=== PATIENT | male | born 1965 | race Caucasian/White ===

== ENCOUNTER 2022-08-29 00:25 | Inpatient (IN) ==
[2022-08-29 02:20] LABS: Hematocrit (blood only) 19.4 % (40.1-51.0); Hemoglobin 5.9 g/dl (14.0-18.0); Mean Corpuscular Hemoglobin 30.4 pg (25.0-34.0); Mean Corpuscular Hgb Conc 30.4 g/dL (32.0-36.0); Mean Platelet Volume 10.7 fL (9.4-12.4); Nucleated RBC # (auto) 0.19 K/uL (0-0); Nucleated RBC % (auto) 1.2 %; Platelet Count 334 K/uL (130-400); RDW Coefficient of Variation 15.5 % (11.5-14.5); RDW Standard Deviation 55.3 fL (36.4-46.3); Red Blood Count 1.94 M/uL (4.63-6.08); White Blood Count 15.91 K/ul (4.8-10.8)
[2022-08-29 02:21] LABS: Albumin Globulin Ratio 1.2 (0.9-2); Albumin Level 3.2 gm/dl (3.4-5.0); BUN Creatinine Ratio 23.3 (10-20); Bilirubin,Total 0.6 mg/dl (0.2-1.0); Calcium 9.1 mg/dl (8.5-10.1); Creatinine Clr Calc Pharmacy 74.9 ml/min; Est GFR (African American) 40.5 ml/min; Globulin 2.7 gm/dl (2.5-4.0); Potassium 4.7 mmol/L (3.5-5.1); Total Protein 5.9 gm/dl (6.0-8.3)
[2022-08-29 02:43] LABS: Basophils # (auto) 0.04 K/uL (0-0.2); Basophils % (auto) 0.3 %; Eosinophils # (auto) 0.33 K/uL (0-0.50); Eosinophils % (auto) 2.1 %; Hypochromasia Present; Immature Granulocytes % (auto) 0.6 %; Lymphocytes % (auto) 8.8 %; Monocytes % (auto) 8.8 %; Neutrophils # (auto) 12.64 K/uL (1.4-6.5); Neutrophils % (auto) 79.4 %; Stomatocytes 2+
[2022-08-29 02:54] LABS: Troponin I High Sensitivity 342.7 pg/ml (0-20)
[2022-08-29] MEDS ORDERED: CEFEPIME 2,000 MG/20 ML VIAL IV STA (03:09)
[2022-08-29] MEDS ORDERED: SODIUM CHLORIDE 0.9% 250 ML IV PRN (03:09)
[2022-08-29] MEDS ORDERED: SODIUM CHLORIDE 0.9% 1000ML 1,000 ML IV SCH (03:15)
--- NOTE | 2022-08-29 03:23 | Emergency Department Note ---
History of Present Illness General Chief complaint: Weakness Time Seen by Provider: 08/29/22 02:30 Source: patient and family Limitations: no limitations History of Present Illness Provider complaint: Weakness This is a 56-year-old male presents to the emergency department with family at bedside due to concern for increased weakness. at bedside states patient had 2 days of bloody stools last week. He had bright red blood and passage of clots. She denies any preceding melena. No prior history of GI bleed. She states he does not use any blood thinners. Patient denies any abdominal pain. She states he has had increased fatigue over the last several days and today seemed much weaker compared to normal. No recent fevers, chills, cough or cold symptoms. Patient has never had a colonoscopy. Home Medications Medication Instructions Recorded Confirmed Type carvedilol 6.25 mg tablet 12.5 mg PO AMHS 08/29/22 08/29/22 History verapamil 240 mg 24 hr 240 mg PO QAM 08/29/22 08/29/22 History capsule,extended release Allergies Allergy/AdvReac Type Severity Reaction Status Date / Time Iodinated Contrast Media Allergy Hives Verified 08/29/22 01:44 iodine Allergy Hives Verified 08/29/22 01:44 Past Med/Surg History Medical History (Updated 08/30/22 @ 05:05 by Nina Corona DO) Obesity hypoventilation syndrome Social History Smoking Status: Never smoker Hx Alcohol Use: No Hx Substance Use: No Preferred Language: Syriac Communication Ability: Effective 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 Beliefs That Will Affect Care: None Current Living Situation: Spouse Feels Safe at Home: Yes Review of Systems A total of 10 systems reviewed and were otherwise negative All systems reviewed & are unremarkable except as noted in HPI & below Physical Exam Vital Signs Vital Signs - 24 hr 08/29/22 05:52 08/29/22 05:40 08/29/22 05:50 Temperature 37.4 C Temperature Source Axillary Pulse Rate 79 75 87 Pulse Rate from SpO2 Sensor 87 86 Respiratory Rate 26 H 26 H 23 Blood Pressure 132/79 Blood Pressure Mean 96 Pulse Oximetry 93 80 L 91 Oxygen Flow Rate 3 08/29/22 05:53 08/29/22 05:53 08/29/22 06:00 Temperature Temperature Source Pulse Rate 92 H Pulse Rate from SpO2 Sensor 93 H Respiratory Rate 21 Blood Pressure 132/79 134/76 Blood Pressure Mean 96 95 Pulse Oximetry 96 Oxygen Flow Rate 08/29/22 06:00 08/29/22 06:10 Temperature Temperature Source Pulse Rate 78 96 H Pulse Rate from SpO2 Sensor 86 82 Respiratory Rate 21 18 Blood Pressure Blood Pressure Mean Pulse Oximetry 76 L 90 Oxygen Flow Rate GENERAL: alert, unwell appearing, well nourished, no distress, non-toxic, BMI>56 EYE EXAM: normal conjunctiva, PERRL and EOM's grossly intact OROPHARYNX: no exudate, no erythema, lips, buccal mucosa, and tongue normal and mucous membranes are dry NECK: supple, no nuchal rigidity, no adenopathy, non-tender LUNGS: Clear to auscultation. Normal chest wall mechanics, no w/r/r HEART: no murmurs, S1 normal and S2 normal ABDOMEN: abdomen soft, non-tender, normo-active bowel sounds, no masses, no rebound or guarding. BACK: Back is symmetrical on inspection and there is no deformity, no midline tenderness, no CVA tenderness. SKIN: no rashes and no bruising UPPER EXTREMITIES: upper extremities are grossly normal. FROM, nml pulses b/l. LOWER EXTREMITIES: No pitting edema. FROM, nml pulses b/l. NEURO EXAM: Somnolent but arousable, is oriented when awake, cranial nerves II- XII grossly intact, normal speech, no gross weakness of arms, no gross weakness of legs. Gross sensation intact. Course Administered Medications Acetaminophen (Acetaminophen 325 Mg Tab) 650 mg PO Q4H PRN PRN Reason: Pain or Fever Stop: 09/28/22 07:58 Last Admin: 08/30/22 04:27 Dose: 650 mg Documented By: FLORENTINO Sodium Chloride (Nss 1000ml) 1,000 mls @ 100 mls/hr IV .Q10H STACY Stop: 09/28/22 22:29 Last Infusion: 08/30/22 05:05 Dose: 0 mls/hr Documented By: Admin: 08/29/22 23:44 Dose: 100 mls/hr Documented By: GOLDIE Pantoprazole Sodium 40 mg/ (Syringe) 10 mls @ 5 mls/min IV BID STACY Stop: 09/28/22 22:29 Last Admin: 08/29/22 23:37 Dose: 5 mls/min Documented By: GOLDIE Sodium Chloride (Nss) 250 mls @ 15 mls/hr IV .[id number] PRN PRN Reason: For Transfusion Duration Stop: 08/30/22 13:10 Last Admin: 08/30/22 04:05 Dose: 15 mls/hr Documented By: FLORENTNIO Metoprolol Tartrate (Metoprolol Tartrate 1 Mg/Ml Vial) 2.5 mg IV Q6H STACY Stop: 09/28/22 11:59 Last Admin: 08/30/22 00:28 Dose: 2.5 mg Documented By: Admin: 08/29/22 18:54 Dose: Not Given Documented By: Admin: 08/29/22 12:44 Dose: 2.5 mg Documented By: PETER Verapamil HCl (Verapamil Hcl 240 Mg Tabcr) 240 mg PO QAM [facility] Stop: 09/28/22 08:59 Last Admin: 08/29/22 12:34 Dose: Not Given Documented By: PETER Discontinued Medications Albuterol (Albut/Ipratrop 3mg/0.5mg Neb 3 Ml Vial) 3 ml NEB NOW STA; Protocol Stop: 08/29/22 06:08 Last Admin: 08/29/22 06:37 Dose: 3 ml Documented By: SANTIAGO Cefepime HCl (Maxipime) 2,000 mg in 20 mls @ 5 mls/min IV NOW STA; Protocol Stop: 08/29/22 03:12 Last Admin: 08/29/22 03:53 Dose: 5 mls/min Documented By: SANTIAGO Sodium Chloride (Nss 1000ml) 1,000 mls @ 125 mls/hr IV .Q8H STACY Stop: 09/28/22 03:14 Last Infusion: 08/29/22 06:38 Dose: 0 mls/hr Documented By: Admin: 08/29/22 03:53 Dose: 125 mls/hr Documented By: SANTIAGO Sodium Chloride (Nss 1000ml) 1,000 mls @ 75 mls/hr IV .[id number] ONE Stop: 08/29/22 19:40 Last Infusion: 08/29/22 21:45 Dose: 0 mls/hr Documented By: Admin: 08/29/22 06:39 Dose: 75 mls/hr Documented By: APTRICK Metoprolol Tartrate (Metoprolol Tartrate 1 Mg/Ml Vial) 2.5 mg IV NOW STA Stop: 08/29/22 07:25 Last Admin: 08/29/22 08:10 Dose: 2.5 mg Documented By: ALEK Critical Care Time Critical Care Time: Yes Total Critical Care Time: 41 Critical care of 41 min performed to assess and manage high likelihood of life- threatening severe anemia and GI bleed, involving labs and imaging performed with assessment to evaluate anemia and GI bleed diagnosis with frequent reassessment. This time includes bedside time, treatment discussions with patient/family/consultants, documentation time and excludes procedure time. Medical Decision Making Differential Diagnosis Differential diagnosis includes etiologies such as diverticulosis, AVM, coagulopathy, colitis, inflammatory bowel disease, malignancy, Saba-Anguiano tear, esophagitis, peptic ulcer disease, variceal bleed, gastritis, epistaxis, fissure, hemorrhoids, as well as others were entertained. Medical Records Attestation: I reviewed the patient's medical records. Home Medications Current Medication List: was personally reviewed by me Laboratory Data Attestation: I reviewed the patient's lab results. Result diagrams: 08/30/22 01:38 08/29/22 15:50 Lab Results 08/29/22 08/29/22 08/29/22 Range/Units 01:14 01:14 01:14 WBC 15.91 H (4.8-10.8) K/ul RBC 1.94 L (4.63-6.08) M/uL Hgb 5.9 L* (14.0-18.0) g/dl Hct 19.4 L* (40.1-51.0) % MCV 100.0 (80.0-100.0) fL MCH 30.4 (25.0-34.0) pg MCHC 30.4 L (32.0-36.0) g/dL RDW Std Deviation 55.3 H (36.4-46.3) fL RDW Coeff of Cheryl 15.5 H (11.5-14.5) % Plt Count 334 (130-400) K/uL MPV 10.7 (9.4-12.4) fL Immature Gran % (Auto) 0.6 % Neut % (Auto) 79.4 % Lymph % (Auto) 8.8 % [place] % (Auto) 8.8 % Eos % (Auto) 2.1 % Baso % (Auto) 0.3 % Neut # (Auto) 12.64 H (1.4-6.5) K/uL Lymph # (Auto) 1.40 (1.2-3.4) K/uL [place] # (Auto) 1.40 H (0.24-0.82) K/uL Eos # (Auto) 0.33 (0-0.50) K/uL Baso # (Auto) 0.04 (0-0.2) K/uL Immature Gran # (Auto) 0.10 H (0.00-0.02) K/uL Absolute Nucleated RBC 0.19 H (0-0) K/uL Nucleated RBC % (auto) 1.2 % Hypochromasia Present Stomatocytes 2+ PT 11.0 (9.0-12.0) Seconds INR 1.0 (0.9-1.1) Sodium 139 (136-145) mmol/L Potassium 4.7 (3.5-5.1) mmol/L Chloride 103 (98-107) mmol/L Carbon Dioxide 29 (21-32) mmol/L Anion Gap 7 (3-11) BUN 48 H (6-23) mg/dl Creatinine 2.06 H (0.6-1.4) mg/dl Est Cr Clr Drug Dosing 74.9 ml/min Est GFR ( Amer) 40.5 ml/min Est GFR (Non-Af Amer) 35.0 ml/min BUN/Creatinine Ratio 23.3 H (10-20) Glucose 151 H (70-99(Fasting)) mg/dl Calcium 9.1 (8.5-10.1) mg/dl Total Bilirubin 0.6 (0.2-1.0) mg/dl AST 12 L (13-39) U/L ALT 10 (7-52) U/L Alkaline Phosphatase 55 (34-104) U/L Troponin I High Sens 342.7 H* (0-20) pg/ml Total Protein 5.9 L (6.0-8.3) gm/dl Albumin 3.2 L (3.4-5.0) gm/dl Globulin 2.7 (2.5-4.0) gm/dl Albumin/Globulin Ratio 1.2 (0.9-2) TSH (0.300-4.500) uIu/ml Blood Type Blood Type Recheck Antibody Screen Crossmatch 08/29/22 08/29/22 08/29/22 Range/Units 01:14 03:02 04:58 WBC (4.8-10.8) K/ul RBC (4.63-6.08) M/uL Hgb (14.0-18.0) g/dl Hct (40.1-51.0) % MCV (80.0-100.0) fL MCH (25.0-34.0) pg MCHC (32.0-36.0) g/dL RDW Std Deviation (36.4-46.3) fL RDW Coeff of Cheryl (11.5-14.5) % Plt Count (130-400) K/uL MPV (9.4-12.4) fL Immature Gran % (Auto) % Neut % (Auto) % Lymph % (Auto) % [place] % (Auto) % Eos % (Auto) % Baso % (Auto) % Neut # (Auto) (1.4-6.5) K/uL Lymph # (Auto) (1.2-3.4) K/uL [place] # (Auto) (0.24-0.82) K/uL Eos # (Auto) (0-0.50) K/uL Baso # (Auto) (0-0.2) K/uL Immature Gran # (Auto) (0.00-0.02) K/uL Absolute Nucleated RBC (0-0) K/uL Nucleated RBC % (auto) % Hypochromasia Stomatocytes PT (9.0-12.0) Seconds INR (0.9-1.1) Sodium (136-145) mmol/L Potassium (3.5-5.1) mmol/L Chloride (98-107) mmol/L Carbon Dioxide (21-32) mmol/L Anion Gap (3-11) BUN (6-23) mg/dl Creatinine (0.6-1.4) mg/dl Est Cr Clr Drug Dosing ml/min Est GFR ( Amer) ml/min Est GFR (Non-Af Amer) ml/min BUN/Creatinine Ratio (10-20) Glucose (70-99(Fasting)) mg/dl Calcium (8.5-10.1) mg/dl Total Bilirubin (0.2-1.0) mg/dl AST (13-39) U/L ALT (7-52) U/L Alkaline Phosphatase (34-104) U/L Troponin I High Sens (0-20) pg/ml Total Protein (6.0-8.3) gm/dl Albumin (3.4-5.0) gm/dl Globulin (2.5-4.0) gm/dl Albumin/Globulin Ratio (0.9-2) TSH 1.398 (0.300-4.500) uIu/ml Blood Type O Negative Blood Type Recheck O Negative Antibody Screen NEGATIVE Crossmatch See Detail Imaging Data My Impression: X-ray: I interpreted the following studies. Chest: A single view study of the chest was reviewed and was negative for cardiomegaly, focal infiltrate, effusion, pulmonary edema. Appearance of wide mediastinum. Radiologist's Impression: CT abdomen and pelvis without contrast: No bowel obstruction. Evaluation of the ascending colon is limited by partial exclusion and artifact. No free intraperitoneal fluid or pneumoperitoneum. Liver, gallbladder, pancreas, spleen and adrenal glands are unremarkable. The kidneys are somewhat atrophic in appearance with probable cortical cyst. No hydronephrosis or obstructing nephrolithiasis. The retroperitoneal vascular structures are unremarkable. No retroperitoneal hematoma. The bladder is unremarkable. No acute osseous or obvious significant overlying soft tissue abnormality, accounting for limitations with partial exclusion and artifact, to explain the patient's reported anemia. Radiologist: Rony Cevallos MD CT chest without contrast: Slightly restrictive appearance of the lungs, presumably from prominent overlying soft tissues, with subsegmental atelectatic changes. No pleural effusion or pneumothorax. The thoracic aorta and cardiac chambers are unremarkable. No pericardial effusion. No mediastinal traumatic injury or adenopathy. No acute osseous or significant overlying acute soft tissue abnormality to explain the patient's reported anemia. Radiologist: Rony Cevallos, ECG Data Attestation: I personally reviewed and interpreted this ECG as follows: Indication: + weakness Rate (beats per minute): 80 Rhythm: + normal sinus ECG Intervals/blocks: + Normal QRS and + Normal QT ECG [place]: + Normal ECG ST segments: + Nonspecific ST abnormalities MDM Narrative An order was placed for continuous cardiac monitoring. The monitor shows a rate of _92_ with _normal sinus_ rhythm. This is a 56-year-old male presents emergency department due to family's concern for weakness and recent GI bleed. Patient hemodynamically stable with borderline tachycardia initially. Patient normotensive and afebrile. Labs drawn and sent and patient noted to be severely anemic. No prior GI history, no prior screening colonoscopy. Patient's somnolent initially and provided most of initial history, however patient could be aroused and answer questions of orientation appropriately however deferred to his to answer additional questioning. Blood consent obtained from at bedside with patient's verbal consent. Patient does not use any antiplatelet or anticoagulation therapy. 2 units of packed red cells were ordered. Patient also found to have acute kidney injury of unclear etiology. Patient was noted to have symptoms of RUTH at bedside while somnolent. CT imaging reassuring. Patient and updated on all results and the need for transfusion as well as additional inpatient evaluation and management. They verbalized understanding and were in agreement with the plan. Impression & Plan Weakness, Severe anemia, Acute GI bleeding, Elevated troponin, CHERYL (acute kidney injury) Discharge Plan Visit Data Chief Complaint: Weakness ED Provider: Nina Corona Discharge Problem: Weakness, Severe anemia, Acute GI bleeding, Elevated troponin, CHERYL (acute kidney injury) Patient Disposition: Admitted As Inpatient Discharge Instructions Interventions: ED Discharge Assessment Last Done: 08/29/22 16:48
--- NOTE | 2022-08-29 05:18 | History & Physical Report ---
Date of Service August 29, 2022 Assessment & Plan (1) Encephalopathy: Plan: Multifactorial : Respiratory failure, possible OHS, untreated RUTH (patient still has to go for a sleep study as per .) Acute on chronic anemia secondary to L GIB rule out C. difficile ARF on CKD Rule out UTI, possible sepsis Troponin elevation secondary to illness hypertension, stable hyperlipidemia, statin noncompliance morbid obesity hx gout/rheumatoid arthritis chronic back pain medication noncompliance as per records Hyperglycemia likely prediabetes, hemoglobin A1c of 5.31 July 2022 as per outpatient records ongoing tobacco abuse PCU Baseline ABG BiPAP for now Pulmonary consult Re: Respiratory failure, probable RUTH Stool C. difficile GI consult Re: L GIB Anemia work-up, transfuse PRBC to maintain hemoglobin greater than 7 and or for symptomatic anemia Starks catheter now, baseline UA, monitor creatinine response to IVF CS, check lactic acid Trend troponin, TTE if with progression. Nicotine patch DVT prophylaxis. SCDs Re: GI bleed Full code as per , Ms. Rima Bowie. She requests updates from providers through [phone]. Total critical care time was 40 minutes. Text document was generated using [employer] voice recognition software. It may contain grammatical or spelling errors. Kindly contact undersigned for clarification of any documentation item in question. History of Present Illness Chief Complaint: Weakness, rectal bleed as per Primary Care Provider: Dr. Holcomb History obtained from patient, family, and records. Limited history from patient secondary to lethargy Medical history significant for hypertension, hyperlipidemia, CRI (baseline creatinine 1.4 ), chronic anemia (baseline hemoglobin of 9 ), morbid obesity, possible RUTH as per records, gout, rheumatoid arthritis, chronic back pain, medication noncompliance as per records, ongoing tobacco abuse. Patient moved back to [place] from [place] last June 2022. 3 hospital confinements at [place] for kidney failure and hypoxia prior to return to [place]. 3 days ago, patient started feeling sick as per . Nausea, vomiting, bloody diarrhea. Increasing weakness. No known sick contacts. No recent antibiotic Rx. No recent travel. Patient increasingly sleepy as per . No headache complaints as per . Patient brought to the ER for evaluation. Cefepime administered at the ER for possible infection. 2 units PRBC ordered to be transfused at the ER with hemoglobin of 5.9. Episodic apnea at the ER. Medical History as above Surgical History : Toe surgery, left breast biopsy, knee surgeries, tonsillectomy/adenoidectomy, dental surgery Family History : DM, hypertension Personal/Social history : 5 cigarettes a day, no EtOH intake, disabled Allergies Allergy/AdvReac Type Severity Reaction Status Date / Time Iodinated Contrast Media Allergy Hives Verified 08/29/22 01:44 iodine Allergy Hives Verified 08/29/22 01:44 Home Medications Medication Instructions Recorded Confirmed Type carvedilol 6.25 mg tablet 12.5 mg PO AMHS 08/29/22 08/29/22 History verapamil 240 mg 24 hr 240 mg PO QAM 08/29/22 08/29/22 History capsule,extended release Past Med/Surg History Social History Smoking Status: Never smoker Hx Alcohol Use: No Hx Substance Use: No Preferred Language: Kiswahili Communication Ability: Effective Surgical Technologist Required: No Beliefs That Will Affect Care: None Current Living Situation: Spouse Feels Safe at Home: Yes Review of Systems Review of Systems: Could not be reliably obtained secondary to lethargic state Physical Exam Physical Exam: GENERAL: uncomfortable, lethargic, episodic apnea, minimal respiratory distress SKIN: Pallor, warm HEENT: Pale palpebral conjunctivae, no ptosis, dry buccal mucosa, nasal cannula in place NECK : Supple, short neck, no tenderness CHEST : CTA, no tenderness HEART : Decreased breath sounds, scattered expiratory wheezes, no obvious murm urs ABDOMEN: Some distention, nontender EXTREMITIES : Bilateral LE swelling , no LE tenderness, no other conspicuous deformities noted NEUROLOGIC : Lethargic, no facial asymmetry, gait and stance not assessed Results & Data Results & Data ([facility]) Vital Signs (Past 12 Hours) Vital Signs Temp Pulse Resp BP Pulse Ox O2 Del Method O2 Flow Rate 08/29/22 04:40 77 26 H 88 L Nasal Cannula 3 08/29/22 04:31 147/105 H 08/29/22 04:31 83 16 90 Nasal Cannula 3 08/29/22 04:30 79 19 90 Nasal Cannula 3 08/29/22 04:20 91 H 30 H 92 08/29/22 04:10 93 H 21 94 08/29/22 04:00 90 18 89 L Nasal Cannula 3 08/29/22 04:00 145/75 H 08/29/22 03:50 70 22 95 08/29/22 03:40 91 H 16 94 08/29/22 03:35 140/86 08/29/22 03:10 94 H 17 08/29/22 03:00 102 H 22 08/29/22 03:00 159/100 H 08/29/22 02:50 92 H 25 H 08/29/22 02:40 84 26 H 08/29/22 02:30 102 H 16 08/29/22 02:30 175/77 H 08/29/22 02:20 91 H 18 08/29/22 02:10 93 H 17 08/29/22 02:00 101 H 23 08/29/22 02:00 146/98 H 08/29/22 01:50 90 29 H 08/29/22 01:40 92 H 28 H 08/29/22 01:30 106 H 23 94 08/29/22 01:30 146/96 H 08/29/22 01:20 104 H 28 H 92 08/29/22 01:10 104 H 23 90 08/29/22 01:00 87 22 08/29/22 01:00 144/66 H 08/29/22 00:50 106 H 16 87 L 08/29/22 00:40 100 H 33 H 87 L 08/29/22 00:35 94 H 29 H 86 L 08/29/22 01:20 98 Nasal Cannula 3 08/29/22 00:19 Room Air 08/29/22 00:19 36.7 C 92 H 25 H 138/76 93 Room Air Laboratory Results Laboratory Results WBC 15.91 K/ul (4.8-10.8) H 08/29/22 01:14 RBC 1.94 M/uL (4.63-6.08) L 08/29/22 01:14 Hgb 5.9 g/dl (14.0-18.0) L* 08/29/22 01:14 Hct 19.4 % (40.1-51.0) L* 08/29/22 01:14 MCV 100.0 fL (80.0-100.0) 08/29/22 01:14 MCH 30.4 pg (25.0-34.0) 08/29/22 01:14 MCHC 30.4 g/dL (32.0-36.0) L 08/29/22 01:14 RDW Std Deviation 55.3 fL (36.4-46.3) H 08/29/22 01:14 RDW Coeff of Cheryl 15.5 % (11.5-14.5) H 08/29/22 01:14 Plt Count 334 K/uL (130-400) 08/29/22 01:14 MPV 10.7 fL (9.4-12.4) 08/29/22 01:14 Immature Gran % (Auto) 0.6 % 08/29/22 01:14 Neut % (Auto) 79.4 % 08/29/22 01:14 Lymph % (Auto) 8.8 % 08/29/22 01:14 [place] % (Auto) 8.8 % 08/29/22 01:14 Eos % (Auto) 2.1 % 08/29/22 01:14 Baso % (Auto) 0.3 % 08/29/22 01:14 Neut # (Auto) 12.64 K/uL (1.4-6.5) H 08/29/22 01:14 Lymph # (Auto) 1.40 K/uL (1.2-3.4) 08/29/22 01:14 [place] # (Auto) 1.40 K/uL (0.24-0.82) H 08/29/22 01:14 Eos # (Auto) 0.33 K/uL (0-0.50) 08/29/22 01:14 Baso # (Auto) 0.04 K/uL (0-0.2) 08/29/22 01:14 Immature Gran # (Auto) 0.10 K/uL (0.00-0.02) H 08/29/22 01:14 Absolute Nucleated RBC 0.19 K/uL (0-0) H 08/29/22 01:14 Nucleated RBC % (auto) 1.2 % 08/29/22 01:14 Hypochromasia Present 08/29/22 01:14 Stomatocytes 2+ 08/29/22 01:14 PT 11.0 Seconds (9.0-12.0) 08/29/22 01:14 INR 1.0 (0.9-1.1) 08/29/22 01:14 Sodium 139 mmol/L (136-145) 08/29/22 01:14 Potassium 4.7 mmol/L (3.5-5.1) 08/29/22 01:14 Chloride 103 mmol/L (98-107) 08/29/22 01:14 Carbon Dioxide 29 mmol/L (21-32) 08/29/22 01:14 Anion Gap 7 (3-11) 08/29/22 01:14 BUN 48 mg/dl (6-23) H 08/29/22 01:14 Creatinine 2.06 mg/dl (0.6-1.4) H 08/29/22 01:14 Est Cr Clr Drug Dosing 74.9 ml/min 08/29/22 01:14 Est GFR ( Amer) 40.5 ml/min 08/29/22 01:14 Est GFR (Non-Af Amer) 35.0 ml/min 08/29/22 01:14 BUN/Creatinine Ratio 23.3 (10-20) H 08/29/22 01:14 Glucose 151 mg/dl (70-99(Fasting)) H 08/29/22 01:14 Calcium 9.1 mg/dl (8.5-10.1) 08/29/22 01:14 Total Bilirubin 0.6 mg/dl (0.2-1.0) 08/29/22 01:14 AST 12 U/L (13-39) L 08/29/22 01:14 ALT 10 U/L (7-52) 08/29/22 01:14 Alkaline Phosphatase 55 U/L (34-104) 08/29/22 01:14 Troponin I High Sens 342.7 pg/ml (0-20) H* 08/29/22 01:14 Total Protein 5.9 gm/dl (6.0-8.3) L 08/29/22 01:14 Albumin 3.2 gm/dl (3.4-5.0) L 08/29/22 01:14 Globulin 2.7 gm/dl (2.5-4.0) 08/29/22 01:14 Albumin/Globulin Ratio 1.2 (0.9-2) 08/29/22 01:14 TSH 1.398 uIu/ml (0.300-4.500) 08/29/22 01:14 Blood Type O Negative 08/29/22 03:02 Antibody Screen NEGATIVE 08/29/22 03:02 Crossmatch See Detail 08/29/22 03:[address] chest initial read: Slightlyrestrictive appearance to the lungs, presumablyfromprominent overlying soft tissues, with subsegmental atelectatic changes. No pleural effusion or pneumothorax. The thoracic aorta and cardiac chambers are unremarkable. No pericardial effusion. No mediastinal traumatic injuryor adenopathy. No acute osseous or significant overlying acute soft tissue abnormalityto explain the patient's reported anemia. CT abdomen pelvis initial read: No bowel obstruction. Evaluation of the ascending colon is limited bypartial exclusion and artifact. No free intraperitoneal fluid or pneumoperitoneum. The liver, gallbladder, pancreas, spleen and adrenal glands are unremarkable. The kidneys are somewhat atrophic in appearance with probable cortical cysts. No hydronephrosis or obstructing nephrolithiasis. The retroperitoneal vascular structures are unremarkable. No retroperitoneal hematoma. The bladder is unremarkable. No acute osseous or obvious significant overlying soft tissue abnormality, accounting for limitations with partial exclusion and artifact, to explain the patient's reported anemia. EKG as per my interpretation : Rate 80, NSR, LAD, LAFB, no ischemia
[2022-08-29 05:42] LABS: Influenza A virus by PCR Negative (Neg); Influenza B virus by PCR Negative (Neg); RSV by PCR Negative (Neg); SARS CoV2 RNA(COVID-19) Ceph NEGATIVE (Negative)
[2022-08-29] MEDS ORDERED: ALBUT/IPRATROP 3MG/0.5MG NEB 3 ML VIAL NEB STA (06:07)
[2022-08-29] MEDS ORDERED: SODIUM CHLORIDE 0.9% 1000ML 1,000 ML IV ONE (06:21)
[2022-08-29] MEDS ORDERED: METOPROLOL TARTRATE 1 MG/ML VIAL IV STA (07:24)
[2022-08-29 07:37] LABS: Reticulocytes # 0.16 10^6/uL (0.02-0.10)
--- NOTE | 2022-08-29 07:40 | CT Scan Report ---
CT OF THE CHEST WITHOUT IV CONTRAST CLINICAL HISTORY: New anemia. COMPARISON STUDY: No previous studies for comparison. CT DOSE: 3858.11 mGy.cm TECHNIQUE: Axial images of the chest were obtained without IV contrast. Images were reviewed in the axial, sagittal, and coronal planes. IV contrast was not administered for this examination. Automat ed exposure control was utilized for the study. A dose lowering technique was utilized adhering to t he principles of ALARA. FINDINGS: This study is compromised given body wall contacting the gantry with resultant artifact. M ild cardiomegaly is noted. There is no pericardial effusion. No enlarged axillary, mediastinal or hil ar lymph nodes are present. No hematoma is identified within the chest. The right chest is partially obscured on this exam. Linear and groundglass opacities within lungs favor atelectasis. No consolidat ion to suggest pneumonia. There is no pneumothorax or pleural effusion. No acute fracture or suspicio us lesion within the bony thorax is noted. The abdomen and pelvis CT will be reported separately. IMPRESSION: 1. No acute process within the chest. No hematoma identified. Right hemithorax partially obscured by artifact. 2. Mild cardiomegaly. ACT 112: Negative or not required by law. Electronically signed by: Shan Pedroza M.D. 08/29/2022 7:39 AM
--- NOTE | 2022-08-29 07:53 | XRay Report ---
XR chest 1V portable CLINICAL HISTORY: weakness COMPARISON STUDY: No previous studies for comparison. FINDINGS: Cardiomegaly is noted. There is no evidence for pulmonary edema. There is no pneumothorax o r pleural effusion. No consolidation is identified to suggest pneumonia. Mediastinal widening is due to mediastinal lipomatosis. IMPRESSION: No acute cardiopulmonary findings. Cardiomegaly. ACT 112: Negative or not required by law. Electronically signed by: Shan Pedroza M.D. 08/29/2022 7:51 AM
[2022-08-29 08:23] LABS: Troponin I High Sensitivity 460.9 pg/ml (0-20)
[2022-08-29 08:38] LABS: Magnesium 2.3 mg/dl (1.7-2.4)
[2022-08-29 08:41] LABS: Vitamin B12 358 pg/ml (180-914)
--- NOTE | 2022-08-29 08:44 | Gastrointestinal Consultation ---
Date of Consultation August 29, 2022 Assessment & Plan (1) Rectal bleed: (2) Severe anemia: (3) Encephalopathy: Plan Is a 56-year-old male with history of morbid obesity, RUTH, CKD, chronic anemia, who presented today with his , for several days of weakness, reported nausea vomiting and some report of rectal bleeding, though not for several days according to ER staff. He is found to be severely anemic (acute on chronic) with a hemoglobin of 5.9, with elevated troponin, CHERYL, and with respiratory failure requiring BiPAP. Getting 2 of 2 units of PRBC at present. Etiology of his presentation not clear at this time. Does not appear to have liver disease based on his lab work and prior history; no known prior GIB or HE so etiology not likely hepatic Abd soft, nontender; No overt GI bleeding in the ER. He is hemodynamically stable. He is a smoker; is a known risk factor for PUD though history doesn't sound like melena. With ? bloody diarrhea could consider infectious GI source. - Will plan to speak to his upon her returning my call to get more a history - For now agree with transfusion PRN, trend H&H - Please monitor and document GI output - Await CTAP, cultures - NPO for now - Pulm consult pending - C. diff testing when stool is available - Supportive care with IVF - Could consider PPI to cover for UGI source - Will determine need and timing for possible endoscopy based on further history gathering, reviewing his ER w/u including CT Thank you for allowing us to participate in the care of this patient. Please call with any acute changes, questions or concerns. Please see addendum below with additional recommendation from my supervising physician. Supervising Physician Co-Signing Physician Notes I performed a history and physical examination of the patient today, including specifically on physical exam - soft abdomen. I have discussed the patient's management with the advanced practitioner. Please refer to the nurse practitioner's note for the documented findings and plan of care. Presented with respiratory failure requiring BiPAP, some encephalopathy. Incidentally his labs showed anemia, no clear hx of GI bleeding. No overt bleeding here in the hospital. Will plan for endoscopy only when he is fully awake and no requiring ventilatory support. Recall us if needed. History of Present Illness Reason for Consultation: LGIB Requesting Physician: Dr. Duque Attending Physician: Lindsay Currie MD History of Present Illness This is a 56 y/o male with PMHx morbid obesity, T2DM, RA on chronic prednisone, RUTH, chronic anemia (baseline HGB 9), CKD, HTN, HLD, gout, tobacco abuse, and others admitted after being brought in by his for weakness, report of n/v, bloody diarrhea 2-3 days ago (reportedly from ER nurse has not had any GIB in about 2 days). Pt is on Bipap and is obtunded, therefore history not obtainable from him (obtained from chart and ER staff; contacted his to speak by phone about his history but no answer and I left a voicemail). [facility] and his [facility] was reviewed. Has had hospitalizations this year (both [place] and [place]) for CHF, CHERYL. On arrival found to be in resp failure statting in the 80's and placed on Bipap; now satting 100%. Labs with ARF on CKD, acute on chronic anemia with HGB 5.9, crit 19.4%, plt 332, WBC 15.91, INR 1, iron of 15, normal lactate and procal, elevated troponin of > 400, EKG w/ NSR. CT chest and CXR nonacute, mild cardiomegaly. CTAP pending. Other than baby ASA I don't see that he is on any other AC. C diff ordered. He has been 1 unit pRBC with a second unit infusing now. Pt has not had any GIB since arrival to the ER. Remains HD Stable. Bcx, Ucx pending. I do not see a record of colonoscopy in his chart though there is a negative Cologuard from 2019. Allergies Allergies Allergy/AdvReac Type Severity Reaction Status Date / Time Iodinated Contrast Media Allergy Hives Verified 08/29/22 01:44 iodine Allergy Hives Verified 08/29/22 01:44 Home Medications Medication Instructions Recorded Confirmed Type carvedilol 6.25 mg tablet 12.5 mg PO AMHS 08/29/22 08/29/22 History verapamil 240 mg 24 hr 240 mg PO QAM 08/29/22 08/29/22 History capsule,extended release Patient History Medical History (Updated 08/29/22 @ 17:14 by Ross Alonso MD) Obesity hypoventilation syndrome Social History Smoking Status: Never smoker Hx Alcohol Use: No Hx Substance Use: No Preferred Language: Hungarian Communication Ability: Effective Drier Unloader Required: No Beliefs That Will Affect Care: None Current Living Situation: Spouse Feels Safe at Home: Yes Review of Systems Review of Systems: Unobtainable due to reduced consciousness Physical Exam Constitutional: WD/WN, vitals as above (chronically ill) morbidly obese Eyes: PERRL, conjunctivae normal, anicteric sclerae ENMT: External ears and nose normal Respiratory: normal respiratory effort, lungs clear to auscultation Cardiovascular: RRR, soft systolic murmur Gastrointestinal (Abdomen): normal bowel sounds, soft, nontender, no hepatosplenomegaly (No gross melena or hematochezia, hematemesis) Skin: no rashes, warm and dry Psychiatric: obtunded Results & Data ([facility]) Vital Signs (Past 12 Hours) Vital Signs Temp Pulse Resp BP BP Pulse Ox O2 Del Method 08/29/22 08:09 36.9 C 82 18 156/99 H 08/29/22 07:20 36.9 C 89 20 197/97 H 98 08/29/22 06:35 23 97 08/29/22 06:35 23 97 BiPAP 08/29/22 06:30 89 20 76 L 08/29/22 06:30 131/90 08/29/22 06:22 128/78 08/29/22 06:22 96 H 19 91 08/29/22 06:20 71 28 H 96 08/29/22 06:10 96 H 18 90 08/29/22 06:00 78 21 76 L 08/29/22 06:00 134/76 08/29/22 05:53 132/79 08/29/22 05:53 92 H 21 96 08/29/22 05:50 87 23 91 08/29/22 05:40 75 26 H 80 L 08/29/22 05:30 87 16 77 L 08/29/22 05:30 139/60 08/29/22 05:20 96 H 21 80 L 08/29/22 05:10 85 21 88 L 08/29/22 05:00 96 H 27 H 80 L 08/29/22 05:00 149/73 H 08/29/22 04:50 93 H 30 H 82 L 08/29/22 06:15 131/90 08/29/22 06:15 37.1 C 82 25 H 95 08/29/22 05:52 37.4 C 79 26 H 132/79 93 08/29/22 04:40 77 26 H 88 L Nasal Cannula 08/29/22 04:31 147/105 H 08/29/22 04:31 83 16 90 Nasal Cannula 08/29/22 04:30 79 19 90 Nasal Cannula 08/29/22 04:20 91 H 30 H 92 08/29/22 04:10 93 H 21 94 08/29/22 04:00 90 18 89 L Nasal Cannula 08/29/22 04:00 145/75 H 08/29/22 03:50 70 22 95 08/29/22 03:40 91 H 16 94 08/29/22 03:35 140/86 08/29/22 03:10 94 H 17 08/29/22 03:00 102 H 22 08/29/22 03:00 159/100 H 08/29/22 02:50 92 H 25 H 08/29/22 02:40 84 26 H 08/29/22 02:30 102 H 16 08/29/22 02:30 175/77 H 08/29/22 02:20 91 H 18 08/29/22 02:10 93 H 17 08/29/22 02:00 101 H 23 08/29/22 02:00 146/98 H 08/29/22 01:50 90 29 H 08/29/22 01:40 92 H 28 H 08/29/22 01:30 106 H 23 94 08/29/22 01:30 146/96 H 08/29/22 01:20 104 H 28 H 92 08/29/22 01:10 104 H 23 90 08/29/22 01:00 87 22 08/29/22 01:00 144/66 H 08/29/22 00:50 106 H 16 87 L 08/29/22 00:40 100 H 33 H 87 L 08/29/22 00:35 94 H 29 H 86 L 08/29/22 01:20 98 Nasal Cannula 08/29/22 00:19 Room Air 08/29/22 00:19 36.7 C 92 H 25 H 138/76 93 Room Air O2 Flow Rate FiO2 08/29/22 08:09 08/29/22 07:20 08/29/22 06:35 40 08/29/22 06:35 40 08/29/22 06:30 08/29/22 06:30 08/29/22 06:22 08/29/22 06:22 08/29/22 06:20 08/29/22 06:10 08/29/22 06:00 08/29/22 06:00 08/29/22 05:53 08/29/22 05:53 08/29/22 05:50 08/29/22 05:40 08/29/22 05:30 08/29/22 05:30 08/29/22 05:20 08/29/22 05:10 08/29/22 05:00 08/29/22 05:00 08/29/22 04:50 08/29/22 06:15 08/29/22 06:15 3 08/29/22 05:52 3 08/29/22 04:40 3 08/29/22 04:31 08/29/22 04:31 3 08/29/22 04:30 3 08/29/22 04:20 08/29/22 04:10 08/29/22 04:00 3 08/29/22 04:00 08/29/22 03:50 08/29/22 03:40 08/29/22 03:35 08/29/22 03:10 08/29/22 03:00 08/29/22 03:00 08/29/22 02:50 08/29/22 02:40 08/29/22 02:30 08/29/22 02:30 08/29/22 02:20 08/29/22 02:10 08/29/22 02:00 08/29/22 02:00 08/29/22 01:50 08/29/22 01:40 08/29/22 01:30 08/29/22 01:30 08/29/22 01:20 08/29/22 01:10 08/29/22 01:00 08/29/22 01:00 08/29/22 00:50 08/29/22 00:40 08/29/22 00:35 08/29/22 01:20 3 08/29/22 00:19 08/29/22 00:19 Laboratory Results 08/29/22 08/29/22 08/29/22 Range/Units Unknown 07:18 07:18 WBC (4.8-10.8) K/ul RBC (4.63-6.08) M/uL Hgb (14.0-18.0) g/dl Hct (40.1-51.0) % MCV (80.0-100.0) fL MCH (25.0-34.0) pg MCHC (32.0-36.0) g/dL RDW Std Deviation (36.4-46.3) fL RDW Coeff of Cheryl (11.5-14.5) % Plt Count (130-400) K/uL MPV (9.4-12.4) fL Immature Gran % (Auto) % Neut % (Auto) % Lymph % (Auto) % [place] % (Auto) % Eos % (Auto) % Baso % (Auto) % Reticulocyte % (Auto) (0.5-2.0) % Neut # (Auto) (1.4-6.5) K/uL Lymph # (Auto) (1.2-3.4) K/uL [place] # (Auto) (0.24-0.82) K/uL Eos # (Auto) (0-0.50) K/uL Baso # (Auto) (0-0.2) K/uL Reticulocyte # (0.02-0.10) 10^6/uL Immature Gran # (Auto) (0.00-0.02) K/uL Absolute Nucleated RBC (0-0) K/uL Nucleated RBC % (auto) % Hypochromasia Stomatocytes PT (9.0-12.0) Seconds INR (0.9-1.1) Sodium (136-145) mmol/L Potassium (3.5-5.1) mmol/L Chloride (98-107) mmol/L Carbon Dioxide (21-32) mmol/L Anion Gap (3-11) BUN (6-23) mg/dl Creatinine (0.6-1.4) mg/dl Est Cr Clr Drug Dosing ml/min Est GFR ( Amer) ml/min Est GFR (Non-Af Amer) ml/min BUN/Creatinine Ratio (10-20) Glucose (70-99(Fasting)) mg/dl Estimat Average Glucose Hemoglobin A1c Lactate (0.4-2.0) mmol/L Calcium (8.5-10.1) mg/dl Magnesium (1.7-2.4) mg/dl Iron (35-175) mcg/dl Transferrin (200-360) mg/dl Ferritin (8-388) ng/ml Total Bilirubin (0.2-1.0) mg/dl AST (13-39) U/L ALT (7-52) U/L Alkaline Phosphatase (34-104) U/L Ammonia 37.0 (18-72) umol/L Total Creatine Kinase (30-223) U/L Troponin I High Sens (0-20) pg/ml Total Protein (6.0-8.3) gm/dl Albumin (3.4-5.0) gm/dl Globulin (2.5-4.0) gm/dl Albumin/Globulin Ratio (0.9-2) Vitamin B12 (180-914) pg/ml Folate (>5.38) ng/ml Procalcitonin 0.25 (0-0.5) ng/ml TSH (0.300-4.500) uIu/ml SARS-CoV-2 (PCR) NEGATIVE (Negative) Influenza Type A (PCR) Negative (Neg) Influenza Type B (PCR) Negative (Neg) RSV (RT-PCR) Negative (Neg) Blood Type Blood Type Recheck Antibody Screen Crossmatch 08/29/22 08/29/22 08/29/22 Range/Units 07:18 07:18 07:18 WBC (4.8-10.8) K/ul RBC (4.63-6.08) M/uL Hgb (14.0-18.0) g/dl Hct (40.1-51.0) % MCV (80.0-100.0) fL MCH (25.0-34.0) pg MCHC (32.0-36.0) g/dL RDW Std Deviation (36.4-46.3) fL RDW Coeff of Cheryl (11.5-14.5) % Plt Count (130-400) K/uL MPV (9.4-12.4) fL Immature Gran % (Auto) % Neut % (Auto) % Lymph % (Auto) % [place] % (Auto) % Eos % (Auto) % Baso % (Auto) % Reticulocyte % (Auto) 8.0 H (0.5-2.0) % Neut # (Auto) (1.4-6.5) K/uL Lymph # (Auto) (1.2-3.4) K/uL [place] # (Auto) (0.24-0.82) K/uL Eos # (Auto) (0-0.50) K/uL Baso # (Auto) (0-0.2) K/uL Reticulocyte # 0.16 H (0.02-0.10) 10^6/uL Immature Gran # (Auto) (0.00-0.02) K/uL Absolute Nucleated RBC (0-0) K/uL Nucleated RBC % (auto) % Hypochromasia Stomatocytes PT (9.0-12.0) Seconds INR (0.9-1.1) Sodium (136-145) mmol/L Potassium (3.5-5.1) mmol/L Chloride (98-107) mmol/L Carbon Dioxide (21-32) mmol/L Anion Gap (3-11) BUN (6-23) mg/dl Creatinine (0.6-1.4) mg/dl Est Cr Clr Drug Dosing ml/min Est GFR ( Amer) ml/min Est GFR (Non-Af Amer) ml/min BUN/Creatinine Ratio (10-20) Glucose (70-99(Fasting)) mg/dl Estimat Average Glucose Pending Hemoglobin A1c Pending Lactate 0.8 (0.4-2.0) mmol/L Calcium (8.5-10.1) mg/dl Magnesium (1.7-2.4) mg/dl Iron (35-175) mcg/dl Transferrin (200-360) mg/dl Ferritin (8-388) ng/ml Total Bilirubin (0.2-1.0) mg/dl AST (13-39) U/L ALT (7-52) U/L Alkaline Phosphatase (34-104) U/L Ammonia (18-72) umol/L Total Creatine Kinase (30-223) U/L Troponin I High Sens (0-20) pg/ml Total Protein (6.0-8.3) gm/dl Albumin (3.4-5.0) gm/dl Globulin (2.5-4.0) gm/dl Albumin/Globulin Ratio (0.9-2) Vitamin B12 (180-914) pg/ml Folate (>5.38) ng/ml Procalcitonin (0-0.5) ng/ml TSH (0.300-4.500) uIu/ml SARS-CoV-2 (PCR) (Negative) Influenza Type A (PCR) (Neg) Influenza Type B (PCR) (Neg) RSV (RT-PCR) (Neg) Blood Type Blood Type Recheck Antibody Screen Crossmatch 08/29/22 08/29/22 08/29/22 Range/Units 07:18 07:18 04:58 WBC (4.8-10.8) K/ul RBC (4.63-6.08) M/uL Hgb (14.0-18.0) g/dl Hct (40.1-51.0) % MCV (80.0-100.0) fL MCH (25.0-34.0) pg MCHC (32.0-36.0) g/dL RDW Std Deviation (36.4-46.3) fL RDW Coeff of Cheryl (11.5-14.5) % Plt Count (130-400) K/uL MPV (9.4-12.4) fL Immature Gran % (Auto) % Neut % (Auto) % Lymph % (Auto) % [place] % (Auto) % Eos % (Auto) % Baso % (Auto) % Reticulocyte % (Auto) (0.5-2.0) % Neut # (Auto) (1.4-6.5) K/uL Lymph # (Auto) (1.2-3.4) K/uL [place] # (Auto) (0.24-0.82) K/uL Eos # (Auto) (0-0.50) K/uL Baso # (Auto) (0-0.2) K/uL Reticulocyte # (0.02-0.10) 10^6/uL Immature Gran # (Auto) (0.00-0.02) K/uL Absolute Nucleated RBC (0-0) K/uL Nucleated RBC % (auto) % Hypochromasia Stomatocytes PT (9.0-12.0) Seconds INR (0.9-1.1) Sodium (136-145) mmol/L Potassium (3.5-5.1) mmol/L Chloride (98-107) mmol/L Carbon Dioxide (21-32) mmol/L Anion Gap (3-11) BUN (6-23) mg/dl Creatinine (0.6-1.4) mg/dl Est Cr Clr Drug Dosing ml/min Est GFR ( Amer) ml/min Est GFR (Non-Af Amer) ml/min BUN/Creatinine Ratio (10-20) Glucose (70-99(Fasting)) mg/dl Estimat Average Glucose Hemoglobin A1c Lactate (0.4-2.0) mmol/L Calcium (8.5-10.1) mg/dl Magnesium 2.3 (1.7-2.4) mg/dl Iron 15 L (35-175) mcg/dl Transferrin 299 (200-360) mg/dl Ferritin 25.0 (8-388) ng/ml Total Bilirubin (0.2-1.0) mg/dl AST (13-39) U/L ALT (7-52) U/L Alkaline Phosphatase (34-104) U/L Ammonia (18-72) umol/L Total Creatine Kinase 24 L (30-223) U/L Troponin I High Sens 460.9 H* D (0-20) pg/ml Total Protein (6.0-8.3) gm/dl Albumin (3.4-5.0) gm/dl Globulin (2.5-4.0) gm/dl Albumin/Globulin Ratio (0.9-2) Vitamin B12 358 (180-914) pg/ml Folate > 22.30 (>5.38) ng/ml Procalcitonin (0-0.5) ng/ml TSH (0.300-4.500) uIu/ml SARS-CoV-2 (PCR) (Negative) Influenza Type A (PCR) (Neg) Influenza Type B (PCR) (Neg) RSV (RT-PCR) (Neg) Blood Type Blood Type Recheck O Negative Antibody Screen Crossmatch 08/29/22 08/29/22 08/29/22 Range/Units 03:02 01:14 01:14 WBC (4.8-10.8) K/ul RBC (4.63-6.08) M/uL Hgb (14.0-18.0) g/dl Hct (40.1-51.0) % MCV (80.0-100.0) fL MCH (25.0-34.0) pg MCHC (32.0-36.0) g/dL RDW Std Deviation (36.4-46.3) fL RDW Coeff of Cheryl (11.5-14.5) % Plt Count (130-400) K/uL MPV (9.4-12.4) fL Immature Gran % (Auto) % Neut % (Auto) % Lymph % (Auto) % [place] % (Auto) % Eos % (Auto) % Baso % (Auto) % Reticulocyte % (Auto) (0.5-2.0) % Neut # (Auto) (1.4-6.5) K/uL Lymph # (Auto) (1.2-3.4) K/uL [place] # (Auto) (0.24-0.82) K/uL Eos # (Auto) (0-0.50) K/uL Baso # (Auto) (0-0.2) K/uL Reticulocyte # (0.02-0.10) 10^6/uL Immature Gran # (Auto) (0.00-0.02) K/uL Absolute Nucleated RBC (0-0) K/uL Nucleated RBC % (auto) % Hypochromasia Stomatocytes PT (9.0-12.0) Seconds INR (0.9-1.1) Sodium 139 (136-145) mmol/L Potassium 4.7 (3.5-5.1) mmol/L Chloride 103 (98-107) mmol/L Carbon Dioxide 29 (21-32) mmol/L Anion Gap 7 (3-11) BUN 48 H (6-23) mg/dl Creatinine 2.06 H (0.6-1.4) mg/dl Est Cr Clr Drug Dosing 74.9 ml/min Est GFR ( Amer) 40.5 ml/min Est GFR (Non-Af Amer) 35.0 ml/min BUN/Creatinine Ratio 23.3 H (10-20) Glucose 151 H (70-99(Fasting)) mg/dl Estimat Average Glucose Hemoglobin A1c Lactate (0.4-2.0) mmol/L Calcium 9.1 (8.5-10.1) mg/dl Magnesium (1.7-2.4) mg/dl Iron (35-175) mcg/dl Transferrin (200-360) mg/dl Ferritin (8-388) ng/ml Total Bilirubin 0.6 (0.2-1.0) mg/dl AST 12 L (13-39) U/L ALT 10 (7-52) U/L Alkaline Phosphatase 55 (34-104) U/L Ammonia (18-72) umol/L Total Creatine Kinase (30-223) U/L Troponin I High Sens 342.7 H* (0-20) pg/ml Total Protein 5.9 L (6.0-8.3) gm/dl Albumin 3.2 L (3.4-5.0) gm/dl Globulin 2.7 (2.5-4.0) gm/dl Albumin/Globulin Ratio 1.2 (0.9-2) Vitamin B12 (180-914) pg/ml Folate (>5.38) ng/ml Procalcitonin (0-0.5) ng/ml TSH 1.398 (0.300-4.500) uIu/ml SARS-CoV-2 (PCR) (Negative) Influenza Type A (PCR) (Neg) Influenza Type B (PCR) (Neg) RSV (RT-PCR) (Neg) Blood Type O Negative Blood Type Recheck Antibody Screen NEGATIVE Crossmatch See Detail 08/29/22 08/29/22 Range/Units 01:14 01:14 WBC 15.91 H (4.8-10.8) K/ul RBC 1.94 L (4.63-6.08) M/uL Hgb 5.9 L* (14.0-18.0) g/dl Hct 19.4 L* (40.1-51.0) % MCV 100.0 (80.0-100.0) fL MCH 30.4 (25.0-34.0) pg MCHC 30.4 L (32.0-36.0) g/dL RDW Std Deviation 55.3 H (36.4-46.3) fL RDW Coeff of Cheryl 15.5 H (11.5-14.5) % Plt Count 334 (130-400) K/uL MPV 10.7 (9.4-12.4) fL Immature Gran % (Auto) 0.6 % Neut % (Auto) 79.4 % Lymph % (Auto) 8.8 % [place] % (Auto) 8.8 % Eos % (Auto) 2.1 % Baso % (Auto) 0.3 % Reticulocyte % (Auto) (0.5-2.0) % Neut # (Auto) 12.64 H (1.4-6.5) K/uL Lymph # (Auto) 1.40 (1.2-3.4) K/uL [place] # (Auto) 1.40 H (0.24-0.82) K/uL Eos # (Auto) 0.33 (0-0.50) K/uL Baso # (Auto) 0.04 (0-0.2) K/uL Reticulocyte # (0.02-0.10) 10^6/uL Immature Gran # (Auto) 0.10 H (0.00-0.02) K/uL Absolute Nucleated RBC 0.19 H (0-0) K/uL Nucleated RBC % (auto) 1.2 % Hypochromasia Present Stomatocytes 2+ PT 11.0 (9.0-12.0) Seconds INR 1.0 (0.9-1.1) Sodium (136-145) mmol/L Potassium (3.5-5.1) mmol/L Chloride (98-107) mmol/L Carbon Dioxide (21-32) mmol/L Anion Gap (3-11) BUN (6-23) mg/dl Creatinine (0.6-1.4) mg/dl Est Cr Clr Drug Dosing ml/min Est GFR ( Amer) ml/min Est GFR (Non-Af Amer) ml/min BUN/Creatinine Ratio (10-20) Glucose (70-99(Fasting)) mg/dl Estimat Average Glucose Hemoglobin A1c Lactate (0.4-2.0) mmol/L Calcium (8.5-10.1) mg/dl Magnesium (1.7-2.4) mg/dl Iron (35-175) mcg/dl Transferrin (200-360) mg/dl Ferritin (8-388) ng/ml Total Bilirubin (0.2-1.0) mg/dl AST (13-39) U/L ALT (7-52) U/L Alkaline Phosphatase (34-104) U/L Ammonia (18-72) umol/L Total Creatine Kinase (30-223) U/L Troponin I High Sens (0-20) pg/ml Total Protein (6.0-8.3) gm/dl Albumin (3.4-5.0) gm/dl Globulin (2.5-4.0) gm/dl Albumin/Globulin Ratio (0.9-2) Vitamin B12 (180-914) pg/ml Folate (>5.38) ng/ml Procalcitonin (0-0.5) ng/ml TSH (0.300-4.500) uIu/ml SARS-CoV-2 (PCR) (Negative) Influenza Type A (PCR) (Neg) Influenza Type B (PCR) (Neg) RSV (RT-PCR) (Neg) Blood Type Blood Type Recheck Antibody Screen Crossmatch Diagnostic Findings CT chest: CT OF THE CHEST WITHOUT IV CONTRAST CLINICAL HISTORY: New anemia. COMPARISON STUDY: No previous studies for comparison. CT DOSE: 3858.11 mGy.cm TECHNIQUE: Axial images of the chest were obtained without IV contrast. Images were reviewed in the axial, sagittal, and coronal planes. IV contrast was not administered for this examination. Automated exposure control was utilized for the study. A dose lowering technique was utilized adhering to the principles of ALARA. FINDINGS: This study is compromised given body wall contacting the gantry with resultant artifact. Mild cardiomegaly is noted. There is no pericardial effusion. No enlarged axillary, mediastinal or hilar lymph nodes are present. No hematoma is identified within the chest. The right chest is partially obscured on this exam. Linear and groundglass opacities within lungs favor atelectasis. No consolidation to suggest pneumonia. There is no pneumothorax or pleural effusion. No acute fracture or suspicious lesion within the bony thorax is noted. The abdomen and pelvis CT will be reported separately. IMPRESSION: 1. No acute process within the chest. No hematoma identified. Right hemithorax partially obscured by artifact. 2. Mild cardiomegaly. CXR: XR chest 1V portable CLINICAL HISTORY: weakness COMPARISON STUDY: No previous studies for comparison. FINDINGS: Cardiomegaly is noted. There is no evidence for pulmonary edema. There is no pneumothorax or pleural effusion. No consolidation is identified to suggest pneumonia. Mediastinal widening is due to mediastinal lipomatosis. IMPRESSION: No acute cardiopulmonary findings. Cardiomegaly.
[2022-08-29 10:58] LABS: Estimated Average Glucose 114 mg/dl; Hemoglobin A1C 5.6 % (4.5-5.6)
--- NOTE | 2022-08-29 11:00 | CT Scan Report ---
CT abd pelvis wo con CLINICAL HISTORY: new anemia TECHNIQUE: Helical axial images of the abdomen and pelvis were obtained. Automated dose lowering tech niques and/or adjustment according to patient size were utilized for this exam. This exam was perfor med without intravenous contrast. COMPARISON: None available at the time of this dictation. FINDINGS: Lower chest: For findings above the diaphragm, please see CT chest performed same day. Liver: Unremarkable. No focal lesions are seen. Gallbladder and biliary tree: No calcified gallstones. Normal caliber wall. No intra- or extrahepatic biliary ductal dilation. Pancreas: Fatty replacement of the pancreas is seen. Spleen: Unremarkable. Adrenals: Unremarkable. Kidneys and ureters: Numerous intermediate density lesions are seen in the bilateral kidneys. Bladder: Unremarkable. Reproductive organs: Unremarkable. Bowel: A hiatal hernia is seen. The appendix is normal. Lymph nodes Retroperitoneal: Unremarkable. Pelvic: Unremarkable. Mesenteric: Unremarkable. Peritoneum: Normal. Vessels: Atherosclerotic calcifications are seen. Abdominal wall: Injection granulomata are seen. Bones: Degenerative changes in the visualized spine. IMPRESSION: 1. No acute abnormalities, in particular no evidence of intra-abdominal hemorrhage in this patient w ith anemia. 2. Bilateral kidneys are with intermediate density lesions likely representing hemorrhagic/proteinac eous cysts. Follow-up by ultrasound is recommended to exclude solid mass. ACT 112: Negative or not required by law. Electronically signed by: Taz Wang M.D. 08/29/2022 10:59 AM
[2022-08-29] MEDS: VERAPAMIL HCL 240 MG TABCR PO SCH (12:34)
[2022-08-29] MEDS: METOPROLOL TARTRATE 1 MG/ML VIAL IV SCH ×2 (12:44→18:54)
[2022-08-29] MEDS ORDERED: Flu Vaccine (Fluarix) 0.5mL SYR (Standard Dose) IM ONE (14:30)
[2022-08-29 16:25] LABS: BUN Creatinine Ratio 17.6 (10-20); Calcium 8.6 mg/dl (8.5-10.1); Creatinine Clr Calc Pharmacy 55.3 ml/min; Est GFR (African American) 28.1 ml/min; Est GFR (Non-African American) 24.2 ml/min
--- NOTE | 2022-08-29 16:39 | Electrocardiogram Report ---
Test Reason : Blood Pressure : / mmHG Vent. Rate : 080 BPM Atrial Rate : 080 BPM P-R Int : 146 ms QRS Dur : 112 ms QT Int : 378 ms P-R-T Axes : 034 -16 040 degrees QTc Int : 435 ms Normal sinus rhythm with sinus arrhythmia Normal ECG No previous ECGs available Confirmed by Ned Sen ([id number]) on 08/29/2022 4:38:28 PM Referred By: REFERRED SELF Confirmed By:Ned Sen
[2022-08-29 16:40] LABS: iSTAT Arterial Blood Gas HCO3 34 meg/L (19-24); iSTAT Arterial Blood Gas pCO2 57 mmHg (35-46); iSTAT Arterial Blood Gas pH 7.38 (7.35-7.45); iSTAT Arterial Blood Gas pO2 134 mmHg (80-95); iSTAT Carbon Dioxide 35 mmol/L (24-31); iSTAT Hematocrit < 15 % (42-52); iSTAT Potassium 5.9 mmol/L (3.3-5.0); iSTAT Sodium 138 mmol/L (135-144)
[2022-08-29 16:48] LABS: Troponin I High Sensitivity 326.5 pg/ml (0-20)
[2022-08-29 16:58] LABS: Hematocrit (blood only) 25.1 % (40.1-51.0); Hemoglobin 7.9 g/dl (14.0-18.0)
--- NOTE | 2022-08-29 17:17 | Pulmonary Consultation ---
Date of Consultation August 29, 2022 Assessment & Plan (1) Obesity hypoventilation syndrome: Agree with BiPAP when sleeping. He has evidence of chronic compensated hypercapnic respiratory failure based on ABG. Recommend outpatient BiPAP and follow-up with the sleep clinic. Wean O2 to maintain saturations around 90%. No signs of pneumonia. No role for increased dose of corticosteroids or antibiotics from pulmonary perspective. Thank you for this consult. Please call with questions. History of Present Illness Reason for Consultation: "Apnea. Respiratory failure" Attending Physician: Lindsay Currie MD History of Present Illness 56-year-old male with RUTH, chronic anemia, type 2 diabetes mellitus and morbid obesity who presented to the hospital due to increasing weakness and lethargy. He was found to be anemic and hypoxemic. History is difficult to obtain from the patient as he is currently on BiPAP. He is responsive to commands and follow simple commands such as squeezing fingers and wiggling toes. He denies any acute chest pain or shortness of breath. He had a CT of his chest earlier today which did not really show any acute issues. ABG shows chronic compensated hypercapnic respiratory failure. Discussed with nursing and hospitalist. Allergies Allergy/AdvReac Type Severity Reaction Status Date / Time Iodinated Contrast Media Allergy Hives Verified 08/29/22 01:44 iodine Allergy Hives Verified 08/29/22 01:44 Home Medications Medication Instructions Recorded Confirmed Type carvedilol 6.25 mg tablet 12.5 mg PO AMHS 08/29/22 08/29/22 History verapamil 240 mg 24 hr 240 mg PO QAM 08/29/22 08/29/22 History capsule,extended release Patient History Medical History (Updated 08/29/22 @ 17:14 by Ross Alonso MD) Obesity hypoventilation syndrome Social History Smoking Status: Never smoker Hx Alcohol Use: No Hx Substance Use: No Preferred Language: [place] Citizen Communication Ability: Effective 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 Eyes: Pupils are equal round and reactive to light. Conjunctivae are normal. Anicteric sclera. Ears nose, mouth and throat: BiPAP mask in place. Neck: Trachea is midline. Visual inspection is normal. Respiratory: Clear to auscultation bilaterally. No use of accessory muscles. No significant clubbing noted. Cardiovascular: Regular rate and rhythm. No murmurs. No edema. Gastrointestinal: Normal bowel sounds, soft, nontender and nondistended. No hepatosplenomegaly noted. Musculoskeletal: No cyanosis. Patient is able to move all extremities. Strength is 5 out of 5 in the upper and lower extremities. Skin: No rashes, warm dry and intact. Neurologic: No obvious focal neurological deficits seen. Psychiatric: Lethargic Results & Data Results & Data ([facility]) Vital Signs (Past 12 Hours) Vital Signs Temp Pulse Pulse Resp BP BP Pulse Ox 08/29/22 16:10 74 20 100 08/29/22 16:51 36.9 C 72 25 H 101/72 100 08/29/22 16:48 08/29/22 12:44 69 22 172/99 H 100 08/29/22 11:33 36.9 C 82 20 146/100 H 98 08/29/22 11:11 70 22 170/99 H 100 08/29/22 11:05 36.6 C 70 22 170/99 H 100 08/29/22 10:28 70 24 100 08/29/22 10:05 36.8 C 72 18 139/93 100 08/29/22 09:51 71 20 154/95 H 100 08/29/22 09:35 36.9 C 73 18 144/95 H 100 08/29/22 09:24 08/29/22 09:20 37 C 74 18 144/98 H 100 08/29/22 09:05 36.8 C 71 18 132/79 100 08/29/22 08:09 36.9 C 82 18 156/99 H 08/29/22 07:20 36.9 C 89 20 197/97 H 98 08/29/22 06:35 23 97 08/29/22 06:35 23 97 08/29/22 06:30 89 20 76 L 08/29/22 06:30 131/90 08/29/22 06:22 128/78 08/29/22 06:22 96 H 19 91 08/29/22 06:20 71 28 H 96 08/29/22 06:10 96 H 18 90 08/29/22 06:00 78 21 76 L 08/29/22 06:00 134/76 08/29/22 05:53 132/79 08/29/22 05:53 92 H 21 96 08/29/22 05:50 87 23 91 08/29/22 05:40 75 26 H 80 L 08/29/22 05:30 87 16 77 L 08/29/22 05:30 139/60 08/29/22 05:20 96 H 21 80 L 08/29/22 06:15 131/90 08/29/22 06:15 37.1 C 82 25 H 95 08/29/22 05:52 37.4 C 79 26 H 132/79 93 Pulse Ox O2 Del Method O2 Del Method O2 Flow Rate FiO2 08/29/22 16:10 30 08/29/22 16:51 BiPAP 08/29/22 16:48 BiPAP 08/29/22 12:44 BiPAP 08/29/22 11:33 08/29/22 11:11 BiPAP 08/29/22 11:05 08/29/22 10:28 40 08/29/22 10:05 08/29/22 09:51 BiPAP 08/29/22 09:35 08/29/22 09:24 100 BiPAP 08/29/22 09:20 08/29/22 09:05 08/29/22 08:09 08/29/22 07:20 08/29/22 06:35 40 08/29/22 06:35 BiPAP 40 08/29/22 06:30 08/29/22 06:30 08/29/22 06:22 08/29/22 06:22 08/29/22 06:20 08/29/22 06:10 08/29/22 06:00 08/29/22 06:00 08/29/22 05:53 08/29/22 05:53 08/29/22 05:50 08/29/22 05:40 08/29/22 05:30 08/29/22 05:30 08/29/22 05:20 08/29/22 06:15 08/29/22 06:15 3 08/29/22 05:52 3 PG Care Time/CCT Total # of Minutes Spent Total Time Spent with Patient: Total time spent is greater than 50% in coordination of care (as documented) at patient's floor/unit and/or counseling patient: Coding Level of Care Code 29577 Inpt Consult Level 3 Diagnoses Obesity hypoventilation syndrome E66.2
--- NOTE | 2022-08-29 21:52 | Communication Note ---
Date of Service: August 29, 2022 Pt was seen and examined for follow up of Anemia/weakness. He is lying in bed snoring. He was able to wake up with painful stimuli and fell asleep. Later in the afternoon I went to reassess him, he was a little more response and he was able to follow minimal commands. He has been on bipap since staff noted his oxygen dropped while sleeping. Pt came with hgb 5.9 on admission. He received 2 unit PRBC today. Repeat Hgb 7.[address] abd/pelvis showed no acute abnormalities, in particular no evidence of intra-abdominal hemorrhage in this patient with anemia. Gastro on board. Once his mental status improves and he is more awake, GI will plan to arrange for EGD/colonoscopy. Will start on IV PPI. Will continue to trend PPI. Keep NPO for now and continue to trend H&H. Hypoxia episodes while sleeping mostly due to obesity hypoventilation syndrome. POC ABG showed pH 7.38/ pCO2 57/ pO2 134 and pHCO3 34, chronic compensated hypercapnic respiratory failure based on ABG.case discussed with Pulmonology that recommended to continue Bipap at night and when sleeping. Elevated troponin possible related to hypoxia, Elevated creatinine and Anemia. Troponin is trending down. EKG showed no acute ischemic changes. Pt denies any chest pain. Will get resting echocardiogram. Elevated creatinine might be related to hypovolemia/ low hgb. Creatinine increased to 2.79. CT abd/pelvis showed bilateral kidneys are with intermediate density lesions likely representing hemorrhagic/proteinaceous cysts. Continue gentle IVF. Will get renal u/s. Will consult nephrology. Will avoid nephrotoxic agents. Continue monitor BMP. Will monitor closely in PCU. MD Rosey
[2022-08-29] MEDS: PANTOprazole 40 MG in SYRINGE 0 ML IV SCH (23:37)
[2022-08-29] MEDS: SODIUM CHLORIDE 0.9% 1000ML 1,000 ML IV SCH (23:44)
[2022-08-30] MEDS: METOPROLOL TARTRATE 1 MG/ML VIAL IV SCH ×4 (00:28→18:24)
[2022-08-30 03:01] LABS: Hematocrit (blood only) 22.5 % (40.1-51.0); Hemoglobin 7.2 g/dl (14.0-18.0)
[2022-08-30 03:09] LABS: Appearance Urine Clear (Clear); Bilirubin Urine Negative (Negative); Blood Urine Negative (Negative); Color Urine Yellow; Glucose Urine UA Negative (Negative); Ketones Urine Trace (Negative); Leukocyte Esterase Urine Negative (Negative); Nitrite Urine Negative (Negative); Protein Urine Negative (Negative); Specific Gravity Urine 1.014 (1.000-1.030); Urobilinogen Urine Negative (Negative)
[2022-08-30] MEDS ORDERED: SODIUM CHLORIDE 0.9% 250 ML IV PRN ×3 (03:10→21:06)
[2022-08-30 03:35] LABS: Amphetamines+Metham, Urine Neg (Neg); Barbiturates, Urine Neg (Neg); Benzodiazepine, Urine Neg (Neg); Cocaine, Urine Neg (Neg); MDMA (Ecstacy), Urine Neg (Neg); Methadone, Urine Neg (Neg); Opiate, Urine Neg (Neg); Phencyclidine, Urine Neg (Neg)
[2022-08-30] MEDS: ACETAMINOPHEN 325 MG TAB PO PRN (04:27)
--- NOTE | 2022-08-30 06:58 | Ultrasound Report ---
US renal/blad retro comp HISTORY: 56 years-old Male r/o renal mass, Elevate creatinine acute renal failure COMPARISON: CT abdomen and pelvis 08/29/2022 TECHNIQUE: Multiple real-time sonographic images of the kidneys and urinary bladder were obtained ass essing grayscale appearance and color flow. FINDINGS: The right kidney measures 12.5 x 6.3 x 5.8 cm and demonstrates diffuse cortical thinning with decreas ed corticomedullary differentiation. No solid renal mass lesions, hydronephrosis or renal calculi wit hin the right kidney identified. Mildly complex exophytic cyst of the inferior pole right kidney, 5.6 x 4.9 x 5.1 cm. A few additional smaller cysts of the right kidney are also noted. The left kidney measures 12.2 x 5.0 x 6.0 cm and demonstrates diffuse cortical thinning with decrease d corticomedullary differentiation. No solid renal mass lesions, hydronephrosis or renal calculi calc slick within the left kidney identified. A renal sinus cysts of the left kidney is mildly complex measu ring 3.7 x 2.2 x 3.3 cm. Additional smaller cysts are also noted. Decompressed urinary bladder with Starks catheter is not well visualized. IMPRESSION: 1. No renal calculi, hydronephrosis or solid renal mass lesions identified by ultrasound. Please note however that the study is limited secondary to patient body habitus. 2. Bilateral simple and complex renal cysts. 3. Bilateral diffuse cortical thinning with decreased corticomedullary differentiation compatible wit h chronic medical renal disease. ACT 112: Negative or not required by law. The above report was generated using voice recognition software. It may contain grammatical, syntax o r spelling errors. Electronically signed by: Mayito Garza M.D. 08/30/2022 6:56 AM
[2022-08-30 07:11] LABS: Base Excess ABG -0.2 mEq/L (-9-1.8); HCO3 ABG 25 mmol/L (19-24); PCO2 ABG 44 mmHg (35-46); PO2 ABG 137 mmHg (80-95); pH ABG 7.37 (7.35-7.45)
[2022-08-30 07:14] LABS: Allen Test Pos (Pos)
[2022-08-30] MEDS ORDERED: PERFLUTREN LIPID MICROSPHERE (DEFINITY) IV ONE (07:24)
--- NOTE | 2022-08-30 07:33 | Hospitalist Progress Note ---
Date of Service August 30, 2022 Assessment & Plan (1) Encephalopathy: Plan: Multifactorial : Respiratory failure, possible OHS, untreated RUTH (patient still has to go for a sleep study as per .) Acute on chronic anemia secondary to L GIB rule out C. difficile ARF on CKD Rule out UTI, possible sepsis Troponin elevation secondary to illness Encephalopathy resolved Continues to use suppl. O2 via NC Needs to use bipap given OHS, RUTH Pulmonary consult Re: Respiratory failure, probable RUTH, appreciate their input UA ordered blood cultx - pending Anemia/ GI bleed FOBT pending Pt reports blood in stool stool studies, c. diff pending Received 3 units of pRBC thus far Anemia work-up, transfuse PRBC to maintain hemoglobin greater than 7 and or for symptomatic anemia IV PPI GI consulted - plan for endoscopy CHERYL Starks catheter now, baseline UA, monitor creatinine response to IVF CT abd/ pelvis - abnormal imaging of kidneys Renal ultrasound ordered, nephrology consulted Of note patient reports having CHERYL and being hospitalized for it in [place] Elavated troponin -secondary to illness above, no chest pain Echo ordered Hyperglycemia -likely prediabetes, hemoglobin A1c of 5.31 July 2022 as per outpatient records - monitor blood sugar while inpt Ongoing tobacco abuse - counseling Nicotine patch Hypertension, stable Hyperlipidemia, statin noncompliance morbid obesity hx gout/rheumatoid arthritis chronic back pain medication noncompliance as per records DVT prophylaxis. SCDs Re: GI bleed Full code Mrs. Rima Bowie - contact # [phone]. Admission and Anticipated Discharge Date Admission Date: August 29, 2022 Subjective Pt seen in follow up of anemia, GI bleed, resp. failure Pt w/ morbid obesity, obesity hypovent. syndrome required bipap, now on NC awake and able to answer questions appropriately He reports discomfort with Starks catheter Otherwise denies abdominal pain Currently denies fevers chills Says he saw blood in his stool at home Also reports history of CHERYL when he was in the hospital in [place] Asked me to help him dial his father's number on his cell phone, and I helped him with that Review of Systems Review of Systems: All systems reviewed & are unremarkable except as noted in Subjective Physical Exam Physical Exam: Constitutional: Morbidly obese M in NAD, on NC Eyes: EOMI, PERRL. Conjunctivae are normal. Anicteric sclera. Neck: thick short neck Respiratory: No use of accessory muscles.Minimal crackles, no wheezing Cardiovascular: Regular rate and rhythm. No murmurs. No edema. Gastrointestinal: Normal bowel sounds, soft, obese nontender and nondistended. : Starks catheter placed Musculoskeletal: Moves all extremities. Skin: No rashes, warm dry and intact. Neurologic: Speech fluent. Follows commands. Answers appropriately. Results & Data Results & Data ([facility]) Vital Signs (Past 12 Hours) Vital Signs Temp Pulse Pulse Resp BP BP Pulse Ox 08/30/22 06:58 92 H 08/30/22 06:50 92 H 24 100 08/30/22 06:47 93 H 19 100 08/30/22 06:40 90 26 H 100 08/30/22 06:38 125/75 08/30/22 06:38 90 29 H 69 L 08/30/22 06:37 92 H 27 H 100 08/30/22 06:37 151/107 H 08/30/22 06:32 92 H 31 H 87 L 08/30/22 06:27 92 H 25 H 100 08/30/22 06:27 138/75 08/30/22 06:25 142/102 H 08/30/22 06:25 92 H 21 95 08/30/22 06:20 102 H 20 98 08/30/22 06:16 143/86 H 08/30/22 06:16 88 19 08/30/22 06:10 92 H 20 98 08/30/22 06:07 90 27 H 98 08/30/22 06:07 130/79 08/30/22 06:00 95 H 26 H 97 08/30/22 05:50 89 19 96 08/30/22 05:45 93 H 20 98 08/30/22 05:45 99/59 L 08/30/22 05:40 98 H 33 H 100 08/30/22 05:30 93 H 27 H 98 08/30/22 05:30 126/82 08/30/22 05:20 93 H 27 H 100 08/30/22 05:15 93 H 27 H 99 08/30/22 05:15 141/79 H 08/30/22 05:10 95 H 27 H 100 08/30/22 05:05 100 H 24 100 08/30/22 05:05 142/89 H 08/30/22 05:00 98 H 29 H 100 08/30/22 05:00 119/78 08/30/22 04:50 93 H 28 H 99 08/30/22 04:45 94 H 29 H 97 08/30/22 04:45 137/82 08/30/22 04:40 92 H 27 H 100 08/30/22 04:35 119/83 08/30/22 04:35 95 H 28 H 100 08/30/22 04:30 95 H 24 100 08/30/22 04:30 128/80 08/30/22 04:27 94 H 100 08/30/22 04:27 124/78 08/30/22 04:20 92 H 19 100 08/30/22 04:20 128/80 08/30/22 06:25 36.6 C 92 H 24 138/75 100 08/30/22 06:25 36.6 C 92 H 24 138/75 100 08/30/22 06:25 92 H 138/75 08/30/22 06:05 36.6 C 92 H 24 130/79 99 08/30/22 05:05 37.1 C 99 H 20 142/89 H 100 08/30/22 04:35 37.5 C 96 H 24 119/83 100 08/30/22 04:20 36.7 C 92 H 128/80 100 08/30/22 04:15 136/85 08/30/22 04:15 84 20 100 08/30/22 04:10 92 H 18 100 08/30/22 04:06 93 H 16 100 08/30/22 04:06 128/81 08/30/22 04:00 92 H 18 100 08/30/22 04:00 124/78 08/30/22 03:00 91 H 15 75 L 08/30/22 03:00 104/75 08/30/22 02:34 98 H 18 100 08/30/22 02:34 114/81 08/30/22 02:00 103 H 17 95 08/30/22 02:00 153/104 H 08/30/22 01:00 86 17 100 08/30/22 01:00 112/76 08/30/22 00:39 84 29 H 98 08/30/22 00:39 120/68 08/30/22 00:24 95 H 24 99 08/30/22 00:24 130/80 08/30/22 00:00 91 H 29 H 100 08/30/22 00:00 117/77 08/29/22 23:00 91 H 27 H 100 08/29/22 23:00 125/72 08/29/22 22:00 87 21 100 08/29/22 22:00 126/73 08/29/22 21:00 79 22 100 08/29/22 21:00 128/71 08/29/22 20:07 137/83 08/29/22 20:07 83 27 H 100 08/29/22 20:00 75 27 H 100 08/30/22 04:05 37.2 C 95 H 22 128/81 100 08/30/22 03:35 93 H 25 H 100 08/30/22 00:00 82 08/30/22 00:00 08/30/22 03:29 38 C H 90 22 114/81 99 08/30/22 01:02 86 22 112/76 100 08/30/22 00:40 85 120/68 08/30/22 00:28 92 H 130/80 08/30/22 00:25 93 H 20 130/80 100 08/29/22 20:00 08/29/22 22:46 92 H 27 H 99 08/29/22 23:03 36.5 C 24 126/73 99 O2 Del Method FiO2 08/30/22 06:58 08/30/22 06:50 08/30/22 06:47 08/30/22 06:40 08/30/22 06:38 08/30/22 06:38 08/30/22 06:37 08/30/22 06:37 08/30/22 06:32 08/30/22 06:27 08/30/22 06:27 08/30/22 06:25 08/30/22 06:25 08/30/22 06:20 08/30/22 06:16 08/30/22 06:16 08/30/22 06:10 08/30/22 06:07 08/30/22 06:07 08/30/22 06:00 08/30/22 05:50 08/30/22 05:45 08/30/22 05:45 08/30/22 05:40 08/30/22 05:30 08/30/22 05:30 08/30/22 05:20 08/30/22 05:15 08/30/22 05:15 08/30/22 05:10 08/30/22 05:05 08/30/22 05:05 08/30/22 05:00 08/30/22 05:00 08/30/22 04:50 08/30/22 04:45 08/30/22 04:45 08/30/22 04:40 08/30/22 04:35 08/30/22 04:35 08/30/22 04:30 08/30/22 04:30 08/30/22 04:27 08/30/22 04:27 08/30/22 04:20 08/30/22 04:20 08/30/22 06:25 08/30/22 06:25 BiPAP 08/30/22 06:25 08/30/22 06:05 08/30/22 05:05 08/30/22 04:35 08/30/22 04:20 08/30/22 04:15 08/30/22 04:15 08/30/22 04:10 08/30/22 04:06 08/30/22 04:06 08/30/22 04:00 08/30/22 04:00 08/30/22 03:00 08/30/22 03:00 08/30/22 02:34 08/30/22 02:34 08/30/22 02:00 08/30/22 02:00 08/30/22 01:00 08/30/22 01:00 08/30/22 00:39 08/30/22 00:39 08/30/22 00:24 08/30/22 00:24 08/30/22 00:00 08/30/22 00:00 08/29/22 23:00 08/29/22 23:00 08/29/22 22:00 08/29/22 22:00 08/29/22 21:00 08/29/22 21:00 08/29/22 20:07 08/29/22 20:07 08/29/22 20:00 08/30/22 04:05 08/30/22 03:35 30 08/30/22 00:00 08/30/22 00:00 BiPAP 08/30/22 03:29 BiPAP 08/30/22 01:02 BiPAP 08/30/22 00:40 08/30/22 00:28 08/30/22 00:25 BiPAP 08/29/22 20:00 BiPAP 0.30 08/29/22 22:46 30 08/29/22 23:03 BiPAP Laboratory Results 08/30/22 08/30/22 08/30/22 Range/Units 08:04 08:04 06:57 WBC 17.56 H (4.8-10.8) K/ul RBC 2.86 L (4.63-6.08) M/uL Hgb 8.4 L (14.0-18.0) g/dl POC Hgb Hct 26.8 L (40.1-51.0) % POC Hct (42-52) % MCV 93.7 D (80.0-100.0) fL MCH 29.4 (25.0-34.0) pg MCHC 31.3 L (32.0-36.0) g/dL RDW Std Deviation 55.8 H (36.4-46.3) fL RDW Coeff of Cheryl 16.2 H (11.5-14.5) % Plt Count 220 (130-400) K/uL MPV 10.5 (9.4-12.4) fL Immature Gran % (Auto) 0.7 % Neut % (Auto) 78.5 % Lymph % (Auto) 8.2 % [place] % (Auto) 11.4 % Eos % (Auto) 1.0 % Baso % (Auto) 0.2 % Neut # (Auto) 13.79 H (1.4-6.5) K/uL Lymph # (Auto) 1.44 (1.2-3.4) K/uL [place] # (Auto) 2.00 H (0.24-0.82) K/uL Eos # (Auto) 0.17 (0-0.50) K/uL Baso # (Auto) 0.04 (0-0.2) K/uL Immature Gran # (Auto) 0.12 H (0.00-0.02) K/uL Absolute Nucleated RBC 0.13 H (0-0) K/uL Nucleated RBC % (auto) 0.7 % POC pH (7.35-7.45) POC pCO2 (35-46) mmHg POC pO2 (80-95) mmHg POC HCO3 (19-24) derek/L POC Total CO2 (24-31) mmol/L POC Base Excess (-9-1.8) derek/L ABG pH 7.37 (7.35-7.45) ABG pCO2 44 (35-46) mmHg ABG pO2 137 H (80-95) mmHg ABG HCO3 25 H (19-24) mmol/L POC ABG O2 Sat (90-95) % ABG O2 Saturation 99.0 H (90-95) % ABG Base Excess -0.2 (-9-1.8) mEq/L Galen Test Pos (Pos) Oxygen Given 4L POC Sodium (135-144) mmol/L Sodium 138 (136-145) mmol/L POC Potassium (3.3-5.0) mmol/L Potassium 5.4 H (3.5-5.1) mmol/L Chloride 105 (98-107) mmol/L Carbon Dioxide 26 (21-32) mmol/L Anion Gap 7 (3-11) BUN 54 H (6-23) mg/dl Creatinine 3.46 H D (0.6-1.4) mg/dl Est Cr Clr Drug Dosing 44.6 ml/min Est GFR ( Amer) 21.6 ml/min Est GFR (Non-Af Amer) 18.7 ml/min BUN/Creatinine Ratio 15.6 (10-20) Glucose 106 H (70-99(Fasting)) mg/dl POC Glucose (70-99) mg/dl Estimat Average Glucose mg/dl Hemoglobin A1c (4.5-5.6) % Calcium 8.6 (8.5-10.1) mg/dl Phosphorus 4.7 (2.5-4.9) mg/dl Magnesium 2.0 (1.7-2.4) mg/dl Troponin I High Sens (0-20) pg/ml Urine Color Urine Appearance (Clear) Urine pH (4.5-7.5) Ur Specific [place] (1.000-1.030) Urine Protein (Negative) Urine Glucose (UA) (Negative) Urine Ketones (Negative) Urine Blood (Negative) Urine Nitrite (Negative) Urine Bilirubin (Negative) Urine Urobilinogen (Negative) Ur Leukocyte Esterase (Negative) Urine Opiates Screen (Neg) Ur Methadone, Qual (Neg) Urine Barbiturates (Neg) Ur Phencyclidine (PCP) (Neg) U Amphetamin/Meth Scrn (Neg) MDMA (Ecstasy) Screen (Neg) U Benzodiazepines Scrn (Neg) Ur Cocaine Metabolite (Neg) U Marijuana (THC) Screen (Neg) Blood Type Antibody Screen Crossmatch 08/30/22 08/30/22 08/30/22 Range/Units 06:17 03:00 03:00 WBC (4.8-10.8) K/ul RBC (4.63-6.08) M/uL Hgb (14.0-18.0) g/dl POC Hgb Hct (40.1-51.0) % POC Hct (42-52) % MCV (80.0-100.0) fL MCH (25.0-34.0) pg MCHC (32.0-36.0) g/dL RDW Std Deviation (36.4-46.3) fL RDW Coeff of Cheryl (11.5-14.5) % Plt Count (130-400) K/uL MPV (9.4-12.4) fL Immature Gran % (Auto) % Neut % (Auto) % Lymph % (Auto) % [place] % (Auto) % Eos % (Auto) % Baso % (Auto) % Neut # (Auto) (1.4-6.5) K/uL Lymph # (Auto) (1.2-3.4) K/uL [place] # (Auto) (0.24-0.82) K/uL Eos # (Auto) (0-0.50) K/uL Baso # (Auto) (0-0.2) K/uL Immature Gran # (Auto) (0.00-0.02) K/uL Absolute Nucleated RBC (0-0) K/uL Nucleated RBC % (auto) % POC pH (7.35-7.45) POC pCO2 (35-46) mmHg POC pO2 (80-95) mmHg POC HCO3 (19-24) derek/L POC Total CO2 (24-31) mmol/L POC Base Excess (-9-1.8) derek/L ABG pH (7.35-7.45) ABG pCO2 (35-46) mmHg ABG pO2 (80-95) mmHg ABG HCO3 (19-24) mmol/L POC ABG O2 Sat (90-95) % ABG O2 Saturation (90-95) % ABG Base Excess (-9-1.8) mEq/L Galen Test (Pos) Oxygen Given POC Sodium (135-144) mmol/L Sodium (136-145) mmol/L POC Potassium (3.3-5.0) mmol/L Potassium (3.5-5.1) mmol/L Chloride (98-107) mmol/L Carbon Dioxide (21-32) mmol/L Anion Gap (3-11) BUN (6-23) mg/dl Creatinine (0.6-1.4) mg/dl Est Cr Clr Drug Dosing ml/min Est GFR ( Amer) ml/min Est GFR (Non-Af Amer) ml/min BUN/Creatinine Ratio (10-20) Glucose (70-99(Fasting)) mg/dl POC Glucose 134 H (70-99) mg/dl Estimat Average Glucose mg/dl Hemoglobin A1c (4.5-5.6) % Calcium (8.5-10.1) mg/dl Phosphorus (2.5-4.9) mg/dl Magnesium (1.7-2.4) mg/dl Troponin I High Sens (0-20) pg/ml Urine Color Yellow Urine Appearance Clear (Clear) Urine pH 5.0 (4.5-7.5) Ur Specific [place] 1.014 (1.000-1.030) Urine Protein Negative (Negative) Urine Glucose (UA) Negative (Negative) Urine Ketones Trace H (Negative) Urine Blood Negative (Negative) Urine Nitrite Negative (Negative) Urine Bilirubin Negative (Negative) Urine Urobilinogen Negative (Negative) Ur Leukocyte Esterase Negative (Negative) Urine Opiates Screen Neg (Neg) Ur Methadone, Qual Neg (Neg) Urine Barbiturates Neg (Neg) Ur Phencyclidine (PCP) Neg (Neg) U Amphetamin/Meth Scrn Neg (Neg) MDMA (Ecstasy) Screen Neg (Neg) U Benzodiazepines Scrn Neg (Neg) Ur Cocaine Metabolite Neg (Neg) U Marijuana (THC) Screen Neg (Neg) Blood Type Antibody Screen Crossmatch 08/30/22 08/30/22 08/30/22 Range/Units 01:38 00:25 00:05 WBC (4.8-10.8) K/ul RBC (4.63-6.08) M/uL Hgb 7.2 L Cancelled (14.0-18.0) g/dl POC Hgb Hct 22.5 L Cancelled (40.1-51.0) % POC Hct (42-52) % MCV (80.0-100.0) fL MCH (25.0-34.0) pg MCHC (32.0-36.0) g/dL RDW Std Deviation (36.4-46.3) fL RDW Coeff of Cheryl (11.5-14.5) % Plt Count (130-400) K/uL MPV (9.4-12.4) fL Immature Gran % (Auto) % Neut % (Auto) % Lymph % (Auto) % [place] % (Auto) % Eos % (Auto) % Baso % (Auto) % Neut # (Auto) (1.4-6.5) K/uL Lymph # (Auto) (1.2-3.4) K/uL [place] # (Auto) (0.24-0.82) K/uL Eos # (Auto) (0-0.50) K/uL Baso # (Auto) (0-0.2) K/uL Immature Gran # (Auto) (0.00-0.02) K/uL Absolute Nucleated RBC (0-0) K/uL Nucleated RBC % (auto) % POC pH (7.35-7.45) POC pCO2 (35-46) mmHg POC pO2 (80-95) mmHg POC HCO3 (19-24) derek/L POC Total CO2 (24-31) mmol/L POC Base Excess (-9-1.8) derek/L ABG pH (7.35-7.45) ABG pCO2 (35-46) mmHg ABG pO2 (80-95) mmHg ABG HCO3 (19-24) mmol/L POC ABG O2 Sat (90-95) % ABG O2 Saturation (90-95) % ABG Base Excess (-9-1.8) mEq/L Galen Test (Pos) Oxygen Given POC Sodium (135-144) mmol/L Sodium (136-145) mmol/L POC Potassium (3.3-5.0) mmol/L Potassium (3.5-5.1) mmol/L Chloride (98-107) mmol/L Carbon Dioxide (21-32) mmol/L Anion Gap (3-11) BUN (6-23) mg/dl Creatinine (0.6-1.4) mg/dl Est Cr Clr Drug Dosing ml/min Est GFR ( Amer) ml/min Est GFR (Non-Af Amer) ml/min BUN/Creatinine Ratio (10-20) Glucose (70-99(Fasting)) mg/dl POC Glucose 130 H (70-99) mg/dl Estimat Average Glucose mg/dl Hemoglobin A1c (4.5-5.6) % Calcium (8.5-10.1) mg/dl Phosphorus (2.5-4.9) mg/dl Magnesium (1.7-2.4) mg/dl Troponin I High Sens (0-20) pg/ml Urine Color Urine Appearance (Clear) Urine pH (4.5-7.5) Ur Specific [place] (1.000-1.030) Urine Protein (Negative) Urine Glucose (UA) (Negative) Urine Ketones (Negative) Urine Blood (Negative) Urine Nitrite (Negative) Urine Bilirubin (Negative) Urine Urobilinogen (Negative) Ur Leukocyte Esterase (Negative) Urine Opiates Screen (Neg) Ur Methadone, Qual (Neg) Urine Barbiturates (Neg) Ur Phencyclidine (PCP) (Neg) U Amphetamin/Meth Scrn (Neg) MDMA (Ecstasy) Screen (Neg) U Benzodiazepines Scrn (Neg) Ur Cocaine Metabolite (Neg) U Marijuana (THC) Screen (Neg) Blood Type Antibody Screen Crossmatch 08/29/22 08/29/22 08/29/22 Range/Units 18:20 15:50 15:50 WBC (4.8-10.8) K/ul RBC (4.63-6.08) M/uL Hgb 7.9 L (14.0-18.0) g/dl POC Hgb Hct 25.1 L (40.1-51.0) % POC Hct (42-52) % MCV (80.0-100.0) fL MCH (25.0-34.0) pg MCHC (32.0-36.0) g/dL RDW Std Deviation (36.4-46.3) fL RDW Coeff of Cheryl (11.5-14.5) % Plt Count (130-400) K/uL MPV (9.4-12.4) fL Immature Gran % (Auto) % Neut % (Auto) % Lymph % (Auto) % [place] % (Auto) % Eos % (Auto) % Baso % (Auto) % Neut # (Auto) (1.4-6.5) K/uL Lymph # (Auto) (1.2-3.4) K/uL [place] # (Auto) (0.24-0.82) K/uL Eos # (Auto) (0-0.50) K/uL Baso # (Auto) (0-0.2) K/uL Immature Gran # (Auto) (0.00-0.02) K/uL Absolute Nucleated RBC (0-0) K/uL Nucleated RBC % (auto) % POC pH (7.35-7.45) POC pCO2 (35-46) mmHg POC pO2 (80-95) mmHg POC HCO3 (19-24) derek/L POC Total CO2 (24-31) mmol/L POC Base Excess (-9-1.8) derek/L ABG pH (7.35-7.45) ABG pCO2 (35-46) mmHg ABG pO2 (80-95) mmHg ABG HCO3 (19-24) mmol/L POC ABG O2 Sat (90-95) % ABG O2 Saturation (90-95) % ABG Base Excess (-9-1.8) mEq/L Galen Test (Pos) Oxygen Given POC Sodium (135-144) mmol/L Sodium 140 (136-145) mmol/L POC Potassium (3.3-5.0) mmol/L Potassium 5.0 (3.5-5.1) mmol/L Chloride 106 (98-107) mmol/L Carbon Dioxide 29 (21-32) mmol/L Anion Gap 5 (3-11) BUN 49 H (6-23) mg/dl Creatinine 2.79 H D (0.6-1.4) mg/dl Est Cr Clr Drug Dosing 55.3 ml/min Est GFR ( Amer) 28.1 ml/min Est GFR (Non-Af Amer) 24.2 ml/min BUN/Creatinine Ratio 17.6 (10-20) Glucose 95 (70-99(Fasting)) mg/dl POC Glucose 117 H (70-99) mg/dl Estimat Average Glucose mg/dl Hemoglobin A1c (4.5-5.6) % Calcium 8.6 (8.5-10.1) mg/dl Phosphorus (2.5-4.9) mg/dl Magnesium (1.7-2.4) mg/dl Troponin I High Sens 326.5 H* D (0-20) pg/ml Urine Color Urine Appearance (Clear) Urine pH (4.5-7.5) Ur Specific [place] (1.000-1.030) Urine Protein (Negative) Urine Glucose (UA) (Negative) Urine Ketones (Negative) Urine Blood (Negative) Urine Nitrite (Negative) Urine Bilirubin (Negative) Urine Urobilinogen (Negative) Ur Leukocyte Esterase (Negative) Urine Opiates Screen (Neg) Ur Methadone, Qual (Neg) Urine Barbiturates (Neg) Ur Phencyclidine (PCP) (Neg) U Amphetamin/Meth Scrn (Neg) MDMA (Ecstasy) Screen (Neg) U Benzodiazepines Scrn (Neg) Ur Cocaine Metabolite (Neg) U Marijuana (THC) Screen (Neg) Blood Type Antibody Screen Crossmatch 08/29/22 08/29/22 08/29/22 Range/Units 15:37 07:18 03:02 WBC (4.8-10.8) K/ul RBC (4.63-6.08) M/uL Hgb (14.0-18.0) g/dl POC Hgb TNP Hct (40.1-51.0) % POC Hct < 15 L* (42-52) % MCV (80.0-100.0) fL MCH (25.0-34.0) pg MCHC (32.0-36.0) g/dL RDW Std Deviation (36.4-46.3) fL RDW Coeff of Chreyl (11.5-14.5) % Plt Count (130-400) K/uL MPV (9.4-12.4) fL Immature Gran % (Auto) % Neut % (Auto) % Lymph % (Auto) % [place] % (Auto) % Eos % (Auto) % Baso % (Auto) % Neut # (Auto) (1.4-6.5) K/uL Lymph # (Auto) (1.2-3.4) K/uL [place] # (Auto) (0.24-0.82) K/uL Eos # (Auto) (0-0.50) K/uL Baso # (Auto) (0-0.2) K/uL Immature Gran # (Auto) (0.00-0.02) K/uL Absolute Nucleated RBC (0-0) K/uL Nucleated RBC % (auto) % POC pH 7.38 (7.35-7.45) POC pCO2 57 H (35-46) mmHg POC pO2 134 H (80-95) mmHg POC HCO3 34 H (19-24) derek/L POC Total CO2 35 H (24-31) mmol/L POC Base Excess 8.0 H (-9-1.8) derek/L ABG pH (7.35-7.45) ABG pCO2 (35-46) mmHg ABG pO2 (80-95) mmHg ABG HCO3 (19-24) mmol/L POC ABG O2 Sat 99.0 H (90-95) % ABG O2 Saturation (90-95) % ABG Base Excess (-9-1.8) mEq/L Galen Test (Pos) Oxygen Given POC Sodium 138 (135-144) mmol/L Sodium (136-145) mmol/L POC Potassium 5.9 H (3.3-5.0) mmol/L Potassium (3.5-5.1) mmol/L Chloride (98-107) mmol/L Carbon Dioxide (21-32) mmol/L Anion Gap (3-11) BUN (6-23) mg/dl Creatinine (0.6-1.4) mg/dl Est Cr Clr Drug Dosing ml/min Est GFR ( Amer) ml/min Est GFR (Non-Af Amer) ml/min BUN/Creatinine Ratio (10-20) Glucose (70-99(Fasting)) mg/dl POC Glucose (70-99) mg/dl Estimat Average Glucose 114 mg/dl Hemoglobin A1c 5.6 (4.5-5.6) % Calcium (8.5-10.1) mg/dl Phosphorus (2.5-4.9) mg/dl Magnesium (1.7-2.4) mg/dl Troponin I High Sens (0-20) pg/ml Urine Color Urine Appearance (Clear) Urine pH (4.5-7.5) Ur Specific [place] (1.000-1.030) Urine Protein (Negative) Urine Glucose (UA) (Negative) Urine Ketones (Negative) Urine Blood (Negative) Urine Nitrite (Negative) Urine Bilirubin (Negative) Urine Urobilinogen (Negative) Ur Leukocyte Esterase (Negative) Urine Opiates Screen (Neg) Ur Methadone, Qual (Neg) Urine Barbiturates (Neg) Ur Phencyclidine (PCP) (Neg) U Amphetamin/Meth Scrn (Neg) MDMA (Ecstasy) Screen (Neg) U Benzodiazepines Scrn (Neg) Ur Cocaine Metabolite (Neg) U Marijuana (THC) Screen (Neg) Blood Type O Negative Antibody Screen NEGATIVE Crossmatch See Detail Medications Administered Current Inpatient Medications Acetaminophen (Acetaminophen 325 Mg Tab) 650 mg PO Q4H PRN PRN Reason: Pain or Fever Stop: 09/28/22 07:58 Last Admin: 08/30/22 04:27 Dose: 650 mg Sodium Chloride (Nss 1000ml) 1,000 mls @ 100 mls/hr IV .Q10H [facility] Stop: 09/28/22 22:29 Last Infusion: 08/30/22 07:54 Dose: 100 mls/hr Pantoprazole Sodium 40 mg/ (Syringe) 10 mls @ 5 mls/min IV BID [facility] Stop: 09/28/22 22:29 Last Admin: 08/29/22 23:37 Dose: 5 mls/min Sodium Chloride (Nss) 250 mls @ 15 mls/hr IV .[id number] PRN PRN Reason: For Transfusion Duration Stop: 08/30/22 13:10 Last Admin: 08/30/22 04:05 Dose: 15 mls/hr Sodium Chloride (Nss) 250 mls @ 15 mls/hr IV .[id number] PRN PRN Reason: For Transfusion Duration Stop: 08/30/22 17:02 Cefepime HCl 2,000 mg/ Syringe 20 mls @ 5 mls/min IV Q12H [facility]; Protocol Stop: 09/01/22 09:44 Metoprolol Tartrate (Metoprolol Tartrate 1 Mg/Ml Vial) 2.5 mg IV Q6H [facility] Stop: 09/28/22 11:59 Last Admin: 08/30/22 06:25 Dose: 2.5 mg Sodium Zirconium Cyclosilicate (Sodium Zirconium Cyclosilicate 10 Gm Packet) 10 gm PO TID [facility] Stop: 09/01/22 09:01 Verapamil HCl (Verapamil Hcl 240 Mg Tabcr) 240 mg PO QAM [facility] Stop: 09/28/22 08:59 Last Admin: 08/29/22 12:34 Dose: Not Given
[2022-08-30 08:32] LABS: Basophils # (auto) 0.04 K/uL (0-0.2); Basophils % (auto) 0.2 %; Eosinophils # (auto) 0.17 K/uL (0-0.50); Hematocrit (blood only) 26.8 % (40.1-51.0); Hemoglobin 8.4 g/dl (14.0-18.0); Immature Granulocytes # (auto) 0.12 K/uL (0.00-0.02); Immature Granulocytes % (auto) 0.7 %; Lymphocytes # (auto) 1.44 K/uL (1.2-3.4); Lymphocytes % (auto) 8.2 %; Mean Corpuscular Hemoglobin 29.4 pg (25.0-34.0); Mean Corpuscular Hgb Conc 31.3 g/dL (32.0-36.0); Mean Corpuscular Volume 93.7 fL (80.0-100.0); Mean Platelet Volume 10.5 fL (9.4-12.4); Monocytes % (auto) 11.4 %; Neutrophils # (auto) 13.79 K/uL (1.4-6.5); Neutrophils % (auto) 78.5 %; Nucleated RBC # (auto) 0.13 K/uL (0-0); Nucleated RBC % (auto) 0.7 %; Platelet Count 220 K/uL (130-400); RDW Coefficient of Variation 16.2 % (11.5-14.5); RDW Standard Deviation 55.8 fL (36.4-46.3); Red Blood Count 2.86 M/uL (4.63-6.08); White Blood Count 17.56 K/ul (4.8-10.8)
[2022-08-30 08:57] LABS: BUN Creatinine Ratio 15.6 (10-20); Calcium 8.6 mg/dl (8.5-10.1); Creatinine Clr Calc Pharmacy 44.6 ml/min; Est GFR (African American) 21.6 ml/min; Est GFR (Non-African American) 18.7 ml/min; Phosphorus 4.7 mg/dl (2.5-4.9); Potassium 5.4 mmol/L (3.5-5.1)
[2022-08-30] MEDS: PANTOprazole 40 MG in SYRINGE 0 ML IV SCH ×2 (09:42→20:43)
[2022-08-30] MEDS: VERAPAMIL HCL 240 MG TABCR PO SCH (09:42)
[2022-08-30] MEDS ORDERED: Nursing to Pharmacy Communication SCH (10:00)
[2022-08-30] MEDS ORDERED: HYDROCORTISONE SOD 100 MG in SYRINGE 0 ML IV ONE (11:00)
[2022-08-30] MEDS: SODIUM ZIRCONIUM CYCLOSILICATE 10 GM PACKET PO SCH ×2 (11:21→18:24)
[2022-08-30] MEDS: CEFEPIME 2,000 MG in SYRINGE 0 ML IV SCH ×2 (11:21→20:43)
[2022-08-30] MEDS: SODIUM CHLORIDE 0.9% 1000ML 1,000 ML IV SCH (11:24)
--- NOTE | 2022-08-30 11:25 | Gastroenterology Progress Note ---
Date of Service August 30, 2022 Assessment & Plan (1) Rectal bleed: (2) Severe anemia: (3) Encephalopathy: Plan Pt is a 56-year-old male with history of morbid obesity, RUTH, CKD, who is admitted with weakness, reported nausea vomiting and rectal bleeding, found to be severely anemic (acute on chronic) with a hemoglobin of 5.9, with elevated troponin, and with respiratory failure requiring BiPAP. HGB has responded appropriately after 2 units of PRBC. CHERYL, elevated K and WBC noted. CTAP noncontributory. Recent hx of prednisone use (though dose not clear) and past NSAID use; also smokes and [facility]; all risk factors for PUD. No further GIB; he is HD stable. - I touched base with hospitalist re: prednisone use; may need stress dose if the has indeed been on this chronically. - To evaluate for GIB will Plan EGD/colonoscopy tomorrow - Clear liquid diet today - NPO afer midnight - Start prep with GOlytely at 1800 today - Transfusion PRN, trend H&H - Please monitor and document GI output - Nephrology consulted for CHERYL - Please correct electrolytes, they will need to be in range for anesthesia - Test for C diff if he has diarrhea - Supportive care with IVF - Continue PPI BID to cover for UGI source Thank you for allowing us to participate in the care of this patient. Please call with any acute changes, questions or concerns. Please see addendum below with additional recommendation from my supervising physician. Admission and Anticipated Discharge Date Admission Date: August 29, 2022 Supervising Physician Co-Signing Physician Notes I performed a history and physical examination of the patient today, including specifically on physical exam - soft abdomen. I have discussed the patient's management with the advanced practitioner. Please refer to the nurse practitioner's note for the documented findings and plan of care. E/C tomorrow. Subjective Patient seen and examined, chart reviewed. Pt now awake and talking; AAOx 3. He reports 2 large episodes of diarrhea prior to arrival - one was brown/bloody and the other was dark black (he reports taking PeptoBismol between the first and second). He also reports having nausea/vomiting x 1 prior to coming to the hospital as well. Otherwise denies specific complaints; had been eating well and feeling well otherwise (no recent illnesses, fever, chills, CP, SOB, abd pain, decreased appetite, heartburn, trouble swallowing, diarrhea, etc). He states one other time in his 20's he had an episode of bloody stool; did not go get evaluated for this and it had not recurred until now. Currently complaining of pain with his crenshaw catheter and weakness in his arms which he states is from atrophy. No further GI output this AM. Denies abd pain, CP, SOB, cough, n/v. Today HGB stable but Creatinine and K are elevated; elevated WBC; BCx pending. Mother of colon CA. Pt has never had EGD or colonoscopy. He smokes cigarettes and denies ETOH use. He tells me he has been taking prednisone 30 mg daily for a while for his RA. On review of his [facility] chart he was rx'd prednisone taper by his sealing machine operator on 08/08 (40 mg x 5 days, 30 mg x 5 days, etc). Previous to this he was taking daily NSAIDS (ibuprofen 800 mg) but was told to stop when he had kidney trouble. Thinks he also takes a baby ASA 81 mg. Review of Systems Review of Systems: All systems reviewed & are unremarkable except as noted in HPI & below Physical Exam Constitutional: WD/WN, vitals as above Chronically ill, morbidly obese Eyes: PERRL, conjunctivae normal, anicteric sclerae Respiratory: No resp distress; O2 via NC in place Cardiovascular: + tachycardic Gastrointestinal (Abdomen): normal bowel sounds, soft, nontender, nondistended Psychiatric: A+Ox3, euthymic affect Results & [facility] ([facility]) Vital Signs (Past 12 Hours) Vital Signs Temp Pulse Pulse Resp BP BP Pulse Ox 08/30/22 11:18 37.1 C 103 H 18 110/84 100 08/30/22 07:00 08/30/22 08:00 36.8 C 98 H 18 121/90 100 08/30/22 06:58 92 H 08/30/22 06:50 92 H 24 100 08/30/22 06:47 93 H 19 100 08/30/22 06:40 90 26 H 100 08/30/22 06:38 125/75 08/30/22 06:38 90 29 H 69 L 08/30/22 06:37 92 H 27 H 100 08/30/22 06:37 151/107 H 08/30/22 06:32 92 H 31 H 87 L 08/30/22 06:27 92 H 25 H 100 08/30/22 06:27 138/75 08/30/22 06:25 142/102 H 08/30/22 06:25 92 H 21 95 08/30/22 06:20 102 H 20 98 08/30/22 06:16 143/86 H 08/30/22 06:16 88 19 08/30/22 06:10 92 H 20 98 08/30/22 06:07 90 27 H 98 08/30/22 06:07 130/79 08/30/22 06:00 95 H 26 H 97 08/30/22 05:50 89 19 96 08/30/22 05:45 93 H 20 98 08/30/22 05:45 99/59 L 08/30/22 05:40 98 H 33 H 100 08/30/22 05:30 93 H 27 H 98 08/30/22 05:30 126/82 08/30/22 05:20 93 H 27 H 100 08/30/22 05:15 93 H 27 H 99 08/30/22 05:15 141/79 H 08/30/22 05:10 95 H 27 H 100 08/30/22 05:05 100 H 24 100 08/30/22 05:05 142/89 H 08/30/22 05:00 98 H 29 H 100 08/30/22 05:00 119/78 08/30/22 04:50 93 H 28 H 99 08/30/22 04:45 94 H 29 H 97 08/30/22 04:45 137/82 08/30/22 04:40 92 H 27 H 100 08/30/22 04:35 119/83 08/30/22 04:35 95 H 28 H 100 08/30/22 04:30 95 H 24 100 08/30/22 04:30 128/80 08/30/22 04:27 94 H 100 08/30/22 04:27 124/78 08/30/22 04:20 92 H 19 100 08/30/22 04:20 128/80 08/30/22 06:25 36.6 C 92 H 24 138/75 100 08/30/22 06:25 36.6 C 92 H 24 138/75 100 08/30/22 06:25 92 H 138/75 08/30/22 06:05 36.6 C 92 H 24 130/79 99 08/30/22 05:05 37.1 C 99 H 20 142/89 H 100 08/30/22 04:35 37.5 C 96 H 24 119/83 100 08/30/22 04:20 36.7 C 92 H 128/80 100 08/30/22 04:15 136/85 08/30/22 04:15 84 20 100 08/30/22 04:10 92 H 18 100 08/30/22 04:06 93 H 16 100 08/30/22 04:06 128/81 08/30/22 04:00 92 H 18 100 08/30/22 04:00 124/78 08/30/22 03:00 91 H 15 75 L 08/30/22 03:00 104/75 08/30/22 02:34 98 H 18 100 08/30/22 02:34 114/81 08/30/22 02:00 103 H 17 95 08/30/22 02:00 153/104 H 08/30/22 01:00 86 17 100 08/30/22 01:00 112/76 08/30/22 00:39 84 29 H 98 08/30/22 00:39 120/68 08/30/22 00:24 95 H 24 99 08/30/22 00:24 130/80 08/30/22 00:00 91 H 29 H 100 08/30/22 00:00 117/77 08/30/22 04:05 37.2 C 95 H 22 128/81 100 08/30/22 03:35 93 H 25 H 100 08/30/22 00:00 82 08/30/22 00:00 08/30/22 03:29 38 C H 90 22 114/81 99 08/30/22 01:02 86 22 112/76 100 08/30/22 00:40 85 120/68 08/30/22 00:28 92 H 130/80 08/30/22 00:25 93 H 20 130/80 100 O2 Del Method O2 Flow Rate FiO2 08/30/22 11:18 Nasal Cannula 2 08/30/22 07:00 Nasal Cannula 2 08/30/22 08:00 Nasal Cannula 2 08/30/22 06:58 08/30/22 06:50 08/30/22 06:47 08/30/22 06:40 08/30/22 06:38 08/30/22 06:38 08/30/22 06:37 08/30/22 06:37 08/30/22 06:32 08/30/22 06:27 08/30/22 06:27 08/30/22 06:25 08/30/22 06:25 08/30/22 06:20 08/30/22 06:16 08/30/22 06:16 08/30/22 06:10 08/30/22 06:07 08/30/22 06:07 08/30/22 06:00 08/30/22 05:50 08/30/22 05:45 08/30/22 05:45 08/30/22 05:40 08/30/22 05:30 08/30/22 05:30 08/30/22 05:20 08/30/22 05:15 08/30/22 05:15 08/30/22 05:10 08/30/22 05:05 08/30/22 05:05 08/30/22 05:00 08/30/22 05:00 08/30/22 04:50 08/30/22 04:45 08/30/22 04:45 08/30/22 04:40 08/30/22 04:35 08/30/22 04:35 08/30/22 04:30 08/30/22 04:30 08/30/22 04:27 08/30/22 04:27 08/30/22 04:20 08/30/22 04:20 08/30/22 06:25 08/30/22 06:25 BiPAP 08/30/22 06:25 08/30/22 06:05 08/30/22 05:05 08/30/22 04:35 08/30/22 04:20 08/30/22 04:15 08/30/22 04:15 08/30/22 04:10 08/30/22 04:06 08/30/22 04:06 08/30/22 04:00 08/30/22 04:00 08/30/22 03:00 08/30/22 03:00 08/30/22 02:34 08/30/22 02:34 08/30/22 02:00 08/30/22 02:00 08/30/22 01:00 08/30/22 01:00 08/30/22 00:39 08/30/22 00:39 08/30/22 00:24 08/30/22 00:24 08/30/22 00:00 08/30/22 00:00 08/30/22 04:05 08/30/22 03:35 30 08/30/22 00:00 08/30/22 00:00 BiPAP 08/30/22 03:29 BiPAP 08/30/22 01:02 BiPAP 08/30/22 00:40 08/30/22 00:28 08/30/22 00:25 BiPAP Laboratory Results 08/30/22 08/30/22 08/30/22 Range/Units 11:18 08:04 08:04 WBC 17.56 H (4.8-10.8) K/ul RBC 2.86 L (4.63-6.08) M/uL Hgb 8.4 L (14.0-18.0) g/dl POC Hgb Hct 26.8 L (40.1-51.0) % POC Hct (42-52) % MCV 93.7 D (80.0-100.0) fL MCH 29.4 (25.0-34.0) pg MCHC 31.3 L (32.0-36.0) g/dL RDW Std Deviation 55.8 H (36.4-46.3) fL RDW Coeff of Cheryl 16.2 H (11.5-14.5) % Plt Count 220 (130-400) K/uL MPV 10.5 (9.4-12.4) fL Immature Gran % (Auto) 0.7 % Neut % (Auto) 78.5 % Lymph % (Auto) 8.2 % Gilmer % (Auto) 11.4 % Eos % (Auto) 1.0 % Baso % (Auto) 0.2 % Neut # (Auto) 13.79 H (1.4-6.5) K/uL Lymph # (Auto) 1.44 (1.2-3.4) K/uL Gilmer # (Auto) 2.00 H (0.24-0.82) K/uL Eos # (Auto) 0.17 (0-0.50) K/uL Baso # (Auto) 0.04 (0-0.2) K/uL Immature Gran # (Auto) 0.12 H (0.00-0.02) K/uL Absolute Nucleated RBC 0.13 H (0-0) K/uL Nucleated RBC % (auto) 0.7 % POC pH (7.35-7.45) POC pCO2 (35-46) mmHg POC pO2 (80-95) mmHg POC HCO3 (19-24) derek/L POC Total CO2 (24-31) mmol/L POC Base Excess (-9-1.8) derek/L ABG pH (7.35-7.45) ABG pCO2 (35-46) mmHg ABG pO2 (80-95) mmHg ABG HCO3 (19-24) mmol/L POC ABG O2 Sat (90-95) % ABG O2 Saturation (90-95) % ABG Base Excess (-9-1.8) mEq/L Galen Test (Pos) Oxygen Given POC Sodium (135-144) mmol/L Sodium 138 (136-145) mmol/L POC Potassium (3.3-5.0) mmol/L Potassium 5.4 H (3.5-5.1) mmol/L Chloride 105 (98-107) mmol/L Carbon Dioxide 26 (21-32) mmol/L Anion Gap 7 (3-11) BUN 54 H (6-23) mg/dl Creatinine 3.46 H D (0.6-1.4) mg/dl Est Cr Clr Drug Dosing 44.6 ml/min Est GFR ( Amer) 21.6 ml/min Est GFR (Non-Af Amer) 18.7 ml/min BUN/Creatinine Ratio 15.6 (10-20) Glucose 106 H (70-99(Fasting)) mg/dl POC Glucose 116 H (70-99) mg/dl Calcium 8.6 (8.5-10.1) mg/dl Phosphorus 4.7 (2.5-4.9) mg/dl Magnesium 2.0 (1.7-2.4) mg/dl Troponin I High Sens (0-20) pg/ml Urine Color Urine Appearance (Clear) Urine pH (4.5-7.5) Ur Specific Beverly (1.000-1.030) Urine Protein (Negative) Urine Glucose (UA) (Negative) Urine Ketones (Negative) Urine Blood (Negative) Urine Nitrite (Negative) Urine Bilirubin (Negative) Urine Urobilinogen (Negative) Ur Leukocyte Esterase (Negative) Urine Opiates Screen (Neg) Ur Methadone, Qual (Neg) Urine Barbiturates (Neg) Ur Phencyclidine (PCP) (Neg) U Amphetamin/Meth Scrn (Neg) MDMA (Ecstasy) Screen (Neg) U Benzodiazepines Scrn (Neg) Ur Cocaine Metabolite (Neg) U Marijuana (THC) Screen (Neg) Blood Type Antibody Screen Crossmatch 08/30/22 08/30/22 08/30/22 Range/Units 06:57 06:17 03:00 WBC (4.8-10.8) K/ul RBC (4.63-6.08) M/uL Hgb (14.0-18.0) g/dl POC Hgb Hct (40.1-51.0) % POC Hct (42-52) % MCV (80.0-100.0) fL MCH (25.0-34.0) pg MCHC (32.0-36.0) g/dL RDW Std Deviation (36.4-46.3) fL RDW Coeff of Cheryl (11.5-14.5) % Plt Count (130-400) K/uL MPV (9.4-12.4) fL Immature Gran % (Auto) % Neut % (Auto) % Lymph % (Auto) % Gilmer % (Auto) % Eos % (Auto) % Baso % (Auto) % Neut # (Auto) (1.4-6.5) K/uL Lymph # (Auto) (1.2-3.4) K/uL Gilmer # (Auto) (0.24-0.82) K/uL Eos # (Auto) (0-0.50) K/uL Baso # (Auto) (0-0.2) K/uL Immature Gran # (Auto) (0.00-0.02) K/uL Absolute Nucleated RBC (0-0) K/uL Nucleated RBC % (auto) % POC pH (7.35-7.45) POC pCO2 (35-46) mmHg POC pO2 (80-95) mmHg POC HCO3 (19-24) derek/L POC Total CO2 (24-31) mmol/L POC Base Excess (-9-1.8) derek/L ABG pH 7.37 (7.35-7.45) ABG pCO2 44 (35-46) mmHg ABG pO2 137 H (80-95) mmHg ABG HCO3 25 H (19-24) mmol/L POC ABG O2 Sat (90-95) % ABG O2 Saturation 99.0 H (90-95) % ABG Base Excess -0.2 (-9-1.8) mEq/L Galen Test Pos (Pos) Oxygen Given 4L POC Sodium (135-144) mmol/L Sodium (136-145) mmol/L POC Potassium (3.3-5.0) mmol/L Potassium (3.5-5.1) mmol/L Chloride (98-107) mmol/L Carbon Dioxide (21-32) mmol/L Anion Gap (3-11) BUN (6-23) mg/dl Creatinine (0.6-1.4) mg/dl Est Cr Clr Drug Dosing ml/min Est GFR ( Amer) ml/min Est GFR (Non-Af Amer) ml/min BUN/Creatinine Ratio (10-20) Glucose (70-99(Fasting)) mg/dl POC Glucose 134 H (70-99) mg/dl Calcium (8.5-10.1) mg/dl Phosphorus (2.5-4.9) mg/dl Magnesium (1.7-2.4) mg/dl Troponin I High Sens (0-20) pg/ml Urine Color Yellow Urine Appearance Clear (Clear) Urine pH 5.0 (4.5-7.5) Ur Specific Beverly 1.014 (1.000-1.030) Urine Protein Negative (Negative) Urine Glucose (UA) Negative (Negative) Urine Ketones Trace H (Negative) Urine Blood Negative (Negative) Urine Nitrite Negative (Negative) Urine Bilirubin Negative (Negative) Urine Urobilinogen Negative (Negative) Ur Leukocyte Esterase Negative (Negative) Urine Opiates Screen (Neg) Ur Methadone, Qual (Neg) Urine Barbiturates (Neg) Ur Phencyclidine (PCP) (Neg) U Amphetamin/Meth Scrn (Neg) MDMA (Ecstasy) Screen (Neg) U Benzodiazepines Scrn (Neg) Ur Cocaine Metabolite (Neg) U Marijuana (THC) Screen (Neg) Blood Type Antibody Screen Crossmatch 08/30/22 08/30/22 08/30/22 Range/Units 03:00 01:38 00:25 WBC (4.8-10.8) K/ul RBC (4.63-6.08) M/uL Hgb 7.2 L Cancelled (14.0-18.0) g/dl POC Hgb Hct 22.5 L Cancelled (40.1-51.0) % POC Hct (42-52) % MCV (80.0-100.0) fL MCH (25.0-34.0) pg MCHC (32.0-36.0) g/dL RDW Std Deviation (36.4-46.3) fL RDW Coeff of Cheryl (11.5-14.5) % Plt Count (130-400) K/uL MPV (9.4-12.4) fL Immature Gran % (Auto) % Neut % (Auto) % Lymph % (Auto) % Gilmer % (Auto) % Eos % (Auto) % Baso % (Auto) % Neut # (Auto) (1.4-6.5) K/uL Lymph # (Auto) (1.2-3.4) K/uL Gilmer # (Auto) (0.24-0.82) K/uL Eos # (Auto) (0-0.50) K/uL Baso # (Auto) (0-0.2) K/uL Immature Gran # (Auto) (0.00-0.02) K/uL Absolute Nucleated RBC (0-0) K/uL Nucleated RBC % (auto) % POC pH (7.35-7.45) POC pCO2 (35-46) mmHg POC pO2 (80-95) mmHg POC HCO3 (19-24) derek/L POC Total CO2 (24-31) mmol/L POC Base Excess (-9-1.8) derek/L ABG pH (7.35-7.45) ABG pCO2 (35-46) mmHg ABG pO2 (80-95) mmHg ABG HCO3 (19-24) mmol/L POC ABG O2 Sat (90-95) % ABG O2 Saturation (90-95) % ABG Base Excess (-9-1.8) mEq/L Galen Test (Pos) Oxygen Given POC Sodium (135-144) mmol/L Sodium (136-145) mmol/L POC Potassium (3.3-5.0) mmol/L Potassium (3.5-5.1) mmol/L Chloride (98-107) mmol/L Carbon Dioxide (21-32) mmol/L Anion Gap (3-11) BUN (6-23) mg/dl Creatinine (0.6-1.4) mg/dl Est Cr Clr Drug Dosing ml/min Est GFR ( Amer) ml/min Est GFR (Non-Af Amer) ml/min BUN/Creatinine Ratio (10-20) Glucose (70-99(Fasting)) mg/dl POC Glucose (70-99) mg/dl Calcium (8.5-10.1) mg/dl Phosphorus (2.5-4.9) mg/dl Magnesium (1.7-2.4) mg/dl Troponin I High Sens (0-20) pg/ml Urine Color Urine Appearance (Clear) Urine pH (4.5-7.5) Ur Specific Beverly (1.000-1.030) Urine Protein (Negative) Urine Glucose (UA) (Negative) Urine Ketones (Negative) Urine Blood (Negative) Urine Nitrite (Negative) Urine Bilirubin (Negative) Urine Urobilinogen (Negative) Ur Leukocyte Esterase (Negative) Urine Opiates Screen Neg (Neg) Ur Methadone, Qual Neg (Neg) Urine Barbiturates Neg (Neg) Ur Phencyclidine (PCP) Neg (Neg) U Amphetamin/Meth Scrn Neg (Neg) MDMA (Ecstasy) Screen Neg (Neg) U Benzodiazepines Scrn Neg (Neg) Ur Cocaine Metabolite Neg (Neg) U Marijuana (THC) Screen Neg (Neg) Blood Type Antibody Screen Crossmatch 08/30/22 08/29/22 08/29/22 Range/Units 00:05 18:20 15:50 WBC (4.8-10.8) K/ul RBC (4.63-6.08) M/uL Hgb 7.9 L (14.0-18.0) g/dl POC Hgb Hct 25.1 L (40.1-51.0) % POC Hct (42-52) % MCV (80.0-100.0) fL MCH (25.0-34.0) pg MCHC (32.0-36.0) g/dL RDW Std Deviation (36.4-46.3) fL RDW Coeff of Cheryl (11.5-14.5) % Plt Count (130-400) K/uL MPV (9.4-12.4) fL Immature Gran % (Auto) % Neut % (Auto) % Lymph % (Auto) % Gilmer % (Auto) % Eos % (Auto) % Baso % (Auto) % Neut # (Auto) (1.4-6.5) K/uL Lymph # (Auto) (1.2-3.4) K/uL Gilmer # (Auto) (0.24-0.82) K/uL Eos # (Auto) (0-0.50) K/uL Baso # (Auto) (0-0.2) K/uL Immature Gran # (Auto) (0.00-0.02) K/uL Absolute Nucleated RBC (0-0) K/uL Nucleated RBC % (auto) % POC pH (7.35-7.45) POC pCO2 (35-46) mmHg POC pO2 (80-95) mmHg POC HCO3 (19-24) derek/L POC Total CO2 (24-31) mmol/L POC Base Excess (-9-1.8) derek/L ABG pH (7.35-7.45) ABG pCO2 (35-46) mmHg ABG pO2 (80-95) mmHg ABG HCO3 (19-24) mmol/L POC ABG O2 Sat (90-95) % ABG O2 Saturation (90-95) % ABG Base Excess (-9-1.8) mEq/L Galen Test (Pos) Oxygen Given POC Sodium (135-144) mmol/L Sodium (136-145) mmol/L POC Potassium (3.3-5.0) mmol/L Potassium (3.5-5.1) mmol/L Chloride (98-107) mmol/L Carbon Dioxide (21-32) mmol/L Anion Gap (3-11) BUN (6-23) mg/dl Creatinine (0.6-1.4) mg/dl Est Cr Clr Drug Dosing ml/min Est GFR ( Amer) ml/min Est GFR (Non-Af Amer) ml/min BUN/Creatinine Ratio (10-20) Glucose (70-99(Fasting)) mg/dl POC Glucose 130 H 117 H (70-99) mg/dl Calcium (8.5-10.1) mg/dl Phosphorus (2.5-4.9) mg/dl Magnesium (1.7-2.4) mg/dl Troponin I High Sens (0-20) pg/ml Urine Color Urine Appearance (Clear) Urine pH (4.5-7.5) Ur Specific Beverly (1.000-1.030) Urine Protein (Negative) Urine Glucose (UA) (Negative) Urine Ketones (Negative) Urine Blood (Negative) Urine Nitrite (Negative) Urine Bilirubin (Negative) Urine Urobilinogen (Negative) Ur Leukocyte Esterase (Negative) Urine Opiates Screen (Neg) Ur Methadone, Qual (Neg) Urine Barbiturates (Neg) Ur Phencyclidine (PCP) (Neg) U Amphetamin/Meth Scrn (Neg) MDMA (Ecstasy) Screen (Neg) U Benzodiazepines Scrn (Neg) Ur Cocaine Metabolite (Neg) U Marijuana (THC) Screen (Neg) Blood Type Antibody Screen Crossmatch 08/29/22 08/29/22 08/29/22 Range/Units 15:50 15:37 03:02 WBC (4.8-10.8) K/ul RBC (4.63-6.08) M/uL Hgb (14.0-18.0) g/dl POC Hgb TNP Hct (40.1-51.0) % POC Hct < 15 L* (42-52) % MCV (80.0-100.0) fL MCH (25.0-34.0) pg MCHC (32.0-36.0) g/dL RDW Std Deviation (36.4-46.3) fL RDW Coeff of Cheryl (11.5-14.5) % Plt Count (130-400) K/uL MPV (9.4-12.4) fL Immature Gran % (Auto) % Neut % (Auto) % Lymph % (Auto) % Gilmer % (Auto) % Eos % (Auto) % Baso % (Auto) % Neut # (Auto) (1.4-6.5) K/uL Lymph # (Auto) (1.2-3.4) K/uL Gilmer # (Auto) (0.24-0.82) K/uL Eos # (Auto) (0-0.50) K/uL Baso # (Auto) (0-0.2) K/uL Immature Gran # (Auto) (0.00-0.02) K/uL Absolute Nucleated RBC (0-0) K/uL Nucleated RBC % (auto) % POC pH 7.38 (7.35-7.45) POC pCO2 57 H (35-46) mmHg POC pO2 134 H (80-95) mmHg POC HCO3 34 H (19-24) derek/L POC Total CO2 35 H (24-31) mmol/L POC Base Excess 8.0 H (-9-1.8) derek/L ABG pH (7.35-7.45) ABG pCO2 (35-46) mmHg ABG pO2 (80-95) mmHg ABG HCO3 (19-24) mmol/L POC ABG O2 Sat 99.0 H (90-95) % ABG O2 Saturation (90-95) % ABG Base Excess (-9-1.8) mEq/L Galen Test (Pos) Oxygen Given POC Sodium 138 (135-144) mmol/L Sodium 140 (136-145) mmol/L POC Potassium 5.9 H (3.3-5.0) mmol/L Potassium 5.0 (3.5-5.1) mmol/L Chloride 106 (98-107) mmol/L Carbon Dioxide 29 (21-32) mmol/L Anion Gap 5 (3-11) BUN 49 H (6-23) mg/dl Creatinine 2.79 H D (0.6-1.4) mg/dl Est Cr Clr Drug Dosing 55.3 ml/min Est GFR ( Amer) 28.1 ml/min Est GFR (Non-Af Amer) 24.2 ml/min BUN/Creatinine Ratio 17.6 (10-20) Glucose 95 (70-99(Fasting)) mg/dl POC Glucose (70-99) mg/dl Calcium 8.6 (8.5-10.1) mg/dl Phosphorus (2.5-4.9) mg/dl Magnesium (1.7-2.4) mg/dl Troponin I High Sens 326.5 H* D (0-20) pg/ml Urine Color Urine Appearance (Clear) Urine pH (4.5-7.5) Ur Specific Beverly (1.000-1.030) Urine Protein (Negative) Urine Glucose (UA) (Negative) Urine Ketones (Negative) Urine Blood (Negative) Urine Nitrite (Negative) Urine Bilirubin (Negative) Urine Urobilinogen (Negative) Ur Leukocyte Esterase (Negative) Urine Opiates Screen (Neg) Ur Methadone, Qual (Neg) Urine Barbiturates (Neg) Ur Phencyclidine (PCP) (Neg) U Amphetamin/Meth Scrn (Neg) MDMA (Ecstasy) Screen (Neg) U Benzodiazepines Scrn (Neg) Ur Cocaine Metabolite (Neg) U Marijuana (THC) Screen (Neg) Blood Type O Negative Antibody Screen NEGATIVE Crossmatch See Detail
--- NOTE | 2022-08-30 12:10 | Consultation Report ---
NEPHROLOGY CONSULTATION NOTE DATE OF SERVICE: 08/30/2022. REASON FOR CONSULTATION: Acute renal failure. HISTORY OF PRESENT ILLNESS: The patient is a 56-year-old male with morbid obesity with obstructive sleep apnea, but not on BiPAP; chronic anemia, Borderline type 2 diabetes, who presented to the hospital because of increasing weakness, fatigue, lightheadedness, nausea, vomiting and also history of recent blood in the stool. He was found to be very anemic with a hemoglobin of 5.9 and since admission, he has received multiple units of blood transfusion and most recent hemoglobin is 8.4. He was also found to be in acute renal failure with a creatinine of 2.06, which has gone up even more to 3.46 today. The patient is also receiving IV fluid. The patient recently moved to [place] from [place] in end of 06/2022. He says he also had acute renal failure while he was in [place] with creatinine as high as 4.6, but did not require dialysis. Since being admitted, patient has been seen by Pulmonary and has put him on BiPAP and oxygen. The patient has chronic compensated hypercapnic respiratory failure based on the arterial blood gas. He has a Starks catheter at this time and since being admitted, he has made about 750 mL of urine in slightly less than 24-hour time. Blood pressure is not low, oxygen is good now with oxygen, but I do not know whether he had hypoxia at home or not. PAST MEDICAL AND SURGICAL HISTORY: Includes morbid obesity, obstructive sleep apnea, but not using CPAP, chronic kidney disease, baseline creatinine 1.4, chronic anemia with a baseline hemoglobin of 9, hypertension, hyperlipidemia, history of rheumatoid arthritis, history of chronic back pain, type 2 diabetes, toe surgery, left breast biopsy, knee surgery, tonsillectomy, adenoidectomy and dental surgery. ALLERGIES: IODINE. FAMILY HISTORY: Positive for diabetes and hypertension. SOCIAL HISTORY: He is and lives with his spouse, recently moved to [place] from [place]. REVIEW OF SYSTEMS: As detailed in HPI; unless stated otherwise, 12 systems reviewed and negative. The patient was somewhat confused at the time of admission with encephalopathy and does not recall much of the events prior to hospitalization. PHYSICAL EXAMINATION: GENERAL: A middle-aged white male who is morbidly obese. He is awake, alert, oriented x3, able to give me a pretty detailed account of his medical problem, but he does appear to be in somewhat of a discomfort from pain in the back. HEENT: Mucous membrane is moist. NECK: Supple. No JVD. VITAL SIGNS: Blood pressure is 121/90, pulse rate 98, temperature 36.8, oxygen saturation 100% on 2 liter nasal cannula. CHEST: Bilateral clear to auscultation. Decreased breath sounds, secondary to poor inspiratory effort. CARDIOVASCULAR: S1 and S2, regular. ABDOMEN: Soft, nontender. EXTREMITIES: Show no edema. LABORATORY TEST: Creatinine seems to be rising, baseline is 1.4 on admission yesterday was 2.06, this morning is 3.46, sodium 138, potassium 5.4, chloride 105, bicarbonate 26, calcium 8.6, phosphorus 4.7, magnesium 2.0. Troponin is high at 326. Hemoglobin on admission was 5.9 and has gone up to 8.4 after blood transfusion. Renal ultrasound already done and does not show hydronephrosis or kidney stone. He does have bilateral simple as well as complex renal cyst, as well as diffuse cortical thinning. CT abdomen and pelvis and CT chest shows no real acute abnormalities other than a renal cyst. CT chest and chest x-ray was unremarkable. Urine test shows negative blood, negative protein. ASSESSMENT AND PLAN: A 56-year-old male who presented to the hospital with severe anemia with a hemoglobin of 5.9, presumably secondary to GI bleed, which he had as an outpatient. Most of his symptoms can be explained by GI bleed with severe anemia. I have been consulted for acute renal failure. Acute renal failure, most likely there is some degree of acute tubular ischemia given the sudden drop in hemoglobin down to the 5 range. He also has chronic respiratory failure, which makes him very susceptible to hypoxic injury to renal tubules and especially in the setting of acute blood loss anemia. He has been getting fluids and for the time being, I would continue with the fluid at least for another 24 hours, but he does not appear to be really volume depleted. His creatinine is still rising, so we do not know the full extent of the renal tubular injury. But he is making urine and his electrolytes are not that unreasonable, so we have many days before we have to consider doing renal replacement therapy. Hopefully, he will improve before that is needed. It seems the patient is quite susceptible to acute renal failure and he has had episodes in the past, but not needed dialysis. I would continue to support his hemodynamic status, especially his oxygen level and continue with the BiPAP. Potassium is only borderline high and should come down as the renal failure improves, no further workup is needed for the acute renal failure. We have already ruled out hydronephrosis. The patient is getting IV fluid. His urine sediment is pretty bland without blood or protein, which pretty much rules out most causes of acute glomerulonephritis. For now, continue input output charting and daily labs. I will continue to follow. Thank you very much for the consult. Job ID: [id number] JAVIER
[2022-08-30] MEDS ORDERED: LAVAGE SOLUTION 4000ML PO SCH (18:00)
[2022-08-30 20:42] LABS: Hematocrit (blood only) 22.2 % (40.1-51.0); Hemoglobin 7.1 g/dl (14.0-18.0)
[2022-08-30] MEDS: HYDROCORTISONE SOD 50 MG in SYRINGE 0 ML IV SCH (20:43)
[2022-08-31] MEDS: METOPROLOL TARTRATE 1 MG/ML VIAL IV SCH ×3 (02:16→12:48)
[2022-08-31] MEDS: HYDROCORTISONE SOD 50 MG in SYRINGE 0 ML IV SCH ×4 (02:17→18:37)
[2022-08-31] MEDS: SODIUM CHLORIDE 0.9% 1000ML 1,000 ML IV SCH (04:50)
[2022-08-31] MEDS: SODIUM ZIRCONIUM CYCLOSILICATE 10 GM PACKET PO SCH (05:21)
[2022-08-31] MEDS ORDERED: Nursing to Pharmacy Communication SCH (07:30)
--- NOTE | 2022-08-31 07:31 | Hospitalist Progress Note ---
Date of Service August 31, 2022 Assessment & Plan (1) Encephalopathy: Plan: Multifactorial : Respiratory failure, possible OHS, untreated RUTH (patient still has to go for a sleep study as per .) Acute on chronic anemia secondary to L GIB rule out C. difficile ARF on CKD Rule out UTI, possible sepsis Troponin elevation secondary to illness Encephalopathy resolved Continues to use suppl. O2 via NC Needs to use bipap given OHS, RUTH Pulmonary consult Re: Respiratory failure, probable RUTH, appreciate their input UA negative blood cultx - pending Anemia/ GI bleed FOBT pending + blood in stool stool studies, c. diff pending Received 4 units of pRBC thus far Anemia work-up, transfuse PRBC to maintain hemoglobin greater than 7 and or for symptomatic anemia IV PPI GI consulted - plan for endoscopy CHERYL Starks catheter now, baseline UA, monitor creatinine response to IVF CT abd/ pelvis - abnormal imaging of kidneys Of note patient reports having CHERYL and being hospitalized for it in [place] Renal ultrasound ordered, nephrology consulted, appreciate their input 1. No renal calculi, hydronephrosis or solid renal mass lesions identified by ultrasound. Please note however that the study is limited secondary to patient body habitus. 2. Bilateral simple and complex renal cysts. 3. Bilateral diffuse cortical thinning with decreased corticomedullary differentiation compatible with chronic medical renal disease. Elevated troponin -secondary to illness above, no chest pain Echo ordered Hyperglycemia -likely prediabetes, hemoglobin A1c of 5.31 July 2022 as per outpatient records - monitor blood sugar while inpt Ongoing tobacco abuse - counseling Nicotine patch Hypertension, stable Hyperlipidemia, statin noncompliance morbid obesity hx gout/rheumatoid arthritis chronic back pain medication noncompliance as per records DVT prophylaxis. SCDs Re: GI bleed Full code Mrs. Rima Bowie - contact # [phone]. Admission and Anticipated Discharge Date Admission Date: August 29, 2022 Subjective Pt seen in follow up of anemia, GI bleed, resp. failure Pt w/ morbid obesity, obesity hypovent. syndrome required bipap, now on NC awake and able to answer questions appropriately Overnight patient had blood in the stool Repeat hemoglobin in the evening was 7.1, another unit of PRBC was ordered overnight denies abdominal pain, says he just feels hungry Currently denies fevers chills Also reports history of CHERYL when he was in the hospital in [place] Plan for endoscopy today with GI Review of Systems Review of Systems: All systems reviewed & are unremarkable except as noted in Subjective Physical Exam Physical Exam: Constitutional: Morbidly obese M in NAD, on NC Eyes: EOMI, PERRL. Conjunctivae are normal. Anicteric sclera. Neck: thick short neck Respiratory: No use of accessory muscles.Minimal crackles, no wheezing Cardiovascular: Regular rate and rhythm. No murmurs. No edema. Gastrointestinal: Normal bowel sounds, soft, obese nontender and nondistended. : Starks catheter placed Musculoskeletal: Moves all extremities. Skin: No rashes, warm dry and intact. Neurologic: Speech fluent. Follows commands. Answers appropriately. Results & Data Results & Data ([facility]) Vital Signs (Past 12 Hours) Vital Signs Temp Pulse Pulse Resp BP BP Pulse Ox 08/31/22 03:24 36.8 C 81 22 130/89 91 08/31/22 02:16 88 142/81 H 08/31/22 01:23 08/31/22 01:02 36.9 C 90 20 151/89 H 95 08/30/22 23:04 36.8 C 89 20 123/89 95 08/31/22 00:13 36.7 C 91 H 14 133/94 98 08/30/22 23:13 36.8 C 93 H 12 130/80 96 08/30/22 22:43 36.7 C 94 H 15 111/81 97 08/30/22 22:28 36.9 C 92 H 14 112/89 98 08/30/22 22:12 36.8 C 88 18 122/83 98 O2 Del Method O2 Flow Rate 08/31/22 03:24 Nasal Cannula 08/31/22 02:16 08/31/22 01:23 Nasal Cannula 2 08/31/22 01:02 2 08/30/22 23:04 Nasal Cannula 08/31/22 00:13 2 08/30/22 23:13 2 08/30/22 22:43 2 08/30/22 22:28 2 08/30/22 22:12 2 Laboratory Results 08/31/22 08/31/22 08/31/22 Range/Units 07:26 06:57 06:57 WBC 15.34 H (4.8-10.8) K/ul RBC 2.74 L (4.63-6.08) M/uL Hgb 8.2 L (14.0-18.0) g/dl Hct 26.0 L (40.1-51.0) % MCV 94.9 (80.0-100.0) fL MCH 29.9 (25.0-34.0) pg MCHC 31.5 L (32.0-36.0) g/dL RDW Std Deviation 53.5 H (36.4-46.3) fL RDW Coeff of Cheryl 15.3 H (11.5-14.5) % Plt Count 220 (130-400) K/uL MPV 10.3 (9.4-12.4) fL Immature Gran % (Auto) % Neut % (Auto) % Lymph % (Auto) % [place] % (Auto) % Eos % (Auto) % Baso % (Auto) % Neut # (Auto) (1.4-6.5) K/uL Lymph # (Auto) (1.2-3.4) K/uL [place] # (Auto) (0.24-0.82) K/uL Eos # (Auto) (0-0.50) K/uL Baso # (Auto) (0-0.2) K/uL Immature Gran # (Auto) (0.00-0.02) K/uL Absolute Nucleated RBC 0.04 H (0-0) K/uL Nucleated RBC % (auto) 0.3 % Sodium 138 (136-145) mmol/L Potassium 4.5 (3.5-5.1) mmol/L Chloride 102 (98-107) mmol/L Carbon Dioxide 27 (21-32) mmol/L Anion Gap 9 (3-11) BUN 58 H (6-23) mg/dl Creatinine 3.66 H (0.6-1.4) mg/dl Est Cr Clr Drug Dosing 42.1 ml/min Est GFR ( Amer) 20.2 ml/min Est GFR (Non-Af Amer) 17.5 ml/min BUN/Creatinine Ratio 15.8 (10-20) Glucose 135 H (70-99(Fasting)) mg/dl POC Glucose 161 H (70-99) mg/dl Calcium 8.2 L (8.5-10.1) mg/dl Phosphorus 5.9 H (2.5-4.9) mg/dl Magnesium 2.1 (1.7-2.4) mg/dl Total Bilirubin 0.5 (0.2-1.0) mg/dl AST 12 L (13-39) U/L ALT 11 (7-52) U/L Alkaline Phosphatase 55 (34-104) U/L Total Protein 5.6 L (6.0-8.3) gm/dl Albumin 2.8 L (3.4-5.0) gm/dl Globulin 2.8 (2.5-4.0) gm/dl Albumin/Globulin Ratio 1.0 (0.9-2) Blood Type Antibody Screen Crossmatch 08/30/22 08/30/22 08/30/22 Range/Units 20:23 20:11 16:09 WBC (4.8-10.8) K/ul RBC (4.63-6.08) M/uL Hgb 7.1 L (14.0-18.0) g/dl Hct 22.2 L (40.1-51.0) % MCV (80.0-100.0) fL MCH (25.0-34.0) pg MCHC (32.0-36.0) g/dL RDW Std Deviation (36.4-46.3) fL RDW Coeff of Cheryl (11.5-14.5) % Plt Count (130-400) K/uL MPV (9.4-12.4) fL Immature Gran % (Auto) % Neut % (Auto) % Lymph % (Auto) % [place] % (Auto) % Eos % (Auto) % Baso % (Auto) % Neut # (Auto) (1.4-6.5) K/uL Lymph # (Auto) (1.2-3.4) K/uL [place] # (Auto) (0.24-0.82) K/uL Eos # (Auto) (0-0.50) K/uL Baso # (Auto) (0-0.2) K/uL Immature Gran # (Auto) (0.00-0.02) K/uL Absolute Nucleated RBC (0-0) K/uL Nucleated RBC % (auto) % Sodium (136-145) mmol/L Potassium (3.5-5.1) mmol/L Chloride (98-107) mmol/L Carbon Dioxide (21-32) mmol/L Anion Gap (3-11) BUN (6-23) mg/dl Creatinine (0.6-1.4) mg/dl Est Cr Clr Drug Dosing ml/min Est GFR ( Amer) ml/min Est GFR (Non-Af Amer) ml/min BUN/Creatinine Ratio (10-20) Glucose (70-99(Fasting)) mg/dl POC Glucose 177 H 208 H (70-99) mg/dl Calcium (8.5-10.1) mg/dl Phosphorus (2.5-4.9) mg/dl Magnesium (1.7-2.4) mg/dl Total Bilirubin (0.2-1.0) mg/dl AST (13-39) U/L ALT (7-52) U/L Alkaline Phosphatase (34-104) U/L Total Protein (6.0-8.3) gm/dl Albumin (3.4-5.0) gm/dl Globulin (2.5-4.0) gm/dl Albumin/Globulin Ratio (0.9-2) Blood Type Antibody Screen Crossmatch 08/30/22 08/30/22 08/30/22 Range/Units 11:18 08:04 08:04 WBC 17.56 H (4.8-10.8) K/ul RBC 2.86 L (4.63-6.08) M/uL Hgb 8.4 L (14.0-18.0) g/dl Hct 26.8 L (40.1-51.0) % MCV 93.7 D (80.0-100.0) fL MCH 29.4 (25.0-34.0) pg MCHC 31.3 L (32.0-36.0) g/dL RDW Std Deviation 55.8 H (36.4-46.3) fL RDW Coeff of Cheryl 16.2 H (11.5-14.5) % Plt Count 220 (130-400) K/uL MPV 10.5 (9.4-12.4) fL Immature Gran % (Auto) 0.7 % Neut % (Auto) 78.5 % Lymph % (Auto) 8.2 % [place] % (Auto) 11.4 % Eos % (Auto) 1.0 % Baso % (Auto) 0.2 % Neut # (Auto) 13.79 H (1.4-6.5) K/uL Lymph # (Auto) 1.44 (1.2-3.4) K/uL [place] # (Auto) 2.00 H (0.24-0.82) K/uL Eos # (Auto) 0.17 (0-0.50) K/uL Baso # (Auto) 0.04 (0-0.2) K/uL Immature Gran # (Auto) 0.12 H (0.00-0.02) K/uL Absolute Nucleated RBC 0.13 H (0-0) K/uL Nucleated RBC % (auto) 0.7 % Sodium 138 (136-145) mmol/L Potassium 5.4 H (3.5-5.1) mmol/L Chloride 105 (98-107) mmol/L Carbon Dioxide 26 (21-32) mmol/L Anion Gap 7 (3-11) BUN 54 H (6-23) mg/dl Creatinine 3.46 H D (0.6-1.4) mg/dl Est Cr Clr Drug Dosing 44.6 ml/min Est GFR ( Amer) 21.6 ml/min Est GFR (Non-Af Amer) 18.7 ml/min BUN/Creatinine Ratio 15.6 (10-20) Glucose 106 H (70-99(Fasting)) mg/dl POC Glucose 116 H (70-99) mg/dl Calcium 8.6 (8.5-10.1) mg/dl Phosphorus 4.7 (2.5-4.9) mg/dl Magnesium 2.0 (1.7-2.4) mg/dl Total Bilirubin (0.2-1.0) mg/dl AST (13-39) U/L ALT (7-52) U/L Alkaline Phosphatase (34-104) U/L Total Protein (6.0-8.3) gm/dl Albumin (3.4-5.0) gm/dl Globulin (2.5-4.0) gm/dl Albumin/Globulin Ratio (0.9-2) Blood Type Antibody Screen Crossmatch 08/29/22 Range/Units 03:02 WBC (4.8-10.8) K/ul RBC (4.63-6.08) M/uL Hgb (14.0-18.0) g/dl Hct (40.1-51.0) % MCV (80.0-100.0) fL MCH (25.0-34.0) pg MCHC (32.0-36.0) g/dL RDW Std Deviation (36.4-46.3) fL RDW Coeff of Cheryl (11.5-14.5) % Plt Count (130-400) K/uL MPV (9.4-12.4) fL Immature Gran % (Auto) % Neut % (Auto) % Lymph % (Auto) % [place] % (Auto) % Eos % (Auto) % Baso % (Auto) % Neut # (Auto) (1.4-6.5) K/uL Lymph # (Auto) (1.2-3.4) K/uL [place] # (Auto) (0.24-0.82) K/uL Eos # (Auto) (0-0.50) K/uL Baso # (Auto) (0-0.2) K/uL Immature Gran # (Auto) (0.00-0.02) K/uL Absolute Nucleated RBC (0-0) K/uL Nucleated RBC % (auto) % Sodium (136-145) mmol/L Potassium (3.5-5.1) mmol/L Chloride (98-107) mmol/L Carbon Dioxide (21-32) mmol/L Anion Gap (3-11) BUN (6-23) mg/dl Creatinine (0.6-1.4) mg/dl Est Cr Clr Drug Dosing ml/min Est GFR ( Amer) ml/min Est GFR (Non-Af Amer) ml/min BUN/Creatinine Ratio (10-20) Glucose (70-99(Fasting)) mg/dl POC Glucose (70-99) mg/dl Calcium (8.5-10.1) mg/dl Phosphorus (2.5-4.9) mg/dl Magnesium (1.7-2.4) mg/dl Total Bilirubin (0.2-1.0) mg/dl AST (13-39) U/L ALT (7-52) U/L Alkaline Phosphatase (34-104) U/L Total Protein (6.0-8.3) gm/dl Albumin (3.4-5.0) gm/dl Globulin (2.5-4.0) gm/dl Albumin/Globulin Ratio (0.9-2) Blood Type O Negative Antibody Screen NEGATIVE Crossmatch See Detail Medications Administered Current Inpatient Medications Acetaminophen (Acetaminophen 325 Mg Tab) 650 mg PO Q4H PRN PRN Reason: Pain or Fever Stop: 09/28/22 07:58 Last Admin: 08/30/22 04:27 Dose: 650 mg Sodium Chloride (Nss 1000ml) 1,000 mls @ 100 mls/hr IV .Q10H COUNT INCLUDES THE [facility] Stop: 09/28/22 22:29 Last Admin: 08/31/22 04:50 Dose: 100 mls/hr Pantoprazole Sodium 40 mg/ (Syringe) 10 mls @ 5 mls/min IV BID COUNT INCLUDES THE [facility] Stop: 09/28/22 22:29 Last Admin: 08/30/22 20:43 Dose: 5 mls/min Cefepime HCl 2,000 mg/ Syringe 20 mls @ 5 mls/min IV Q12H COUNT INCLUDES THE [facility]; Protocol Stop: 09/01/22 09:59 Last Admin: 08/30/22 20:43 Dose: 5 mls/min Hydrocortisone Sodium (Succinate 50 mg/ Syringe) 1 mls @ 4 mls/min IV Q6H COUNT INCLUDES THE [facility] Stop: 09/29/22 17:59 Last Admin: 08/31/22 05:21 Dose: 4 mls/min Metoprolol Tartrate (Metoprolol Tartrate 1 Mg/Ml Vial) 2.5 mg IV Q6H COUNT INCLUDES THE [facility] Stop: 09/28/22 11:59 Last Admin: 08/31/22 05:21 Dose: 2.5 mg Miscellaneous Information (Nursing To Pharmacy Communication) 1 each N/A TODAY COUNT INCLUDES THE [facility] Stop: 09/30/22 07:29 Sodium Zirconium Cyclosilicate (Sodium Zirconium Cyclosilicate 10 Gm Packet) 10 gm PO TID@0600,1200,1800 COUNT INCLUDES THE [facility] Stop: 09/01/22 06:01 Last Admin: 08/31/22 05:21 Dose: 10 gm Verapamil HCl (Verapamil Hcl 240 Mg Tabcr) 240 mg PO QAM COUNT INCLUDES THE [facility] Stop: 09/28/22 08:59 Last Admin: 08/30/22 09:42 Dose: Not Given
[2022-08-31 07:43] LABS: Hemoglobin 8.2 g/dl (14.0-18.0); Mean Corpuscular Hemoglobin 29.9 pg (25.0-34.0); Mean Corpuscular Hgb Conc 31.5 g/dL (32.0-36.0); Mean Corpuscular Volume 94.9 fL (80.0-100.0); Mean Platelet Volume 10.3 fL (9.4-12.4); Nucleated RBC # (auto) 0.04 K/uL (0-0); Nucleated RBC % (auto) 0.3 %; Platelet Count 220 K/uL (130-400); RDW Coefficient of Variation 15.3 % (11.5-14.5); RDW Standard Deviation 53.5 fL (36.4-46.3); Red Blood Count 2.74 M/uL (4.63-6.08); White Blood Count 15.34 K/ul (4.8-10.8)
[2022-08-31 08:03] LABS: Albumin Level 2.8 gm/dl (3.4-5.0); BUN Creatinine Ratio 15.8 (10-20); Bilirubin,Total 0.5 mg/dl (0.2-1.0); Calcium 8.2 mg/dl (8.5-10.1); Creatinine Clr Calc Pharmacy 42.1 ml/min; Est GFR (African American) 20.2 ml/min; Est GFR (Non-African American) 17.5 ml/min; Globulin 2.8 gm/dl (2.5-4.0); Magnesium 2.1 mg/dl (1.7-2.4); Phosphorus 5.9 mg/dl (2.5-4.9); Potassium 4.5 mmol/L (3.5-5.1); Total Protein 5.6 gm/dl (6.0-8.3)
[2022-08-31] MEDS: VERAPAMIL HCL 240 MG TABCR PO SCH ×2 (08:43→16:45)
[2022-08-31] MEDS: PANTOprazole 40 MG in SYRINGE 0 ML IV SCH ×2 (09:33→20:19)
[2022-08-31] MEDS: CEFEPIME 2,000 MG in SYRINGE 0 ML IV SCH ×2 (09:36→20:19)
--- NOTE | 2022-08-31 10:26 | Anesthesiology Consultation ---
Date of Service August 31, 2022 History Surgery Operation Date: 08/31/22 16:45 Proposed Procedures p Colonoscopy EGD Dr. Mckenzie - Danita Mckenzie MD Height/Weight Height: 6 ft 3 in Weight: 203.8 kg Allergies Allergy/AdvReac Type Severity Reaction Status Date / Time Iodinated Contrast Media Allergy Hives Verified 08/29/22 01:44 iodine Allergy Hives Verified 08/29/22 01:44 Medications Home Medications Medication Instructions Recorded Confirmed Last Taken carvedilol 6.25 mg tablet 12.5 mg PO AMHS 08/29/22 08/29/22 08/28/22 verapamil 240 mg 24 hr 240 mg PO QAM 08/29/22 08/29/22 08/28/22 capsule,extended release Active Medications Generic Name Dose Route Start Last Admin Trade Name Freq PRN Reason Stop Dose Admin Acetaminophen 650 mg 08/29/22 07:59 08/30/22 04:27 Acetaminophen 325 Mg Tab PO 09/28/22 07:58 650 mg Q4H PRN Administration Pain or Fever Sodium Chloride 1,000 mls @ 100 mls/hr 08/29/22 22:30 08/31/22 04:50 Nss 1000ml IV 09/28/22 22:29 100 mls/hr .Q10H STACY Administration Pantoprazole Sodium 40 mg/ 10 mls @ 5 mls/min 08/29/22 22:30 08/31/22 09:33 Syringe IV 09/28/22 22:29 5 mls/min BID STACY Administration Cefepime HCl 2,000 mg/ Syringe 20 mls @ 5 mls/min 08/30/22 10:00 08/31/22 09:36 IV 09/01/22 09:59 5 mls/min Q12H STACY Administration Protocol Hydrocortisone Sodium 1 mls @ 4 mls/min 08/30/22 18:00 08/31/22 05:21 Succinate 50 mg/ Syringe IV 09/29/22 17:59 4 mls/min Q6H STACY Administration Metoprolol Tartrate 2.5 mg 08/29/22 12:00 08/31/22 05:21 Metoprolol Tartrate 1 Mg/Ml Vial IV 09/28/22 11:59 2.5 mg Q6H STACY Administration Sodium Zirconium Cyclosilicate 10 gm 08/30/22 12:00 08/31/22 05:21 Sodium Zirconium Cyclosilicate 10 Gm Packet PO 09/01/22 06:01 10 gm TID@0600,1200,1800 STACY Administration Verapamil HCl 240 mg 08/29/22 09:00 08/31/22 08:43 Verapamil Hcl 240 Mg Tabcr PO 09/28/22 08:59 Not Given [facility] Past Medical History Medical History (Updated 08/30/22 @ 05:05 by Nina Corona DO) Obesity hypoventilation syndrome Social History Smoking Status: Never smoker Hx Alcohol Use: No Hx Substance Use: No Physical Exam Vital Signs Last Vital Signs Temp 36.7 C 08/31/22 07:29 Pulse 86 08/31/22 07:29 Resp 18 08/31/22 07:29 BP 138/95 08/31/22 07:29 Pulse Ox 100 08/31/22 07:29 O2 Del Method 08/31/22 07:29 O2 Flow Rate 2 08/31/22 07:29 FiO2 30 08/30/22 19:17 Testing Laboratory Results 08/31/22 06:57 08/31/22 06:57 PT 11.0 Seconds (9.0-12.0) 08/29/22 01:14 INR 1.0 (0.9-1.1) 08/29/22 01:14 Hemoglobin A1c 5.6 % (4.5-5.6) 08/29/22 07:18 Urine Color Yellow 08/30/22 03:00 Urine Appearance Clear (Clear) 08/30/22 03:00 Urine pH 5.0 (4.5-7.5) 08/30/22 03:00 Ur Specific [place] 1.014 (1.000-1.030) 08/30/22 03:00 Urine Protein Negative (Negative) 08/30/22 03:00 Urine Glucose (UA) Negative (Negative) 08/30/22 03:00 Urine Ketones Trace (Negative) H 08/30/22 03:00 Urine Nitrite Negative (Negative) 08/30/22 03:00 Ur Leukocyte Esterase Negative (Negative) 08/30/22 03:00 Blood Type O Negative 08/29/22 03:02 Antibody Screen NEGATIVE 08/29/22 03:02 08/29/22 07:18 Aerobic Blood Culture - Preliminary Blood No growth in Aerobic bottle after 48 hours. Anaerobic Blood Culture - Preliminary No growth in Anaerobic bottle after 48 hours. 08/29/22 10:41 Aerobic Blood Culture - Preliminary Blood No growth in Aerobic bottle after 24 hours. Anaerobic Blood Culture - Preliminary No growth in Anaerobic bottle after 24 hours. 08/31/22 07:26 POC Glucose 161 H
--- NOTE | 2022-08-31 10:28 | Anesthesiology Consultation ---
Date of Service August 31, 2022 Assessment & Plan Chart Review Chart Review: Acceptable Risk for Surgery and Patient NOT seen in Pre Admission Testing ASA ASA4 Proposed Anesthesia Anesthesia Type: MAC Risk / Benefits Reviewed With: PT / POA / Parent / Guardian, Accepts Plan and Informed Consent Obtained History Surgery Operation Date: 08/31/22 16:45 Proposed Procedures p Colonoscopy EGD Dr. Mckenzie - Danita Mckenzie MD Height/Weight Height: 6 ft 3 in Weight: 203.8 kg Allergies Allergy/AdvReac Type Severity Reaction Status Date / Time Iodinated Contrast Media Allergy Hives Verified 08/31/22 10:32 iodine Allergy Hives Verified 08/31/22 10:32 Medications Home Medications Medication Instructions Recorded Confirmed Last Taken carvedilol 6.25 mg tablet 12.5 mg PO AMHS 08/29/22 08/29/22 08/28/22 verapamil 240 mg 24 hr 240 mg PO QAM 08/29/22 08/29/22 08/28/22 capsule,extended release Active Medications Generic Name Dose Route Start Last Admin Trade Name Freq PRN Reason Stop Dose Admin Acetaminophen 650 mg 08/29/22 07:59 08/30/22 04:27 Acetaminophen 325 Mg Tab PO 09/28/22 07:58 650 mg Q4H PRN Administration Pain or Fever Sodium Chloride 1,000 mls @ 100 mls/hr 08/29/22 22:30 08/31/22 10:33 Nss 1000ml IV 09/28/22 22:29 0 mls/hr .Q10H STACY Infusion Pantoprazole Sodium 40 mg/ 10 mls @ 5 mls/min 08/29/22 22:30 08/31/22 09:33 Syringe IV 09/28/22 22:29 5 mls/min BID STACY Administration Cefepime HCl 2,000 mg/ Syringe 20 mls @ 5 mls/min 08/30/22 10:00 08/31/22 09:36 IV 09/01/22 09:59 5 mls/min Q12H STACY Administration Protocol Hydrocortisone Sodium 1 mls @ 4 mls/min 08/30/22 18:00 08/31/22 05:21 Succinate 50 mg/ Syringe IV 09/29/22 17:59 4 mls/min Q6H STACY Administration Metoprolol Tartrate 2.5 mg 08/29/22 12:00 08/31/22 05:21 Metoprolol Tartrate 1 Mg/Ml Vial IV 09/28/22 11:59 2.5 mg Q6H STACY Administration Sodium Zirconium Cyclosilicate 10 gm 08/30/22 12:00 08/31/22 05:21 Sodium Zirconium Cyclosilicate 10 Gm Packet PO 09/01/22 06:01 10 gm TID@0600,1200,1800 STACY Administration Verapamil HCl 240 mg 08/29/22 09:00 08/31/22 08:43 Verapamil Hcl 240 Mg Tabcr PO 09/28/22 08:59 Not Given QAM STACY NPO Date Last Intake of Fluids: 08/30/22 Time Last Intake of Fluids: 23:59 Date Last Intake of Solids: 08/30/22 Time Last Intake of Solids: 23:59 Past Medical History Medical History Obesity hypoventilation syndrome Exercise / Class Metabolic Activity II 4-5 Yardwork/Stairs/Walk up hill Pt states that normally able to climb 1 flight of stairs without problems Past Anesthesia History No Hx of Anesthesia Complications and No Family Hx of Anesthesia Complications History of PONV No Hx of PONV and History of PONV Social History Smoking Status: Never smoker Hx Alcohol Use: No Hx Substance Use: No Review of Systems Constitutional: as per Subjective / HPI and + fatigue Eyes: as per Subjective / HPI Ear, Nose, Mouth, Throat: as per Subjective / HPI Respiratory: as per Subjective / HPI Cardiovascular: as per Subjective / HPI and + dyspnea Gastrointestinal: as per Subjective / HPI Genitourinary (Male): + as per Subjective / HPI Musculoskeletal: as per Subjective / HPI Integumentary: as per Subjective / HPI Neurologic: as per Subjective / HPI Psychiatric: as per Subjective / HPI Endocrine: as per Subjective / HPI Hematologic / Lymphatic: as per Subjective / HPI Allergy / Immunological: as per Subjective / HPI Physical Exam Vital Signs Last Vital Signs Temp 36.7 C 08/31/22 07:29 Pulse 86 08/31/22 07:29 Resp 18 08/31/22 07:29 BP 138/95 08/31/22 07:29 Pulse Ox 100 08/31/22 07:29 O2 Del Method 08/31/22 07:29 O2 Flow Rate 2 08/31/22 07:29 FiO2 30 08/30/22 19:17 Constitutional + morbidly obese ENMT Mouth: + dentition abnormality Thyromental Distance: > or= 3.5 Finger Breadths Mallampati Class: II Neck normal visual inspection Respiratory normal respiratory effort Cardiovascular Rate/Rhythm: regular rate and regular rhythm Musculoskeletal Spine: normal cervical ROM Neurologic moves all extremities pain and limited mobility of RUE Psychiatric Orientation: alert and oriented x 3 Testing Laboratory Results 08/31/22 06:57 08/31/22 06:57 PT 11.0 Seconds (9.0-12.0) 08/29/22 01:14 INR 1.0 (0.9-1.1) 08/29/22 01:14 Hemoglobin A1c 5.6 % (4.5-5.6) 08/29/22 07:18 Urine Color Yellow 08/30/22 03:00 Urine Appearance Clear (Clear) 08/30/22 03:00 Urine pH 5.0 (4.5-7.5) 08/30/22 03:00 Ur Specific [place] 1.014 (1.000-1.030) 08/30/22 03:00 Urine Protein Negative (Negative) 08/30/22 03:00 Urine Glucose (UA) Negative (Negative) 08/30/22 03:00 Urine Ketones Trace (Negative) H 08/30/22 03:00 Urine Nitrite Negative (Negative) 08/30/22 03:00 Ur Leukocyte Esterase Negative (Negative) 08/30/22 03:00 Blood Type O Negative 08/29/22 03:02 Antibody Screen NEGATIVE 08/29/22 03:02 08/29/22 07:18 Aerobic Blood Culture - Preliminary Blood No growth in Aerobic bottle after 48 hours. Anaerobic Blood Culture - Preliminary No growth in Anaerobic bottle after 48 hours. 08/29/22 10:41 Aerobic Blood Culture - Preliminary Blood No growth in Aerobic bottle after 24 hours. Anaerobic Blood Culture - Preliminary No growth in Anaerobic bottle after 24 hours. 08/31/22 07:26 POC Glucose 161 H
[2022-08-31] MEDS ORDERED: KETAMINE 50 MG/5 ML SYRINGE ONE (10:48)
[2022-08-31] MEDS ORDERED: LIDOCAINE 2% MPF LOCAL 5 ML VIAL INFIL ONE (10:48)
[2022-08-31] MEDS ORDERED: GLYCOPYRROLATE 0.2 MG/ML VIAL ONE (10:48)
[2022-08-31] MEDS ORDERED: BENZOCAINE/TETRACAIN/BUTAM 50 APPLN/5 GM CAN EXT ONE (10:48)
[2022-08-31] MEDS ORDERED: PROPOFOL IV EMULSION 10 MG/ML 20 ML VIAL IV ONE (10:48)
--- NOTE | 2022-08-31 10:55 | History & Physical Bridge Note ---
Date of Service August 31, 2022 History & Physical Bridge Note I have examined the patient, reviewed the History & Physical and in the interval since the performance of the History & Physical I have noted the following changes of clinical significance: no changes noted
--- NOTE | 2022-08-31 10:55 | Nephrology Progress Note ---
Date of Service August 31, 2022 Assessment & Plan Admission and Anticipated Discharge Date Admission Date: August 29, 2022 Subjective S--getting Superior today for Low Hgb/GI bleed. urine 450 ml yesterday --dropped. PHYSICAL EXAMINATION: GENERAL: A middle-aged white male who is morbidly obese. He is awake, alert, oriented x3, able to give me a pretty detailed account of his medical problem, but he does appear to be in somewhat of a discomfort from pain in the back. HEENT: Mucous membrane is moist. NECK: Supple. No JVD. CHEST: Bilateral clear to auscultation. Decreased breath sounds, secondary to poor inspiratory effort. CARDIOVASCULAR: S1 and S2, regular. ABDOMEN: Soft, nontender. EXTREMITIES: Show no edema. LABORATORY TEST: Creatinine seems to be rising but slower today. , baseline is 1.4 on admission yesterday was 2.06, this morning is 3.6. Renal ultrasound already done and does not show hydronephrosis or kidney stone. He does have bilateral simple as well as complex renal cyst, as well as diffuse cortical thinning. CT abdomen and pelvis and CT chest shows no real acute abnormalities other than a renal cyst. CT chest and chest x-ray was unremarkable. Urine test shows negative blood, negative protein. ASSESSMENT AND PLAN: A 56-year-old male who presented to the hospital with severe anemia with a hemoglobin of 5.9, presumably secondary to GI bleed, which he had as an outpatient. Most of his symptoms can be explained by GI bleed with severe anemia. I have been consulted for acute renal failure. Acute renal failure,most likely there is some degree of acute tubular ischemia given the sudden drop in hemoglobin down to the 5 range. He also has chronic respiratory failure, which makes him very susceptible to hypoxic injury to renal tubules and especially in the setting of acute blood loss anemia. He has been getting fluids and for the time being, I would continue with the fluid at least for another 24 hours, but he does not appear to be really volume depleted. His creatinine is still rising, so we do not know the full extent of the renal tubular injury. It seems the patient is quite susceptible to acute renal failure and he has had episodes in the past, but not needed dialysis. I would continue to support his hemodynamic status, especially his oxygen level and continue with the BiPAP. Potassium is only borderline high and should come down as the renal failure improves, no further workup is needed for the acute renal failure. We have already ruled out hydronephrosis. The patient is getting IV fluid. His urine sediment is pretty bland without blood or protein, which pretty much rules out most causes of acute glomerulonephritis. Rec: 1 Creat still rising but the rate of rise has slowed down. NO dialysis today. For now, continue input output charting and daily labs. 2 Urine output has been low. No need of more iv fluids already got enough ivfluid + blood products once NPO is off. May need lasix iv as challenge. Has high risk for developing Pulm edema with ATN. 3 I will continue to follow. Results & Data ([facility]) Vital Signs (Past 12 Hours) Vital Signs Temp Pulse Pulse Pulse Resp BP BP 08/31/22 10:34 36.1 C L 88 16 138/83 08/31/22 07:29 81 08/31/22 07:29 36.7 C 86 18 08/31/22 03:24 36.8 C 81 22 08/31/22 02:16 88 142/81 H 08/31/22 01:23 08/31/22 01:02 36.9 C 90 20 151/89 H 08/30/22 23:04 36.8 C 89 20 08/31/22 00:13 36.7 C 91 H 14 133/94 08/30/22 23:13 36.8 C 93 H 12 130/80 BP Pulse Ox O2 Del Method O2 Flow Rate 08/31/22 10:34 98 Nasal Cannula 2 08/31/22 07:29 08/31/22 07:29 138/95 100 Nasal Cannula 2 08/31/22 03:24 130/89 91 Nasal Cannula 08/31/22 02:16 08/31/22 01:23 Nasal Cannula 2 08/31/22 01:02 95 2 08/30/22 23:04 123/89 95 Nasal Cannula 08/31/22 00:13 98 2 08/30/22 23:13 96 2
--- NOTE | 2022-08-31 11:34 | GI REPORT ---
Patient Name: Judosn Bowie Procedure Date: 08/31/2022 11:06 AM Date of : 1965 Admit Type: Inpatient Age: 56 Gender: Male Attending MD: Danita Mckenzie MD, Procedure: Upper GI endoscopy Providers: Danita Mckenzie MD Referring MD: Dragan Villatoro Md Indications: Anemia Medicines: Propofol per Anesthesia Complications: No immediate complications. Estimated Blood Loss: Estimated blood loss: none. Procedure: Pre-Anesthesia Assessment: - Prior to the procedure, a History and Physical was performed, and patient medications, allergies and sensitivities were reviewed. The patient's tolerance of previous anesthesia was reviewed. - The risks and benefits of the procedure and the sedation options and risks were discussed with the patient. All questions were answered and informed consent was obtained. - Patient identification and proposed procedure were verified prior to the procedure by the physician and the nurse. The procedure was verified in the procedure room. - Pre-procedure physical examination revealed no contraindications to sedation. After obtaining informed consent, the endoscope was passed under direct vision. Throughout the procedure, the patient's blood pressure, pulse, and oxygen saturations were monitored continuously. The Endoscope was introduced through the mouth, and advanced to the second part of duodenum. The upper GI endoscopy was accomplished without difficulty. The patient tolerated the procedure well. Findings: The examined esophagus was normal. The entire examined stomach was normal. Two 8 mm sessile polyps were found in the second portion of the duodenum. Biopsies were taken with a cold forceps for histology. Verification of patient identification for the specimen was done by the physician and nurse using the patient's name and date. Impression: - No evidence of UGI bleeding. - Normal esophagus. - Normal stomach. - Two duodenal polyps, likely hyperplastic. Biopsied. Recommendation: - Await pathology results. Danita Mceknzie MD 08/31/2022 11:34:01 AM This report has been signed electronically. Note Initiated On: 08/31/2022 11:06 AM Number of Addenda: 0 I attest to the content of the Intraoperative Record and orders documented therein, exceptions below {[id number]}
--- NOTE | 2022-08-31 11:36 | Gastroenterology Progress Note ---
Date of Service August 31, 2022 Assessment & Plan Admission and Anticipated Discharge Date Admission Date: August 29, 2022 Subjective EGD done with no significant pathology or GI bleeding. Colonoscopy was not performed as patient had a large dark solid BM upon positioning him indicating poor bowel prep. Recommend: Give additional 4 liters of bowel prep today and plan for colonoscopy tomorrow. Results & Data ([facility]) Vital Signs (Past 12 Hours) Vital Signs Temp Pulse Pulse Pulse Resp BP BP 08/31/22 10:34 36.1 C L 88 16 138/83 08/31/22 07:29 81 08/31/22 07:29 36.7 C 86 18 08/31/22 03:24 36.8 C 81 22 08/31/22 02:16 88 142/81 H 08/31/22 01:23 08/31/22 01:02 36.9 C 90 20 151/89 H 08/31/22 00:13 36.7 C 91 H 14 133/94 BP Pulse Ox O2 Del Method O2 Flow Rate 08/31/22 10:34 98 Nasal Cannula 2 08/31/22 07:29 08/31/22 07:29 138/95 100 Nasal Cannula 2 08/31/22 03:24 130/89 91 Nasal Cannula 08/31/22 02:16 08/31/22 01:23 Nasal Cannula 2 08/31/22 01:02 95 2 08/31/22 00:13 98 2
--- NOTE | 2022-08-31 12:34 | Anesthesiology Progress Note ---
Date of Service August 31, 2022 Anesthesia Post Procedure Vital Signs Vital Signs: Temp Pulse Pulse Pulse Resp BP BP 08/31/22 12:13 93 H 20 176/102 H 08/31/22 11:58 97 H 20 166/97 H 08/31/22 11:43 36.1 C L 97 H 97 H 21 161/81 H 08/31/22 10:34 36.1 C L 88 16 138/83 08/31/22 07:29 81 08/31/22 07:29 36.7 C 86 18 08/31/22 03:24 36.8 C 81 22 08/31/22 02:16 88 142/81 H 08/31/22 01:23 08/31/22 01:02 36.9 C 90 20 151/89 H 08/30/22 23:04 36.8 C 89 20 08/31/22 00:13 36.7 C 91 H 14 133/94 08/30/22 23:13 36.8 C 93 H 12 130/80 08/30/22 22:43 36.7 C 94 H 15 111/81 08/30/22 22:28 36.9 C 92 H 14 112/89 08/30/22 22:12 36.8 C 88 18 122/83 08/30/22 19:25 36.7 C 86 22 08/30/22 19:17 90 21 08/30/22 17:00 92 H 08/30/22 16:02 37.1 C 95 H 22 BP Pulse Ox O2 Del Method O2 Flow Rate FiO2 08/31/22 12:13 96 Nasal Cannula 2 08/31/22 11:58 93 Nasal Cannula 2 08/31/22 11:43 95 Nasal Cannula 2 08/31/22 10:34 98 Nasal Cannula 2 08/31/22 07:29 08/31/22 07:29 138/95 100 Nasal Cannula 2 08/31/22 03:24 130/89 91 Nasal Cannula 08/31/22 02:16 08/31/22 01:23 Nasal Cannula 2 08/31/22 01:02 95 2 08/30/22 23:04 123/89 95 Nasal Cannula 08/31/22 00:13 98 2 08/30/22 23:13 96 2 08/30/22 22:43 97 2 08/30/22 22:28 98 2 08/30/22 22:12 98 2 08/30/22 19:25 121/72 97 BiPAP 08/30/22 19:17 96 30 08/30/22 17:00 08/30/22 16:02 117/74 95 BiPAP Pain Intensity Generalized: Pain Intensity: 6 Transfer of Care Handoff Completed per policy Notes Mental Status: alert / awake / arousable and participated in evaluation Patient Amnestic to Procedure: Yes Nausea / Vomiting: adequately controlled Pain: adequately controlled Airway Patency, RR, SpO2: stable & adequate BP & HR: stable & adequate Hydration State: stable & adequate Anesthetic Complications: no major complications apparent and Pt Satisfied with anesthetic care
[2022-08-31 16:27] LABS: Hematocrit (blood only) 25.8 % (40.1-51.0); Hemoglobin 8.1 g/dl (14.0-18.0)
[2022-08-31] MEDS ORDERED: METOPROLOL TARTRATE 1 MG/ML VIAL IV PRN (16:39)
[2022-08-31] MEDS ORDERED: LAVAGE SOLUTION 4000ML PO SCH (17:00)
[2022-09-01] MEDS: HYDROCORTISONE SOD 50 MG in SYRINGE 0 ML IV SCH ×2 (01:00→06:21)
[2022-09-01 04:52] LABS: BUN Creatinine Ratio 17.9 (10-20); Calcium 7.9 mg/dl (8.5-10.1); Creatinine Clr Calc Pharmacy 49.4 ml/min; Est GFR (African American) 24.5 ml/min; Est GFR (Non-African American) 21.2 ml/min; Magnesium 2.1 mg/dl (1.7-2.4); Phosphorus 6.3 mg/dl (2.5-4.9); Potassium 4.9 mmol/L (3.5-5.1)
--- NOTE | 2022-09-01 08:00 | Hospitalist Progress Note ---
Date of Service September 01, 2022 Assessment & Plan (1) Encephalopathy: Plan: Multifactorial : Respiratory failure, possible OHS, untreated RUTH (patient still has to go for a sleep study as per .) Acute on chronic anemia secondary to L GIB rule out C. difficile ARF on CKD Rule out UTI, possible sepsis Troponin elevation secondary to illness Encephalopathy resolved Continues to use suppl. O2 via NC Needs to use bipap given OHS, RUTH Pulmonary consult Re: Respiratory failure, probable RUTH, appreciate their input UA negative blood cultx - negat. for 48 hrs Anemia/ GI bleed FOBT pending + blood in stool stool studies, c. diff pending Received 4 units of pRBC thus far Anemia work-up, transfuse PRBC to maintain hemoglobin greater than 7 and or for symptomatic anemia IV PPI GI consulted s/p EGD Findings: The examined esophagus was normal. The entire examined stomach was normal. Two 8 mm sessile polyps were found in the second portion of the duodenum. Biopsies were taken with a cold forceps for histology. Verification of patient identification for the specimen was done by the physician and nurse using the patient's name and date. Impression: - No evidence of UGI bleeding. - Normal esophagus. - Normal stomach. - Two duodenal polyps, likely hyperplastic. Biopsied. Recommendation: - Await pathology results. s/p Colonoscopy Findings: The perianal and digital rectal examinations were normal. The terminal ileum appeared normal. A 10 mm polyp was found in the rectum. The polyp was sessile. The polyp was removed with a cold snare. Resection and retrieval were complete. Verification of patient identification for the specimen was done by the physician and nurse using the patient's name and date. To prevent bleeding after the polypectomy, three hemostatic clips were successfully placed (MR conditional). Scattered small and large-mouthed diverticula were found in the sigmoid colon. Non-bleeding internal hemorrhoids were found during retroflexion. The hemorrhoids were small. Impression: - Preparation of the colon was fair. - The examined portion of the ileum was normal. - One 10 mm polyp in the rectum, removed with a cold snare. Resected and retrieved. Clips (MR conditional) were placed. - Diverticulosis in the sigmoid colon. - Non-bleeding internal hemorrhoids. Recommendation: - Return patient to [facility] for ongoing care. - Advance diet as tolerated. - Await pathology results. - Repeat colonoscopy in 5 years for surveillance. - Recall GI if needed. COMMENT: No evidence of GI bleeding, consider Hematology evaluation. 09/01 Peripheral smear ordered, and Hematology consulted CHERYL Starks catheter now, baseline UA, monitor creatinine response to IVF CT abd/ pelvis - abnormal imaging of kidneys Of note patient reports having CHERYL and being hospitalized for it in [place] Renal ultrasound ordered, nephrology consulted, appreciate their input 1. No renal calculi, hydronephrosis or solid renal mass lesions identified by ultrasound. Please note however that the study is limited secondary to patient body habitus. 2. Bilateral simple and complex renal cysts. 3. Bilateral diffuse cortical thinning with decreased corticomedullary differentiation compatible with chronic medical renal disease. Elevated troponin -secondary to illness above, no chest pain Echo ordered Hyperglycemia -likely prediabetes, hemoglobin A1c of 5.31 July 2022 as per outpatient records - monitor blood sugar while inpt Ongoing tobacco abuse - counseling Nicotine patch Hypertension, stable Hyperlipidemia, statin noncompliance morbid obesity hx gout/rheumatoid arthritis chronic back pain medication noncompliance as per records DVT prophylaxis. SCDs Re: GI bleed Full code Mrs. Rima Bowie - contact # [phone]. Admission and Anticipated Discharge Date Admission Date: August 29, 2022 Subjective Pt seen in follow up of anemia, GI bleed, resp. failure Pt w/ morbid obesity, obesity hypovent. syndrome required bipap, now on NC awake and able to answer questions appropriately S/p EGD yesterday and s/p colonoscopy today Denies abdominal pain. Denies fevers chills, chest pain, shortness of breath, nausea vomiting. Also reports history of CHERYL when he was in the hospital in [place] Per RN, patient came from endoscopy and wanted to advance his diet immediately. Per GI recommendations, advance as tolerated. Review of Systems Review of Systems: All systems reviewed & are unremarkable except as noted in Subjective Physical Exam Physical Exam: Constitutional: Morbidly obese M in NAD, on NC Eyes: EOMI, PERRL. Conjunctivae are normal. Anicteric sclera. Neck: thick short neck Respiratory: No use of accessory muscles.Minimal crackles, no wheezing Cardiovascular: Regular rate and rhythm. No murmurs. No edema. Gastrointestinal: Normal bowel sounds, soft, obese nontender and nondistended. : Starks catheter placed Musculoskeletal: Moves all extremities. Skin: No rashes, warm dry and intact. Neurologic: Speech fluent. Follows commands. Answers appropriately. Results & Data Results & Data ([facility]) Vital Signs (Past 12 Hours) Vital Signs Temp Pulse Pulse Resp BP Pulse Ox O2 Del Method 09/01/22 07:46 79 09/01/22 02:30 93 H 19 97 09/01/22 02:58 36.6 C 87 16 152/111 H 100 BiPAP 09/01/22 00:48 BiPAP 08/31/22 23:11 36.9 C 90 19 131/102 H 96 BiPAP 08/31/22 22:35 16 97 FiO2 09/01/22 07:46 09/01/22 02:30 50 09/01/22 02:58 09/01/22 00:48 08/31/22 23:11 08/31/22 22:35 50 Laboratory Results 09/01/22 09/01/22 09/01/22 Range/Units 07:29 04:06 04:06 WBC Cancelled RBC Cancelled Hgb Cancelled (14.0-18.0) g/dl Hct Cancelled (40.1-51.0) % MCV Cancelled MCH Cancelled MCHC Cancelled RDW Std Deviation Cancelled RDW Coeff of Cheryl Cancelled Plt Count Cancelled MPV Cancelled Absolute Nucleated RBC Cancelled Nucleated RBC % (auto) Cancelled Platelet Estimate Cancelled Sodium 141 (136-145) mmol/L Potassium 4.9 (3.5-5.1) mmol/L Chloride 106 (98-107) mmol/L Carbon Dioxide 24 (21-32) mmol/L Anion Gap 11 (3-11) BUN 56 H (6-23) mg/dl Creatinine 3.12 H D (0.6-1.4) mg/dl Est Cr Clr Drug Dosing 49.4 ml/min Est GFR ( Amer) 24.5 ml/min Est GFR (Non-Af Amer) 21.2 ml/min BUN/Creatinine Ratio 17.9 (10-20) Glucose 133 H (70-99(Fasting)) mg/dl POC Glucose 90 (70-99) mg/dl Calcium 7.9 L (8.5-10.1) mg/dl Phosphorus 6.3 H (2.5-4.9) mg/dl Magnesium 2.1 (1.7-2.4) mg/dl Total Bilirubin (0.2-1.0) mg/dl AST (13-39) U/L ALT (7-52) U/L Alkaline Phosphatase (34-104) U/L Total Protein (6.0-8.3) gm/dl Albumin (3.4-5.0) gm/dl Globulin (2.5-4.0) gm/dl Albumin/Globulin Ratio (0.9-2) Crossmatch 08/31/22 08/31/22 08/31/22 Range/Units 20:06 17:45 16:29 WBC RBC Hgb (14.0-18.0) g/dl Hct (40.1-51.0) % MCV MCH MCHC RDW Std Deviation RDW Coeff of Cheryl Plt Count MPV Absolute Nucleated RBC Nucleated RBC % (auto) Platelet Estimate Sodium (136-145) mmol/L Potassium (3.5-5.1) mmol/L Chloride (98-107) mmol/L Carbon Dioxide (21-32) mmol/L Anion Gap (3-11) BUN (6-23) mg/dl Creatinine (0.6-1.4) mg/dl Est Cr Clr Drug Dosing ml/min Est GFR ( Amer) ml/min Est GFR (Non-Af Amer) ml/min BUN/Creatinine Ratio (10-20) Glucose (70-99(Fasting)) mg/dl POC Glucose 153 H 227 H 251 H (70-99) mg/dl Calcium (8.5-10.1) mg/dl Phosphorus (2.5-4.9) mg/dl Magnesium (1.7-2.4) mg/dl Total Bilirubin (0.2-1.0) mg/dl AST (13-39) U/L ALT (7-52) U/L Alkaline Phosphatase (34-104) U/L Total Protein (6.0-8.3) gm/dl Albumin (3.4-5.0) gm/dl Globulin (2.5-4.0) gm/dl Albumin/Globulin Ratio (0.9-2) Crossmatch 08/31/22 08/31/22 08/29/22 Range/Units 16:20 06:57 03:02 WBC RBC Hgb 8.1 L (14.0-18.0) g/dl Hct 25.8 L (40.1-51.0) % MCV MCH MCHC RDW Std Deviation RDW Coeff of Cheryl Plt Count MPV Absolute Nucleated RBC Nucleated RBC % (auto) Platelet Estimate Sodium 138 (136-145) mmol/L Potassium 4.5 (3.5-5.1) mmol/L Chloride 102 (98-107) mmol/L Carbon Dioxide 27 (21-32) mmol/L Anion Gap 9 (3-11) BUN 58 H (6-23) mg/dl Creatinine 3.66 H (0.6-1.4) mg/dl Est Cr Clr Drug Dosing 42.1 ml/min Est GFR ( Amer) 20.2 ml/min Est GFR (Non-Af Amer) 17.5 ml/min BUN/Creatinine Ratio 15.8 (10-20) Glucose 135 H (70-99(Fasting)) mg/dl POC Glucose (70-99) mg/dl Calcium 8.2 L (8.5-10.1) mg/dl Phosphorus 5.9 H (2.5-4.9) mg/dl Magnesium 2.1 (1.7-2.4) mg/dl Total Bilirubin 0.5 (0.2-1.0) mg/dl AST 12 L (13-39) U/L ALT 11 (7-52) U/L Alkaline Phosphatase 55 (34-104) U/L Total Protein 5.6 L (6.0-8.3) gm/dl Albumin 2.8 L (3.4-5.0) gm/dl Globulin 2.8 (2.5-4.0) gm/dl Albumin/Globulin Ratio 1.0 (0.9-2) Crossmatch See Detail Medications Administered Current Inpatient Medications Acetaminophen (Acetaminophen 325 Mg Tab) 650 mg PO Q4H PRN PRN Reason: Pain or Fever Stop: 09/28/22 07:58 Last Admin: 08/30/22 04:27 Dose: 650 mg Sodium Chloride (Nss 1000ml) 1,000 mls @ 80 mls/hr IV .[id number] [facility] Stop: 09/28/22 22:29 Last Infusion: 08/31/22 17:50 Dose: Infused Pantoprazole Sodium 40 mg/ (Syringe) 10 mls @ 5 mls/min IV BID [facility] Stop: 09/28/22 22:29 Last Admin: 08/31/22 20:19 Dose: 5 mls/min Cefepime HCl 2,000 mg/ Syringe 20 mls @ 5 mls/min IV Q12H [facility]; Protocol Stop: 09/01/22 09:59 Last Admin: 08/31/22 20:19 Dose: 5 mls/min Hydrocortisone Sodium (Succinate 25 mg/ Syringe) 0.5 mls @ 4 mls/min IV Q6H [facility] Stop: 10/01/22 11:59 Metoprolol Tartrate (Metoprolol Tartrate 1 Mg/Ml Vial) 2.5 mg IV Q6H PRN PRN Reason: HR > 110 Stop: 09/28/22 11:59 Verapamil HCl (Verapamil Hcl 240 Mg Tabcr) [facility] Stop: 09/28/22 08:59 Last Admin: 08/31/22 16:45 Dose: 240 mg
[2022-09-01] MEDS ORDERED: SODIUM CHLORIDE 0.9% 1000ML 500 ML IV ONE (08:33)
[2022-09-01] MEDS: VERAPAMIL HCL 240 MG TABCR PO SCH (08:44)
[2022-09-01] MEDS: PANTOprazole 40 MG in SYRINGE 0 ML IV SCH ×3 (08:48→19:58)
[2022-09-01 08:58] LABS: Hematocrit (blood only) 24.5 % (40.1-51.0); Hemoglobin 7.7 g/dl (14.0-18.0); Mean Corpuscular Hemoglobin 29.6 pg (25.0-34.0); Mean Corpuscular Hgb Conc 31.4 g/dL (32.0-36.0); Mean Corpuscular Volume 94.2 fL (80.0-100.0); Mean Platelet Volume 10.4 fL (9.4-12.4); Nucleated RBC # (auto) 0.07 K/uL (0-0); Nucleated RBC % (auto) 0.6 %; Platelet Count 185 K/uL (130-400); RDW Coefficient of Variation 14.8 % (11.5-14.5); RDW Standard Deviation 51.2 fL (36.4-46.3); White Blood Count 11.58 K/ul (4.8-10.8)
--- NOTE | 2022-09-01 09:18 | Nephrology Progress Note ---
Date of Service September 01, 2022 Assessment & Plan Admission and Anticipated Discharge Date Admission Date: August 29, 2022 Subjective [facility], [id number] Subjective S--getting [place] today again. had EGD and no gi bleeding noted. Done for Low Hgb/GI bleed. urine 1100 ml yesterday --improved. PHYSICAL EXAMINATION: GENERAL: A middle-aged white male who is morbidly obese. He is awake, alert, oriented x3, able to give me a pretty detailed account of his medical problem, but he does appear to be in somewhat of a discomfort from pain in the back. HEENT: Mucous membrane is moist. NECK: Supple. No JVD. CHEST: Bilateral clear to auscultation. Decreased breath sounds, secondary to poor inspiratory effort. CARDIOVASCULAR: S1 and S2, regular. ABDOMEN: Soft, nontender. EXTREMITIES: Show no edema. LABORATORY TEST: Creatinine trended down ASSESSMENT AND PLAN: A 56-year-old male who presented to the hospital with severe anemia with a hemoglobin of 5.9, presumably secondary to GI bleed, which he had as an outpatient. Most of his symptoms can be explained by GI bleed with severe anemia. I have been consulted for acute renal failure. Acute renal failure,most likely there is some degree of acute tubular ischemia given the sudden drop in hemoglobin down to the 5 range. He also has chronic respiratory failure, which makes him very susceptible to hypoxic injury to renal tubules and especially in the setting of acute blood loss anemia. He has been getting fluids and for the time being, I would continue with the fluid at least for another 24 hours, but he does not appear to be really volume depleted. His creatinine is still rising, so we do not know the full extent of the renal tubular injury. It seems the patient is quite susceptible to acute renal failure and he has had episodes in the past, but not needed dialysis. I would continue to support his hemodynamic status, especially his oxygen level and continue with the BiPAP. Potassium is only borderline high and should come down as the renal failure improves, no further workup is needed for the acute renal failure. We have already ruled out hydronephrosis. rec: 1 ARF sec to ATN. Creat peaked and now trending down with increasing urine output. So the worst is over. 2 Daily labs. 3 Avoid Low o2 or low BP given low hgb and Chronic resp failure. 4 He feels fluid retention. may have to give some lasix tomorrow. Results & Data ([facility]) Vital Signs (Past 12 Hours) Vital Signs Temp Pulse Pulse Resp BP Pulse Ox O2 Del Method 09/01/22 08:00 36.8 C 87 18 152/92 H 98 BiPAP 09/01/22 07:46 79 09/01/22 02:30 93 H 19 97 09/01/22 02:58 36.6 C 87 16 152/111 H 100 BiPAP 09/01/22 00:48 BiPAP 08/31/22 23:11 36.9 C 90 19 131/102 H 96 BiPAP 08/31/22 22:35 16 97 O2 Flow Rate FiO2 09/01/22 08:00 50 09/01/22 07:46 09/01/22 02:30 50 09/01/22 02:58 09/01/22 00:48 08/31/22 23:11 08/31/22 22:35 50
--- NOTE | 2022-09-01 09:21 | Anesthesiology Consultation ---
Date of Service September 01, 2022 Assessment & Plan (1) Encounter for pre-operative examination: Chart Review Chart Review: Acceptable Risk for Surgery and Patient NOT seen in Pre Admission Testing Consults Requested none History Surgery Operation Date: 08/31/22 16:45 Proposed Procedures p Colonoscopy EGD Dr. Jonah Mckenzie MD Operation Date: 09/01/22 16:30 Proposed Procedures p Colonoscopy Dr Jonah Mckenzie MD Height/Weight Height: 6 ft 3 in Weight: 207.8 kg Allergies Allergy/AdvReac Type Severity Reaction Status Date / Time Iodinated Contrast Media Allergy Hives Verified 08/31/22 10:32 iodine Allergy Hives Verified 08/31/22 10:32 Medications Home Medications Medication Instructions Recorded Confirmed Last Taken carvedilol 6.25 mg tablet 12.5 mg PO AMHS 08/29/22 08/29/22 08/28/22 verapamil 240 mg 24 hr 240 mg PO QAM 08/29/22 08/29/22 08/28/22 capsule,extended release Active Medications Generic Name Dose Route Start Last Admin Trade Name Freq PRN Reason Stop Dose Admin Acetaminophen 650 mg 08/29/22 07:59 08/30/22 04:27 Acetaminophen 325 Mg Tab PO 09/28/22 07:58 650 mg Q4H PRN Administration Pain or Fever Pantoprazole Sodium 40 mg/ 10 mls @ 5 mls/min 08/29/22 22:30 08/31/22 20:19 Syringe IV 09/28/22 22:29 5 mls/min BID STACY Administration Cefepime HCl 2,000 mg/ Syringe 20 mls @ 5 mls/min 08/30/22 10:00 08/31/22 20:19 IV 09/01/22 09:59 5 mls/min Q12H STACY Administration Protocol Verapamil HCl 240 mg 08/29/22 09:00 09/01/22 08:44 Verapamil Hcl 240 Mg Tabcr PO 09/28/22 08:59 240 mg QAM STACY Administration NPO Date Last Intake of Fluids: 08/30/22 Time Last Intake of Fluids: 23:30 Date Last Intake of Solids: 08/29/22 Time Last Intake of Solids: 23:59 Past Medical History Medical History CHERYL (acute kidney injury) Anemia Morbid obesity Obesity hypoventilation syndrome Social History Smoking Status: Never smoker Hx Alcohol Use: No Hx Substance Use: No Physical Exam Vital Signs Last Vital Signs Temp 36.8 C 09/01/22 08:00 Pulse 87 09/01/22 08:00 Resp 18 09/01/22 08:00 BP 152/92 H 09/01/22 08:00 Pulse Ox 98 09/01/22 08:00 O2 Del Method 09/01/22 08:00 O2 Flow Rate 50 09/01/22 08:00 FiO2 50 09/01/22 02:30 Testing Laboratory Results 09/01/22 08:45 09/01/22 04:06 PT 11.0 Seconds (9.0-12.0) 08/29/22 01:14 INR 1.0 (0.9-1.1) 08/29/22 01:14 Hemoglobin A1c 5.6 % (4.5-5.6) 08/29/22 07:18 Urine Color Yellow 08/30/22 03:00 Urine Appearance Clear (Clear) 08/30/22 03:00 Urine pH 5.0 (4.5-7.5) 08/30/22 03:00 Ur Specific [place] 1.014 (1.000-1.030) 08/30/22 03:00 Urine Protein Negative (Negative) 08/30/22 03:00 Urine Glucose (UA) Negative (Negative) 08/30/22 03:00 Urine Ketones Trace (Negative) H 08/30/22 03:00 Urine Nitrite Negative (Negative) 08/30/22 03:00 Ur Leukocyte Esterase Negative (Negative) 08/30/22 03:00 Blood Type O Negative 08/29/22 03:02 Antibody Screen NEGATIVE 08/29/22 03:02 08/29/22 10:41 Aerobic Blood Culture - Preliminary Blood No growth in Aerobic bottle after 48 hours. Anaerobic Blood Culture - Preliminary No growth in Anaerobic bottle after 48 hours. 08/29/22 07:18 Aerobic Blood Culture - Preliminary Blood No growth in Aerobic bottle after 48 hours. Anaerobic Blood Culture - Preliminary No growth in Anaerobic bottle after 48 hours. 09/01/22 07:29 POC Glucose 90
[2022-09-01] MEDS ORDERED: LIDOCAINE 2% MPF LOCAL 5 ML VIAL INFIL ONE (10:57)
[2022-09-01] MEDS ORDERED: KETAMINE 50 MG/5 ML SYRINGE ONE (10:57)
[2022-09-01] MEDS ORDERED: PROPOFOL IV EMULSION 10 MG/ML 20 ML VIAL IV ONE ×2 (10:57→11:59)
[2022-09-01] MEDS ORDERED: GLYCOPYRROLATE 0.2 MG/ML VIAL ONE (10:59)
--- NOTE | 2022-09-01 11:27 | History & Physical Bridge Note ---
Date of Service September 01, 2022 History & Physical Bridge Note I have examined the patient, reviewed the History & Physical and in the interval since the performance of the History & Physical I have noted the following changes of clinical significance: no changes noted Colonoscopy Patient was explained in detail regarding risks, benefits, limitations and alternatives of the above endoscopic procedure. Risks of intravenous sedation used for procedure were also explained. Risks include, but not limited to pe rforation, bleeding, infection, respiratory distress, cardiac arrest and . Patient is also aware about the possibility of missed lesion. Patient's questions were answered. The patient verbalized understanding the information and agreed to undergo the procedure.
--- NOTE | 2022-09-01 12:03 | GI REPORT ---
Patient Name: Judson Bowie Procedure Date: 09/01/2022 11:30 AM Date of : 1965 Admit Type: Inpatient Age: 56 Gender: Male Attending MD: Danita Mckenzie MD, Procedure: Colonoscopy Providers: Danita Mckenzie MD Referring MD: Dragan Villatoro Md Indications: Anemia Medicines: Propofol per Anesthesia Complications: No immediate complications. Estimated Blood Loss: Estimated blood loss: none. Procedure: Pre-Anesthesia Assessment: - Prior to the procedure, a History and Physical was performed, and patient medications, allergies and sensitivities were reviewed. The patient's tolerance of previous anesthesia was reviewed. - The risks and benefits of the procedure and the sedation options and risks were discussed with the patient. All questions were answered and informed consent was obtained. - Patient identification and proposed procedure were verified prior to the procedure by the physician and the nurse. The procedure was verified in the procedure room. - Pre-procedure physical examination revealed no contraindications to sedation. After I obtained informed consent, the scope was passed under direct vision. Throughout the procedure, the patient's blood pressure, pulse, and oxygen saturations were monitored continuously. The Scope was introduced through the anus and advanced to the terminal ileum. The colonoscopy was performed without difficulty. The patient tolerated the procedure well. The quality of the bowel preparation was fair. The terminal ileum, ileocecal valve, appendiceal orifice, and rectum were photographed. Findings: The perianal and digital rectal examinations were normal. The terminal ileum appeared normal. A 10 mm polyp was found in the rectum. The polyp was sessile. The polyp was removed with a cold snare. Resection and retrieval were complete. Verification of patient identification for the specimen was done by the physician and nurse using the patient's name and date. To prevent bleeding after the polypectomy, three hemostatic clips were successfully placed (MR conditional). Scattered small and large-mouthed diverticula were found in the sigmoid colon. Non-bleeding internal hemorrhoids were found during retroflexion. The hemorrhoids were small. Impression: - Preparation of the colon was fair. - The examined portion of the ileum was normal. - One 10 mm polyp in the rectum, removed with a cold snare. Resected and retrieved. Clips (MR conditional) were placed. - Diverticulosis in the sigmoid colon. - Non-bleeding internal hemorrhoids. Recommendation: - Return patient to [facility] for ongoing care. - Advance diet as tolerated. - Await pathology results. - Repeat colonoscopy in 5 years for surveillance. - Recall GI if needed. COMMENT: No evidence of GI bleeding, consider Hematology evaluation. Danita Mckenzie MD 09/01/2022 12:03:08 PM This report has been signed electronically. Note Initiated On: 09/01/2022 11:30 AM Number of Addenda: 0 I attest to the content of the Intraoperative Record and orders documented therein, exceptions below {[id number]}
--- NOTE | 2022-09-01 12:29 | Anesthesiology Progress Note ---
Date of Service September 01, 2022 Anesthesia Post Procedure Vital Signs Vital Signs: Temp Pulse Pulse Pulse Pulse Resp BP 09/01/22 12:16 78 22 09/01/22 12:01 75 22 09/01/22 10:44 36 C L 76 22 09/01/22 08:00 36.8 C 87 18 09/01/22 07:46 79 09/01/22 02:30 93 H 19 09/01/22 02:58 36.6 C 87 16 09/01/22 00:48 08/31/22 23:11 36.9 C 90 19 08/31/22 22:35 16 08/31/22 19:26 36.8 C 93 H 22 08/31/22 15:30 99 H 08/31/22 15:19 36.6 C 99 H 22 08/31/22 13:21 88 20 08/31/22 12:48 93 H 172/102 H 08/31/22 12:42 36.7 C 93 H 20 BP BP Pulse Ox O2 Del Method O2 Flow Rate FiO2 09/01/22 12:16 109/67 97 Nasal Cannula 3 09/01/22 12:01 116/69 96 Nasal Cannula 3 09/01/22 10:44 113/83 96 Nasal Cannula 2 09/01/22 08:00 152/92 H 98 BiPAP 50 09/01/22 07:46 09/01/22 02:30 97 50 09/01/22 02:58 152/111 H 100 BiPAP 09/01/22 00:48 BiPAP 08/31/22 23:11 131/102 H 96 BiPAP 08/31/22 22:35 97 50 08/31/22 19:26 164/99 H 92 Nasal Cannula 2 08/31/22 15:30 08/31/22 15:19 167/99 H 92 Nasal Cannula 3.5 08/31/22 13:21 161/92 H 92 Nasal Cannula 2 08/31/22 12:48 08/31/22 12:42 172/102 H 97 Nasal Cannula 2 Pain Intensity Generalized: Pain Intensity: 2 Transfer of Care Handoff Completed per policy Notes Mental Status: alert / awake / arousable Patient Amnestic to Procedure: Yes Nausea / Vomiting: adequately controlled Pain: adequately controlled Airway Patency, RR, SpO2: stable & adequate BP & HR: stable & adequate Hydration State: stable & adequate Anesthetic Complications: no major complications apparent and Pt Satisfied with anesthetic care
[2022-09-01] MEDS: CEFEPIME 2,000 MG in SYRINGE 0 ML IV SCH ×2 (13:03→19:58)
[2022-09-01] MEDS: HYDROCORTISONE SOD 25 MG in SYRINGE 0 ML IV SCH ×2 (13:21→17:24)
[2022-09-01] MEDS ORDERED: FUROSEMIDE INJ 20 MG/2 ML VIAL IV ONE (15:03)
--- NOTE | 2022-09-01 19:12 | Consultation ---
Date of Consultation September 01, 2022 Assessment & Plan (1) Anemia: Patient presents with a hypoproductive normo to mildly macrocytic anemia with significantly inappropriately low ferritin level but stable B12, folate, and TSH. Long-term iron deficiency would usually produce a microcytosis but he describes significant ongoing recent GI losses and thus this may represent a more acutely evolving anemia largely reflecting short-term large volume blood loss and thus the remaining population of redcells having been produced at a time of iron repletion may not yet be microcytic. Gastroenterology has not been able to identify a bleeding source as of yet. There is no personal or family history to suggest a bleeding disorder and indeed he has not had any major bleeding issues requiring transfusion or of other hemostatic concerns with previous operative procedures nor is there any family history to suggest von Willebrand's disease, hemophilia, or other bleeding disorder. We do note that his prothrombin time was normal. Normal bilirubin along with the very low reticulocyte count even with hemoglobin less than 6 excludes any pathological hemolysis. His white cells are frankly mildly elevated, likely as a reactive phenomenon (mild monocytosis will be further evaluated by pathology smear review tomorrow morning but is probably nonspecific) and platelets are in good range overall suggesting against any dramatic low marrow dysfunction. In short, he seems to have a combination of significant GI blood loss and iron deficiency which is impairing his ability to respond with replacement erythropoiesis. Immediate priority will be additional attempts to identify and rectify the source of GI losses and in the short-term transfusion to maintain hemoglobin levels in the 7 to 8 g/dL range. Eacxh PRBC transfusion brings with it the equivalent of a 200 mg iron infusion. We should consider additional intravenous iron in time but we may want to wait until he has stabilized from a blood loss perspective at which point we can reassess his ferritin, calculate his iron deficit, and give more specific recommendations for the amount of iron to infuse. While his folic acid levels were stable, he will rapidly deplete that as he attempts to get her up erythropoiesis so empiric folic acid supplementation was worthwhile as well. While iron deficiency and blood loss seem to be the major elements of anemia, we note that his renal insufficiency both itself produces a relative erythropoietin deficiency further exacerbating his anemia and with the azotemia there may be impairment of platelet function exacerbating his bleeding. Nephrology is on board and helping to improve renal function as best as is possible. If there has been an element of sepsis that may impair recovery of erythropoiesis as well While the lack of microcytosis can probably be explained as above, we cannot completely exclude a concomitant myelodysplastic or other more subtle marrow dysfunction that he is tilting him towards a more macrocytic red cell population. In the absence of immediately pathologically identifiable forms in the peripheral circulation and again within intact production of white cells and platelets, marrow evaluation is not going to help with immediate management and can be deferred to be reconsidered if he has persistent abnormalities even after more complete iron repletion and stabilization of renal status. Plan 1. Aggressive attempts to identify and rectify GI bleeding 2. Optimize renal function 3. Empiric folic acid supplementation 4. In the short-term would continue to support with PRBC transfusion and as he stabilizes, reassess ferritin levels and from that we can calculate ongoing iron deficit to guide additional intravenous iron replacement 5. Await pathologist review of peripheral smear but unless there are clear significant pathologic forms identified by that, marrow aspiration and biopsy are not going to impact on short-term management recommendations and will be deferred for reassessment once he is more stable History of Present Illness Reason for Consultation: Asked to further comment on patient presenting with acute anemia and GI bleed. Attending Physician: Dragan Villatoro MD History of Present Illness Patient with significant multiple medical issues particularly focused on morbid obesity with obstructive sleep apnea and recurrent issues of respiratory, he also has renal insufficiency. Patient recently moved here from [place] and is very limited because there several occasions primarily for respiratory challenges. Be specifically admitted on this occasion for hemoglobin of 5.9, acute renal insufficiency, bloody diarrhea, and possible urosepsis. He has had multiple transfusions since admission and hemoglobin is now in the 7-8 range though does not seem to be dramatically rising further. Upper and lower endoscopic studies are relatively unremarkable other than to note a 10 mm polyp, diverticulosis, and a nonbleeding internal hemorrhoid but without clear identification of a bleeding source. Patient has historically been on aspirin but his indicates he stopped that 1 month ago. He has a history of microscopic hematuria but is never had gross urological bleeding nor any major bleeding elsewhere including no significant hemorrhage associated with multiple previous surgical procedures. He is never required previous blood transfusions. There is no family history of bleeding disorder. He notes that his mother and multiple maternal aunts have had various cancers including colorectal cancer and breast cancer in his mother by his description. Is a former 1 pack/day smoker who is largely cut down to just several cigarettes a day but also does continue to vape. He has not a significant alcohol drinker. Allergies Allergy/AdvReac Type Severity Reaction Status Date / Time Iodinated Contrast Media Allergy Hives Verified 08/31/22 10:32 iodine Allergy Hives Verified 08/31/22 10:32 Home Medications Medication Instructions Recorded Confirmed Type carvedilol 6.25 mg tablet 12.5 mg PO AMHS 08/29/22 08/29/22 History verapamil 240 mg 24 hr 240 mg PO QAM 08/29/22 08/29/22 History capsule,extended release Patient History Medical History CHERYL (acute kidney injury) Anemia Morbid obesity Obesity hypoventilation syndrome Social History Smoking Status: Never smoker Hx Alcohol Use: No Hx Substance Use: No Preferred Language: Syrian Communication Ability: Unable 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 He is alert with nasal cannula in place and a pulse ox of 95%. He seems appropriate on conversation though with perhaps very subtle cognitive/memory changes. He has a significantly elevated BMI Lung sounds are decreased but do not seem to be focal changes, cardiac rhythm is regular Abdomen is grossly obese precluding the ability to define any unusual mass or organomegaly but does not seem to be grossly tender. He does not have dramatic bruising or petechiae noted peripherally. Results & Data ([facility]) Vital Signs (Past 12 Hours) Vital Signs Temp Pulse Pulse Pulse Resp BP BP 09/01/22 08:00 09/01/22 16:30 36.5 C 79 22 141/69 H 09/01/22 15:37 69 09/01/22 12:47 36.4 C L 72 20 133/95 09/01/22 12:31 73 22 119/73 09/01/22 12:16 78 22 109/67 09/01/22 12:01 75 22 116/69 09/01/22 10:44 36 C L 76 22 113/83 09/01/22 08:00 36.8 C 87 18 152/92 H 09/01/22 07:46 79 Pulse Ox O2 Del Method O2 Flow Rate 09/01/22 08:00 Nasal Cannula, BiPAP 09/01/22 16:30 95 Nasal Cannula 09/01/22 15:37 09/01/22 12:47 95 Nasal Cannula 2 09/01/22 12:31 95 Nasal Cannula 3 09/01/22 12:16 97 Nasal Cannula 3 09/01/22 12:01 96 Nasal Cannula 3 09/01/22 10:44 96 Nasal Cannula 2 09/01/22 08:00 98 BiPAP 50 09/01/22 07:46 Laboratory Results Abnormal lab results 08/29/22 08/31/22 09/01/22 Range/Units 03:02 20:06 04:06 WBC (4.8-10.8) K/ul RBC (4.63-6.08) M/uL Hgb (14.0-18.0) g/dl Hct (40.1-51.0) % MCHC (32.0-36.0) g/dL RDW Std Deviation (36.4-46.3) fL RDW Coeff of Cheryl (11.5-14.5) % Absolute Nucleated RBC (0-0) K/uL BUN 56 H (6-23) mg/dl Creatinine 3.12 H D (0.6-1.4) mg/dl Glucose 133 H (70-99(Fasting)) mg/dl POC Glucose 153 H (70-99) mg/dl Calcium 7.9 L (8.5-10.1) mg/dl Phosphorus 6.3 H (2.5-4.9) mg/dl Crossmatch See Detail 09/01/22 09/01/22 09/01/22 Range/Units 08:45 12:58 16:24 WBC 11.58 H (4.8-10.8) K/ul RBC 2.60 L (4.63-6.08) M/uL Hgb 7.7 L (14.0-18.0) g/dl Hct 24.5 L (40.1-51.0) % MCHC 31.4 L (32.0-36.0) g/dL RDW Std Deviation 51.2 H (36.4-46.3) fL RDW Coeff of Cheryl 14.8 H (11.5-14.5) % Absolute Nucleated RBC 0.07 H (0-0) K/uL BUN (6-23) mg/dl Creatinine (0.6-1.4) mg/dl Glucose (70-99(Fasting)) mg/dl POC Glucose 115 H 143 H (70-99) mg/dl Calcium (8.5-10.1) mg/dl Phosphorus (2.5-4.9) mg/dl Crossmatch Diagnostic Findings Chest X-Ray 08/29/22 01:20 XR chest 1V portable CLINICAL HISTORY: weakness COMPARISON STUDY: No previous studies for comparison. FINDINGS: Cardiomegaly is noted. There is no evidence for pulmonary edema. There is no pneumothorax or pleural effusion. No consolidation is identified to suggest pneumonia. Mediastinal widening is due to mediastinal lipomatosis. IMPRESSION: No acute cardiopulmonary findings. Cardiomegaly. ACT 112: Negative or not required by law. Electronically signed by: Shan Pedroza M.D. 08/29/2022 7:51 AM Abdomen/Pelvis CT 08/29/22 03:08 CT abd pelvis wo con CLINICAL HISTORY: new anemia TECHNIQUE: Helical axial images of the abdomen and pelvis were obtained. A utomated dose lowering techniques and/or adjustment according to patient size were utilized for this exam. This exam was performed without intravenous contrast. COMPARISON: None available at the time of this dictation. FINDINGS: Lower chest: For findings above the diaphragm, please see CT chest performed same day. Liver: Unremarkable. No focal lesions are seen. Gallbladder and biliary tree: No calcified gallstones. Normal caliber wall. No intra- or extrahepatic biliary ductal dilation. Pancreas: Fatty replacement of the pancreas is seen. Spleen: Unremarkable. Adrenals: Unremarkable. Kidneys and ureters: Numerous intermediate density lesions are seen in the bilateral kidneys. Bladder: Unremarkable. Reproductive organs: Unremarkable. Bowel: A hiatal hernia is seen. The appendix is normal. Lymph nodes Retroperitoneal: Unremarkable. Pelvic: Unremarkable. Mesenteric: Unremarkable. Peritoneum: Normal. Vessels: Atherosclerotic calcifications are seen. Abdominal wall: Injection granulomata are seen. Bones: Degenerative changes in the visualized spine. IMPRESSION: 1. No acute abnormalities, in particular no evidence of intra-abdominal hemorrhage in this patient with anemia. 2. Bilateral kidneys are with intermediate density lesions likely representing hemorrhagic/proteinaceous cysts. Follow-up by ultrasound is recommended to exclude solid mass. ACT 112: Negative or not required by law. Electronically signed by: Taz Wang M.D. 08/29/2022 10:[address] 08/29/22 03:08 CT OF THE CHEST WITHOUT IV CONTRAST CLINICAL HISTORY: New anemia. COMPARISON STUDY: No previous studies for comparison. CT DOSE: 3858.11 mGy.cm TECHNIQUE: Axial images of the chest were obtained without IV contrast. Images were reviewed in the axial, sagittal, and coronal planes. IV contrast was not administered for this examination. Automated exposure control was utilized for the study. A dose lowering technique was utilized adhering to the principles of ALARA. FINDINGS: This study is compromised given body wall contacting the gantry with resultant artifact. Mild cardiomegaly is noted. There is no pericardial effusion. No enlarged axillary, mediastinal or hilar lymph nodes are present. No hematoma is identified within the chest. The right chest is partially obscured on this exam. Linear and groundglass opacities within lungs favor atelectasis. No consolidation to suggest pneumonia. There is no pneumothorax or pleural effusion. No acute fracture or suspicious lesion within the bony thorax is noted. The abdomen and pelvis CT will be reported separately. IMPRESSION: 1. No acute process within the chest. No hematoma identified. Right hemithorax partially obscured by artifact. 2. Mild cardiomegaly. ACT 112: Negative or not required by law. Electronically signed by: Shan Pedroza M.D. 08/29/2022 7:39 AM Renal Ultrasound 08/29/22 22:23 US renal/blad retro comp HISTORY: 56 years-old Male r/o renal mass, Elevate creatinine acute renal failure COMPARISON: CT abdomen and pelvis 08/29/2022 TECHNIQUE: Multiple real-time sonographic images of the kidneys and urinary bladder were obtained assessing grayscale appearance and color flow. FINDINGS: The right kidney measures 12.5 x 6.3 x 5.8 cm and demonstrates diffuse cortical thinning with decreased corticomedullary differentiation. No solid renal mass lesions, hydronephrosis or renal calculi within the right kidney identified. Mildly complex exophytic cyst of the inferior pole right kidney, 5.6 x 4.9 x 5.1 cm. A few additional smaller cysts of the right kidney are also noted. The left kidney measures 12.2 x 5.0 x 6.0 cm and demonstrates diffuse cortical thinning with decreased corticomedullary differentiation. No solid renal mass lesions, hydronephrosis or renal calculi calculi within the left kidney identified. A renal sinus cysts of the left kidney is mildly complex measuring 3.7 x 2.2 x 3.3 cm. Additional smaller cysts are also noted. Decompressed urinary bladder with Starks catheter is not well visualized. IMPRESSION: 1. No renal calculi, hydronephrosis or solid renal mass lesions identified by ultrasound. Please note however that the study is limited secondary to patient body habitus. 2. Bilateral simple and complex renal cysts. 3. Bilateral diffuse cortical thinning with decreased corticomedullary differentiation compatible with chronic medical renal disease. ACT 112: Negative or not required by law. The above report was generated using voice recognition software. It may contain grammatical, syntax or spelling errors. Electronically signed by: Mayito Garza M.D. 08/30/2022 6:56 AM PG Care Time/CCT Total # of Minutes Spent Total Time Spent with Patient: Total time spent is greater than 50% in coordination of care (as documented) at patient's floor/unit and/or counseling patient: [place] [address] Inpt Consult Level 4 Patient Type New History Expanded Problem Focused Exam Expanded Problem Focused Medical Decision Making High Complexity Diagnoses Anemia D64.9
[2022-09-02] MEDS: HYDROCORTISONE SOD 25 MG in SYRINGE 0 ML IV SCH ×2 (02:22→05:58)
[2022-09-02 07:11] LABS: BUN Creatinine Ratio 20.7 (10-20); Calcium 7.8 mg/dl (8.5-10.1); Est GFR (African American) 28.6 ml/min; Est GFR (Non-African American) 24.7 ml/min; Phosphorus 4.2 mg/dl (2.5-4.9); Potassium 3.2 mmol/L (3.5-5.1)
[2022-09-02] MEDS ORDERED: POTASSIUM CHLORIDE CRTAB 20 MEQ TABCR PO STA (07:32)
--- NOTE | 2022-09-02 07:33 | Hospitalist Progress Note ---
Date of Service September 02, 2022 Assessment & Plan (1) Encephalopathy: Plan: Multifactorial : Respiratory failure, possible OHS, untreated RUTH (patient still has to go for a sleep study as per .) Acute on chronic anemia secondary to L GIB rule out C. difficile ARF on CKD Rule out UTI, possible sepsis Troponin elevation secondary to illness Encephalopathy resolved Continues to use suppl. O2 via NC Needs to use bipap given OHS, RUTH Pulmonary consult Re: Respiratory failure, probable RUTH, appreciate their input UA negative blood cultx - negat. for 48 hrs Anemia/ GI bleed FOBT pending + blood in stool stool studies, c. diff pending Received 4 units of pRBC thus far Anemia work-up, transfuse PRBC to maintain hemoglobin greater than 7 and or for symptomatic anemia IV PPI GI consulted s/p EGD Findings: The examined esophagus was normal. The entire examined stomach was normal. Two 8 mm sessile polyps were found in the second portion of the duodenum. Biopsies were taken with a cold forceps for histology. Verification of patient identification for the specimen was done by the physician and nurse using the patient's name and date. Impression: - No evidence of UGI bleeding. - Normal esophagus. - Normal stomach. - Two duodenal polyps, likely hyperplastic. Biopsied. Recommendation: - Await pathology results. s/p Colonoscopy Findings: The perianal and digital rectal examinations were normal. The terminal ileum appeared normal. A 10 mm polyp was found in the rectum. The polyp was sessile. The polyp was removed with a cold snare. Resection and retrieval were complete. Verification of patient identification for the specimen was done by the physician and nurse using the patient's name and date. To prevent bleeding after the polypectomy, three hemostatic clips were successfully placed (MR conditional). Scattered small and large-mouthed diverticula were found in the sigmoid colon. Non-bleeding internal hemorrhoids were found during retroflexion. The hemorrhoids were small. Impression: - Preparation of the colon was fair. - The examined portion of the ileum was normal. - One 10 mm polyp in the rectum, removed with a cold snare. Resected and retrieved. Clips (MR conditional) were placed. - Diverticulosis in the sigmoid colon. - Non-bleeding internal hemorrhoids. Recommendation: - Return patient to [facility] for ongoing care. - Advance diet as tolerated. - Await pathology results. - Repeat colonoscopy in 5 years for surveillance. - Recall GI if needed. COMMENT: No evidence of GI bleeding, consider Hematology evaluation. 09/01 Peripheral smear ordered, and Hematology consulted 09/02 - Hgb 7.0 - will order one more unit of pRBC - no gross GI bleed at this time noted - folic acid supplmenet started - periph. smear - pending CHERYL, d/t ATN Starks catheter now, baseline UA, monitor creatinine response to IVF CT abd/ pelvis - abnormal imaging of kidneys Of note patient reports having CHERYL and being hospitalized for it in [place] Renal ultrasound ordered, nephrology consulted, appreciate their input 1. No renal calculi, hydronephrosis or solid renal mass lesions identified by ultrasound. Please note however that the study is limited secondary to patient body habitus. 2. Bilateral simple and complex renal cysts. 3. Bilateral diffuse cortical thinning with decreased corticomedullary differentiation compatible with chronic medical renal disease. - Pt started on IV lasix, will incr dose and closely monitor Elevated troponin -secondary to illness above, no chest pain Echo ordered - read pending Hyperglycemia -likely prediabetes, hemoglobin A1c of 5.31 July 2022 as per outpatient records - monitor blood sugar while inpt Ongoing tobacco abuse - counseling Nicotine patch Hypertension, stable Hyperlipidemia, statin noncompliance morbid obesity hx gout/rheumatoid arthritis chronic back pain medication noncompliance as per records DVT prophylaxis. SCDs Re: GI bleed Full code Mrs. Rima Bowie - contact # [phone]. Admission and Anticipated Discharge Date Admission Date: August 29, 2022 Subjective Pt seen in follow up of anemia, GI bleed, resp. failure Pt w/ morbid obesity, obesity hypovent. syndrome required bipap, now on NC awake and able to answer questions appropriately S/p EGD and colonoscopy Denies abdominal pain. Denies fevers chills, chest pain, shortness of breath, nausea vomiting. Also reports history of CHERYL when he was in the hospital in [place] Renal function improved Pt is tolerating diet Review of Systems Review of Systems: All systems reviewed & are unremarkable except as noted in Subjective Physical Exam Physical Exam: Constitutional: Morbidly obese M in NAD, on NC Eyes: EOMI, PERRL. Conjunctivae are normal. Anicteric sclera. Neck: thick short neck Respiratory: No use of accessory muscles.Minimal crackles, no wheezing Cardiovascular: Regular rate and rhythm. No murmurs. No edema. Gastrointestinal: Normal bowel sounds, soft, obese nontender and nondistended. : Starks catheter placed Musculoskeletal: Moves all extremities. Skin: No rashes, warm dry and intact. Neurologic: Speech fluent. Follows commands. Answers appropriately. Results & Data Results & Data ([facility]) Vital Signs (Past 12 Hours) Vital Signs Temp Pulse Pulse Resp BP Pulse Ox O2 Del Method 09/02/22 07:31 83 09/02/22 02:59 36.4 C L 75 18 152/82 H 99 BiPAP 09/02/22 02:40 72 17 99 09/02/22 01:33 Nasal Cannula, BiPAP 09/01/22 22:59 36.6 C 77 16 159/95 H 100 BiPAP 09/01/22 22:30 81 20 99 09/01/22 19:44 36.6 C 76 19 152/82 H 97 Nasal Cannula O2 Flow Rate FiO2 09/02/22 07:31 09/02/22 02:59 09/02/22 02:40 35 09/02/22 01:33 09/01/22 22:59 09/01/22 22:30 40 09/01/22 19:44 2 Laboratory Results 09/02/22 09/02/22 09/02/22 Range/Units 11:29 09:40 07:13 WBC (4.8-10.8) K/ul RBC (4.63-6.08) M/uL Hgb (14.0-18.0) g/dl Hct (40.1-51.0) % MCV (80.0-100.0) fL MCH (25.0-34.0) pg MCHC (32.0-36.0) g/dL RDW Std Deviation (36.4-46.3) fL RDW Coeff of Cheryl (11.5-14.5) % Plt Count (130-400) K/uL MPV (9.4-12.4) fL Absolute Nucleated RBC (0-0) K/uL Nucleated RBC % (auto) % Peripher Smr Path Cons Sodium (136-145) mmol/L Potassium (3.5-5.1) mmol/L Chloride (98-107) mmol/L Carbon Dioxide (21-32) mmol/L Anion Gap (3-11) BUN (6-23) mg/dl Creatinine (0.6-1.4) mg/dl Est Cr Clr Drug Dosing ml/min Est GFR ( Amer) ml/min Est GFR (Non-Af Amer) ml/min BUN/Creatinine Ratio (10-20) Glucose (70-99(Fasting)) mg/dl POC Glucose 246 H 171 H (70-99) mg/dl Calcium (8.5-10.1) mg/dl Phosphorus (2.5-4.9) mg/dl Magnesium (1.7-2.4) mg/dl Blood Type O Negative Antibody Screen NEGATIVE Crossmatch See Detail 09/02/22 09/02/22 09/01/22 Range/Units 06:37 06:37 20:39 WBC 7.78 (4.8-10.8) K/ul RBC 2.38 L (4.63-6.08) M/uL Hgb 7.0 L (14.0-18.0) g/dl Hct 22.4 L (40.1-51.0) % MCV 94.1 (80.0-100.0) fL MCH 29.4 (25.0-34.0) pg MCHC 31.3 L (32.0-36.0) g/dL RDW Std Deviation 51.3 H (36.4-46.3) fL RDW Coeff of Cheryl 15.1 H (11.5-14.5) % Plt Count 187 (130-400) K/uL MPV 10.6 (9.4-12.4) fL Absolute Nucleated RBC 0.08 H (0-0) K/uL Nucleated RBC % (auto) 1.0 % Peripher Smr Path Cons Pending Sodium 138 (136-145) mmol/L Potassium 3.2 L D (3.5-5.1) mmol/L Chloride 103 (98-107) mmol/L Carbon Dioxide 25 (21-32) mmol/L Anion Gap 10 (3-11) BUN 57 H (6-23) mg/dl Creatinine 2.75 H D (0.6-1.4) mg/dl Est Cr Clr Drug Dosing 57.0 ml/min Est GFR ( Amer) 28.6 ml/min Est GFR (Non-Af Amer) 24.7 ml/min BUN/Creatinine Ratio 20.7 H (10-20) Glucose 134 H (70-99(Fasting)) mg/dl POC Glucose 201 H (70-99) mg/dl Calcium 7.8 L (8.5-10.1) mg/dl Phosphorus 4.2 D (2.5-4.9) mg/dl Magnesium 2.0 (1.7-2.4) mg/dl Blood Type Antibody Screen Crossmatch 09/01/22 09/01/22 Range/Units 16:24 12:58 WBC (4.8-10.8) K/ul RBC (4.63-6.08) M/uL Hgb (14.0-18.0) g/dl Hct (40.1-51.0) % MCV (80.0-100.0) fL MCH (25.0-34.0) pg MCHC (32.0-36.0) g/dL RDW Std Deviation (36.4-46.3) fL RDW Coeff of Cheryl (11.5-14.5) % Plt Count (130-400) K/uL MPV (9.4-12.4) fL Absolute Nucleated RBC (0-0) K/uL Nucleated RBC % (auto) % Peripher Smr Path Cons Sodium (136-145) mmol/L Potassium (3.5-5.1) mmol/L Chloride (98-107) mmol/L Carbon Dioxide (21-32) mmol/L Anion Gap (3-11) BUN (6-23) mg/dl Creatinine (0.6-1.4) mg/dl Est Cr Clr Drug Dosing ml/min Est GFR ( Amer) ml/min Est GFR (Non-Af Amer) ml/min BUN/Creatinine Ratio (10-20) Glucose (70-99(Fasting)) mg/dl POC Glucose 143 H 115 H (70-99) mg/dl Calcium (8.5-10.1) mg/dl Phosphorus (2.5-4.9) mg/dl Magnesium (1.7-2.4) mg/dl Blood Type Antibody Screen Crossmatch Medications Administered Current Inpatient Medications Acetaminophen (Acetaminophen 325 Mg Tab) 650 mg PO Q4H PRN PRN Reason: Pain or Fever Stop: 09/28/22 07:58 Last Admin: 08/30/22 04:27 Dose: 650 mg Pantoprazole Sodium 40 mg/ (Syringe) 10 mls @ 5 mls/min IV BID [facility] Stop: 09/28/22 22:29 Last Admin: 09/01/22 19:58 Dose: 5 mls/min Hydrocortisone Sodium (Succinate 25 mg/ Syringe) 0.5 mls @ 4 mls/min IV Q6H [facility] Stop: 10/01/22 11:59 Last Admin: 09/02/22 05:58 Dose: 4 mls/min Cefepime HCl 2,000 mg/ Syringe 20 mls @ 5 mls/min IV Q12H [facility]; Protocol Stop: 09/05/22 10:44 Last Admin: 09/01/22 19:58 Dose: 5 mls/min Metoprolol Tartrate (Metoprolol Tartrate 1 Mg/Ml Vial) 2.5 mg IV Q6H PRN PRN Reason: HR > 110 Stop: 09/28/22 11:59 Potassium Chloride (Potassium Chloride Crtab 20 Meq Tabcr) 20 meq PO NOW STA Stop: 09/02/22 07:33 Verapamil HCl (Verapamil Hcl 240 Mg Tabcr) 240 mg PO QAM [facility] Stop: 09/28/22 08:59 Last Admin: 09/01/22 08:44 Dose: 240 mg
[2022-09-02 07:38] LABS: Hematocrit (blood only) 22.4 % (40.1-51.0); Mean Corpuscular Hemoglobin 29.4 pg (25.0-34.0); Mean Corpuscular Hgb Conc 31.3 g/dL (32.0-36.0); Mean Corpuscular Volume 94.1 fL (80.0-100.0); Mean Platelet Volume 10.6 fL (9.4-12.4); Nucleated RBC # (auto) 0.08 K/uL (0-0); Platelet Count 187 K/uL (130-400); RDW Coefficient of Variation 15.1 % (11.5-14.5); RDW Standard Deviation 51.3 fL (36.4-46.3); Red Blood Count 2.38 M/uL (4.63-6.08); White Blood Count 7.78 K/ul (4.8-10.8)
[2022-09-02] MEDS: VERAPAMIL HCL 240 MG TABCR PO SCH (07:55)
[2022-09-02] MEDS ORDERED: SODIUM CHLORIDE 0.9% 250 ML IV PRN ×2 (09:09→16:30)
--- NOTE | 2022-09-02 09:50 | Nephrology Progress Note ---
Date of Service September 02, 2022 Assessment & Plan (1) CHERYL (acute kidney injury): Plan: Patient with acute kidney injury due to ischemic ATN in setting of acute blood loss anemia. Admission creatinine of 3.6. Creatinine downtrending to 2.7 today. Patient is grossly volume overloaded. He received 1 dose of IV Lasix yesterday. -Continue Lasix and will increase to 40 mg IV twice daily. -Potassium chloride 40 mEq daily. -Daily BMP and avoid nephrotoxins (2) Anemia: Plan: Patient with anemia due to GI bleed. Hemoglobin of 7 today. Continue to monitor and transfuse as needed for hemoglobin less than 7. Admission and Anticipated Discharge Date Admission Date: August 29, 2022 Subjective Seen for acute kidney injury and fluid overload. Patient admitted with GI ble ed. He feels better today denies any shortness of breath. Legs are swollen. Review of Systems Review of Systems: All other systems were reviewed and negative except as noted in HPI Physical Exam Physical Exam: General exam: Appears comfortable, no acute distress HEENT: Pupils are equal and reactive to light Neck: No JVD, neck is supple trachea is midline Respiratory system: Clear breath sounds bilaterally. Gastrointestinal: Abdomen is soft, non distended, non tender, bowel sounds are present CVS: Regular rate and rhythm. No murmurs, rubs or gallops Musculoskeletal: No joint or muscle tenderness Extremities: Non tender, 2+ edema, peripheral pulses are present Neuro: Oriented, no tremors, no focal neurological deficits Skin: No rashes Results & Data ([facility]) Vital Signs (Past 12 Hours) Vital Signs Temp Pulse Pulse Resp BP BP Pulse Ox 09/02/22 08:00 36.8 C 77 22 157/87 H 98 09/02/22 07:31 83 09/02/22 02:59 36.4 C L 75 18 152/82 H 99 09/02/22 02:40 72 17 99 09/02/22 01:33 09/01/22 22:59 36.6 C 77 16 159/95 H 100 09/01/22 22:30 81 20 99 O2 Del Method FiO2 09/02/22 08:00 Nasal Cannula 09/02/22 07:31 09/02/22 02:59 BiPAP 09/02/22 02:40 35 09/02/22 01:33 Nasal Cannula, BiPAP 09/01/22 22:59 BiPAP 09/01/22 22:30 40 Laboratory Results 09/02/22 06:37 09/02/22 09/02/22 06:37 06:37 WBC 7.78 RBC 2.38 L MCV 94.1 MCH 29.4 MCHC 31.3 L RDW Std Deviation 51.3 H RDW Coeff of Cheryl 15.1 H Plt Count 187 MPV 10.6 Phosphorus 4.2 D
[2022-09-02] MEDS: PANTOprazole 40 MG in SYRINGE 0 ML IV SCH ×2 (09:56→20:17)
[2022-09-02] MEDS ORDERED: FUROSEMIDE 40 MG/4 ML VIAL IV SCH (10:00)
[2022-09-02] MEDS: POTASSIUM CHLORIDE 20 MEQ/15 ML UDC PO SCH (10:10)
[2022-09-02] MEDS: oxyCODONE HCL IR 5 MG TAB (IMMEDIATE RELEASE) PO PRN ×2 (11:12→17:11)
[2022-09-02] MEDS: ACETAMINOPHEN 325 MG TAB PO PRN ×2 (11:12→17:11)
[2022-09-02] MEDS: CEFEPIME 2,000 MG in SYRINGE 0 ML IV SCH ×2 (11:13→22:58)
[2022-09-02] MEDS: FOLIC ACID 1 MG TAB PO SCH (13:56)
[2022-09-02 15:51] LABS: Hematocrit (blood only) 24.3 % (40.1-51.0); Hemoglobin 7.7 g/dl (14.0-18.0)
[2022-09-02] MEDS: FUROSEMIDE 40 MG/4 ML VIAL IV SCH (17:02)
[2022-09-02] MEDS: SODIUM CHLORIDE 0.9% 1000ML 1,000 ML IV SCH (21:41)
--- NOTE | 2022-09-03 07:21 | Hospitalist Progress Note ---
Date of Service September 03, 2022 Assessment & Plan (1) Encephalopathy: Plan: Multifactorial : Respiratory failure, possible OHS, untreated RUTH (patient still has to go for a sleep study as per .) Acute on chronic anemia secondary to L GIB rule out C. difficile ARF on CKD Rule out UTI, possible sepsis Troponin elevation secondary to illness Encephalopathy resolved Continues to use suppl. O2 via [place] Needs to use bipap given OHS, RUTH Pulmonary consult Re: Respiratory failure, probable RUTH, appreciate their input UA negative blood cultx - negat. for 48 hrs Anemia/ GI bleed FOBT pending + blood in stool stool studies, c. diff pending Received 6 units of pRBC so far Anemia work-up, transfuse PRBC to maintain hemoglobin greater than 7 and or for symptomatic anemia IV PPI GI consulted s/p EGD Findings: The examined esophagus was normal. The entire examined stomach was normal. Two 8 mm sessile polyps were found in the second portion of the duodenum. Biopsies were taken with a cold forceps for histology. Verification of patient identification for the specimen was done by the physician and nurse using the patient's name and date. Impression: - No evidence of UGI bleeding. - Normal esophagus. - Normal stomach. - Two duodenal polyps, likely hyperplastic. Biopsied. Recommendation: - Await pathology results. s/p Colonoscopy Findings: The perianal and digital rectal examinations were normal. The terminal ileum appeared normal. A 10 mm polyp was found in the rectum. The polyp was sessile. The polyp was removed with a cold snare. Resection and retrieval were complete. Verification of patient identification for the specimen was done by the physician and nurse using the patient's name and date. To prevent bleeding after the polypectomy, three hemostatic clips were successfully placed (MR conditional). Scattered small and large-mouthed diverticula were found in the sigmoid colon. Non-bleeding internal hemorrhoids were found during retroflexion. The hemorrhoids were small. Impression: - Preparation of the colon was fair. - The examined portion of the ileum was normal. - One 10 mm polyp in the rectum, removed with a cold snare. Resected and retrieved. Clips (MR conditional) were placed. - Diverticulosis in the sigmoid colon. - Non-bleeding internal hemorrhoids. Recommendation: - Return patient to [facility] for ongoing care. - Advance diet as tolerated. - Await pathology results. - Repeat colonoscopy in 5 years for surveillance. - Recall GI if needed. COMMENT: No evidence of GI bleeding, consider Hematology evaluation. 09/01 Peripheral smear ordered, and Hematology consulted 09/02 - Hgb 7.0 - will order one more unit of pRBC - no gross GI bleed at this time noted - folic acid supplement started - periph. smear - pending 09/03 -discussed with hematology, plan for GI bleed scan tomorrow CHERYL, d/t ATN Starks catheter now, baseline UA, monitor creatinine response to IVF CT abd/ pelvis - abnormal imaging of kidneys Of note patient reports having CHERYL and being hospitalized for it in [place] Renal ultrasound ordered, nephrology consulted, appreciate their input 1. No renal calculi, hydronephrosis or solid renal mass lesions identified by ultrasound. Please note however that the study is limited secondary to patient body habitus. 2. Bilateral simple and complex renal cysts. 3. Bilateral diffuse cortical thinning with decreased corticomedullary differentiation compatible with chronic medical renal disease. - Pt started on IV lasix, will incr dose and closely monitor - nephrology following Elevated troponin -secondary to illness above, no chest pain Echo obtained -very technically limited due to patient's body habitus. Grossly normal LV systolic function without all wall segments able to be visualized. Hyperglycemia -likely prediabetes, hemoglobin A1c of 5.31 July 2022 as per outpatient records - monitor blood sugar while inpt Ongoing tobacco abuse - counseling Nicotine patch Hypertension, stable Hyperlipidemia, statin noncompliance morbid obesity hx gout/rheumatoid arthritis chronic back pain medication noncompliance as per records DVT prophylaxis. SCDs Re: GI bleed Full code Mrs. Rima Bowie - contact # [phone]. Admission and Anticipated Discharge Date Admission Date: August 29, 2022 Subjective Pt seen in follow up of anemia, GI bleed, resp. failure Pt w/ morbid obesity, obesity hypovent. syndrome required bipap, now on NC awake and able to answer questions appropriately S/p EGD and colonoscopy Denies abdominal pain. Denies fevers chills, chest pain, shortness of breath, nausea vomiting. Reports pain in his joints due to arthritis Also reports history of CHERYL when he was in the hospital in [place] Renal function improved Pt is tolerating diet Received 2 units of PRBCs yesterday Plan for bleeding scan tomorrow Review of Systems Review of Systems: All systems reviewed & are unremarkable except as noted in Subjective Physical Exam Physical Exam: Constitutional: Morbidly obese M in NAD, on NC Eyes: EOMI, PERRL. Conjunctivae are normal. Anicteric sclera. Neck: thick short neck Respiratory: No use of accessory muscles.Minimal crackles, no wheezing Cardiovascular: Regular rate and rhythm. No murmurs. No edema. Gastrointestinal: Normal bowel sounds, soft, obese nontender and nondistended. : Starks catheter placed Musculoskeletal: Moves all extremities. Skin: No rashes, warm dry and intact. Neurologic: Speech fluent. Follows commands. Answers appropriately. Results & Data Results & Data ([facility]) Vital Signs (Past 12 Hours) Vital Signs Temp Pulse Pulse Resp BP BP BP 09/03/22 02:59 36.4 C L 72 21 130/81 09/03/22 02:13 74 20 09/02/22 23:58 77 09/02/22 22:56 36.7 C 77 16 145/92 H 09/02/22 22:35 79 21 09/02/22 22:30 09/02/22 20:12 36.5 C 78 20 121/74 09/02/22 22:14 36.7 C 77 17 128/83 09/02/22 21:14 36.5 C 79 18 142/81 H 09/02/22 20:44 36.4 C L 78 16 144/78 H 09/02/22 20:29 36.5 C 77 16 139/77 09/02/22 19:44 36.5 C 81 18 175/78 H Pulse Ox O2 Del Method O2 Flow Rate FiO2 09/03/22 02:59 96 BiPAP 09/03/22 02:13 96 35 09/02/22 23:58 09/02/22 22:56 97 09/02/22 22:35 96 35 09/02/22 22:30 Nasal Cannula 2 09/02/22 20:12 94 2 09/02/22 22:14 95 2 09/02/22 21:14 94 2 09/02/22 20:44 95 2 09/02/22 20:29 94 2 09/02/22 19:44 95 Nasal Cannula 2 Laboratory Results 09/03/22 09/03/22 09/03/22 Range/Units 07:37 07:11 07:11 WBC 5.59 (4.8-10.8) K/ul RBC 2.99 L (4.63-6.08) M/uL Hgb 8.9 L (14.0-18.0) g/dl Hct 28.0 L (40.1-51.0) % MCV 93.6 (80.0-100.0) fL MCH 29.8 (25.0-34.0) pg MCHC 31.8 L (32.0-36.0) g/dL RDW Std Deviation 52.4 H (36.4-46.3) fL RDW Coeff of Cheryl 15.3 H (11.5-14.5) % Plt Count 174 (130-400) K/uL MPV 9.8 (9.4-12.4) fL Absolute Nucleated RBC 0.07 H (0-0) K/uL Nucleated RBC % (auto) 1.3 % Sodium 139 (136-145) mmol/L Potassium 3.5 (3.5-5.1) mmol/L Chloride 104 (98-107) mmol/L Carbon Dioxide 27 (21-32) mmol/L Anion Gap 8 (3-11) BUN 58 H (6-23) mg/dl Creatinine 2.57 H (0.6-1.4) mg/dl Est Cr Clr Drug Dosing 61.8 ml/min Est GFR ( Amer) 31.0 ml/min Est GFR (Non-Af Amer) 26.8 ml/min BUN/Creatinine Ratio 22.6 H (10-20) Glucose 90 (70-99(Fasting)) mg/dl POC Glucose 107 H (70-99) mg/dl Calcium 8.2 L (8.5-10.1) mg/dl Phosphorus 3.8 (2.5-4.9) mg/dl Magnesium 1.9 (1.7-2.4) mg/dl Blood Type Antibody Screen Crossmatch 09/02/22 09/02/22 09/02/22 Range/Units 20:07 16:34 15:40 WBC (4.8-10.8) K/ul RBC (4.63-6.08) M/uL Hgb 7.7 L (14.0-18.0) g/dl Hct 24.3 L (40.1-51.0) % MCV (80.0-100.0) fL MCH (25.0-34.0) pg MCHC (32.0-36.0) g/dL RDW Std Deviation (36.4-46.3) fL RDW Coeff of Cheryl (11.5-14.5) % Plt Count (130-400) K/uL MPV (9.4-12.4) fL Absolute Nucleated RBC (0-0) K/uL Nucleated RBC % (auto) % Sodium (136-145) mmol/L Potassium (3.5-5.1) mmol/L Chloride (98-107) mmol/L Carbon Dioxide (21-32) mmol/L Anion Gap (3-11) BUN (6-23) mg/dl Creatinine (0.6-1.4) mg/dl Est Cr Clr Drug Dosing ml/min Est GFR ( Amer) ml/min Est GFR (Non-Af Amer) ml/min BUN/Creatinine Ratio (10-20) Glucose (70-99(Fasting)) mg/dl POC Glucose 134 H 181 H (70-99) mg/dl Calcium (8.5-10.1) mg/dl Phosphorus (2.5-4.9) mg/dl Magnesium (1.7-2.4) mg/dl Blood Type Antibody Screen Crossmatch 09/02/22 09/02/22 08/29/22 Range/Units 11:29 09:40 03:02 WBC (4.8-10.8) K/ul RBC (4.63-6.08) M/uL Hgb (14.0-18.0) g/dl Hct (40.1-51.0) % MCV (80.0-100.0) fL MCH (25.0-34.0) pg MCHC (32.0-36.0) g/dL RDW Std Deviation (36.4-46.3) fL RDW Coeff of Cheryl (11.5-14.5) % Plt Count (130-400) K/uL MPV (9.4-12.4) fL Absolute Nucleated RBC (0-0) K/uL Nucleated RBC % (auto) % Sodium (136-145) mmol/L Potassium (3.5-5.1) mmol/L Chloride (98-107) mmol/L Carbon Dioxide (21-32) mmol/L Anion Gap (3-11) BUN (6-23) mg/dl Creatinine (0.6-1.4) mg/dl Est Cr Clr Drug Dosing ml/min Est GFR ( Amer) ml/min Est GFR (Non-Af Amer) ml/min BUN/Creatinine Ratio (10-20) Glucose (70-99(Fasting)) mg/dl POC Glucose 246 H (70-99) mg/dl Calcium (8.5-10.1) mg/dl Phosphorus (2.5-4.9) mg/dl Magnesium (1.7-2.4) mg/dl Blood Type O Negative Antibody Screen NEGATIVE Crossmatch See Detail See Detail Medications Administered Current Inpatient Medications Acetaminophen (Acetaminophen 325 Mg Tab) 650 mg PO Q4H PRN PRN Reason: Mild Pain or Fever Stop: 09/28/22 07:58 Last Admin: 09/02/22 17:11 Dose: 650 mg Folic Acid (Folic Acid 1 Mg Tab) 1 mg PO QAM [facility] Stop: 10/02/22 11:59 Last Admin: 09/02/22 13:56 Dose: 1 mg Furosemide (Furosemide 40 Mg/4 Ml Vial) 40 mg IV [id number] [facility] Stop: 10/02/22 16:59 Last Admin: 09/02/22 17:02 Dose: 40 mg Pantoprazole Sodium 40 mg/ (Syringe) 10 mls @ 5 mls/min IV BID [facility] Stop: 09/28/22 22:29 Last Admin: 09/02/22 20:17 Dose: 5 mls/min Cefepime HCl 2,000 mg/ Syringe 20 mls @ 5 mls/min IV Q12H [facility]; Protocol Stop: 09/05/22 10:44 Last Admin: 09/02/22 22:58 Dose: 5 mls/min Metoprolol Tartrate (Metoprolol Tartrate 1 Mg/Ml Vial) 2.5 mg IV Q6H PRN PRN Reason: HR > 110 Stop: 09/28/22 11:59 Oxycodone HCl (Oxycodone Hcl Ir 5 Mg Tab (Immediate Release)) 5 mg PO Q6H PRN PRN Reason: Moderate to Severe Pain Stop: 09/16/22 10:39 Last Admin: 09/02/22 17:11 Dose: 5 mg Potassium Chloride (Potassium Chloride 20 Meq/15 Ml [facility]) [facility] [place]: 10/02/22 09:59 Last Admin: 09/02/22 10:10 Dose: 40 meq Prednisone (Prednisone 10 Mg Tablet) 30 mg PO [facility] Stop: 10/03/22 08:59 Verapamil HCl (Verapamil Hcl 240 Mg Tabcr) 240 mg PO [facility] Stop: 09/28/22 08:59 Last Admin: 09/02/22 07:55 Dose: 240 mg
[2022-09-03 07:35] LABS: Hemoglobin 8.9 g/dl (14.0-18.0); Mean Corpuscular Hemoglobin 29.8 pg (25.0-34.0); Mean Corpuscular Hgb Conc 31.8 g/dL (32.0-36.0); Mean Corpuscular Volume 93.6 fL (80.0-100.0); Mean Platelet Volume 9.8 fL (9.4-12.4); Nucleated RBC # (auto) 0.07 K/uL (0-0); Nucleated RBC % (auto) 1.3 %; Platelet Count 174 K/uL (130-400); RDW Coefficient of Variation 15.3 % (11.5-14.5); RDW Standard Deviation 52.4 fL (36.4-46.3); Red Blood Count 2.99 M/uL (4.63-6.08); White Blood Count 5.59 K/ul (4.8-10.8)
[2022-09-03 08:01] LABS: BUN Creatinine Ratio 22.6 (10-20); Calcium 8.2 mg/dl (8.5-10.1); Creatinine Clr Calc Pharmacy 61.8 ml/min; Est GFR (Non-African American) 26.8 ml/min; Magnesium 1.9 mg/dl (1.7-2.4); Phosphorus 3.8 mg/dl (2.5-4.9); Potassium 3.5 mmol/L (3.5-5.1)
--- NOTE | 2022-09-03 08:15 | Hospitalist Progress Note ---
Date of Service September 03, 2022 Assessment & Plan (1) Anemia: Plan: Still transfusion requiring but with better response of hemoglobin thus hopefully somewhat less bleeding. Normal haptoglobin further excludes pathologic hemolysis. Body habitus makes assessment for any emerging retroperitoneal or intra-abdominal bleed more difficult but that seems less likely and with ongoing evidence of GI bleed we likely have the more acute source identified. Anemia is multifactorial but main issue remains blood loss and attendant iron deficiency Given that he (hopefully) has less transfusion requirements we will recheck ferritin tomorrow and on that basis make some recommendations for intravenous iron tomorrow. Defer to GI but at some point may need to think about a bleeding study. Plan Continue transfusions as needed per hemoglobin, will reassess ferritin and make some recommendations for iron infusion as well. Anticipate potential bleeding study. Admission and Anticipated Discharge Date Admission Date: August 29, 2022 Subjective Still transfusion requiring though hemoglobin response is improved. Physical Exam Physical Exam: Vital signs are stable and patient is oxygenating well on BiPAP Results & Data Results & Data ([facility]) Vital Signs (Past 12 Hours) Vital Signs Temp Pulse Pulse Resp BP BP Pulse Ox 09/03/22 02:59 36.4 C L 72 21 130/81 96 09/03/22 02:13 74 20 96 09/02/22 23:58 77 09/02/22 22:56 36.7 C 77 16 145/92 H 97 09/02/22 22:35 79 21 96 09/02/22 22:30 09/02/22 20:12 36.5 C 78 20 121/74 94 09/02/22 22:14 36.7 C 77 17 128/83 95 09/02/22 21:14 36.5 C 79 18 142/81 H 94 09/02/22 20:44 36.4 C L 78 16 144/78 H 95 09/02/22 20:29 36.5 C 77 16 139/77 94 O2 Del Method O2 Flow Rate FiO2 09/03/22 02:59 BiPAP 09/03/22 02:13 35 09/02/22 23:58 09/02/22 22:56 09/02/22 22:35 35 09/02/22 22:30 Nasal Cannula 2 09/02/22 20:12 2 09/02/22 22:14 2 09/02/22 21:14 2 09/02/22 20:44 2 09/02/22 20:29 2 PG Care Time/CCT Total # of Minutes Spent Total Time Spent with Patient: Total time spent is greater than 50% in coordination of care (as documented) at patient's floor/unit and/or counseling patient: Coding Level of Care Code 53532 Subseq Hosp Care Lvl 1 Diagnoses Anemia D64.9
[2022-09-03] MEDS: oxyCODONE HCL IR 5 MG TAB (IMMEDIATE RELEASE) PO PRN ×2 (08:57→15:47)
[2022-09-03] MEDS: PANTOprazole 40 MG in SYRINGE 0 ML IV SCH ×2 (08:58→20:03)
[2022-09-03] MEDS: predniSONE 10 MG TABLET PO SCH (08:58)
[2022-09-03] MEDS: POTASSIUM CHLORIDE 20 MEQ/15 ML UDC PO SCH ×2 (08:58→09:37)
[2022-09-03] MEDS: FOLIC ACID 1 MG TAB PO SCH (08:59)
[2022-09-03] MEDS: FUROSEMIDE 40 MG/4 ML VIAL IV SCH ×2 (08:59→17:36)
[2022-09-03] MEDS ORDERED: POTASSIUM CHLORIDE CRTAB 20 MEQ TABCR PO SCH (10:00)
--- NOTE | 2022-09-03 10:32 | Nephrology Progress Note ---
Date of Service September 03, 2022 Assessment & Plan (1) CHERYL (acute kidney injury): Plan: Patient with acute kidney injury due to ischemic ATN in setting of acute blood loss anemia. Admission creatinine of 3.6. Creatinine downtrending to 2.7 today. Patient is grossly volume overloaded. He received 1 dose of IV Lasix yesterday. -Increase Lasix 200 mg IV twice daily. -Potassium chloride 40 mEq daily. -Daily BMP and avoid nephrotoxins (2) Anemia: Plan: Patient with anemia due to GI bleed. Hemoglobin of 8.9 today. Continue to monitor and transfuse as needed for hemoglobin less than 7. Admission and Anticipated Discharge Date Admission Date: August 29, 2022 Subjective Seen for acute kidney injury and volume overload. He denies shortness of breath. He is on oxygen nasal cannula. Legs are swollen. Patient was net even Review of Systems Review of Systems: All other systems were reviewed and negative except as noted in HPI Physical Exam Physical Exam: General exam: Appears comfortable, no acute distress. On oxygen nasal cannula HEENT: Pupils are equal and reactive to light Neck: No JVD, neck is supple trachea is midline Respiratory system: Clear breath sounds bilaterally. Gastrointestinal: Abdomen is soft, non distended, non tender, bowel sounds are present CVS: Regular rate and rhythm. No murmurs, rubs or gallops Musculoskeletal: No joint or muscle tenderness Extremities: Non tender, 2+ edema, peripheral pulses are present Neuro: Oriented, no tremors, no focal neurological deficits Skin: No rashes Results & Data ([facility]) Vital Signs (Past 12 Hours) Vital Signs Temp Pulse Pulse Resp BP BP BP 09/03/22 10:10 75 09/03/22 10:04 09/03/22 08:00 36.8 C 82 22 130/84 09/03/22 02:59 36.4 C L 72 21 130/81 09/03/22 02:13 74 20 09/02/22 23:58 77 09/02/22 22:56 36.7 C 77 16 145/92 H 09/02/22 22:35 79 21 Pulse Ox O2 Del Method O2 Flow Rate FiO2 09/03/22 10:10 09/03/22 10:04 Nasal Cannula 2 09/03/22 08:00 98 Oxymask 09/03/22 02:59 96 BiPAP 09/03/22 02:13 96 35 09/02/22 23:58 09/02/22 22:56 97 09/02/22 22:35 96 35 Laboratory Results 09/03/22 07:11 09/03/22 09/03/22 07:11 07:11 WBC 5.59 RBC 2.99 L MCV 93.6 MCH 29.8 MCHC 31.8 L RDW Std Deviation 52.4 H RDW Coeff of Cheryl 15.3 H Plt Count 174 MPV 9.8 Phosphorus 3.8
[2022-09-03] MEDS ORDERED: FUROSEMIDE 40 MG/4 ML VIAL IV STA ×2 (11:12→11:29)
[2022-09-03] MEDS: CEFEPIME 2,000 MG in SYRINGE 0 ML IV SCH ×2 (12:06→20:03)
[2022-09-04] MEDS: oxyCODONE HCL IR 5 MG TAB (IMMEDIATE RELEASE) PO PRN (00:41)
[2022-09-04] MEDS: CEFEPIME 2,000 MG in SYRINGE 0 ML IV SCH ×2 (03:47→16:49)
--- NOTE | 2022-09-04 05:55 | Electrocardiogram Report ---
Test Reason : Blood Pressure : / mmHG Vent. Rate : 074 BPM Atrial Rate : 075 BPM P-R Int : 000 ms QRS Dur : 120 ms QT Int : 406 ms P-R-T Axes : 000 -10 024 degrees QTc Int : 450 ms Possible Junctional rhythm Non-specific intra-ventricular conduction delay Borderline ECG When compared with ECG of 29-AUG-2022 01:10, Junctional rhythm has replaced Sinus rhythm Confirmed by Yovany Kerr ([id number]) on 09/04/2022 5:54:46 AM Referred By: REFERRED SELF Confirmed By:Yovany Kerr
--- NOTE | 2022-09-04 07:38 | Hospitalist Progress Note ---
Date of Service September 04, 2022 Assessment & Plan (1) Encephalopathy: Plan: Multifactorial : Respiratory failure, possible OHS, untreated RUTH (patient still has to go for a sleep study as per .) Acute on chronic anemia secondary to L GIB rule out C. difficile ARF on CKD Rule out UTI, possible sepsis Troponin elevation secondary to illness Encephalopathy resolved Continues to use suppl. O2 via NC Needs to use bipap given OHS, RUTH Pulmonary consult Re: Respiratory failure, probable RUTH, appreciate their input UA negative blood cultx - negative Anemia/ GI bleed FOBT pending + reported blood in stool stool studies, c. diff pending Received 6 units of pRBC so far Anemia work-up, transfuse PRBC to maintain hemoglobin greater than 7 and or for symptomatic anemia IV PPI GI consulted s/p EGD Findings: The examined esophagus was normal. The entire examined stomach was normal. Two 8 mm sessile polyps were found in the second portion of the duodenum. Biopsies were taken with a cold forceps for histology. Verification of patient identification for the specimen was done by the physician and nurse using the patient's name and date. Impression: - No evidence of UGI bleeding. - Normal esophagus. - Normal stomach. - Two duodenal polyps, likely hyperplastic. Biopsied. Recommendation: - Await pathology results. s/p Colonoscopy Findings: The perianal and digital rectal examinations were normal. The terminal ileum appeared normal. A 10 mm polyp was found in the rectum. The polyp was sessile. The polyp was removed with a cold snare. Resection and retrieval were complete. Verification of patient identification for the specimen was done by the physician and nurse using the patient's name and date. To prevent bleeding after the polypectomy, three hemostatic clips were successfully placed (MR conditional). Scattered small and large-mouthed diverticula were found in the sigmoid colon. Non-bleeding internal hemorrhoids were found during retroflexion. The hemorrhoids were small. Impression: - Preparation of the colon was fair. - The examined portion of the ileum was normal. - One 10 mm polyp in the rectum, removed with a cold snare. Resected and retrieved. Clips (MR conditional) were placed. - Diverticulosis in the sigmoid colon. - Non-bleeding internal hemorrhoids. Recommendation: - Return patient to [facility] for ongoing care. - Advance diet as tolerated. - Await pathology results. - Repeat colonoscopy in 5 years for surveillance. - Recall GI if needed. COMMENT: No evidence of GI bleeding, consider Hematology evaluation. 09/01 Peripheral smear ordered, and Hematology consulted 09/02 - Hgb 7.0 - will order one more unit of pRBC - no gross GI bleed at this time noted - folic acid supplement started - periph. smear - pending 09/03 -discussed with hematology, plan for GI bleed scan 09/04 -peripheral smear - The peripheral blood smear shows normochromic, normocytic appearing erythrocytes without significant anisopoikilocytosis. No significant number of schistocytes or spherocytes is identified. Polychromatophilic cells (a subset of reticulocytes) are noted. Leukocytes appear normal in number, relative distribution and morphology. Platelets are normal in number and are unremarkable in appearance. The CBC shows a HGB of 7.0 with normal MCV and depressed MCHC. Serum iron is low but ferritin is normal. B12 and folate are unremarkable. No overt changes of a myelodysplastic syndrome or hemolytic anemia are seen. The reviewed findings are consistent with a hypochromic, normocytic anemia. Patients with renal disease and iron deficiency may show a maintained ferritin level. If clinically indicated, evaluation of RET-He (available at [facility]) may be useful for further evaluation of iron deficiency. Unfortunately patient cannot undergo bleeding scan due to his weight. Discussed with hematology, plan for Venofer 300 today, and then again in 48 hours CHERYL, d/t ATN Starks catheter now, baseline UA, monitor creatinine response to IVF CT abd/ pelvis - abnormal imaging of kidneys Of note patient reports having CHERYL and being hospitalized for it in [place] Renal ultrasound ordered, nephrology consulted, appreciate their input 1. No renal calculi, hydronephrosis or solid renal mass lesions identified by ultrasound. Please note however that the study is limited secondary to patient body habitus. 2. Bilateral simple and complex renal cysts. 3. Bilateral diffuse cortical thinning with decreased corticomedullary differentiation compatible with chronic medical renal disease. - Diuresis w/ IV lasix, nephrology following Elevated troponin -secondary to illness above, no chest pain Echo obtained -very technically limited due to patient's body habitus. Grossly normal LV systolic function without all wall segments able to be visualized. Hyperglycemia -likely prediabetes, hemoglobin A1c of 5.31 July 2022 as per outpatient records - monitor blood sugar while inpt Ongoing tobacco abuse - counseling Nicotine patch Hypertension, stable Hyperlipidemia, statin noncompliance morbid obesity hx gout/rheumatoid arthritis chronic back pain medication noncompliance as per records DVT prophylaxis. SCDs Re: GI bleed Full code Mrs. Rima Bowie - contact # [phone]. Admission and Anticipated Discharge Date Admission Date: August 29, 2022 Subjective Pt seen in follow up of anemia, GI bleed, resp. failure Pt w/ morbid obesity, obesity hypovent. syndrome required bipap, now on NC awake and able to answer questions appropriately S/p EGD and colonoscopy Denies abdominal pain. Denies fevers chills, chest pain, shortness of breath, nausea vomiting. Reports pain in his joints due to arthritis Also reports history of CHERYL when he was in the hospital in [place] Pt is tolerating diet Plan was for bleeding scan today - but pt's weight is above the limit Discussed w/ Dr. Veras - will order venofer Review of Systems Review of Systems: All systems reviewed & are unremarkable except as noted in Subjective Physical Exam Physical Exam: Constitutional: Morbidly obese M in NAD, on NC Eyes: EOMI, PERRL. Conjunctivae are normal. Anicteric sclera. Neck: thick short neck Respiratory: No use of accessory muscles.Minimal crackles, no wheezing Cardiovascular: Regular rate and rhythm. No murmurs. No edema. Gastrointestinal: Normal bowel sounds, soft, obese nontender and nondistended. Musculoskeletal: Moves all extremities. Skin: No rashes, warm dry and intact. Neurologic: Speech fluent. Follows commands. Answers appropriately. Results & Data Results & Data ([facility]) Vital Signs (Past 12 Hours) Vital Signs Temp Pulse Pulse Resp BP Pulse Ox O2 Del Method 09/04/22 07:24 36.4 C L 91 H 20 131/82 97 Nasal Cannula 09/04/22 04:21 36.5 C 95 H 18 134/87 96 BiPAP 09/04/22 02:49 95 H 22 97 09/04/22 00:30 19 97 09/04/22 00:51 36.8 C 94 H 18 150/70 H 95 Room Air 09/03/22 22:56 98 H 09/03/22 20:00 Nasal Cannula 09/03/22 19:56 36.8 C 79 18 142/73 H 96 Room Air O2 Flow Rate FiO2 09/04/22 07:24 2 09/04/22 04:21 09/04/22 02:49 35 09/04/22 00:30 35 09/04/22 00:51 09/03/22 22:56 09/03/22 20:00 2 09/03/22 19:56 Laboratory Results 09/04/22 09/04/22 09/03/22 Range/Units 07:21 07:15 20:12 Sodium 141 (136-145) mmol/L Potassium 3.7 (3.5-5.1) mmol/L Chloride 104 (98-107) mmol/L Carbon Dioxide 31 (21-32) mmol/L Anion Gap 6 (3-11) BUN 61 H (6-23) mg/dl Creatinine 2.86 H (0.6-1.4) mg/dl Est Cr Clr Drug Dosing 53.4 ml/min Est GFR ( Amer) 27.3 ml/min Est GFR (Non-Af Amer) 23.5 ml/min BUN/Creatinine Ratio 21.3 H (10-20) Glucose 98 (70-99(Fasting)) mg/dl POC Glucose 109 H 196 H (70-99) mg/dl Calcium 8.3 L (8.5-10.1) mg/dl Phosphorus 3.4 (2.5-4.9) mg/dl Magnesium 1.8 (1.7-2.4) mg/dl Ferritin Pending 09/03/22 09/03/22 Range/Units 16:27 11:29 Sodium (136-145) mmol/L Potassium (3.5-5.1) mmol/L Chloride (98-107) mmol/L Carbon Dioxide (21-32) mmol/L Anion Gap (3-11) BUN (6-23) mg/dl Creatinine (0.6-1.4) mg/dl Est Cr Clr Drug Dosing ml/min Est GFR ( Amer) ml/min Est GFR (Non-Af Amer) ml/min BUN/Creatinine Ratio (10-20) Glucose (70-99(Fasting)) mg/dl POC Glucose 197 H 153 H (70-99) mg/dl Calcium (8.5-10.1) mg/dl Phosphorus (2.5-4.9) mg/dl Magnesium (1.7-2.4) mg/dl Ferritin Medications Administered Current Inpatient Medications Acetaminophen (Acetaminophen 325 Mg Tab) 650 mg PO Q4H PRN PRN Reason: Mild Pain or Fever Stop: 09/28/22 07:58 Last Admin: 09/02/22 17:11 Dose: 650 mg Folic Acid (Folic Acid 1 Mg Tab) [facility] [place] Stop: 10/02/22 11:59 Last Admin: 09/03/22 08:59 Dose: 1 mg Furosemide (Furosemide 40 Mg/4 Ml Vial) 100 mg IV BID17 [facility] Stop: 10/03/22 16:59 Last Admin: 09/03/22 17:36 Dose: 100 mg Pantoprazole Sodium 40 mg/ (Syringe) 10 mls @ 5 mls/min IV BID [facility] Stop: 09/28/22 22:29 Last Admin: 09/03/22 20:03 Dose: 5 mls/min Cefepime HCl 2,000 mg/ Syringe 20 mls @ 5 mls/min IV Q8H [facility]; Protocol Stop: 09/05/22 19:59 Last Admin: 09/04/22 03:47 Dose: 5 mls/min Metoprolol Tartrate (Metoprolol Tartrate 1 Mg/Ml Vial) 2.5 mg IV Q6H PRN PRN Reason: HR > 110 Stop: 09/28/22 11:59 Oxycodone HCl (Oxycodone Hcl Ir 5 Mg Tab (Immediate Release)) 5 mg PO Q6H PRN PRN Reason: Moderate to Severe Pain Stop: 09/16/22 10:39 Last Admin: 09/04/22 00:41 Dose: 5 mg Potassium Chloride (Potassium Chloride Crtab 20 Meq Tabcr) 40 meq PO [facility] Stop: 10/04/22 08:59 Prednisone (Prednisone 10 Mg Tablet) 30 mg PO [facility] Stop: 10/03/22 08:59 Last Admin: 09/03/22 08:58 Dose: 30 mg Verapamil HCl (Verapamil Hcl 240 Mg Tabcr) 240 mg PO [facility] Stop: 09/28/22 08:59 Last Admin: 09/02/22 07:55 Dose: 240 mg
[2022-09-04] MEDS: PANTOprazole 40 MG in SYRINGE 0 ML IV SCH ×2 (07:54→20:04)
[2022-09-04] MEDS: predniSONE 10 MG TABLET PO SCH (07:54)
[2022-09-04] MEDS: FOLIC ACID 1 MG TAB PO SCH (07:55)
[2022-09-04] MEDS: FUROSEMIDE 40 MG/4 ML VIAL IV SCH ×2 (07:55→16:50)
[2022-09-04] MEDS: POTASSIUM CHLORIDE CRTAB 20 MEQ TABCR PO SCH (07:55)
[2022-09-04 08:03] LABS: BUN Creatinine Ratio 21.3 (10-20); Calcium 8.3 mg/dl (8.5-10.1); Creatinine Clr Calc Pharmacy 53.4 ml/min; Est GFR (African American) 27.3 ml/min; Est GFR (Non-African American) 23.5 ml/min; Magnesium 1.8 mg/dl (1.7-2.4); Phosphorus 3.4 mg/dl (2.5-4.9); Potassium 3.7 mmol/L (3.5-5.1)
[2022-09-04 08:16] LABS: Ferritin 105.1 ng/ml (8-388)
--- NOTE | 2022-09-04 08:38 | Nephrology Progress Note ---
Date of Service September 04, 2022 Assessment & Plan (1) CHERYL (acute kidney injury): Plan: Stage 2 nonoliguric acute kidney injury due to ischemic ATN in setting of acute blood loss anemia. Admission creatinine of 3.6; baseline 1.4. Second episode of severe CHERYL, last one Stage 3 / peak creat 4.6 prior to arrival in [place] 06/2022. up slightly at 2.9 and pt 4.3L negative. Patient is grossly volume overloaded. He received 1 dose of IV Lasix yesterday. -lowered lasix 100 mg IV bid17 > 60 mg IV bid17, first dose this PM; no lasix dose this am -Potassium chloride 40 mEq daily to continue with extra 40 mEq dose today -Daily BMP and avoid nephrotoxins (2) Anemia: Plan: Patient with anemia due to GI bleed. Hemoglobin of 8.9 yesterday; no lab so far today. Continue to monitor and transfuse as needed for hemoglobin less than 7. Admission and Anticipated Discharge Date Admission Date: August 29, 2022 Subjective no interval events. Feels 'blah" 4.3 L negative when I saw him at about 915. ongoing edema pedal Review of Systems Review of Systems: All systems reviewed & are unremarkable except as noted in Subjective Physical Exam Constitutional: well developed, well nourished, + obese and cooperative; no acute distress Eyes: EOM intact bilaterally ENMT: Ears: no external ear abnormality Nose: no external nose abnormality Mouth: + dry oral mucous membranes Neck: no nuchal rigidity Respiratory: + labored breathing (slight); no respiratory distress Auscultation: + diminished lung sounds and + rhonchi Cardiovascular: Rate/Rhythm: regular rate and regular rhythm Extremities: + edema (3+ pedal; trade dep) Gastrointestinal (Abdomen): Inspection/Auscultation: normal bowel sounds Percussion/Palpation: abdomen soft; abdomen nontender Musculoskeletal: Extremities: strength 5/5 throughout Skin: no rashes, warm and dry Neurologic: [place], fluent speech, no tremor Genitourinary: crenshaw+ Results & Data ([facility]) Vital Signs (Past 12 Hours) Vital Signs Temp Pulse Pulse Resp BP Pulse Ox O2 Del Method 09/04/22 07:24 36.4 C L 91 H 20 131/82 97 Nasal Cannula 09/04/22 04:21 36.5 C 95 H 18 134/87 96 BiPAP 09/04/22 02:49 95 H 22 97 09/04/22 00:30 19 97 09/04/22 00:51 36.8 C 94 H 18 150/70 H 95 Room Air 09/03/22 22:56 98 H O2 Flow Rate FiO2 09/04/22 07:24 2 09/04/22 04:21 09/04/22 02:49 35 09/04/22 00:30 35 09/04/22 00:51 09/03/22 22:56 Laboratory Results 09/03/22 07:11 09/04/22 07:15
[2022-09-04 09:08] LABS: Hematocrit (blood only) 27.8 % (40.1-51.0); Hemoglobin 8.7 g/dl (14.0-18.0); Mean Corpuscular Hemoglobin 29.4 pg (25.0-34.0); Mean Corpuscular Hgb Conc 31.3 g/dL (32.0-36.0); Mean Corpuscular Volume 93.9 fL (80.0-100.0); Nucleated RBC # (auto) 0.06 K/uL (0-0); Nucleated RBC % (auto) 0.8 %; Platelet Count 207 K/uL (130-400); RDW Coefficient of Variation 14.7 % (11.5-14.5); RDW Standard Deviation 50.5 fL (36.4-46.3); Red Blood Count 2.96 M/uL (4.63-6.08); White Blood Count 7.92 K/ul (4.8-10.8)
[2022-09-04] MEDS ORDERED: DOCUSATE SODIUM 100 MG CAP PO ONE (10:20)
[2022-09-04] MEDS ORDERED: IRON SUCROSE 300 MG in SODIUM CHLORIDE 0.9% 250 ML IV ONE (10:30)
[2022-09-04] MEDS ORDERED: POTASSIUM CHLORIDE 10 MEQ TABCR PO ONE (13:00)
[2022-09-05] MEDS: CEFEPIME 2,000 MG in SYRINGE 0 ML IV SCH ×2 (03:43→16:03)
[2022-09-05 07:22] LABS: Hematocrit (blood only) 27.8 % (40.1-51.0); Hemoglobin 8.8 g/dl (14.0-18.0); Mean Corpuscular Hemoglobin 29.4 pg (25.0-34.0); Mean Corpuscular Hgb Conc 31.7 g/dL (32.0-36.0); Mean Platelet Volume 9.9 fL (9.4-12.4); Nucleated RBC # (auto) 0.05 K/uL (0-0); Nucleated RBC % (auto) 0.5 %; Platelet Count 261 K/uL (130-400); RDW Coefficient of Variation 14.6 % (11.5-14.5); Red Blood Count 2.99 M/uL (4.63-6.08); White Blood Count 9.15 K/ul (4.8-10.8)
[2022-09-05 07:52] LABS: BUN Creatinine Ratio 26.9 (10-20); Calcium 8.9 mg/dl (8.5-10.1); Creatinine Clr Calc Pharmacy 70.9 ml/min; Est GFR (African American) 37.6 ml/min; Est GFR (Non-African American) 32.5 ml/min; Magnesium 1.8 mg/dl (1.7-2.4); Phosphorus 3.1 mg/dl (2.5-4.9)
--- NOTE | 2022-09-05 08:33 | Hospitalist Progress Note ---
Date of Service September 05, 2022 Assessment & Plan (1) Encephalopathy: Plan: Multifactorial : Respiratory failure, possible OHS, untreated RUTH (patient still has to go for a sleep study as per .) Acute on chronic anemia secondary to L GIB rule out C. difficile ARF on CKD Rule out UTI, possible sepsis Troponin elevation secondary to illness Encephalopathy resolved Continues to use suppl. O2 via NC Needs to use bipap given OHS, RUTH Pulmonary consult Re: Respiratory failure, probable RUTH, appreciate their input UA negative blood cultx - negative Anemia/ GI bleed FOBT pending + reported blood in stool stool studies, c. diff pending Received 6 units of pRBC so far Anemia work-up, transfuse PRBC to maintain hemoglobin greater than 7 and or for symptomatic anemia IV PPI GI consulted s/p EGD Findings: The examined esophagus was normal. The entire examined stomach was normal. Two 8 mm sessile polyps were found in the second portion of the duodenum. Biopsies were taken with a cold forceps for histology. Verification of patient identification for the specimen was done by the physician and nurse using the patient's name and date. Impression: - No evidence of UGI bleeding. - Normal esophagus. - Normal stomach. - Two duodenal polyps, likely hyperplastic. Biopsied. Recommendation: - Await pathology results. s/p Colonoscopy Findings: The perianal and digital rectal examinations were normal. The terminal ileum appeared normal. A 10 mm polyp was found in the rectum. The polyp was sessile. The polyp was removed with a cold snare. Resection and retrieval were complete. Verification of patient identification for the specimen was done by the physician and nurse using the patient's name and date. To prevent bleeding after the polypectomy, three hemostatic clips were successfully placed (MR conditional). Scattered small and large-mouthed diverticula were found in the sigmoid colon. Non-bleeding internal hemorrhoids were found during retroflexion. The hemorrhoids were small. Impression: - Preparation of the colon was fair. - The examined portion of the ileum was normal. - One 10 mm polyp in the rectum, removed with a cold snare. Resected and retrieved. Clips (MR conditional) were placed. - Diverticulosis in the sigmoid colon. - Non-bleeding internal hemorrhoids. Recommendation: - Return patient to [facility] for ongoing care. - Advance diet as tolerated. - Await pathology results. - Repeat colonoscopy in 5 years for surveillance. - Recall GI if needed. COMMENT: No evidence of GI bleeding, consider Hematology evaluation. 09/01 Peripheral smear ordered, and Hematology consulted 09/02 - Hgb 7.0 - will order one more unit of pRBC - no gross GI bleed at this time noted - folic acid supplement started - periph. smear - pending 09/03 -discussed with hematology, plan for GI bleed scan 09/04 -peripheral smear - The peripheral blood smear shows normochromic, normocytic appearing erythrocytes without significant anisopoikilocytosis. No significant number of schistocytes or spherocytes is identified. Polychromatophilic cells (a subset of reticulocytes) are noted. Leukocytes appear normal in number, relative distribution and morphology. Platelets are normal in number and are unremarkable in appearance. The CBC shows a HGB of 7.0 with normal MCV and depressed MCHC. Serum iron is low but ferritin is normal. B12 and folate are unremarkable. No overt changes of a myelodysplastic syndrome or hemolytic anemia are seen. The reviewed findings are consistent with a hypochromic, normocytic anemia. Patients with renal disease and iron deficiency may show a maintained ferritin level. If clinically indicated, evaluation of RET-He (available at [facility]) may be useful for further evaluation of iron deficiency. Unfortunately patient cannot undergo bleeding scan due to his weight. Discussed with hematology, plan for Venofer 300 today, and then again in 48 hours CHERYL, d/t ATN Starks catheter now, baseline UA, monitor creatinine response to IVF CT abd/ pelvis - abnormal imaging of kidneys Of note patient reports having CHERYL and being hospitalized for it in [place] Renal ultrasound ordered, nephrology consulted, appreciate their input 1. No renal calculi, hydronephrosis or solid renal mass lesions identified by ultrasound. Please note however that the study is limited secondary to patient body habitus. 2. Bilateral simple and complex renal cysts. 3. Bilateral diffuse cortical thinning with decreased corticomedullary differentiation compatible with chronic medical renal disease. - Diuresis w/ IV lasix, nephrology following Elevated troponin -secondary to illness above, no chest pain Echo obtained -very technically limited due to patient's body habitus. Grossly normal LV systolic function without all wall segments able to be visualized. Hyperglycemia -likely prediabetes, hemoglobin A1c of 5.31 July 2022 as per outpatient records - monitor blood sugar while inpt Ongoing tobacco abuse - counseling Nicotine patch Hypertension, stable Hyperlipidemia, statin noncompliance morbid obesity hx gout/rheumatoid arthritis chronic back pain medication noncompliance as per records DVT prophylaxis. SCDs Re: GI bleed Full code Mrs. Rima Bowie - contact # [phone]. Admission and Anticipated Discharge Date Admission Date: August 29, 2022 Subjective Pt seen in follow up of anemia, GI bleed, resp. failure Pt w/ morbid obesity, obesity hypovent. syndrome required bipap, now on NC awake and able to answer questions appropriately S/p EGD and colonoscopy Denies abdominal pain. Denies fevers chills, chest pain, shortness of breath, nausea vomiting. Reports pain in his joints due to arthritis Plan was for bleeding scan - but pt's weight is above the limit for the [facility] Nephrology following - cont. diuresis Plan for venofer tmrw Review of Systems Review of Systems: All systems reviewed & are unremarkable except as noted in Subjective Physical Exam Physical Exam: Constitutional: Morbidly obese M in NAD, on NC Eyes: EOMI, PERRL. Conjunctivae are normal. Anicteric sclera. Neck: thick short neck Respiratory: No use of accessory muscles.Minimal crackles, no wheezing Cardiovascular: Regular rate and rhythm. No murmurs. No edema. Gastrointestinal: Normal bowel sounds, soft, obese nontender and nondistended. Musculoskeletal: Moves all extremities. Skin: No rashes, warm dry and intact. Neurologic: Speech fluent. Follows commands. Answers appropriately. Results & Data Results & Data ([facility]) Vital Signs (Past 12 Hours) Vital Signs Temp Pulse Pulse Resp BP BP Pulse Ox 09/05/22 08:11 36.5 C 106 H 20 155/100 H 100 09/05/22 04:55 87 09/05/22 02:41 36.6 C 94 H 19 165/116 H 99 09/05/22 03:46 95 H 18 95 09/04/22 23:43 88 16 95 09/04/22 23:08 36.5 C 91 H 19 153/100 H 97 09/04/22 20:32 92 H 16 92 O2 Del Method O2 Flow Rate FiO2 09/05/22 08:11 Nasal Cannula 2 09/05/22 04:55 09/05/22 02:41 BiPAP 09/05/22 03:46 35 09/04/22 23:43 35 09/04/22 23:08 BiPAP 09/04/22 20:32 35 Laboratory Results 09/05/22 09/05/22 09/05/22 Range/Units 07:01 06:57 06:57 WBC 9.15 (4.8-10.8) K/ul RBC 2.99 L (4.63-6.08) M/uL Hgb 8.8 L (14.0-18.0) g/dl Hct 27.8 L (40.1-51.0) % MCV 93.0 (80.0-100.0) fL MCH 29.4 (25.0-34.0) pg MCHC 31.7 L (32.0-36.0) g/dL RDW Std Deviation 50.0 H (36.4-46.3) fL RDW Coeff of Cheryl 14.6 H (11.5-14.5) % Plt Count 261 (130-400) K/uL MPV 9.9 (9.4-12.4) fL Absolute Nucleated RBC 0.05 H (0-0) K/uL Nucleated RBC % (auto) 0.5 % Peripher Smr Path Cons Sodium 144 (136-145) mmol/L Potassium 4.0 (3.5-5.1) mmol/L Chloride 105 (98-107) mmol/L Carbon Dioxide 34 H (21-32) mmol/L Anion Gap 5 (3-11) BUN 59 H (6-23) mg/dl Creatinine 2.19 H D (0.6-1.4) mg/dl Est Cr Clr Drug Dosing 70.9 ml/min Est GFR ( Amer) 37.6 ml/min Est GFR (Non-Af Amer) 32.5 ml/min BUN/Creatinine Ratio 26.9 H (10-20) Glucose 81 (70-99(Fasting)) mg/dl POC Glucose 92 (70-99) mg/dl Calcium 8.9 (8.5-10.1) mg/dl Phosphorus 3.1 (2.5-4.9) mg/dl Magnesium 1.8 (1.7-2.4) mg/dl 09/04/22 09/04/22 09/04/22 Range/Units 20:53 16:12 11:23 WBC (4.8-10.8) K/ul RBC (4.63-6.08) M/uL Hgb (14.0-18.0) g/dl Hct (40.1-51.0) % MCV (80.0-100.0) fL MCH (25.0-34.0) pg MCHC (32.0-36.0) g/dL RDW Std Deviation (36.4-46.3) fL RDW Coeff of Cheryl (11.5-14.5) % Plt Count (130-400) K/uL MPV (9.4-12.4) fL Absolute Nucleated RBC (0-0) K/uL Nucleated RBC % (auto) % Peripher Smr Path Cons Sodium (136-145) mmol/L Potassium (3.5-5.1) mmol/L Chloride (98-107) mmol/L Carbon Dioxide (21-32) mmol/L Anion Gap (3-11) BUN (6-23) mg/dl Creatinine (0.6-1.4) mg/dl Est Cr Clr Drug Dosing ml/min Est GFR ( Amer) ml/min Est GFR (Non-Af Amer) ml/min BUN/Creatinine Ratio (10-20) Glucose (70-99(Fasting)) mg/dl POC Glucose 142 H 153 H 113 H (70-99) mg/dl Calcium (8.5-10.1) mg/dl Phosphorus (2.5-4.9) mg/dl Magnesium (1.7-2.4) mg/dl 09/04/22 09/02/22 Range/Units 08:45 06:37 WBC 7.92 (4.8-10.8) K/ul RBC 2.96 L (4.63-6.08) M/uL Hgb 8.7 L (14.0-18.0) g/dl Hct 27.8 L (40.1-51.0) % MCV 93.9 (80.0-100.0) fL MCH 29.4 (25.0-34.0) pg MCHC 31.3 L (32.0-36.0) g/dL RDW Std Deviation 50.5 H (36.4-46.3) fL RDW Coeff of Cheryl 14.7 H (11.5-14.5) % Plt Count 207 (130-400) K/uL MPV 10.0 (9.4-12.4) fL Absolute Nucleated RBC 0.06 H (0-0) K/uL Nucleated RBC % (auto) 0.8 % Peripher Smr Path Cons Sodium (136-145) mmol/L Potassium (3.5-5.1) mmol/L Chloride (98-107) mmol/L Carbon Dioxide (21-32) mmol/L Anion Gap (3-11) BUN (6-23) mg/dl Creatinine (0.6-1.4) mg/dl Est Cr Clr Drug Dosing ml/min Est GFR ( Amer) ml/min Est GFR (Non-Af Amer) ml/min BUN/Creatinine Ratio (10-20) Glucose (70-99(Fasting)) mg/dl POC Glucose (70-99) mg/dl Calcium (8.5-10.1) mg/dl Phosphorus (2.5-4.9) mg/dl Magnesium (1.7-2.4) mg/dl Medications Administered Current Inpatient Medications Acetaminophen (Acetaminophen 325 Mg Tab) 650 mg PO Q4H PRN PRN Reason: Mild Pain or Fever Stop: 09/28/22 07:58 Last Admin: 09/02/22 17:11 Dose: 650 mg Folic Acid (Folic Acid 1 Mg Tab) 1 mg PO QAM [facility] Stop: 10/02/22 11:59 Last Admin: 09/04/22 07:55 Dose: 1 mg Furosemide (Furosemide 40 Mg/4 Ml Vial) 60 mg IV BID17 [facility] Stop: 10/04/22 16:59 Last Admin: 09/04/22 16:50 Dose: 60 mg Pantoprazole Sodium 40 mg/ (Syringe) 10 mls @ 5 mls/min IV BID [facility] Stop: 09/28/22 22:29 Last Admin: 09/04/22 20:04 Dose: 5 mls/min Cefepime HCl 2,000 mg/ Syringe 20 mls @ 5 mls/min IV Q12H [facility]; Protocol Stop: 09/05/22 19:59 Last Admin: 09/05/22 03:43 Dose: 5 mls/min Metoprolol Tartrate (Metoprolol Tartrate 1 Mg/Ml Vial) 2.5 mg IV Q6H PRN PRN Reason: HR > 110 Stop: 09/28/22 11:59 Oxycodone HCl (Oxycodone Hcl Ir 5 Mg Tab (Immediate Release)) 5 mg PO Q6H PRN PRN Reason: Moderate to Severe Pain Stop: 09/16/22 10:39 Last Admin: 09/04/22 00:41 Dose: 5 mg Potassium Chloride (Potassium Chloride Crtab 20 Meq Tabcr) 40 meq PO [facility] Stop: 10/04/22 08:59 Last Admin: 09/04/22 07:55 Dose: 40 meq Prednisone (Prednisone 10 Mg Tablet) 30 mg PO [facility] Stop: 10/03/22 08:59 Last Admin: 09/04/22 07:54 Dose: 30 mg Verapamil HCl (Verapamil Hcl 240 Mg Tabcr) 240 mg PO [facility] Stop: 09/28/22 08:59 Last Admin: 09/02/22 07:55 Dose: 240 mg
[2022-09-05] MEDS: PANTOprazole 40 MG in SYRINGE 0 ML IV SCH (08:51)
[2022-09-05] MEDS: FOLIC ACID 1 MG TAB PO SCH (08:51)
[2022-09-05] MEDS: FUROSEMIDE 40 MG/4 ML VIAL IV SCH ×2 (08:52→17:34)
[2022-09-05] MEDS: POTASSIUM CHLORIDE CRTAB 20 MEQ TABCR PO SCH (08:58)
[2022-09-05] MEDS: oxyCODONE HCL IR 5 MG TAB (IMMEDIATE RELEASE) PO PRN ×2 (09:05→20:29)
[2022-09-05] MEDS ORDERED: ONDANSETRON INJ 2 MG/ML 2 ML VIAL IV SCH (09:30)
[2022-09-05] MEDS: predniSONE 10 MG TABLET PO SCH (09:58)
[2022-09-05] MEDS ORDERED: POLYETHYLENE (MIRALAX) 17 GM PACK PO PRN (10:53)
--- NOTE | 2022-09-05 11:14 | Nephrology Progress Note ---
Date of Service September 05, 2022 Assessment & Plan (1) CHERYL (acute kidney injury): Plan: Improving now Stage 2 nonoliguric acute kidney injury due to ischemic ATN in s etting of acute blood loss anemia. Admission creatinine of 3.6; baseline 1.4. Second episode of severe CHERYL, last one Stage 3 / peak creat 4.6 prior to arrival in [place] 06/2022. improving creatinine after holding lasix and resuming at lower dose. pt 5.9L negative past 24 hrs but remains grossly volume overloaded. He received 1 dose of IV Lasix yesterday. -lowered lasix on 09/04 from 100 mg IV bid17 (had 3 doses, last one yesterday AM )> 60 mg IV bid17 > tolerating and to continue -Potassium chloride 40 mEq daily to continue -Daily BMP and avoid nephrotoxins (2) Anemia: Plan: Patient with anemia due to GI bleed. Hemoglobin of 8.8 today; no lab so far today. Continue to monitor and transfuse as needed for hemoglobin less than 7. Admission and Anticipated Discharge Date Admission Date: August 29, 2022 Subjective seen on rounds at about noon; at bedside; pt c/o back pain. notes L arm oozing; no n/v, notes no change in edema, no sob Review of Systems Review of Systems: All systems reviewed & are unremarkable except as noted in Subjective Physical Exam Constitutional: well developed, well nourished, + acute distress (mild distress/twisting to find position w/ back pain), + obese and cooperative Eyes: EOM intact bilaterally ENMT: Ears: no external ear abnormality Nose: no external nose abnormality Mouth: + dry oral mucous membranes Neck: no nuchal rigidity Respiratory: + labored breathing (slight); no respiratory distress Auscultation: + diminished lung sounds and + rhonchi Cardiovascular: Rate/Rhythm: regular rate and regular rhythm Extremities: + edema (2+ pedal; trade dep) Gastrointestinal (Abdomen): Inspection/Auscultation: normal bowel sounds Percussion/Palpation: abdomen soft; abdomen nontender Musculoskeletal: Extremities: strength 5/5 throughout Skin: no rashes, warm and dry Results & Data ([facility]) Vital Signs (Past 12 Hours) Vital Signs Temp Pulse Pulse Resp BP BP Pulse Ox 09/05/22 10:43 36.6 C 108 H 20 114/92 91 09/05/22 08:00 96 H 09/05/22 08:11 36.5 C 106 H 20 155/100 H 100 09/05/22 04:55 87 09/05/22 02:41 36.6 C 94 H 19 165/116 H 99 09/05/22 03:46 95 H 18 95 09/04/22 23:43 88 16 95 O2 Del Method O2 Flow Rate FiO2 09/05/22 10:43 Room Air 09/05/22 08:00 09/05/22 08:11 Nasal Cannula 2 09/05/22 04:55 09/05/22 02:41 BiPAP 09/05/22 03:46 35 09/04/22 23:43 35 Laboratory Results 09/05/22 06:57 09/05/22 06:57
[2022-09-05] MEDS: DOCUSATE SODIUM 100 MG CAP PO SCH ×2 (12:28→20:32)
[2022-09-05] MEDS ORDERED: MICONAZOLE NITRATE POWDER 43 GM EXT PRN (12:31)
[2022-09-06] MEDS ORDERED: PANTOprazole 40 MG TAB PO STA (00:41)
[2022-09-06] MEDS: PANTOprazole 40 MG in SYRINGE 0 ML IV SCH ×3 (00:43→20:09)
[2022-09-06 06:35] LABS: Hematocrit (blood only) 29.6 % (40.1-51.0); Hemoglobin 9.2 g/dl (14.0-18.0); Mean Corpuscular Hemoglobin 29.2 pg (25.0-34.0); Mean Corpuscular Hgb Conc 31.1 g/dL (32.0-36.0); Nucleated RBC # (auto) 0.03 K/uL (0-0); Nucleated RBC % (auto) 0.4 %; Platelet Count 270 K/uL (130-400); RDW Coefficient of Variation 14.8 % (11.5-14.5); RDW Standard Deviation 51.1 fL (36.4-46.3); Red Blood Count 3.15 M/uL (4.63-6.08)
--- NOTE | 2022-09-06 06:54 | Ultrasound Report ---
LEFT UPPER EXTREMITY VENOUS DOPPLER ULTRASOUND CLINICAL HISTORY: swelling and tender. dvt? COMPARISON STUDY: No previous studies for comparison. TECHNIQUE: Sonography of the deep venous system of the left upper extremity was performed. FINDINGS: The left internal jugular, subclavian and axillary veins are patent. There is deep venous t hrombus within the mid to distal left brachial vein. There is superficial thrombus within the left ba silic vein. IMPRESSION: Deep venous gas within the left brachial vein and superficial thrombus within the left b asilic vein. ACT 112: Negative or not required by law. Electronically signed by: Shan Pedroza M.D. 09/06/2022 6:52 AM
[2022-09-06 06:59] LABS: BUN Creatinine Ratio 28.5 (10-20); Calcium 9.1 mg/dl (8.5-10.1); Creatinine Clr Calc Pharmacy 72.1 ml/min; Est GFR (African American) 38.7 ml/min; Est GFR (Non-African American) 33.4 ml/min; Potassium 4.3 mmol/L (3.5-5.1)
[2022-09-06] MEDS ORDERED: IRON SUCROSE 300 MG in SODIUM CHLORIDE 0.9% 250 ML IV ONE (09:00)
[2022-09-06] MEDS ORDERED: predniSONE 20 MG TAB PO SCH (09:00)
[2022-09-06] MEDS: FOLIC ACID 1 MG TAB PO SCH (09:02)
[2022-09-06] MEDS: DOCUSATE SODIUM 100 MG CAP PO SCH ×2 (09:02→20:10)
[2022-09-06] MEDS: FUROSEMIDE 40 MG/4 ML VIAL IV SCH ×2 (09:02→17:02)
[2022-09-06] MEDS: POTASSIUM CHLORIDE CRTAB 20 MEQ TABCR PO SCH (09:10)
[2022-09-06] MEDS: CYANOCOBALAMIN (B-12) 100 MCG TABLET PO SCH (09:56)
[2022-09-06] MEDS ORDERED: Heparin IV Adult Wt-Based Low-Dose *NO* Bolus Protocol IV SCH (11:54)
--- NOTE | 2022-09-06 12:04 | Nephrology Progress Note ---
Date of Service September 06, 2022 Assessment & Plan (1) CHERYL (acute kidney injury): Plan: stable now Stage 2 nonoliguric acute kidney injury due to ischemic ATN in sett ing of acute blood loss anemia. Admission creatinine of 3.6; baseline 1.4. Second episode of severe CHERYL, last one Stage 3 / peak creat 4.6 prior to arrival in [place] 06/2022. improving creatinine after holding lasix and resuming at lower dose. pt 4.2L negative past 24 hrs but remains grossly volume overloaded. -lowered lasix on 09/04 from 100 mg IV bid17 (had 3 doses total )> 60 mg IV bid17 > tolerating and to continue -Potassium chloride 40 mEq daily to continue -Daily BMP and avoid nephrotoxins -HTN noted > believe at least in part d/t pain +/- steroids; would observe for now continuing CCB, prn BB; defer to primary service on pain mgt (2) Anemia: Plan: Patient with anemia due to GI bleed. Hemoglobin of 9.2 today. Continue to monitor and transfuse as needed for hemoglobin less than 7. Admission and Anticipated Discharge Date Admission Date: August 29, 2022 Subjective denies pain in back or worse sob. on heparin gtt for LUE DVT Review of Systems Review of Systems: All systems reviewed & are unremarkable except as noted in Subjective Physical Exam Constitutional: well developed, well nourished, + acute distress (mild distress/twisting to find position though denies pain), + obese and cooperative Eyes: EOM intact bilaterally ENMT: Ears: no external ear abnormality Nose: no external nose abnormality Mouth: + dry oral mucous membranes Neck: no nuchal rigidity Respiratory: + labored breathing (slight); no respiratory distress Auscultation: + diminished lung sounds and + rhonchi Cardiovascular: Rate/Rhythm: regular rate and regular rhythm Extremities: + edema (2+ pedal; trade dep) Gastrointestinal (Abdomen): Inspection/Auscultation: normal bowel sounds Percussion/Palpation: abdomen soft; abdomen nontender Musculoskeletal: Extremities: strength 5/5 throughout Skin: no rashes, warm and dry Neurologic: [place], generalized weakness; answers appropriately but mostly in monosyllables Results & Data ([facility]) Vital Signs (Past 12 Hours) Vital Signs Temp Pulse Pulse Pulse Resp BP BP 09/06/22 06:06 97 H 09/06/22 08:33 36.8 C 109 H 19 185/115 H 09/06/22 03:14 36.5 C 102 H 16 158/106 H Pulse Ox O2 Del Method 09/06/22 06:06 09/06/22 08:33 92 Room Air 09/06/22 03:14 92 Room Air Laboratory Results 09/06/22 06:10 09/06/22 06:10
[2022-09-06] MEDS: HEPARIN SODIUM/DEXTROSE 25,000 UNITS/500 ML BAG IV SCH (13:20)
--- NOTE | 2022-09-06 13:38 | Hospitalist Progress Note ---
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 No recent antibiotic treatment. Patient was increasingly sleepy as per at presentation. Patient with hemoglobin of 5.9 at admission and received 2 units PRBC transfusion in the ED. Of note, patient moved back to [place] from [place] last June 2022, patient had 3 hospital confinements at [place] for kidney failure and hypoxia prior to return to [place] per his . He is being managed for the following: Likely metabolic encephalopathy: Multifactorial likely secondary to respiratory failure -possible OHS/untreated RUTH [patient has still to go for a sleep study as per ], acute on chronic anemia secondary to lower GI bleed, ARF on CKD. Admitting UA and Bl Cx negative. Plan- continue to treat underlying cause. Patient has been more oriented lately, oriented x2 today. OOB x 2-3 times a day. Resp failure w/ hypercapnia; Obesity hypoventilation syndrome: Has evidence of chronic compensated hypercapnic respiratory failure based on ABG. BiPAP when sleeping. Pulmonology evaluated and recommends outpatient BiPAP and follow-up with sleep clinic. Continue with BiPAP overnight and while sleeping. Acute on chronic anemia Acute blood loss anemia Likely lower GI bleeding Patient presented with complaints of bloody diarrhea, hemoglobin of 5.9 at admission Status post 6 unit PRBC transfusion so far. Iron level low. GI evaluated, status post EGD and colonoscopy. 08/31 EGD: No evidence of UGI bleeding, 2 duodenal polyps likely hyperplastic were biopsied with a cold forceps. --> HPE: 2 fragments of polypoid duodenal mucosa with nonspecific duodenitis. Negative for malignancy. 09/01 colonoscopy: The perianal and digital rectal exam were normal. A 10 mm polyp was found in the rectum which was removed with a cold snare and clips [MR conditional] were placed. HPE result is tubular adenoma, negative for high- grade dysplasia. Also diverticulosis in the sigmoid colon were noted. Nonbleeding internal hemorrhoids were noted. Recommendation is to repeat colonoscopy in 5 years for surveillance. Since no evidence of GI bleeding, recommended hematology evaluation. 09/01 peripheral smear: Reviewed FOBT/stool studies pending. Transfuse hemoglobin if less than 7 or for symptomatic anemia. Last transfusion needed on 09/02, hemoglobin has been stable, closer to his baseline today. Continue with folic acid and vitamin B12. Hematology evaluated, recommends GI bleeding scan [patient cannot undergo bleeding scan due to his weight], recommends iron transfusion Now that patient is on IV heparin drip [see below], monitor H&H every 8 hours closely, continue with Protonix IV for the time being, transition to p.o. in next 1 to 2 days. Acute DVT: Per patient's , patient has not been mobile since October 2021, he used to be able to walk with cane prior to that. Patient was not on any DVT prophylaxis because of GI bleed. Patient complained of left arm pain and was scanned for DVT on 09/05/2022 evening which came back positive for DVT in mid to distal left brachial vein. Per night attending, he reached out to Dr. Enamorado who recommended to take the line out but IV team evaluated and did not take out the line as it was above the DVT and the line was working. Patient is a very hard stick due to morbid obesity. Risks associated with starting and not starting anticoagulation discussed with patient's over the phone 09/06, she favored to go with anticoagulation with close monitoring of H&H. Updated GI team and hematology team, will proceed with low-dose heparin drip without bolus, will keep PTT towards low normal range, monitor H&H every 6-8 hours. Patient's made aware that we will need to stop anticoagulation if there is no evidence of GI bleed. She voiced understanding and was agreeable to the plan of care. CHERYL over CKD: Patient reports having CHERYL being hospitalized for it in [place]. Admitting CT abdomen pelvis with abnormal imaging of kidneys US renal: No renal calculi or hydronephrosis or solid renal mass. Bilateral simple and complex renal cyst. Bilateral diffuse cortical thinning with decreased corticomedullary differentiation compatible with chronic medical renal disease. Likely secondary to ischemic ATN in setting of acute blood loss anemia, baseline creatinine of around 1.4, admitting creatinine of 2.06, peaked at 3.66, currently downtrending. Nephrology on board, managing diuresis, appreciate recommendation. Troponin elevation: Secondary to illness, no chest pain, echo obtained with rodriguez castañeda normal LV systolic function without all wall segments able to be visualized. Other chronic medical conditions: Ongoing tobacco abuse, HTN, HLD, morbid obesity, gout/rheumatoid arthritis, chronic back pain, medication noncompliance ---> continue home meds as able DVT prophylaxis: Currently on heparin drip Full code Patient's Rima Bowie: [phone], given a phone call 09/06 and updated about patient's current status in detail, answered all her questions to her satisfaction, she voiced understanding and was agreeable to the plan of care. Admission and Anticipated Discharge Date Admission Date: August 29, 2022 Subjective Patient seen and examined at bedside as a follow-up of encephalopathy, respiratory failure possible OHS/untreated RUTH, acute on chronic anemia secondar y to lower GI bleed, ARF on CKD. Patient was lying in bed, sleepy, oriented x2, denies any pain or discomfort, minimally conversive and not participating in much of question answers. ROS was n/a in detail. Patient's was given a phone call and updated in detail regarding patient's current status and need to start him on heparin drip given left upper extremity DVT. She was made aware of risks associated with initiation of heparin given his recent lower GI bleed and also risks associated with not putting him on any anticoagulation given the nature of DVT to propagate on the background that patient is very nonmobile. Physical Exam Physical Exam: GENERAL: Sleepy and oriented x2. NAD, on RA. Morbidly obese. HEENT: No pallor, no icterus. Pupils equal, round and reactive to light. Oral mucosa moist. NECK: No JVD, no neck masses. Thick short neck. HEART: S1 and S2 heard. tachycardia. No murmur, no gallop. RESPIRATORY SYSTEM: Normal AP diameter. No accessory muscle use. No wheezing, no crackles. Decreased breath sounds. ABDOMEN: Soft, bowel sounds present, nontender, no distention. CENTRAL NERVOUS SYSTEM: No facial droop. not able to participate actively w/ exam. Moves extremities. EXTREMITIES: 1+ BLE edema, no erythema seen. UC w/ light yellow urine collection +. Results & Data Results & Data ([facility]) Vital Signs (Past 12 Hours) Vital Signs Temp Pulse Pulse Pulse Resp BP BP 09/06/22 09:00 09/06/22 06:06 97 H 09/06/22 08:33 36.8 C 109 H 19 185/115 H 09/06/22 03:14 36.5 C 102 H 16 158/106 H Pulse Ox O2 Del Method 09/06/22 09:00 Room Air 09/06/22 06:06 09/06/22 08:33 92 Room Air 09/06/22 03:14 92 Room Air
[2022-09-06] MEDS: LABETALOL HCL IV 5 MG/ML 20ML IV PRN (20:08)
[2022-09-06 20:47] LABS: Hematocrit (blood only) 31.4 % (40.1-51.0); Hemoglobin 9.5 g/dl (14.0-18.0)
[2022-09-06 21:14] LABS: Partial Thromboplastin Ratio 1.1; Partial Thromboplastin Time 29.7 Seconds (21.0-31.0)
[2022-09-06] MEDS ORDERED: LABETALOL HCL IV 5 MG/ML 20ML IV STA (22:10)
[2022-09-06] MEDS ORDERED: NITROGLYCERIN 2% OINTMENT 30GM TUBE EXT SCH (22:15)
[2022-09-06] MEDS ORDERED: HEPARIN SOD (PORCINE) 1000 UNIT/ML IV ONE (22:15)
[2022-09-06] MEDS: NITROGLYCERIN 2% OINTMENT 30GM TUBE EXT SCH (22:31)
[2022-09-06 23:19] LABS: Hematocrit (blood only) 29.9 % (40.1-51.0); Hemoglobin 9.2 g/dl (14.0-18.0)
[2022-09-06] MEDS ORDERED: hydrALAZINE HCL 20 MG/ML VIAL IV STA (23:50)
[2022-09-07] MEDS: NITROGLYCERIN 2% OINTMENT 30GM TUBE EXT SCH ×4 (03:38→22:09)
[2022-09-07 04:38] LABS: Hematocrit (blood only) 29.8 % (40.1-51.0); Hemoglobin 9.2 g/dl (14.0-18.0); Mean Corpuscular Hemoglobin 29.4 pg (25.0-34.0); Mean Corpuscular Hgb Conc 30.9 g/dL (32.0-36.0); Mean Corpuscular Volume 95.2 fL (80.0-100.0); Mean Platelet Volume 10.2 fL (9.4-12.4); Nucleated RBC # (auto) 0.06 K/uL (0-0); Nucleated RBC % (auto) 0.7 %; Platelet Count 292 K/uL (130-400); RDW Coefficient of Variation 15.1 % (11.5-14.5); RDW Standard Deviation 51.9 fL (36.4-46.3); Red Blood Count 3.13 M/uL (4.63-6.08); White Blood Count 8.74 K/ul (4.8-10.8)
[2022-09-07 04:51] LABS: Partial Thromboplastin Ratio 1.3; Partial Thromboplastin Time 36.8 Seconds (21.0-31.0)
[2022-09-07 05:02] LABS: BUN Creatinine Ratio 25.5 (10-20); Calcium 9.2 mg/dl (8.5-10.1); Creatinine Clr Calc Pharmacy 64.5 ml/min; Est GFR (African American) 33.9 ml/min; Est GFR (Non-African American) 29.2 ml/min; Magnesium 1.9 mg/dl (1.7-2.4); Phosphorus 2.9 mg/dl (2.5-4.9); Potassium 4.3 mmol/L (3.5-5.1)
[2022-09-07] MEDS ORDERED: HEPARIN SOD (PORCINE) 1000 UNIT/ML IV ONE (05:30)
[2022-09-07] MEDS: HEPARIN SODIUM/DEXTROSE 25,000 UNITS/500 ML BAG IV SCH ×2 (07:04→22:08)
[2022-09-07] MEDS: LABETALOL HCL IV 5 MG/ML 20ML IV PRN (07:26)
[2022-09-07] MEDS: CYANOCOBALAMIN (B-12) 100 MCG TABLET PO SCH (09:36)
[2022-09-07] MEDS: FUROSEMIDE 40 MG/4 ML VIAL IV SCH ×2 (09:36→16:48)
[2022-09-07] MEDS: PANTOprazole 40 MG in SYRINGE 0 ML IV SCH ×2 (09:36→20:35)
[2022-09-07] MEDS: DOCUSATE SODIUM 100 MG CAP PO SCH ×2 (09:36→20:34)
[2022-09-07] MEDS: carvediloL 12.5 MG TAB PO SCH ×2 (09:36→20:34)
[2022-09-07] MEDS: FOLIC ACID 1 MG TAB PO SCH (09:36)
[2022-09-07] MEDS: POTASSIUM CHLORIDE CRTAB 20 MEQ TABCR PO SCH (09:40)
--- NOTE | 2022-09-07 09:52 | Nephrology Progress Note ---
Date of Service September 07, 2022 Assessment & Plan (1) CHERYL (acute kidney injury): Plan: labile/slightly worse Stage 2 nonoliguric acute kidney injury due to ischemic ATN in setting of acute blood loss anemia. Admission creatinine of 3.6; baseline 1.4. Second episode of severe CHERYL, last one Stage 3 / peak creat 4.6 prior to arrival in [place] 06/2022. improving creatinine after holding lasix and resuming at lower dose. pt 4.2L negative past 24 hrs but remains grossly volume overloaded. -lowered lasix on 09/04 from 100 mg IV bid17 (had 3 doses total )> 60 mg IV bid17 to continue for now -Potassium chloride 40 mEq daily to continue -Daily BMP and avoid nephrotoxins -HTN noted > believe at least in part d/t pain +/- steroids; would observe for now continuing CCB, prn BB; defer to primary service on pain mgt (2) Anemia: Plan: Patient with anemia due to GI bleed. Hemoglobin of 9.2 again today. Continue to monitor and transfuse as needed for hemoglobin less than 7. Admission and Anticipated Discharge Date Admission Date: August 29, 2022 Subjective tells me he feels "blah" but can't tell me much more detail on that. no N; breathing stable Review of Systems Review of Systems: All systems reviewed & are unremarkable except as noted in Subjective Physical Exam Constitutional: well developed, well nourished, + obese and cooperative; no acute distress Eyes: EOM intact bilaterally ENMT: Ears: no external ear abnormality Nose: no external nose abnormality Mouth: + dry oral mucous membranes Neck: no nuchal rigidity Respiratory: + labored breathing (slight); no respiratory distress Auscultation: + diminished lung sounds and + rhonchi Cardiovascular: Rate/Rhythm: regular rhythm and + tachycardic Extremities: + edema (2+ pedal; trade dep) Gastrointestinal (Abdomen): Inspection/Auscultation: normal bowel sounds Percussion/Palpation: abdomen soft; abdomen nontender Musculoskeletal: Extremities: strength 5/5 throughout Skin: no rashes, warm and dry Results & Data ([facility]) Vital Signs (Past 12 Hours) Vital Signs Temp Pulse Pulse Pulse Pulse Resp BP 09/07/22 09:31 143/111 H 09/07/22 07:04 36.6 C 112 H 22 175/122 H 09/07/22 03:32 36.9 C 107 H 24 130/103 H 09/07/22 01:02 152/107 H 09/07/22 01:00 173/105 H 09/06/22 22:03 84 09/06/22 23:43 161/128 H 09/06/22 23:27 36.4 C L 102 H 18 148/110 H Pulse Ox O2 Del Method 09/07/22 09:31 09/07/22 07:04 100 CPAP 09/07/22 03:32 91 Room Air 09/07/22 01:02 09/07/22 01:00 09/06/22 22:03 09/06/22 23:43 09/06/22 23:27 91 Room Air Laboratory Results 09/07/22 04:20 09/07/22 04:20
[2022-09-07] MEDS: VERAPAMIL HCL 240 MG TABCR PO SCH (11:11)
[2022-09-07 12:33] LABS: Partial Thromboplastin Ratio 1.9
[2022-09-07 12:34] LABS: Partial Thromboplastin Time 52.2 Seconds (21.0-31.0)
[2022-09-07 14:32] LABS: Hematocrit (blood only) 28.3 % (40.1-51.0); Hemoglobin 8.8 g/dl (14.0-18.0)
[2022-09-07] MEDS: ACETAMINOPHEN 325 MG TAB PO PRN (14:39)
--- NOTE | 2022-09-07 15:24 | Hospitalist Progress Note ---
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 No recent antibiotic treatment. Patient was increasingly sleepy as per at presentation. Patient with hemoglobin of 5.9 at admission and received 2 units PRBC transfusion in the ED. Of note, patient moved back to [place] from [place] last June 2022, patient had 3 hospital confinements at [place] for kidney failure and hypoxia prior to return to [place] per his . He is being managed for the following: Likely metabolic encephalopathy: Multifactorial likely secondary to respiratory failure -possible OHS/untreated RUTH [patient has still to go for a sleep study as per ], acute on chronic anemia secondary to lower GI bleed, ARF on CKD. Admitting UA and Bl Cx negative. Plan- continue to treat underlying cause. Patient has been more oriented lately, oriented x3 today. OOB x 2-3 times a day. c/w BPAP overnight and while sleeping. Resp failure w/ hypercapnia; Obesity hypoventilation syndrome: Has evidence of chronic compensated hypercapnic respiratory failure based on ABG. BiPAP when sleeping. Pulmonology evaluated and recommends outpatient BiPAP and follow-up with sleep clinic. Continue with BiPAP overnight and while sleeping. Acute on chronic anemia Acute blood loss anemia Likely lower GI bleeding Patient presented with complaints of bloody diarrhea, hemoglobin of 5.9 at admission Status post 6 unit PRBC transfusion so far. Iron level low. GI evaluated, status post EGD and colonoscopy. 08/31 EGD: No evidence of UGI bleeding, 2 duodenal polyps likely hyperplastic were biopsied with a cold forceps. --> HPE: 2 fragments of polypoid duodenal mucosa with nonspecific duodenitis. Negative for malignancy. 09/01 colonoscopy: The perianal and digital rectal exam were normal. A 10 mm polyp was found in the rectum which was removed with a cold snare and clips [MR conditional] were placed. HPE result is tubular adenoma, negative for high- grade dysplasia. Also diverticulosis in the sigmoid colon were noted. Nonbleeding internal hemorrhoids were noted. Recommendation is to repeat colonoscopy in 5 years for surveillance. Since no evidence of GI bleeding, recommended hematology evaluation. 09/01 peripheral smear: Reviewed FOBT/stool studies pending. Transfuse hemoglobin if less than 7 or for symptomatic anemia. Last transfusion needed on 09/02, hemoglobin has been stable, closer to his baseline today. Continue with folic acid and vitamin B12. Hematology evaluated, recommends GI bleeding scan [patient cannot undergo bleeding scan due to his weight], recommends iron transfusion---on 09/06 and 09/08. Now that patient is on IV heparin drip [see below], monitor H&H every 8 hours closely, continue with Protonix IV for the time being, transition to p.o. in next 1 to 2 days. Acute DVT: Per patient's , patient has not been mobile since October 2021, he used to be able to walk with cane prior to that. Patient was not on any DVT prophylaxis because of GI bleed. Patient complained of left arm pain and was scanned for DVT on 09/05/2022 evening which came back positive for DVT in mid to distal left brachial vein. Per night attending, he reached out to Dr. Enamorado who recommended to take the line out but IV team evaluated and did not take out the line as it was above the DVT and the line was working. Patient is a very hard stick due to morbid obesity. Risks associated with starting and not starting anticoagulation discussed with patient's over the phone 09/06, she favored to go with anticoagulation with close monitoring of H&H. Updated GI team and hematology team 09/06, c/w with low-dose heparin drip without bolus, will keep PTT towards low normal range, monitor H&H every 6-8 hours. CHERYL over CKD: Patient reports having CHERYL being hospitalized for it in [place]. Admitting CT abdomen pelvis with abnormal imaging of kidneys US renal: No renal calculi or hydronephrosis or solid renal mass. Bilateral simple and complex renal cyst. Bilateral diffuse cortical thinning with decreased corticomedullary differentiation compatible with chronic medical renal disease. Likely secondary to ischemic ATN in setting of acute blood loss anemia, baseline creatinine of around 1.4, admitting creatinine of 2.06, peaked at 3.66, currently 2.39. Nephrology on board, managing diuresis, appreciate recommendation. Troponin elevation: Secondary to illness, no chest pain, echo obtained with grossly normal LV systolic function without all wall segments able to be visualized. Other chronic medical conditions: Ongoing tobacco abuse, HTN, HLD, morbid obesity, gout/rheumatoid arthritis, chronic back pain, medication noncompliance ---> continue home meds as able, resume home BP meds. Follow BP, DC nitropaste w/ good control of BP. DVT prophylaxis: Currently on heparin drip Full code Patient's Rima Bowie: [phone], given a phone call 09/06 and updated about patient's current status in detail, answered all her questions to her satisfaction, she voiced understanding and was agreeable to the plan of care. Admission and Anticipated Discharge Date Admission Date: August 29, 2022 Subjective Patient seen and examined at bedside as a follow-up of encephalopathy, respiratory failure possible OHS/untreated RUTH, acute on chronic anemia secondary to lower GI bleed, ARF on CKD. Patient was lying in bed, on room air, NAD, reports no pain or discomfort, is more conversive and is oriented today, reports not moving around much since around October time. Patient states that he is afraid of his balance while walking. Per RN, he used BiPAP overnight which could be the reason he is more oriented and conversive in the morning. Communicated with RN to continue with BiPAP while sleeping and in the night. Patient denies any pain anywhere in the body except for some mild pain in his left upper extremity where DVT was diagnosed. Patient reports not feeling as hungry, has not eaten anything since yesterday per RN. Offers no other complaints. No bowel movement since eighth. Overnight Bp was elevated, was started on nitropaste. Physical Exam Physical Exam: GENERAL: Alert and oriented x3. NAD, on RA. Morbidly obese. HEENT: No pallor, no icterus. Pupils equal, round and reactive to light. Oral mucosa moist. NECK: No JVD, no neck masses. Thick short neck. HEART: S1 and S2 heard. tachycardia. No murmur, no gallop. RESPIRATORY SYSTEM: Normal AP diameter. No accessory muscle use. No wheezing, no crackles. Decreased breath sounds. ABDOMEN: Soft, bowel sounds present, nontender, no distention. CENTRAL NERVOUS SYSTEM: No facial droop. not able to participate actively w/ exam. Moves extremities. EXTREMITIES: 1+ BLE edema, no erythema seen. UC w/ light yellow urine collection +. Results & Data Results & Data ([facility]) Vital Signs (Past 12 Hours) Vital Signs Temp Pulse Pulse Pulse Pulse Resp BP 09/07/22 07:28 09/07/22 11:09 36.5 C 103 H 17 102/70 09/07/22 06:10 114 H 09/07/22 09:31 143/111 H 09/07/22 07:04 36.6 C 112 H 22 175/122 H 09/07/22 03:32 36.9 C 107 H 24 130/103 H Pulse Ox O2 Del Method 09/07/22 07:28 Room Air 09/07/22 11:09 91 Room Air 09/07/22 06:10 09/07/22 09:31 09/07/22 07:04 100 CPAP 09/07/22 03:32 91 Room Air
[2022-09-07] MEDS: oxyCODONE HCL IR 5 MG TAB (IMMEDIATE RELEASE) PO PRN (20:35)
[2022-09-08] MEDS: NITROGLYCERIN 2% OINTMENT 30GM TUBE EXT SCH (04:14)
[2022-09-08] MEDS ORDERED: IRON SUCROSE 400 MG in SODIUM CHLORIDE 0.9% 250 ML IV SCH (07:00)
[2022-09-08 08:09] LABS: Hematocrit (blood only) 29.4 % (40.1-51.0); Hemoglobin 9.1 g/dl (14.0-18.0); Mean Corpuscular Hemoglobin 29.6 pg (25.0-34.0); Mean Corpuscular Volume 95.8 fL (80.0-100.0); Nucleated RBC # (auto) 0.02 K/uL (0-0); Nucleated RBC % (auto) 0.3 %; Platelet Count 302 K/uL (130-400); RDW Coefficient of Variation 15.6 % (11.5-14.5); RDW Standard Deviation 53.6 fL (36.4-46.3); Red Blood Count 3.07 M/uL (4.63-6.08); White Blood Count 6.53 K/ul (4.8-10.8)
[2022-09-08 08:31] LABS: BUN Creatinine Ratio 19.8 (10-20); Creatinine Clr Calc Pharmacy 50.1 ml/min; Est GFR (African American) 24.9 ml/min; Est GFR (Non-African American) 21.5 ml/min
[2022-09-08] MEDS: DOCUSATE SODIUM 100 MG CAP PO SCH ×2 (08:54→21:02)
[2022-09-08] MEDS: FUROSEMIDE 40 MG/4 ML VIAL IV SCH ×2 (08:54→16:57)
[2022-09-08] MEDS: FOLIC ACID 1 MG TAB PO SCH (08:54)
[2022-09-08] MEDS: VERAPAMIL HCL 240 MG TABCR PO SCH (08:54)
[2022-09-08] MEDS: CYANOCOBALAMIN (B-12) 100 MCG TABLET PO SCH (08:54)
[2022-09-08] MEDS: carvediloL 12.5 MG TAB PO SCH ×2 (08:54→21:03)
[2022-09-08] MEDS: PANTOprazole 40 MG in SYRINGE 0 ML IV SCH (08:55)
[2022-09-08] MEDS: POTASSIUM CHLORIDE CRTAB 20 MEQ TABCR PO SCH (08:57)
[2022-09-08 09:35] LABS: Partial Thromboplastin Ratio 1.5; Partial Thromboplastin Time 42.4 Seconds (21.0-31.0)
[2022-09-08] MEDS: HEPARIN SODIUM/DEXTROSE 25,000 UNITS/500 ML BAG IV SCH ×3 (12:24→12:25)
--- NOTE | 2022-09-08 13:01 | Hospitalist Progress Note ---
Date of Service September 08, 2022 Assessment & Plan (1) Anemia: Plan: Hemoglobin continues seems to be stabilizing even with the cautious initiation of anticoagulation and he does not seem to have a dramatic ongoing GI losses. Had reviewed with hospitalist team at the beginning of the week and recommended 2 doses of Venofer totaling 600 mg of intravenous iron which was given this week. Ferritin was actually over 100 at that time suggesting that we are "catching up" with his iron repletion. Persistent anemia in part may now reflect his renal insufficiency. May be worthwhile to recheck ferritin again next week and if still less than 200 consider additional iron infusion. Also need to be aware that there is a degree of iatrogenic iron depletion with frequent diagnostic phlebotomy, to the extent that blood testing can be streamlined that would help to lessen that issue. (2) DVT (deep venous thrombosis): Plan: Left upper extremity DVT in the setting would usually be a consequence of pr eviously placed intravenous lines. CT of the chest/abdomen/pelvis did not immediately suggest any underlying malignancy that might be inducing an acquired hypercoagulable syndrome. Dilemma is balancing the need for anticoagulation versus concerns over potential recurrent GI bleeding. Fortunately, he has done well on the cautiously dose controlled heparin. In making determinations about a transition to oral therapy, his renal dysfunction and concerns over ongoing bleeding color treatment choices. While apixaban can be used in patients with intermediate renal dysfunction, there would be some delayed excretion and also limited ability to reverse if there was acute bleeding. Traditional oral warfarin is admittedly cumbersome but at least can be specifically dosed to achieve a therapeutic effect despite weight out of the normal range and has much easier reversibility should acute bleeding occur. The needed testing is admittedly cumbersome, he might be a particularly good candidate for finger prick INR testing either at home or at least in a [id number] setting. Plan Transfusion needs seem to have subsided and he at least is partially iron replete, repeat ferritin next week may guide the need for further iron infusion but at this time his anemia may be more agricultural sales representative of his renal insufficiency Can reassess ferritin in a.m. for additional infusion to keep that in the range of approximately 200 given that renal insufficiency Need a balanced approach to anticoagulation as detailed above the keeps him protected against more severe VTE events and yet gives flexibility should acute bleeding develop. Warfarin with finger prick INR testing would be an attractive way to balance those needs in a gentleman for whom repeat diagnostic venous access has been difficult and in whom we wish to keep iatrogenic iron depletion to a minimum Admission and Anticipated Discharge Date Admission Date: August 29, 2022 Subjective Hemoglobin levels improving, now with left upper extremity DVT Physical Exam Physical Exam: Vital signs stable Results & Data Results & Data ([facility]) Vital Signs (Past 12 Hours) Vital Signs Temp Pulse Pulse Resp BP Pulse Ox O2 Del Method 09/08/22 11:34 36.8 C 59 L 20 120/84 99 Nasal Cannula 09/08/22 09:16 Nasal Cannula 09/08/22 08:47 36.4 C L 81 15 127/86 90 Nasal Cannula 09/08/22 06:09 81 09/08/22 04:03 36.5 C 76 20 124/89 93 Nasal Cannula O2 Flow Rate 09/08/22 11:34 09/08/22 09:16 2 09/08/22 08:47 2 09/08/22 06:09 09/08/22 04:03 2 PG Care Time/CCT Total # of Minutes Spent Total Time Spent with Patient: Total time spent is greater than 50% in coordination of care (as documented) at patient's floor/unit and/or counseling patient: Coding Level of Care Code 03294 Subseq Hosp Care Lvl 1 Diagnoses Anemia D64.9 DVT (deep venous thrombosis) I82.409
[2022-09-08] MEDS: oxyCODONE HCL IR 5 MG TAB (IMMEDIATE RELEASE) PO PRN ×2 (13:07→21:02)
--- NOTE | 2022-09-08 15:41 | Hospitalist Progress Note ---
Date of Service September 08, 2022 Assessment & Plan (1) CHERYL (acute kidney injury): (2) Anemia: (3) Acute GI bleeding: Plan 56-year-old gentleman with PMH of HTN, HLD, CKD [baseline creatinine 1.4], chronic anemia [baseline hemoglobin 9], morbid obesity, possible RUTH as per records, gout, rheumatoid arthritis, chronic back pain, medication noncompliance as per records, ongoing tobacco abuse presented to our ED 08/29/2022 with complaint of feeling sick for 3 days ago [employer] associated with nausea, vomiting, bloody diarrhea and increasing weakness. No recent antibiotic treatment. Patient was increasingly sleepy as per at presentation. Patient with hemoglobin of 5.9 at admission and received 2 units PRBC transfusion in the ED. Of note, patient moved back to [place] from [place] last June 2022, patient had 3 hospital confinements at [place] for kidney failure and hypoxia prior to return to [place] per his . He is being managed for the following: Likely metabolic encephalopathy: Multifactorial likely secondary to respiratory failure -possible OHS/untreated RUTH [patient has still to go for a sleep study as per ], acute on chronic anemia secondary to lower GI bleed, ARF on CKD. Admitting UA and Bl Cx negative. Plan- continue to treat underlying cause. Patient has been more oriented lately, oriented x3 today. OOB x 2-3 times a day. c/w BPAP overnight and while sleeping. Resp failure w/ hypercapnia; Obesity hypoventilation syndrome: Has evidence of chronic compensated hypercapnic respiratory failure based on ABG. BiPAP when sleeping. Pulmonology evaluated and recommends outpatient BiPAP and follow-up with sleep clinic. Continue with BiPAP overnight and while sleeping. Acute on chronic anemia Acute blood loss anemia Likely lower GI bleeding Patient presented with complaints of bloody diarrhea, hemoglobin of 5.9 at admission Status post 6 unit PRBC transfusion so far. Iron level low. GI evaluated, status post EGD and colonoscopy. 08/31 EGD: No evidence of UGI bleeding, 2 duodenal polyps likely hyperplastic were biopsied with a cold forceps. --> HPE: 2 fragments of polypoid duodenal mucosa with nonspecific duodenitis. Negative for malignancy. 09/01 colonoscopy: The perianal and digital rectal exam were normal. A 10 mm polyp was found in the rectum which was removed with a cold snare and clips [MR conditional] were placed. HPE result is tubular adenoma, negative for high- grade dysplasia. Also diverticulosis in the sigmoid colon were noted. Nonbleeding internal hemorrhoids were noted. Recommendation is to repeat colonoscopy in 5 years for surveillance. Since no evidence of GI bleeding, recommended hematology evaluation. 09/01 peripheral smear: Reviewed FOBT/stool studies pending. Transfuse hemoglobin if less than 7 or for symptomatic anemia. Last transfusion needed on 09/02, hemoglobin has been stable, closer to his baseline lately. Continue with folic acid and vitamin B12. Hematology evaluated, recommends GI bleeding scan [patient cannot undergo bleeding scan due to his weight], recommends iron transfusion---on 09/06 and 09/08. Repeat ferritin level on Sunday and see if needs further iron transfusion. Will change iv ppi to po ppi. Acute DVT: Per patient's , patient has not been mobile since October 2021, he used to be able to walk with cane prior to that. Patient was not on any DVT prophylaxis because of GI bleed. Patient complained of left arm pain and was scanned for DVT on 09/05/2022 evening which came back positive for DVT in mid to distal left brachial vein. Per night attending, he reached out to Dr. Enamorado who recommended to take the line out but IV team evaluated and did not take out the line as it was above the DVT and the line was working. Patient is a very hard stick due to morbid obesity. Risks associated with starting and not starting anticoagulation discussed with patient's over the phone 09/06, she favored to go with anticoagulation with close monitoring of H&H. Updated GI team and hematology team 09/06, c/w with low-dose heparin drip without bolus, will keep PTT towards low normal range, monitor H&H closely. Hb has been stable, oral anticoagulation options discussed with patient, pt favored to go with warfarin which seems reasonable given if the need might arise for rapid reversal due to h/o GI bleed. 09/08 WArfarin dose started at 5 mg, will monitor pt/inr daily, will stop heparin when therapeutic inr reached. CHERYL over CKD: Patient reports having CHERYL being hospitalized for it in [place]. Admitting CT abdomen pelvis with abnormal imaging of kidneys US renal: No renal calculi or hydronephrosis or solid renal mass. Bilateral simple and complex renal cyst. Bilateral diffuse cortical thinning with decreased corticomedullary differentiation compatible with chronic medical renal disease. Likely secondary to ischemic ATN in setting of acute blood loss anemia, baseline creatinine of around 1.4, admitting creatinine of 2.06, peaked at 3.66, currently 3.08. Nephrology on board, managing diuresis, appreciate recommendation. Troponin elevation: Secondary to illness, no chest pain, echo obtained with grossly normal LV systolic function without all wall segments able to be visualized. Other chronic medical conditions: Ongoing tobacco abuse, HTN, HLD, morbid obesity, gout/rheumatoid arthritis, chronic back pain, medication noncompliance ---> continue home meds as able, BP fairly under control. DVT prophylaxis: Currently on heparin drip, warfarin started. Full code Patient's Rima Bowie: [phone], given a phone call 09/06 and updated about patient's current status in detail, answered all her questions to her satisfaction, she voiced understanding and was agreeable to the plan of care . Admission and Anticipated Discharge Date Admission Date: August 29, 2022 Subjective Patient seen and examined at bedside as a follow-up of encephalopathy, respiratory failure possible OHS/untreated RUTH, acute on chronic anemia secondary to lower GI bleed, ARF on CKD. Patient was lying in bed, on room air, NAD, reports no pain or discomfort, is conversive and is oriented. Patient states that he is afraid of his balance while walking. Per RN, he used BiPAP overnight for sometime. Communicated with RN to continue with BiPAP while sleeping and in the night. Patient denies any pain anywhere in the body except for some mild pain in his left upper extremity where DVT was diagnosed. Patient started eating better. Offers no other complaints. No bowel movement since eighth. Physical Exam Physical Exam: GENERAL: Alert and oriented x3. NAD, on RA. Morbidly obese. HEENT: No pallor, no icterus. Pupils equal, round and reactive to light. Oral mucosa moist. NECK: No JVD, no neck masses. Thick short neck. HEART: S1 and S2 heard. tachycardia. No murmur, no gallop. RESPIRATORY SYSTEM: Normal AP diameter. No accessory muscle use. No wheezing, no crackles. Decreased breath sounds. ABDOMEN: Soft, bowel sounds present, nontender, no distention. CENTRAL NERVOUS SYSTEM: No facial droop. not able to participate actively w/ exam. Moves extremities. EXTREMITIES: trace BLE edema, no erythema seen. UC w/ light yellow urine collection +. Results & Data Results & Data ([facility]) Vital Signs (Past 12 Hours) Vital Signs Temp Pulse Pulse Resp BP Pulse Ox O2 Del Method 09/08/22 11:34 36.8 C 59 L 20 120/84 99 Nasal Cannula 09/08/22 09:16 Nasal Cannula 09/08/22 08:47 36.4 C L 81 15 127/86 90 Nasal Cannula 09/08/22 06:09 81 09/08/22 04:03 36.5 C 76 20 124/89 93 Nasal Cannula O2 Flow Rate 09/08/22 11:34 09/08/22 09:16 2 09/08/22 08:47 2 09/08/22 06:09 09/08/22 04:03 2
[2022-09-08 16:42] LABS: INR 1.2 (0.9-1.1); Partial Thromboplastin Ratio 2.5; Prothrombin Time 12.2 Seconds (9.0-12.0)
[2022-09-08 16:51] LABS: Partial Thromboplastin Time 68.6 Seconds (21.0-31.0)
[2022-09-08] MEDS: WARFARIN SOD 5 MG TAB PO SCH (16:56)
--- NOTE | 2022-09-08 18:33 | Nephrology Progress Note ---
Date of Service September 08, 2022 Assessment & Plan (1) CHERYL (acute kidney injury): Plan: markedly worse Stage 2 nonoliguric acute kidney injury due to ischemic ATN in setting of acute blood loss anemia. Admission creatinine of 3.6; baseline 1.4. Second episode of severe CHERYL, last one Stage 3 / peak creat 4.6 prior to arrival in [place] 06/2022. improving creatinine after holding lasix and resuming at lower dose. pt 11L negative on admission but remains grossly volume overloaded. -lasix on hold; lowered lasix on 09/04 from 100 mg IV bid17 (had 3 doses total )> 60 mg IV bid17 until evening 09/08 b/c of worsening renal function >> hold until renal function improves some >ua ordered -Potassium chloride 40 mEq daily held -Daily BMP and avoid nephrotoxins -HTN noted > believe at least in part d/t pain +/- steroids; would observe for now continuing CCB, prn BB; defer to primary service on pain mgt (2) Anemia: Plan: Patient with anemia due to GI bleed; now on AC d/t LUE DVT. Hemoglobin of 9.1 today. Continue to monitor and transfuse as needed for hemoglobin less than 7. Admission and Anticipated Discharge Date Admission Date: August 29, 2022 Subjective no acute interval events. denies worse breathing or uncontrolled pain Review of Systems Review of Systems: All systems reviewed & are unremarkable except as noted in Subjective Physical Exam Constitutional: well developed, well nourished, + obese and cooperative; no acute distress Eyes: EOM intact bilaterally ENMT: Ears: no external ear abnormality Nose: no external nose abnormality Mouth: + dry oral mucous membranes Neck: no nuchal rigidity Respiratory: + labored breathing (slight); no respiratory distress Auscultation: + diminished lung sounds Cardiovascular: Rate/Rhythm: regular rate, regular rhythm and + tachycardic Extremities: + edema (2+ pedal; trade dep) Gastrointestinal (Abdomen): Inspection/Auscultation: normal bowel sounds Percussion/Palpation: abdomen soft; abdomen nontender Musculoskeletal: Extremities: strength 5/5 throughout Skin: no rashes, warm and dry Results & Data ([facility]) Vital Signs (Past 12 Hours) Vital Signs Temp Pulse Pulse Resp BP Pulse Ox O2 Del Method 09/08/22 16:00 36.8 C 61 22 131/62 95 Nasal Cannula 12/16/22 14:29 54 L 09/08/22 11:34 36.8 C 59 L 20 120/84 99 Nasal Cannula 09/08/22 09:16 Nasal Cannula 09/08/22 08:47 36.4 C L 81 15 127/86 90 Nasal Cannula O2 Flow Rate 09/08/22 16:00 09/08/22 14:29 09/08/22 11:34 09/08/22 09:16 2 09/08/22 08:47 2 Laboratory Results 09/08/22 07:49 09/08/22 07:49
[2022-09-08 19:29] LABS: Appearance Urine Cloudy (Clear); Bilirubin Urine Negative (Negative); Blood Urine Trace (Negative); Color Urine Yellow; Epithelial Cell Urine Auto >30 /lpf (0-5); Glucose Urine UA Negative (Negative); Ketones Urine Negative (Negative); Leukocyte Esterase Urine Trace (Negative); Nitrite Urine Negative (Negative); Protein Urine Trace (Negative); Specific Gravity Urine 1.009 (1.000-1.030); Urobilinogen Urine Negative (Negative)
[2022-09-08 19:40] LABS: Amorphous Sediment Urine Present (None Prsent); Bacteria Urine Automated 1+ (Negative); RBC Urine Automated 0-4 /hpf (0-4)
[2022-09-08] MEDS: PANTOprazole 40 MG TAB PO SCH (21:02)
[2022-09-08] MEDS: ACETAMINOPHEN 325 MG TAB PO PRN (23:28)
[2022-09-08 23:40] LABS: Partial Thromboplastin Ratio 2.1
[2022-09-08 23:49] LABS: Partial Thromboplastin Time 58.7 Seconds (21.0-31.0)
[2022-09-09] MEDS: HEPARIN SODIUM/DEXTROSE 25,000 UNITS/500 ML BAG IV SCH ×2 (03:45→16:27)
[2022-09-09 05:27] LABS: Hematocrit (blood only) 28.6 % (40.1-51.0); Hemoglobin 8.7 g/dl (14.0-18.0); Mean Corpuscular Hemoglobin 29.7 pg (25.0-34.0); Mean Corpuscular Hgb Conc 30.4 g/dL (32.0-36.0); Mean Corpuscular Volume 97.6 fL (80.0-100.0); Mean Platelet Volume 9.6 fL (9.4-12.4); Nucleated RBC # (auto) 0.02 K/uL (0-0); Nucleated RBC % (auto) 0.4 %; Platelet Count 270 K/uL (130-400); RDW Coefficient of Variation 15.5 % (11.5-14.5); RDW Standard Deviation 54.6 fL (36.4-46.3); Red Blood Count 2.93 M/uL (4.63-6.08); White Blood Count 5.45 K/ul (4.8-10.8)
[2022-09-09 05:54] LABS: BUN Creatinine Ratio 19.5 (10-20); Calcium 8.5 mg/dl (8.5-10.1); Creatinine Clr Calc Pharmacy 50.1 ml/min; Est GFR (African American) 24.9 ml/min; Est GFR (Non-African American) 21.5 ml/min; Magnesium 1.9 mg/dl (1.7-2.4); Potassium 3.7 mmol/L (3.5-5.1)
[2022-09-09 06:00] LABS: INR 1.1 (0.9-1.1); Partial Thromboplastin Ratio 2.2; Prothrombin Time 12.1 Seconds (9.0-12.0)
[2022-09-09 06:38] LABS: Partial Thromboplastin Time 60.7 Seconds (21.0-31.0)
[2022-09-09 08:17] LABS: Base Excess ABG 10.1 mEq/L (-9-1.8); HCO3 ABG 37 mmol/L (19-24); Oxygen Saturation ABG 97.2 % (90-95); PCO2 ABG 55 mmHg (35-46); PO2 ABG 75 mmHg (80-95); pH ABG 7.43 (7.35-7.45)
[2022-09-09] MEDS: carvediloL 12.5 MG TAB PO SCH ×2 (08:25→20:22)
[2022-09-09] MEDS: DOCUSATE SODIUM 100 MG CAP PO SCH ×2 (08:26→20:22)
[2022-09-09] MEDS: VERAPAMIL HCL 240 MG TABCR PO SCH (08:26)
[2022-09-09] MEDS: CYANOCOBALAMIN (B-12) 100 MCG TABLET PO SCH (08:26)
[2022-09-09] MEDS: PANTOprazole 40 MG TAB PO SCH ×2 (08:26→20:22)
[2022-09-09] MEDS: FOLIC ACID 1 MG TAB PO SCH (08:26)
[2022-09-09 08:27] LABS: Allen Test Pos (Pos)
[2022-09-09] MEDS: oxyCODONE HCL IR 5 MG TAB (IMMEDIATE RELEASE) PO PRN (09:13)
--- NOTE | 2022-09-09 09:53 | Nephrology Progress Note ---
Date of Service September 09, 2022 Assessment & Plan (1) CHERYL (acute kidney injury): Plan: Markedly worse Stage 2 nonoliguric acute kidney injury due to ischemic ATN in setting of acute blood loss anemia. Admission creatinine of 3.6; baseline 1.4. Second episode of severe CHERYL, last one Stage 3 / peak creat 4.6 prior to arrival in [place] 06/2022. improving creatinine after holding lasix and resuming at lower dose. pt 11L negative on admission but remains grossly volume overloaded. -lasix on hold; lowered lasix on 09/04 from 100 mg IV bid17 (had 3 doses total )> 60 mg IV bid17 until evening 09/08 b/c of worsening renal function -Renal function have platued and UOP has improved, expect improvement - Continue to hold diuretic until renal function improves - Replace K to keep levels> 4. -Daily BMP and avoid nephrotoxins -HTN noted > believe at least in part d/t pain +/- steroids; would observe for now continuing CCB, prn BB; defer to primary service on pain mgt (2) Anemia: Plan: Patient with anemia due to GI bleed; now on AC d/t LUE DVT. Continue to monitor and transfuse as needed for hemoglobin less than 7. Admission and Anticipated Discharge Date Admission Date: August 29, 2022 Subjective no acute interval events. denies worse breathing or uncontrolled pain Review of Systems Review of Systems: All other systems were reviewed and negative except as noted in HPI Physical Exam Physical Exam: General Appearance: no apparent distress Head: normocephalic, Atraumatic Eyes: normal inspection, EOMI Neck: supple, Trachea midline Respiratory/Chest: Decreased breath sounds, basal crackles, No accessory muscle use Cardiovascular: S1, S2, No murmur Abdomen/GI:Soft, Non tender, Bowel sounds present Extremities/Musculoskeletal:normal inspection, 2+ B/L LE edema Neurologic/Psych:AAOX3, grossly no focal neurological deficits Results & Data ([facility]) Vital Signs (Past 12 Hours) Vital Signs Temp Pulse Pulse Pulse Pulse Resp BP 09/09/22 09:00 82 09/09/22 09:00 09/09/22 08:26 36.4 C L 75 20 140/86 09/09/22 03:07 36.5 C 69 20 111/76 09/09/22 02:22 71 09/08/22 23:38 36.6 C 72 21 133/76 09/08/22 23:27 09/08/22 22:51 67 09/08/22 22:50 Pulse Ox Pulse Ox O2 Del Method O2 Del Method O2 Flow Rate O2 Flow Rate FiO2 09/09/22 09:00 09/09/22 09:00 Room Air 09/09/22 08:26 96 Nasal Cannula 2 09/09/22 03:07 95 Nasal Cannula 1.5 09/09/22 02:22 93 Nasal Cannula 2 09/08/22 23:38 90 Nasal Cannula 2 09/08/22 23:27 Nasal Cannula 09/08/22 22:51 90 Room Air 09/08/22 22:50 21 FiO2 09/09/22 09:00 09/09/22 09:00 09/09/22 08:26 09/09/22 03:07 09/09/22 02:22 09/08/22 23:38 09/08/22 23:27 09/08/22 22:51 21 09/08/22 22:50 Laboratory Results 09/09/22 05:20 09/09/22 05:20
--- NOTE | 2022-09-09 16:16 | Hospitalist Progress Note ---
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 No recent antibiotic treatment. Patient was increasingly sleepy as per at presentation. Patient with hemoglobin of 5.9 at admission and received 2 units PRBC transfusion in the ED. Of note, patient moved back to [place] from [place] last June 2022, patient had 3 hospital confinements at [place] for kidney failure and hypoxia prior to return to [place] per his . He is being managed for the following: Likely metabolic encephalopathy: Multifactorial likely secondary to respiratory failure -possible OHS/untreated RUTH [patient has still to go for a sleep study as per ], acute on chronic anemia secondary to lower GI bleed, ARF on CKD. Admitting UA and Bl Cx negative. Plan- continue to treat underlying cause. Lethargic, oriented x3 today. OOB x 2-3 times a day. c/w BPAP overnight and while sleeping. 09/08-09/09 nocturnal pulse oximetry with 9 desaturation events, time is spent in desaturation greater than 5 minutes and time spent with saturation less than 89% is 1 hour 28-minute. 09/09 AM ABG with PCO2 of 55. Patient was not on BiPAP here. Patient will likely need BiPAP upon discharge. Resp failure w/ hypercapnia; Obesity hypoventilation syndrome: Has evidence of chronic compensated hypercapnic respiratory failure based on ABG. BiPAP when sleeping. Pulmonology evaluated and recommends outpatient BiPAP and follow-up with sleep clinic. Continue with BiPAP overnight and while sleeping. Acute on chronic anemia Acute blood loss anemia Likely lower GI bleeding Patient presented with complaints of bloody diarrhea, hemoglobin of 5.9 at admission Status post 6 unit PRBC transfusion so far. Iron level low. GI evaluated, status post EGD and colonoscopy. 08/31 EGD: No evidence of UGI bleeding, 2 duodenal polyps likely hyperplastic were biopsied with a cold forceps. --> HPE: 2 fragments of polypoid duodenal mucosa with nonspecific duodenitis. Negative for malignancy. 09/01 colonoscopy: The perianal and digital rectal exam were normal. A 10 mm polyp was found in the rectum which was removed with a cold snare and clips [MR conditional] were placed. HPE result is tubular adenoma, negative for high- grade dysplasia. Also diverticulosis in the sigmoid colon were noted. Nonbleeding internal hemorrhoids were noted. Recommendation is to repeat colonoscopy in 5 years for surveillance. Since no evidence of GI bleeding, recommended hematology evaluation. 09/01 peripheral smear: Reviewed FOBT/stool studies pending. Transfuse hemoglobin if less than 7 or for symptomatic anemia. Last transfusion needed on 09/02, hemoglobin has been stable, closer to his baseline lately. Continue with folic acid and vitamin B12. Hematology evaluated, recommends GI bleeding scan [patient cannot undergo bleeding scan due to his weight], recommends iron transfusion---on 09/06 and 09/08. Repeat ferritin level on Sunday and see if needs further iron transfusion. Continue with p.o. pantoprazole. Ferritin level on Sunday. Reassess for need for iron transfusion. Acute DVT: Per patient's , patient has not been mobile since October 2021, he used to be able to walk with cane prior to that. Patient was not on any DVT prophylaxis because of GI bleed. Patient complained of left arm pain and was scanned for DVT on 09/05/2022 evening which came back positive for DVT in mid to distal left brachial vein. Per night attending, he reached out to Dr. Enamorado who recommended to take the line out but IV team evaluated and did not take out the line as it was above the DVT and the line was working. Patient is a very hard stick due to morbid obesity. Risks associated with starting and not starting anticoagulation discussed with patient's over the phone 09/06, she favored to go with anticoagulation with close monitoring of H&H. Updated GI team and hematology team 09/06, c/w with low-dose heparin drip without bolus, will keep PTT towards low normal range, monitor H&H closely. Hb has been stable, oral anticoagulation options discussed with patient, pt favored to go with warfarin which seems reasonable given if the need might arise for rapid reversal due to h/o GI bleed. 09/08 WArfarin dose started at 5 mg, will monitor pt/inr daily, will stop heparin when therapeutic inr reached. INR today 1.1. CHERYL over CKD: Patient reports having CHERYL being hospitalized for it in [place]. Admitting CT abdomen pelvis with abnormal imaging of kidneys US renal: No renal calculi or hydronephrosis or solid renal mass. Bilateral simple and complex renal cyst. Bilateral diffuse cortical thinning with decreased corticomedullary differentiation compatible with chronic medical renal disease. Likely secondary to ischemic ATN in setting of acute blood loss anemia, baseline creatinine of around 1.4, admitting creatinine of 2.06, peaked at 3.66, currently 3.08. Nephrology on board, managing diuresis, appreciate recommendation. Lasix and potassium currently on hold. Troponin elevation: Secondary to illness, no chest pain, echo obtained with grossly normal LV systolic function without all wall segments able to be visualized. Other chronic medical conditions: Ongoing tobacco abuse, HTN, HLD, morbid obesity, gout/rheumatoid arthritis, chronic back pain, medication noncompliance ---> continue home meds as able, BP fairly under control. DVT prophylaxis: Currently on heparin drip, warfarin started 09/08, plan to stop heparin drip once therapeutic INR. Full code Patient's Rima Bowie: [phone], given a phone call 09/06 and updated about patient's current status in detail, answered all her questions to her satisfaction, she voiced understanding and was agreeable to the plan of care. Admission and Anticipated Discharge Date Admission Date: August 29, 2022 Subjective Patient seen and examined at bedside as a follow-up of encephalopathy, respiratory failure possible OHS/untreated RUTH, acute on chronic anemia secondary to lower GI bleed, ARF on CKD. Patient was lying in bed, on 2l NC O2, NAD, reports no pain or discomfort, is conversive and is oriented but appears a little more lethargic than yesterday. Patient underwent nocturnal pulse oximetry overnight and hence was not on BiPAP. Patient states that he is afraid of his balance while walking. Communicated with RN to continue with BiPAP while sleeping and in the night. Patient had a bowel movement yesterday, FOBT came back negative. Patient denies any pain anywhere in the body except for some mild pain in his left upper extremity where DVT was diagnosed but it is also improving now. Patient is eating okay. Offers no other complaints. Physical Exam Physical Exam: GENERAL: lethargic and oriented x3. NAD, on RA. Morbidly obese. HEENT: No pallor, no icterus. Pupils equal, round and reactive to light. Oral mucosa moist. NECK: No JVD, no neck masses. Thick short neck. HEART: S1 and S2 heard. tachycardia. No murmur, no gallop. RESPIRATORY SYSTEM: Normal AP diameter. No accessory muscle use. No wheezing, no crackles. Decreased breath sounds. ABDOMEN: Soft, bowel sounds present, nontender, no distention. CENTRAL NERVOUS SYSTEM: No facial droop. not able to participate actively w/ exam. Moves extremities. EXTREMITIES: trace BLE edema, no erythema seen. UC w/ light yellow urine collection +. Results & Data Results & Data ([facility]) Vital Signs (Past 12 Hours) Vital Signs Temp Pulse Pulse Pulse Resp BP Pulse Ox 09/09/22 12:05 36.6 C 60 22 102/67 91 09/09/22 09:00 82 09/09/22 09:00 09/09/22 08:26 36.4 C L 75 20 140/86 96 O2 Del Method O2 Flow Rate 09/09/22 12:05 Nasal Cannula 2.0 09/09/22 09:00 09/09/22 09:00 Room Air 09/09/22 08:26 Nasal Cannula 2
[2022-09-09] MEDS: WARFARIN SOD 5 MG TAB PO SCH (16:27)
[2022-09-10 05:57] LABS: Hematocrit (blood only) 30.1 % (40.1-51.0); Hemoglobin 9.3 g/dl (14.0-18.0); Mean Corpuscular Hemoglobin 29.2 pg (25.0-34.0); Mean Corpuscular Hgb Conc 30.9 g/dL (32.0-36.0); Mean Corpuscular Volume 94.4 fL (80.0-100.0); Platelet Count 315 K/uL (130-400); RDW Coefficient of Variation 15.7 % (11.5-14.5); RDW Standard Deviation 53.5 fL (36.4-46.3); Red Blood Count 3.19 M/uL (4.63-6.08); White Blood Count 7.42 K/ul (4.8-10.8)
[2022-09-10 06:22] LABS: INR 1.3 (0.9-1.1); Partial Thromboplastin Ratio 1.7; Prothrombin Time 13.8 Seconds (9.0-12.0)
[2022-09-10] MEDS: HEPARIN SODIUM/DEXTROSE 25,000 UNITS/500 ML BAG IV SCH ×3 (06:22→21:04)
[2022-09-10 06:40] LABS: BUN Creatinine Ratio 18.3 (10-20); Calcium 8.8 mg/dl (8.5-10.1); Creatinine Clr Calc Pharmacy 52.4 ml/min; Est GFR (African American) 25.7 ml/min; Est GFR (Non-African American) 22.2 ml/min; Magnesium 1.8 mg/dl (1.7-2.4); Phosphorus 4.4 mg/dl (2.5-4.9); Potassium 3.8 mmol/L (3.5-5.1)
[2022-09-10 06:51] LABS: Partial Thromboplastin Time 47.3 Seconds (21.0-31.0)
[2022-09-10] MEDS: FOLIC ACID 1 MG TAB PO SCH (09:24)
[2022-09-10] MEDS: DOCUSATE SODIUM 100 MG CAP PO SCH ×2 (09:24→21:23)
[2022-09-10] MEDS: carvediloL 12.5 MG TAB PO SCH ×2 (09:24→21:22)
[2022-09-10] MEDS: VERAPAMIL HCL 240 MG TABCR PO SCH (09:24)
[2022-09-10] MEDS: PANTOprazole 40 MG TAB PO SCH ×2 (09:24→21:22)
[2022-09-10] MEDS: CYANOCOBALAMIN (B-12) 100 MCG TABLET PO SCH (09:24)
[2022-09-10] MEDS: ACETAMINOPHEN 325 MG TAB PO PRN (09:38)
--- NOTE | 2022-09-10 10:05 | Nephrology Progress Note ---
Date of Service September 10, 2022 Assessment & Plan (1) CHERYL (acute kidney injury): Plan: Markedly worse Stage 2 nonoliguric acute kidney injury due to ischemic ATN in setting of acute blood loss anemia. Admission creatinine of 3.6; baseline 1.4. Second episode of severe CHERYL, last one Stage 3 / peak creat 4.6 prior to arrival in [place] 06/2022. improving creatinine after holding lasix and resuming at lower dose. pt 11L negative on admission but remains grossly volume overloaded. -lasix on hold; lowered lasix on 09/04 from 100 mg IV bid17 (had 3 doses total )> 60 mg IV bid17 until evening 09/08 b/c of worsening renal function -Renal function have platued and UOP was >2l yesterday, somewhat low today, His o2 requirements has not increased, expect improvement - Continue to hold diuretic today, reassese in am . - Replace K to keep levels> 4. -Daily BMP and avoid nephrotoxins -HTN noted > believe at least in part d/t pain +/- steroids; would observe for now continuing CCB, prn BB; defer to primary service on pain mgt (2) Anemia: Plan: Patient with anemia due to GI bleed; now on AC d/t LUE DVT. Continue to monitor and transfuse as needed for hemoglobin less than 7. Admission and Anticipated Discharge Date Admission Date: August 29, 2022 Subjective Lying comfortably on bed. Alert and Oriented Review of Systems Review of Systems: All other systems were reviewed and negative except as noted in HPI Physical Exam Physical Exam: General Appearance: no apparent distress Head: normocephalic, Atraumatic Eyes: normal inspection, EOMI Neck: supple, Trachea midline Respiratory/Chest: Decreased breath sounds, basal crackles, No accessory muscle use Cardiovascular: S1, S2, No murmur Abdomen/GI:Soft, Non tender, Bowel sounds present Extremities/Musculoskeletal:normal inspection, 2+ B/L LE edema Neurologic/Psych:AAOX3, grossly no focal neurological deficits Results & Data ([facility]) Vital Signs (Past 12 Hours) Vital Signs Temp Pulse Pulse Resp BP Pulse Ox O2 Del Method 09/10/22 07:32 36.7 C 85 21 152/96 H 91 Nasal Cannula 09/10/22 03:54 36.9 C 83 23 134/87 91 Nasal Cannula 09/10/22 00:22 36.5 C 80 22 132/89 94 BiPAP 09/09/22 22:50 78 23 95 O2 Flow Rate FiO2 09/10/22 07:32 2.0 09/10/22 03:54 2 09/10/22 00:22 09/09/22 22:50 35 Laboratory Results 09/10/22 05:19 09/10/22 05:19
--- NOTE | 2022-09-10 15:25 | Hospitalist Progress Note ---
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 No recent antibiotic treatment. Patient was increasingly sleepy as per at presentation. Patient with hemoglobin of 5.9 at admission and received 2 units PRBC transfusion in the ED. Of note, patient moved back to [place] from [place] last June 2022, patient had 3 hospital confinements at [place] for kidney failure and hypoxia prior to return to [place] per his . He is being managed for the following: Likely metabolic encephalopathy: Multifactorial likely secondary to respiratory failure -possible OHS/untreated RUTH [patient has still to go for a sleep study as per ], acute on chronic anemia secondary to lower GI bleed, ARF on CKD. Admitting UA and Bl Cx negative. Plan- continue to treat underlying cause. Alert, oriented x3 today. OOB x 2-3 times a day. c/w BPAP overnight and while sleeping. RN made aware. 09/08-09/09 nocturnal pulse oximetry with 9 desaturation events, time is spent in desaturation greater than 5 minutes and time spent with saturation less than 89% is 1 hour 28-minute. 09/09 AM ABG with PCO2 of 55. Patient was not on BiPAP here. Patient will likely need BiPAP upon discharge. Resp failure w/ hypercapnia; Obesity hypoventilation syndrome: Has evidence of chronic compensated hypercapnic respiratory failure based on ABG. BiPAP when sleeping. Pulmonology evaluated and recommends outpatient BiPAP and follow-up with sleep clinic. Continue with BiPAP overnight and while sleeping. Will need formal sleep study upon discharge. Acute on chronic anemia Acute blood loss anemia Likely lower GI bleeding Patient presented with complaints of bloody diarrhea, hemoglobin of 5.9 at admission Status post 6 unit PRBC transfusion so far. Iron level low. GI evaluated, status post EGD and colonoscopy. 08/31 EGD: No evidence of UGI bleeding, 2 duodenal polyps likely hyperplastic were biopsied with a cold forceps. --> HPE: 2 fragments of polypoid duodenal mucosa with nonspecific duodenitis. Negative for malignancy. 09/01 colonoscopy: The perianal and digital rectal exam were normal. A 10 mm polyp was found in the rectum which was removed with a cold snare and clips [MR conditional] were placed. HPE result is tubular adenoma, negative for high- grade dysplasia. Also diverticulosis in the sigmoid colon were noted. Nonbleeding internal hemorrhoids were noted. Recommendation is to repeat colonoscopy in 5 years for surveillance. Since no evidence of GI bleeding, recommended hematology evaluation. 09/01 peripheral smear: Reviewed FOBT negative. Transfuse hemoglobin if less than 7 or for symptomatic anemia. Last transfusion needed on 09/02, hemoglobin has been stable, closer to his baseline lately. Continue with folic acid and vitamin B12. Hematology evaluated, recommends iron transfusion---on 09/06 and 09/08. Repeat ferritin level on Sunday and see if needs further iron transfusion. Continue with p.o. pantoprazole. Ferritin level on Sunday. Reassess for need for iron transfusion. Acute DVT: Per patient's , patient has not been mobile since October 2021, he used to be able to walk with cane prior to that. Patient was not on any DVT prophylaxis because of GI bleed. Patient complained of left arm pain and was scanned for DVT on 09/05/2022 evening which came back positive for DVT in mid to distal left brachial vein. Per night attending, he reached out to Dr. Enamorado who recommended to take the line out but IV team evaluated and did not take out the line as it was above the DVT and the line was working. Patient is a very hard stick due to morbid obesity. Risks associated with starting and not starting anticoagulation discussed with patient's over the phone 09/06, she favored to go with anticoagulation with close monitoring of H&H. Updated GI team and hematology team 09/06, c/w with low-dose heparin drip without bolus, will keep PTT towards low normal range, monitor H&H closely. Hb has been stable, oral anticoagulation options discussed with patient, pt favored to go with warfarin which seems reasonable given if the need might arise for rapid reversal due to h/o GI bleed. 09/08 WArfarin dose started at 5 mg, will monitor pt/inr daily, will stop heparin when therapeutic inr reached. INR today 1.3. CHERYL over CKD: Patient reports having CHERYL being hospitalized for it in [place]. Admitting CT abdomen pelvis with abnormal imaging of kidneys US renal: No renal calculi or hydronephrosis or solid renal mass. Bilateral simple and complex renal cyst. Bilateral diffuse cortical thinning with decreased corticomedullary differentiation compatible with chronic medical renal disease. Likely secondary to ischemic ATN in setting of acute blood loss anemia, baseline creatinine of around 1.4, admitting creatinine of 2.06, peaked at 3.66, currently 3.0. Nephrology on board, managing diuresis, appreciate recommendation. Lasix and potassium currently on hold. Troponin elevation: Secondary to illness, no chest pain, echo obtained with grossly normal LV systolic function without all wall segments able to be visualized. Other chronic medical conditions: Ongoing tobacco abuse, HTN, HLD, morbid obesity, gout/rheumatoid arthritis, chronic back pain, medication noncompliance ---> continue home meds as able, BP fairly under control. DVT prophylaxis: Currently on heparin drip, warfarin started 09/08, plan to stop heparin drip once therapeutic INR. Full code Patient's Rima Bowie: [phone], given a phone call 09/06 and updated about patient's current status in detail, answered all her questions to her satisfaction, she voiced understanding and was agreeable to the plan of care. Admission and Anticipated Discharge Date Admission Date: August 29, 2022 Subjective Patient seen and examined at bedside as a follow-up of encephalopathy, respiratory failure possible OHS/untreated RUTH, acute on chronic anemia secondary to lower GI bleed, ARF on CKD. Patient was lying in bed, on 2l NC O2, NAD, reports generalized joint pain, is conversive and is oriented, more alert than yesterday. Patient used BiPAP for "few hours" overnight and then he declined per RN. Communicated with RN to continue with BiPAP while sleeping and in the night. Patient states that he is afraid of his balance while walking. Ongoing PT/OT needs. Patient had a bowel movement 2 days ago, FOBT came back negative. Patient is eating okay. Offers no other complaints. Physical Exam Physical Exam: GENERAL: Alert and oriented x3. NAD, on RA. Morbidly obese. HEENT: No pallor, no icterus. Pupils equal, round and reactive to light. Oral mucosa moist. NECK: No JVD, no neck masses. Thick short neck. HEART: S1 and S2 heard. tachycardia. No murmur, no gallop. RESPIRATORY SYSTEM: Normal AP diameter. No accessory muscle use. No wheezing, no crackles. Decreased breath sounds. ABDOMEN: Soft, bowel sounds present, nontender, no distention. CENTRAL NERVOUS SYSTEM: No facial droop. not able to participate actively w/ exam. Moves extremities. EXTREMITIES: trace BLE edema, no erythema seen. UC w/ light yellow urine collection +. Results & Data Results & Data ([facility]) Vital Signs (Past 12 Hours) Vital Signs Temp Pulse Pulse Resp BP Pulse Ox O2 Del Method 09/10/22 14:28 60 09/10/22 06:12 88 09/10/22 11:42 37.0 C 59 L 21 98/59 L 91 Nasal Cannula 09/10/22 09:22 Room Air 09/10/22 07:32 36.7 C 85 21 152/96 H 91 Nasal Cannula 09/10/22 03:54 36.9 C 83 23 134/87 91 Nasal Cannula O2 Flow Rate 09/10/22 14:28 09/10/22 06:12 09/10/22 11:42 2.0 09/10/22 09:22 2 09/10/22 07:32 2.0 09/10/22 03:54 2
[2022-09-10] MEDS: WARFARIN SOD 5 MG TAB PO SCH (16:47)
[2022-09-11 06:22] LABS: Hematocrit (blood only) 29.7 % (40.1-51.0); Hemoglobin 9.2 g/dl (14.0-18.0); Mean Corpuscular Hemoglobin 29.1 pg (25.0-34.0); Mean Platelet Volume 10.2 fL (9.4-12.4); Platelet Count 286 K/uL (130-400); RDW Coefficient of Variation 15.7 % (11.5-14.5); RDW Standard Deviation 54.2 fL (36.4-46.3); Red Blood Count 3.16 M/uL (4.63-6.08)
[2022-09-11 06:45] LABS: Partial Thromboplastin Ratio 2.3; Prothrombin Time 20.1 Seconds (9.0-12.0)
[2022-09-11 06:59] LABS: Ferritin 702.7 ng/ml (8-388)
[2022-09-11 07:11] LABS: BUN Creatinine Ratio 18.5 (10-20); Calcium 8.7 mg/dl (8.5-10.1); Creatinine Clr Calc Pharmacy 52.2 ml/min; Est GFR (African American) 25.9 ml/min; Est GFR (Non-African American) 22.4 ml/min; Potassium 3.8 mmol/L (3.5-5.1)
[2022-09-11] MEDS: PANTOprazole 40 MG TAB PO SCH ×2 (08:48→21:04)
[2022-09-11] MEDS: DOCUSATE SODIUM 100 MG CAP PO SCH ×2 (08:48→21:05)
[2022-09-11] MEDS: carvediloL 12.5 MG TAB PO SCH ×2 (08:48→21:04)
[2022-09-11] MEDS: FOLIC ACID 1 MG TAB PO SCH (08:48)
[2022-09-11] MEDS: oxyCODONE HCL IR 5 MG TAB (IMMEDIATE RELEASE) PO PRN ×2 (08:48→18:23)
[2022-09-11] MEDS: VERAPAMIL HCL 240 MG TABCR PO SCH (08:48)
[2022-09-11] MEDS: CYANOCOBALAMIN (B-12) 100 MCG TABLET PO SCH (08:49)
--- NOTE | 2022-09-11 08:54 | XRay Report ---
XR chest 1V portable HISTORY: increasing O2 requirement COMPARISON: Chest 08/29/2022. FINDINGS: Low lung volumes with elevation the right hemidiaphragm, unchanged. The heart remains enlar ged. Bibasilar linear densities favor subsegmental atelectasis. No evidence for pulmonary edema. No p leural effusions. No pneumothorax. IMPRESSION: 1. Low lung volumes with bibasilar linear densities which favor subsegmental atelectasis. 2. Stable cardiomegaly. ACT 112: Negative or not required by law. Electronically signed by: Abdirashid Garcia M.D. 09/11/2022 8:53 AM
--- NOTE | 2022-09-11 10:12 | Nephrology Progress Note ---
Date of Service September 11, 2022 Assessment & Plan (1) CHERYL (acute kidney injury): Plan: Plateau'd Stage 2 nonoliguric acute kidney injury due to ischemic ATN in setting of acute blood loss anemia, obligate diuresis. Admission and peak creatinine of 3.6; baseline 1.4; victor manuel 2.1 on 09/06; current at 3 or 3.1 09/08-09/11. Second episode of severe CHERYL, last one Stage 3 / peak creat 4.6 prior to arrival in [place] 06/2022. improving creatinine after holding lasix and resuming at lower dose. pt 11L negative on admission but remains grossly volume overloaded. -lasix on hold; lowered lasix on 09/04 from 100 mg IV bid17 (had 3 doses total )> 60 mg IV bid17 until evening 09/08 b/c of worsening renal function >despite CXR note that respiratory status worsened w/ stopping lasix >resume lasix 60 mg IV tid and start metolazone 2.5 mg daily until respiratory status stabilized -started FR 1.5 L - Replace K to keep levels> 4. -Daily BMP and avoid nephrotoxins -HTN controlled now > believe at least in part d/t pain +/- steroids; would observe for now continuing CCB, prn BB; defer to primary service on pain mgt (2) Anemia: Plan: Patient with anemia due to GI bleed; now on AC d/t LUE DVT. Continue to monitor and transfuse as needed for hemoglobin less than 7. Admission and Anticipated Discharge Date Admission Date: August 29, 2022 Subjective higher 02 needs correlate w/ scaling back on lasix, which has been on hold since last dose pm 09/08. disregarding dietary limits Review of Systems Review of Systems: All systems reviewed & are unremarkable except as noted in Subjective Physical Exam Constitutional: well developed, well nourished, + obese and cooperative; no acute distress Eyes: EOM intact bilaterally ENMT: Ears: no external ear abnormality Nose: no external nose abnormality Mouth: + dry oral mucous membranes Neck: no nuchal rigidity Respiratory: + labored breathing (slight); no respiratory distress Auscultation: + diminished lung sounds and + rhonchi Cardiovascular: Rate/Rhythm: regular rate, regular rhythm and + tachycardic Extremities: + edema (2+ pedal; trace dep; LUE edema) Gastrointestinal (Abdomen): Inspection/Auscultation: normal bowel sounds Percussion/Palpation: abdomen soft; abdomen nontender Musculoskeletal: Extremities: strength 5/5 throughout Skin: no rashes, warm and dry Neurologic: [place], fluent speech Results & Data ([facility]) Vital Signs (Past 12 Hours) Vital Signs Temp Pulse Pulse Pulse Resp BP Pulse Ox 09/11/22 07:17 37.3 C 80 20 145/80 H 93 09/11/22 03:41 37.2 C 75 18 126/77 94 09/11/22 02:04 09/10/22 23:10 37 C 70 24 116/66 96 09/10/22 22:24 76 16 92 09/10/22 22:14 O2 Del Method O2 Flow Rate FiO2 09/11/22 07:17 Oxymask 5 09/11/22 03:41 Oxymask 5 09/11/22 02:04 5 09/10/22 23:10 CPAP 09/10/22 22:24 3 09/10/22 22:14 Room Air Laboratory Results 09/11/22 05:29 09/11/22 05:29 Diagnostic Findings cxr today reviewed
--- NOTE | 2022-09-11 14:22 | Hospitalist Progress Note ---
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 No recent antibiotic treatment. Patient was increasingly sleepy as per at presentation. Patient with hemoglobin of 5.9 at admission and received 2 units PRBC transfusion in the ED. Of note, patient moved back to [place] from [place] last June 2022, patient had 3 hospital confinements at [place] for kidney failure and hypoxia prior to return to [place] per his . He is being managed for the following: Likely metabolic encephalopathy: Multifactorial likely secondary to respiratory failure -possible OHS/untreated RUTH [patient has still to go for a sleep study as per ], acute on chronic anemia secondary to lower GI bleed, ARF on CKD. Admitting UA and Bl Cx negative. Plan- continue to treat underlying cause. Alert, oriented x3 today. OOB x 2-3 times a day. c/w BPAP overnight and while sleeping. RN made aware. 09/08-09/09 nocturnal pulse oximetry with 9 desaturation events, time is spent in desaturation greater than 5 minutes and time spent with saturation less than 89% is 1 hour 28-minute. 09/09 AM ABG with PCO2 of 55. Patient was not on BiPAP here. Patient will likely need BiPAP upon discharge. Patient not very much compliant with BPAP. Re-educate and re-emphasize daily. Resp failure w/ hypercapnia; Obesity hypoventilation syndrome: Has evidence of chronic compensated hypercapnic respiratory failure based on ABG. BiPAP when sleeping. Pulmonology evaluated and recommends outpatient BiPAP and follow-up with sleep clinic. Continue with BiPAP overnight and while sleeping. Will need formal sleep study upon discharge. O2 need increasing, likely will need diuresis, though CXR not showing any congestion and no crackles appreciated in exam as his massive BMI will create difficulty interpreting them. So logical deduction from him not getting lasix last few days w/ increasing O2 requirement could be some fluid overload in lungs, d/w nephro, plan to resume lasix. Acute on chronic anemia Acute blood loss anemia Likely lower GI bleeding Patient presented with complaints of bloody diarrhea, hemoglobin of 5.9 at admission Status post 6 unit PRBC transfusion so far. Iron level low --> s/p iron transfusion x 2. GI evaluated, status post EGD and colonoscopy. 08/31 EGD: No evidence of UGI bleeding, 2 duodenal polyps likely hyperplastic were biopsied with a cold forceps. --> HPE: 2 fragments of polypoid duodenal mucosa with nonspecific duodenitis. Negative for malignancy. 09/01 colonoscopy: The perianal and digital rectal exam were normal. A 10 mm polyp was found in the rectum which was removed with a cold snare and clips [MR conditional] were placed. HPE result is tubular adenoma, negative for high- grade dysplasia. Also diverticulosis in the sigmoid colon were noted. Nonbleeding internal hemorrhoids were noted. Recommendation is to repeat colonoscopy in 5 years for surveillance. Since no evidence of GI bleeding, recommended hematology evaluation. 09/01 peripheral smear: Reviewed FOBT negative, Ferritin > 700. Transfuse hemoglobin if less than 7 or for symptomatic anemia. Last transfusion needed on 09/02, hemoglobin has been stable, closer to his baseline lately. Continue with folic acid and vitamin B12. Hematology evaluated, appreciate recs Continue with p.o. pantoprazole. Monitor HnH daily or as needed. Acute DVT: Per patient's , patient has not been mobile since October 2021, he used to be able to walk with cane prior to that. Patient was not on any DVT prophylaxis because of GI bleed. Patient complained of left arm pain and was scanned for DVT on 09/05/2022 evening which came back positive for DVT in mid to distal left brachial vein. Per night attending, he reached out to Dr. Enamorado who recommended to take the line out but IV team evaluated and did not take out the line as it was above the DVT and the line was working. Patient is a very hard stick due to morbid obesity. Risks associated with starting and not starting anticoagulation discussed with patient's over the phone 09/06, she favored to go with anticoagulation with close monitoring of H&H ---> Transitioned to warfarin, INR 2.0 today, on 4 mg daily warfarin, will continue to adjust warfarin dose daily. CHERYL over CKD: Patient reports having CHERYL being hospitalized for it in [place]. Admitting CT abdomen pelvis with abnormal imaging of kidneys US renal: No renal calculi or hydronephrosis or solid renal mass. Bilateral simple and complex renal cyst. Bilateral diffuse cortical thinning with decreased corticomedullary differentiation compatible with chronic medical renal disease. Likely secondary to ischemic ATN in setting of acute blood loss anemia, baseline creatinine of around 1.4, admitting creatinine of 2.06, peaked at 3.66, currently 3.0. Nephrology on board, managing diuresis, appreciate recommendation. Lasix and potassium currently on hold. Troponin elevation: Secondary to illness, no chest pain, echo obtained with grossly normal LV systolic function without all wall segments able to be visualized. Other chronic medical conditions: Ongoing tobacco abuse, HTN, HLD, morbid obesity, gout/rheumatoid arthritis, chronic back pain, medication noncompliance ---> continue home meds as able, BP fairly under control. DVT prophylaxis: warfarin Full code Patient's Rima Bowie: [phone], given a phone call 09/06 and updated about patient's current status in detail, answered all her questions to her satisfaction, she voiced understanding and was agreeable to the plan of care. Disposition: PT/OT, CM to assist, currently being managed medically for kidney disease and respiratory failure. Admission and Anticipated Discharge Date Admission Date: August 29, 2022 Subjective Patient seen and examined at bedside as a follow-up of encephalopathy, respiratory failure possible OHS/untreated RUTH, acute on chronic anemia secondary to lower GI bleed, ARF on CKD. Patient was lying in bed, on 5L O2 via Oxymask, NAD, reports generalized joint pain, is conversive and is oriented. Patient used BiPAP for "few hours" overnight and then he declined around 2 am per RN. Communicated with RN to continue with BiPAP while sleeping and in the night. Patient states that he is afraid of his balance while walking. Ongoing PT/OT needs. Patient had a bowel movement 3 days ago, FOBT came back negative.Patient is eating a lot from outside, pt advised to follow hospital diet. Offers no other complaints. Pt had one time fever of 38.2C, per RN no open wounds/pressure ulcer seen during bathing/washing, procal is negative. will closely monitor. Pt is difficult to exam without significant manpower to check his back. Physical Exam Physical Exam: GENERAL: Alert and oriented x3. NAD, on RA. Morbidly obese. HEENT: No pallor, no icterus. Pupils equal, round and reactive to light. Oral mucosa moist. NECK: No JVD, no neck masses. Thick short neck. HEART: S1 and S2 heard. tachycardia. No murmur, no gallop. RESPIRATORY SYSTEM: Normal AP diameter. No accessory muscle use. No wheezing, no crackles. Decreased breath sounds. ABDOMEN: Soft, bowel sounds present, nontender, no distention. CENTRAL NERVOUS SYSTEM: No facial droop. not able to participate actively w/ exam. Moves extremities. EXTREMITIES: trace BLE edema, no erythema seen. UC w/ yellow urine collection +. Results & Data Results & Data ([facility]) Vital Signs (Past 12 Hours) Vital Signs Temp Pulse Pulse Resp BP Pulse Ox O2 Del Method 09/11/22 11:00 38.2 C H 60 25 H 110/78 95 Oxymask 09/11/22 08:00 Oxymask 09/11/22 07:00 67 09/11/22 07:17 37.3 C 80 20 145/80 H 93 Oxymask 09/11/22 03:41 37.2 C 75 18 126/77 94 Oxymask O2 Flow Rate 09/11/22 11:00 4 09/11/22 08:00 09/11/22 07:00 09/11/22 07:17 5 09/11/22 03:41 5
[2022-09-11] MEDS: WARFARIN SOD 4 MG TAB PO SCH (18:23)
[2022-09-11] MEDS ORDERED: metOLazone 2.5 MG TABLET PO ONE (20:30)
[2022-09-12 06:56] LABS: Hematocrit (blood only) 31.2 % (40.1-51.0); Hemoglobin 9.4 g/dl (14.0-18.0); Mean Corpuscular Hemoglobin 29.3 pg (25.0-34.0); Mean Corpuscular Hgb Conc 30.1 g/dL (32.0-36.0); Mean Corpuscular Volume 97.2 fL (80.0-100.0); Mean Platelet Volume 10.4 fL (9.4-12.4); Platelet Count 280 K/uL (130-400); RDW Coefficient of Variation 15.4 % (11.5-14.5); RDW Standard Deviation 55.1 fL (36.4-46.3); Red Blood Count 3.21 M/uL (4.63-6.08); White Blood Count 8.81 K/ul (4.8-10.8)
[2022-09-12 07:13] LABS: BUN Creatinine Ratio 13.9 (10-20); Calcium 8.9 mg/dl (8.5-10.1); Creatinine Clr Calc Pharmacy 34.9 ml/min; Est GFR (African American) 15.9 ml/min; Est GFR (Non-African American) 13.7 ml/min; Potassium 4.5 mmol/L (3.5-5.1)
[2022-09-12 07:17] LABS: Phosphorus 6.3 mg/dl (2.5-4.9)
[2022-09-12 07:26] LABS: INR 2.3 (0.9-1.1); Prothrombin Time 23.1 Seconds (9.0-12.0)
[2022-09-12] MEDS ORDERED: metOLazone 2.5 MG TABLET PO SCH (09:00)
[2022-09-12 10:01] LABS: Magnesium 1.9 mg/dl (1.7-2.4)
[2022-09-12] MEDS: DOCUSATE SODIUM 100 MG CAP PO SCH ×2 (10:15→20:12)
[2022-09-12] MEDS: PANTOprazole 40 MG TAB PO SCH ×2 (10:15→20:13)
[2022-09-12] MEDS: carvediloL 12.5 MG TAB PO SCH ×2 (10:15→20:13)
[2022-09-12] MEDS: CYANOCOBALAMIN (B-12) 100 MCG TABLET PO SCH (10:15)
[2022-09-12] MEDS: FOLIC ACID 1 MG TAB PO SCH (10:15)
[2022-09-12] MEDS: VERAPAMIL HCL 240 MG TABCR PO SCH (10:16)
[2022-09-12] MEDS: POTASSIUM CHLORIDE CRTAB 20 MEQ TABCR PO SCH (10:16)
--- NOTE | 2022-09-12 13:57 | Hospitalist Progress Note ---
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 No recent antibiotic treatment. Patient was increasingly sleepy as per at presentation. Patient with hemoglobin of 5.9 at admission and received 2 units PRBC transfusion in the ED. Of note, patient moved back to [place] from [place] last June 2022, patient had 3 hospital confinements at [place] for kidney failure and hypoxia prior to return to [place] per his . He is being managed for the following: Likely metabolic encephalopathy: Multifactorial likely secondary to respiratory failure -possible OHS/untreated RUTH [patient has still to go for a sleep study as per ], acute on chronic anemia secondary to lower GI bleed, ARF on CKD. Admitting UA and Bl Cx negative. Plan- continue to treat underlying cause. Alert, oriented x3 today. OOB x 2-3 times a day. c/w BPAP overnight and while sleeping. RN made aware. 09/08-09/09 nocturnal pulse oximetry with 9 desaturation events, time is spent in desaturation greater than 5 minutes and time spent with saturation less than 89% is 1 hour 28-minute. 09/09 AM ABG with PCO2 of 55. Patient was not on BiPAP here. Patient will likely need BiPAP upon discharge. Patient not very much compliant with BPAP. Re-educate and re-emphasize daily. Resp failure w/ hypercapnia; Obesity hypoventilation syndrome: Has evidence of chronic compensated hypercapnic respiratory failure based on ABG. BiPAP when sleeping. Pulmonology evaluated and recommends outpatient BiPAP and follow-up with sleep clinic. Continue with BiPAP overnight and while sleeping. Will need formal sleep study upon discharge. O2 need increasing, was started on diuresis, renal function worsened. Will need close monitoring. Will likely need pulm eval if O2 requirement continues to increase. Acute on chronic anemia Acute blood loss anemia Likely lower GI bleeding Patient presented with complaints of bloody diarrhea, hemoglobin of 5.9 at admission Status post 6 unit PRBC transfusion so far. Iron level low --> s/p iron transfusion x 2. GI evaluated, status post EGD and colonoscopy. 08/31 EGD: No evidence of UGI bleeding, 2 duodenal polyps likely hyperplastic were biopsied with a cold forceps. --> HPE: 2 fragments of polypoid duodenal mucosa with nonspecific duodenitis. Negative for malignancy. 09/01 colonoscopy: The perianal and digital rectal exam were normal. A 10 mm polyp was found in the rectum which was removed with a cold snare and clips [MR conditional] were placed. HPE result is tubular adenoma, negative for high- grade dysplasia. Also diverticulosis in the sigmoid colon were noted. Nonbleeding internal hemorrhoids were noted. Recommendation is to repeat colonoscopy in 5 years for surveillance. Since no evidence of GI bleeding, recommended hematology evaluation. 09/01 peripheral smear: Reviewed FOBT negative, Ferritin > 700. Transfuse hemoglobin if less than 7 or for symptomatic anemia. Last transfusion needed on 09/02, hemoglobin has been stable, closer to his baseline lately. Continue with folic acid and vitamin B12. Hematology evaluated, appreciate recs Continue with p.o. pantoprazole. Monitor HnH daily or as needed. Acute DVT: Per patient's , patient has not been mobile since October 2021, he used to be able to walk with cane prior to that. Patient was not on any DVT prophylaxis because of GI bleed. Patient complained of left arm pain and was scanned for DVT on 09/05/2022 evening which came back positive for DVT in mid to distal left brachial vein. Per night attending, he reached out to Dr. Enamorado who recommended to take the line out but IV team evaluated and did not take out the line as it was above the DVT and the line was working. Patient is a very hard stick due to morbid obesity. Risks associated with starting and not starting anticoagulation discussed with patient's over the phone 09/06, she favored to go with anticoagulation with close monitoring of H&H ---> Transitioned to warfarin, INR 2.0 today, on 4 mg daily warfarin, will continue to adjust warfarin dose daily. CHERYL over CKD: Patient reports having CHERYL being hospitalized for it in [place]. Admitting CT abdomen pelvis with abnormal imaging of kidneys US renal: No renal calculi or hydronephrosis or solid renal mass. Bilateral simple and complex renal cyst. Bilateral diffuse cortical thinning with decreased corticomedullary differentiation compatible with chronic medical renal disease. Likely secondary to ischemic ATN in setting of acute blood loss anemia, baseline creatinine of around 1.4, admitting creatinine of 2.06, peaked at 4.46 which is today's number. Nephrology on board, managing diuresis, appreciate recommendation. diuresis on hold currently. Troponin elevation: Secondary to illness, no chest pain, echo obtained with grossly normal LV systolic function without all wall segments able to be visualized. Other chronic medical conditions: Ongoing tobacco abuse, HTN, HLD, morbid obesity, gout/rheumatoid arthritis, chronic back pain, medication noncompliance ---> continue home meds as able, BP fairly under control. DVT prophylaxis: warfarin Full code Patient's Rima Bowie: [phone], given a phone call 09/06 and updated about patient's current status in detail, answered all her questions to her satisfaction, she voiced understanding and was agreeable to the plan of care. 09/12/22: bedside discussion with pt's rima regarding how she feels that he is doing, and general update on his status. She states that he has not seen bright end out of his current state. They would be willing to d/w palliative care for goals of care discussion. Disposition: PT/OT, CM to assist, currently being managed medically for kidney disease and respiratory failure. Admission and Anticipated Discharge Date Admission Date: August 29, 2022 Subjective Patient seen and examined at bedside as a follow-up of encephalopathy, respira tory failure possible OHS/untreated RUTH, acute on chronic anemia secondary to lower GI bleed, ARF on CKD. Patient was lying in bed, on 6L O2 via Oxymask, NAD, reports generalized joint pain, is conversive and is oriented. Patient used BiPAP for most part of overnight per RN. Communicated with RN to continue with BiPAP while sleeping and in the night. Patient states that he is afraid of his balance while walking. Ongoing PT/OT needs. Patient had a bowel movement yesterday.Patient is eating a lot from outside, pt advised to follow hospital diet --> now following hospital diet. Offers no other complaints. Pt had one time fever of 38.2C on 09/11, per RN no open wounds/pressure ulcer seen during bathing/washing, procal was negative. will closely monitor. No fever since then. Physical Exam Physical Exam: GENERAL: Alert and oriented x3. NAD, on RA. Morbidly obese. HEENT: No pallor, no icterus. Pupils equal, round and reactive to light. Oral mucosa moist. NECK: No JVD, no neck masses. Thick short neck. HEART: S1 and S2 heard. tachycardia. No murmur, no gallop. RESPIRATORY SYSTEM: Normal AP diameter. No accessory muscle use. No wheezing, no crackles. Decreased breath sounds. ABDOMEN: Soft, bowel sounds present, nontender, no distention. CENTRAL NERVOUS SYSTEM: No facial droop. not able to participate actively w/ exam. Moves extremities. EXTREMITIES: trace BLE edema, no erythema seen. UC w/ yellow urine collection +. Results & Data Results & Data ([facility]) Vital Signs (Past 12 Hours) Vital Signs Temp Pulse Pulse Pulse Resp BP Pulse Ox 09/12/22 12:26 37.0 C 74 21 113/87 94 09/12/22 08:00 09/12/22 07:30 37.3 C 80 18 122/68 97 09/12/22 07:00 69 09/12/22 03:11 36.8 C 65 22 116/61 94 09/12/22 02:00 20 90 O2 Del Method O2 Flow Rate 09/12/22 12:26 Oxymask 7 09/12/22 08:00 CPAP 7 09/12/22 07:30 Oxymask 6 09/12/22 07:00 09/12/22 03:11 CPAP 09/12/22 02:00 8
--- NOTE | 2022-09-12 15:39 | Palliative Care Consultation ---
Date of Consultation September 12, 2022 Assessment & Plan (1) Pain: with prolonged immobility Continue prn tylenol (2) Palliative care encounter: I spoke with Mr. Bowie and his at bedside. They had a discussion with Dr. Cedillo earlier today and I asked them what their understanding was of his illness. They understand that his renal function is impaired but feel that has been a chronic problem for him. They feel that if he is able to get physical therapy, he would get stronger and be able to do more. At this time, he requires assistance for feeding because he has difficulty lifting his arms. I asked him how he felt about the quality of his life. He was ambivalent about this. We talked about how he would feel if this were as good as things got for him and he said he wasn't really sure about that. He tells me that he has not ever really thought about what he would want for his care if he were seriously ill. After further thought, he indicated that he did not feel that there was anything that he would not want to go through to continue living, even at his current functional status. He indicated that his , Rima, would be his surrogate decision maker. She tells me that she is comfortable with making decisions and feels that God will help her with that. Millie has been a strong support for her. She also has supportive family during this difficult time. They are agreeable to further discussion in a few days. ([id number]) History of Present Illness Reason for Consultation: goals of care Requesting Physician: Dr. Cedillo Attending Physician: Josee Cedillo MD History of Present Illness 56 yo gentleman with morbid obesity who has been bedbound for many months. He presented with encephalopathy related to obesity hypoventilation syndrome and RUTH. He has CKD with acute renal failure and a jump in his creatinine today from 2.98 to 4.46. He has had diuresis with furosemide and zaroloxlyn. He did have an echocardiogram which was a technically limited study due to body habitus. He is followed by Dr. Richards for his renal disease. During his hospital stay he has also had a DVT and gi bleed. His mental status is variable. Today, he is somnolent but easily arousable and answers questions appropriately. His is at bedside. He denies feeling short of breath. He does complain of pain all over. Allergies Allergy/AdvReac Type Severity Reaction Status Date / Time Iodinated Contrast Media Allergy Hives Verified 08/31/22 10:32 iodine Allergy Hives Verified 08/31/22 10:32 Home Medications Medication Instructions Recorded Confirmed Type carvedilol 6.25 mg tablet 12.5 mg PO AMHS 08/29/22 08/29/22 History verapamil 240 mg 24 hr 240 mg PO QAM 08/29/22 08/29/22 History capsule,extended release Patient History Medical History CHERYL (acute kidney injury) Anemia Morbid obesity Obesity hypoventilation syndrome Social History Smoking Status: Never smoker Hx Alcohol Use: No Hx Substance Use: No Preferred Language: [place] Communication Ability: Unable 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 Beliefs That Will Affect Care: None Current Living Situation: Spouse Feels Safe at Home: Yes Assistive Devices: Scooter/Electric Scooter and Walker Review of Systems Review of Systems: ESAS Pain 1/3 Dyspnea 0/3 Nausea 0/3 Fatigue 2/3 Drowsiness 1/3 PPS 30% Physical Exam Constitutional: no acute distress Respiratory: normal respiratory effort; no labored breathing Cardiovascular: Rate/Rhythm: regular rate and regular rhythm Gastrointestinal (Abdomen): Inspection/Auscultation: + significant pannus Neurologic: Speech / Cognition: normal cognition Results & Data ([facility]) Vital Signs (Past 12 Hours) Vital Signs Temp Pulse Pulse Pulse Resp BP Pulse Ox 09/12/22 12:26 98.6 F 74 21 113/87 94 09/12/22 08:00 09/12/22 07:30 99.1 F 80 18 122/68 97 09/12/22 07:00 69 O2 Del Method O2 Flow Rate 09/12/22 12:26 Oxymask 7 09/12/22 08:00 CPAP 7 09/12/22 07:30 Oxymask 6 09/12/22 07:00 PG Care Time/CCT Total # of Minutes Spent Total Time Spent: 68 Total Time Spent with Patient: Total time spent is greater than 50% in coordination of care (as documented) at patient's floor/unit and/or counseling patient: goals of care, surrogate decision maker, patient and family education and support Coding Level of Care Code 61511 Initial Inpt Care Lvl 2 Diagnoses Pain R52 Palliative care encounter Z51.5
[2022-09-12] MEDS: WARFARIN SOD 4 MG TAB PO SCH (17:04)
--- NOTE | 2022-09-12 17:21 | Nephrology Progress Note ---
Date of Service September 12, 2022 Assessment & Plan (1) CHERYL (acute kidney injury): Plan: worsening now stage 3 borderline oliguric acute kidney injury due to ischemic ATN in setting of acute blood loss anemia, obligate diuresis. Admission creatinine of 3.6; baseline 1.4; victor manuel 2.1 on 09/06; current at 3 or 3.1 09/08- 09/11 w/ abrupt worsening to 4.5 today. Second episode of severe CHERYL, last one Stage 3 / peak creat 4.6 prior to arrival in [place] 06/2022. improving creatinine after holding lasix and resuming at lower dose. pt 11L negative on admission but remains grossly volume overloaded. -lasix on hold; lowered lasix on 09/04 from 100 mg IV bid17 (had 3 doses total )> 60 mg IV bid17 until evening 09/08 b/c of worsening renal function >despite CXR note that respiratory status worsened w/ stopping lasix; for now we have no alternative to stopping diuretics however >> may need to reinvolve pulmonary given worsening respiratory parameters >diuretics back on hold as of this AM -for now no fluid limit - Replace K to keep levels> 4. -Daily BMP and avoid nephrotoxins -HTN controlled now > believe at least in part d/t pain +/- steroids; would observe for now continuing CCB, prn BB; defer to primary service on pain mgt -sent UACM/cx but suspect ATN from obligate diuresis -urged him to move/mobilize fluid/mm as much as possible may ultimately need to consider dialysis though this will be extremely challenging for this 450 lb patient; will monitor for now (2) Anemia: Plan: Patient with anemia due to GI bleed; now on AC d/t LUE DVT. Continue to monitor and transfuse as needed for hemoglobin less than 7. Admission and Anticipated Discharge Date Admission Date: August 29, 2022 Subjective 02 needs continue to climb; renal function worse; seen on evening rounds w/ at bedside; pt denies worse sob, uncontrolled pain. admits has not moved much today Review of Systems Review of Systems: All systems reviewed & are unremarkable except as noted in Subjective Physical Exam Constitutional: well developed, well nourished, + obese and cooperative; no acute distress Eyes: EOM intact bilaterally ENMT: Ears: no external ear abnormality Nose: no external nose abnormality Mouth: + dry oral mucous membranes Neck: no nuchal rigidity Respiratory: + labored breathing (slight); no respiratory distress Auscultation: + diminished lung sounds and + rhonchi Cardiovascular: Rate/Rhythm: regular rate, regular rhythm and + tachycardic Extremities: + edema (1+ pedal; trace dep; LUE edema) Gastrointestinal (Abdomen): Inspection/Auscultation: normal bowel sounds Percussion/Palpation: abdomen soft; abdomen nontender Musculoskeletal: Extremities: strength 5/5 throughout Skin: no rashes, warm and dry Results & Data ([facility]) Vital Signs (Past 12 Hours) Vital Signs Temp Pulse Pulse Pulse Resp BP Pulse Ox 09/12/22 12:26 37.0 C 74 21 113/87 94 09/12/22 08:00 09/12/22 07:30 37.3 C 80 18 122/68 97 09/12/22 07:00 69 O2 Del Method O2 Flow Rate 09/12/22 12:26 Oxymask 7 09/12/22 08:00 CPAP 7 09/12/22 07:30 Oxymask 6 09/12/22 07:00 Laboratory Results 09/12/22 05:41 09/12/22 05:41
[2022-09-12 21:26] LABS: Appearance Urine Turbid (Clear); Bacteria Urine Automated Negative (Negative); Blood Urine 3+ (Negative); Color Urine Dark Yellow; Epithelial Cell Urine Auto >30 /lpf (0-5); Glucose Urine UA Negative (Negative); Ketones Urine Trace (Negative); Leukocyte Esterase Urine 2+ (Negative); Nitrite Urine Negative (Negative); Protein Urine 2+ (Negative); Specific Gravity Urine 1.018 (1.000-1.030); Urobilinogen Urine Negative (Negative); WBC Urine Automated >30 /hpf (0-5)
[2022-09-12 21:46] LABS: Bilirubin Urine 1+ (Negative)
[2022-09-12 21:57] LABS: Amorphous Sediment Urine Present (None Prsent); RBC Urine Automated >30 /hpf (0-4)
[2022-09-12] MEDS: ACETAMINOPHEN 325 MG TAB PO PRN (23:37)
[2022-09-13] MEDS ORDERED: SODIUM CHLORIDE 0.9% 500 ML IV SCH ×3 (03:30→20:15)
[2022-09-13 05:13] LABS: Hematocrit (blood only) 29.6 % (40.1-51.0); Hemoglobin 9.1 g/dl (14.0-18.0); Mean Corpuscular Hgb Conc 30.7 g/dL (32.0-36.0); Mean Corpuscular Volume 94.3 fL (80.0-100.0); Mean Platelet Volume 9.9 fL (9.4-12.4); Platelet Count 278 K/uL (130-400); RDW Coefficient of Variation 15.3 % (11.5-14.5); RDW Standard Deviation 53.2 fL (36.4-46.3); Red Blood Count 3.14 M/uL (4.63-6.08); White Blood Count 10.43 K/ul (4.8-10.8)
[2022-09-13 05:28] LABS: INR 2.4 (0.9-1.1); Prothrombin Time 24.5 Seconds (9.0-12.0)
[2022-09-13 06:07] LABS: BUN Creatinine Ratio 12.7 (10-20); Calcium 8.4 mg/dl (8.5-10.1); Creatinine Clr Calc Pharmacy 28.6 ml/min; Est GFR (African American) 12.6 ml/min; Est GFR (Non-African American) 10.9 ml/min; Magnesium 1.8 mg/dl (1.7-2.4); Phosphorus 6.5 mg/dl (2.5-4.9); Potassium 4.9 mmol/L (3.5-5.1)
[2022-09-13] MEDS: PANTOprazole 40 MG TAB PO SCH ×2 (09:19→20:22)
[2022-09-13] MEDS: DOCUSATE SODIUM 100 MG CAP PO SCH ×2 (09:19→20:21)
[2022-09-13] MEDS: FOLIC ACID 1 MG TAB PO SCH (09:19)
[2022-09-13] MEDS: carvediloL 12.5 MG TAB PO SCH (09:19)
[2022-09-13] MEDS: CYANOCOBALAMIN (B-12) 100 MCG TABLET PO SCH (09:20)
[2022-09-13] MEDS: POTASSIUM CHLORIDE CRTAB 20 MEQ TABCR PO SCH (09:24)
--- NOTE | 2022-09-13 11:28 | Hospitalist Progress Note ---
Date of Service September 13, 2022 Assessment & Plan (1) CHERYL (acute kidney injury): (2) Anemia: (3) Acute GI bleeding: Plan 56-year-old gentleman with PMH of HTN, HLD, CKD [baseline creatinine 1.4], chronic anemia [baseline hemoglobin 9], morbid obesity, possible RUTH as per records, gout, rheumatoid arthritis, chronic back pain, medication noncompliance as per records, ongoing tobacco abuse presented to our ED 08/29/2022 with complaint of feeling sick for 3 days ago HY[employer] associated with nausea, vomiting, bloody diarrhea and increasing weakness. No recent antibiotic treatment. Patient was increasingly sleepy as per at presentation. Patient with hemoglobin of 5.9 at admission and received 2 units PRBC transfusion in the ED. Of note, patient moved back to [place] from [place] last June 2022, patient had 3 hospital confinements at [place] for kidney failure and hypoxia prior to return to [place] per his . He is being managed for the following: Metabolic encephalopathy: Multifactorial likely secondary to respiratory failure Possible OHS/untreated RUTH [patient has still to go for a sleep study as per ] Acute on chronic anemia secondary to lower GI bleed ARF on CKD. 09/08-09/09 nocturnal pulse oximetry with 9 desaturation events, time is spent in desaturation greater than 5 minutes and time spent with saturation less than 89% is 1 hour 28-minute. 09/09 AM ABG with PCO2 of 55. Patient was not on BiPAP here. Patient will likely need BiPAP upon discharge. Continue to use BIPAP HS/prn Counseled on need for adherence Resp failure w/ hypercapnia; Obesity hypoventilation syndrome: Has evidence of chronic compensated hypercapnic respiratory failure based on ABG. Continue BiPAP when sleeping. Pulmonology evaluated and recommends outpatient BiPAP and follow-up with sleep clinic. Need formal sleep study outpatient Acute on chronic anemia Acute blood loss anemia Likely lower GI bleeding Patient presented with complaints of bloody diarrhea Hemoglobin of 5.9 at admission Status post 6 unit PRBC transfusion so far. Iron level low --> s/p iron transfusion x 2. GI evaluated, status post EGD and colonoscopy. 08/31 EGD: No evidence of UGI bleeding, 2 duodenal polyps likely hyperplastic were biopsied with a cold forceps. --> HPE: 2 fragments of polypoid duodenal mucosa with nonspecific duodenitis. Negative for malignancy. 09/01 colonoscopy: The perianal and digital rectal exam were normal. A 10 mm polyp was found in the rectum which was removed with a cold snare and clips [MR conditional] were placed. HPE result is tubular adenoma, negative for high- grade dysplasia. Also diverticulosis in the sigmoid colon were noted. Nonbleeding internal hemorrhoids were noted. Recommendation is to repeat colonoscopy in 5 years for surveillance. Since no evidence of GI bleeding, recommended hematology evaluation. 09/01 peripheral smear: Reviewed FOBT negative, Ferritin > 700. Transfuse hemoglobin if less than 7 or for symptomatic anemia. Last transfusion needed on 09/02/22 Hemoglobin has been stable, Continue with folic acid and vitamin B12. Hematology recommendations noted Repeat Ferritin level on 09/15 Continue with p.o. pantoprazole. Continue to monitor Hb Acute DVT: Per patient's , patient has not been mobile since October 2021 He used to be able to walk with cane prior to that. Patient was not on any pharmacological DVT prophylaxis initially because of GI bleed. Patient complained of left arm pain and was scanned for DVT on 09/05/2022 evening which came back positive for DVT in mid to distal left brachial vein. Patient is currently complaining of right UE pain/swelling Asked RN to remove IV on Right wrist. Get dopplers to rule out DVT Continue warfarin INR is therapeutic CHERYL over CKD: Patient reported having CHERYL being hospitalized for it in [place]. Admitting CT abdomen pelvis with abnormal imaging of kidneys (bilateral kidneys with intermidiate density lesions likley hemorrhagic/proteinaceous cysts US renal: No renal calculi or hydronephrosis or solid renal mass. Bilateral simple and complex renal cyst. Bilateral diffuse cortical thinning with decreased corticomedullary differentiation compatible with chronic medical renal disease. Baseline creatinine of around 1.4 Admitting creatinine of 2.06 Renal function continue to worsen Diuretics on hold Had hypotensive episode overnight as well as this morning Coreg and verapamil on hold Supervisor Fertilizer on board. Will discuss plans with Supervisor Fertilizer Troponin elevation: Secondary to illness No chest pain Echo obtained with grossly normal LV systolic function without all wall segments able to be visualized. Other chronic medical conditions: Ongoing tobacco abuse, HTN, HLD, morbid obesity, gout/rheumatoid arthritis, chronic back pain, medication noncompliance DVT prophylaxis: warfarin Full code Patient's Rima Bowie: [phone]. Was at bedside and updated Disposition: inpatient for now Palliative eval noted Admission and Anticipated Discharge Date Admission Date: August 29, 2022 Subjective Patient seen and examined Reports RUE pain that started overnight, mostly in forearm/wrist, worse with movement, associated with swelling Still has LUE pain Reports generalized weakness Denied any cough, chest pain, shortness of breath at rest Denied nausea, vomiting, abd pain Denied fevers or chills. Physical Exam Constitutional: + well hydrated and + morbidly obese; no acute distress Eyes: PERRL, conjunctivae normal, anicteric sclerae ENMT: external ear and nose normal, oropharynx normal Respiratory: normal respiratory effort; no respiratory distress Auscultation: + diminished lung sounds Cardiovascular: Rate/Rhythm: regular rate and regular rhythm S1 S2 Gastrointestinal (Abdomen): normal bowel sounds, soft, nontender, no hepatosplenomegaly Musculoskeletal: Right forearm and wrist tenderness/swelling Left forearm swelling Neurologic: PERRL, EOMI, accommodation nl, no face palsy, no dysarthria Psychiatric: A+Ox3, euthymic affect Results & Data Results & Data ([facility]) Vital Signs (Past 12 Hours) Vital Signs Temp Pulse Pulse Resp BP Pulse Ox O2 Del Method 09/13/22 06:31 65 09/13/22 08:08 36.9 C 63 21 106/62 96 BiPAP 09/13/22 06:04 65 120/74 09/13/22 04:13 36.9 C 65 20 114/77 93 BiPAP 09/13/22 03:14 97/76 L 09/13/22 03:09 37.1 C 65 22 78/49 L 94 BiPAP 09/13/22 02:07 74 34 H 93 09/13/22 02:00 92 BiPAP 09/13/22 02:00 37.7 C H 09/13/22 00:55 37.8 C H O2 Flow Rate 09/13/22 06:31 09/13/22 08:08 09/13/22 06:04 09/13/22 04:13 11 09/13/22 03:14 09/13/22 03:09 11 09/13/22 02:07 11 09/13/22 02:00 11 09/13/22 02:00 09/13/22 00:55 Laboratory Results Abnormal lab results 09/12/22 09/13/22 09/13/22 Range/Units 21:05 04:45 04:45 RBC 3.14 L (4.63-6.08) M/uL Hgb 9.1 L (14.0-18.0) g/dl Hct 29.6 L (40.1-51.0) % MCHC 30.7 L (32.0-36.0) g/dL RDW Std Deviation 53.2 H (36.4-46.3) fL RDW Coeff of Cheryl 15.3 H (11.5-14.5) % PT 24.5 H (9.0-12.0) Seconds INR 2.4 H (0.9-1.1) Sodium (136-145) mmol/L Chloride (98-107) mmol/L BUN (6-23) mg/dl Creatinine (0.6-1.4) mg/dl Glucose (70-99(Fasting)) mg/dl POC Glucose (70-99) mg/dl Calcium (8.5-10.1) mg/dl Phosphorus (2.5-4.9) mg/dl Urine Appearance Turbid A (Clear) Urine Protein 2+ H (Negative) Urine Ketones Trace H (Negative) Urine Blood 3+ H (Negative) Urine Bilirubin 1+ H (Negative) Ur Leukocyte Esterase 2+ H (Negative) Urine WBC (Auto) >30 H (0-5) /hpf Urine RBC (Auto) >30 H (0-4) /hpf U Hyaline Cast (Auto) 5-10 H (0-5) /lpf U Epithel Cells (Auto) >30 H (0-5) /lpf Amorphous Sediment Present A (None Prsent) 09/13/22 09/13/22 Range/Units 04:45 11:35 RBC (4.63-6.08) M/uL Hgb (14.0-18.0) g/dl Hct (40.1-51.0) % MCHC (32.0-36.0) g/dL RDW Std Deviation (36.4-46.3) fL RDW Coeff of Cheryl (11.5-14.5) % PT (9.0-12.0) Seconds INR (0.9-1.1) Sodium 133 L (136-145) mmol/L Chloride 92 L (98-107) mmol/L BUN 69 H (6-23) mg/dl Creatinine 5.42 H* D (0.6-1.4) mg/dl Glucose 120 H (70-99(Fasting)) mg/dl POC Glucose 113 H (70-99) mg/dl Calcium 8.4 L (8.5-10.1) mg/dl Phosphorus 6.5 H (2.5-4.9) mg/dl Urine Appearance (Clear) Urine Protein (Negative) Urine Ketones (Negative) Urine Blood (Negative) Urine Bilirubin (Negative) Ur Leukocyte Esterase (Negative) Urine WBC (Auto) (0-5) /hpf Urine RBC (Auto) (0-4) /hpf U Hyaline Cast (Auto) (0-5) /lpf U Epithel Cells (Auto) (0-5) /lpf Amorphous Sediment (None Prsent)
[2022-09-13] MEDS ORDERED: SODIUM CHLORIDE 0.9% 1000ML 500 ML IV ONE ×2 (12:12→13:27)
[2022-09-13] MEDS: ACETAMINOPHEN 325 MG TAB PO PRN (12:21)
[2022-09-13] MEDS: WARFARIN SOD 4 MG TAB PO SCH (16:18)
--- NOTE | 2022-09-13 16:32 | Ultrasound Report ---
RIGHT UPPER EXTREMITY VENOUS DOPPLER ULTRASOUND CLINICAL HISTORY: Right upper extremity pain/swelling. Assess for DVT COMPARISON STUDY: No previous studies for comparison. TECHNIQUE: Sonography of the venous system of the right upper extremity was performed. FINDINGS: There is no deep venous thrombus within the right upper extremity. Note is made of superfic ial thrombus within the right cephalic vein which extends from the level of the antecubital fossa to the distal forearm. Portions of this vessel are expanded by clot. IMPRESSION: 1. Superficial thrombus within the right cephalic vein which extends from the level of the antecubita l fossa to distal forearm. 2. No deep venous thrombus within the right upper extremity. ACT 112: Negative or not required by law. Electronically signed by: Shan Pedroza M.D. 09/13/2022 4:30 PM
--- NOTE | 2022-09-13 17:14 | Nephrology Progress Note ---
Date of Service September 13, 2022 Assessment & Plan (1) CHERYL (acute kidney injury): Plan: further worsening now stage 3 borderline oliguric acute kidney injury due to i schemic ATN in setting of acute blood loss anemia, obligate diuresis. Admission creatinine of 3.6; baseline 1.4; victor manuel 2.1 on 09/06; current at 3 or 3.1 09/08- 09/11 w/ abrupt worsening to 4.5 yesterday and 5.4 today. Second episode of severe CHERYL, last one Stage 3 / peak creat 4.6 prior to arrival in [place] 06/2022. improving creatinine after holding lasix and resuming at lower dose. pt 11L negative on admission but remains grossly volume overloaded. -lasix on hold; lowered lasix on 09/04 from 100 mg IV bid17 (had 3 doses total )> 60 mg IV bid17 until evening 09/08 b/c of worsening renal function >despite CXR note that respiratory status worsened w/ stopping lasix; for now we have no alternative to stopping diuretics however >> may need to reinvolve pulmonary given worsening respiratory parameters >diuretics back on hold as of 09/12 AM; had IVF ordered renal diet and reviewed its importance w/ pt/ > will need reinforcement -for now no fluid limit - Replace K to keep levels> 4. -Daily BMP and avoid nephrotoxins -lower BP now >> bp meds on hold; defer to primary service on pain mgt -sent UACM/cx but suspect ATN from obligate diuresis -urged him to move/mobilize fluid/mm as much as possible -did bring up possibility of dialysis if his renal function does not stabilize dialysis will be extremely challenging for this 450 lb patient; will monitor for now (2) Anemia: Plan: Patient with anemia due to GI bleed; now on AC d/t LUE DVT. Continue to monitor and transfuse as needed for hemoglobin less than 7. Admission and Anticipated Discharge Date Admission Date: August 29, 2022 Subjective had hypotension overnight and got IVF; remains oliguric. uncontrolled generalized joint pain. denies sob; at bedside. pt eating outside [facility] food brought by Review of Systems Review of Systems: All systems reviewed & are unremarkable except as noted in Subjective Physical Exam Constitutional: well developed, well nourished, + obese and cooperative; no acute distress Eyes: EOM intact bilaterally ENMT: Ears: no external ear abnormality Nose: no external nose abnormality Mouth: + dry oral mucous membranes Neck: no nuchal rigidity Respiratory: + labored breathing (slight); no respiratory distress Auscultation: + diminished lung sounds and + rhonchi Cardiovascular: Rate/Rhythm: regular rate, regular rhythm and + tachycardic Extremities: + edema (1+ pedal; trace dep; LUE edema) Gastrointestinal (Abdomen): Inspection/Auscultation: normal bowel sounds Percussion/Palpation: abdomen soft; abdomen nontender Musculoskeletal: Extremities: strength 5/5 throughout Skin: no rashes, warm and dry Genitourinary: crenshaw Results & Data ([facility]) Vital Signs (Past 12 Hours) Vital Signs Temp Pulse Pulse Pulse Resp BP Pulse Ox 09/13/22 16:22 102/58 L 09/13/22 14:02 66 09/13/22 14:40 36.4 C L 64 23 99/50 L 93 09/13/22 14:37 86/54 L 09/13/22 13:25 81/50 L 09/13/22 12:11 85/47 L 09/13/22 12:02 36.7 C 62 20 70/49 L 96 09/13/22 09:16 09/13/22 06:31 65 09/13/22 08:08 36.9 C 63 21 106/62 96 09/13/22 06:04 65 120/74 O2 Del Method O2 Flow Rate 09/13/22 16:22 09/13/22 14:02 09/13/22 14:40 Oxymask 4 09/13/22 14:37 09/13/22 13:25 09/13/22 12:11 09/13/22 12:02 Nasal Cannula 4 09/13/22 09:16 Nasal Cannula 4 09/13/22 06:31 09/13/22 08:08 BiPAP 09/13/22 06:04 Laboratory Results 09/13/22 04:45 09/13/22 04:45
[2022-09-13 19:47] LABS: Calcium 8.1 mg/dl (8.5-10.1); Creatinine Clr Calc Pharmacy 27.8 ml/min; Est GFR (African American) 12.1 ml/min; Est GFR (Non-African American) 10.5 ml/min; Potassium 5.7 mmol/L (3.5-5.1)
[2022-09-13] MEDS ORDERED: PATIROMER CALCIUM SORBITEX 8.4 GM PACK PO STA (21:10)
[2022-09-14 02:43] LABS: A calco-baum cmplx NotReported Not Detected (NotDetected); Bact fragilis Not Reported Not Detected (NotDetected); C auris Not Reported Not Detected (NotDetected); Calbicans Not Reported Not Detected (NotDetected); Candida glabrata Not Reported Not Detected (NotDetected); Candida krusei Not Reported Not Detected (NotDetected); Cneoformans/gatti Not Reported Not Detected (NotDetected); Cparapsilosis Not Reported Not Detected (NotDetected); Ctropicalis Not Reported Not Detected (NotDetected); E cloacae compx Not Reported Not Detected (NotDetected); Efaecalis Not Reported Not Detected (NotDetected); Efaecium Not Reported Not Detected (NotDetected); Enterobacterales Not Reported Not Detected (NotDetected); Escherichia coli Not Reported Not Detected (NotDetected); H influenzae Not Reported Not Detected (NotDetected); K aerogenes Not Reported Not Detected (NotDetected); Koxytoca Not Reported Not Detected (NotDetected); Kpneumoniae grp Not Reported Not Detected (NotDetected); Lmonocyt Not Reported Not Detected (NotDetected); N meningitidis Not Reported Not Detected (NotDetected); P aeruginosa Not Reported Not Detected (NotDetected); Proteus spp Not Reported Not Detected (NotDetected); Salmonella spp Not Reported Not Detected (NotDetected); Smarcescens Not Reported Not Detected (NotDetected); Staph lugdunensis Not Reported Not Detected (NotDetected); Staph spp. Not Reported DETECTED (NotDetected); Staphaureus Not Reported Not Detected (NotDetected); Staphepi Not Reported DETECTED (NotDetected); Staphylococcus spp. DETECTED (NotDetected); Stenmaltophilia Not Reported Not Detected (NotDetected); Strep agal(GrpB) Not Reported Not Detected (NotDetected); Strep pneum Not Reported Not Detected (NotDetected); Strep pyog (GrpA) Not Reported Not Detected (NotDetected); Strep spp Not Reported Not Detected (NotDetected); mecAC Resistant Gene DETECTED (NotDetected)
[2022-09-14 03:04] LABS: Staphylococcus epidermidis DETECTED (NotDetected)
[2022-09-14] MEDS ORDERED: DAPTOmycin 800 MG in SYRINGE 0 ML IV SCH (04:00)
--- NOTE | 2022-09-14 05:27 | Hospitalist Progress Note ---
Date of Service September 14, 2022 Assessment & Plan (1) DVT (deep venous thrombosis): Plan: Now with a superficial thrombosis on the right. While this may have evolved while he was transitioning from heparin to warfarin, it predates his achieving therapeutic levels of warfarin and thus does not represent a "failure" of that medication. Should always consider whether a malignancy underlies the presentation of multifocal thrombosis but CT scans of chest/abdomen/pelvis did not indicate any threatening malignancy. Could consider checking a PSA but even if that is elevated, without major visceral changes or threatening bone lesion on CT scans not clear that that would be urgently approached with diagnosis or treatment. Wonder whether this still represents at least in part ongoing challenges of venous access and trauma to the superficial venous system. Would continue anticoagulation for at least 3 months unless he develops major GI bleeds or other contraindications. If doing well otherwise can reassess at that point for longer-term recommendations. DOAC's would still be somewhat problematic in the face of worsening renal disease and the lesser reversibility. Do not think that he would be particularly interested in long-term subcutaneous heparin. (2) Anemia: Plan: Multifactorial with a shift over to renal failure associated anemia probably exacerbated by the acute inflammation related to his infections further suppressing erythropoiesis. From strict hematology standpoint he is in a reasonable hemoglobin range and would not necessarily need ARUNA's but could see if renal feels more strongly about the role for augmenting hemoglobin levels in the face of renal insufficiency. Erythropoietin has been associated with increased thrombosis issues, however, so must be approached more cautiously in this particular case. Ferritin level suggests that we have more than adequately repleted his iron stores, would continue to give empiric folic acid and might want to check ferritin intermittently (every 4 weeks, sooner if unexpected drop in H&H) to assess for any occult recurrence of iron deficiency representing a clinically inapparent GI bleed. Not clear that there was ever a specific source for GI bleeding established, major repeat episodes might warrant reassessment and particularly question of a bleeding scan. Plan Seems stable from an iron and hemoglobin standpoint for now with some consideration for ARUNA's as above if felt warranted from a renal standpoint though concerned over their use given the potential thrombosis risk. Would continue warfarin for now. Might consider PSA to see if there is any suggestion of underlying prostate cancer though in his acute setting without more significant visceral or bone issues seen on CT scans not clear that we would immediately approach that diagnostically or therapeutically. Reassess warfarin after 3 months, sooner if there develops major bleeding or other potential contraindication Much also depends upon his fundamental decisions with regards to overall aggression of care though even in the pure palliative setting, ongoing warfarin and support of iron levels would be reasonable issues to maintain quality of life in preventing preferring further thrombosis (assuming no major bleeding) and maintaining reasonably adequate hemoglobin levels. Hematology will sign off but we are delighted to become back involved if additional questions arise during this admission with which we can help Admission and Anticipated Discharge Date Admission Date: August 29, 2022 Subjective Hemoglobin remained stable and adequate from hematology standpoint, seems to be tolerating warfarin reasonably well, acute issues focus more on his renal dysfunction and infection issues say he has his chronic challenges of morbid obesity and respiratory dysfunction. He has developed a right superficial but not deep thrombosis. Physical Exam Physical Exam: VSS with adequate oxygenation on BiPAP Results & Data Results & Data ([facility]) Vital Signs (Past 12 Hours) Vital Signs Temp Pulse Pulse Pulse Resp BP Pulse Ox 09/14/22 02:42 36.6 C 70 23 119/73 93 09/14/22 02:22 69 22 93 09/13/22 23:51 67 17 96 09/13/22 23:39 37.0 C 68 22 113/65 94 09/13/22 22:17 65 09/13/22 20:00 09/13/22 22:25 22 100/63 95 09/13/22 21:00 98/61 L 09/13/22 20:22 66 85/48 L 09/13/22 19:48 102/52 L 09/13/22 19:40 36.9 C 64 22 89/54 L 95 O2 Del Method O2 Flow Rate 09/14/22 02:42 BiPAP 09/14/22 02:22 7 09/13/22 23:51 7 09/13/22 23:39 BiPAP 5 09/13/22 22:17 09/13/22 20:00 Nasal Cannula 4 09/13/22 22:25 BiPAP 5 09/13/22 21:00 09/13/22 20:22 09/13/22 19:48 09/13/22 19:40 Oxymask 4 PG Care Time/CCT Total # of Minutes Spent Total Time Spent with Patient: Total time spent is greater than 50% in coordination of care (as documented) at patient's floor/unit and/or counseling patient: Coding Level of Care Code 68815 Subseq Hosp Care Lvl 1 Diagnoses DVT (deep venous thrombosis) I82.409 Anemia D64.9
[2022-09-14 06:18] LABS: Hematocrit (blood only) 27.6 % (40.1-51.0); Hemoglobin 8.6 g/dl (14.0-18.0); Mean Corpuscular Hemoglobin 29.2 pg (25.0-34.0); Mean Corpuscular Hgb Conc 31.2 g/dL (32.0-36.0); Mean Corpuscular Volume 93.6 fL (80.0-100.0); Mean Platelet Volume 9.8 fL (9.4-12.4); Platelet Count 253 K/uL (130-400); RDW Coefficient of Variation 14.8 % (11.5-14.5); RDW Standard Deviation 50.8 fL (36.4-46.3); Red Blood Count 2.95 M/uL (4.63-6.08); White Blood Count 6.51 K/ul (4.8-10.8)
[2022-09-14 06:37] LABS: BUN Creatinine Ratio 15.6 (10-20); Calcium 8.5 mg/dl (8.5-10.1); Creatinine Clr Calc Pharmacy 30.8 ml/min; Est GFR (African American) 13.6 ml/min; Est GFR (Non-African American) 11.8 ml/min; Potassium 5.3 mmol/L (3.5-5.1)
[2022-09-14] MEDS: oxyCODONE HCL IR 5 MG TAB (IMMEDIATE RELEASE) PO PRN ×2 (08:46→15:15)
[2022-09-14] MEDS: PANTOprazole 40 MG TAB PO SCH ×2 (08:47→20:35)
[2022-09-14] MEDS: CYANOCOBALAMIN (B-12) 100 MCG TABLET PO SCH (08:48)
[2022-09-14] MEDS: FOLIC ACID 1 MG TAB PO SCH (08:48)
[2022-09-14] MEDS: DOCUSATE SODIUM 100 MG CAP PO SCH ×2 (08:48→20:35)
--- NOTE | 2022-09-14 09:06 | Nephrology Progress Note ---
Date of Service September 14, 2022 Assessment & Plan (1) CHERYL (acute kidney injury): Plan: slightly improved stage 3 borderline oliguric acute kidney injury due to ische tasha ATN in setting of acute blood loss anemia, obligate diuresis. Admission creatinine of 3.6; baseline 1.4; victor manuel 2.1 on 09/06; plateau'd at 3 or 3.1 09/08-09/11 w/ abrupt worsening to peak at 5.4 12., improved today. Second episode of Stage 3 CHERYL / peak creat 4.6 prior to arrival in [place] 06/2022. improving creatinine after holding lasix entirely and fluid resuscitation. UA inflamed but not infected. -lasix on hold >note that respiratory status worsened w/ stopping lasix; for now we have no alternative to stopping diuretics however >> may need to reinvolve pulmonary if worsening respiratory parameters >diuretics back on hold as of 09/12 AM; had IVF yesterday and some improvement today > continue renal diet and reviewed its importance w/ pt/ > will need reinforcement -for now no fluid limit -Daily BMP and avoid nephrotoxins >> bp and rate control meds on hold; >defer to primary service on pain mgt ->>> again urged him to move/mobilize fluid/mm as much as possible dialysis will be extremely challenging for this 450 lb patient and really hope we can avoid this; will monitor for now and hope for further improvement Admission and Anticipated Discharge Date Admission Date: August 29, 2022 Subjective some anxiety this am about his renal function but when I met w/ him he denied concerns/questions about kidneys Review of Systems Review of Systems: All systems reviewed & are unremarkable except as noted in Subjective Physical Exam Constitutional: well developed, well nourished, + obese and cooperative; no acute distress Eyes: EOM intact bilaterally ENMT: Ears: no external ear abnormality Nose: no external nose abnormality Mouth: + dry oral mucous membranes Neck: no nuchal rigidity Respiratory: + labored breathing (slight); no respiratory distress Auscultation: + diminished lung sounds and + rhonchi Cardiovascular: Rate/Rhythm: regular rate, regular rhythm and + tachycardic Extremities: + edema (1+ pedal; trace dep; LUE edema) Gastrointestinal (Abdomen): Inspection/Auscultation: normal bowel sounds Percussion/Palpation: abdomen soft; abdomen nontender Musculoskeletal: Extremities: strength 5/5 throughout Skin: no rashes, warm and dry Neurologic: [place], fluent speech, no tremor Results & Data ([facility]) Vital Signs (Past 12 Hours) Vital Signs Temp Pulse Pulse Pulse Resp BP Pulse Ox 09/14/22 08:00 36.9 C 76 22 110/76 93 09/14/22 02:42 36.6 C 70 23 119/73 93 09/14/22 02:22 69 22 93 09/13/22 23:51 67 17 96 09/13/22 23:39 37.0 C 68 22 113/65 94 09/13/22 22:17 65 09/13/22 22:25 22 100/63 95 O2 Del Method O2 Flow Rate 09/14/22 08:00 Oxymask 4 09/14/22 02:42 BiPAP 09/14/22 02:22 7 09/13/22 23:51 7 09/13/22 23:39 BiPAP 5 09/13/22 22:17 09/13/22 22:25 BiPAP 5 Laboratory Results 09/14/22 05:57 09/14/22 05:57
--- NOTE | 2022-09-14 12:00 | Hospitalist Progress Note ---
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 No recent antibiotic treatment. Patient was increasingly sleepy as per at presentation. Patient with hemoglobin of 5.9 at admission and received 2 units PRBC transfusion in the ED. Of note, patient moved back to [place] from [place] last June 2022, patient had 3 hospital confinements at [place] for kidney failure and hypoxia prior to return to [place] per his . He is being managed for the following: Metabolic encephalopathy: Multifactorial likely secondary to respiratory failure Possible OHS/untreated RUTH [patient has still to go for a sleep study ] Acute on chronic anemia secondary to lower GI bleed ARF on CKD. 09/08-09/09 nocturnal pulse oximetry with 9 desaturation events, time is spent in desaturation greater than 5 minutes and time spent with saturation less than 89% is 1 hour 28-minute. 09/09 AM ABG with PCO2 of 55. Patient was not on BiPAP here. Patient will likely need BiPAP upon discharge. Continue to use BIPAP HS/prn Counseled on need for adherence Mental status back to baseline Resp failure w/ hypercapnia; Obesity hypoventilation syndrome: Has evidence of chronic compensated hypercapnic respiratory failure based on ABG. Continue BiPAP when sleeping. Pulmonology evaluated and recommends outpatient BiPAP and follow-up with sleep clinic. Need formal sleep study outpatient Also requiring oxygen during the day. Prefers oxymask for comfort Bacteremia Patient started having hypotensive episodes overnight 09/13/22 Got IVF boluses Blood culture growing GPC in clusters (staph epidermidis by PCR) Continue daptomycin Repeat blood cultures today Antihypertensives are currently on hold ID consult and TTE Acute on chronic anemia Acute blood loss anemia Likely lower GI bleeding Patient presented with complaints of bloody diarrhea Hemoglobin of 5.9 at admission Status post 6 unit PRBC transfusion so far. Iron level low --> s/p iron transfusion x 2. GI evaluated, status post EGD and colonoscopy. 08/31 EGD: No evidence of UGI bleeding, 2 duodenal polyps likely hyperplastic were biopsied with a cold forceps. --> HPE: 2 fragments of polypoid duodenal mucosa with nonspecific duodenitis. Negative for malignancy. 09/01 colonoscopy: The perianal and digital rectal exam were normal. A 10 mm polyp was found in the rectum which was removed with a cold snare and clips [MR conditional] were placed. HPE result is tubular adenoma, negative for high- grade dysplasia. Also diverticulosis in the sigmoid colon were noted. Nonbleeding internal hemorrhoids were noted. Recommendation is to repeat colonoscopy in 5 years for surveillance. Since no evidence of GI bleeding, recommended hematology evaluation. 09/01 peripheral smear: Reviewed FOBT negative, Ferritin > 700. Transfuse hemoglobin if less than 7 or for symptomatic anemia. Last transfusion needed on 09/02/22 Hemoglobin has been stable, Continue with folic acid and vitamin B12. Hematology recommendations noted Repeat Ferritin level on 09/15 Continue with p.o. pantoprazole. Continue to monitor Hb Acute DVT: Per patient's , patient has not been mobile since October 2021 He used to be able to walk with cane prior to that. Patient was not on any pharmacological DVT prophylaxis initially because of GI bleed. Patient complained of left arm pain and was scanned for DVT on 09/05/2022 evening which came back positive for DVT in mid to distal left brachial vein. Also now has superficial clot in right UE Continue warfarin CHERYL over CKD: Patient reported having CHERYL being hospitalized for it in [place]. Admitting CT abdomen pelvis with abnormal imaging of kidneys (bilateral kidneys with intermidiate density lesions likley hemorrhagic/proteinaceous cysts US renal: No renal calculi or hydronephrosis or solid renal mass. Bilateral simple and complex renal cyst. Bilateral diffuse cortical thinning with decreased corticomedullary differentiation compatible with chronic medical renal disease. 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 Other chronic medical conditions: Ongoing tobacco abuse, HTN, HLD, morbid obesity, gout/rheumatoid arthritis, chronic back pain, medication noncompliance DVT prophylaxis: warfarin Full code Patient's Rima Bowie: [phone]. Disposition: inpatient for now Palliative eval noted Continue PT/OT while inpatient Spent over 35 mins providing counseling, explaining patient's clinical issues. I explained that there is no medical necessity for transfer at this time. I explained the challenges his comorbidities play in his care. I answered all his questions to his satisfaction Admission and Anticipated Discharge Date Admission Date: August 29, 2022 Subjective Patient seen and examined Reports bilateral hand pains with movement Reports generalized weakness Denied any cough, chest pain, shortness of breath at rest Denied nausea, vomiting, abd pain Denied fevers or chills. Reports chronic knee pain. Reports he has been bedbound for most of the year. Ambulatory dysfunction has worsened last year overtime while he lived in [place] Reports feeling frustrated with his clinical status and diagnoses, asking about discharge plans or transfer plans Blood cultures from 09/13 came back positive overnight and was started on daptomycin Physical Exam Constitutional: + well hydrated and + morbidly obese; no acute distress Eyes: PERRL, conjunctivae normal, anicteric sclerae ENMT: external ear and nose normal, oropharynx normal Respiratory: normal respiratory effort; no respiratory distress Auscultation: + diminished lung sounds Cardiovascular: Rate/Rhythm: regular rate and regular rhythm S1 S2 Gastrointestinal (Abdomen): normal bowel sounds, soft, nontender, no hepatosplenomegaly Musculoskeletal: Bilateral +1 pedal edema, Left hand edema, trace right hand edema Neurologic: PERRL, EOMI, accommodation nl, no face palsy, no dysarthria Psychiatric: A+Ox3, euthymic affect Results & Data Results & Data ([facility]) Vital Signs (Past 12 Hours) Vital Signs Temp Pulse Pulse Pulse Resp BP Pulse Ox 09/14/22 11:59 36.6 C 81 22 104/65 96 09/14/22 08:00 36.9 C 76 22 110/76 93 09/14/22 02:42 36.6 C 70 23 119/73 93 09/14/22 02:22 69 22 93 O2 Del Method O2 Flow Rate 09/14/22 11:59 Oxymask 4 09/14/22 08:00 Oxymask 4 09/14/22 02:42 BiPAP 09/14/22 02:22 7 Laboratory Results Abnormal lab results 12/09/13/22 09/14/22 Range/Units 04:45 18:33 05:57 RBC 2.95 L (4.63-6.08) M/uL Hgb 8.6 L (14.0-18.0) g/dl Hct 27.6 L (40.1-51.0) % MCHC 31.2 L (32.0-36.0) g/dL RDW Std Deviation 50.8 H (36.4-46.3) fL RDW Coeff of Cheryl 14.8 H (11.5-14.5) % Sodium 132 L (136-145) mmol/L Potassium 5.7 H (3.5-5.1) mmol/L Chloride 94 L (98-107) mmol/L BUN 78 H (6-23) mg/dl Creatinine 5.59 H* (0.6-1.4) mg/dl Calcium 8.1 L (8.5-10.1) mg/dl Staphylococcus sp PCR DETECTED A (NotDetected) mecA/C-Methicil Resis Gene DETECTED A (NotDetected) Staph epidermidis (PCR) DETECTED A (NotDetected) 09/14/22 Range/Units 05:57 RBC (4.63-6.08) M/uL Hgb (14.0-18.0) g/dl Hct (40.1-51.0) % MCHC (32.0-36.0) g/dL RDW Std Deviation (36.4-46.3) fL RDW Coeff of Cheryl (11.5-14.5) % Sodium 133 L (136-145) mmol/L Potassium 5.3 H (3.5-5.1) mmol/L Chloride 95 L (98-107) mmol/L BUN 79 H (6-23) mg/dl Creatinine 5.07 H* D (0.6-1.4) mg/dl Calcium (8.5-10.1) mg/dl Staphylococcus sp PCR (NotDetected) mecA/C-Methicil Resis Gene (NotDetected) Staph epidermidis (PCR) (NotDetected)
[2022-09-14] MEDS: WARFARIN SOD 4 MG TAB PO SCH (16:23)
[2022-09-15] MEDS: oxyCODONE HCL IR 5 MG TAB (IMMEDIATE RELEASE) PO PRN ×3 (04:42→21:10)
[2022-09-15 06:38] LABS: Hematocrit (blood only) 26.5 % (40.1-51.0); Hemoglobin 8.4 g/dl (14.0-18.0); Mean Corpuscular Hemoglobin 29.2 pg (25.0-34.0); Mean Corpuscular Hgb Conc 31.7 g/dL (32.0-36.0); Platelet Count 285 K/uL (130-400); RDW Coefficient of Variation 14.9 % (11.5-14.5); RDW Standard Deviation 50.5 fL (36.4-46.3); Red Blood Count 2.88 M/uL (4.63-6.08); White Blood Count 5.35 K/ul (4.8-10.8)
[2022-09-15 06:49] LABS: INR 2.6 (0.9-1.1)
[2022-09-15 07:00] LABS: BUN Creatinine Ratio 18.4 (10-20); Calcium 8.6 mg/dl (8.5-10.1); Creatinine Clr Calc Pharmacy 36.8 ml/min; Est GFR (African American) 16.9 ml/min; Est GFR (Non-African American) 14.6 ml/min; Potassium 4.7 mmol/L (3.5-5.1)
[2022-09-15 08:16] LABS: Ferritin 626.9 ng/ml (8-388)
[2022-09-15] MEDS: ACETAMINOPHEN 325 MG TAB PO PRN (09:16)
[2022-09-15] MEDS: DAPTOmycin 800 MG in SYRINGE 0 ML IV SCH (09:17)
[2022-09-15] MEDS: CYANOCOBALAMIN (B-12) 100 MCG TABLET PO SCH (09:18)
[2022-09-15] MEDS: DOCUSATE SODIUM 100 MG CAP PO SCH ×2 (09:18→21:11)
[2022-09-15] MEDS: PANTOprazole 40 MG TAB PO SCH ×2 (09:18→21:11)
[2022-09-15] MEDS: FOLIC ACID 1 MG TAB PO SCH (09:18)
--- NOTE | 2022-09-15 10:51 | Hospitalist Progress Note ---
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 No recent antibiotic treatment. Patient was increasingly sleepy as per at presentation. Patient with hemoglobin of 5.9 at admission and received 2 units PRBC transfusion in the ED. Of note, patient moved back to [place] from [place] last June 2022, patient had 3 hospital confinements at [place] for kidney failure and hypoxia prior to return to [place] per his . He is being managed for the following: CHERYL over CKD: Patient reported having CHERYL and was hospitalized in [place]. Admitting CT abdomen pelvis with abnormal imaging of kidneys (bilateral kidneys with intermidiate density lesions likley hemorrhagic/proteinaceous cysts US renal: No renal calculi or hydronephrosis or solid renal mass. Bilateral simple and complex renal cyst. Bilateral diffuse cortical thinning with decreased corticomedullary differentiation compatible with chronic medical renal disease. Baseline creatinine of around 1.4 Admitting creatinine of 2.06, peaked at 5.59 Cr is 4.24 today Diuretics still on hold. Will discuss with Nephrology about fluid management/considering low dose diuretic Protection Analyst on board Continue to monitor renal function Educated patient on renal diet Bacteremia Patient started having hypotensive episodes overnight 09/13/22 Got IVF boluses Blood culture growing GPC in clusters (staph epidermidis by PCR) Continue daptomycin Repeat blood cultures negative so far Antihypertensives are currently on hold. BP stable Will appreciate ID's input Metabolic encephalopathy: Multifactorial likely secondary to respiratory failure Possible OHS/untreated RUTH [patient has still to go for a sleep study ] Acute on chronic anemia secondary to lower GI bleed ARF on CKD. 09/08-09/09 nocturnal pulse oximetry with 9 desaturation events, time is spent in desaturation greater than 5 minutes and time spent with saturation less than 89% is 1 hour 28-minute. 09/09 AM ABG with PCO2 of 55. Patient was not on BiPAP here. Patient will likely need BiPAP upon discharge. Continue to use BIPAP HS/prn Counseled on need for adherence Mental status back to baseline Resp failure w/ hypercapnia; Obesity hypoventilation syndrome: Has evidence of chronic compensated hypercapnic respiratory failure based on ABG. Continue BiPAP when sleeping. Pulmonology evaluated and recommends outpatient BiPAP and follow-up with sleep clinic. Need formal sleep study outpatient Also requiring oxygen during the day. Prefers oxymask for comfort Acute on chronic anemia Acute blood loss anemia Likely lower GI bleeding Patient presented with complaints of bloody diarrhea Hemoglobin of 5.9 at admission Status post 6 unit PRBC transfusion so far. Iron level low --> s/p iron transfusion x 2. GI evaluated, status post EGD and colonoscopy. 08/31 EGD: No evidence of UGI bleeding, 2 duodenal polyps likely hyperplastic were biopsied with a cold forceps. --> HPE: 2 fragments of polypoid duodenal mucosa with nonspecific duodenitis. Negative for malignancy. 09/01 colonoscopy: The perianal and digital rectal exam were normal. A 10 mm polyp was found in the rectum which was removed with a cold snare and clips [MR conditional] were placed. HPE result is tubular adenoma, negative for high- grade dysplasia. Also diverticulosis in the sigmoid colon were noted. Nonbleeding internal hemorrhoids were noted. Recommendation is to repeat colonoscopy in 5 years for surveillance. Since no evidence of GI bleeding, recommended hematology evaluation. 09/01 peripheral smear: Reviewed FOBT negative, Ferritin > 700. Transfuse hemoglobin if less than 7 or for symptomatic anemia. Last transfusion needed on 09/02/22 Hemoglobin has been stable, Continue with folic acid and vitamin B12. Hematology recommendations noted Repeat Ferritin level on 09/15 626 Continue with p.o. pantoprazole. Continue to monitor Hb Acute DVT: Per patient's , patient has not been mobile since October 2021 He used to be able to walk with cane prior to that. Patient was not on any pharmacological DVT prophylaxis initially because of GI bleed. Patient complained of left arm pain and was scanned for DVT on 09/05/2022 evening which came back positive for DVT in mid to distal left brachial vein. Also now has superficial clot in right UE Continue warfarin Troponin elevation: Secondary to illness No chest pain Echo obtained with grossly normal LV systolic function without all wall segments able to be visualized. Other chronic medical conditions: Ongoing tobacco abuse, HTN, HLD, morbid obesity, gout/rheumatoid arthritis, chronic back pain, medication noncompliance DVT prophylaxis: warfarin Full code Patient's Rima Bowie: [phone]. Disposition: inpatient for now Palliative eval noted Continue PT/OT while inpatient Possible adjustment disorder. Psych consult Admission and Anticipated Discharge Date Admission Date: August 29, 2022 Subjective Patient seen and examined Reports feeling slightly better today Reports generalized weakness Denied any cough, chest pain, shortness of breath at rest Denied nausea, vomiting, abd pain Denied fevers or chills. Reports pains in both upper extremities with movement RN reports patient may be depressed. When patient was asked if he was depressed, he stated 'maybe' He denied SI/HI Physical Exam Constitutional: + well hydrated and + morbidly obese; no acute distress Eyes: PERRL, conjunctivae normal, anicteric sclerae ENMT: external ear and nose normal, oropharynx normal Respiratory: normal respiratory effort; no respiratory distress Auscultation: + diminished lung sounds Cardiovascular: Rate/Rhythm: regular rate and regular rhythm S1 S2 Gastrointestinal (Abdomen): normal bowel sounds, soft, nontender, no hepatosplenomegaly Musculoskeletal: Edema in all extremities Neurologic: PERRL, EOMI, accommodation nl, no face palsy, no dysarthria Psychiatric: A+Ox3, euthymic affect Results & Data Results & Data ([facility]) Vital Signs (Past 12 Hours) Vital Signs Temp Pulse Pulse Resp BP Pulse Ox O2 Del Method 09/15/22 06:38 36.8 C 94 H 20 113/73 94 Oxymask 09/15/22 03:31 37.8 C H 93 H 18 105/72 93 CPAP 09/15/22 02:56 94 H 19 93 09/14/22 23:53 37.5 C 94 H 22 115/74 93 CPAP O2 Flow Rate 09/15/22 06:38 5.0 09/15/22 03:31 09/15/22 02:56 7 09/14/22 23:53 Laboratory Results Abnormal lab results 09/13/22 09/15/22 09/15/22 Range/Units 18:33 06:08 06:08 RBC 2.88 L (4.63-6.08) M/uL Hgb 8.4 L (14.0-18.0) g/dl Hct 26.5 L (40.1-51.0) % MCHC 31.7 L (32.0-36.0) g/dL RDW Std Deviation 50.5 H (36.4-46.3) fL RDW Coeff of Cheryl 14.9 H (11.5-14.5) % PT 26.0 H (9.0-12.0) Seconds INR 2.6 H (0.9-1.1) BUN (6-23) mg/dl Creatinine 5.59 H* (0.6-1.4) mg/dl Ferritin (8-388) ng/ml 09/15/22 Range/Units 06:08 RBC (4.63-6.08) M/uL Hgb (14.0-18.0) g/dl Hct (40.1-51.0) % MCHC (32.0-36.0) g/dL RDW Std Deviation (36.4-46.3) fL RDW Coeff of Cheryl (11.5-14.5) % PT (9.0-12.0) Seconds INR (0.9-1.1) BUN 78 H (6-23) mg/dl Creatinine 4.24 H D (0.6-1.4) mg/dl Ferritin 626.9 H (8-388) ng/ml
--- NOTE | 2022-09-15 15:44 | Nephrology Progress Note ---
Date of Service September 15, 2022 Assessment & Plan (1) CHERYL (acute kidney injury): Plan: slightly improved stage 3 borderline oliguric acute kidney injury due to ische tasha ATN in setting of acute blood loss anemia, obligate diuresis. Admission creatinine of 3.6; baseline 1.4; victor manuel 2.1 on 09/06; plateau'd at 3 or 3.1 09/08-09/11 w/ abrupt worsening to peak at 5.4 09/13, further improved today. Second episode of Stage 3 CHERYL / peak creat 4.6 prior to arrival in [place] 06/2022. improving creatinine after holding lasix entirely and fluid resuscitation. UA inflamed but not infected. -lasix on hold and should remain so >note that respiratory status worsened at first w/ stopping lasix though resp status stable for past several days; for now we have no alternative to stopping diuretics >> may need to reinvolve pulmonary if worsening respiratory parameters >diuretics back on hold as of 09/12 AM; had IVF 09/13 > continue renal diet and reviewed its importance w/ pt > will need reinforcement -for now no fluid limit -Daily BMP and avoid nephrotoxins >> bp and rate control meds on hold; >defer to primary service on pain mgt ->>> again urged him to move/mobilize fluid/mm as much as possible dialysis will be extremely challenging for this 450 lb patient and really hope we can avoid this; will monitor for now and hope for further improvement Admission and Anticipated Discharge Date Admission Date: August 29, 2022 Subjective seen on am rounds; no c/o; feels his breathing is steady/stable; exceited that his is cookign for him; not sure howmuch she knows about low K or his other diet needs Review of Systems Review of Systems: All systems reviewed & are unremarkable except as noted in Subjective Physical Exam Constitutional: well developed, well nourished, + obese and cooperative; no acute distress Eyes: EOM intact bilaterally ENMT: Ears: no external ear abnormality Nose: no external nose abnormality Mouth: + dry oral mucous membranes Neck: no nuchal rigidity Respiratory: + labored breathing (slight); no respiratory distress Auscultation: + diminished lung sounds and + rhonchi Cardiovascular: Rate/Rhythm: regular rate, regular rhythm and + tachycardic Extremities: + edema (2+ pedal; trace dep; LUE edema) Gastrointestinal (Abdomen): Inspection/Auscultation: normal bowel sounds Percussion/Palpation: abdomen soft; abdomen nontender Musculoskeletal: Extremities: + abnormal strength Skin: no rashes, warm and dry Results & Data ([facility]) Vital Signs (Past 12 Hours) Vital Signs Temp Pulse Pulse Resp BP Pulse Ox O2 Del Method 09/15/22 08:00 94 H 09/15/22 08:00 Oxymask 09/15/22 11:36 37.0 C 90 21 113/72 95 Oxymask 09/15/22 06:38 36.8 C 94 H 20 113/73 94 Oxymask O2 Flow Rate 09/15/22 08:00 09/15/22 08:00 5 09/15/22 11:36 5.0 09/15/22 06:38 5.0 Laboratory Results 09/15/22 06:08 09/15/22 06:08
[2022-09-15] MEDS: WARFARIN SOD 4 MG TAB PO SCH (16:48)
[2022-09-16 07:13] LABS: Hematocrit (blood only) 27.5 % (40.1-51.0); Hemoglobin 8.4 g/dl (14.0-18.0); Mean Corpuscular Hemoglobin 28.6 pg (25.0-34.0); Mean Corpuscular Hgb Conc 30.5 g/dL (32.0-36.0); Mean Corpuscular Volume 93.5 fL (80.0-100.0); Mean Platelet Volume 9.7 fL (9.4-12.4); Platelet Count 295 K/uL (130-400); RDW Standard Deviation 51.7 fL (36.4-46.3); Red Blood Count 2.94 M/uL (4.63-6.08); White Blood Count 5.18 K/ul (4.8-10.8)
[2022-09-16 07:34] LABS: INR 3.4 (0.9-1.1); Prothrombin Time 33.9 Seconds (9.0-12.0)
[2022-09-16 07:40] LABS: BUN Creatinine Ratio 20.3 (10-20); Calcium 8.9 mg/dl (8.5-10.1); Creatinine Clr Calc Pharmacy 42.1 ml/min; Est GFR (African American) 19.6 ml/min; Est GFR (Non-African American) 16.9 ml/min; Potassium 4.9 mmol/L (3.5-5.1)
[2022-09-16] MEDS: DAPTOmycin 800 MG in SYRINGE 0 ML IV SCH (09:06)
[2022-09-16] MEDS: PANTOprazole 40 MG TAB PO SCH ×2 (09:06→20:59)
[2022-09-16] MEDS: FOLIC ACID 1 MG TAB PO SCH (09:06)
[2022-09-16] MEDS: oxyCODONE HCL IR 5 MG TAB (IMMEDIATE RELEASE) PO PRN ×3 (09:06→20:58)
[2022-09-16] MEDS: DOCUSATE SODIUM 100 MG CAP PO SCH ×2 (09:06→20:58)
[2022-09-16] MEDS: CYANOCOBALAMIN (B-12) 100 MCG TABLET PO SCH (09:06)
--- NOTE | 2022-09-16 10:55 | Psychiatric Consultation ---
Date of Consultation September 16, 2022 Impression / Recommendations Impression 56 yo male with multiple significant chronic medical issues that impact his level of alertness. He is not particularly interested in psychiatric intervention and would typically not add an empiric antidepressant with current kidney functioning. It is more likely he has resolving encephalopathy to explain any waxing/waning in his MSE/cooperation. Certainly anyone in the hospital with significant issues can have worsening of mood due to adjustment disorder. (1) Encephalopathy: Plan will attempt to obtain collateral from as patient is minimal historian at this time I assume vit D low as bedbound and relocated from [place] but obviously supplementation would be per hospitalist/nephro certainly has multiple ongoing causes of fatigue (RUTH, hypovent, obesity, anemia, etc.), intervention that would likely most improve quality of life would be stimulating agents to help with alertness/engagement in care, defer to hospitalist on appropriateness/dosing/timing of modafinil trial. Psych History Identifying Data 56 yo male from [place], no known formal psych hx, admit medically for respiratory issues and acute on chronic renal failure. Consult is by hospitalist service for depression vs. adjustment disorder. Chief Complaint "At least I'm getting decent care now". History of Present Illness Patient admit medically since early in the month. Hx of morbid obesity, bedbound for months leading up to presentation with encephalopathy, reportedly secondary to obesity hypoventilation syndrome/sever RUTH and altered kidney function. Creatinine improving today but peaked >5. He was seen by palliative care and his hospital course has been complicated by DVT and GI bleed. He remains somnolent but arousable. Can't tolerate much sustained conversation due to fatigue. He initially declined consult with liaison. Admits he is frustrated with three prior confinements this year for hypoxia and/or kidney issues. He really won't elaborate much on his mood. Falls back to sleep. Denies hx of psych issues/suicide attempts/hospitalizations. Unsure of his wants or needs. His sleep, focus, motivation are all negatively impacted by his medical condition so PHQ-9 is not a reliable measure of his mood. Allergies Allergy/AdvReac Type Severity Reaction Status Date / Time Iodinated Contrast Media Allergy Hives Verified 08/31/22 10:32 iodine Allergy Hives Verified 08/31/22 10:32 Home Medications Medication Instructions Recorded Confirmed Type carvedilol 6.25 mg tablet 12.5 mg PO AMHS 08/29/22 08/29/22 History verapamil 240 mg 24 hr 240 mg PO QAM 08/29/22 08/29/22 History capsule,extended release Family History declined to answer Personal History Highest Grade Completed: College Beliefs That Will Affect Care: None Patient History Medical History CHERYL (acute kidney injury) Anemia Morbid obesity Obesity hypoventilation syndrome Social History Smoking Status: Never smoker Hx Alcohol Use: No Hx Substance Use: No Preferred Language: Danish Communication Ability: Unable Cooler Supervisor Required: No Beliefs That Will Affect Care: None Current Living Situation: Spouse Feels Safe at Home: Yes Assistive Devices: Scooter/Electric Scooter and Walker Physical Exam Psychiatric: Orientation: + not alert Apperance: appropriately groomed Eye Contact: + poor eye contact Speech: + abnormal rate/rhythm/volume of speech (non spontaneous) Affect: + blunted affect Mood: + irritable mood Thought Process: + concrete thought process Thought Content: reality based without delusions Suicidal Thoughts: denies suicidal thoughts Homicidal Thoughts: denies homicidal thoughts Hallucinations: no auditory hallucinations and no visual hallucinations Cognition: language grossly intact; + attention not intact Vital Signs (Past 24 Hours): Last Vital Signs Temp 36.6 C 09/16/22 07:03 Pulse 89 09/16/22 07:03 Resp 18 09/16/22 07:03 BP 104/69 09/16/22 07:03 Pulse Ox 94 09/16/22 07:03 O2 Del Method 09/16/22 07:03 O2 Flow Rate 5 09/16/22 02:26 FiO2 3 09/10/22 22:24 Review of Systems Unobtainable due to cognitive status Results & Data ([facility]) Laboratory Results patient does have normal TSH from earlier in stay, no vitamin D level 09/16/22 09/16/22 09/16/22 Range/Units 07:03 07:03 07:03 WBC 5.18 (4.8-10.8) K/ul RBC 2.94 L (4.63-6.08) M/uL Hgb 8.4 L (14.0-18.0) g/dl Hct 27.5 L (40.1-51.0) % MCV 93.5 (80.0-100.0) fL MCH 28.6 (25.0-34.0) pg MCHC 30.5 L (32.0-36.0) g/dL RDW Std Deviation 51.7 H (36.4-46.3) fL RDW Coeff of Cheryl 15.0 H (11.5-14.5) % Plt Count 295 (130-400) K/uL MPV 9.7 (9.4-12.4) fL PT 33.9 H (9.0-12.0) Seconds INR 3.4 H (0.9-1.1) Sodium 138 (136-145) mmol/L Potassium 4.9 (3.5-5.1) mmol/L Chloride 99 (98-107) mmol/L Carbon Dioxide 32 (21-32) mmol/L Anion Gap 7 (3-11) BUN 76 H (6-23) mg/dl Creatinine 3.75 H D (0.6-1.4) mg/dl Est Cr Clr Drug Dosing 42.1 ml/min Est GFR ( Amer) 19.6 ml/min Est GFR (Non-Af Amer) 16.9 ml/min BUN/Creatinine Ratio 20.3 H (10-20) Glucose 89 (70-99(Fasting)) mg/dl Calcium 8.9 (8.5-10.1) mg/dl Medications Administered Acetaminophen (Acetaminophen 325 Mg Tab) 650 mg PO Q4H PRN PRN Reason: Mild Pain or Fever Stop: 09/28/22 07:58 Last Admin: 09/15/22 09:16 Dose: 650 mg Documented By: Admin: 09/13/22 12:21 Dose: 650 mg Documented By: CARLOS ALBERTO Admin: 09/12/22 23:37 Dose: 650 mg Documented By: Admin: 09/10/22 09:38 Dose: 650 mg Documented By: CARLOS ALBERTO Admin: 09/08/22 23:28 Dose: 650 mg Documented By: Admin: 09/07/22 14:39 Dose: 650 mg Documented By: CARLOS ALBERTO Admin: 09/02/22 17:11 Dose: 650 mg Documented By: Admin: 09/02/22 11:12 Dose: 650 mg Documented By: Admin: 08/30/22 04:27 Dose: 650 mg Documented By: SLB Carvedilol (Carvedilol 12.5 Mg Tab) 12.5 mg PO AMHS [facility] Stop: 10/07/22 08:59 Last Admin: 09/13/22 09:19 Dose: 12.5 mg Documented By: CARLOS ALBERTO Admin: 09/12/22 20:13 Dose: 12.5 mg Documented By: Admin: 09/12/22 10:15 Dose: 12.5 mg Documented By: Admin: 09/11/22 21:04 Dose: Not Given Documented By: Admin: 09/11/22 08:48 Dose: 12.5 mg Documented By: Admin: 09/10/22 21:22 Dose: 12.5 mg Documented By: Admin: 09/10/22 09:24 Dose: 12.5 mg Documented By: CARLOS ALBERTO Admin: 09/09/22 20:22 Dose: 12.5 mg Documented By: Admin: 09/09/22 08:25 Dose: 12.5 mg Documented By: Admin: 09/08/22 21:03 Dose: 12.5 mg Documented By: Admin: 09/08/22 08:54 Dose: 12.5 mg Documented By: CARLOS ALBERTO Admin: 09/07/22 20:34 Dose: 12.5 mg Documented By: Admin: 09/07/22 09:36 Dose: 12.5 mg Documented By: CARLOS ALBERTO Cyanocobalamin (Cyanocobalamin (B-12) 100 Mcg Tablet) 100 mcg PO QAM [facility] Stop: 10/06/22 08:59 Last Admin: 09/16/22 09:06 Dose: 100 mcg Documented By: Admin: 09/15/22 09:18 Dose: 100 mcg Documented By: Admin: 09/14/22 08:48 Dose: 100 mcg Documented By: Admin: 09/13/22 09:20 Dose: 100 mcg Documented By: CARLOS ALBERTO Admin: 09/12/22 10:15 Dose: 100 mcg Documented By: Admin: 09/11/22 08:49 Dose: 100 mcg Documented By: Admin: 09/10/22 09:24 Dose: 100 mcg Documented By: CARLOS ALBERTO Admin: 09/09/22 08:26 Dose: 100 mcg Documented By: Admin: 09/08/22 08:54 Dose: 100 mcg Documented By: CARLOS ALBERTO Admin: 09/07/22 09:36 Dose: 100 mcg Documented By: CARLOS ALBERTO Admin: 09/06/22 09:56 Dose: 100 mcg Documented By: CARLOS ALBERTO Docusate Sodium (Docusate Sodium 100 Mg Cap) 100 mg PO BID STACY Stop: 10/05/22 10:59 Last Admin: 09/16/22 09:06 Dose: 100 mg Documented By: Admin: 09/15/22 21:11 Dose: 100 mg Documented By: Admin: 09/15/22 09:18 Dose: 100 mg Documented By: Admin: 09/14/22 20:35 Dose: 100 mg Documented By: Admin: 09/14/22 08:48 Dose: 100 mg Documented By: AMDebbie Admin: 09/13/22 20:21 Dose: 100 mg Documented By: Admin: 09/13/22 09:19 Dose: 100 mg Documented By: CARLOS ALBERTO Admin: 09/12/22 20:12 Dose: 100 mg Documented By: Admin: 09/12/22 10:15 Dose: 100 mg Documented By: Admin: 09/11/22 21:05 Dose: Not Given Documented By: Admin: 09/11/22 08:48 Dose: 100 mg Documented By: Admin: 09/10/22 21:23 Dose: Not Given Documented By: Admin: 09/10/22 09:24 Dose: 100 mg Documented By: CARLOS ALBERTO Admin: 09/09/22 20:22 Dose: Not Given Documented By: Admin: 09/09/22 08:26 Dose: 100 mg Documented By: Admin: 09/08/22 21:02 Dose: Not Given Documented By: Admin: 09/08/22 08:54 Dose: 100 mg Documented By: CARLOS ALBERTO Admin: 09/07/22 20:34 Dose: 100 mg Documented By: Admin: 09/07/22 09:36 Dose: 100 mg Documented By: CARLOS ALBERTO Admin: 09/06/22 20:10 Dose: 100 mg Documented By: Admin: 09/06/22 09:02 Dose: 100 mg Documented By: CARLOS ALBERTO Admin: 09/05/22 20:32 Dose: 100 mg Documented By: Admin: 09/05/22 12:28 Dose: 100 mg Documented By: SHANNON Folic Acid (Folic Acid 1 Mg Tab) 1 mg PO QAM STACY Stop: 10/02/22 11:59 Last Admin: 09/16/22 09:06 Dose: 1 mg Documented By: Admin: 09/15/22 09:18 Dose: 1 mg Documented By: Admin: 09/14/22 08:48 Dose: 1 mg Documented By: Admin: 09/13/22 09:19 Dose: 1 mg Documented By: CARLOS ALBERTO Admin: 09/12/22 10:15 Dose: 1 mg Documented By: Admin: 09/11/22 08:48 Dose: 1 mg Documented By: Admin: 09/10/22 09:24 Dose: 1 mg Documented By: CARLOS ALBERTO Admin: 09/09/22 08:26 Dose: 1 mg Documented By: Admin: 09/08/22 08:54 Dose: 1 mg Documented By: CARLOS ALBERTO Admin: 09/07/22 09:36 Dose: 1 mg Documented By: CARLOS ALBERTO Admin: 09/06/22 09:02 Dose: 1 mg Documented By: CARLOS ALBERTO Admin: 09/05/22 08:51 Dose: 1 mg Documented By: Admin: 09/04/22 07:55 Dose: 1 mg Documented By: Admin: 09/03/22 08:59 Dose: 1 mg Documented By: Admin: 09/02/22 13:56 Dose: 1 mg Documented By: Daptomycin 800 mg/ Syringe 16 mls @ 8 mls/min IV Q24H STACY; Protocol Stop: 09/28/22 07:59 Last Admin: 09/16/22 09:06 Dose: 8 mls/min Documented By: Admin: 09/15/22 09:17 Dose: 8 mls/min Documented By: SHONDA Pantoprazole Sodium (Pantoprazole 40 Mg Tab) 40 mg PO BID STACY Stop: 10/08/22 20:59 Last Admin: 09/16/22 09:06 Dose: 40 mg Documented By: Admin: 09/15/22 21:11 Dose: 40 mg Documented By: Admin: 09/15/22 09:18 Dose: 40 mg Documented By: Admin: 09/14/22 20:35 Dose: 40 mg Documented By: Admin: 09/14/22 08:47 Dose: 40 mg Documented By: Admin: 09/13/22 20:22 Dose: 40 mg Documented By: Admin: 09/13/22 09:19 Dose: 40 mg Documented By: CARLOS ALBERTO Admin: 09/12/22 20:13 Dose: 40 mg Documented By: Admin: 09/12/22 10:15 Dose: 40 mg Documented By: Admin: 09/11/22 21:04 Dose: 40 mg Documented By: Admin: 09/11/22 08:48 Dose: 40 mg Documented By: Admin: 09/10/22 21:22 Dose: 40 mg Documented By: Admin: 09/10/22 09:24 Dose: 40 mg Documented By: CARLOS ALBERTO Admin: 09/09/22 20:22 Dose: 40 mg Documented By: Admin: 09/09/22 08:26 Dose: 40 mg Documented By: Admin: 09/08/22 21:02 Dose: 40 mg Documented By: SANAM Verapamil HCl (Verapamil Hcl 240 Mg Tabcr) 240 mg PO QAM STACY Stop: 09/28/22 08:59 Last Admin: 09/12/22 10:16 Dose: 240 mg Documented By: Admin: 09/11/22 08:48 Dose: 240 mg Documented By: Admin: 09/10/22 09:24 Dose: 240 mg Documented By: CARLOS ALBERTO Admin: 09/09/22 08:26 Dose: 240 mg Documented By: Admin: 09/08/22 08:54 Dose: 240 mg Documented By: CARLOS ALBERTO Admin: 09/07/22 11:11 Dose: 240 mg Documented By: CARLOS ALBERTO Admin: 09/02/22 07:55 Dose: 240 mg Documented By: Admin: 09/01/22 08:44 Dose: 240 mg Documented By: Admin: 08/31/22 16:45 Dose: 240 mg Documented By: Admin: 08/31/22 08:43 Dose: Not Given Documented By: Admin: 08/30/22 09:42 Dose: Not Given Documented By: Admin: 08/29/22 12:34 Dose: Not Given Documented By: GARCIA(2) Warfarin Sodium (Warfarin Sod 4 Mg Tab) 4 mg PO DAILY@1600 STACY Stop: 10/11/22 15:59 Last Admin: 09/15/22 16:48 Dose: 4 mg Documented By: Admin: 09/14/22 16:23 Dose: 4 mg Documented By: Admin: 09/13/22 16:18 Dose: 4 mg Documented By: CARLOS ALBERTO Admin: 09/12/22 17:04 Dose: 4 mg Documented By: Admin: 09/11/22 18:23 Dose: 4 mg Documented By: ROSALINA Coding Level of Care Code 42730 U Intl Hosp Care Lvl 2 Diagnoses Encephalopathy G93.40
--- NOTE | 2022-09-16 11:52 | Hospitalist Progress Note ---
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 No recent antibiotic treatment. Patient was increasingly sleepy as per at presentation. Patient with hemoglobin of 5.9 at admission and received 2 units PRBC transfusion in the ED. Of note, patient moved back to [place] from [place] last June 2022, patient had 3 hospital confinements at [place] for kidney failure and hypoxia prior to return to [place] per his . He is being managed for the following: CHERYL over CKD: Patient reported having CHERYL and was hospitalized in [place]. Admitting CT abdomen pelvis with abnormal imaging of kidneys (bilateral kidneys with intermidiate density lesions likley hemorrhagic/proteinaceous cysts US renal: No renal calculi or hydronephrosis or solid renal mass. Bilateral simple and complex renal cyst. Bilateral diffuse cortical thinning with decreased corticomedullary differentiation compatible with chronic medical renal disease. Baseline creatinine of around 1.4 Admitting creatinine of 2.06, peaked at 5.59 Cr is 3.74 today Diuretics still on hold. Inspector Technician on board. Discussed with Inspector Technician yesterday. She stated to keep holding off diuretics. Will defer diuretic management to geotechnician Continue to monitor renal function Initial blood cultures on presentation were negative 1 set of blood cultures obtained during a hypotensive episode grew CONS The other set is negative Repeat blood culture negative so far No fever or leukocytosis This may be contaminant If repeat cultures remain negative past 48h, will stop daptomycin and monitor Metabolic encephalopathy: Multifactorial likely secondary to respiratory failure Possible OHS/untreated RUTH [patient has still to go for a sleep study ] Acute on chronic anemia secondary to lower GI bleed ARF on CKD. 09/08-09/09 nocturnal pulse oximetry with 9 desaturation events, time is spent in desaturation greater than 5 minutes and time spent with saturation less than 89% is 1 hour 28-minute. 09/09 AM ABG with PCO2 of 55. Patient will likely need BiPAP upon discharge. Continue to use BIPAP HS/prn Resp failure w/ hypercapnia; Obesity hypoventilation syndrome: Has evidence of chronic compensated hypercapnic respiratory failure based on ABG. Continue BiPAP when sleeping. Pulmonology evaluated and recommends outpatient BiPAP and follow-up with sleep clinic. Need formal sleep study outpatient Also requiring oxygen during the day. Prefers oxymask sometimes for comfort Acute on chronic anemia Acute blood loss anemia Likely lower GI bleeding Patient presented with complaints of bloody diarrhea Hemoglobin of 5.9 at admission Status post 6 unit PRBC transfusion so far. Iron level low --> s/p iron transfusion x 2. GI evaluated, status post EGD and colonoscopy. 08/31 EGD: No evidence of UGI bleeding, 2 duodenal polyps likely hyperplastic were biopsied with a cold forceps. --> HPE: 2 fragments of polypoid duodenal mucosa with nonspecific duodenitis. Negative for malignancy. 09/01 colonoscopy: The perianal and digital rectal exam were normal. A 10 mm polyp was found in the rectum which was removed with a cold snare and clips [MR conditional] were placed. HPE result is tubular adenoma, negative for high- grade dysplasia. Also diverticulosis in the sigmoid colon were noted. Nonbleeding internal hemorrhoids were noted. Recommendation is to repeat colonoscopy in 5 years for surveillance. Since no evidence of GI bleeding, r ecommended hematology evaluation. 09/01 peripheral smear: Reviewed FOBT negative, Ferritin > 700. Transfuse hemoglobin if less than 7 or for symptomatic anemia. Last transfusion needed on 09/02/22 Hemoglobin has been stable, Continue with folic acid and vitamin B12. Hematology recommendations noted Repeat Ferritin level on 09/15 626 Continue with p.o. pantoprazole. Continue to monitor Hb Acute DVT: Per patient's , patient has not been mobile since October 2021 He used to be able to walk with cane prior to that. Patient was not on any pharmacological DVT prophylaxis initially because of GI bleed. Patient complained of left arm pain and was scanned for DVT on 09/05/2022 evening which came back positive for DVT in mid to distal left brachial vein. Also now has superficial clot in right UE INR is supratherapeutic at 3.4 today. Will hold off warfarin today and monitor Troponin elevation: Secondary to illness No chest pain Echo obtained with grossly normal LV systolic function without all wall segments able to be visualized. Other chronic medical conditions: Ongoing tobacco abuse, HTN, HLD, morbid obesity, gout/rheumatoid arthritis, chronic back pain, medication noncompliance DVT prophylaxis: warfarin Full code Patient's Rima Bowie: [phone]. Disposition: Plan for SNF Palliative eval noted Continue PT/OT while inpatient Will follow up psych evaluation Admission and Anticipated Discharge Date Admission Date: August 29, 2022 Subjective Patient seen and examined Patient was sleepy but arousable RN reported he had got oxycodone for pain this morning He reports pain in both hands. Denied any cough, chest pain, shortness of breath Denied abd pain, nausea, vomiting, diarrhea No fevers or chills Physical Exam Constitutional: + well hydrated and + morbidly obese; no acute distress Eyes: PERRL, conjunctivae normal, anicteric sclerae ENMT: external ear and nose normal, oropharynx normal Respiratory: normal respiratory effort; no respiratory distress Auscultation: + diminished lung sounds Cardiovascular: Rate/Rhythm: regular rate and regular rhythm S1 S2 Gastrointestinal (Abdomen): normal bowel sounds, soft, nontender, no hepatosplenomegaly Neurologic: PERRL, EOMI, accommodation nl, no face palsy, no dysarthria Psychiatric: Drowsy but arousable, oriented to person, place, month and year Results & Data Results & Data ([facility]) Vital Signs (Past 12 Hours) Vital Signs Temp Pulse Pulse Resp BP Pulse Ox O2 Del Method 09/16/22 07:03 36.6 C 89 18 104/69 94 BiPAP 09/16/22 03:20 36.8 C 93 H 18 114/68 90 BiPAP 09/16/22 02:26 90 20 90 09/16/22 00:08 88 91 O2 Flow Rate 09/16/22 07:03 09/16/22 03:20 09/16/22 02:26 5 09/16/22 00:08 5 Laboratory Results Abnormal lab results 09/16/22 09/16/22 09/16/22 Range/Units 07:03 07:03 07:03 RBC 2.94 L (4.63-6.08) M/uL Hgb 8.4 L (14.0-18.0) g/dl Hct 27.5 L (40.1-51.0) % MCHC 30.5 L (32.0-36.0) g/dL RDW Std Deviation 51.7 H (36.4-46.3) fL RDW Coeff of Cheryl 15.0 H (11.5-14.5) % PT 33.9 H (9.0-12.0) Seconds INR 3.4 H (0.9-1.1) BUN 76 H (6-23) mg/dl Creatinine 3.75 H D (0.6-1.4) mg/dl BUN/Creatinine Ratio 20.3 H (10-20)
--- NOTE | 2022-09-16 18:37 | Nephrology Progress Note ---
Date of Service September 16, 2022 Assessment & Plan (1) CHERYL (acute kidney injury): Plan: further improved stage 3 borderline oliguric acute kidney injury due to ischemic ATN in setting of acute blood loss anemia, obligate diuresis. Admission creatinine of 3.6; baseline 1.4; victor manuel 2.1 on 09/06; plateau'd at 3 or 3.1 09/08-09/11 w/ abrupt worsening to peak at 5.4 09/13, further improved today. Second episode of Stage 3 CHERYL / peak creat 4.6 prior to arrival in [place] 06/2022. improving creatinine after holding lasix entirely and fluid resuscitation. UA inflamed but not infected. -lasix on hold and should remain so again today >note that respiratory status worsened at first w/ stopping lasix though resp status stable for past several days; for now we have no alternative to stopping diuretics >> may need to reinvolve pulmonary if worsening respiratory parameters >diuretics back on hold as of 1220 AM; had IVF 09/13 > continue renal diet and reviewed its importance w/ pt > will need reinforcement -for now no fluid limit -Daily BMP and avoid nephrotoxins >> bp and rate control meds on hold; >defer to primary service on pain mgt ->>> again today urged him to move/mobilize fluid/mm as much as possible dialysis will be extremely challenging for this 450 lb patient should he ever need it and really hope we can avoid this Care coordinated w/ Dr Allen Admission and Anticipated Discharge Date Admission Date: August 29, 2022 Subjective no interval events. denies worsened sob; ongoing pain/tenderness/not moving much Review of Systems Review of Systems: All systems reviewed & are unremarkable except as noted in Subjective Physical Exam Constitutional: well developed, well nourished, + obese and cooperative; no acute distress Eyes: EOM intact bilaterally ENMT: Ears: no external ear abnormality Nose: no external nose abnormality Mouth: + dry oral mucous membranes Neck: no nuchal rigidity Respiratory: + labored breathing (slight); no respiratory distress Auscultation: + diminished lung sounds and + rhonchi Cardiovascular: Rate/Rhythm: regular rate, regular rhythm and + tachycardic Extremities: + edema (2+ pedal; trace dep; LUE edema) Gastrointestinal (Abdomen): Inspection/Auscultation: normal bowel sounds Percussion/Palpation: abdomen soft; abdomen nontender Musculoskeletal: Extremities: strength 5/5 throughout and + abnormal strength Skin: no rashes, warm and dry Results & Data ([facility]) Vital Signs (Past 12 Hours) Vital Signs Temp Pulse Pulse Pulse Resp BP Pulse Ox 09/16/22 16:21 37.2 C 97 H 20 111/61 92 09/16/22 08:00 90 09/16/22 08:00 09/16/22 11:49 37.6 C H 96 H 22 104/69 91 09/16/22 07:03 36.6 C 89 18 104/69 94 O2 Del Method O2 Flow Rate 09/16/22 16:21 Nasal Cannula 2 09/16/22 08:00 09/16/22 08:00 Nasal Cannula 2 09/16/22 11:49 Nasal Cannula 2 09/16/22 07:03 BiPAP Laboratory Results 09/16/22 07:03 09/16/22 07:03
[2022-09-17] MEDS: oxyCODONE HCL IR 5 MG TAB (IMMEDIATE RELEASE) PO PRN ×3 (02:47→20:54)
[2022-09-17] MEDS: ACETAMINOPHEN 325 MG TAB PO PRN ×2 (02:47→09:17)
[2022-09-17 07:24] LABS: Hematocrit (blood only) 27.9 % (40.1-51.0); Hemoglobin 8.6 g/dl (14.0-18.0); Mean Corpuscular Hemoglobin 28.9 pg (25.0-34.0); Mean Corpuscular Hgb Conc 30.8 g/dL (32.0-36.0); Mean Corpuscular Volume 93.6 fL (80.0-100.0); Platelet Count 342 K/uL (130-400); RDW Coefficient of Variation 15.3 % (11.5-14.5); Red Blood Count 2.98 M/uL (4.63-6.08); White Blood Count 5.32 K/ul (4.8-10.8)
[2022-09-17 07:47] LABS: BUN Creatinine Ratio 20.2 (10-20); Creatinine Clr Calc Pharmacy 41.8 ml/min; Est GFR (African American) 19.5 ml/min; Est GFR (Non-African American) 16.8 ml/min; Potassium 4.9 mmol/L (3.5-5.1)
[2022-09-17 08:12] LABS: INR 4.2 (0.9-1.1); Prothrombin Time 41.4 Seconds (9.0-12.0)
[2022-09-17] MEDS: DAPTOmycin 800 MG in SYRINGE 0 ML IV SCH (09:18)
[2022-09-17] MEDS: DOCUSATE SODIUM 100 MG CAP PO SCH ×2 (09:19→20:55)
[2022-09-17] MEDS: FOLIC ACID 1 MG TAB PO SCH (09:19)
[2022-09-17] MEDS: ERGOCALCIFEROL 50,000 UNITS 1250 MCG CAP PO SCH (09:19)
[2022-09-17] MEDS: CYANOCOBALAMIN (B-12) 100 MCG TABLET PO SCH (09:19)
[2022-09-17] MEDS: PANTOprazole 40 MG TAB PO SCH ×2 (09:19→20:55)
--- NOTE | 2022-09-17 10:06 | Hospitalist Progress Note ---
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 No recent antibiotic treatment. Patient was increasingly sleepy as per at presentation. Patient with hemoglobin of 5.9 at admission and received 2 units PRBC transfusion in the ED. Of note, patient moved back to [place] from [place] last June 2022, patient had 3 hospital confinements at [place] for kidney failure and hypoxia prior to return to [place] per his . He is being managed for the following: CHERYL over CKD: Patient reported having CHERYL and was hospitalized in [place]. Admitting CT abdomen pelvis with abnormal imaging of kidneys (bilateral kidneys with intermidiate density lesions likley hemorrhagic/proteinaceous cysts US renal: No renal calculi or hydronephrosis or solid renal mass. Bilateral simple and complex renal cyst. Bilateral diffuse cortical thinning with decreased corticomedullary differentiation compatible with chronic medical renal disease. Baseline creatinine of around 1.4 Admitting creatinine of 2.06, peaked at 5.59 Cr is 3.77 today Diuretics still on hold per medicine technologist Supervisor Process Testing on board. Continue to monitor renal function Initial blood cultures on presentation were negative 1 set of blood cultures obtained during a hypotensive episode grew CONS The other sets are negative Repeat blood culture remain negative No fever or leukocytosis This is likely contaminant Stop daptomycin and monitor Metabolic encephalopathy: Multifactorial likely secondary to respiratory failure Possible OHS/untreated RUTH [patient has still to go for a sleep study ] Acute on chronic anemia secondary to lower GI bleed ARF on CKD. 09/08-09/09 nocturnal pulse oximetry with 9 desaturation events, time is spent in desaturation greater than 5 minutes and time spent with saturation less than 89% is 1 hour 28-minute. 09/09 AM ABG with PCO2 of 55. Patient will likely need BiPAP upon discharge. Continue to use BIPAP HS/prn Resp failure w/ hypercapnia; Obesity hypoventilation syndrome: Has evidence of chronic compensated hypercapnic respiratory failure based on ABG. Continue BiPAP when sleeping. Pulmonology evaluated and recommends outpatient BiPAP and follow-up with sleep clinic. Need formal sleep study outpatient Also requiring oxygen during the day. Prefers oxymask sometimes for comfort Acute on chronic anemia Acute blood loss anemia Likely lower GI bleeding Patient presented with complaints of bloody diarrhea Hemoglobin of 5.9 at admission Status post 6 unit PRBC transfusion so far. Iron level low --> s/p iron transfusion x 2. GI evaluated, status post EGD and colonoscopy. 08/31 EGD: No evidence of UGI bleeding, 2 duodenal polyps likely hyperplastic were biopsied with a cold forceps. --> HPE: 2 fragments of polypoid duodenal mucosa with nonspecific duodenitis. Negative for malignancy. 09/01 colonoscopy: The perianal and digital rectal exam were normal. A 10 mm polyp was found in the rectum which was removed with a cold snare and clips [MR conditional] were placed. HPE result is tubular adenoma, negative for high- grade dysplasia. Also diverticulosis in the sigmoid colon were noted. Nonbleeding internal hemorrhoids were noted. Recommendation is to repeat colonoscopy in 5 years for surveillance. Since no evidence of GI bleeding, recommended hematology evaluation. 09/01 peripheral smear: Reviewed FOBT negative, Ferritin > 700. Transfuse hemoglobin if less than 7 or for symptomatic anemia. Last transfusion needed on 09/02/22 Hemoglobin has been stable, Continue with folic acid and vitamin B12. Hematology recommendations noted Repeat Ferritin level on 09/15 626 Continue with p.o. pantoprazole. Continue to monitor Hb Acute DVT: Per patient's , patient has not been mobile since October 2021 He used to be able to walk with cane prior to that. Patient was not on any pharmacological DVT prophylaxis initially because of GI bleed. Patient complained of left arm pain and was scanned for DVT on 09/05/2022 evening which came back positive for DVT in mid to distal left brachial vein. Also now has superficial clot in right UE INR is supratherapeutic at4.2 today. Continue to hold warfarin. Monitor INR, Hb and any signs of bleeding Troponin elevation: Secondary to illness No chest pain Echo obtained with grossly normal LV systolic function without all wall segments able to be visualized. Vitamin D deficiency Vit D level is <7 Started on Vit D 50,000 U weekly Other chronic medical conditions: Ongoing tobacco abuse, HTN, HLD, morbid obesity, gout/rheumatoid arthritis, chronic back pain, medication noncompliance DVT prophylaxis: warfarin Full code Patient's Rima Bowie: [phone]. Disposition: Plan for SNF Palliative eval noted Psych eval noted Continue PT/OT while inpatient Admission and Anticipated Discharge Date Admission Date: August 29, 2022 Subjective Patient seen and examined Patient reports pain in both UE with movement Denied any cough, chest pain, shortness of breath Denied abd pain, nausea, vomiting, diarrhea No fevers or chills Has not been adhering to ordered diet as brings him all kinds of food and drinks per RN Physical Exam Constitutional: + well hydrated and + morbidly obese; no acute distress Eyes: PERRL, conjunctivae normal, anicteric sclerae ENMT: external ear and nose normal, oropharynx normal Respiratory: normal respiratory effort; no respiratory distress Auscultation: + diminished lung sounds Cardiovascular: Rate/Rhythm: regular rate and regular rhythm S1 S2 Gastrointestinal (Abdomen): normal bowel sounds, soft, nontender, no hepatosplenomegaly Musculoskeletal: Pedal edema Edema of both UE Neurologic: PERRL, EOMI, accommodation nl, no face palsy, no dysarthria Psychiatric: A+Ox3, euthymic affect Results & Data Results & Data ([facility]) Vital Signs (Past 12 Hours) Vital Signs Temp Pulse Pulse Resp BP Pulse Ox O2 Del Method 09/17/22 08:00 Nasal Cannula 09/17/22 07:31 94 H 09/16/22 23:15 90 22 93 09/17/22 03:02 94 H 22 91 09/17/22 02:45 36.5 C 94 H 18 101/70 93 BiPAP 09/17/22 02:19 96 H 09/16/22 23:47 37.8 C H 95 H 20 101/68 93 Room Air, BiPAP O2 Flow Rate 09/17/22 08:00 2 09/17/22 07:31 09/16/22 23:15 7 09/17/22 03:02 7 09/17/22 02:45 09/17/22 02:19 09/16/22 23:47 Laboratory Results Abnormal lab results 09/16/22 09/17/22 09/17/22 Range/Units 12:39 06:41 06:41 RBC 2.98 L (4.63-6.08) M/uL Hgb 8.6 L (14.0-18.0) g/dl Hct 27.9 L (40.1-51.0) % MCHC 30.8 L (32.0-36.0) g/dL RDW Std Deviation 53.0 H (36.4-46.3) fL RDW Coeff of Cheryl 15.3 H (11.5-14.5) % PT 41.4 H (9.0-12.0) Seconds INR 4.2 H (0.9-1.1) Sodium (136-145) mmol/L Chloride (98-107) mmol/L BUN (6-23) mg/dl Creatinine (0.6-1.4) mg/dl BUN/Creatinine Ratio (10-20) 25-OH Vitamin D Total < 7.0 L (30-100) ng/ml 09/17/22 Range/Units 06:41 RBC (4.63-6.08) M/uL Hgb (14.0-18.0) g/dl Hct (40.1-51.0) % MCHC (32.0-36.0) g/dL RDW Std Deviation (36.4-46.3) fL RDW Coeff of Cheryl (11.5-14.5) % PT (9.0-12.0) Seconds INR (0.9-1.1) Sodium 134 L (136-145) mmol/L Chloride 97 L (98-107) mmol/L BUN 76 H (6-23) mg/dl Creatinine 3.77 H (0.6-1.4) mg/dl BUN/Creatinine Ratio 20.2 H (10-20) 25-OH Vitamin D Total (30-100) ng/ml
[2022-09-18 07:38] LABS: Hematocrit (blood only) 27.8 % (40.1-51.0); Hemoglobin 8.6 g/dl (14.0-18.0); Mean Corpuscular Hemoglobin 28.4 pg (25.0-34.0); Mean Corpuscular Hgb Conc 30.9 g/dL (32.0-36.0); Mean Corpuscular Volume 91.7 fL (80.0-100.0); Mean Platelet Volume 9.7 fL (9.4-12.4); Platelet Count 394 K/uL (130-400); RDW Coefficient of Variation 14.6 % (11.5-14.5); RDW Standard Deviation 49.4 fL (36.4-46.3); Red Blood Count 3.03 M/uL (4.63-6.08); White Blood Count 6.39 K/ul (4.8-10.8)
[2022-09-18 07:58] LABS: BUN Creatinine Ratio 20.5 (10-20); Creatinine Clr Calc Pharmacy 40.4 ml/min; Est GFR (African American) 18.7 ml/min; Est GFR (Non-African American) 16.2 ml/min; Potassium 4.7 mmol/L (3.5-5.1)
[2022-09-18] MEDS: oxyCODONE HCL IR 5 MG TAB (IMMEDIATE RELEASE) PO PRN ×2 (08:11→16:38)
[2022-09-18] MEDS: DOCUSATE SODIUM 100 MG CAP PO SCH ×2 (08:12→20:16)
[2022-09-18] MEDS: FOLIC ACID 1 MG TAB PO SCH (08:12)
[2022-09-18] MEDS: PANTOprazole 40 MG TAB PO SCH ×2 (08:12→20:17)
[2022-09-18] MEDS: ACETAMINOPHEN 325 MG TAB PO PRN ×2 (08:12→16:38)
[2022-09-18] MEDS: CYANOCOBALAMIN (B-12) 100 MCG TABLET PO SCH (08:12)
[2022-09-18 08:30] LABS: INR 4.8 (0.9-1.1); Prothrombin Time 47.2 Seconds (9.0-12.0)
--- NOTE | 2022-09-18 10:31 | Hospitalist Progress Note ---
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 No recent antibiotic treatment. Patient was increasingly sleepy as per at presentation. Patient with hemoglobin of 5.9 at admission and received 2 units PRBC transfusion in the ED. Of note, patient moved back to [place] from [place] last June 2022, patient had 3 hospital confinements at [place] for kidney failure and hypoxia prior to return to [place] per his . He is being managed for the following: CHERYL over CKD: Patient reported having CHERYL and was hospitalized in [place]. Admitting CT abdomen pelvis with abnormal imaging of kidneys (bilateral kidneys with intermidiate density lesions likley hemorrhagic/proteinaceous cysts US renal: No renal calculi or hydronephrosis or solid renal mass. Bilateral simple and complex renal cyst. Bilateral diffuse cortical thinning with decreased corticomedullary differentiation compatible with chronic medical renal disease. Baseline creatinine of around 1.4 Admitting creatinine of 2.06, peaked at 5.59 Cr is 3.9 today Renal function may have plateaued Diuretics still on hold per highway maintainer Mold Setter on board. Continue to monitor renal function Initial blood cultures on presentation were negative 1 set of blood cultures obtained during a hypotensive episode grew CONS The other sets are negative Repeat blood culture remain negative No fever or leukocytosis This is likely contaminant Empirical daptomycin discontinued Metabolic encephalopathy: Multifactorial likely secondary to respiratory failure Possible OHS/untreated RUTH [patient has still to go for a sleep study ] Acute on chronic anemia secondary to lower GI bleed ARF on CKD. 09/08-09/09 nocturnal pulse oximetry with 9 desaturation events, time is spent in desaturation greater than 5 minutes and time spent with saturation less than 89% is 1 hour 28-minute. 09/09 AM ABG with PCO2 of 55. Patient will likely need BiPAP upon discharge. Continue to use BIPAP HS/prn Resp failure w/ hypercapnia; Obesity hypoventilation syndrome: Has evidence of chronic compensated hypercapnic respiratory failure based on ABG. Continue BiPAP when sleeping. Pulmonology evaluated and recommends outpatient BiPAP and follow-up with sleep clinic. Need formal sleep study outpatient Also requiring oxygen during the day. Prefers oxymask sometimes for comfort Acute on chronic anemia Acute blood loss anemia Likely lower GI bleeding Patient presented with complaints of bloody diarrhea Hemoglobin of 5.9 at admission Status post 6 unit PRBC transfusion so far. Iron level low --> s/p iron transfusion x 2. GI evaluated, status post EGD and colonoscopy. 08/31 EGD: No evidence of UGI bleeding, 2 duodenal polyps likely hyperplastic were biopsied with a cold forceps. --> HPE: 2 fragments of polypoid duodenal mucosa with nonspecific duodenitis. Negative for malignancy. 09/01 colonoscopy: The perianal and digital rectal exam were normal. A 10 mm polyp was found in the rectum which was removed with a cold snare and clips [MR conditional] were placed. HPE result is tubular adenoma, negative for high- grade dysplasia. Also diverticulosis in the sigmoid colon were noted. Nonbleeding internal hemorrhoids were noted. Recommendation is to repeat colonoscopy in 5 years for surveillance. Since no evidence of GI bleeding, recommended hematology evaluation. 09/01 peripheral smear: Reviewed FOBT negative, Ferritin > 700. Transfuse hemoglobin if less than 7 or for symptomatic anemia. Last transfusion needed on 09/02/22 Hemoglobin has been stable so far Continue with folic acid and vitamin B12. Hematology recommendations noted Repeat Ferritin level on 09/15 626 Continue with p.o. pantoprazole. Continue to monitor Hb Acute DVT: Per patient's , patient has not been mobile since October 2021 He used to be able to walk with cane prior to that. Patient was not on any pharmacological DVT prophylaxis initially because of GI bleed. Patient complained of left arm pain and was scanned for DVT on 09/05/2022 evening which came back positive for DVT in mid to distal left brachial vein. Also now has superficial clot in right UE INR remains supratherapeutic at 4.8 today. Continue to hold warfarin. Monitor INR, Hb and any signs of bleeding When INR gets therapeutic, resume at lower dose Troponin elevation: Secondary to illness No chest pain Echo obtained with grossly normal LV systolic function without all wall segments able to be visualized. Vitamin D deficiency Vit D level is <7 Started on Vit D 50,000 U weekly on 09/17/22 Other chronic medical conditions: Ongoing tobacco abuse, HTN, HLD, morbid obesity, gout/rheumatoid arthritis, chronic back pain, medication noncompliance DVT prophylaxis: warfarin Full code Patient's Rima Bowie: [phone]. Disposition:CM to work on placement Palliative eval noted Psych eval noted Continue PT/OT while inpatient Admission and Anticipated Discharge Date Admission Date: August 29, 2022 Subjective Patient seen and examined Patient reports very mild improvement in the past in his hands Denied any cough, chest pain, shortness of breath Denied abd pain, nausea, vomiting, diarrhea No fevers or chills Denied hematuria, hematochezia Physical Exam Constitutional: + well hydrated and + morbidly obese; no acute distress Eyes: PERRL, conjunctivae normal, anicteric sclerae ENMT: external ear and nose normal, oropharynx normal Respiratory: normal respiratory effort; no respiratory distress Auscultation: + diminished lung sounds Cardiovascular: Rate/Rhythm: regular rate and regular rhythm S1 S2 Gastrointestinal (Abdomen): normal bowel sounds, soft, nontender, no hepa tosplenomegaly Musculoskeletal: Edema of extremities (UE/LE) Neurologic: PERRL, EOMI, accommodation nl, no face palsy, no dysarthria Psychiatric: A+Ox3, euthymic affect Results & Data Results & Data ([facility]) Vital Signs (Past 12 Hours) Vital Signs Temp Pulse Pulse Pulse Resp BP Pulse Ox 09/18/22 07:24 101 H 09/18/22 07:03 37.0 C 99 H 22 123/97 91 09/18/22 05:46 100 H 18 91 09/18/22 03:17 36.7 C 99 H 18 133/89 95 09/18/22 03:00 96 H 09/18/22 02:37 100 H 16 94 09/17/22 23:36 99 H 22 96 09/17/22 23:01 36.4 C L 100 H 19 131/92 100 O2 Del Method O2 Flow Rate 09/18/22 07:24 09/18/22 07:03 BiPAP 09/18/22 05:46 5 09/18/22 03:17 Room Air 09/18/22 03:00 09/18/22 02:37 5 09/17/22 23:36 4 09/17/22 23:01 Nasal Cannula 2 Laboratory Results Abnormal lab results 09/18/22 09/18/22 09/18/22 Range/Units 07:23 07:23 07:23 RBC 3.03 L (4.63-6.08) M/uL Hgb 8.6 L (14.0-18.0) g/dl Hct 27.8 L (40.1-51.0) % MCHC 30.9 L (32.0-36.0) g/dL RDW Std Deviation 49.4 H (36.4-46.3) fL RDW Coeff of Cheryl 14.6 H (11.5-14.5) % PT 47.2 H (9.0-12.0) Seconds INR 4.8 H (0.9-1.1) Sodium 132 L (136-145) mmol/L Chloride 95 L (98-107) mmol/L BUN 80 H (6-23) mg/dl Creatinine 3.90 H (0.6-1.4) mg/dl BUN/Creatinine Ratio 20.5 H (10-20)
[2022-09-18] MEDS ORDERED: WARFARIN SOD 4 MG TAB PO SCH (16:00)
[2022-09-19 08:11] LABS: Hematocrit (blood only) 27.1 % (40.1-51.0); Hemoglobin 8.4 g/dl (14.0-18.0); Mean Corpuscular Hemoglobin 28.8 pg (25.0-34.0); Mean Corpuscular Volume 92.8 fL (80.0-100.0); Mean Platelet Volume 9.8 fL (9.4-12.4); Platelet Count 409 K/uL (130-400); RDW Standard Deviation 51.2 fL (36.4-46.3); Red Blood Count 2.92 M/uL (4.63-6.08); White Blood Count 5.04 K/ul (4.8-10.8)
[2022-09-19] MEDS: DOCUSATE SODIUM 100 MG CAP PO SCH ×2 (08:21→20:32)
[2022-09-19] MEDS: FOLIC ACID 1 MG TAB PO SCH (08:21)
[2022-09-19] MEDS: PANTOprazole 40 MG TAB PO SCH ×2 (08:21→20:32)
[2022-09-19] MEDS: CYANOCOBALAMIN (B-12) 100 MCG TABLET PO SCH (08:21)
[2022-09-19] MEDS: oxyCODONE HCL IR 5 MG TAB (IMMEDIATE RELEASE) PO PRN (08:22)
[2022-09-19] MEDS: ACETAMINOPHEN 325 MG TAB PO PRN (08:23)
[2022-09-19 08:34] LABS: BUN Creatinine Ratio 21.1 (10-20); Calcium 9.3 mg/dl (8.5-10.1); Creatinine Clr Calc Pharmacy 44.2 ml/min; Est GFR (Non-African American) 18.1 ml/min; INR 4.7 (0.9-1.1); Potassium 4.3 mmol/L (3.5-5.1); Prothrombin Time 45.8 Seconds (9.0-12.0)
--- NOTE | 2022-09-19 10:52 | Hospitalist Progress Note ---
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 No recent antibiotic treatment. Patient was increasingly sleepy as per at presentation. Patient with hemoglobin of 5.9 at admission and received 2 units PRBC transfusion in the ED. Of note, [place], patient had 3 hospital confinements at [place] for kidney failure and hypoxia prior to return to [place] per his . He is being managed for the following: CHERYL over CKD: Patient reported having CHERYL and was hospitalized in [place]. Admitting CT abdomen pelvis with abnormal imaging of kidneys (bilateral kidneys with intermidiate density lesions likley hemorrhagic/proteinaceous cysts US renal: No renal calculi or hydronephrosis or solid renal mass. Bilateral simple and complex renal cyst. Bilateral diffuse cortical thinning with decreased corticomedullary differentiation compatible with chronic medical renal disease. Baseline creatinine of around 1.4 Admitting creatinine of 2.06, peaked at 5.59 Cr is 3.55 today Renal function may have plateaued Diuretics still on hold per director of district office Marketing Recruiter on board. Continue to monitor renal function Initial blood cultures on presentation were negative 1 set of blood cultures obtained during a hypotensive episode grew CONS The other sets are negative Repeat blood culture remain negative No fever or leukocytosis This is likely contaminant Empirical daptomycin discontinued Metabolic encephalopathy: Multifactorial likely secondary to respiratory failure Possible OHS/untreated RUTH [patient has still to go for a sleep study ] Acute on chronic anemia secondary to lower GI bleed ARF on CKD. 09/08-09/09 nocturnal pulse oximetry with 9 desaturation events, time is spent in desaturation greater than 5 minutes and time spent with saturation less than 89% is 1 hour 28-minute. 09/09 AM ABG with PCO2 of 55. Patient will likely need BiPAP upon discharge. He gets drowsy and confused when he refuses BIPAP. Placed back on BIPAP this morning Will continue to educate patient on need for this Reassess later Resp failure w/ hypercapnia; Obesity hypoventilation syndrome: Has evidence of chronic compensated hypercapnic respiratory failure based on ABG. Continue BiPAP when sleeping. Pulmonology evaluated and recommends outpatient BiPAP and follow-up with sleep clinic. Need formal sleep study outpatient Also requiring oxygen during the day. Prefers oxymask sometimes for comfort Acute on chronic anemia Acute blood loss anemia Likely lower GI bleeding Patient presented with complaints of bloody diarrhea Hemoglobin of 5.9 at admission Status post 6 unit PRBC transfusion so far. Iron level low --> s/p iron transfusion x 2. GI evaluated, status post EGD and colonoscopy. 08/31 EGD: No evidence of UGI bleeding, 2 duodenal polyps likely hyperplastic were biopsied with a cold forceps. --> HPE: 2 fragments of polypoid duodenal mucosa with nonspecific duodenitis. Negative for malignancy. 09/01 colonoscopy: The perianal and digital rectal exam were normal. A 10 mm polyp was found in the rectum which was removed with a cold snare and clips [MR conditional] were placed. HPE result is tubular adenoma, negative for high- grade dysplasia. Also diverticulosis in the sigmoid colon were noted. Nonbleeding internal hemorrhoids were noted. Recommendation is to repeat colonoscopy in 5 years for surveillance. Since no evidence of GI bleeding, recommended hematology evaluation. 09/01 peripheral smear: Reviewed FOBT negative, Ferritin > 700. Transfuse hemoglobin if less than 7 or for symptomatic anemia. Last transfusion needed on 09/02/22 Hemoglobin has been stable so far Continue with folic acid and vitamin B12. Hematology recommendations noted Repeat Ferritin level on 09/15 626 Continue with p.o. pantoprazole. Continue to monitor Hb Acute DVT: Per patient's , patient has not been mobile since October 2021 He used to be able to walk with cane prior to that. Patient was not on any pharmacological DVT prophylaxis initially because of GI bleed. Patient complained of left arm pain and was scanned for DVT on 09/05/2022 evening which came back positive for DVT in mid to distal left brachial vein. Also now has superficial clot in right UE INR remains supratherapeutic at 4.7 today. Continue to hold warfarin. Monitor INR, Hb and any signs of bleeding When INR gets therapeutic, resume at lower dose Troponin elevation: Secondary to illness No chest pain Echo obtained with grossly normal LV systolic function without all wall segments able to be visualized. Vitamin D deficiency Vit D level is <7 Started on Vit D 50,000 U weekly on 09/17/22 Other chronic medical conditions: Ongoing tobacco abuse, HTN, HLD, morbid obesity, gout/rheumatoid arthritis, chronic back pain, medication noncompliance DVT prophylaxis: warfarin Full code Patient's Rima Bowie: [phone]. Disposition:CM to work on placement Palliative eval noted Psych eval noted Continue PT/OT while inpatient Admission and Anticipated Discharge Date Admission Date: August 29, 2022 Subjective Patient seen and examined He is drowsy but arousable this morning Oriented to person and confused about which hospital he is in RN reported he had refused his BIPAP overnight He denied any new complaints except for weakness and pain in UE with movement ROS is limited due to somnolence/confusion Physical Exam Constitutional: + well hydrated and + morbidly obese; no acute distress Eyes: PERRL, conjunctivae normal, anicteric sclerae ENMT: external ear and nose normal, oropharynx normal Respiratory: normal respiratory effort; no respiratory distress Auscultation: + diminished lung sounds Cardiovascular: Rate/Rhythm: regular rate and regular rhythm S1 S2 Gastrointestinal (Abdomen): normal bowel sounds, soft, nontender, no hepatosplenomegaly Musculoskeletal: Edema in all extremities Neurologic: PERRL, EOMI, accommodation nl, no face palsy, no dysarthria Psychiatric: Drowsy but arousable Oriented to person, knows he is the hospital but confused which hospital he is in Results & Data Results & Data ([facility]) Vital Signs (Past 12 Hours) Vital Signs Temp Pulse Pulse Resp BP Pulse Ox O2 Del Method 09/19/22 10:16 94 H 20 93 09/19/22 07:56 36.6 C 99 H 20 111/81 95 Nasal Cannula 09/19/22 07:18 100 H 09/19/22 03:10 12 96 09/19/22 02:55 36.8 C 99 H 18 105/78 89 L Nasal Cannula 09/19/22 00:09 93 H 09/18/22 23:42 65 13 97 O2 Flow Rate 09/19/22 10:16 09/19/22 07:56 2.0 09/19/22 07:18 09/19/22 03:10 09/19/22 02:55 2 09/19/22 00:09 09/18/22 23:42 Laboratory Results Abnormal lab results 09/19/22 09/19/22 09/19/22 Range/Units 07:37 07:37 07:37 RBC 2.92 L (4.63-6.08) M/uL Hgb 8.4 L (14.0-18.0) g/dl Hct 27.1 L (40.1-51.0) % MCHC 31.0 L (32.0-36.0) g/dL RDW Std Deviation 51.2 H (36.4-46.3) fL RDW Coeff of Cheryl 15.0 H (11.5-14.5) % Plt Count 409 H (130-400) K/uL PT 45.8 H (9.0-12.0) Seconds INR 4.7 H (0.9-1.1) Sodium 135 L (136-145) mmol/L Chloride 97 L (98-107) mmol/L BUN 75 H (6-23) mg/dl Creatinine 3.55 H D (0.6-1.4) mg/dl BUN/Creatinine Ratio 21.1 H (10-20)
--- NOTE | 2022-09-19 20:01 | Nephrology Progress Note ---
Date of Service September 19, 2022 Assessment & Plan (1) CHERYL (acute kidney injury): Plan: further improved borderline oliguric acute kidney injury due to ischemic ATN in setting of acute blood loss anemia, obligate diuresis. Admission creatinine of 3.6; reported baseline 1.4 though truthfully no clear baseline in this pt who came to [facility] in June; victor manuel 2.1 on 09/06 at admission and this may be baseline; plateau'd at 3 or 3.1 09/08-09/11 w/ abrupt worsening to peak at 5.4 09/13, further improved today. Second episode of significant CHERYL / peak creat 4.6 prior to arrival in [place] 06/2022. improving creatinine after holding lasix entirely and fluid resuscitation. UA inflamed but not infected. -lasix on hold and should remain so again today >note that respiratory status worsened at first w/ stopping lasix though resp status stable for past several days; for now we have no alternative to stopping diuretics >> may need to reinvolve pulmonary if worsening respiratory parameters > continue renal diet and reviewed its importance w/ pt > will need [facility] -for now no fluid limit -Daily BMP and avoid nephrotoxins >> bp and rate control meds on hold; >defer to primary service on pain mgt ->>> again today urged him to move/mobilize fluid/mm as much as possible dialysis will be extremely challenging for this 450 lb patient should he ever need it and really hope we can avoid this Care coordinated w/ Dr Allen. Will follow peripherally. Admission and Anticipated Discharge Date Admission Date: August 29, 2022 Subjective no interval events. needs to be fed now. denies sob; edema/pain unchanged Review of Systems Review of Systems: All systems reviewed & are unremarkable except as noted in Subjective Physical Exam Constitutional: well developed, well nourished, + obese and cooperative; no acute distress Eyes: EOM intact bilaterally ENMT: Ears: no external ear abnormality Nose: no external nose abnormality Mouth: + dry oral mucous membranes Neck: no nuchal rigidity Respiratory: + labored breathing (slight); no respiratory distress Auscultation: lungs clear to auscultation bilaterally and + diminished lung sounds Cardiovascular: Rate/Rhythm: regular rate, regular rhythm and + tachycardic Extremities: + edema (3+ pedal; trace dep; LUE edema) Gastrointestinal (Abdomen): Inspection/Auscultation: normal bowel sounds Percussion/Palpation: abdomen soft; abdomen nontender Musculoskeletal: Extremities: strength 5/5 throughout and + abnormal strength Skin: no rashes, warm and dry Psychiatric: Orientation: oriented x 3 Speech: normal rate/rhythm/volume of speech Genitourinary: foloey w/ ample yellow urine Results & Data ([facility]) Vital Signs (Past 12 Hours) Vital Signs Temp Pulse Pulse Resp BP Pulse Ox O2 Del Method 09/19/22 19:17 36.4 C L 98 H 20 130/85 94 Nasal Cannula 09/19/22 16:08 94 H 09/19/22 15:26 36.5 C 92 H 20 106/84 93 Nasal Cannula 09/19/22 12:12 37.0 C 91 H 21 166/86 H 94 BiPAP 09/19/22 08:00 Nasal Cannula 09/19/22 10:16 94 H 20 93 O2 Flow Rate 09/19/22 19:17 09/19/22 16:08 09/19/22 15:26 2.0 09/19/22 12:12 09/19/22 08:00 2 09/19/22 10:16 Laboratory Results 09/19/22 07:37 09/19/22 07:37
[2022-09-20 07:53] LABS: INR 4.3 (0.9-1.1); Prothrombin Time 42.4 Seconds (9.0-12.0)
[2022-09-20] MEDS: FOLIC ACID 1 MG TAB PO SCH (08:26)
[2022-09-20] MEDS: CYANOCOBALAMIN (B-12) 100 MCG TABLET PO SCH (08:26)
[2022-09-20] MEDS: PANTOprazole 40 MG TAB PO SCH ×2 (08:26→21:53)
[2022-09-20] MEDS: DOCUSATE SODIUM 100 MG CAP PO SCH ×2 (08:27→21:53)
[2022-09-20] MEDS: carvediloL 6.25 MG TAB PO SCH ×2 (11:04→21:53)
--- NOTE | 2022-09-20 14:54 | Nephrology Progress Note ---
Date of Service September 20, 2022 Assessment & Plan Admission and Anticipated Discharge Date Admission Date: August 29, 2022 Subjective Assessment & Plan (1) CHERYL (acute kidney injury): Plan: further improved borderline oliguric acute kidney injury due to ischemic ATN in setting of acute blood loss anemia, obligate diuresis. Admission creatinine of 3.6; reported baseline 1.4 though truthfully no clear baseline in this pt who came to located within [facility] in June; victor manuel 2.1 on 09/06 at admission and this may be baseline; plateau'd at 3 or 3.1 09/08-09/11 w/ abrupt worsening to peak at 5.4 09/13, further improved today. Second episode of significant CHERYL / peak creat 4.6 prior to arrival in [place] 06/2022. improving creatinine after holding lasix entirely and fluid resuscitation. UA inflamed but not infected. lasix on hold for now and also no iv fluids. C reat trending down very slowly Given Severe Chronic Hypoxia he does seem very susceptible to Intermittent CHERYL. for now no fluid limit Daily BMP and avoid nephrotoxins Subjective no interval events. needs to be fed now. made 1250 ml urine. denies sob; edema/pain unchanged Review of Systems Review of Systems: All systems reviewed & are unremarkable except as noted in Subjective Physical Exam Constitutional: well developed, well nourished, + obese and cooperative; no acute distress Eyes: EOM intact bilaterally ENMT: Ears: no external ear abnormality Nose: no external nose abnormality Mouth: + dry oral mucous membranes Neck: no nuchal rigidity Respiratory: + labored breathing (slight); no respira tory distress Auscultation: lungs clear to auscultation bilaterally and + diminished lung sounds Cardiovascular: Rate/Rhythm: regular rate, regular rhythm and + tachycardic Extremities: + edema (3+ pedal; trace dep; LUE edema) Gastrointestinal (Abdomen): Inspection/Auscultation: normal bowel sounds Percussion/Palpation: abdomen soft; abdomen nontender Musculoskeletal: Extremities: strength 5/5 throughout and + abnormal strength Skin: no rashes, warm and dry Psychiatric: Orientation: oriented x 3 Speech: normal rate/rhythm/volume of speech Genitourinary: foloey w/ ample yellow urine Results & Data ([facility]) Vital Signs (Past 12 Hours) Vital Signs Temp Pulse Pulse Pulse Pulse Resp BP 09/20/22 14:47 37.1 C 93 H 22 130/80 09/20/22 14:16 90 19 09/20/22 12:29 92 H 19 09/20/22 11:52 36.8 C 96 H 20 114/69 09/20/22 09:00 09/20/22 08:00 105 H 20 126/88 09/20/22 07:00 102 H 09/20/22 03:03 36.5 C 113 H 18 124/81 Pulse Ox O2 Del Method O2 Flow Rate 09/20/22 14:47 97 CPAP 09/20/22 14:16 95 5 09/20/22 12:29 92 5 09/20/22 11:52 93 Nasal Cannula 2.0 09/20/22 09:00 Nasal Cannula 2 09/20/22 08:00 94 Nasal Cannula 2 09/20/22 07:00 09/20/22 03:03 91 Nasal Cannula
--- NOTE | 2022-09-20 15:32 | Hospitalist Progress Note ---
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 No recent antibiotic treatment. Patient was increasingly sleepy as per at presentation. Patient with hemoglobin of 5.9 at admission and received 2 units PRBC transfusion in the ED. Of note, patient moved back to [place] from [place] last June 2022, patient had 3 hospital confinements at [place] for kidney failure and hypoxia prior to return to [place] per his . CHERYL over CKD: --CT Abd:Abnormal imaging of kidneys (bilateral kidneys with intermediate density lesions likely hemorrhagic/proteinaceous cysts --Renal USD: No renal calculi or hydronephrosis or solid renal mass. Bilateral simple and complex renal cyst. Bilateral diffuse cortical thinning with decreased corticomedullary differentiation compatible with chronic medical renal disease. --Baseline creatinine of around 1.4 reported --Cr slowly improving --Cr is 3.55 today Diuretics on hold Appreciate Nephrology Input Monitor renal function Avoid nephrotoxic agents as able Metabolic encephalopathy: Multifactorial likely secondary to respiratory failure/hypercarbia Possible OHS/untreated RUTH Nocturnal hypoxia Chronic resp failure w/ hypercapnia and Hypoxia 09/08-09/09 Nocturnal pulse oximetry with 9 desaturation events, time is spent in desaturation greater than 5 minutes and time spent with saturation less than 89% is 1 hour 28-minute. 09/09 AM ABG with PCO2 of 55. Needs BiPAP upon discharge. Noncompliant with BiPAP use intermittently Appreciate pulmonology input Needs sleep study as outpatient Continue BiPAP while sleeping and at bedtime Acute on chronic anemia secondary to lower GI bleed Acute blood loss anemia Hb 5.9 on admission S/P 6 unit PRBC transfusion Iron level low --> s/p iron transfusion x 2. GI evaluated, status post EGD and colonoscopy. --08/31 EGD: No evidence of UGI bleeding, 2 duodenal polyps likely hyperplastic were biopsied with a cold forceps. --> HPE: 2 fragments of polypoid duodenal mucosa with nonspecific duodenitis. Negative for malignancy. --09/01 colonoscopy: The perianal and digital rectal exam were normal. A 10 mm polyp was found in the rectum which was removed with a cold snare and clips [MR conditional] were placed. HPE result is tubular adenoma, negative for high- grade dysplasia. Also diverticulosis in the sigmoid colon were noted. Nonbleeding internal hemorrhoids were noted. Recommendation is to repeat colonoscopy in 5 years for surveillance. Since no evidence of GI bleeding, recommended hematology evaluation. --09/01 peripheral smear: Reviewed FOBT negative, Ferritin > 700. Transfuse hemoglobin if less than 7 or for symptomatic anemia. Last transfusion on 09/02/22 Continue with folic acid and vitamin B12. Appreciate Hematology Input Repeat Ferritin level on 09/15 626 Continue pantoprazole. Monitor CBC Acute DVT: Per patient's , patient has not been mobile since October 2021 He used to be able to walk with cane prior to that. Patient was not on any pharmacological DVT prophylaxis initially because of GI bleed. Patient complained of left arm pain and was scanned for DVT on 09/05/2022 evening which came back positive for DVT in mid to distal left brachial vein. Also now has superficial clot in right UE INR remains supratherapeutic at 4.7>>4.3 Monitor INR Hold Coumadin for now Troponin elevation: Secondary to CHERYL Echo: Grossly normal LV chamber size. Grossly normal LV systolic function without all wall segments able to be visualized. Denies chest pain Vitamin D deficiency Vit D level is <7 Started on Vit D 50,000 U weekly on 09/17/22 Other chronic medical conditions: Ongoing tobacco abuse, HTN, HLD, morbid obesity, gout/rheumatoid arthritis, chronic back pain, medication noncompliance DVT Px: Warfarin held INR supratherapeutic Code Status Full code Admission and Anticipated Discharge Date Admission Date: August 29, 2022 Subjective Patient is seen and examined at bedside States having generalized body ache Intermittently refusing BiPAP Denies any chest pain, dyspnea, dizziness, nausea Creatinine slowly improving Review of Systems Review of Systems: All systems reviewed & are unremarkable except as noted in Subjective Physical Exam Physical Exam: Physical Exam: Vitals signs as noted above General Appearance:Morbidly obese, no apparent distress Head: normocephalic, Atraumatic Eyes: normal inspection, EOMI Neck: supple, Trachea midline Respiratory/Chest: Normal breath sounds, CTA, No accessory muscle use Cardiovascular: S1, S2, No murmur Abdomen/GI:Soft, Non tender, Bowel sounds present Extremities/Musculoskeletal:normal inspection, 1-2 + edema Neurologic/Psych:AAOX3, grossly no focal neurological deficits Skin: normal color, warm Results & Data Results & Data ([facility]) Vital Signs (Past 12 Hours) Vital Signs Temp Pulse Pulse Pulse Pulse Resp BP 09/20/22 14:47 37.1 C 93 H 22 130/80 09/20/22 14:16 90 19 09/20/22 12:29 92 H 19 09/20/22 11:52 36.8 C 96 H 20 114/69 09/20/22 09:00 09/20/22 08:00 105 H 20 126/88 09/20/22 07:00 102 H Pulse Ox O2 Del Method O2 Flow Rate 09/20/22 14:47 97 CPAP 09/20/22 14:16 95 5 09/20/22 12:29 92 5 09/20/22 11:52 93 Nasal Cannula 2.0 09/20/22 09:00 Nasal Cannula 2 09/20/22 08:00 94 Nasal Cannula 2 09/20/22 07:00
[2022-09-21 07:51] LABS: INR 3.7 (0.9-1.1); Prothrombin Time 36.5 Seconds (9.0-12.0)
[2022-09-21 07:52] LABS: BUN Creatinine Ratio 25.1 (10-20); Calcium 9.6 mg/dl (8.5-10.1); Creatinine Clr Calc Pharmacy 57.1 ml/min; Est GFR (African American) 28.6 ml/min; Est GFR (Non-African American) 24.7 ml/min; Potassium 3.9 mmol/L (3.5-5.1)
[2022-09-21] MEDS: DOCUSATE SODIUM 100 MG CAP PO SCH ×2 (08:55→21:07)
[2022-09-21] MEDS: FOLIC ACID 1 MG TAB PO SCH (08:55)
[2022-09-21] MEDS: PANTOprazole 40 MG TAB PO SCH ×2 (08:55→21:07)
[2022-09-21] MEDS: CYANOCOBALAMIN (B-12) 100 MCG TABLET PO SCH (08:55)
[2022-09-21] MEDS: carvediloL 12.5 MG TAB PO SCH ×2 (10:42→21:08)
--- NOTE | 2022-09-21 11:15 | Palliative Care Progress Note ---
Date of Service September 21, 2022 Assessment & Plan (1) Palliative care encounter: Plan: I spoke with Mr. Bowie about our prior conversation regarding his goals for care. He confirms that he would want full code and any interventions necessary to prolong his life. We talked about his goal for the future, which he describes as getting PT, going home and "moving on". I asked him if there was anything that he would not be willing to go through to achieve that goal. He indicated that he would not be willing to go through a lot of pain but would otherwise not see any limitations. I asked him if he felt that this was a realistic goal and he indicated that he thought it was. With established goals of care, will sign of for now. Please call if we can be of further assistance. Admission and Anticipated Discharge Date Admission Date: August 29, 2022 Subjective Awake, alert. Denies pain currently Review of Systems Review of Systems: ESAS Pain 0/3 Dyspnea 0/3 Drowsiness 0/3 Fatigue 3/3 pps 30% Physical Exam Constitutional: no acute distress ENMT: Mouth: oral mucous membranes not dry Respiratory: normal respiratory effort; no labored breathing Gastrointestinal (Abdomen): Inspection/Auscultation: + significant pannus Neurologic: awake; not confused Results & Data ([facility]) Vital Signs (Past 12 Hours) Vital Signs Temp Pulse Pulse Pulse Resp BP Pulse Ox 09/21/22 07:23 98.2 F 92 H 21 152/96 H 98 09/21/22 07:00 89 09/21/22 05:03 90 20 91 09/21/22 04:03 98.8 F 89 20 149/84 H 90 09/20/22 23:45 96 H 16 92 O2 Del Method O2 Flow Rate 09/21/22 07:23 Nasal Cannula 2 09/21/22 07:00 09/21/22 05:03 4 09/21/22 04:03 CPAP 09/20/22 23:45 3 PG Care Time/CCT Total # of Minutes Spent Total Time Spent with Patient: Total time spent is greater than 50% in coordination of care (as documented) at patient's floor/unit and/or counseling patient: Coding Level of Care Code 85155 Subseq Hosp Care Lvl 2 Diagnoses Palliative care encounter Z51.5
--- NOTE | 2022-09-21 13:20 | Nephrology Progress Note ---
Date of Service September 21, 2022 Assessment & Plan Admission and Anticipated Discharge Date Admission Date: August 29, 2022 Subjective Assessment & Plan (1) CHERYL (acute kidney injury): Plan: further improved borderline oliguric acute kidney injury due to ischemic ATN in setting of acute blood loss anemia, obligate diuresis. Admission creatinine of 3.6; reported baseline 1.4 though truthfully no clear baseline in this pt who came to [facility] in June; victor manuel 2.1 on 09/06 at admission and this may be baseline; plateau'd at 3 or 3.1 09/08-09/11 w/ abrupt worsening to peak at 5.4 09/13, further improved today. Second episode of significant CHERYL / peak creat 4.6 prior to arrival in [place] 06/2022. improving creatinine after holding lasix entirely and fluid resuscitation. UA inflamed but not infected. lasix has been on hold for awhile now but has massive edema. So lasix 40 iv bid Creat trending down slowly Given Severe Chronic Hypoxia he does seem very susceptible to Intermittent CHERYL. for now no fluid limit Daily BMP and avoid nephrotoxins Subjective no interval events. needs to be fed now. made 1250 ml urine. denies sob; edema/pain unchanged Review of Systems Review of Systems: All systems reviewed & are unremarkable except as noted in Subjective Physical Exam Constitutional: well developed, well nourished, + obese and cooperative; no acute distress Eyes: EOM intact bilaterally ENMT: Ears: no external ear abnormality Nose: no external nose abnormality Mouth: + dry oral mucous membranes Neck: no nuchal rigidity Respiratory: + labored breathing (slight); no respira tory distress Auscultation: lungs clear to auscultation bilaterally and + diminished lung sounds Cardiovascular: Rate/Rhythm: regular rate, regular rhythm and + tachycardic Extremities: + edema (3+ pedal; trace dep; LUE edema) Gastrointestinal (Abdomen): Inspection/Auscultation: normal bowel sounds Percussion/Palpation: abdomen soft; abdomen nontender Musculoskeletal: Extremities: strength 5/5 throughout and + abnormal strength Skin: no rashes, warm and dry Psychiatric: Orientation: oriented x 3 Speech: normal rate/rhythm/volume of speech Genitourinary: crenshaw w/ ample yellow urine Results & Data ([facility]) Vital Signs (Past 12 Hours) Vital Signs Temp Pulse Pulse Pulse Resp BP Pulse Ox 09/21/22 12:03 36.6 C 98 H 18 133/89 96 09/21/22 07:23 36.8 C 92 H 21 152/96 H 98 09/21/22 07:00 89 09/21/22 05:03 90 20 91 09/21/22 04:03 37.1 C 89 20 149/84 H 90 O2 Del Method O2 Flow Rate 09/21/22 12:03 Nasal Cannula 2 09/21/22 07:23 Nasal Cannula 2 09/21/22 07:00 09/21/22 05:03 4 09/21/22 04:03 CPAP
--- NOTE | 2022-09-21 16:01 | Hospitalist Progress Note ---
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 No recent antibiotic treatment. Patient was increasingly sleepy as per at presentation. Patient with hemoglobin of 5.9 at admission and received 2 units PRBC transfusion in the ED. Of note, patient moved back to [place] from [place] last June 2022, patient had 3 hospital confinements at [place] for kidney failure and hypoxia prior to return to [place] per his . CHERYL over CKD: --CT Abd:Abnormal imaging of kidneys (bilateral kidneys with intermediate density lesions likely hemorrhagic/proteinaceous cysts --Renal USD: No renal calculi or hydronephrosis or solid renal mass. Bilateral simple and complex renal cyst. Bilateral diffuse cortical thinning with decreased corticomedullary differentiation compatible with chronic medical renal disease. --Baseline creatinine of around 1.4 reported --Cr slowly improving --Cr is 2.75 today Appreciate Nephrology Input Monitor renal function Avoid nephrotoxic agents as able Resumed diuretics as increasing fluid overload: IV Lasix 40 mg twice daily Metabolic encephalopathy: Multifactorial likely secondary to respiratory failure/hypercarbia Possible OHS/untreated RUTH Nocturnal hypoxia Chronic resp failure w/ hypercapnia and Hypoxia 09/08-09/09 Nocturnal pulse oximetry with 9 desaturation events, time is spent in desaturation greater than 5 minutes and time spent with saturation less than 89% is 1 hour 28-minute. 09/09 AM ABG with PCO2 of 55. Needs BiPAP upon discharge. Noncompliant with BiPAP use intermittently Appreciate pulmonology input Needs sleep study as outpatient Continue BiPAP while sleeping and at bedtime Mental status better today Acute on chronic anemia secondary to lower GI bleed Acute blood loss anemia Hb 5.9 on admission S/P 6 unit PRBC transfusion Iron level low --> s/p iron transfusion x 2. GI evaluated, status post EGD and colonoscopy. --08/31 EGD: No evidence of UGI bleeding, 2 duodenal polyps likely hyperplastic were biopsied with a cold forceps. --> HPE: 2 fragments of polypoid duodenal mucosa with nonspecific duodenitis. Negative for malignancy. --09/01 colonoscopy: The perianal and digital rectal exam were normal. A 10 mm polyp was found in the rectum which was removed with a cold snare and clips [MR conditional] were placed. HPE result is tubular adenoma, negative for high- grade dysplasia. Also diverticulosis in the sigmoid colon were noted. Nonbleeding internal hemorrhoids were noted. Recommendation is to repeat colonoscopy in 5 years for surveillance. Since no evidence of GI bleeding, recommended hematology evaluation. --09/01 peripheral smear: Reviewed FOBT negative, Ferritin > 700. Transfuse hemoglobin if less than 7 or for symptomatic anemia. Last transfusion on 09/02/22 Continue with folic acid and vitamin B12. Appreciate Hematology Input Repeat Ferritin level on 09/15 626 Continue pantoprazole. Monitor CBC Acute DVT: Per patient's , patient has not been mobile since October 2021 He used to be able to walk with cane prior to that. Patient was not on any pharmacological DVT prophylaxis initially because of GI bleed. Patient complained of left arm pain and was scanned for DVT on 09/05/2022 evening which came back positive for DVT in mid to distal left brachial vein. Also now has superficial clot in right UE INR remains supratherapeutic at 4.7>>4.3>3.7 Monitor INR Hold Coumadin today Troponin elevation: Secondary to CHERYL Echo: Grossly normal LV chamber size. Grossly normal LV systolic function without all wall segments able to be visualized. Denies chest pain Vitamin D deficiency Vit D level is <7 Started on Vit D 50,000 U weekly on 09/17/22 Other chronic medical conditions: Ongoing tobacco abuse, HTN, HLD, morbid obesity, gout/rheumatoid arthritis, chronic back pain, medication noncompliance DVT Px: Warfarin held INR supratherapeutic Code Status Full code Admission and Anticipated Discharge Date Admission Date: August 29, 2022 Subjective Patient is seen and examined at bedside States feeling well today Offers no complaints Oriented x3 during my encounter States he is using BiPAP overnight Has increased edema Denies any chest pain, dyspnea, dizziness, nausea Review of Systems Review of Systems: All systems reviewed & are unremarkable except as noted in Subjective Physical Exam Physical Exam: Physical Exam: Vitals signs as noted above General Appearance:Morbidly obese, no apparent distress Head: normocephalic, Atraumatic Eyes: normal inspection, EOMI Neck: supple, Trachea midline Respiratory/Chest: Normal breath sounds, CTA, No accessory muscle use Cardiovascular: S1, S2, No murmur Abdomen/GI:Soft, Non tender, Bowel sounds present Extremities/Musculoskeletal:normal inspection, 2 + edema Neurologic/Psych:AAOX3, grossly no focal neurological deficits Skin: normal color, warm Results & Data Results & Data ([facility]) Vital Signs (Past 12 Hours) Vital Signs Temp Pulse Pulse Pulse Resp BP Pulse Ox 09/21/22 15:06 94 H 09/21/22 12:03 36.6 C 98 H 18 133/89 96 09/21/22 07:23 36.8 C 92 H 21 152/96 H 98 09/21/22 07:00 89 09/21/22 05:03 90 20 91 09/21/22 04:03 37.1 C 89 20 149/84 H 90 O2 Del Method O2 Flow Rate 09/21/22 15:06 09/21/22 12:03 Nasal Cannula 2 09/21/22 07:23 Nasal Cannula 2 09/21/22 07:00 09/21/22 05:03 4 09/21/22 04:03 CPAP Laboratory Results [facility] 09/21/22 07:15 Sodium 138 Potassium 3.9 Chloride 99 Carbon Dioxide 31 BUN 69 H Creatinine 2.75 H D Glucose 80 Calcium 9.6
[2022-09-21] MEDS: oxyCODONE HCL IR 5 MG TAB (IMMEDIATE RELEASE) PO PRN (19:36)
[2022-09-21] MEDS: FUROSEMIDE 40 MG/4 ML VIAL IV SCH (21:08)
[2022-09-22 06:58] LABS: Hematocrit (blood only) 28.9 % (40.1-51.0); Hemoglobin 8.9 g/dl (14.0-18.0)
[2022-09-22 07:12] LABS: Prothrombin Time 29.7 Seconds (9.0-12.0)
[2022-09-22 07:21] LABS: BUN Creatinine Ratio 25.9 (10-20); Calcium 9.8 mg/dl (8.5-10.1); Creatinine Clr Calc Pharmacy 59.8 ml/min; Est GFR (African American) 30.7 ml/min; Est GFR (Non-African American) 26.5 ml/min; Potassium 3.6 mmol/L (3.5-5.1)
[2022-09-22] MEDS: oxyCODONE HCL IR 5 MG TAB (IMMEDIATE RELEASE) PO PRN (08:58)
[2022-09-22] MEDS: FUROSEMIDE 40 MG/4 ML VIAL IV SCH ×2 (08:58→21:37)
[2022-09-22] MEDS: DOCUSATE SODIUM 100 MG CAP PO SCH ×2 (08:59→21:36)
[2022-09-22] MEDS: FOLIC ACID 1 MG TAB PO SCH (08:59)
[2022-09-22] MEDS: CYANOCOBALAMIN (B-12) 100 MCG TABLET PO SCH (08:59)
[2022-09-22] MEDS: PANTOprazole 40 MG TAB PO SCH ×2 (08:59→21:37)
[2022-09-22] MEDS: carvediloL 12.5 MG TAB PO SCH ×2 (08:59→21:37)
--- NOTE | 2022-09-22 14:35 | Nephrology Progress Note ---
Date of Service September 22, 2022 Assessment & Plan Admission and Anticipated Discharge Date Admission Date: August 29, 2022 Subjective Subjective Assessment & Plan (1) CHERYL (acute kidney injury): Plan: further improved borderline oliguric acute kidney injury due to ischemic ATN in setting of acute blood loss anemia, obligate diuresis. Admission creatinine of 3.6; reported baseline 1.4 though truthfully no clear baseline in this pt who came to [facility] in June; victor manuel 2.1 on 09/06 at admission and this may be baseline; plateau'd at 3 or 3.1 09/08-09/11 w/ abrupt worsening to peak at 5.4 09/13, further improved today. Second episode of significant CHERYL / peak creat 4.6 prior to arrival in [place] 06/2022. improving creatinine after holding lasix entirely and fluid resuscitation. UA inflamed but not infected. has massive edema. lasix 40 iv bid made no difference to urine poutput still about 1100---1200 ml per day. Creat further down Increase lasix to 80 iv bid. Given Severe Chronic Hypoxia he does seem very susceptible to Intermittent CHERYL. for now no fluid limit Daily BMP and avoid nephrotoxins Subjective no interval events. needs to be fed now. made 1150 ml urine. denies sob; edema/pain unchanged Review of Systems Review of Systems: All systems reviewed & are unremarkable except as noted in Subjective Physical Exam Constitutional: well developed, well nourished, + obese and cooperative; no acute distress Eyes: EOM intact bilaterally ENMT: Ears: no external ear abnormality Nose: no external nose abnormality Mouth: + dry oral mucous membranes Neck: no nuchal rigidity Respiratory: + labored breathing (slight); no respira tory distress Auscultation: lungs clear to auscultation bilaterally and + diminished lung sounds Cardiovascular: Rate/Rhythm: regular rate, regular rhythm and + tachycardic Extremities: + edema (3+ pedal; trace dep; LUE edema) Gastrointestinal (Abdomen): Inspection/Auscultation: normal bowel sounds Percussion/Palpation: abdomen soft; abdomen nontender Musculoskeletal: Extremities: strength 5/5 throughout and + abnormal strength Skin: no rashes, warm and dry Psychiatric: Orientation: oriented x 3 Speech: normal rate/rhythm/volume of speech Genitourinary: crenshaw w/ ample yellow urine Results & Data ([facility]) Vital Signs (Past 12 Hours) Vital Signs Temp Pulse Pulse Resp BP Pulse Ox O2 Del Method 09/22/22 09:00 Nasal Cannula 09/22/22 11:35 36.5 C 87 18 112/72 96 Nasal Cannula 09/22/22 08:57 108/81 09/22/22 07:00 90 18 101/71 93 BiPAP 09/22/22 07:14 87 17 91 09/22/22 06:16 90 09/22/22 03:50 36.4 C L 89 24 117/74 90 BiPAP 09/22/22 03:43 90 24 O2 Flow Rate 09/22/22 09:00 2 09/22/22 11:35 09/22/22 08:57 09/22/22 07:00 4 09/22/22 07:14 4 09/22/22 06:16 09/22/22 03:50 09/22/22 03:43 4
[2022-09-22] MEDS ORDERED: WARFARIN SOD 1 MG TAB PO SCH (16:00)
--- NOTE | 2022-09-22 16:20 | Hospitalist Progress Note ---
Date of Service September 22, 2022 Assessment & Plan (1) CHERYL (acute kidney injury): (2) Anemia: (3) Acute GI bleeding: Plan Patient is a 56 yr male with H/O HTN, HLD, CKD [baseline creatinine 1.4], chronic anemia [baseline hemoglobin 9], morbid obesity, possible RUTH as per records, gout, rheumatoid arthritis, chronic back pain, medication noncompliance as per records, ongoing tobacco abuse presented to our ED 08/29/2022 with complaint of feeling sick for 3 days ago [employer] associated with nausea, vomiting, bloody diarrhea and increasing weakness. No recent antibiotic treatment. Patient was increasingly sleepy as per at presentation. Patient with hemoglobin of 5.9 at admission and received 2 units PRBC transfusion in the ED. Of note, patient moved back to [place] from [place] last June 2022, patient had 3 hospital confinements at [place] for kidney failure and hypoxia prior to return to [place] per his . CHERYL over CKD: --CT Abd:Abnormal imaging of kidneys (bilateral kidneys with intermediate density lesions likely hemorrhagic/proteinaceous cysts --Renal USD: No renal calculi or hydronephrosis or solid renal mass. Bilateral simple and complex renal cyst. Bilateral diffuse cortical thinning with decreased corticomedullary differentiation compatible with chronic medical renal disease. --Baseline creatinine of around 1.4 reported --Cr slowly improving --Cr is 2.5 today Appreciate Nephrology Input Avoid nephrotoxic agents as able Resumed diuretics as increasing fluid overload: Increased IV Lasix 80 mg twice daily Monitor renal function Metabolic encephalopathy: Multifactorial likely secondary to respiratory failure/hypercarbia Possible OHS/untreated RUTH Nocturnal hypoxia Chronic resp failure w/ hypercapnia and Hypoxia 09/08-09/09 Nocturnal pulse oximetry with 9 desaturation events, time is spent in desaturation greater than 5 minutes and time spent with saturation less than 89% is 1 hour 28-minute. 09/09 AM ABG with PCO2 of 55. Needs BiPAP upon discharge. Noncompliant with BiPAP use intermittently Appreciate pulmonology input Needs sleep study as outpatient Continue BiPAP while sleeping and at bedtime Acute on chronic anemia secondary to lower GI bleed Acute blood loss anemia Hb 5.9 on admission S/P 6 unit PRBC transfusion Iron level low --> s/p iron transfusion x 2. GI evaluated, status post EGD and colonoscopy. --08/31 EGD: No evidence of UGI bleeding, 2 duodenal polyps likely hyperplastic were biopsied with a cold forceps. --> HPE: 2 fragments of polypoid duodenal mucosa with nonspecific duodenitis. Negative for malignancy. --09/01 colonoscopy: The perianal and digital rectal exam were normal. A 10 mm p olyp was found in the rectum which was removed with a cold snare and clips [MR conditional] were placed. HPE result is tubular adenoma, negative for high- grade dysplasia. Also diverticulosis in the sigmoid colon were noted. Nonbleeding internal hemorrhoids were noted. Recommendation is to repeat colonoscopy in 5 years for surveillance. Since no evidence of GI bleeding, recommended hematology evaluation. --09/01 peripheral smear: Reviewed FOBT negative, Ferritin > 700. Transfuse hemoglobin if less than 7 or for symptomatic anemia. Last transfusion on 09/02/22 Continue with folic acid and vitamin B12. Appreciate Hematology Input Repeat Ferritin level on 09/15 626 Continue pantoprazole. Monitor CBC Acute DVT: Per patient's , patient has not been mobile since October 2021 He used to be able to walk with cane prior to that. Patient was not on any pharmacological DVT prophylaxis initially because of GI bleed. Patient complained of left arm pain and was scanned for DVT on 09/05/2022 evening which came back positive for DVT in mid to distal left brachial vein. Also now has superficial clot in right UE INR remains supratherapeutic at 4.7>>4.3>3.7>3.0 Monitor INR Resume Coumadin today Troponin elevation: Secondary to CHERYL Echo: Grossly normal LV chamber size. Grossly normal LV systolic function without all wall segments able to be visualized. Denies chest pain Vitamin D deficiency Vit D level is <7 Started on Vit D 50,000 U weekly on 09/17/22 Other chronic medical conditions: Ongoing tobacco abuse, HTN, HLD, morbid obesity, gout/rheumatoid arthritis, chronic back pain, medication noncompliance DVT Px: Warfarin Code Status Full code Admission and Anticipated Discharge Date Admission Date: August 29, 2022 Subjective Patient is seen and examined at bedside States having generalized body ache Otherwise no complaints Minimal diuresis despite IV Lasix Denies any chest pain, dyspnea, dizziness, nausea Review of Systems Review of Systems: All systems reviewed & are unremarkable except as noted in Subjective Physical Exam Physical Exam: Physical Exam: Vitals signs as noted above General Appearance:Morbidly obese, no apparent distress Head: normocephalic, Atraumatic Eyes: normal inspection, EOMI Neck: supple, Trachea midline Respiratory/Chest: Normal breath sounds, CTA, No accessory muscle use Cardiovascular: S1, S2, No murmur Abdomen/GI:Soft, Non tender, Bowel sounds present Extremities/Musculoskeletal:normal inspection, 2 + edema Neurologic/Psych:AAOX3, grossly no focal neurological deficits Skin: normal color, warm Results & Data Results & Data ([facility]) Vital Signs (Past 12 Hours) Vital Signs Temp Pulse Pulse Resp BP Pulse Ox O2 Del Method 09/22/22 15:42 37.1 C 87 18 130/86 95 Nasal Cannula 09/22/22 09:00 Nasal Cannula 09/22/22 11:35 36.5 C 87 18 112/72 96 Nasal Cannula 09/22/22 08:57 108/81 09/22/22 07:00 90 18 101/71 93 BiPAP 09/22/22 07:14 87 17 91 09/22/22 06:16 90 O2 Flow Rate 09/22/22 15:42 2 09/22/22 09:00 2 09/22/22 11:35 09/22/22 08:57 09/22/22 07:00 4 09/22/22 07:14 4 09/22/22 06:16 Laboratory Results Short CBC 09/22/22 Range/Units 06:36 Hgb 8.9 L (14.0-18.0) g/dl Hct 28.9 L (40.1-51.0) % BMP 09/22/22 06:36 Sodium 138 Potassium 3.6 Chloride 99 Carbon Dioxide 32 BUN 67 H Creatinine 2.59 H Glucose 100 H Calcium 9.8
[2022-09-23] MEDS: oxyCODONE HCL IR 5 MG TAB (IMMEDIATE RELEASE) PO PRN ×2 (03:28→17:08)
[2022-09-23 07:55] LABS: BUN Creatinine Ratio 22.6 (10-20); Creatinine Clr Calc Pharmacy 53.2 ml/min; Est GFR (Non-African American) 23.3 ml/min; Potassium 3.9 mmol/L (3.5-5.1)
[2022-09-23 08:01] LABS: INR 2.3 (0.9-1.1); Prothrombin Time 23.9 Seconds (9.0-12.0)
[2022-09-23] MEDS: PANTOprazole 40 MG TAB PO SCH ×2 (08:50→21:53)
[2022-09-23] MEDS: FOLIC ACID 1 MG TAB PO SCH (08:50)
[2022-09-23] MEDS: carvediloL 12.5 MG TAB PO SCH ×2 (08:50→21:57)
[2022-09-23] MEDS: DOCUSATE SODIUM 100 MG CAP PO SCH ×2 (08:50→21:53)
[2022-09-23] MEDS: CYANOCOBALAMIN (B-12) 100 MCG TABLET PO SCH (08:50)
[2022-09-23] MEDS: FUROSEMIDE 40 MG/4 ML VIAL IV SCH ×2 (08:51→21:57)
--- NOTE | 2022-09-23 11:18 | Nephrology Progress Note ---
Date of Service September 23, 2022 Assessment & Plan Admission and Anticipated Discharge Date Admission Date: August 29, 2022 Subjective Assessment & Plan (1) CHERYL (acute kidney injury): Plan: further improved borderline oliguric acute kidney injury due to ischemic ATN in setting of acute blood loss anemia, obligate diuresis. Admission creatinine of 3.6; reported baseline 1.4 though truthfully no clear baseline in this pt who came to [facility] in June; victor manuel 2.1 on 09/06 at admission and this may be baseline; plateau'd at 3 or 3.1 09/08-09/11 w/ abrupt worsening to peak at 5.4 09/13, further improved today. Second episode of significant CHERYL / peak creat 4.6 prior to arrival in [place] 06/2022. UA inflamed but not infected. has massive edema. Still only 2000 ml urine. Creat Slightly up after lasix dose raised Continue lasix 80 iv bid for today. if creat still rising tomorrow will lowe the dose Given Severe Chronic Hypoxia he does seem very susceptible to Intermittent CHERYL. for now no fluid limit Daily BMP and avoid nephrotoxins Subjective no interval events.made 2000 ml urine with lasix 80 iv bid. denies sob; edema/pain unchanged Review of Systems Review of Systems: All systems reviewed & are unremarkable except as noted in Subjective Physical Exam Constitutional: well developed, well nourished, + obese and cooperative; no acute distress Eyes: EOM intact bilaterally ENMT: Ears: no external ear abnormality Nose: no external nose abnormality Mouth: + dry oral mucous membranes Neck: no nuchal rigidity Respiratory: + labored breathing (slight); no respira tory distress Auscultation: lungs clear to auscultation bilaterally and + diminished lung sounds Cardiovascular: Rate/Rhythm: regular rate, regular rhythm and + tachycardic Extremities: + edema (3+ pedal; trace dep; LUE edema) Gastrointestinal (Abdomen): Inspection/Auscultation: normal bowel sounds Percussion/Palpation: abdomen soft; abdomen nontender Musculoskeletal: Extremities: strength 5/5 throughout and + abnormal strength Skin: no rashes, warm and dry Psychiatric: Orientation: oriented x 3 Speech: normal rate/rhythm/volume of speech Genitourinary: crenshaw w/ ample yellow urine Results & Data ([facility]) Vital Signs (Past 12 Hours) Vital Signs Temp Pulse Pulse Resp BP Pulse Ox O2 Del Method 09/23/22 08:00 36.8 C 90 18 128/86 BiPAP 09/23/22 03:12 36.5 C 95 H 20 100/70 88 L CPAP 09/23/22 02:09 82 26 H 93 09/22/22 23:29 87 18 93 O2 Flow Rate 09/23/22 08:00 09/23/22 03:12 09/23/22 02:09 3 09/22/22 23:29 3
--- NOTE | 2022-09-23 14:43 | Hospitalist Progress Note ---
Date of Service September 23, 2022 Assessment & Plan (1) CHERYL (acute kidney injury): (2) Anemia: (3) Acute GI bleeding: Plan Patient is a 56 yr male with H/O HTN, HLD, CKD [baseline creatinine 1.4], chronic anemia [baseline hemoglobin 9], morbid obesity, possible RUTH as per records, gout, rheumatoid arthritis, chronic back pain, medication noncompliance as per records, ongoing tobacco abuse presented to our ED 08/29/2022 with complaint of feeling sick for 3 days ago [employer] associated with nausea, vomiting, bloody diarrhea and increasing weakness. No recent antibiotic treatment. Patient was increasingly sleepy as per at presentation. Patient with hemoglobin of 5.9 at admission and received 2 units PRBC transfusion in the ED. Of note, patient moved back to [place] from [place] last June 2022, patient had 3 hospital confinements at [place] for kidney failure and hypoxia prior to return to [place] per his . CHERYL over CKD: --CT Abd:Abnormal imaging of kidneys (bilateral kidneys with intermediate density lesions likely hemorrhagic/proteinaceous cysts --Renal USD: No renal calculi or hydronephrosis or solid renal mass. Bilateral simple and complex renal cyst. Bilateral diffuse cortical thinning with decreased corticomedullary differentiation compatible with chronic medical renal disease. --Baseline creatinine of around 1.4 reported --Cr is 2.88 today Appreciate Nephrology Input Avoid nephrotoxic agents as able Resumed diuretics as increasing fluid overload: Increased IV Lasix 80 mg twice daily Monitor renal function Continue IV diuretics Metabolic encephalopathy: Multifactorial likely secondary to respiratory failure/hypercarbia Possible OHS/untreated RUTH Nocturnal hypoxia Chronic resp failure w/ hypercapnia and Hypoxia 09/08-09/09 Nocturnal pulse oximetry with 9 desaturation events, time is spent in desaturation greater than 5 minutes and time spent with saturation less than 89% is 1 hour 28-minute. 09/09 AM ABG with PCO2 of 55. Needs BiPAP upon discharge. Noncompliant with BiPAP use intermittently Appreciate pulmonology input Needs sleep study as outpatient Continue BiPAP while sleeping and at bedtime Acute on chronic anemia secondary to lower GI bleed Acute blood loss anemia Hb 5.9 on admission S/P 6 unit PRBC transfusion Iron level low --> s/p iron transfusion x 2. GI evaluated, status post EGD and colonoscopy. --08/31 EGD: No evidence of UGI bleeding, 2 duodenal polyps likely hyperplastic were biopsied with a cold forceps. --> HPE: 2 fragments of polypoid duodenal mucosa with nonspecific duodenitis. Negative for malignancy. --09/01 colonoscopy: The perianal and digital rectal exam were normal. A 10 mm p olyp was found in the rectum which was removed with a cold snare and clips [MR conditional] were placed. HPE result is tubular adenoma, negative for high- grade dysplasia. Also diverticulosis in the sigmoid colon were noted. Nonbleeding internal hemorrhoids were noted. Recommendation is to repeat colonoscopy in 5 years for surveillance. Since no evidence of GI bleeding, recommended hematology evaluation. --09/01 peripheral smear: Reviewed FOBT negative, Ferritin > 700. Transfuse hemoglobin if less than 7 or for symptomatic anemia. Last transfusion on 09/02/22 Continue with folic acid and vitamin B12. Appreciate Hematology Input Repeat Ferritin level on 09/15 626 Continue pantoprazole. Monitor CBC Acute DVT: Per patient's , patient has not been mobile since October 2021 He used to be able to walk with cane prior to that. Patient was not on any pharmacological DVT prophylaxis initially because of GI bleed. Patient complained of left arm pain and was scanned for DVT on 09/05/2022 evening which came back positive for DVT in mid to distal left brachial vein. Also now has superficial clot in right UE INR remains supratherapeutic at 4.7>>4.3>3.7>3.0>2.3 Monitor INR Continue Coumadin Troponin elevation: Secondary to CHERYL Echo: Grossly normal LV chamber size. Grossly normal LV systolic function without all wall segments able to be visualized. Denies chest pain Vitamin D deficiency Vit D level is <7 Started on Vit D 50,000 U weekly on 09/17/22 Other chronic medical conditions: Ongoing tobacco abuse, HTN, HLD, morbid obesity, gout/rheumatoid arthritis, chronic back pain, medication noncompliance DVT Px: Warfarin Code Status Full code Admission and Anticipated Discharge Date Admission Date: August 29, 2022 Subjective Patient is seen and examined at bedside Offers no complaints Cr slightly up Diuresing better Denies any chest pain, dyspnea, dizziness, nausea Review of Systems Review of Systems: All systems reviewed & are unremarkable except as noted in Subjective Physical Exam Physical Exam: Physical Exam: Vitals signs as noted above General Appearance:Morbidly obese, no apparent distress Head: normocephalic, Atraumatic Eyes: normal inspection, EOMI Neck: supple, Trachea midline Respiratory/Chest: Normal breath sounds, CTA, No accessory muscle use Cardiovascular: S1, S2, No murmur Abdomen/GI:Soft, Non tender, Bowel sounds present Extremities/Musculoskeletal:normal inspection, 2 + edema Neurologic/Psych:AAOX3, grossly no focal neurological deficits Skin: normal color, warm Results & Data Results & Data ([facility]) Vital Signs (Past 12 Hours) Vital Signs Temp Pulse Resp BP Pulse Ox O2 Del Method O2 Flow Rate 09/23/22 12:57 36.7 C 87 16 111/70 96 Room Air 09/23/22 08:00 Nasal Cannula 2 09/23/22 08:00 36.8 C 90 18 128/86 BiPAP 09/23/22 03:12 36.5 C 95 H 20 100/70 88 L CPAP Laboratory Results [facility] 09/23/22 07:16 Sodium 138 Potassium 3.9 Chloride 98 Carbon Dioxide 33 H BUN 65 H Creatinine 2.88 H Glucose 116 H Calcium 10.0
[2022-09-23] MEDS: WARFARIN SOD 2 MG TAB PO SCH (17:09)
[2022-09-24 07:51] LABS: Hematocrit (blood only) 28.8 % (40.1-51.0); Hemoglobin 8.9 g/dl (14.0-18.0); Mean Corpuscular Hemoglobin 28.8 pg (25.0-34.0); Mean Corpuscular Hgb Conc 30.9 g/dL (32.0-36.0); Mean Corpuscular Volume 93.2 fL (80.0-100.0); Mean Platelet Volume 9.7 fL (9.4-12.4); Platelet Count 445 K/uL (130-400); RDW Coefficient of Variation 15.9 % (11.5-14.5); RDW Standard Deviation 54.1 fL (36.4-46.3); Red Blood Count 3.09 M/uL (4.63-6.08); White Blood Count 8.19 K/ul (4.8-10.8)
[2022-09-24] MEDS: ERGOCALCIFEROL 50,000 UNITS 1250 MCG CAP PO SCH (07:55)
[2022-09-24] MEDS: carvediloL 12.5 MG TAB PO SCH (07:55)
[2022-09-24] MEDS: FOLIC ACID 1 MG TAB PO SCH (07:56)
[2022-09-24] MEDS: FUROSEMIDE 40 MG/4 ML VIAL IV SCH (07:56)
[2022-09-24] MEDS: CYANOCOBALAMIN (B-12) 100 MCG TABLET PO SCH (07:56)
[2022-09-24] MEDS: DOCUSATE SODIUM 100 MG CAP PO SCH ×2 (07:56→20:17)
[2022-09-24] MEDS: PANTOprazole 40 MG TAB PO SCH ×2 (07:57→20:19)
[2022-09-24 08:14] LABS: Est GFR (African American) 18.1 ml/min; Est GFR (Non-African American) 15.6 ml/min; Potassium 3.9 mmol/L (3.5-5.1)
[2022-09-24 08:15] LABS: BUN Creatinine Ratio 17.9 (10-20); Calcium 9.9 mg/dl (8.5-10.1); Creatinine Clr Calc Pharmacy 38.1 ml/min; INR 2.5 (0.9-1.1); Prothrombin Time 25.8 Seconds (9.0-12.0)
--- NOTE | 2022-09-24 12:01 | Nephrology Progress Note ---
Date of Service September 24, 2022 Assessment & Plan Admission and Anticipated Discharge Date Admission Date: August 29, 2022 Subjective Assessment & Plan (1) CHERYL (acute kidney injury): Plan: further improved borderline oliguric acute kidney injury due to ischemic ATN in setting of acute blood loss anemia, obligate diuresis. Admission creatinine of 3.6; reported baseline 1.4 though truthfully no clear baseline in this pt who came to [facility] in June; victor manuel 2.1 on 09/06 at admission and this may be baseline; plateau'd at 3 or 3.1 09/08-09/11 w/ abrupt worsening to peak at 5.4 09/13, further improved today. Second episode of significant CHERYL / peak creat 4.6 prior to arrival in [place] 06/2022. UA inflamed but not infected. Given Severe Chronic Hypoxia he does seem very susceptible to Intermittent CHERYL. Now having third episode of CHERYL for now no fluid limit Daily BMP and avoid nephrotoxins Stop lasix and Hold BP lowering meds to allow for renal recovery Subjective BP dropped a lot and then Creat went up quite a bit. Feels weak. also lot less urine only 450 ml. Review of Systems Review of Systems: All systems reviewed & are unremarkable except as noted in Subjective Physical Exam Constitutional: well developed, well nourished, + obese and cooperative; no acute distress Eyes: EOM intact bilaterally ENMT: Ears: no external ear abnormality Nose: no external nose abnormality Mouth: + dry oral mucous membranes Neck: no nuchal rigidity Respiratory: + labored breathing (slight); no respira tory distress Auscultation: lungs clear to auscultation bilaterally and + diminished lung sounds Cardiovascular: Rate/Rhythm: regular rate, regular rhythm and + tachycardic Extremities: + edema (3+ pedal; trace dep; LUE edema) Gastrointestinal (Abdomen): Inspection/Auscultation: normal bowel sounds Percussion/Palpation: abdomen soft; abdomen nontender Musculoskeletal: Extremities: strength 5/5 throughout and + abnormal strength Skin: no rashes, warm and dry Psychiatric: Orientation: oriented x 3 Speech: normal rate/rhythm/volume of speech Genitourinary: crenshaw w/ ample yellow urine Results & Data ([facility]) Vital Signs (Past 12 Hours) Vital Signs Temp Pulse Pulse Resp BP Pulse Ox O2 Del Method 09/24/22 11:27 36.2 C L 80 24 93/67 L 99 Nasal Cannula 09/24/22 08:00 Nasal Cannula 09/24/22 08:00 36.8 C 81 22 92/62 L 96 Nasal Cannula 09/24/22 03:37 87 26 H 88 L 09/24/22 03:07 37.1 C 85 20 87/64 L 92 BiPAP O2 Flow Rate 09/24/22 11:27 4 09/24/22 08:00 3 09/24/22 08:00 09/24/22 03:37 4 09/24/22 03:07
--- NOTE | 2022-09-24 15:01 | Hospitalist Progress Note ---
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 No recent antibiotic treatment. Patient was increasingly sleepy as per at presentation. Patient with hemoglobin of 5.9 at admission and received 2 units PRBC transfusion in the ED. Of note, patient moved back to [place] from [place] last June 2022, patient had 3 hospital confinements at [place] for kidney failure and hypoxia prior to return to [place] per his . CHERYL over CKD: --CT Abd:Abnormal imaging of kidneys (bilateral kidneys with intermediate density lesions likely hemorrhagic/proteinaceous cysts --Renal USD: No renal calculi or hydronephrosis or solid renal mass. Bilateral simple and complex renal cyst. Bilateral diffuse cortical thinning with decreased corticomedullary differentiation compatible with chronic medical renal disease. --Baseline creatinine of around 1.4 reported --Cr is 2.88> 4.02 Appreciate Nephrology Input Avoid nephrotoxic agents as able Monitor renal function IV Lasix held due to worsening renal function BP low today, Held Coreg, Verapamil Metabolic encephalopathy: Multifactorial likely secondary to respiratory failure/hypercarbia Possible OHS/untreated RUTH Nocturnal hypoxia Chronic resp failure w/ hypercapnia and Hypoxia 09/08-09/09 Nocturnal pulse oximetry with 9 desaturation events, time is spent in desaturation greater than 5 minutes and time spent with saturation less than 89% is 1 hour 28-minute. 09/09 AM ABG with PCO2 of 55. Needs BiPAP upon discharge. Noncompliant with BiPAP use intermittently Appreciate pulmonology input Needs sleep study as outpatient Continue BiPAP while sleeping and at bedtime Mental status much improved Acute on chronic anemia secondary to lower GI bleed Acute blood loss anemia Hb 5.9 on admission S/P 6 unit PRBC transfusion Iron level low --> s/p iron transfusion x 2. GI evaluated, status post EGD and colonoscopy. --08/31 EGD: No evidence of UGI bleeding, 2 duodenal polyps likely hyperplastic were biopsied with a cold forceps. --> HPE: 2 fragments of polypoid duodenal mucosa with nonspecific duodenitis. Negative for malignancy. --09/01 colonoscopy: The perianal and digital rectal exam were normal. A 10 mm polyp was found in the rectum which was removed with a cold snare and clips [MR conditional] were placed. HPE result is tubular adenoma, negative for high- grade dysplasia. Also diverticulosis in the sigmoid colon were noted. Nonbleeding internal hemorrhoids were noted. Recommendation is to repeat colonoscopy in 5 years for surveillance. Since no evidence of GI bleeding, recommended hematology evaluation. --09/01 peripheral smear: Reviewed FOBT negative, Ferritin > 700. Transfuse hemoglobin if less than 7 or for symptomatic anemia. Last transfusion on 09/02/22 Continue with folic acid and vitamin B12. Appreciate Hematology Input Repeat Ferritin level on 09/15 626 Continue pantoprazole. Monitor CBC Acute DVT: Per patient's , patient has not been mobile since October 2021 He used to be able to walk with cane prior to that. Patient was not on any pharmacological DVT prophylaxis initially because of GI bleed. Patient complained of left arm pain and was scanned for DVT on 09/05/2022 evening which came back positive for DVT in mid to distal left brachial vein. Also now has superficial clot in right UE INR remains supratherapeutic at 4.7>>4.3>3.7>3.0>2.5 Monitor INR Continue Coumadin Troponin elevation: Secondary to CHERYL Echo: Grossly normal LV chamber size. Grossly normal LV systolic function without all wall segments able to be visualized. Denies chest pain Vitamin D deficiency Vit D level is <7 Started on Vit D 50,000 U weekly on 09/17/22 Other chronic medical conditions: Ongoing tobacco abuse, HTN, HLD, morbid obesity, gout/rheumatoid arthritis, chronic back pain, medication noncompliance DVT Px: Warfarin Code Status Full code Admission and Anticipated Discharge Date Admission Date: August 29, 2022 Subjective Patient is seen and examined at bedside States feeling well No new complaints Renal function worsening Denies any chest pain, dyspnea, dizziness, nausea BP low today Review of Systems Review of Systems: All systems reviewed & are unremarkable except as noted in Subjective Physical Exam Physical Exam: Vitals signs as noted above General Appearance:Morbidly obese, no apparent distress Head: normocephalic, Atraumatic Eyes: normal inspection, EOMI Neck: supple, Trachea midline Respiratory/Chest: Normal breath sounds, CTA, No accessory muscle use Cardiovascular: S1, S2, No murmur Abdomen/GI:Soft, Non tender, Bowel sounds present Extremities/Musculoskeletal:normal inspection, 2 + edema Neurologic/Psych:AAOX3, grossly no focal neurological deficits Skin: normal color, warm Results & Data Results & Data ([facility]) Vital Signs (Past 12 Hours) Vital Signs Temp Pulse Pulse Resp BP Pulse Ox O2 Del Method 09/24/22 11:27 36.2 C L 80 24 93/67 L 99 Nasal Cannula 09/24/22 08:00 Nasal Cannula 09/24/22 08:00 36.8 C 81 22 92/62 L 96 Nasal Cannula 09/24/22 03:37 87 26 H 88 L 09/24/22 03:07 37.1 C 85 20 87/64 L 92 BiPAP O2 Flow Rate 09/24/22 11:27 4 09/24/22 08:00 3 09/24/22 08:00 09/24/22 03:37 4 09/24/22 03:07
[2022-09-24] MEDS: WARFARIN SOD 2 MG TAB PO SCH (16:52)
[2022-09-25 06:28] LABS: INR 2.8 (0.9-1.1); Prothrombin Time 28.1 Seconds (9.0-12.0)
[2022-09-25 07:10] LABS: BUN Creatinine Ratio 18.1 (10-20); Calcium 9.6 mg/dl (8.5-10.1); Est GFR (African American) 17.4 ml/min; Potassium 3.9 mmol/L (3.5-5.1)
[2022-09-25] MEDS: CYANOCOBALAMIN (B-12) 100 MCG TABLET PO SCH (07:40)
[2022-09-25] MEDS: FOLIC ACID 1 MG TAB PO SCH (07:41)
[2022-09-25] MEDS: PANTOprazole 40 MG TAB PO SCH ×2 (07:41→20:56)
[2022-09-25] MEDS: DOCUSATE SODIUM 100 MG CAP PO SCH ×2 (07:41→20:56)
--- NOTE | 2022-09-25 14:59 | Hospitalist Progress Note ---
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 No recent antibiotic treatment. Patient was increasingly sleepy as per at presentation. Patient with hemoglobin of 5.9 at admission and received 2 units PRBC transfusion in the ED. Of note, patient moved back to [place] from [place] last June 2022, patient had 3 hospital confinements at [place] for kidney failure and hypoxia prior to return to [place] per his . CHERYL over CKD: --CT Abd:Abnormal imaging of kidneys (bilateral kidneys with intermediate density lesions likely hemorrhagic/proteinaceous cysts --Renal USD: No renal calculi or hydronephrosis or solid renal mass. Bilateral simple and complex renal cyst. Bilateral diffuse cortical thinning with decreased corticomedullary differentiation compatible with chronic medical renal disease. --Baseline creatinine of around 1.4 reported --Cr is 2.88> 4.14 Appreciate Nephrology Input Monitor renal function Creatinine 1.14 today Continue to hold Lasix, Coreg, verapamil Avoid nephrotoxic angiogram Metabolic encephalopathy: Multifactorial likely secondary to respiratory failure/hypercarbia Possible OHS/untreated RUTH Nocturnal hypoxia Chronic resp failure w/ hypercapnia and Hypoxia 09/08-09/09 Nocturnal pulse oximetry with 9 desaturation events, time is spent in desaturation greater than 5 minutes and time spent with saturation less than 89% is 1 hour 28-minute. 09/09 AM ABG with PCO2 of 55. Needs BiPAP upon discharge. Noncompliant with BiPAP use intermittently Appreciate pulmonology input Needs sleep study as outpatient Continue BiPAP while sleeping and at bedtime Mental status seemed to be back to baseline Acute on chronic anemia secondary to lower GI bleed Acute blood loss anemia Hb 5.9 on admission S/P 6 unit PRBC transfusion Iron level low --> s/p iron transfusion x 2. GI evaluated, status post EGD and colonoscopy. --08/31 EGD: No evidence of UGI bleeding, 2 duodenal polyps likely hyperplastic were biopsied with a cold forceps. --> HPE: 2 fragments of polypoid duodenal mucosa with nonspecific duodenitis. Negative for malignancy. --09/01 colonoscopy: The perianal and digital rectal exam were normal. A 10 mm polyp was found in the rectum which was removed with a cold snare and clips [MR conditional] were placed. HPE result is tubular adenoma, negative for high- grade dysplasia. Also diverticulosis in the sigmoid colon were noted. Nonbleeding internal hemorrhoids were noted. Recommendation is to repeat colonoscopy in 5 years for surveillance. Since no evidence of GI bleeding, recommended hematology evaluation. --09/01 peripheral smear: Reviewed FOBT negative, Ferritin > 700. Transfuse hemoglobin if less than 7 or for symptomatic anemia. Last transfusion on 09/02/22 Continue with folic acid and vitamin B12. Appreciate Hematology Input Repeat Ferritin level on 09/15 626 Continue pantoprazole. Monitor CBC Acute DVT: Per patient's , patient has not been mobile since October 2021 He used to be able to walk with cane prior to that. Patient was not on any pharmacological DVT prophylaxis initially because of GI bleed. Patient complained of left arm pain and was scanned for DVT on 09/05/2022 evening which came back positive for DVT in mid to distal left brachial vein. Also now has superficial clot in right UE INR remains supratherapeutic at 4.7>>4.3>3.7>3.0>2.8 Monitor INR Continue Coumadin Troponin elevation: Secondary to CHERYL Echo: Grossly normal LV chamber size. Grossly normal LV systolic function without all wall segments able to be visualized. Denies chest pain Vitamin D deficiency Vit D level is <7 Started on Vit D 50,000 U weekly on 09/17/22 Other chronic medical conditions: Ongoing tobacco abuse, HTN, HLD, morbid obesity, gout/rheumatoid arthritis, c hronic back pain, medication noncompliance DVT Px: Warfarin Code Status Full code Admission and Anticipated Discharge Date Admission Date: August 29, 2022 Subjective Patient is seen and examined at bedside Reports chronic generalized pain No other complaints Reports being compliant with BiPAP at bedtime Creatinine 4.14 today Denies any chest pain, dyspnea, dizziness, nausea BP stable Physical Exam Physical Exam: Vitals signs as noted above General Appearance:Morbidly obese, no apparent distress Head: normocephalic, Atraumatic Eyes: normal inspection, EOMI Neck: supple, Trachea midline Respiratory/Chest: Normal breath sounds, CTA, No accessory muscle use Cardiovascular: S1, S2, No murmur Abdomen/GI:Soft, Non tender, Bowel sounds present Extremities/Musculoskeletal:normal inspection, 2 + edema Neurologic/Psych:AAOX3, grossly no focal neurological deficits Skin: normal color, warm Results & Data Results & Data ([facility]) Vital Signs (Past 12 Hours) Vital Signs Temp Pulse Pulse Pulse Resp BP Pulse Ox 09/25/22 14:42 36.6 C 82 16 111/71 98 09/25/22 11:41 36.6 C 80 23 97/63 L 99 09/25/22 07:00 78 09/25/22 07:00 09/25/22 07:37 36.9 C 80 18 100/60 98 09/25/22 04:04 79 24 128/80 100 O2 Del Method O2 Flow Rate 09/25/22 14:42 Nasal Cannula 4 09/25/22 11:41 Nasal Cannula 4 09/25/22 07:00 09/25/22 07:00 Nasal Cannula 3 09/25/22 07:37 Nasal Cannula 3 09/25/22 04:04 BiPAP 4 Laboratory Results BMP 09/25/22 05:54 Sodium 134 L Potassium 3.9 Chloride 95 L Carbon Dioxide 33 H BUN 75 H Creatinine 4.14 H Glucose 85 Calcium 9.6
--- NOTE | 2022-09-25 16:25 | Nephrology Progress Note ---
Date of Service September 25, 2022 Assessment & Plan Admission and Anticipated Discharge Date Admission Date: August 29, 2022 Subjective Assessment & Plan (1) CHERYL (acute kidney injury): Plan: further improved borderline oliguric acute kidney injury due to ischemic ATN in setting of acute blood loss anemia, obligate diuresis. Admission creatinine of 3.6; reported baseline 1.4 though truthfully no clear baseline in this pt who came to [facility] in June; victor manuel 2.1 on 09/06 at admission and this may be baseline; plateau'd at 3 or 3.1 09/08-09/11 w/ abrupt worsening to peak at 5.4 09/13, further improved today. Second episode of significant CHERYL / peak creat 4.6 prior to arrival in [place] 06/2022. UA inflamed but not infected. Given Severe Chronic Hypoxia he does seem very susceptible to Intermittent CHERYL. Now having third episode of CHERYL for now no fluid limit Daily BMP and avoid nephrotoxins Stop lasix and Hold BP lowering meds to allow for renal recovery Subjective BP dropped a lot and then Creat went up quite a bit. Feels weak. Review of Systems Review of Systems: All systems reviewed & are unremarkable except as noted in Subjective Physical Exam Constitutional: well developed, well nourished, + obese and cooperative; no acute distress Eyes: EOM intact bilaterally ENMT: Ears: no external ear abnormality Nose: no external nose abnormality Mouth: + dry oral mucous membranes Neck: no nuchal rigidity Respiratory: + labored breathing (slight); no respira tory distress Auscultation: lungs clear to auscultation bilaterally and + diminished lung sounds Cardiovascular: Rate/Rhythm: regular rate, regular rhythm and + tac hycardic Extremities: + edema (3+ pedal; trace dep; LUE edema) Gastrointestinal (Abdomen): Inspection/Auscultation: normal bowel sounds Percussion/Palpation: abdomen soft; abdomen nontender Musculoskeletal: Extremities: strength 5/5 throughout and + abnormal strength Skin: no rashes, warm and dry Psychiatric: Orientation: oriented x 3 Speech: normal rate/rhythm/volume of speech Genitourinary: crenshaw w/ ample yellow urine Results & Data ([facility]) Vital Signs (Past 12 Hours) Vital Signs Temp Pulse Pulse Resp BP Pulse Ox O2 Del Method 09/25/22 14:42 36.6 C 82 16 111/71 98 Nasal Cannula 09/25/22 11:41 36.6 C 80 23 97/63 L 99 Nasal Cannula 09/25/22 07:00 78 09/25/22 07:00 Nasal Cannula 09/25/22 07:37 36.9 C 80 18 100/60 98 Nasal Cannula O2 Flow Rate 09/25/22 14:42 4 09/25/22 11:41 4 09/25/22 07:00 09/25/22 07:00 3 09/25/22 07:37 3
[2022-09-25] MEDS: WARFARIN SOD 2 MG TAB PO SCH (17:04)
[2022-09-25] MEDS: oxyCODONE HCL IR 5 MG TAB (IMMEDIATE RELEASE) PO PRN (23:55)
[2022-09-26 07:08] LABS: Hematocrit (blood only) 27.9 % (40.1-51.0); Hemoglobin 8.7 g/dl (14.0-18.0); Mean Corpuscular Hemoglobin 28.2 pg (25.0-34.0); Mean Corpuscular Hgb Conc 31.2 g/dL (32.0-36.0); Mean Corpuscular Volume 90.6 fL (80.0-100.0); Mean Platelet Volume 9.8 fL (9.4-12.4); Nucleated RBC # (auto) 0.02 K/uL (0-0); Nucleated RBC % (auto) 0.3 %; Platelet Count 421 K/uL (130-400); RDW Coefficient of Variation 15.7 % (11.5-14.5); RDW Standard Deviation 51.3 fL (36.4-46.3); Red Blood Count 3.08 M/uL (4.63-6.08); White Blood Count 6.98 K/ul (4.8-10.8)
[2022-09-26 07:26] LABS: INR 3.2 (0.9-1.1)
[2022-09-26 07:34] LABS: BUN Creatinine Ratio 19.3 (10-20); Calcium 9.9 mg/dl (8.5-10.1); Creatinine Clr Calc Pharmacy 40.7 ml/min; Est GFR (African American) 19.3 ml/min; Est GFR (Non-African American) 16.7 ml/min; Potassium 3.7 mmol/L (3.5-5.1)
[2022-09-26] MEDS: DOCUSATE SODIUM 100 MG CAP PO SCH ×2 (09:18→19:43)
[2022-09-26] MEDS: CYANOCOBALAMIN (B-12) 100 MCG TABLET PO SCH (09:18)
[2022-09-26] MEDS: PANTOprazole 40 MG TAB PO SCH ×2 (09:18→19:43)
[2022-09-26] MEDS: FOLIC ACID 1 MG TAB PO SCH (09:18)
--- NOTE | 2022-09-26 09:40 | Nephrology Progress Note ---
Date of Service September 26, 2022 Assessment & Plan (1) CHERYL (acute kidney injury): Plan: improving recurrent nonoliguric acute kidney injury due to ischemic ATN in [facility] [place] of acute blood loss anemia, obligate diuresis. Admission creatinine of 3.6; reported baseline 1.4 though truthfully no clear baseline in this pt who came to [facility] in June; victor manuel 2.1 on 09/06 at admission and this may be baseline; plateau'd at 3 or 3.1 09/08-09/11 w/ abrupt worsening to peak at 5.4 09/13 which was his Second episode of significant CHERYL / peak creat 4.6 prior to arrival in [place] 06/2022. UA inflamed but not infected. Given Severe Chronic Hypoxia he does seem very susceptible to Intermittent CHERYL and to diuretic dosing Now improving from third episode of CHERYL w/ peak creatinine 4.1 for now no fluid limit Daily BMP and avoid nephrotoxins cont to hold lasix and Hold BP lowering meds to allow for renal recovery >d/w Dr Balderas > agree w/ resuming coreg but at lower rate of 6. 25 mg bid >>if HR consistently >100, consider resuming verapamil ->>> again today urged him to move/mobilize fluid/mm as much as possible dialysis will be extremely challenging for this 450 lb patient should he ever need it and really hope we can avoid this Admission and Anticipated Discharge Date Admission Date: August 29, 2022 Subjective no interval events; feels tired, weak; no worsening sob; denies worsening edema; does not comment on muscskel pain Review of Systems Review of Systems: All systems reviewed & are unremarkable except as noted in Subjective Physical Exam Constitutional: well developed, well nourished, + obese and cooperative; no acute distress Eyes: EOM intact bilaterally ENMT: Ears: no external ear abnormality Nose: no external nose abnormality Mouth: + dry oral mucous membranes Neck: no nuchal rigidity Respiratory: + labored breathing (slight); no respiratory distress Aus cultation: lungs clear to auscultation bilaterally, + diminished lung sounds and + rhonchi Cardiovascular: Rate/Rhythm: regular rate, regular rhythm and + tachycardic Extremities: + edema (3+ pedal; trace dep; LUE edema) Gastrointestinal (Abdomen): Inspection/Auscultation: normal bowel sounds Percussion/Palpation: abdomen soft; abdomen nontender Musculoskeletal: Extremities: strength 5/5 throughout and + abnormal strength Skin: no rashes, warm and dry Psychiatric: Orientation: oriented x 3 Speech: normal rate/rhythm/volume of speech Results & Data ([facility]) Vital Signs (Past 12 Hours) Vital Signs Temp Pulse Pulse Pulse Resp BP Pulse Ox 09/26/22 08:33 36.8 C 91 H 20 109/80 95 09/26/22 03:22 36.8 C 91 H 18 117/79 94 09/25/22 23:43 36.7 C 85 18 123/74 96 09/25/22 23:21 09/25/22 22:52 86 20 94 O2 Del Method O2 Flow Rate 09/26/22 08:33 Nasal Cannula 3.0 09/26/22 03:22 Nasal Cannula 3 09/25/22 23:43 Nasal Cannula 3 09/25/22 23:21 Nasal Cannula 3 09/25/22 22:52 4 Laboratory Results 09/26/22 06:46 09/26/22 06:46
--- NOTE | 2022-09-26 13:05 | Hospitalist Progress Note ---
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 No recent antibiotic treatment. Patient was increasingly sleepy as per at presentation. Patient with hemoglobin of 5.9 at admission and received 2 units PRBC transfusion in the ED. Of note, patient moved back to [place] from [place] last June 2022, patient had 3 hospital confinements at [place] for kidney failure and hypoxia prior to return to [place] per his . CHERYL over CKD: --CT Abd:Abnormal imaging of kidneys (bilateral kidneys with intermediate density lesions likely hemorrhagic/proteinaceous cysts --Renal USD: No renal calculi or hydronephrosis or solid renal mass. Bilateral simple and complex renal cyst. Bilateral diffuse cortical thinning with decreased corticomedullary differentiation compatible with chronic medical renal disease. --Baseline creatinine of around 1.4 reported --Cr is 2.88> 4.14> 3.78 Appreciate Nephrology Input Monitor renal function Creatinine 3.78 today Continue to hold Lasix, verapamil Avoid nephrotoxic agents as able Restart Coreg at low-dose as blood pressure better Metabolic encephalopathy: Multifactorial likely secondary to respiratory failure/hypercarbia Possible OHS/untreated RUTH Nocturnal hypoxia Chronic resp failure w/ hypercapnia and Hypoxia 09/08-09/09 Nocturnal pulse oximetry with 9 desaturation events, time is spent in desaturation greater than 5 minutes and time spent with saturation less than 89% is 1 hour 28-minute. 09/09 AM ABG with PCO2 of 55. Needs BiPAP upon discharge. Noncompliant with BiPAP use intermittently Appreciate pulmonology input Needs sleep study as outpatient Continue BiPAP while sleeping and at bedtime Mental status back to baseline Acute on chronic anemia secondary to lower GI bleed Acute blood loss anemia Hb 5.9 on admission S/P 6 unit PRBC transfusion Iron level low --> s/p iron transfusion x 2. GI evaluated, status post EGD and colonoscopy. --08/31 EGD: No evidence of UGI bleeding, 2 duodenal polyps likely hyperplastic were biopsied with a cold forceps. --> HPE: 2 fragments of polypoid duodenal mucosa with nonspecific duodenitis. Negative for malignancy. --09/01 colonoscopy: The perianal and digital rectal exam were normal. A 10 mm polyp was found in the rectum which was removed with a cold snare and clips [MR conditional] were placed. HPE result is tubular adenoma, negative for high- grade dysplasia. Also diverticulosis in the sigmoid colon were noted. Nonbleeding internal hemorrhoids were noted. Recommendation is to repeat colonoscopy in 5 years for surveillance. Since no evidence of GI bleeding, recommended hematology evaluation. --09/01 peripheral smear: Reviewed FOBT negative, Ferritin > 700. Transfuse hemoglobin if less than 7 or for symptomatic anemia. Last transfusion on 09/02/22 Continue with folic acid and vitamin B12. Appreciate Hematology Input Repeat Ferritin level on 09/15 626 Continue pantoprazole. Monitor CBC Acute DVT: Per patient's , patient has not been mobile since October 2021 He used to be able to walk with cane prior to that. Patient was not on any pharmacological DVT prophylaxis initially because of GI bleed. Patient complained of left arm pain and was scanned for DVT on 09/05/2022 evening which came back positive for DVT in mid to distal left brachial vein. Also now has superficial clot in right UE INR remains supratherapeutic at 4.7>>4.3>3.7>3.0>2.8>3.2 Monitor INR Decrease Coumadin to 1mg today Troponin elevation: Secondary to CHERYL Echo: Grossly normal LV chamber size. Grossly normal LV systolic function without all wall segments able to be visualized. Denies chest pain Vitamin D deficiency Vit D level is <7 Started on Vit D 50,000 U weekly on 09/17/22 Other chronic medical conditions: Ongoing tobacco abuse, HTN, HLD, morbid obesity, gout/rheumatoid arthritis, chronic back pain, medication noncompliance DVT Px: Warfarin Code Status Full code Admission and Anticipated Discharge Date Admission Date: August 29, 2022 Subjective Patient is seen and examined at bedside No new complaints Discussed with nephrology today Renal function slowly improving BP better today Denies any chest pain, dyspnea, dizziness, nausea Review of Systems Review of Systems: All systems reviewed & are unremarkable except as noted in Subjective Physical Exam 2 Physical Exam: Vitals signs as noted above General Appearance:Morbidly obese, no apparent distress Head: normocephalic, Atraumatic Eyes: normal inspection, EOMI Neck: supple, Trachea midline Respiratory/Chest: Normal breath sounds, CTA, No accessory muscle use Cardiovascular: S1, S2, No murmur Abdomen/GI:Soft, Non tender, Bowel sounds present Extremities/Musculoskeletal:normal inspection, 2 + edema Neurologic/Psych:AAOX3, grossly no focal neurological deficits Skin: normal color, warm Results & Data Results & Data ([facility]) Vital Signs (Past 12 Hours) Vital Signs Temp Pulse Resp BP Pulse Ox O2 Del Method O2 Flow Rate 09/26/22 12:23 37.0 C 87 21 131/74 93 Nasal Cannula 3.0 09/26/22 08:00 Nasal Cannula 3 09/26/22 08:33 36.8 C 91 H 20 109/80 95 Nasal Cannula 3.0 09/26/22 03:22 36.8 C 91 H 18 117/79 94 Nasal Cannula 3 Laboratory Results Short CBC 09/26/22 Range/Units 06:46 WBC 6.98 (4.8-10.8) K/ul Hgb 8.7 L (14.0-18.0) g/dl Hct 27.9 L (40.1-51.0) % Plt Count 421 H (130-400) K/uL BMP 09/26/22 06:46 Sodium 135 L Potassium 3.7 Chloride 95 L Carbon Dioxide 32 BUN 73 H Creatinine 3.78 H D Glucose 82 Calcium 9.9
[2022-09-26] MEDS: oxyCODONE HCL IR 5 MG TAB (IMMEDIATE RELEASE) PO PRN ×2 (14:17→22:40)
[2022-09-26] MEDS: WARFARIN SOD 1 MG TAB PO SCH (16:27)
[2022-09-26] MEDS: carvediloL 6.25 MG TAB PO SCH (16:28)
[2022-09-26] MEDS ORDERED: carvediloL 6.25 MG TAB PO SCH (21:00)
[2022-09-27 07:44] LABS: INR 3.4 (0.9-1.1); Prothrombin Time 33.8 Seconds (9.0-12.0)
[2022-09-27 07:54] LABS: BUN Creatinine Ratio 18.9 (10-20); Creatinine Clr Calc Pharmacy 38.8 ml/min; Est GFR (African American) 18.2 ml/min; Est GFR (Non-African American) 15.7 ml/min; Potassium 3.7 mmol/L (3.5-5.1)
[2022-09-27] MEDS: PANTOprazole 40 MG TAB PO SCH ×2 (08:00→21:33)
[2022-09-27] MEDS: DOCUSATE SODIUM 100 MG CAP PO SCH ×2 (08:00→21:33)
[2022-09-27] MEDS: carvediloL 6.25 MG TAB PO SCH ×2 (08:00→15:39)
[2022-09-27] MEDS: FOLIC ACID 1 MG TAB PO SCH (08:00)
[2022-09-27] MEDS: CYANOCOBALAMIN (B-12) 100 MCG TABLET PO SCH (08:00)
--- NOTE | 2022-09-27 09:08 | Nephrology Progress Note ---
Date of Service September 27, 2022 Assessment & Plan (1) CHERYL (acute kidney injury): Plan: plateau'd recurrent nonoliguric acute kidney injury due to ischemic ATN in [facility] ng of acute blood loss anemia, obligate diuresis and in setting of what must now be considered at least CKD 3 if not CKD 4 at least given duration of abnormal creatinine. Admission creatinine of 3.6; reported baseline 1.4 though truthfully no clear baseline in this pt who came to [facility] in June; victor manuel 2.1 on 08/29 at admission and this may be his best baseline though we have not seen it in some time; plateau'd at 3 or 3.1 09/08-09/11 w/ abrupt worsening to peak at 5.4 09/13 which was his Second episode of significant CHERYL / peak creat 4.6 prior to arrival in [place] 06/2022. creatinine has been in mid 3s for most of past month though overall labile and would call this new baseline. UA inflamed but not infected. Given Severe Chronic Hypoxia he is very susceptible to CHERYL from diuretics Now plateau'd from third episode of CHERYL w/ peak creatinine 4.1 for now no fluid limit >Daily BMP and avoid nephrotoxins > cancelled all diuretic orders > continue to Hold BP lowering meds to allow for renal recovery except do agree w/ trial of coreg DISCHARGE RECOMMENDATIONS -d/c on no diuretics -recommend facility team check bmp at least weekly x 4, then monthly -recommend nephrology follow up in person preferred but may need to start with telehealth if in person not feasible > f/u w/ any physician provider at [facility] in 2-4 wks Admission and Anticipated Discharge Date Admission Date: August 29, 2022 Subjective no interval events. denies worse dypsnea, swelling, or pain. Review of Systems Review of Systems: All systems reviewed & are unremarkable except as noted in Subjective Physical Exam Constitutional: well developed, well nourished, + obese and cooperative; no acute distress Eyes: EOM intact bilaterally ENMT: Ears: no external ear abnormality Nose: no external nose abnormality Mouth: + dry oral mucous membranes Neck: no nuchal rigidity Respiratory: + labored breathing (slight); no respiratory distress Auscultation: lungs clear to auscultation bilaterally, + diminished lung sounds and + rhonchi Cardiovascular: Rate/Rhythm: regular rate, regular rhythm and + tachycardic Extremities: + edema (3+ pedal; trace dep; LUE edema) Gastrointestinal (Abdomen): Inspection/Auscultation: normal bowel sounds Percussion/Palpation: abdomen soft; abdomen nontender Musculoskeletal: Extremities: strength 5/5 throughout and + abnormal strength Skin: no rashes, warm and dry Psychiatric: Orientation: oriented x 3 Speech: normal rate/rhythm/volume of speech Results & Data ([facility]) Vital Signs (Past 12 Hours) Vital Signs Temp Pulse Pulse Resp BP Pulse Ox O2 Del Method 09/27/22 08:12 37.1 C 86 19 104/64 95 BiPAP 09/27/22 00:00 89 09/27/22 03:29 36.6 C 87 20 121/82 95 BiPAP 09/27/22 02:22 90 14 90 09/26/22 23:55 37.2 C 87 20 122/89 88 L BiPAP 09/26/22 23:25 22 94 O2 Flow Rate 09/27/22 08:12 09/27/22 00:00 09/27/22 03:29 3 09/27/22 02:22 4 09/26/22 23:55 3 09/26/22 23:25 4 Laboratory Results 09/26/22 06:46 09/27/22 07:17
--- NOTE | 2022-09-27 09:29 | Hospitalist Progress Note ---
Date of Service September 27, 2022 Assessment & Plan (1) CHERYL (acute kidney injury): (2) Anemia: (3) Acute GI bleeding: Plan Patient is a 56 yr male with H/O HTN, HLD, CKD [baseline creatinine 1.4], chronic anemia [baseline hemoglobin 9], morbid obesity, possible RUTH as per records, gout, rheumatoid arthritis, chronic back pain, medication noncompliance as per records, ongoing tobacco abuse presented to our ED 08/29/2022 with complaint of feeling sick for 3 days ago ANNEALER associated with nausea, vomiting, bloody diarrhea and increasing weakness. No recent antibiotic treatment. Patient was increasingly sleepy as per at presentation. Patient with hemoglobin of 5.9 at admission and received 2 units PRBC transfusion in the ED. Of note, patient moved back to [place] from [place] last June 2022, patient had 3 hospital confinements at [place] for kidney failure and hypoxia prior to return to [place] per his . CHERYL over CKD: --CT Abd:Abnormal imaging of kidneys (bilateral kidneys with intermediate density lesions likely hemorrhagic/proteinaceous cysts --Renal USD: No renal calculi or hydronephrosis or solid renal mass. Bilateral simple and complex renal cyst. Bilateral diffuse cortical thinning with decreased corticomedullary differentiation compatible with chronic medical renal disease. --Baseline creatinine of around 1.4 reported --Cr is 2.88> 4.14> 3.78 Appreciate Nephrology Input Monitor renal function Creatinine 3.9 today Continue to hold Lasix, verapamil Avoid nephrotoxic agents as able Restarted Coreg at low-dose as blood pressure better Discussed with nephrology in detail DISCHARGE RECOMMENDATIONS -d/c on no diuretics -BMP at least weekly x 4, then monthly -favor nephrology follow up if possible; in person preferred but may need to start with telehealth if in person not feasible > f/u w/ any physician provider at [facility] in 2-4 wks Metabolic encephalopathy - resolved Multifactorial likely secondary to respiratory failure/hypercarbia Possible OHS/untreated RUTH Nocturnal hypoxia Chronic resp failure w/ hypercapnia and Hypoxia 09/08-09/09 Nocturnal pulse oximetry with 9 desaturation events, time is spent in desaturation greater than 5 minutes and time spent with saturation less than 89% is 1 hour 28-minute. 09/09 AM ABG with PCO2 of 55. Needs BiPAP upon discharge. Noncompliant with BiPAP use intermittently Appreciate pulmonology input Needs sleep study as outpatient Continue BiPAP while sleeping and at bedtime Mental status back to baseline Acute on chronic anemia secondary to lower GI bleed Acute blood loss anemia Hb 5.9 on admission S/P 6 unit PRBC transfusion Iron level low --> s/p iron transfusion x 2. GI evaluated, status post EGD and colonoscopy. --08/31 EGD: No evidence of UGI bleeding, 2 duodenal polyps likely hyperplastic were biopsied with a cold forceps. --> HPE: 2 fragments of polypoid duodenal mucosa with nonspecific duodenitis. Negative for malignancy. --09/01 colonoscopy: The perianal and digital rectal exam were normal. A 10 mm polyp was found in the rectum which was removed with a cold snare and clips [MR conditional] were placed. HPE result is tubular adenoma, negative for high- grade dysplasia. Also diverticulosis in the sigmoid colon were noted. Nonbleeding internal hemorrhoids were noted. Recommendation is to repeat colonoscopy in 5 years for surveillance. Since no evidence of GI bleeding, recommended hematology evaluation. --09/01 peripheral smear: Reviewed FOBT negative, Ferritin > 700. Transfuse hemoglobin if less than 7 or for symptomatic anemia. Last transfusion on 09/02/22 Continue with folic acid and vitamin B12. Appreciate Hematology Input Repeat Ferritin level on 09/15 626 Continue pantoprazole. Monitor CBC Acute DVT: Per patient's , patient has not been mobile since October 2021 He used to be able to walk with cane prior to that. Patient was not on any pharmacological DVT prophylaxis initially because of GI bleed. Patient complained of left arm pain and was scanned for DVT on 09/05/2022 evening which came back positive for DVT in mid to distal left brachial vein. Also now has superficial clot in right UE INR remains supratherapeutic at 4.7>>4.3>3.7>3.0>2.8>3.2 Monitor INR Decreased Coumadin to 1mg daily Recommend INR check in 3 days and adjustment of warfarin as needed. Troponin elevation: Secondary to CHERYL Echo: Grossly normal LV chamber size. Grossly normal LV systolic function wi thout all wall segments able to be visualized. Denies chest pain Vitamin D deficiency Vit D level is <7 Started on Vit D 50,000 U weekly on 09/17/22 Other chronic medical conditions: Ongoing tobacco abuse, HTN, HLD, morbid obesity, gout/rheumatoid arthritis, chronic back pain, medication noncompliance DVT Px: Warfarin Code Status : Full code Admission and Anticipated Discharge Date Admission Date: August 29, 2022 Subjective Patient is seen in follow up of confusion, hypoxia, cheryl Patient is lying in bed, in no acute distress, on supplemental oxygen via nasal cannula Reports he uses BiPAP last night Reports no new complaints, overall feels well Denies any chest pain, dyspnea, dizziness Denies fevers chills abdominal pain nausea or vomiting Discussed with nephrology today. Patient likely has CKD at this point. Will need follow-up with nephrology and BMPs. Okay for discharge to [facility]. Review of Systems Review of Systems: All systems reviewed & are unremarkable except as noted in Subjective Physical Exam Physical Exam: Constitutional: Morbidly obese M in NAD, on NC Eyes: EOMI, PERRL. Conjunctivae are normal. Anicteric sclera. Neck: thick short neck Respiratory: No use of accessory muscles.Minimal crackles, no wheezing Cardiovascular: Regular rate and rhythm. No murmurs. No edema. Gastrointestinal: Normal bowel sounds, soft, obese nontender and nondistended. Musculoskeletal: Moves all extremities. Skin: No rashes, warm dry and intact. Neurologic: Speech fluent. Follows commands. Answers appropriately. Results & Data Results & Data ([facility]) Vital Signs (Past 12 Hours) Vital Signs Temp Pulse Pulse Resp BP Pulse Ox O2 Del Method 09/27/22 08:12 37.1 C 86 19 104/64 95 BiPAP 09/27/22 00:00 89 09/27/22 03:29 36.6 C 87 20 121/82 95 BiPAP 09/27/22 02:22 90 14 90 09/26/22 23:55 37.2 C 87 20 122/89 88 L BiPAP 09/26/22 23:25 22 94 O2 Flow Rate 09/27/22 08:12 09/27/22 00:00 09/27/22 03:29 3 09/27/22 02:22 4 09/26/22 23:55 3 09/26/22 23:25 4 Laboratory Results 09/27/22 09/27/22 Range/Units 07:17 07:17 PT 33.8 H (9.0-12.0) Seconds INR 3.4 H (0.9-1.1) Sodium 134 L (136-145) mmol/L Potassium 3.7 (3.5-5.1) mmol/L Chloride 94 L (98-107) mmol/L Carbon Dioxide 32 (21-32) mmol/L Anion Gap 8 (3-11) BUN 75 H (6-23) mg/dl Creatinine 3.97 H (0.6-1.4) mg/dl Est Cr Clr Drug Dosing 38.8 ml/min Est GFR ( Amer) 18.2 ml/min Est GFR (Non-Af Amer) 15.7 ml/min BUN/Creatinine Ratio 18.9 (10-20) Glucose 98 (70-99(Fasting)) mg/dl Calcium 10.0 (8.5-10.1) mg/dl Medications Administered Current Inpatient Medications Acetaminophen (Acetaminophen 325 Mg Tab) 650 mg PO Q4H PRN PRN Reason: Mild Pain or Fever Stop: 09/28/22 07:58 Last Admin: 09/19/22 08:23 Dose: 650 mg Carvedilol (Carvedilol 12.5 Mg Tab) 12.5 mg PO AMHS [facility] Stop: 10/21/22 08:59 Last Admin: 09/24/22 07:55 Dose: Not Given Carvedilol (Carvedilol 6.25 Mg Tab) 6.25 mg PO BIDM [facility] Stop: 10/26/22 16:59 Last Admin: 09/27/22 08:00 Dose: 6.25 mg Cyanocobalamin (Cyanocobalamin (B-12) 100 Mcg Tablet) 100 mcg PO QAM [facility] Stop: 10/06/22 08:59 Last Admin: 09/27/22 08:00 Dose: 100 mcg Docusate Sodium (Docusate Sodium 100 Mg Cap) 100 mg PO BID [facility] Stop: 10/05/22 10:59 Last Admin: 09/27/22 08:00 Dose: 100 mg Ergocalciferol (Ergocalciferol 50,000 Units 1250 Mcg Cap) 50,000 units PO Q7D@0800 [facility] Stop: 10/17/22 07:59 Last Admin: 09/24/22 07:55 Dose: 50,000 units Folic Acid (Folic Acid 1 Mg Tab) 1 mg PO QAM [facility] Stop: 10/02/22 11:59 Last Admin: 09/27/22 08:00 Dose: 1 mg Metoprolol Tartrate (Metoprolol Tartrate 1 Mg/Ml Vial) 2.5 mg IV Q6H PRN PRN Reason: HR > 110 Stop: 09/28/22 11:59 Miconazole Nitrate (Miconazole Nitrate Powder 43 Gm) 1 appln EXT PRN PRN PRN Reason: Affected Skin Folds Stop: 10/05/22 12:30 Last Admin: 09/18/22 20:16 Dose: 1 appln Ondansetron HCl (Ondansetron Inj 2 Mg/Ml 2 Ml Vial) 4 mg IV Q6H PRN PRN Reason: Nausea Stop: 10/05/22 10:41 Oxycodone HCl (Oxycodone Hcl Ir 5 Mg Tab (Immediate Release)) 5 mg PO Q6H PRN PRN Reason: moderate to severe pain Stop: 09/30/22 11:32 Last Admin: 09/26/22 22:40 Dose: 5 mg Pantoprazole Sodium (Pantoprazole 40 Mg Tab) 40 mg PO BID [facility] Stop: 10/08/22 20:59 Last Admin: 09/27/22 08:00 Dose: 40 mg Polyethylene Glycol (Polyethylene (Miralax) 17 Gm Pack) 17 gm PO DAILY PRN PRN Reason: Constipation Stop: 10/05/22 10:52 Verapamil HCl (Verapamil Hcl 240 Mg Tabcr) 240 mg PO QAM [facility] Stop: 09/28/22 08:59 Last Admin: 09/12/22 10:16 Dose: 240 mg Warfarin Sodium (Warfarin Sod 1 Mg Tab) 1 mg PO DAILY@1600 [facility] Stop: 10/26/22 15:59 Last Admin: 09/26/22 16:27 Dose: 1 mg
[2022-09-27] MEDS: oxyCODONE HCL IR 5 MG TAB (IMMEDIATE RELEASE) PO PRN ×2 (15:38→21:35)
[2022-09-27] MEDS: WARFARIN SOD 1 MG TAB PO SCH (15:38)
[2022-09-27] MEDS: ACETAMINOPHEN 325 MG TAB PO PRN (15:38)
[2022-09-28 07:01] LABS: Hematocrit (blood only) 27.7 % (40.1-51.0); Hemoglobin 8.5 g/dl (14.0-18.0); Mean Corpuscular Hemoglobin 28.4 pg (25.0-34.0); Mean Corpuscular Hgb Conc 30.7 g/dL (32.0-36.0); Mean Corpuscular Volume 92.6 fL (80.0-100.0); Mean Platelet Volume 10.1 fL (9.4-12.4); Platelet Count 371 K/uL (130-400); RDW Coefficient of Variation 15.8 % (11.5-14.5); Red Blood Count 2.99 M/uL (4.63-6.08)
[2022-09-28 07:40] LABS: BUN Creatinine Ratio 18.6 (10-20); Calcium 9.8 mg/dl (8.5-10.1); Creatinine Clr Calc Pharmacy 37.9 ml/min; Est GFR (African American) 17.9 ml/min; Est GFR (Non-African American) 15.4 ml/min; INR 3.3 (0.9-1.1); Phosphorus 4.5 mg/dl (2.5-4.9); Potassium 3.7 mmol/L (3.5-5.1); Prothrombin Time 33.3 Seconds (9.0-12.0)
[2022-09-28] MEDS: DOCUSATE SODIUM 100 MG CAP PO SCH ×2 (07:41→20:25)
[2022-09-28] MEDS: PANTOprazole 40 MG TAB PO SCH ×2 (07:41→20:25)
[2022-09-28] MEDS: CYANOCOBALAMIN (B-12) 100 MCG TABLET PO SCH (07:41)
[2022-09-28] MEDS: FOLIC ACID 1 MG TAB PO SCH (07:41)
[2022-09-28] MEDS: carvediloL 6.25 MG TAB PO SCH ×2 (07:41→17:29)
--- NOTE | 2022-09-28 09:23 | Nephrology Progress Note ---
Date of Service September 28, 2022 Assessment & Plan (1) CHERYL (acute kidney injury): Plan: plateau'd recurrent nonoliguric stage 1 acute kidney injury due to ischemic ATN in setting of acute blood loss anemia, obligate diuresis and in setting of what must now be considered most likely CKD 4 given duration of abnormal creatinine. Admission creatinine of 3.6; reported baseline 1.4 though truthfully no clear baseline in this pt who came to [facility] in June; victor manuel 2.1 on 08/29 at admission and this may be his best baseline though we have not seen it in some time; plateau'd at 3 or 3.1 09/08-09/11 w/ abrupt worsening to peak at 5.4 09/13 which was his Second episode of significant CHERYL / peak creat 4.6 prior to arrival in [place] 06/2022. creatinine has been in mid 3s for most of past month though overall labile and would call this new baseline. UA inflamed but not infected. Given Severe Chronic Hypoxia he is very susceptible to CHERYL from diuretics Now plateau'd from third episode of CHERYL w/ peak creatinine 4.1 for now no fluid limit >Daily BMP and avoid nephrotoxins > hold all diuretics > continue to Hold BP lowering meds to allow for renal recovery except do agree w/ trial of coreg -if no improvement, may need UACM and/or repeat imaging >will check uacm, prot/creat > no need to await results before d/c however; these will be most useful for f/u DISCHARGE RECOMMENDATIONS updated 09/28 -d/c on no diuretics -recommend facility team check bmp at least weekly x 4, then monthly -recommend nephrology follow up in person preferred but may need to start with telehealth if in person not feasible > f/u w/ any physician provider at [facility] in 2-4 wks (2) CKD (chronic kidney disease) stage 4, GFR 15-29 ml/min: Plan: believe his new baseline creatinine is unfortunately in 3s, for CKD 4. did update him on this. -will continue to follow as OP -at upper limit of his baseline -f/u as above Admission and Anticipated Discharge Date Admission Date: August 29, 2022 Subjective no interval clinical events. c/o chills, feeling cold. no n/v, no change in breathing, chronic pain/immobility unchanged Review of Systems Review of Systems: All systems reviewed & are unremarkable except as noted in Subjective Physical Exam Constitutional: well developed, well nourished, + obese and cooperative; no acute distress Eyes: EOM intact bilaterally ENMT: Ears: no external ear abnormality Nose: no external nose abnormality Mouth: + dry oral mucous membranes Neck: no nuchal rigidity Respiratory: normal respiratory effort; no respiratory distress Auscultation: lungs clear to auscultation bilaterally and + diminished lung sounds Cardiovascular: Rate/Rhythm: regular rate, regular rhythm and + tachycardic Extremities: + edema (3+ pedal; trace dep; LUE edema) Gastrointestinal (Abdomen): Inspection/Auscultation: normal bowel sounds Percussion/Palpation: abdomen soft; abdomen nontender Musculoskeletal: Extremities: + abnormal strength Skin: no rashes, warm and dry Psychiatric: Orientation: oriented x 3 Speech: normal rate/rhythm/volume of speech Results & Data ([facility]) Vital Signs (Past 12 Hours) Vital Signs Temp Pulse Pulse Resp BP Pulse Ox O2 Del Method 09/28/22 07:25 36.8 C 84 24 121/56 L 96 Nasal Cannula 09/28/22 02:44 81 18 118/66 96 Nasal Cannula 09/27/22 23:00 76 09/27/22 22:52 37.1 C 79 18 105/66 97 Nasal Cannula O2 Flow Rate 09/28/22 07:25 2.5 09/28/22 02:44 09/27/22 23:00 09/27/22 22:52 3 Laboratory Results 09/28/22 06:26 09/28/22 06:26
[2022-09-28] MEDS: oxyCODONE HCL IR 5 MG TAB (IMMEDIATE RELEASE) PO PRN ×2 (10:00→15:52)
--- NOTE | 2022-09-28 11:05 | Hospitalist Progress Note ---
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 No recent antibiotic treatment. Patient was increasingly sleepy as per at presentation. Patient with hemoglobin of 5.9 at admission and received 2 units PRBC transfusion in the ED. Of note, patient moved back to [place] from [place] last June 2022, patient had 3 hospital confinements at [place] for kidney failure and hypoxia prior to return to [place] per his . CHERYL over CKD: --CT Abd:Abnormal imaging of kidneys (bilateral kidneys with intermediate density lesions likely hemorrhagic/proteinaceous cysts --Renal USD: No renal calculi or hydronephrosis or solid renal mass. Bilateral simple and complex renal cyst. Bilateral diffuse cortical thinning with decreased corticomedullary differentiation compatible with chronic medical renal disease. --Baseline creatinine of around 1.4 reported --Cr is 2.88> 4.14> 4 Appreciate Nephrology Input Monitor renal function Creatinine 4 today Continue to hold Lasix, verapamil Avoid nephrotoxic agents as able Restarted Coreg at low-dose as blood pressure better Discussed with nephrology in detail DISCHARGE RECOMMENDATIONS -d/c on no diuretics -BMP at least weekly x 4, then monthly -favor nephrology follow up if possible; in person preferred but may need to start with telehealth if in person not feasible > f/u w/ any physician provider at [facility] in 2-4 wks Metabolic encephalopathy - resolved Multifactorial likely secondary to respiratory failure/hypercarbia Possible OHS/untreated RUTH Nocturnal hypoxia Chronic resp failure w/ hypercapnia and Hypoxia 09/08-09/09 Nocturnal pulse oximetry with 9 desaturation events, time is spent in desaturation greater than 5 minutes and time spent with saturation less than 89% is 1 hour 28-minute. 09/09 AM ABG with PCO2 of 55. Needs BiPAP upon discharge. Noncompliant with BiPAP use intermittently Appreciate pulmonology input Needs sleep study as outpatient Continue BiPAP while sleeping and at bedtime Mental status back to baseline Acute on chronic anemia secondary to lower GI bleed Acute blood loss anemia Hb 5.9 on admission S/P 6 unit PRBC transfusion Iron level low --> s/p iron transfusion x 2. GI evaluated, status post EGD and colonoscopy. --08/31 EGD: No evidence of UGI bleeding, 2 duodenal polyps likely hyperplastic were biopsied with a cold forceps. --> HPE: 2 fragments of polypoid duodenal mucosa with nonspecific duodenitis. Negative for malignancy. --09/01 colonoscopy: The perianal and digital rectal exam were normal. A 10 mm polyp was found in the rectum which was removed with a cold snare and clips [MR conditional] were placed. HPE result is tubular adenoma, negative for high- grade dysplasia. Also diverticulosis in the sigmoid colon were noted. Nonbleeding internal hemorrhoids were noted. Recommendation is to repeat colonoscopy in 5 years for surveillance. Since no evidence of GI bleeding, recommended hematology evaluation. --09/01 peripheral smear: Reviewed FOBT negative, Ferritin > 700. Transfuse hemoglobin if less than 7 or for symptomatic anemia. Last transfusion on 09/02/22 Continue with folic acid and vitamin B12. Appreciate Hematology Input Repeat Ferritin level on 09/15 626 Continue pantoprazole. Monitor CBC Acute DVT: Per patient's , patient has not been mobile since October 2021 He used to be able to walk with cane prior to that. Patient was not on any pharmacological DVT prophylaxis initially because of GI bleed. Patient complained of left arm pain and was scanned for DVT on 09/05/2022 evening which came back positive for DVT in mid to distal left brachial vein. Also now has superficial clot in right UE INR remains supratherapeutic at 4.7>>4.3>3.7>3.0>2.8>3.2 Monitor INR Decreased Coumadin to 1mg daily Recommend INR check in 3 days and adjustment of warfarin as needed. Troponin elevation: Secondary to CHERYL Echo: Grossly normal LV chamber size. Grossly normal LV systolic function without all wall segments able to be visualized. Denies chest pain Vitamin D deficiency Vit D level is <7 Started on Vit D 50,000 U weekly on 09/17/22 Other chronic medical conditions: Ongoing tobacco abuse, HTN, HLD, morbid obesity, gout/rheumatoid arthritis, chronic back pain, medication noncompliance DVT Px: Warfarin Code Status : Full code Admission and Anticipated Discharge Date Admission Date: August 29, 2022 Subjective Patient is seen in follow up of confusion, hypoxia, cheryl Patient is lying in bed, in no acute distress, on supplemental oxygen via nasal cannula Reports he used BiPAP last night for little bit Currently patient's RN and wound care nurse at the bedside Pt reports no new complaints, denies any chest pain, dyspnea, dizziness Denies fevers chills abdominal pain nausea or vomiting Discussed with nephrology again today. Patient likely has CKD at this point. Will need follow-up with nephrology and BMPs. Okay for discharge to [facility]. Review of Systems 2 Review of Systems: All systems reviewed & are unremarkable except as noted in Subjective Physical Exam Physical Exam: Constitutional: Morbidly obese M in NAD, on NC Eyes: EOMI, PERRL. Conjunctivae are normal. Anicteric sclera. Neck: thick short neck Respiratory: No use of accessory muscles.Minimal crackles, no wheezing Cardiovascular: Regular rate and rhythm. No murmurs. No edema. Gastrointestinal: Normal bowel sounds, soft, obese nontender and nondistended. Musculoskeletal: Moves all extremities. Skin: No rashes, warm dry and intact. Neurologic: Speech fluent. Follows commands. Answers appropriately. Results & Data Results & Data ([facility]) Vital Signs (Past 12 Hours) Vital Signs Temp Pulse Resp BP Pulse Ox O2 Del Method O2 Flow Rate 09/28/22 07:25 36.8 C 84 24 121/56 L 96 Nasal Cannula 2.5 09/28/22 02:44 81 18 118/66 96 Nasal Cannula Laboratory Results 09/28/22 09/28/22 09/28/22 Range/Units 06:26 06:26 06:26 WBC 7.90 (4.8-10.8) K/ul RBC 2.99 L (4.63-6.08) M/uL Hgb 8.5 L (14.0-18.0) g/dl Hct 27.7 L (40.1-51.0) % MCV 92.6 (80.0-100.0) fL MCH 28.4 (25.0-34.0) pg MCHC 30.7 L (32.0-36.0) g/dL RDW Std Deviation 53.0 H (36.4-46.3) fL RDW Coeff of Cheryl 15.8 H (11.5-14.5) % Plt Count 371 (130-400) K/uL MPV 10.1 (9.4-12.4) fL PT 33.3 H (9.0-12.0) Seconds INR 3.3 H (0.9-1.1) Sodium 135 L (136-145) mmol/L Potassium 3.7 (3.5-5.1) mmol/L Chloride 96 L (98-107) mmol/L Carbon Dioxide 32 (21-32) mmol/L Anion Gap 7 (3-11) BUN 75 H (6-23) mg/dl Creatinine 4.03 H (0.6-1.4) mg/dl Est Cr Clr Drug Dosing 37.9 ml/min Est GFR ( Amer) 17.9 ml/min Est GFR (Non-Af Amer) 15.4 ml/min BUN/Creatinine Ratio 18.6 (10-20) Glucose 92 (70-99(Fasting)) mg/dl Calcium 9.8 (8.5-10.1) mg/dl Phosphorus 4.5 (2.5-4.9) mg/dl Magnesium 2.0 (1.7-2.4) mg/dl Medications Administered Current Inpatient Medications Carvedilol (Carvedilol 12.5 Mg Tab) 12.5 mg PO AMHS [facility] Stop: 10/21/22 08:59 Last Admin: 09/24/22 07:55 Dose: Not Given Carvedilol (Carvedilol 6.25 Mg Tab) 6.25 mg PO BIDM [facility] Stop: 10/26/22 16:59 Last Admin: 09/28/22 07:41 Dose: 6.25 mg Cyanocobalamin (Cyanocobalamin (B-12) 100 Mcg Tablet) 100 mcg PO QAM [facility] Stop: 10/06/22 08:59 Last Admin: 09/28/22 07:41 Dose: 100 mcg Docusate Sodium (Docusate Sodium 100 Mg Cap) 100 mg PO BID [facility] Stop: 10/05/22 10:59 Last Admin: 09/28/22 07:41 Dose: 100 mg Ergocalciferol (Ergocalciferol 50,000 Units 1250 Mcg Cap) 50,000 units PO Q7D@0800 [facility] Stop: 10/17/22 07:59 Last Admin: 09/24/22 07:55 Dose: 50,000 units Folic Acid (Folic Acid 1 Mg Tab) 1 mg PO QAM [facility] Stop: 10/02/22 11:59 Last Admin: 09/28/22 07:41 Dose: 1 mg Metoprolol Tartrate (Metoprolol Tartrate 1 Mg/Ml Vial) 2.5 mg IV Q6H PRN PRN Reason: HR > 110 Stop: 09/28/22 11:59 Miconazole Nitrate (Miconazole Nitrate Powder 43 Gm) 1 appln EXT PRN PRN PRN Reason: Affected Skin Folds Stop: 10/05/22 12:30 Last Admin: 09/18/22 20:16 Dose: 1 appln Ondansetron HCl (Ondansetron Inj 2 Mg/Ml 2 Ml Vial) 4 mg IV Q6H PRN PRN Reason: Nausea Stop: 10/05/22 10:41 Oxycodone HCl (Oxycodone Hcl Ir 5 Mg Tab (Immediate Release)) 5 mg PO Q6H PRN PRN Reason: moderate to severe pain Stop: 09/30/22 11:32 Last Admin: 09/28/22 10:00 Dose: 5 mg Pantoprazole Sodium (Pantoprazole 40 Mg Tab) 40 mg PO BID [facility] Stop: 10/08/22 20:59 Last Admin: 09/28/22 07:41 Dose: 40 mg Polyethylene Glycol (Polyethylene (Miralax) 17 Gm Pack) 17 gm PO DAILY PRN PRN Reason: Constipation Stop: 10/05/22 10:52 Warfarin Sodium (Warfarin Sod 1 Mg Tab) 1 mg PO DAILY@1600 [facility] Stop: 10/26/22 15:59 Last Admin: 09/27/22 15:38 Dose: 1 mg
[2022-09-28 16:42] LABS: Appearance Urine Turbid (Clear); Bilirubin Urine Negative (Negative); Blood Urine 3+ (Negative); Color Urine Yellow; Glucose Urine UA Negative (Negative); Ketones Urine Negative (Negative); Leukocyte Esterase Urine 3+ (Negative); Nitrite Urine Negative (Negative); Protein Urine 1+ (Negative); Specific Gravity Urine 1.014 (1.000-1.030); Urobilinogen Urine Negative (Negative); WBC Urine Automated >30 /hpf (0-5)
[2022-09-28 16:53] LABS: Bacteria Urine Automated 1+ (Negative)
[2022-09-28 16:58] LABS: Creatinine Urine Random 169.2 mg/dl; Protein Creatinine Ratio Urine 0.4 (0-0.2); Total Protein Urine Random 64.9 mg/dl (0-11.9)
[2022-09-29 08:07] LABS: Hematocrit (blood only) 28.7 % (40.1-51.0); Hemoglobin 8.7 g/dl (14.0-18.0); Mean Corpuscular Hemoglobin 28.3 pg (25.0-34.0); Mean Corpuscular Hgb Conc 30.3 g/dL (32.0-36.0); Mean Corpuscular Volume 93.5 fL (80.0-100.0); Mean Platelet Volume 9.4 fL (9.4-12.4); Platelet Count 335 K/uL (130-400); RDW Coefficient of Variation 15.9 % (11.5-14.5); RDW Standard Deviation 54.4 fL (36.4-46.3); Red Blood Count 3.07 M/uL (4.63-6.08); White Blood Count 7.88 K/ul (4.8-10.8)
[2022-09-29 08:32] LABS: BUN Creatinine Ratio 18.5 (10-20); Creatinine Clr Calc Pharmacy 38.2 ml/min; Est GFR (African American) 18.3 ml/min; Est GFR (Non-African American) 15.8 ml/min; Potassium 3.7 mmol/L (3.5-5.1)
[2022-09-29 08:39] LABS: INR 3.8 (0.9-1.1); Prothrombin Time 37.7 Seconds (9.0-12.0)
--- NOTE | 2022-09-29 09:10 | Hospitalist Progress Note ---
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 No recent antibiotic treatment. Patient was increasingly sleepy as per at presentation. Patient with hemoglobin of 5.9 at admission and received 2 units PRBC transfusion in the ED. Of note, patient moved back to [place] from [place] last June 2022, patient had 3 hospital confinements at [place] for kidney failure and hypoxia prior to return to [place] per his . CHERYL over CKD: --CT Abd:Abnormal imaging of kidneys (bilateral kidneys with intermediate density lesions likely hemorrhagic/proteinaceous cysts --Renal USD: No renal calculi or hydronephrosis or solid renal mass. Bilateral simple and complex renal cyst. Bilateral diffuse cortical thinning with decreased corticomedullary differentiation compatible with chronic medical renal disease. --Baseline creatinine of around 1.4 reported --Cr is 2.88> 4.14> 3.9 Appreciate Nephrology Input Monitor renal function Creatinine 3.9 today Continue to hold Lasix, verapamil Avoid nephrotoxic agents as able Restarted Coreg at low-dose as blood pressure better Discussed with nephrology in detail DISCHARGE RECOMMENDATIONS -d/c on no diuretics -BMP at least weekly x 4, then monthly -favor nephrology follow up if possible; in person preferred but may need to start with telehealth if in person not feasible > f/u w/ any physician provider [facility] in 2-4 wks Metabolic encephalopathy - resolved Multifactorial likely secondary to respiratory failure/hypercarbia Possible OHS/untreated RUTH Nocturnal hypoxia Chronic resp failure w/ hypercapnia and Hypoxia 09/08-09/09 Nocturnal pulse oximetry with 9 desaturation events, time is spent in desaturation greater than 5 minutes and time spent with saturation less than 89% is 1 hour 28-minute. 09/09 AM ABG with PCO2 of 55. Needs BiPAP upon discharge. Noncompliant with BiPAP use intermittently Appreciate pulmonology input Needs sleep study as outpatient Continue BiPAP while sleeping and at bedtime Mental status back to baseline Acute on chronic anemia secondary to lower GI bleed Acute blood loss anemia Hb 5.9 on admission S/P 6 unit PRBC transfusion Iron level low --> s/p iron transfusion x 2. GI evaluated, status post EGD and colonoscopy. --08/31 EGD: No evidence of UGI bleeding, 2 duodenal polyps likely hyperplastic were biopsied with a cold forceps. --> HPE: 2 fragments of polypoid duodenal mucosa with nonspecific duodenitis. Negative for malignancy. --09/01 colonoscopy: The perianal and digital rectal exam were normal. A 10 mm polyp was found in the rectum which was removed with a cold snare and clips [MR conditional] were placed. HPE result is tubular adenoma, negative for high- grade dysplasia. Also diverticulosis in the sigmoid colon were noted. Nonbleeding internal hemorrhoids were noted. Recommendation is to repeat colonoscopy in 5 years for surveillance. Since no evidence of GI bleeding, recommended hematology evaluation. --09/01 peripheral smear: Reviewed FOBT negative, Ferritin > 700. Transfuse hemoglobin if less than 7 or for symptomatic anemia. Last transfusion on 09/02/22 Continue with folic acid and vitamin B12. Appreciate Hematology Input Repeat Ferritin level on 09/15 626 Continue pantoprazole. Monitor CBC Acute DVT: Per patient's , patient has not been mobile since October 2021 He used to be able to walk with cane prior to that. Patient was not on any pharmacological DVT prophylaxis initially because of GI bleed. Patient complained of left arm pain and was scanned for DVT on 09/05/2022 evening which came back positive for DVT in mid to distal left brachial vein. Also now has superficial clot in right UE INR remains supratherapeutic at 4.7>>4.3>3.7>3.0>2.8>3.8 Monitor INR Decreased Coumadin to 1mg daily- however now on hold as INR supratherap. Recommend INR check in 3 days and adjustment of warfarin as needed. Troponin elevation: Secondary to CHERYL Echo: Grossly normal LV chamber size. Grossly normal LV systolic function without all wall segments able to be visualized. Denies chest pain Vitamin D deficiency Vit D level is <7 Started on Vit D 50,000 U weekly on 09/17/22 Other chronic medical conditions: Ongoing tobacco abuse, HTN, HLD, morbid obesity, gout/rheumatoid arthritis, chronic back pain, medication noncompliance DVT Px: Warfarin Code Status : Full code Admission and Anticipated Discharge Date Admission Date: August 29, 2022 Subjective Patient is seen in follow up of confusion, hypoxia, cheryl/ ckd Patient is lying in bed, in no acute distress, on supplemental oxygen via nasal cannula Pt reports no new complaints, denies any chest pain, dyspnea, dizziness Denies fevers chills abdominal pain nausea or vomiting Discussed with nephrology - patient likely has CKD at this point. Will need follow-up with nephrology and BMPs. Okay for discharge to [facility]. Review of Systems Review of Systems: All systems reviewed & are unremarkable except as noted in Subjective Physical Exam Physical Exam: Constitutional: Morbidly obese M in NAD, on NC Eyes: EOMI, PERRL. Conjunctivae are normal. Anicteric sclera. Neck: thick short neck Respiratory: No use of accessory muscles.Minimal crackles, no wheezing Cardiovascular: Regular rate and rhythm. No murmurs. No edema. Gastrointestinal: Normal bowel sounds, soft, obese nontender and nondistended. Musculoskeletal: Moves all extremities. Skin: No rashes, warm dry and intact. Neurologic: Speech fluent. Follows commands. Answers appropriately. Results & Data Results & Data ([facility]) Vital Signs (Past 12 Hours) Vital Signs Temp Pulse Pulse Resp BP Pulse Ox O2 Del Method 09/29/22 07:47 81/50 L 09/29/22 07:47 83 09/29/22 07:45 36.8 C 83 20 79/53 L 94 Nasal Cannula 09/29/22 04:26 37.0 C 87 18 106/62 96 Nasal Cannula 09/29/22 00:00 61 09/28/22 22:30 Nasal Cannula 09/28/22 22:52 37.2 C 79 20 100/73 96 CPAP 09/28/22 22:36 83 25 H 98 O2 Flow Rate 09/29/22 07:47 09/29/22 07:47 09/29/22 07:45 4 09/29/22 04:26 4.0 09/29/22 00:00 09/28/22 22:30 09/28/22 22:52 09/28/22 22:36 3 Laboratory Results 09/29/22 09/29/22 09/29/22 Range/Units 07:58 07:58 07:58 WBC 7.88 (4.8-10.8) K/ul RBC 3.07 L (4.63-6.08) M/uL Hgb 8.7 L (14.0-18.0) g/dl Hct 28.7 L (40.1-51.0) % MCV 93.5 (80.0-100.0) fL MCH 28.3 (25.0-34.0) pg MCHC 30.3 L (32.0-36.0) g/dL RDW Std Deviation 54.4 H (36.4-46.3) fL RDW Coeff of Cheryl 15.9 H (11.5-14.5) % Plt Count 335 (130-400) K/uL MPV 9.4 (9.4-12.4) fL PT 37.7 H (9.0-12.0) Seconds INR 3.8 H (0.9-1.1) Sodium 134 L (136-145) mmol/L Potassium 3.7 (3.5-5.1) mmol/L Chloride 96 L (98-107) mmol/L Carbon Dioxide 32 (21-32) mmol/L Anion Gap 6 (3-11) BUN 73 H (6-23) mg/dl Creatinine 3.95 H (0.6-1.4) mg/dl Est Cr Clr Drug Dosing 38.2 ml/min Est GFR ( Amer) 18.3 ml/min Est GFR (Non-Af Amer) 15.8 ml/min BUN/Creatinine Ratio 18.5 (10-20) Glucose 88 (70-99(Fasting)) mg/dl Calcium 10.0 (8.5-10.1) mg/dl Urine Color Urine Appearance (Clear) Urine pH (4.5-7.5) Ur Specific [place] (1.000-1.030) Urine Protein (Negative) Urine Glucose (UA) (Negative) Urine Ketones (Negative) Urine Blood (Negative) Urine Nitrite (Negative) Urine Bilirubin (Negative) Urine Urobilinogen (Negative) Ur Leukocyte Esterase (Negative) Urine WBC (Auto) (0-5) /hpf Urine RBC (Auto) (0-4) /hpf U Hyaline Cast (Auto) (0-5) /lpf U Epithel Cells (Auto) (0-5) /lpf Urine Bacteria (Auto) (Negative) Urine Crystals Urine Yeast (None Prsent) Ur Random Creatinine mg/dl U Random Total Protein (0-11.9) mg/dl Protein/Creatinin Ratio (0-0.2) 09/28/22 09/28/22 Range/Units 15:30 15:30 WBC (4.8-10.8) K/ul RBC (4.63-6.08) M/uL Hgb (14.0-18.0) g/dl Hct (40.1-51.0) % MCV (80.0-100.0) fL MCH (25.0-34.0) pg MCHC (32.0-36.0) g/dL RDW Std Deviation (36.4-46.3) fL RDW Coeff of Cheryl (11.5-14.5) % Plt Count (130-400) K/uL MPV (9.4-12.4) fL PT (9.0-12.0) Seconds INR (0.9-1.1) Sodium (136-145) mmol/L Potassium (3.5-5.1) mmol/L Chloride (98-107) mmol/L Carbon Dioxide (21-32) mmol/L Anion Gap (3-11) BUN (6-23) mg/dl Creatinine (0.6-1.4) mg/dl Est Cr Clr Drug Dosing ml/min Est GFR ( Amer) ml/min Est GFR (Non-Af Amer) ml/min BUN/Creatinine Ratio (10-20) Glucose (70-99(Fasting)) mg/dl Calcium (8.5-10.1) mg/dl Urine Color Yellow Urine Appearance Turbid A (Clear) Urine pH 5.0 (4.5-7.5) Ur Specific [place] 1.014 (1.000-1.030) Urine Protein 1+ H (Negative) Urine Glucose (UA) Negative (Negative) Urine Ketones Negative (Negative) Urine Blood 3+ H (Negative) Urine Nitrite Negative (Negative) Urine Bilirubin Negative (Negative) Urine Urobilinogen Negative (Negative) Ur Leukocyte Esterase 3+ H (Negative) Urine WBC (Auto) >30 H (0-5) /hpf Urine RBC (Auto) 5-10 H (0-4) /hpf U Hyaline Cast (Auto) 1-5 (0-5) /lpf U Epithel Cells (Auto) 10-20 H (0-5) /lpf Urine Bacteria (Auto) 1+ H (Negative) Urine Crystals Not Reportable Urine Yeast Present A (None Prsent) Ur Random Creatinine 169.2 mg/dl U Random Total Protein 64.9 H (0-11.9) mg/dl Protein/Creatinin Ratio 0.4 H (0-0.2) Medications Administered Current Inpatient Medications Carvedilol (Carvedilol 12.5 Mg Tab) 12.5 mg PO AMHS [facility] Stop: 10/21/22 08:59 Last Admin: 09/24/22 07:55 Dose: Not Given Carvedilol (Carvedilol 6.25 Mg Tab) 6.25 mg PO BIDM [facility] Stop: 10/26/22 16:59 Last Admin: 09/28/22 17:29 Dose: 6.25 mg Cyanocobalamin (Cyanocobalamin (B-12) 100 Mcg Tablet) 100 mcg PO QAM [facility] Stop: 10/06/22 08:59 Last Admin: 09/28/22 07:41 Dose: 100 mcg Docusate Sodium (Docusate Sodium 100 Mg Cap) 100 mg PO BID [facility] Stop: 10/05/22 10:59 Last Admin: 09/28/22 20:25 Dose: 100 mg Ergocalciferol (Ergocalciferol 50,000 Units 1250 Mcg Cap) 50,000 units PO Q7D@0800 [facility] Stop: 10/17/22 07:59 Last Admin: 09/24/22 07:55 Dose: 50,000 units Folic Acid (Folic Acid 1 Mg Tab) 1 mg PO QAM [facility] Stop: 10/02/22 11:59 Last Admin: 09/28/22 07:41 Dose: 1 mg Miconazole Nitrate (Miconazole Nitrate Powder 43 Gm) 1 appln EXT PRN PRN PRN Reason: Affected Skin Folds Stop: 10/05/22 12:30 Last Admin: 09/18/22 20:16 Dose: 1 appln Ondansetron HCl (Ondansetron Inj 2 Mg/Ml 2 Ml Vial) 4 mg IV Q6H PRN PRN Reason: Nausea Stop: 10/05/22 10:41 Oxycodone HCl (Oxycodone Hcl Ir 5 Mg Tab (Immediate Release)) 5 mg PO Q6H PRN PRN Reason: moderate to severe pain Stop: 09/30/22 11:32 Last Admin: 09/28/22 15:52 Dose: 5 mg Pantoprazole Sodium (Pantoprazole 40 Mg Tab) 40 mg PO BID [facility] Stop: 10/08/22 20:59 Last Admin: 09/28/22 20:25 Dose: 40 mg Polyethylene Glycol (Polyethylene (Miralax) 17 Gm Pack) 17 gm PO DAILY PRN PRN Reason: Constipation Stop: 10/05/22 10:52 Warfarin Sodium (Warfarin Sod 1 Mg Tab) 1 mg PO DAILY@1600 [facility] Stop: 10/26/22 15:59 Last Admin: 09/27/22 15:38 Dose: 1 mg
[2022-09-29] MEDS: PANTOprazole 40 MG TAB PO SCH ×2 (09:24→21:20)
[2022-09-29] MEDS: FOLIC ACID 1 MG TAB PO SCH (09:25)
[2022-09-29] MEDS: CYANOCOBALAMIN (B-12) 100 MCG TABLET PO SCH (09:25)
[2022-09-29] MEDS: carvediloL 6.25 MG TAB PO SCH ×2 (09:25→16:56)
[2022-09-29] MEDS: DOCUSATE SODIUM 100 MG CAP PO SCH ×2 (09:25→21:20)
[2022-09-30 07:04] LABS: Hematocrit (blood only) 28.8 % (40.1-51.0); Hemoglobin 8.7 g/dl (14.0-18.0); Mean Corpuscular Hemoglobin 28.2 pg (25.0-34.0); Mean Corpuscular Hgb Conc 30.2 g/dL (32.0-36.0); Mean Corpuscular Volume 93.2 fL (80.0-100.0); Mean Platelet Volume 9.6 fL (9.4-12.4); Nucleated RBC # (auto) 0.02 K/uL (0-0); Nucleated RBC % (auto) 0.3 %; Platelet Count 337 K/uL (130-400); RDW Coefficient of Variation 15.7 % (11.5-14.5); RDW Standard Deviation 53.1 fL (36.4-46.3); Red Blood Count 3.09 M/uL (4.63-6.08); White Blood Count 6.88 K/ul (4.8-10.8)
[2022-09-30 07:27] LABS: BUN Creatinine Ratio 18.4 (10-20); Calcium 10.1 mg/dl (8.5-10.1); Creatinine Clr Calc Pharmacy 38.6 ml/min; Est GFR (African American) 18.5 ml/min; Est GFR (Non-African American) 15.9 ml/min; Potassium 4.2 mmol/L (3.5-5.1)
[2022-09-30 07:28] LABS: INR 4.4 (0.9-1.1); Prothrombin Time 43.3 Seconds (9.0-12.0)
[2022-09-30] MEDS: FOLIC ACID 1 MG TAB PO SCH (09:12)
[2022-09-30] MEDS: carvediloL 6.25 MG TAB PO SCH ×2 (09:12→17:34)
[2022-09-30] MEDS: DOCUSATE SODIUM 100 MG CAP PO SCH ×2 (09:12→21:00)
[2022-09-30] MEDS: CYANOCOBALAMIN (B-12) 100 MCG TABLET PO SCH (09:12)
[2022-09-30] MEDS: PANTOprazole 40 MG TAB PO SCH ×2 (09:12→21:00)
--- NOTE | 2022-09-30 09:45 | Hospitalist Progress Note ---
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 No recent antibiotic treatment. Patient was increasingly sleepy as per at presentation. Patient with hemoglobin of 5.9 at admission and received 2 units PRBC transfusion in the ED. Of note, patient moved back to [place] from [place] last June 2022, patient had 3 hospital confinements at [place] for kidney failure and hypoxia prior to return to [place] per his . CHERYL over CKD: --CT Abd:Abnormal imaging of kidneys (bilateral kidneys with intermediate density lesions likely hemorrhagic/proteinaceous cysts --Renal USD: No renal calculi or hydronephrosis or solid renal mass. Bilateral simple and complex renal cyst. Bilateral diffuse cortical thinning with decreased corticomedullary differentiation compatible with chronic medical renal disease. --Baseline creatinine of around 1.4 reported --Cr is 2.88> 4.14> 3.9 Appreciate Nephrology Input Monitor renal function Creatinine 3.9 today Continue to hold Lasix, verapamil Avoid nephrotoxic agents as able Restarted Coreg at low-dose as blood pressure better Discussed with nephrology in detail DISCHARGE RECOMMENDATIONS -d/c on no diuretics -BMP at least weekly x 4, then monthly -favor nephrology follow up if possible; in person preferred but may need to start with telehealth if in person not feasible > f/u w/ any physician provider at [facility] [place] in 2-4 wks Metabolic encephalopathy - resolved Multifactorial likely secondary to respiratory failure/hypercarbia Possible OHS/untreated RUTH Nocturnal hypoxia Chronic resp failure w/ hypercapnia and Hypoxia 09/08-09/09 Nocturnal pulse oximetry with 9 desaturation events, time is spent in desaturation greater than 5 minutes and time spent with saturation less than 89% is 1 hour 28-minute. 09/09 AM ABG with PCO2 of 55. Needs BiPAP upon discharge. Noncompliant with BiPAP use intermittently Appreciate pulmonology input Needs sleep study as outpatient Continue BiPAP while sleeping and at bedtime Mental status back to baseline Acute on chronic anemia secondary to lower GI bleed Acute blood loss anemia Hb 5.9 on admission S/P 6 unit PRBC transfusion Iron level low --> s/p iron transfusion x 2. GI evaluated, status post EGD and colonoscopy. --08/31 EGD: No evidence of UGI bleeding, 2 duodenal polyps likely hyperplastic were biopsied with a cold forceps. --> HPE: 2 fragments of polypoid duodenal mucosa with nonspecific duodenitis. Negative for malignancy. --09/01 colonoscopy: The perianal and digital rectal exam were normal. A 10 mm polyp was found in the rectum which was removed with a cold snare and clips [MR conditional] were placed. HPE result is tubular adenoma, negative for high- grade dysplasia. Also diverticulosis in the sigmoid colon were noted. Nonbleeding internal hemorrhoids were noted. Recommendation is to repeat colonoscopy in 5 years for surveillance. Since no evidence of GI bleeding, recommended hematology evaluation. --09/01 peripheral smear: Reviewed FOBT negative, Ferritin > 700. Transfuse hemoglobin if less than 7 or for symptomatic anemia. Last transfusion on 09/02/22 Continue with folic acid and vitamin B12. Appreciate Hematology Input Repeat Ferritin level on 09/15 626 Continue pantoprazole. Monitor CBC Acute DVT: Per patient's , patient has not been mobile since October 2021 He used to be able to walk with cane prior to that. Patient was not on any pharmacological DVT prophylaxis initially because of GI bleed. Patient complained of left arm pain and was scanned for DVT on 09/05/2022 evening which came back positive for DVT in mid to distal left brachial vein. Also now has superficial clot in right UE INR remains supratherapeutic at 4.7>>4.3>3.7>3.0>2.8>3.8>4.4 Monitor INR Decreased Coumadin to 1mg daily- however now on hold as INR supratherap. Recommend INR check in 3 days and adjustment of warfarin as needed. Troponin elevation: Secondary to CHERYL Echo: Grossly normal LV chamber size. Grossly normal LV systolic function without all wall segments able to be visualized. Denies chest pain Vitamin D deficiency Vit D level is <7 Started on Vit D 50,000 U weekly on 09/17/22 Other chronic medical conditions: Ongoing tobacco abuse, HTN, HLD, morbid obesity, gout/rheumatoid arthritis, chronic back pain, medication noncompliance DVT Px: Warfarin Code Status : Full code Admission and Anticipated Discharge Date Admission Date: August 29, 2022 Subjective Patient is seen in follow up of confusion, hypoxia, cheryl/ ckd Patient is lying in bed, in no acute distress, on supplemental oxygen via nasal cannula Pt reports no new complaints, denies any chest pain, dyspnea, dizziness Denies fevers chills abdominal pain nausea or vomiting Discussed with nephrology - patient likely has CKD at this point. Will need follow-up with nephrology and BMPs. Okay for discharge to [facility]. Review of Systems Review of Systems: All systems reviewed & are unremarkable except as noted in Subjective Physical Exam Physical Exam: Constitutional: Morbidly obese M in NAD, on NC Eyes: EOMI, PERRL. Conjunctivae are normal. Anicteric sclera. Neck: thick short neck Respiratory: No use of accessory muscles.Minimal crackles, no wheezing Cardiovascular: Regular rate and rhythm. No murmurs. No edema. Gastrointestinal: Normal bowel sounds, soft, obese nontender and nondistended. Musculoskeletal: Moves all extremities. Skin: No rashes, warm dry and intact. Neurologic: Speech fluent. Follows commands. Answers appropriately. Results & Data Results & Data ([facility]) Vital Signs (Past 12 Hours) Vital Signs Temp Pulse Pulse Resp BP Pulse Ox O2 Del Method 09/30/22 09:16 127/82 09/30/22 07:40 78 09/30/22 06:57 36.5 C 73 19 99/75 L 92 CPAP 09/30/22 03:05 36.7 C 81 18 96/78 L 93 BiPAP 09/29/22 21:56 62 09/30/22 02:28 74 90 09/29/22 21:56 70 09/29/22 22:54 36.6 C 75 20 103/71 94 BiPAP 09/29/22 22:38 79 24 94 O2 Flow Rate 09/30/22 09:16 09/30/22 07:40 09/30/22 06:57 09/30/22 03:05 09/29/22 21:56 09/30/22 02:28 6 09/29/22 21:56 09/29/22 22:54 09/29/22 22:38 3 Laboratory Results 09/30/22 09/30/22 09/30/22 Range/Units 06:48 06:48 06:48 WBC 6.88 (4.8-10.8) K/ul RBC 3.09 L (4.63-6.08) M/uL Hgb 8.7 L (14.0-18.0) g/dl Hct 28.8 L (40.1-51.0) % MCV 93.2 (80.0-100.0) fL MCH 28.2 (25.0-34.0) pg MCHC 30.2 L (32.0-36.0) g/dL RDW Std Deviation 53.1 H (36.4-46.3) fL RDW Coeff of Cheryl 15.7 H (11.5-14.5) % Plt Count 337 (130-400) K/uL MPV 9.6 (9.4-12.4) fL Absolute Nucleated RBC 0.02 H (0-0) K/uL Nucleated RBC % (auto) 0.3 % PT 43.3 H (9.0-12.0) Seconds INR 4.4 H (0.9-1.1) Sodium 135 L (136-145) mmol/L Potassium 4.2 (3.5-5.1) mmol/L Chloride 96 L (98-107) mmol/L Carbon Dioxide 32 (21-32) mmol/L Anion Gap 7 (3-11) BUN 72 H (6-23) mg/dl Creatinine 3.92 H (0.6-1.4) mg/dl Est Cr Clr Drug Dosing 38.6 ml/min Est GFR ( Amer) 18.5 ml/min Est GFR (Non-Af Amer) 15.9 ml/min BUN/Creatinine Ratio 18.4 (10-20) Glucose 77 (70-99(Fasting)) mg/dl Calcium 10.1 (8.5-10.1) mg/dl Medications Administered Current Inpatient Medications Carvedilol (Carvedilol 12.5 Mg Tab) 12.5 mg PO AMHS STACY Stop: 10/21/22 08:59 Last Admin: 09/24/22 07:55 Dose: Not Given Carvedilol (Carvedilol 6.25 Mg Tab) 6.25 mg PO BIDM STACY Stop: 10/26/22 16:59 Last Admin: 09/30/22 09:12 Dose: 6.25 mg Cyanocobalamin (Cyanocobalamin (B-12) 100 Mcg Tablet) 100 mcg PO QAM [facility] Stop: 10/06/22 08:59 Last Admin: 09/30/22 09:12 Dose: 100 mcg Docusate Sodium (Docusate Sodium 100 Mg Cap) 100 mg PO BID [facility] Stop: 10/05/22 10:59 Last Admin: 09/30/22 09:12 Dose: 100 mg Ergocalciferol (Ergocalciferol 50,000 Units 1250 Mcg Cap) 50,000 units PO Q7D@0800 [facility] Stop: 10/17/22 07:59 Last Admin: 09/24/22 07:55 Dose: 50,000 units Folic Acid (Folic Acid 1 Mg Tab) [facility] [place] Stop: 10/02/22 11:59 Last Admin: 09/30/22 09:12 Dose: 1 mg Miconazole Nitrate (Miconazole Nitrate Powder 43 Gm) 1 appln EXT PRN PRN PRN Reason: Affected Skin Folds Stop: 10/05/22 12:30 Last Admin: 09/18/22 20:16 Dose: 1 appln Ondansetron HCl (Ondansetron Inj 2 Mg/Ml 2 Ml Vial) 4 mg IV Q6H PRN PRN Reason: Nausea Stop: 10/05/22 10:41 Oxycodone HCl (Oxycodone Hcl Ir 5 Mg Tab (Immediate Release)) 5 mg PO Q6H PRN PRN Reason: moderate to severe pain Stop: 09/30/22 11:32 Last Admin: 09/28/22 15:52 Dose: 5 mg Pantoprazole Sodium (Pantoprazole 40 Mg Tab) 40 mg PO BID [facility] Stop: 10/08/22 20:59 Last Admin: 09/30/22 09:12 Dose: 40 mg Polyethylene Glycol (Polyethylene (Miralax) 17 Gm Pack) 17 gm PO DAILY PRN PRN Reason: Constipation Stop: 10/05/22 10:52 Warfarin Sodium (Warfarin Sod 1 Mg Tab) 1 mg PO DAILY@1600 [facility] Stop: 10/26/22 15:59 Last Admin: 09/27/22 15:38 Dose: 1 mg
[2022-09-30] MEDS: ONDANSETRON INJ 2 MG/ML 2 ML VIAL IV PRN (11:50)
[2022-09-30] MEDS: ACETAMINOPHEN 325 MG TAB PO PRN (12:30)
[2022-10-01 06:35] LABS: Hematocrit (blood only) 29.3 % (40.1-51.0); Hemoglobin 8.8 g/dl (14.0-18.0); Mean Corpuscular Hemoglobin 27.7 pg (25.0-34.0); Mean Corpuscular Volume 92.1 fL (80.0-100.0); Mean Platelet Volume 9.8 fL (9.4-12.4); Platelet Count 335 K/uL (130-400); RDW Coefficient of Variation 15.9 % (11.5-14.5); RDW Standard Deviation 53.2 fL (36.4-46.3); Red Blood Count 3.18 M/uL (4.63-6.08); White Blood Count 7.61 K/ul (4.8-10.8)
[2022-10-01 06:54] LABS: INR 4.2 (0.9-1.1)
[2022-10-01 07:10] LABS: Calcium 10.1 mg/dl (8.5-10.1); Creatinine Clr Calc Pharmacy 38.5 ml/min; Est GFR (African American) 18.3 ml/min; Est GFR (Non-African American) 15.8 ml/min; Potassium 3.5 mmol/L (3.5-5.1)
--- NOTE | 2022-10-01 07:59 | Hospitalist Progress Note ---
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 No recent antibiotic treatment. Patient was increasingly sleepy as per at presentation. Patient with hemoglobin of 5.9 at admission and received 2 units PRBC transfusion in the ED. Of note, patient moved back to [place] from [place] last June 2022, patient had 3 hospital confinements at [place] for kidney failure and hypoxia prior to return to [place] per his . CHERYL over CKD: --CT Abd:Abnormal imaging of kidneys (bilateral kidneys with intermediate density lesions likely hemorrhagic/proteinaceous cysts --Renal USD: No renal calculi or hydronephrosis or solid renal mass. Bilateral simple and complex renal cyst. Bilateral diffuse cortical thinning with decreased corticomedullary differentiation compatible with chronic medical renal disease. --Baseline creatinine of around 1.4 reported --Cr is 2.88> 4.14> 3.9 Appreciate Nephrology Input Monitor renal function Creatinine 3.9 today Continue to hold Lasix, verapamil Avoid nephrotoxic agents as able Restarted Coreg at low-dose as blood pressure better Discussed with nephrology in detail DISCHARGE RECOMMENDATIONS -d/c on no diuretics -BMP at least weekly x 4, then monthly -favor nephrology follow up if possible; in person preferred but may need to start with telehealth if in person not feasible > f/u w/ any physician provider at [facility] [place] 2-4 wks Metabolic encephalopathy - resolved Multifactorial likely secondary to respiratory failure/hypercarbia Possible OHS/untreated RUTH Nocturnal hypoxia Chronic resp failure w/ hypercapnia and Hypoxia 09/08-09/09 Nocturnal pulse oximetry with 9 desaturation events, time is spent in desaturation greater than 5 minutes and time spent with saturation less than 89% is 1 hour 28-minute. 09/09 AM ABG with PCO2 of 55. Needs BiPAP upon discharge. Noncompliant with BiPAP use intermittently Appreciate pulmonology input Needs sleep study as outpatient Continue BiPAP while sleeping and at bedtime Mental status back to baseline Acute on chronic anemia secondary to lower GI bleed Acute blood loss anemia Hb 5.9 on admission S/P 6 unit PRBC transfusion Iron level low --> s/p iron transfusion x 2. GI evaluated, status post EGD and colonoscopy. --08/31 EGD: No evidence of UGI bleeding, 2 duodenal polyps likely hyperplastic were biopsied with a cold forceps. --> HPE: 2 fragments of polypoid duodenal mucosa with nonspecific duodenitis. Negative for malignancy. --09/01 colonoscopy: The perianal and digital rectal exam were normal. A 10 mm polyp was found in the rectum which was removed with a cold snare and clips [MR conditional] were placed. HPE result is tubular adenoma, negative for high- grade dysplasia. Also diverticulosis in the sigmoid colon were noted. Nonbleeding internal hemorrhoids were noted. Recommendation is to repeat colonoscopy in 5 years for surveillance. Since no evidence of GI bleeding, recommended hematology evaluation. --09/01 peripheral smear: Reviewed FOBT negative, Ferritin > 700. Transfuse hemoglobin if less than 7 or for symptomatic anemia. Last transfusion on 09/02/22 Continue with folic acid and vitamin B12. Appreciate Hematology Input Repeat Ferritin level on 09/15 626 Continue pantoprazole. Monitor CBC Acute DVT: Per patient's , patient has not been mobile since October 2021 He used to be able to walk with cane prior to that. Patient was not on any pharmacological DVT prophylaxis initially because of GI bleed. Patient complained of left arm pain and was scanned for DVT on 09/05/2022 evening which came back positive for DVT in mid to distal left brachial vein. Also now has superficial clot in right UE INR remains supratherapeutic at 4.7>>4.3>3.7>3.0>2.8>3.8>4.4 Monitor INR Decreased Coumadin to 1mg daily- however now on hold as INR supratherap. Recommend INR check in 3 days and adjustment of warfarin as needed. Troponin elevation: Secondary to CHERYL Echo: Grossly normal LV chamber size. Grossly normal LV systolic function without all wall segments able to be visualized. Denies chest pain Vitamin D deficiency Vit D level is <7 Started on Vit D 50,000 U weekly on 09/17/22 Other chronic medical conditions: Ongoing tobacco abuse, HTN, HLD, morbid obesity, gout/rheumatoid arthritis, chronic back pain, medication noncompliance DVT Px: Warfarin Code Status : Full code Admission and Anticipated Discharge Date Admission Date: August 29, 2022 Subjective Patient is seen in follow up of confusion, hypoxia, cheryl/ ckd Patient is lying in bed, in no acute distress, on supplemental oxygen via nasal cannula Pt reports no new complaints, denies any chest pain, dyspnea, dizziness Denies fevers chills abdominal pain nausea or vomiting Discussed with nephrology - patient likely has CKD at this point. Will need follow-up with nephrology and BMPs. Okay for discharge to [facility]. Review of Systems Review of Systems: All systems reviewed & are unremarkable except as noted in Subjective Physical Exam Physical Exam: Constitutional: Morbidly obese M in NAD, on NC Eyes: EOMI, PERRL. Conjunctivae are normal. Anicteric sclera. Neck: thick short neck Respiratory: No use of accessory muscles.Minimal crackles, no wheezing Cardiovascular: Regular rate and rhythm. No murmurs. No edema. Gastrointestinal: Normal bowel sounds, soft, obese nontender and nondistended. Musculoskeletal: Moves all extremities. Skin: No rashes, warm dry and intact. Neurologic: Speech fluent. Follows commands. Answers appropriately. Results & Data Results & Data ([facility]) Vital Signs (Past 12 Hours) Vital Signs Temp Pulse Pulse Resp BP Pulse Ox O2 Del Method 10/01/22 07:18 85 10/01/22 03:10 85 17 93 10/01/22 02:09 36.8 C 82 18 94/63 L 97 Nasal Cannula 09/30/22 22:25 73 09/30/22 20:00 Nasal Cannula 09/30/22 22:55 36.9 C 83 20 107/76 92 Nasal Cannula 09/30/22 21:59 77 20 93 09/30/22 21:02 37.1 C 75 18 126/80 95 Nasal Cannula O2 Flow Rate 10/01/22 07:18 10/01/22 03:10 8 10/01/22 02:09 3 09/30/22 22:25 09/30/22 20:00 3 09/30/22 22:55 3 09/30/22 21:59 4 09/30/22 21:02 3 Laboratory Results 01/05/1610/01/22 10/01/22 Range/Units 05:51 05:51 05:51 WBC 7.61 (4.8-10.8) K/ul RBC 3.18 L (4.63-6.08) M/uL Hgb 8.8 L (14.0-18.0) g/dl Hct 29.3 L (40.1-51.0) % MCV 92.1 (80.0-100.0) fL MCH 27.7 (25.0-34.0) pg MCHC 30.0 L (32.0-36.0) g/dL RDW Std Deviation 53.2 H (36.4-46.3) fL RDW Coeff of Cheryl 15.9 H (11.5-14.5) % Plt Count 335 (130-400) K/uL MPV 9.8 (9.4-12.4) fL PT 41.0 H (9.0-12.0) Seconds INR 4.2 H (0.9-1.1) Sodium 135 L (136-145) mmol/L Potassium 3.5 (3.5-5.1) mmol/L Chloride 95 L (98-107) mmol/L Carbon Dioxide 31 (21-32) mmol/L Anion Gap 9 (3-11) BUN 71 H (6-23) mg/dl Creatinine 3.95 H (0.6-1.4) mg/dl Est Cr Clr Drug Dosing 38.5 ml/min Est GFR ( Amer) 18.3 ml/min Est GFR (Non-Af Amer) 15.8 ml/min BUN/Creatinine Ratio 18.0 (10-20) Glucose 79 (70-99(Fasting)) mg/dl Calcium 10.1 (8.5-10.1) mg/dl Medications Administered Current Inpatient Medications Acetaminophen (Acetaminophen 325 Mg Tab) 650 mg PO Q4H PRN PRN Reason: Pain Stop: 10/30/22 12:22 Last Admin: 09/30/22 12:30 Dose: 650 mg Carvedilol (Carvedilol 12.5 Mg Tab) 12.5 mg PO AMHS STACY Stop: 10/21/22 08:59 Last Admin: 09/24/22 07:55 Dose: Not Given Carvedilol (Carvedilol 6.25 Mg Tab) 6.25 mg PO BIDM [facility] Stop: 10/26/22 16:59 Last Admin: 09/30/22 17:34 Dose: 6.25 mg Cyanocobalamin (Cyanocobalamin (B-12) 100 Mcg Tablet) 100 mcg PO QAM [facility] Stop: 10/06/22 08:59 Last Admin: 09/30/22 09:12 Dose: 100 mcg Docusate Sodium (Docusate Sodium 100 Mg Cap) 100 mg PO BID [facility] Stop: 10/05/22 10:59 Last Admin: 09/30/22 21:00 Dose: 100 mg Ergocalciferol (Ergocalciferol 50,000 Units 1250 Mcg Cap) 50,000 units PO Q7D@0800 [facility] Stop: 10/17/22 07:59 Last Admin: 09/24/22 07:55 Dose: 50,000 units Folic Acid (Folic Acid 1 Mg Tab) [facility] [place] Stop: 10/02/22 11:59 Last Admin: 09/30/22 09:12 Dose: 1 mg Miconazole Nitrate (Miconazole Nitrate Powder 43 Gm) 1 appln EXT PRN PRN PRN Reason: Affected Skin Folds Stop: 10/05/22 12:30 Last Admin: 09/18/22 20:16 Dose: 1 appln Ondansetron HCl (Ondansetron Inj 2 Mg/Ml 2 Ml Vial) 4 mg IV Q6H PRN PRN Reason: Nausea Stop: 10/05/22 10:41 Last Admin: 09/30/22 11:50 Dose: 4 mg Pantoprazole Sodium (Pantoprazole 40 Mg Tab) 40 mg PO BID [facility] Stop: 10/08/22 20:59 Last Admin: 09/30/22 21:00 Dose: 40 mg Polyethylene Glycol (Polyethylene (Miralax) 17 Gm Pack) 17 gm PO DAILY PRN PRN Reason: Constipation Stop: 10/05/22 10:52 Warfarin Sodium (Warfarin Sod 1 Mg Tab) 1 mg PO DAILY@1600 [facility] Stop: 10/26/22 15:59 Last Admin: 09/27/22 15:38 Dose: 1 mg
[2022-10-01] MEDS ORDERED: POTASSIUM CHLORIDE PWD 20 MEQ PACK PO ONE (08:00)
[2022-10-01] MEDS: DOCUSATE SODIUM 100 MG CAP PO SCH ×2 (09:07→21:57)
[2022-10-01] MEDS: PANTOprazole 40 MG TAB PO SCH ×2 (09:08→21:57)
[2022-10-01] MEDS: ERGOCALCIFEROL 50,000 UNITS 1250 MCG CAP PO SCH (09:08)
[2022-10-01] MEDS: CYANOCOBALAMIN (B-12) 100 MCG TABLET PO SCH (09:08)
[2022-10-01] MEDS: FOLIC ACID 1 MG TAB PO SCH (09:08)
[2022-10-01] MEDS: carvediloL 6.25 MG TAB PO SCH ×2 (09:08→17:26)
[2022-10-01] MEDS: ACETAMINOPHEN 325 MG TAB PO PRN ×2 (17:27→23:54)
[2022-10-01] MEDS ORDERED: Nursing to Pharmacy Communication SCH (21:45)
[2022-10-01] MEDS ORDERED: HYDROXYCHLOROQUINE SULFATE 200 MG TAB PO ONE (21:45)
[2022-10-02] MEDS: carvediloL 6.25 MG TAB PO SCH (08:48)
[2022-10-02] MEDS: CYANOCOBALAMIN (B-12) 100 MCG TABLET PO SCH (08:48)
[2022-10-02] MEDS: PANTOprazole 40 MG TAB PO SCH ×2 (08:48→22:21)
[2022-10-02] MEDS: FOLIC ACID 1 MG TAB PO SCH (08:48)
[2022-10-02] MEDS: DOCUSATE SODIUM 100 MG CAP PO SCH ×2 (08:48→22:23)
[2022-10-02 08:55] LABS: INR 3.2 (0.9-1.1); Prothrombin Time 32.4 Seconds (9.0-12.0)
--- NOTE | 2022-10-02 10:47 | Nephrology Progress Note ---
Date of Service October 02, 2022 Assessment & Plan Admission and Anticipated Discharge Date Admission Date: August 29, 2022 Subjective Assessment & Plan (1) CHERYL (acute kidney injury): Plan: 3 distinct episodes of oliguric acute kidney injury due to ischemic ATN in setting of acute blood loss anemia, obligate diuresis. Given Severe Chronic Hypoxia he does seem very susceptible to Intermittent CHERYL. Now recovering from third episode of CHERYL for now no fluid limit Daily BMP and avoid nephrotoxins for now No lasix and Hold BP lowering meds to allow for renal recovery. Creat seem to have plateaued now in the high 3's now Very hard to assess fluid status. Also without lasix his urine gets very low--yesterday was 1000 ml but before was less than 500 ml which for his body size is clearly oliguric. So not sure he can be without diuretics care home. Out pt f/u Inperson or telemed within 1 week. Subjective no new issues. Feels weak. urine yesterday was 1000 ml. Review of Systems Review of Systems: All systems reviewed & are unremarkable except as noted in Subjective Physical Exam Constitutional: well developed, well nourished, + obese and cooperative; no acute distress Eyes: EOM intact bilaterally ENMT: Ears: no external ear abnormality Nose: no external nose abnormality Mouth: + dry oral mucous membranes Neck: no nuchal rigidity Respiratory: + labored breathing (slight); no respira tory distress Auscultation: lungs clear to auscultation bilaterally and + diminished lung sounds Cardiovascular: Rate/Rhythm: regular rate, regular rhythm and + tachycardic Extremities: + edema (3+ pedal; trace dep; LUE edema) Gastrointestinal (Abdomen): Inspection/Auscultation: normal bowel sounds Percussion/Palpation: abdomen soft; abdomen nontender Musculoskeletal: Extremities: strength 5/5 throughout and + abnormal strength Skin: no rashes, warm and dry Psychiatric: Orientation: oriented x 3 Speech: normal rate/rhythm/volume of speech Genitourinary: crenshaw w/ ample yellow urine Results & Data ([facility]) Vital Signs (Past 12 Hours) Vital Signs Temp Pulse Pulse Pulse Resp BP Pulse Ox 10/02/22 08:13 36.5 C 72 20 123/66 94 10/02/22 07:41 83 10/02/22 04:11 36.6 C 77 20 136/74 96 10/02/22 00:28 36.6 C 77 20 130/67 93 10/01/22 22:52 36.5 C 78 18 110/70 96 O2 Del Method O2 Flow Rate 10/02/22 08:13 Room Air 10/02/22 07:41 10/02/22 04:11 Nasal Cannula 3 10/02/22 00:28 Nasal Cannula 4 10/01/22 22:52 Nasal Cannula 4
--- NOTE | 2022-10-02 11:06 | Hospitalist Progress Note ---
Date of Service October 02, 2022 Assessment & Plan (1) CHERYL (acute kidney injury): (2) Anemia: (3) Acute GI bleeding: Plan Patient is a 56 yr male with H/O HTN, HLD, CKD [baseline creatinine 1.4], chronic anemia [baseline hemoglobin 9], morbid obesity, possible RUTH as per records, gout, rheumatoid arthritis, chronic back pain, medication noncompliance as per records, ongoing tobacco abuse presented to our ED 08/29/2022 with complaint of feeling sick for 3 days ago [employer] associated with nausea, vomiting, bloody diarrhea and increasing weakness. No recent antibiotic treatment. Patient was increasingly sleepy as per at presentation. Patient with hemoglobin of 5.9 at admission and received 2 units PRBC transfusion in the ED. Of note, patient moved back to [place] from [place] last June 2022, patient had 3 hospital confinements at [place] for kidney failure and hypoxia prior to return to [place] per his . CHERYL over CKD: --CT Abd:Abnormal imaging of kidneys (bilateral kidneys with intermediate density lesions likely hemorrhagic/proteinaceous cysts --Renal USD: No renal calculi or hydronephrosis or solid renal mass. Bilateral simple and complex renal cyst. Bilateral diffuse cortical thinning with decreased corticomedullary differentiation compatible with chronic medical renal disease. --Baseline creatinine of around 1.4 reported --Cr is 2.88> 4.14> 3.9 Appreciate Nephrology Input Monitor renal function Creatinine 3.9 today Continue to hold Lasix, verapamil Avoid nephrotoxic agents as able Restarted Coreg at low-dose as blood pressure better Discussed DC recommendations with nephrology in detail - ? if d/c on any diuretics -BMP at least weekly x 4, then monthly -favor nephrology follow up if possible; in person preferred but may need to start with telehealth if in person not feasible > f/u w/ any physician provider at [facility] in 1 week Metabolic encephalopathy - resolved Multifactorial likely secondary to respiratory failure/hypercarbia Possible OHS/untreated RUTH Nocturnal hypoxia Chronic resp failure w/ hypercapnia and Hypoxia 09/08-09/09 Nocturnal pulse oximetry with 9 desaturation events, time is spent in desaturation greater than 5 minutes and time spent with saturation less than 89% is 1 hour 28-minute. 09/09 AM ABG with PCO2 of 55. Needs BiPAP upon discharge. Noncompliant with BiPAP use intermittently Appreciate pulmonology input Needs sleep study as outpatient Continue BiPAP while sleeping and at bedtime Mental status back to baseline Acute on chronic anemia secondary to lower GI bleed Acute blood loss anemia Hb 5.9 on admission S/P 6 unit PRBC transfusion Iron level low --> s/p iron transfusion x 2. GI evaluated, status post EGD and colonoscopy. --08/31 EGD: No evidence of UGI bleeding, 2 duodenal polyps likely hyperplastic were biopsied with a cold forceps. --> HPE: 2 fragments of polypoid duodenal mucosa with nonspecific duodenitis. Negative for malignancy. --09/01 colonoscopy: The perianal and digital rectal exam were normal. A 10 mm polyp was found in the rectum which was removed with a cold snare and clips [MR conditional] were placed. HPE result is tubular adenoma, negative for high- grade dysplasia. Also diverticulosis in the sigmoid colon were noted. Nonbleeding internal hemorrhoids were noted. Recommendation is to repeat colonoscopy in 5 years for surveillance. Since no evidence of GI bleeding, recommended hematology evaluation. --09/01 peripheral smear: Reviewed FOBT negative, Ferritin > 700. Transfuse hemoglobin if less than 7 or for symptomatic anemia. Last transfusion on 09/02/22 Continue with folic acid and vitamin B12. Appreciate Hematology Input Repeat Ferritin level on 09/15 626 Continue pantoprazole. Monitor CBC Acute DVT: Per patient's , patient has not been mobile since October 2021 He used to be able to walk with cane prior to that. Patient was not on any pharmacological DVT prophylaxis initially because of GI bleed. Patient complained of left arm pain and was scanned for DVT on 09/05/2022 evening which came back positive for DVT in mid to distal left brachial vein. Also now has superficial clot in right UE INR remains supratherapeutic at 4.7>>4.3>3.7>3.0>2.8>3.8>4.4>3.2 Monitor INR Decreased Coumadin to 1mg daily- however now on hold as INR supratherap. Recommend INR check in 3 days and adjustment of warfarin as needed. Troponin elevation: Secondary to CHERYL Echo: Grossly normal LV chamber size. Grossly normal LV systolic function without all wall segments able to be visualized. Denies chest pain Vitamin D deficiency Vit D level is <7 Started on Vit D 50,000 U weekly on 09/17/22 Other chronic medical conditions: Ongoing tobacco abuse, HTN, HLD, morbid obesity, gout/rheumatoid arthritis, chronic back pain, medication noncompliance DVT Px: Warfarin Code Status : Full code Admission and Anticipated Discharge Date Admission Date: August 29, 2022 Subjective Patient is seen in follow up of confusion, hypoxia, cheryl/ ckd Patient is lying in bed, in no acute distress, on supplemental oxygen via nasal cannula Pt reports no new complaints, denies any chest pain, dyspnea, dizziness Denies fevers chills abdominal pain nausea or vomiting Patient is inquiring about discharge, getting frustrated about being here this long. Review of Systems Review of Systems: All systems reviewed & are unremarkable except as noted in Subjective Physical Exam Physical Exam: Constitutional: Morbidly obese M in NAD, on NC Eyes: EOMI, PERRL. Conjunctivae are normal. Anicteric sclera. Neck: thick short neck Respiratory: No use of accessory muscles.Minimal crackles, no wheezing Cardiovascular: Regular rate and rhythm. No murmurs. No edema. Gastrointestinal: Normal bowel sounds, soft, obese nontender and nondistended. Musculoskeletal: Moves all extremities. Skin: No rashes, warm dry and intact. Neurologic: Speech fluent. Follows commands. Answers appropriately. Results & Data Results & Data ([facility]) Vital Signs (Past 12 Hours) Vital Signs Temp Pulse Pulse Pulse Resp BP Pulse Ox 10/02/22 07:30 10/02/22 08:13 36.5 C 72 20 123/66 94 10/02/22 07:41 83 10/02/22 04:11 36.6 C 77 20 136/74 96 10/02/22 00:28 36.6 C 77 20 130/67 93 O2 Del Method O2 Flow Rate 10/02/22 07:30 Nasal Cannula 3 10/02/22 08:13 Room Air 10/02/22 07:41 10/02/22 04:11 Nasal Cannula 3 10/02/22 00:28 Nasal Cannula 4 Laboratory Results 10/02/22 Range/Units 08:18 PT 32.4 H (9.0-12.0) Seconds INR 3.2 H (0.9-1.1) Medications Administered Current Inpatient Medications Acetaminophen (Acetaminophen 325 Mg Tab) 650 mg PO Q4H PRN PRN Reason: Pain Stop: 10/30/22 12:22 Last Admin: 10/01/22 23:54 Dose: 650 mg Carvedilol (Carvedilol 6.25 Mg Tab) 6.25 mg PO BIDM [facility] Stop: 10/26/22 16:59 Last Admin: 10/02/22 08:48 Dose: 6.25 mg Cyanocobalamin (Cyanocobalamin (B-12) 100 Mcg Tablet) 100 mcg PO QAM [facility] Stop: 10/06/22 08:59 Last Admin: 10/02/22 08:48 Dose: 100 mcg Docusate Sodium (Docusate Sodium 100 Mg Cap) 100 mg PO BID [facility] Stop: 10/05/22 10:59 Last Admin: 10/02/22 08:48 Dose: 100 mg Ergocalciferol (Ergocalciferol 50,000 Units 1250 Mcg Cap) 50,000 units PO Q7D@0800 [facility] Stop: 10/17/22 07:59 Last Admin: 10/01/22 09:08 Dose: 50,000 units Folic Acid (Folic Acid 1 Mg Tab) [facility] Stop: 10/02/22 11:59 Last Admin: 10/02/22 08:48 Dose: 1 mg Hydroxychloroquine Sulfate (Hydroxychloroquine Sulfate 200 Mg Tab) 200 mg PO HS [facility] Stop: 11/01/22 20:59 Miconazole Nitrate (Miconazole Nitrate Powder 43 Gm) 1 appln EXT PRN PRN PRN Reason: Affected Skin Folds Stop: 10/05/22 12:30 Last Admin: 09/18/22 20:16 Dose: 1 appln Ondansetron HCl (Ondansetron Inj 2 Mg/Ml 2 Ml Vial) 4 mg IV Q6H PRN PRN Reason: Nausea Stop: 10/05/22 10:41 Last Admin: 09/30/22 11:50 Dose: 4 mg Pantoprazole Sodium (Pantoprazole 40 Mg Tab) 40 mg PO BID [facility] Stop: 10/08/22 20:59 Last Admin: 10/02/22 08:48 Dose: 40 mg Polyethylene Glycol (Polyethylene (Miralax) 17 Gm Pack) 17 gm PO DAILY PRN PRN Reason: Constipation Stop: 10/05/22 10:52 Warfarin Sodium (Warfarin Sod 1 Mg Tab) 1 mg PO DAILY@1600 [facility] Stop: 10/26/22 15:59 Last Admin: 09/27/22 15:38 Dose: 1 mg
--- NOTE | 2022-10-02 14:03 | Electrocardiogram Report ---
Test Reason : Blood Pressure : / mmHG Vent. Rate : 080 BPM Atrial Rate : 080 BPM P-R Int : 164 ms QRS Dur : 130 ms QT Int : 406 ms P-R-T Axes : 024 -18 009 degrees QTc Int : 468 ms Normal sinus rhythm Right bundle branch block Abnormal ECG When compared with ECG of 02-SEP-2022 11:31, Sinus rhythm has replaced Junctional rhythm Confirmed by Virgil Helms ([id number]) on 10/02/2022 2:02:51 PM Referred By: REFERRED SELF Confirmed By:Virgil Helms
[2022-10-02] MEDS: METOPROLOL TARTRATE 25 MG TAB PO SCH (22:21)
[2022-10-02] MEDS: HYDROXYCHLOROQUINE SULFATE 200 MG TAB PO SCH (22:23)
[2022-10-03 08:40] LABS: INR 2.9 (0.9-1.1); Prothrombin Time 29.4 Seconds (9.0-12.0)
[2022-10-03] MEDS: PANTOprazole 40 MG TAB PO SCH ×2 (08:45→20:04)
[2022-10-03] MEDS: CYANOCOBALAMIN (B-12) 100 MCG TABLET PO SCH (08:46)
[2022-10-03] MEDS: METOPROLOL TARTRATE 25 MG TAB PO SCH ×2 (08:46→20:04)
[2022-10-03] MEDS: ACETAMINOPHEN 325 MG TAB PO PRN ×2 (08:47→21:00)
[2022-10-03] MEDS: DOCUSATE SODIUM 100 MG CAP PO SCH ×2 (08:48→20:04)
[2022-10-03 08:53] LABS: BUN Creatinine Ratio 20.3 (10-20); Calcium 10.6 mg/dl (8.5-10.1); Est GFR (African American) 23.2 ml/min; Potassium 3.6 mmol/L (3.5-5.1)
--- NOTE | 2022-10-03 09:40 | Nephrology Progress Note ---
Date of Service October 03, 2022 Assessment & Plan Admission and Anticipated Discharge Date Admission Date: August 29, 2022 Subjective Subjective Assessment & Plan (1) CHERYL (acute kidney injury): Plan: 3 distinct episodes of oliguric acute kidney injury due to ischemic ATN in setting of acute blood loss anemia, obligate diuresis. Given Severe Chronic Hypoxia he does seem very susceptible to Intermittent CHERYL. Now recovering from third episode of CHERYL for now no fluid limit Daily BMP and avoid nephrotoxins For now No lasix and Hold BP lowering meds to allow for renal recovery. Creat seem to be dropping for now. Very hard to assess fluid status. Also without lasix his urine output gets very low for his body size. So not sure he can be without diuretics residential. Outpt f/u Inperson or telemed within 1 week. Ca slightly high but was low before with very very low vit D. Subjective no new issues. Feels weak. urine yesterday was 1100 ml. getting irritable and wants to go home now Review of Systems Review of Systems: All systems reviewed & are unremarkable except as noted in Subjective Physical Exam Constitutional: well developed, well nourished, + obese and cooperative; no acute distress Eyes: EOM intact bilaterally ENMT: Ears: no external ear abnormality Nose: no external nose abnormality Mouth: + dry oral mucous membranes Neck: no nuchal rigidity Respiratory: + labored breathing (slight); no respira tory distress Auscultation: lungs clear to auscultation bilaterally and + diminished lung sounds Cardiovascular: Rate/Rhythm: regular rate, regular rhythm and + tachycardic Extremities: + edema (3+ pedal; trace dep; LUE edema) Gastrointestinal (Abdomen): Inspection/Auscultation: normal bowel sounds Percussion/Palpation: abdomen soft; abdomen nontender Musculoskeletal: Extremities: strength 5/5 throughout and + abnormal strength Skin: no rashes, warm and dry Psychiatric: Orientation: oriented x 3 Speech: normal rate/rhythm/volume of speech Genitourinary: crenshaw w/ ample yellow urine Results & Data ([facility]) Vital Signs (Past 12 Hours) Vital Signs Temp Pulse Pulse Resp BP Pulse Ox O2 Del Method 10/03/22 08:00 Room Air 10/03/22 07:49 36.5 C 84 20 135/76 94 Nasal Cannula 10/03/22 07:31 77 10/03/22 04:12 36.6 C 75 20 129/81 95 CPAP 10/03/22 03:11 82 10/03/22 00:33 77 19 95 10/03/22 00:32 36.5 C 80 20 157/99 H 92 Nasal Cannula O2 Flow Rate 10/03/22 08:00 10/03/22 07:49 3 10/03/22 07:31 10/03/22 04:12 10/03/22 03:11 10/03/22 00:33 3 10/03/22 00:32 3
[2022-10-03] MEDS: WARFARIN SOD 0.5 MG TAB PO SCH (16:32)
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
[2022-10-03] MEDS ORDERED: CALCIUM CARBONATE 500 MG CHEWABLE TAB PO PRN (17:50)
[2022-10-03] MEDS: HYDROXYCHLOROQUINE SULFATE 200 MG TAB PO SCH (20:04)
[2022-10-04] MEDS: PANTOprazole 40 MG TAB PO SCH ×2 (07:34→21:40)
[2022-10-04] MEDS: DOCUSATE SODIUM 100 MG CAP PO SCH ×2 (07:34→21:41)
[2022-10-04] MEDS: METOPROLOL TARTRATE 25 MG TAB PO SCH ×2 (07:34→21:40)
[2022-10-04] MEDS: CYANOCOBALAMIN (B-12) 100 MCG TABLET PO SCH (07:34)
[2022-10-04 08:18] LABS: INR 2.8 (0.9-1.1); Prothrombin Time 28.1 Seconds (9.0-12.0)
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
[2022-10-04] MEDS: WARFARIN SOD 0.5 MG TAB PO SCH (17:02)
[2022-10-04] MEDS: ONDANSETRON INJ 2 MG/ML 2 ML VIAL IV PRN (20:40)
[2022-10-04] MEDS: HYDROXYCHLOROQUINE SULFATE 200 MG TAB PO SCH (21:41)
[2022-10-05 06:54] LABS: Hematocrit (blood only) 30.3 % (40.1-51.0); Hemoglobin 9.2 g/dl (14.0-18.0)
[2022-10-05 07:34] LABS: INR 2.6 (0.9-1.1); Prothrombin Time 26.3 Seconds (9.0-12.0)
[2022-10-05] MEDS: METOPROLOL TARTRATE 25 MG TAB PO SCH ×2 (08:33→20:50)
[2022-10-05] MEDS: CYANOCOBALAMIN (B-12) 100 MCG TABLET PO SCH (08:33)
[2022-10-05] MEDS: PANTOprazole 40 MG TAB PO SCH ×2 (08:33→20:50)
[2022-10-05] MEDS: DOCUSATE SODIUM 100 MG CAP PO SCH (08:34)
[2022-10-05 08:42] LABS: BUN Creatinine Ratio 17.7 (10-20); Calcium 10.8 mg/dl (8.5-10.1); Creatinine Clr Calc Pharmacy 48.6 ml/min; Est GFR (African American) 24.5 ml/min; Est GFR (Non-African American) 21.2 ml/min; Potassium 3.4 mmol/L (3.5-5.1)
[2022-10-05] MEDS: ACETAMINOPHEN 325 MG TAB PO PRN ×2 (11:08→20:49)
[2022-10-05] MEDS: WARFARIN SOD 0.5 MG TAB PO SCH (17:09)
[2022-10-05] MEDS: HYDROXYCHLOROQUINE SULFATE 200 MG TAB PO SCH (20:50)
--- NOTE | 2022-10-05 22:04 | Hospitalist Progress Note ---
Date of Service October 05, 2022 Assessment & Plan (1) CHERYL (acute kidney injury): Plan: As per Nephrology:3 distinct episodes of oliguric acute kidney injury due to ischemic ATN in setting of acute blood loss anemia, obligate diuresis. Given Severe Chronic Hypoxia he does seem very susceptible to Intermittent CHERYL. 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 No recent antibiotic treatment. Patient was increasingly sleepy as per at presentation. Patient with hemoglobin of 5.9 at admission and received 2 units PRBC transfusion in the ED. Of note, patient moved back to [place] from [place] last June 2022, patient had 3 hospital confinements at [place] for kidney failure and hypoxia prior to return to [place] per his . Discussed DC recommendations with nephrology in detail - d/c on no diuretics -BMP at least weekly x 4, then monthly -favor nephrology follow up in person but may need to start with telehealth if in person not feasible > f/u w/ any physician provider at [facility] in 1 week Metabolic encephalopathy - resolved Multifactorial likely secondary to respiratory failure/hypercarbia Possible OHS/untreated RUTH Nocturnal hypoxia Chronic resp failure w/ hypercapnia and Hypoxia 09/08-09/09 Nocturnal pulse oximetry with 9 desaturation events, time is spent in desaturation greater than 5 minutes and time spent with saturation less than 89% is 1 hour 28-minute. 09/09 AM ABG with PCO2 of 55. Needs BiPAP upon discharge. Noncompliant with BiPAP use intermittently Appreciate pulmonology input Needs sleep study as outpatient Continue BiPAP while sleeping and at bedtime Mental status back to baseline Acute on chronic anemia secondary to lower GI bleed Acute blood loss anemia Hb 5.9 on admission S/P 6 unit PRBC transfusion Iron level low --> s/p iron transfusion x 2. GI evaluated, status post EGD and colonoscopy. --08/31 EGD: No evidence of UGI bleeding, 2 duodenal polyps likely hyperplastic were biopsied with a cold forceps. --> HPE: 2 fragments of polypoid duodenal mucosa with nonspecific duodenitis. Negative for malignancy. --09/01 colonoscopy: The perianal and digital rectal exam were normal. A 10 mm polyp was found in the rectum which was removed with a cold snare and clips [MR conditional] were placed. HPE result is tubular adenoma, negative for high- grade dysplasia. Also diverticulosis in the sigmoid colon were noted. Nonbleeding internal hemorrhoids were noted. Recommendation is to repeat colonoscopy in 5 years for surveillance. Since no evidence of GI bleeding, recommended hematology evaluation. --09/01 peripheral smear: Reviewed FOBT negative, Ferritin > 700. Transfuse hemoglobin if less than 7 or for symptomatic anemia. Last transfusion on 09/02/22 Continue with folic acid and vitamin B12. Appreciate Hematology Input Repeat Ferritin level on 09/15 626 Continue pantoprazole. Monitor CBC Acute DVT: Per patient's , patient has not been mobile since October 2021 He used to be able to walk with cane prior to that. Patient was not on any pharmacological DVT prophylaxis initially because of GI bleed. Patient complained of left arm pain and was scanned for DVT on 09/05/2022 evening which came back positive for DVT in mid to distal left brachial vein. Also now has superficial clot in right UE INR supratherapeutic most of the time Now therapeutic 2.8 (10/04/22) Monitor INR Decreased Coumadin to 0.5 mg daily Recommend INR check in 3 days and adjustment of warfarin as needed. Troponin elevation: Secondary to CHERYL Echo: Grossly normal LV chamber size. Grossly normal LV systolic function without all wall segments able to be visualized. Denies chest pain Vitamin D deficiency Vit D level is <7 Started on Vit D 50,000 U weekly on 09/17/22 Other chronic medical conditions: Ongoing tobacco abuse, HTN, HLD, morbid obesity, gout/rheumatoid arthritis, chronic back pain, medication noncompliance (2) CKD (chronic kidney disease) stage 4, GFR 15-29 ml/min: (3) DVT (deep venous thrombosis): (4) Morbid obesity: (5) Acute GI bleeding: (6) Elevated troponin: (7) Obesity hypoventilation syndrome: (8) Encephalopathy: Admission and Anticipated Discharge Date Admission Date: August 29, 2022 Subjective Lying in the bed in room afebrile says eating ok' denies any pain no sob no nausea eating ok says has some discomfort in right groin Review of Systems Review of Systems: ROS unrmarkable Physical Exam Neck: trachea midline, no thyromegaly Respiratory: normal respiratory effort, lungs clear to auscultation Cardiovascular: RRR, no murmur, no edema Gastrointestinal (Abdomen): normal bowel sounds, soft, nontender, no hepatosplenomegaly Neurologic: alert and oriented no facial droop Speech clear obeys simple commands moves extremities Results & Data Results & Data ([facility]) Vital Signs (Past 12 Hours) Vital Signs Temp Pulse Pulse Resp BP Pulse Ox O2 Del Method 10/05/22 19:21 36.8 C 95 H 20 102/68 90 Nasal Cannula 10/05/22 16:37 86 10/05/22 15:07 36.7 C 91 H 20 126/89 94 Nasal Cannula 10/05/22 11:25 112/70 10/05/22 11:22 95 Nasal Cannula 10/05/22 11:13 36.5 C 86 20 100/64 94 Nasal Cannula O2 Flow Rate 10/05/22 19:21 3 10/05/22 16:37 10/05/22 15:07 3 10/05/22 11:25 10/05/22 11:22 3 10/05/22 11:13 3
[2022-10-06 06:05] LABS: Basophils # (auto) 0.07 K/uL (0-0.2); Eosinophils # (auto) 1.76 K/uL (0-0.50); Eosinophils % (auto) 26.3 %; Hematocrit (blood only) 32.7 % (40.1-51.0); Hemoglobin 9.7 g/dl (14.0-18.0); Immature Granulocytes # (auto) 0.08 K/uL (0.00-0.02); Immature Granulocytes % (auto) 1.2 %; Lymphocytes # (auto) 1.51 K/uL (1.2-3.4); Lymphocytes % (auto) 22.6 %; Mean Corpuscular Hemoglobin 27.7 pg (25.0-34.0); Mean Corpuscular Hgb Conc 29.7 g/dL (32.0-36.0); Mean Corpuscular Volume 93.4 fL (80.0-100.0); Mean Platelet Volume 9.5 fL (9.4-12.4); Monocytes # (auto) 0.45 K/uL (0.24-0.82); Monocytes % (auto) 6.7 %; Neutrophils # (auto) 2.81 K/uL (1.4-6.5); Neutrophils % (auto) 42.2 %; Platelet Count 295 K/uL (130-400); RDW Coefficient of Variation 16.3 % (11.5-14.5); RDW Standard Deviation 55.9 fL (36.4-46.3); White Blood Count 6.68 K/ul (4.8-10.8)
[2022-10-06 06:15] LABS: INR 2.9 (0.9-1.1); Prothrombin Time 28.7 Seconds (9.0-12.0)
[2022-10-06 06:33] LABS: BUN Creatinine Ratio 17.1 (10-20); Calcium 10.7 mg/dl (8.5-10.1); Creatinine Clr Calc Pharmacy 47.7 ml/min; Est GFR (African American) 24.5 ml/min; Est GFR (Non-African American) 21.2 ml/min; Magnesium 1.9 mg/dl (1.7-2.4); Potassium 3.7 mmol/L (3.5-5.1)
[2022-10-06] MEDS: METOPROLOL TARTRATE 25 MG TAB PO SCH ×2 (09:54→23:27)
[2022-10-06] MEDS: ACETAMINOPHEN 325 MG TAB PO PRN ×2 (09:55→23:29)
[2022-10-06] MEDS: PANTOprazole 40 MG TAB PO SCH ×2 (09:55→23:27)
--- NOTE | 2022-10-06 11:04 | Nephrology Progress Note ---
Date of Service October 06, 2022 Assessment & Plan Admission and Anticipated Discharge Date Admission Date: August 29, 2022 Subjective Assessment & Plan (1) CHERYL (acute kidney injury): Plan: 3 distinct episodes of oliguric acute kidney injury due to ischemic ATN in setting of acute blood loss anemia, obligate diuresis. Given Severe Chronic Hypoxia he does seem very susceptible to Intermittent CHERYL. Now recovering from third episode of CHERYL for now no fluid limit Daily BMP and avoid nephrotoxins Creat seem to have plateaued now in the low 3's now Very hard to assess fluid status. Also without lasix his urine gets very low--yesterday was 500 ml which for his body size is clearly oliguric. So not sure he can be without diuretics rn long term care. will put him on torsemide 20 daily Out pt f/u Inperson or telemed within 1 week of Discharge Subjective no new issues. Feels weak. urine yesterday was 1000 ml. Review of Systems Review of Systems: All systems reviewed & are unremarkable except as noted in Subjective Physical Exam Constitutional: well developed, well nourished, + obese and cooperative; no acute distress Eyes: EOM intact bilaterally ENMT: Ears: no external ear abnormality Nose: no external nose abnormality Mouth: + dry oral mucous membranes Neck: no nuchal rigidity Respiratory: + labored breathing (slight); no respira tory distress Auscultation: lungs clear to auscultation bilaterally and + diminished lung sounds Cardiovascular: Rate/Rhythm: regular rate, regular rhythm and + tachycardic Extremities: + edema (3+ pedal; trace dep; LUE edema) Gastrointestinal (Abdomen): Inspection/Auscultation: normal bowel sounds Percussion/Palpation: abdomen soft; abdomen nontender Musculoskeletal: Extremities: strength 5/5 throughout and + abnormal strength Skin: no rashes, warm and dry Psychiatric: Orientation: oriented x 3 Speech: normal rate/rhythm/volume of speech Genitourinary: crenshaw w/ ample yellow urine Results & Data ([facility]) Vital Signs (Past 12 Hours) Vital Signs Temp Pulse Pulse Resp BP Pulse Ox O2 Del Method 10/06/22 08:46 36.6 C 91 H 20 172/83 H 94 Nasal Cannula 10/06/22 07:40 90 10/06/22 03:19 36.6 C 88 18 130/78 93 Nasal Cannula 10/05/22 23:59 86 16 93 Nasal Cannula O2 Flow Rate 10/06/22 08:46 2 10/06/22 07:40 10/06/22 03:19 3 10/05/22 23:59 3
[2022-10-06] MEDS: TORSEMIDE 10 MG TAB PO SCH (12:12)
[2022-10-06] MEDS: WARFARIN SOD 0.5 MG TAB PO SCH (16:28)
--- NOTE | 2022-10-06 20:13 | Hospitalist Progress Note ---
Date of Service October 06, 2022 Assessment & Plan (1) CHERYL (acute kidney injury): Plan: As per Nephrology:3 distinct episodes of oliguric acute kidney injury due to ischemic ATN in setting of acute blood loss anemia, obligate diuresis. Given Severe Chronic Hypoxia he does seem very susceptible to Intermittent CHERYL. 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 No recent antibiotic treatment. Patient was increasingly sleepy as per at presentation. Patient with hemoglobin of 5.9 at admission and received 2 units PRBC transfusion in the ED. Of note, patient moved back to [place] from [place] last June 2022, patient had 3 hospital confinements at [place] for kidney failure and hypoxia prior to return to [place] per his . Nephrology today 10/06/22 reommendation: Creat seem to have plateaued now in the low 3's now Very hard to assess fluid status. Also without lasix his urine gets very low--yesterday was 500 ml which for his body size is clearly oliguric. 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 will put him on torsemide 20 daily Out pt f/u Inperson or telemed within 1 week of Discharge Metabolic encephalopathy - resolved Multifactorial likely secondary to respiratory failure/hypercarbia Possible OHS/untreated RUTH Nocturnal hypoxia Chronic resp failure w/ hypercapnia and Hypoxia 09/08-09/09 Nocturnal pulse oximetry with 9 desaturation events, time is spent in desaturation greater than 5 minutes and time spent with saturation less than 89% is 1 hour 28-minute. 09/09 AM ABG with PCO2 of 55. Needs BiPAP upon discharge. Noncompliant with BiPAP use intermittently Appreciate pulmonology input Needs sleep study as outpatient Continue BiPAP while sleeping and at bedtime Mental status back to baseline Acute on chronic anemia secondary to lower GI bleed Acute blood loss anemia Hb 5.9 on admission S/P 6 unit PRBC transfusion Iron level low --> s/p iron transfusion x 2. GI evaluated, status post EGD and colonoscopy. --08/31 EGD: No evidence of UGI bleeding, 2 duodenal polyps likely hyperplastic w ere biopsied with a cold forceps. --> HPE: 2 fragments of polypoid duodenal mucosa with nonspecific duodenitis. Negative for malignancy. --09/01 colonoscopy: The perianal and digital rectal exam were normal. A 10 mm polyp was found in the rectum which was removed with a cold snare and clips [MR conditional] were placed. HPE result is tubular adenoma, negative for high- grade dysplasia. Also diverticulosis in the sigmoid colon were noted. Nonbleeding internal hemorrhoids were noted. Recommendation is to repeat colonoscopy in 5 years for surveillance. Since no evidence of GI bleeding, brady mmended hematology evaluation. --09/01 peripheral smear: Reviewed FOBT negative, Ferritin > 700. Transfuse hemoglobin if less than 7 or for symptomatic anemia. Last transfusion on 09/02/22 Continue with folic acid and vitamin B12. Appreciate Hematology Input Repeat Ferritin level on 09/15 626 Continue pantoprazole. Monitor CBC hb 9.7 today Acute DVT: Per patient's , patient has not been mobile since October 2021 He used to be able to walk with cane prior to that. Patient was not on any pharmacological DVT prophylaxis initially because of GI bleed. Patient complained of left arm pain and was scanned for DVT on 09/05/2022 evening which came back positive for DVT in mid to distal left brachial vein. Also now has superficial clot in right UE INR supratherapeutic most of the time Now therapeutic 2.8 (10/04/22) Monitor INR Decreased Coumadin to 0.5 mg daily Recommend INR check in 3 days and adjustment of warfarin as needed. inr 2.9 today Troponin elevation: Secondary to CHERYL Echo: Grossly normal LV chamber size. Grossly normal LV systolic function without all wall segments able to be visualized. 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 (2) CKD (chronic kidney disease) stage 4, GFR 15-29 ml/min: (3) DVT (deep venous thrombosis): (4) Morbid obesity: (5) Acute GI bleeding: (6) Elevated troponin: (7) Obesity hypoventilation syndrome: (8) Encephalopathy: Admission and Anticipated Discharge Date Admission Date: August 29, 2022 Subjective resting comfortably denies any complaints says eating ok afebrile denies chest pain or sob Review of Systems Review of Systems: ROS unremarkable Physical Exam Neck: normal visual inspection Respiratory: normal respiratory effort, lungs clear to auscultation Cardiovascular: RRR, no murmur, no edema Gastrointestinal (Abdomen): normal bowel sounds, soft, nontender, no hepatosplenomegaly Neurologic: alert and orieneted no facial droop speech clear moves extremities Results & Data Results & Data ([facility]) Vital Signs (Past 12 Hours) Vital Signs Temp Pulse Pulse Resp BP Pulse Ox O2 Del Method 10/06/22 19:16 36.6 C 89 18 137/79 96 Nasal Cannula 10/06/22 16:00 82 10/06/22 18:16 36.9 C 91 H 20 142/77 H 94 Nasal Cannula 10/06/22 17:20 94 Nasal Cannula 10/06/22 17:19 86 L Room Air 10/06/22 11:19 36.5 C 88 20 128/82 94 Nasal Cannula 10/06/22 08:46 36.6 C 91 H 20 172/83 H 94 Nasal Cannula O2 Flow Rate 10/06/22 19:16 3 10/06/22 16:00 10/06/22 18:16 2 10/06/22 17:20 3 10/06/22 17:19 10/06/22 11:19 3 10/06/22 08:46 2
[2022-10-06] MEDS: HYDROXYCHLOROQUINE SULFATE 200 MG TAB PO SCH (23:27)
[2022-10-07 08:42] LABS: INR 3.1 (0.9-1.1); Prothrombin Time 31.4 Seconds (9.0-12.0)
[2022-10-07] MEDS: METOPROLOL TARTRATE 25 MG TAB PO SCH ×2 (10:25→22:03)
[2022-10-07] MEDS: PANTOprazole 40 MG TAB PO SCH ×2 (10:25→22:04)
[2022-10-07] MEDS: TORSEMIDE 10 MG TAB PO SCH (10:25)
--- NOTE | 2022-10-07 10:36 | Hospitalist Progress Note ---
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 No recent antibiotic treatment. Patient was increasingly sleepy as per at presentation. Patient with hemoglobin of 5.9 at admission and received 2 units PRBC transfusion in the ED. Of note, patient moved back to [place] from [place] last June 2022, patient had 3 hospital confinements at [place] for kidney failure and hypoxia prior to return to [place] per his . 10/07/2022 Clinically much better today and denies any significant symptoms Appreciate nephrology input and recommendation As per Nephrology:3 distinct episodes of oliguric acute kidney injury due to ischemic ATN in setting of acute blood loss anemia, obligate diuresis. Given Severe Chronic Hypoxia he does seem very susceptible to Intermittent CHERYL. Now recovering from third episode of CHERYL For now no fluid limit Avoid nephrotoxic drugs Has been getting small dose of Lasix and the creatinine remains around 3 Can be discharged to rehab as per liability analyst We will have outpatient nephrology follow-up in 1 to 2 weeks Metabolic encephalopathy - resolved Multifactorial likely secondary to respiratory failure/hypercarbia Possible OHS/untreated RUTH Nocturnal hypoxia Chronic resp failure w/ hypercapnia and Hypoxia 09/08-09/09 Nocturnal pulse oximetry with 9 desaturation events, time is spent in desaturation greater than 5 minutes and time spent with saturation less than 89% is 1 hour 28-minute. 09/09 AM ABG with PCO2 of 55. Noncompliant with BiPAP use intermittently Appreciate pulmonology input Continue BiPAP while sleeping and at bedtime Mental status back to baseline Will be discharged to rehab this afternoon Need to have BiPAP at nighttime Acute on chronic anemia secondary to lower GI bleed Acute blood loss anemia Hb 5.9 on admission S/P 6 unit PRBC transfusion Iron level low --> s/p iron transfusion x 2. GI evaluated, status post EGD and colonoscopy. --08/31 EGD: No evidence of UGI bleeding, 2 duodenal polyps likely hyperplastic were biopsied with a cold forceps. --> HPE: 2 fragments of polypoid duodenal mucosa with nonspecific duodenitis. Negative for malignancy. --09/01 colonoscopy: The perianal and digital rectal exam were normal. A 10 mm polyp was found in the rectum which was removed with a cold snare and clips [MR conditional] were placed. HPE result is tubular adenoma, negative for high- grade dysplasia. Also diverticulosis in the sigmoid colon were noted. Nonbleeding internal hemorrhoids were noted. Recommendation is to repeat colonoscopy in 5 years for surveillance. Since no evidence of GI bleeding, recommended hematology evaluation. --09/01 peripheral smear: Reviewed FOBT negative, Ferritin > 700. Transfuse hemoglobin if less than 7 or for symptomatic anemia. Last transfusion on 09/02/22 Continue with folic acid and vitamin B12. Appreciate Hematology Input Repeat Ferritin level on 09/15 626 Continue pantoprazole. Hemoglobin remained stable at around 9.7 as of 10/06/2022 Acute DVT: Per patient's , patient has not been mobile since October 2021 He used to be able to walk with cane prior to that. Patient was not on any pharmacological DVT prophylaxis initially because of GI bleed. Patient complained of left arm pain and was scanned for DVT on 09/05/2022 e vening which came back positive for DVT in mid to distal left brachial vein. Also now has superficial clot in right UE INR supratherapeutic most of the time Now therapeutic 2.8 (10/04/22) Monitor INR-INR is 3.1 as of 10/07/2022 We will continue with current dose of Coumadin as an outpatient Advised to monitor INR to keep it around 2-3 and dose Coumadin accordingly Troponin elevation: Secondary to CHERYL Echo: Grossly normal LV chamber size. Grossly normal LV systolic function without all wall segments able to be visualized. Denies chest pain Vitamin D deficiency Vit D level is <7 Started on Vit D 50,000 U weekly on 09/17/22 Will be continued for 6 weeks and then regular oral dose Other chronic medical conditions: Ongoing tobacco abuse, HTN, HLD, morbid obesity, gout/rheumatoid arthritis, chronic back pain, medication noncompliance for HTN currently metoprolol [id number] bid and torsemide 20mg daily on plaquenil 200mg daily for Rheumatoid arthritis(home dose 400mg) No acute symptoms wants to take home with home care But patient is very deconditioned Accepted for rehab and the patient will be discharged today Patient does not want anybody else to be informed in the family about the discharge today (2) CKD (chronic kidney disease) stage 4, GFR 15-29 ml/min: (3) DVT (deep venous thrombosis): (4) Morbid obesity: (5) Acute GI bleeding: (6) Elevated troponin: (7) Obesity hypoventilation syndrome: (8) Encephalopathy: Admission and Anticipated Discharge Date Admission Date: August 29, 2022 Subjective 10/07/2022 The patient was seen and examined in medical telemetry unit He has been stable and denies any symptoms this morning He is willing to go to rehab today Denies any needs at this time Review of Systems Review of Systems: All systems reviewed and are unremarkable except as noted below Physical Exam Physical Exam: Lying in bed comfortably Constitutional: + morbidly obese; not ill appearing Eyes: PERRL, conjunctivae normal, anicteric sclerae ENMT: external ear and nose normal, oropharynx normal Neck: trachea midline, no thyromegaly Respiratory: no respiratory distress Auscultation: + diminished lung sounds (Likely secondary to thick guerra) and + crackles (Minimal crackles at the bases) Cardiovascular: Rate/Rhythm: regular rate and regular rhythm; not tachycardic Heart Sounds: normal S1 and normal S2; no murmur Extremities: + edema (Trace to 1+ edema bilaterally) Gastrointestinal (Abdomen): Inspection/Auscultation: + abdomen distended and normal bowel sounds Percussion/Palpation: abdomen soft; abdomen nontender Musculoskeletal: No acute arthritis in any joint Neurologic: Alert, awake and oriented x3. No focal sensory or no motor deficit appreciated. Overall movements are limited due to morbid obesity Psychiatric: A+Ox3, euthymic affect Lymphatic: no cervical or axillary lymphadenopathy Results & Data Results & Data ([facility]) Vital Signs (Past 12 Hours) Vital Signs Temp Pulse Resp BP Pulse Ox O2 Del Method O2 Flow Rate 10/07/22 07:34 36.9 C 83 20 128/80 95 Nasal Cannula 3 10/06/22 23:15 96 Nasal Cannula 3 10/07/22 04:21 36.6 C 83 16 126/82 96 Nasal Cannula 3 10/06/22 23:00 82 L Room Air 10/06/22 23:00 Nasal Cannula 3 10/06/22 23:31 94 Nasal Cannula 3 10/06/22 23:15 83 L Room Air Medications Administered Current Inpatient Medications Acetaminophen (Acetaminophen 325 Mg Tab) 650 mg PO Q4H PRN PRN Reason: Pain Stop: 10/30/22 12:22 Last Admin: 10/06/22 23:29 Dose: 650 mg Calcium Carbonate (Calcium Carbonate 500 Mg Chewable Tab) 500 mg PO TID PRN PRN Reason: Indigestion Stop: 11/02/22 17:49 Last Admin: 10/03/22 17:58 Dose: 500 mg Carvedilol (Carvedilol 6.25 Mg Tab) 6.25 mg PO BIDM [facility] Stop: 10/26/22 16:59 Last Admin: 10/02/22 08:48 Dose: 6.25 mg Ergocalciferol (Ergocalciferol 50,000 Units 1250 Mcg Cap) 50,000 units PO Q7D@0800 [facility] Stop: 10/17/22 07:59 Last Admin: 10/01/22 09:08 Dose: 50,000 units Hydroxychloroquine Sulfate (Hydroxychloroquine Sulfate 200 Mg Tab) 200 mg PO HS [facility] Stop: 11/01/22 20:59 Last Admin: 10/06/22 23:27 Dose: 200 mg Metoprolol Tartrate (Metoprolol Tartrate 25 Mg Tab) 25 mg PO BID [facility] Stop: 11/01/22 20:59 Last Admin: 10/06/22 23:27 Dose: 25 mg Pantoprazole Sodium (Pantoprazole 40 Mg Tab) 40 mg PO BID [facility] Stop: 10/08/22 20:59 Last Admin: 10/06/22 23:27 Dose: 40 mg Torsemide (Torsemide 10 Mg Tab) 20 mg PO QAM [facility] Stop: 11/05/22 11:29 Last Admin: 10/06/22 12:12 Dose: 20 mg Warfarin Sodium (Warfarin Sod 0.5 Mg Tab) 0.5 mg PO DAILY@1600 [facility] Stop: 11/02/22 15:59 Last Admin: 10/06/22 16:28 Dose: 0.5 mg
[2022-10-07] MEDS: WARFARIN SOD 0.5 MG TAB PO SCH (18:03)
[2022-10-07] MEDS: HYDROXYCHLOROQUINE SULFATE 200 MG TAB PO SCH (22:04)
[2022-10-08] MEDS: ACETAMINOPHEN 325 MG TAB PO PRN (02:29)
[2022-10-08] MEDS: oxyCODONE HCL IR 5 MG TAB (IMMEDIATE RELEASE) PO PRN ×3 (04:16→21:09)
[2022-10-08 04:51] LABS: Basophils # (auto) 0.08 K/uL (0-0.2); Basophils % (auto) 1.1 %; Eosinophils # (auto) 2.09 K/uL (0-0.50); Eosinophils % (auto) 29.1 %; Hematocrit (blood only) 31.7 % (40.1-51.0); Hemoglobin 9.7 g/dl (14.0-18.0); Immature Granulocytes # (auto) 0.09 K/uL (0.00-0.02); Immature Granulocytes % (auto) 1.3 %; Lymphocytes # (auto) 1.47 K/uL (1.2-3.4); Lymphocytes % (auto) 20.5 %; Mean Corpuscular Hemoglobin 28.2 pg (25.0-34.0); Mean Corpuscular Hgb Conc 30.6 g/dL (32.0-36.0); Mean Corpuscular Volume 92.2 fL (80.0-100.0); Mean Platelet Volume 9.3 fL (9.4-12.4); Monocytes # (auto) 0.59 K/uL (0.24-0.82); Monocytes % (auto) 8.2 %; Neutrophils # (auto) 2.86 K/uL (1.4-6.5); Neutrophils % (auto) 39.8 %; Platelet Count 275 K/uL (130-400); RDW Coefficient of Variation 16.4 % (11.5-14.5); RDW Standard Deviation 55.5 fL (36.4-46.3); Red Blood Count 3.44 M/uL (4.63-6.08); White Blood Count 7.18 K/ul (4.8-10.8)
[2022-10-08 05:02] LABS: INR 3.5 (0.9-1.1); Prothrombin Time 34.8 Seconds (9.0-12.0)
[2022-10-08] MEDS: TORSEMIDE 10 MG TAB PO SCH (08:19)
[2022-10-08] MEDS: ERGOCALCIFEROL 50,000 UNITS 1250 MCG CAP PO SCH (08:19)
[2022-10-08] MEDS: METOPROLOL TARTRATE 25 MG TAB PO SCH ×2 (08:19→21:10)
[2022-10-08] MEDS: PANTOprazole 40 MG TAB PO SCH (08:19)
--- NOTE | 2022-10-08 14:13 | Hospitalist Progress Note ---
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 No recent antibiotic treatment. Patient was increasingly sleepy as per at presentation. Patient with hemoglobin of 5.9 at admission and received 2 units PRBC transfusion in the ED. Of note, [place]22, patient had 3 hospital confinements at [place] for kidney failure and hypoxia prior to return to [place] per his . 10/07/2022 Clinically much better today and denies any significant symptoms Appreciate nephrology input and recommendation As per Nephrology:3 distinct episodes of oliguric acute kidney injury due to ischemic ATN in setting of acute blood loss anemia, obligate diuresis. Given Severe Chronic Hypoxia he does seem very susceptible to Intermittent CHERYL. Now recovering from third episode of CHERYL For now no fluid limit Avoid nephrotoxic drugs Has been getting small dose of Lasix and the creatinine remains around 3 Can be discharged to rehab as per bench molder We will have outpatient nephrology follow-up in 1 to 2 weeks Remains stable without any significant symptoms-awaiting transport to be discharged home Metabolic encephalopathy - resolved Multifactorial likely secondary to respiratory failure/hypercarbia Possible OHS/untreated RUTH Nocturnal hypoxia Chronic resp failure w/ hypercapnia and Hypoxia 09/08-09/09 Nocturnal pulse oximetry with 9 desaturation events, time is spent in desaturation greater than 5 minutes and time spent with saturation less than 89% is 1 hour 28-minute. 09/09 AM ABG with PCO2 of 55. Noncompliant with BiPAP use intermittently Appreciate pulmonology input Continue BiPAP while sleeping and at bedtime Mental status back to baseline Will be discharged to rehab this afternoon The patient is aware that he will need to have an outpatient sleep study as soon as possible following discharge Acute on chronic anemia secondary to lower GI bleed Acute blood loss anemia Hb 5.9 on admission S/P 6 unit PRBC transfusion Iron level low --> s/p iron transfusion x 2. GI evaluated, status post EGD and colonoscopy. --08/31 EGD: No evidence of UGI bleeding, 2 duodenal polyps likely hyperplastic were biopsied with a cold forceps. --> HPE: 2 fragments of polypoid duodenal mucosa with nonspecific duodenitis. Negative for malignancy. --09/01 colonoscopy: The perianal and digital rectal exam were normal. A 10 mm polyp was found in the rectum which was removed with a cold snare and clips [MR conditional] were placed. HPE result is tubular adenoma, negative for high- grade dysplasia. Also diverticulosis in the sigmoid colon were noted. Nonbleeding internal hemorrhoids were noted. Recommendation is to repeat colonoscopy in 5 years for surveillance. Since no evidence of GI bleeding, recommended hematology evaluation. --09/01 peripheral smear: Reviewed FOBT negative, Ferritin > 700. Transfuse hemoglobin if less than 7 or for symptomatic anemia. Last transfusion on 09/02/22 Continue with folic acid and vitamin B12. Appreciate Hematology Input Repeat Ferritin level on 09/15 626 Continue pantoprazole. Hemoglobin remained stable at around 9.7 as of 10/06/2022 Acute DVT: Per patient's , patient has not been mobile since October 2021 He used to be able to walk with cane prior to that. Patient was not on any pharmacological DVT prophylaxis initially because of GI bleed. Patient complained of left arm pain and was scanned for DVT on 09/05/2022 evening which came back positive for DVT in mid to distal left brachial vein. Also now has superficial clot in right UE INR supratherapeutic most of the time Now therapeutic 2.8 (10/04/22) Monitor INR-INR is 3.1 as of 10/07/2022 We will continue with current dose of Coumadin as an outpatient Advised to monitor INR to keep it around 2-3 and dose Coumadin accordingly Troponin elevation: Secondary to CHERYL Echo: Grossly normal LV chamber size. Grossly normal LV systolic function without all wall segments able to be visualized. Denies chest pain Vitamin D deficiency Vit D level is <7 Started on Vit D 50,000 U weekly on 09/17/22 Will be continued for 6 weeks and then regular oral dose Other chronic medical conditions: Ongoing tobacco abuse, HTN, HLD, morbid obesity, gout/rheumatoid arthritis, chronic back pain, medication noncompliance for HTN currently metoprolol [id number] bid and torsemide 20mg daily on plaquenil 200mg daily for Rheumatoid arthritis(home dose 400mg) No acute symptoms wants to take home with home care But patient is very deconditioned He will be going home with home health No transport was available yesterday and he will be going home tomorrow (2) CKD (chronic kidney disease) stage 4, GFR 15-29 ml/min: (3) DVT (deep venous thrombosis): (4) Morbid obesity: (5) Acute GI bleeding: (6) Elevated troponin: (7) Obesity hypoventilation syndrome: (8) Encephalopathy: Admission and Anticipated Discharge Date Admission Date: August 29, 2022 Subjective 10/07/2022 The patient was seen and examined in medical telemetry unit He has been stable and denies any symptoms this morning He is willing to go to rehab today Denies any needs at this time 10/08/2022 The patient was seen and examined in medical telemetry unit He has been stable and denies any need as of today Denies any significant symptoms Review of Systems Review of Systems: All systems reviewed and are unremarkable except as noted below Physical Exam Physical Exam: Lying in bed comfortably Constitutional: + morbidly obese; not ill appearing Eyes: PERRL, conjunctivae normal, anicteric sclerae ENMT: external ear and nose normal, oropharynx normal Neck: trachea midline, no thyromegaly Respiratory: no respiratory distress Auscultation: + diminished lung sounds (Likely secondary to thick guerra) and + crackles (Minimal crackles at the bases) Cardiovascular: Rate/Rhythm: regular rate and regular rhythm; not tachycardic Heart Sounds: normal S1 and normal S2; no murmur Extremities: + edema (Trace to 1+ edema bilaterally) Gastrointestinal (Abdomen): Inspection/Auscultation: + abdomen distended and normal bowel sounds Percussion/Palpation: abdomen soft; abdomen nontender Neurologic: normal touch/pain/proprioception and moves all extremities; no focal motor deficits Psychiatric: A+Ox3, euthymic affect Lymphatic: no cervical or axillary lymphadenopathy Results & Data Results & Data ([facility]) Vital Signs (Past 12 Hours) Vital Signs Temp Pulse Resp BP Pulse Ox O2 Del Method O2 Flow Rate 10/08/22 11:15 36.8 C 76 20 107/65 92 Nasal Cannula 2 10/08/22 07:47 36.4 C L 86 20 130/83 93 Nasal Cannula 2 Medications Administered Current Inpatient Medications Acetaminophen (Acetaminophen 325 Mg Tab) 650 mg PO Q4H PRN PRN Reason: Pain Stop: 10/30/22 12:22 Last Admin: 10/08/22 02:29 Dose: 650 mg Calcium Carbonate (Calcium Carbonate 500 Mg Chewable Tab) 500 mg PO TID PRN PRN Reason: Indigestion Stop: 11/02/22 17:49 Last Admin: 10/03/22 17:58 Dose: 500 mg Carvedilol (Carvedilol 6.25 Mg Tab) 6.25 mg PO BIDM [facility] Stop: 10/26/22 16:59 Last Admin: 10/02/22 08:48 Dose: 6.25 mg Ergocalciferol (Ergocalciferol 50,000 Units 1250 Mcg Cap) 50,000 units PO Q7D@0800 [facility] Stop: 10/17/22 07:59 Last Admin: 10/08/22 08:19 Dose: 50,000 units Hydroxychloroquine Sulfate (Hydroxychloroquine Sulfate 200 Mg Tab) 200 mg PO HS [facility] Stop: 11/01/22 20:59 Last Admin: 10/07/22 22:04 Dose: 200 mg Metoprolol Tartrate (Metoprolol Tartrate 25 Mg Tab) 25 mg PO BID [facility] Stop: 11/01/22 20:59 Last Admin: 10/08/22 08:19 Dose: 25 mg Oxycodone HCl (Oxycodone Hcl Ir 5 Mg Tab (Immediate Release)) 5 mg PO Q4H PRN PRN Reason: Pain Stop: 10/22/22 04:09 Last Admin: 10/08/22 04:16 Dose: 5 mg Pantoprazole Sodium (Pantoprazole 40 Mg Tab) 40 mg PO BID [facility] Stop: 10/08/22 20:59 Last Admin: 10/08/22 08:19 Dose: 40 mg Torsemide (Torsemide 10 Mg Tab) 20 mg PO QAM [facility] Stop: 11/05/22 11:29 Last Admin: 10/08/22 08:19 Dose: 20 mg Warfarin Sodium (Warfarin Sod 0.5 Mg Tab) 0.5 mg PO DAILY@1600 [facility] Stop: 11/02/22 15:59 Last Admin: 10/07/22 18:03 Dose: 0.5 mg
[2022-10-08] MEDS: HYDROXYCHLOROQUINE SULFATE 200 MG TAB PO SCH (21:10)
[2022-10-09 07:37] LABS: Basophils # (auto) 0.07 K/uL (0-0.2); Eosinophils # (auto) 2.17 K/uL (0-0.50); Eosinophils % (auto) 30.3 %; Hematocrit (blood only) 35.4 % (40.1-51.0); Hemoglobin 10.3 g/dl (14.0-18.0); Immature Granulocytes # (auto) 0.06 K/uL (0.00-0.02); Immature Granulocytes % (auto) 0.8 %; Lymphocytes # (auto) 1.55 K/uL (1.2-3.4); Lymphocytes % (auto) 21.6 %; Mean Corpuscular Hgb Conc 29.1 g/dL (32.0-36.0); Mean Corpuscular Volume 96.2 fL (80.0-100.0); Mean Platelet Volume 9.6 fL (9.4-12.4); Monocytes # (auto) 0.56 K/uL (0.24-0.82); Monocytes % (auto) 7.8 %; Neutrophils # (auto) 2.76 K/uL (1.4-6.5); Neutrophils % (auto) 38.5 %; Platelet Count 285 K/uL (130-400); RDW Coefficient of Variation 16.3 % (11.5-14.5); RDW Standard Deviation 58.2 fL (36.4-46.3); Red Blood Count 3.68 M/uL (4.63-6.08); White Blood Count 7.17 K/ul (4.8-10.8)
[2022-10-09 08:02] LABS: BUN Creatinine Ratio 14.3 (10-20); Calcium 10.9 mg/dl (8.5-10.1); Creatinine Clr Calc Pharmacy 40.8 ml/min; Est GFR (African American) 20.3 ml/min; Est GFR (Non-African American) 17.5 ml/min; Potassium 3.9 mmol/L (3.5-5.1)
[2022-10-09 08:06] LABS: INR 3.2 (0.9-1.1); Prothrombin Time 31.6 Seconds (9.0-12.0)
--- NOTE | 2022-10-09 09:35 | Hospitalist Progress Note ---
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 No recent antibiotic treatment. Patient was increasingly sleepy as per at presentation. Patient with hemoglobin of 5.9 at admission and received 2 units PRBC transfusion in the ED. Of note, patient moved back to [place] from [place] last June 2022, patient had 3 hospital confinements at [place] for kidney failure and hypoxia prior to return to NH per his . 10/07/2022 Clinically much better today and denies any significant symptoms Appreciate nephrology input and recommendation As per Nephrology:3 distinct episodes of oliguric acute kidney injury due to ischemic ATN in setting of acute blood loss anemia, obligate diuresis. Given Severe Chronic Hypoxia he does seem very susceptible to Intermittent CHERYL. Now recovering from third episode of CHERYL For now no fluid limit Avoid nephrotoxic drugs Has been getting small dose of Lasix and the creatinine remains around 3 Can be discharged to rehab as per director of instruction We will have outpatient nephrology follow-up in 1 to 2 weeks Remains stable without any significant symptoms-awaiting transport to be discharged home Creatinine remains high at 3.63 but has been stable Metabolic encephalopathy - resolved Multifactorial likely secondary to respiratory failure/hypercarbia Possible OHS/untreated RUTH Nocturnal hypoxia Chronic resp failure w/ hypercapnia and Hypoxia 09/08-09/09 Nocturnal pulse oximetry with 9 desaturation events, time is spent in desaturation greater than 5 minutes and time spent with saturation less than 89% is 1 hour 28-minute. 09/09 AM ABG with PCO2 of 55. Noncompliant with BiPAP use intermittently Appreciate pulmonology input Continue BiPAP while sleeping and at bedtime Mental status back to baseline Will be discharged to rehab this afternoon The patient is aware that he will need to have an outpatient sleep study as soon as possible following discharge No confusion Acute on chronic anemia secondary to lower GI bleed Acute blood loss anemia Hb 5.9 on admission S/P 6 unit PRBC transfusion Iron level low --> s/p iron transfusion x 2. GI evaluated, status post EGD and colonoscopy. --08/31 EGD: No evidence of UGI bleeding, 2 duodenal polyps likely hyperplastic were biopsied with a cold forceps. --> HPE: 2 fragments of polypoid duodenal mucosa with nonspecific duodenitis. Negative for malignancy. --09/01 colonoscopy: The perianal and digital rectal exam were normal. A 10 mm polyp was found in the rectum which was removed with a cold snare and clips [MR conditional] were placed. HPE result is tubular adenoma, negative for high- grade dysplasia. Also diverticulosis in the sigmoid colon were noted. Nonbleeding internal hemorrhoids were noted. Recommendation is to repeat colonoscopy in 5 years for surveillance. Since no evidence of GI bleeding, recommended hematology evaluation. --09/01 peripheral smear: Reviewed FOBT negative, Ferritin > 700. Transfuse hemoglobin if less than 7 or for symptomatic anemia. Last transfusion on 09/02/22 Continue with folic acid and vitamin B12. Appreciate Hematology Input Repeat Ferritin level on 09/15 626 Continue pantoprazole. Hemoglobin remained stable at around 9.7 as of 10/06/2022 Hemoglobin is 10.3 as of 10/09/2019 Acute DVT: Per patient's , patient has not been mobile since October 2021 He used to be able to walk with cane prior to that. Patient was not on any pharmacological DVT prophylaxis initially because of GI bleed. Patient complained of left arm pain and was scanned for DVT on 09/05/2022 evening which came back positive for DVT in mid to distal left brachial vein. Also now has superficial clot in right UE INR supratherapeutic most of the time Now therapeutic 2.8 (10/04/22) Monitor INR-INR is 3.1 as of 10/07/2022 We will continue with current dose of Coumadin as an outpatient Advised to monitor INR to keep it around 2-3 and dose Coumadin accordingly INR is 3.2 today-advised to omit the dose for today and have regular dose from tomorrow Follow-up as an outpatient to the coagulation clinic Troponin elevation: Secondary to CHERYL Echo: Grossly normal LV chamber size. Grossly normal LV systolic function without all wall segments able to be visualized. Denies chest pain Vitamin D deficiency Vit D level is <7 Started on Vit D 50,000 U weekly on 09/17/22 Will be continued for 6 weeks and then regular oral dose Other chronic medical conditions: Ongoing tobacco abuse, HTN, HLD, morbid obesity, gout/rheumatoid arthritis, chronic back pain, medication noncompliance for HTN currently metoprolol [id number] bid and torsemide 20mg daily on plaquenil 200mg daily for Rheumatoid arthritis(home dose 400mg) No acute symptoms wants to take home with home care But patient is very deconditioned He will be going home with home health Will be discharged home this morning (2) CKD (chronic kidney disease) stage 4, GFR 15-29 ml/min: (3) DVT (deep venous thrombosis): (4) Morbid obesity: (5) Acute GI bleeding: (6) Elevated troponin: (7) Obesity hypoventilation syndrome: (8) Encephalopathy: Admission and Anticipated Discharge Date Admission Date: August 29, 2022 Subjective 10/07/2022 The patient was seen and examined in medical telemetry unit He has been stable and denies any symptoms this morning He is willing to go to rehab today Denies any needs at this time 10/08/2022 The patient was seen and examined in medical telemetry unit He has been stable and denies any need as of today Denies any significant symptoms 10/09/2022 The patient was seen and examined in medical telemetry unit He has been stable and denies any significant symptoms today Will be discharged home with home health this morning Review of Systems Review of Systems: All systems reviewed and are unremarkable except as noted below Physical Exam Physical Exam: Lying in bed comfortably Constitutional: + morbidly obese; not ill appearing Eyes: PERRL, conjunctivae normal, anicteric sclerae ENMT: external ear and nose normal, oropharynx normal Neck: trachea midline, no thyromegaly Respiratory: no respiratory distress Auscultation: + diminished lung sounds (Likely secondary to thick guerra) and + crackles (Minimal crackles at the bases) Cardiovascular: Rate/Rhythm: regular rate and regular rhythm; not tachycardic Heart Sounds: normal S1 and normal S2; no murmur Extremities: + edema (Trace to 1+ edema bilaterally) Gastrointestinal (Abdomen): Inspection/Auscultation: + abdomen distended and normal bowel sounds Percussion/Palpation: abdomen soft; abdomen nontender Musculoskeletal: No acute arthritis in any joint Neurologic: normal touch/pain/proprioception and moves all extremities; no focal motor deficits Psychiatric: A+Ox3, euthymic affect Lymphatic: no cervical or axillary lymphadenopathy Results & Data Results & Data ([facility]) Vital Signs (Past 12 Hours) Vital Signs Temp Pulse Resp BP Pulse Ox O2 Del Method O2 Flow Rate 10/09/22 08:00 37.2 C 100 H 18 107/73 92 Room Air 10/09/22 03:57 36.6 C 93 H 18 129/85 94 Oxymask 3 10/08/22 23:44 Oxymask 3 10/08/22 23:04 36.5 C 84 16 136/74 90 Oxymask 3 Laboratory Results Short CBC 10/09/22 Range/Units 06:59 WBC 7.17 (4.8-10.8) K/ul Hgb 10.3 L (14.0-18.0) g/dl Hct 35.4 L (40.1-51.0) % Plt Count 285 (130-400) K/uL BMP 10/09/22 06:59 Sodium 138 Potassium 3.9 Chloride 99 Carbon Dioxide 37 H BUN 52 H Creatinine 3.63 H Glucose 85 Calcium 10.9 H Medications Administered Current Inpatient Medications Acetaminophen (Acetaminophen 325 Mg Tab) 650 mg PO Q4H PRN PRN Reason: Pain Stop: 10/30/22 12:22 Last Admin: 10/08/22 02:29 Dose: 650 mg Calcium Carbonate (Calcium Carbonate 500 Mg Chewable Tab) 500 mg PO TID PRN PRN Reason: Indigestion Stop: 11/02/22 17:49 Last Admin: 10/03/22 17:58 Dose: 500 mg Carvedilol (Carvedilol 6.25 Mg Tab) 6.25 mg PO BIDM [facility] Stop: 10/26/22 16:59 Last Admin: 10/02/22 08:48 Dose: 6.25 mg Ergocalciferol (Ergocalciferol 50,000 Units 1250 Mcg Cap) 50,000 units PO Q7D@0800 [facility] Stop: 10/17/22 07:59 Last Admin: 10/08/22 08:19 Dose: 50,000 units Hydroxychloroquine Sulfate (Hydroxychloroquine Sulfate 200 Mg Tab) 200 mg PO HS [facility] Stop: 11/01/22 20:59 Last Admin: 10/08/22 21:10 Dose: 200 mg Metoprolol Tartrate (Metoprolol Tartrate 25 Mg Tab) 25 mg PO BID [facility] Stop: 11/01/22 20:59 Last Admin: 10/08/22 21:10 Dose: 25 mg Oxycodone HCl (Oxycodone Hcl Ir 5 Mg Tab (Immediate Release)) 5 mg PO Q4H PRN PRN Reason: Pain Stop: 10/22/22 04:09 Last Admin: 10/08/22 21:09 Dose: 5 mg Torsemide (Torsemide 10 Mg Tab) 20 mg PO QAM [facility] Stop: 11/05/22 11:29 Last Admin: 10/08/22 08:19 Dose: 20 mg Warfarin Sodium (Warfarin Sod 0.5 Mg Tab) 0.5 mg PO DAILY@1600 [facility] Stop: 11/02/22 15:59 Last Admin: 10/07/22 18:03 Dose: 0.5 mg
[2022-10-09] MEDS: METOPROLOL TARTRATE 25 MG TAB PO SCH (10:07)
[2022-10-09] MEDS: TORSEMIDE 10 MG TAB PO SCH (10:08)
--- NOTE | 2022-10-17 07:56 | Discharge Summary ---
Date of Service October 09, 2022 Admission HPI Per Admitting Provider History obtained from patient, family, and records. Limited history from patient secondary to lethargy Medical history significant for hypertension, hyperlipidemia, CRI (baseline creatinine 1.4 ), chronic anemia (baseline hemoglobin of 9 ), morbid obesity, possible RUTH as per records, gout, rheumatoid arthritis, chronic back pain, medication noncompliance as per records, ongoing tobacco abuse. Patient moved back to [place] from [place] last June 2022. 3 hospital confinements at [place] for kidney failure and hypoxia prior to return to [place]. 3 days ago, patient started feeling sick as per . Nausea, vomiting, bloody diarrhea. Increasing weakness. No known sick contacts. No recent antibiotic Rx. No recent travel. Patient increasingly sleepy as per . No headache complaints as per . Patient brought to the ER for evaluation. Cefepime administered at the ER for possible infection. 2 units PRBC ordered to be transfused at the ER with hemoglobin of 5.9. Episodic apnea at the ER. Medical History as above Surgical History : Toe surgery, left breast biopsy, knee surgeries, tonsillectomy/adenoidectomy, dental surgery Family History : DM, hypertension Personal/Social history : 5 cigarettes a day, no EtOH intake, disabled Admission Exam Per Admitting Provider Physical Exam: GENERAL: uncomfortable, lethargic, episodic apnea, minimal respiratory distress SKIN: Pallor, warm HEENT: Pale palpebral conjunctivae, no ptosis, dry buccal mucosa, nasal cannula in place NECK : Supple, short neck, no tenderness CHEST : CTA, no tenderness HEART : Decreased breath sounds, scattered expiratory wheezes, no obvious murmurs ABDOMEN: Some distention, nontender EXTREMITIES : Bilateral LE swelling , no LE tenderness, no other conspicuous deformities noted NEUROLOGIC : Lethargic, no facial asymmetry, gait and stance not assessed Principal Diagnosis Anemia, GI bleed Hypoxia/respiratory failure, metabolic encephalopathy CHERYL on CKD Upper extremity DVT Elevated troponin Discharge Exam Lying in bed comfortably Constitutional + morbidly obese; not ill appearing Eyes PERRL, conjunctivae normal, anicteric sclerae ENMT external ear and nose normal, oropharynx normal Neck trachea midline, no thyromegaly Respiratory no respiratory distress Auscultation: + diminished lung sounds (Likely secondary to thick guerra) and + crackles (Minimal crackles at the bases) Cardiovascular Rate/Rhythm: regular rate and regular rhythm; not tachycardic Heart Sounds: normal S1 and normal S2; no murmur Extremities: + edema (Trace to 1+ edema bilaterally) Gastrointestinal (Abdomen) Inspection/Auscultation: + abdomen distended and normal bowel sounds Percussion/Palpation: abdomen soft; abdomen nontender Neurologic normal touch/pain/proprioception and moves all extremities; no focal motor deficits Psychiatric A+Ox3, euthymic affect Lymphatic no cervical or axillary lymphadenopathy Discharge Data Allergies Allergy/AdvReac Type Severity Reaction Status Date / Time Iodinated Contrast Media Allergy Hives Verified 10/12/22 15:49 iodine Allergy Hives Verified 10/12/22 15:49 Consultations 08/29/22 05:01 ED Decision to Admit Stat 08/29/22 07:59 Consult Gastroenterology Routine Consult Pulmonology Routine 08/29/22 22:23 Consult Nephrology Routine 09/01/22 13:37 Consult Hematology Routine 09/12/22 13:46 Consult Palliative Care Routine 09/15/22 12:48 Consult Psychiatry Routine Procedures Performed Operation Date: 08/31/22 16:45 Actual Procedures p EGD Biopsy Cytology - Danita Mckenzie MD Operation Date: 09/01/22 16:30 Actual Procedures p Colonoscopy Polypectomy - Danita Mckenzie MD Ordered Studies 08/29/22 03:08 CT abd pelvis wo con Urgent CT chest diagnostic wo con Urgent 08/29/22 22:23 US Renal Bladder [US renal/blad retro comp] Routine 09/05/22 20:52 US venous doppler UE LT Urgent 09/13/22 11:27 US venous doppler UE RT Urgent Hospital Course (1) CHERYL (acute kidney injury): Ongoing care since admission Patient is a 56 yr male with H/O HTN, HLD, CKD [baseline creatinine 1.4], chronic anemia [baseline hemoglobin 9], morbid obesity, possible RUTH as per records, gout, rheumatoid arthritis, chronic back pain, medication noncompliance as per records, ongoing tobacco abuse presented to our ED 08/29/2022 with complaint of feeling sick for 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 No recent antibiotic treatment. Patient was increasingly sleepy as per at presentation. Patient with hemoglobin of 5.9 at admission and received 2 units PRBC transfusion in the ED. Of note, patient moved back to [place] from [place] last June 2022, patient had 3 hospital confinements at [place] for kidney failure and hypoxia prior to return to [place] per his . 10/07/2022 Clinically much better today and denies any significant symptoms Appreciate nephrology input and recommendation As per Nephrology:3 distinct episodes of oliguric acute kidney injury due to ischemic ATN in setting of acute blood loss anemia, obligate diuresis. Given Severe Chronic Hypoxia he does seem very susceptible to Intermittent CHERYL. 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 09/09 AM ABG with PCO2 of 55. Noncompliant with BiPAP use intermittently Appreciate pulmonology input Continue BiPAP while sleeping and at bedtime Mental status back to baseline Will be discharged to rehab this afternoon The patient is aware that he will need to have an outpatient sleep study as soon as possible following discharge No confusion Acute on chronic anemia secondary to lower GI bleed Acute blood loss anemia Hb 5.9 on admission S/P 6 unit PRBC transfusion Iron level low --> s/p iron transfusion x 2. GI evaluated, status post EGD and colonoscopy. --08/31 EGD: No evidence of UGI bleeding, 2 duodenal polyps likely hyperplastic were biopsied with a cold forceps. --> HPE: 2 fragments of polypoid duodenal mucosa with nonspecific duodenitis. Negative for malignancy. --09/01 colonoscopy: The perianal and digital rectal exam were normal. A 10 mm polyp was found in the rectum which was removed with a cold snare and clips [MR conditional] were placed. HPE result is tubular adenoma, negative for high- grade dysplasia. Also diverticulosis in the sigmoid colon were noted. Nonbleeding internal hemorrhoids were noted. Recommendation is to repeat colonoscopy in 5 years for surveillance. Since no evidence of GI bleeding, recommended hematology evaluation. --09/01 peripheral smear: Reviewed FOBT negative, Ferritin > 700. Transfuse hemoglobin if less than 7 or for symptomatic anemia. Last transfusion on 09/02/22 Continue with folic acid and vitamin B12. Appreciate Hematology Input Repeat Ferritin level on 09/15 626 Continue pantoprazole. Hemoglobin remained stable at around 9.7 as of 10/06/2022 Hemoglobin is 10.3 as of 10/09/2019 Acute DVT: Per patient's , patient has not been mobile since October 2021 He used to be able to walk with cane prior to that. Patient was not on any pharmacological DVT prophylaxis initially because of GI bleed. Patient complained of left arm pain and was scanned for DVT on 09/05/2022 evening which came back positive for DVT in mid to distal left brachial vein. Also now has superficial clot in right UE INR supratherapeutic most of the time Now therapeutic 2.8 (10/04/22) Monitor INR-INR is 3.1 as of 10/07/2022 We will continue with current dose of Coumadin as an outpatient Advised to monitor INR to keep it around 2-3 and dose Coumadin accordingly INR is 3.2 today-advised to omit the dose for today and have regular dose from tomorrow Follow-up as an outpatient to the coagulation clinic Troponin elevation: Secondary to CHERYL Echo: Grossly normal LV chamber size. Grossly normal LV systolic function without all wall segments able to be visualized. Denies chest pain Vitamin D deficiency Vit D level is <7 Started on Vit D 50,000 U weekly on 09/17/22 Will be continued for 6 weeks and then regular oral dose Other chronic medical conditions: Ongoing tobacco abuse, HTN, HLD, morbid obesity, gout/rheumatoid arthritis, chronic back pain, medication noncompliance for HTN currently metoprolol [id number] bid and torsemide 20mg daily on plaquenil 200mg daily for Rheumatoid arthritis(home dose 400mg) No acute symptoms wants to take home with home care But patient is very deconditioned He will be going home with home health Will be discharged home this morning (2) CKD (chronic kidney disease) stage 4, GFR 15-29 ml/min: (3) DVT (deep venous thrombosis): (4) Morbid obesity: (5) Acute GI bleeding: (6) Elevated troponin: (7) Obesity hypoventilation syndrome: (8) Encephalopathy: Total Time Total Time Spent Total Time Spent (In Minutes): 35 minutes Discharge Plan Discharge Items Patient Disposition: Home - Home Health Services Reason For Visit: RESP FAILURE Discharge Diagnosis: Anemia, GI bleed Hypoxia/respiratory failure, metabolic encephalopathy CHERYL on CKD Upper extremity DVT Elevated troponin Condition on Discharge: Fair Activity: Per Instructions section Non-emergency contact: Primary Care Provider and [employer] Call non-emergency contact if: you have any medication questions and your symptoms worsen Diet: Dialysis Renal Addtl Attending Provider Instructions: Please take precautions to avoid falls Take your medications as advised Please have regular follow-up with the coagulation clinic Use oxygen as advised You need to have a sleep study as an outpatient Please do not take your Coumadin today and start taking regularly from tomorrow Have regular follow-up with coagulation clinic as before Pending Studies at Discharge: No Stand-Alone Forms: Smoking Cessation Medications and DC Order Prescriptions: New calcium carbonate [Tums] 200 mg calcium (500 mg) Tablet,Chewable 500 mg PO TID PRN (Reason: dyspepsia) Qty: 30 0RF warfarin 1 mg Tablet 0.5 mg PO DAILY@1600 30 Days Qty: 30 0RF hydroxychloroquine 200 mg Tablet 200 mg PO HS 30 Days Qty: 30 0RF metoprolol tartrate 25 mg Tablet 25 mg PO BID 30 Days Qty: 60 0RF pantoprazole 40 mg Tablet,Delayed Release (Dr/Ec) 40 mg PO BID 30 Days Qty: 60 0RF ergocalciferol (vitamin D2) 1,250 mcg (50,000 unit) Capsule 50,000 unit PO Q7D@0800 30 Days Qty: 4 0RF carvedilol 12.5 mg tablet 12.5 mg PO BID Qty: 60 0RF Rx Instructions: must administer with a meal/food torsemide 20 mg tablet 20 mg PO QAM Qty: 30 0RF Continued verapamil 240 mg Capsule,Ext Rel. Pellets 24 Hr 240 mg PO QAM Discontinued carvedilol 6.25 mg Tablet 12.5 mg PO AMHS Rx Instructions: must administer with a meal/food Discharge Orders: Discharge Order (Routine); Ordered 10/09/22 Ordered By: Laura Young Admission Data Admit Date/Time: 08/29/22 06:13 Attending Provider: Laura Young Admit Provider: Black Duque Primary Care Provider: King Holcomb Other Providers: [place] ; [facility], ; Nicole Ramos at [place] ; [facility] ; Josee Cedillo ; Jan Balderas ; Black Duque ; Aminah Sheets ; Colt Burgos ; Mallika Johnson ; Eveline Aleman ; Farzana Pierre ; Bree Hutson ; Justin,Scott ; Leeanne Clements ; Juma Palacios ; Chanell Lopez ; Pablo Tobias ; [place] ; Magaly Oneill ; Harriet Murray ; Isaura Cannon ; Mayi Buckner ; Danita Mckenzie ; Edison Mendoza ; Daniel López ; Rosalinda Guzman ; Tammy Hernandez Jr ; Jethro Cordova ; Ross Alonso ; Leon Dubon ; Wisam Wray ; Aura Bowens ; Nestor Glez ; Ryan Veras ; Nina Rubin ; Marni Vásquez ; Ayana Morgan ; [facility] ; Gustavo Dawkins Other Interventions: Discharge Summary Assessment (RN) Last Done: 10/09/22 11:06
== END 2022-10-09 11:20 | disposition home health service (06) | DRG 377 ==
LOC: ED 00:25 → SUATTDRO 06:13 → EDINP 06:13 → 2E 16:38 → 2W 10-02 00:17

== ENCOUNTER 2022-10-12 03:51 | Inpatient (IN) ==
--- NOTE | 2022-10-12 04:19 | Emergency Department Note ---
History of Present Illness General Chief complaint: Illness Stated complaint: Illness Time Seen by Provider: 10/12/22 03:53 History of Present Illness 57-year-old male with reported weakness. Patient was discharged yesterday had a history of low hemoglobin and acute kidney injury. Patient had physical therapy at the house yesterday and it was reported that he failed physical therapy and the physical therapist told his that she could not care for him. Of note the patient was offered rehab or a shelter facility prior to discharge but they refused. Patient has no current complaints right now except for generalized weakness Home Medications Medication Instructions Recorded Confirmed Type verapamil 240 mg 24 hr 240 mg PO QAM 08/29/22 08/29/22 History capsule,extended release calcium carbonate 200 mg calcium 500 mg PO TID PRN dyspepsia #30 10/07/22 Rx (500 mg) chewable tablet (Tums) tabs carvedilol 12.5 mg tablet 12.5 mg PO BID #60 tabs 10/07/22 Rx ergocalciferol (vitamin D2) 1,250 50,000 unit PO Q7D@0800 30 days #4 10/07/22 Rx mcg (50,000 unit) capsule caps hydroxychloroquine 200 mg tablet 200 mg PO HS 30 days #30 tabs 10/07/22 Rx metoprolol tartrate 25 mg tablet 25 mg PO BID 30 days #60 tabs 10/07/22 Rx pantoprazole 40 mg tablet,delayed 40 mg PO BID 30 days #60 tabs 10/07/22 Rx release torsemide 20 mg tablet 20 mg PO QAM #30 tabs 10/07/22 Rx warfarin 1 mg tablet 0.5 mg PO DAILY@1600 30 days #30 10/07/22 Rx tabs Allergies Allergy/AdvReac Type Severity Reaction Status Date / Time Iodinated Contrast Media Allergy Hives Verified 08/31/22 10:32 iodine Allergy Hives Verified 08/31/22 10:32 Past Med/Surg History Medical History CHERYL (acute kidney injury) Anemia CKD (chronic kidney disease) stage 4, GFR 15-29 ml/min Morbid obesity Obesity hypoventilation syndrome Social History Smoking Status: Never smoker Hx Alcohol Use: No Hx Substance Use: No Preferred Language: Vietnamese Communication Ability: Unable Corporate Coordinator Required: No Beliefs That Will Affect Care: None Current Living Situation: Spouse Feels Safe at Home: Yes Assistive Devices: Scooter/Electric Scooter and Walker Review of Systems A total of 10 systems reviewed and were otherwise negative Neurologic: + generalized weakness Physical Exam Vital Signs Vital Signs - 24 hr 10/12/22 03:56 10/12/22 03:56 Temperature 37 C Temperature Source Oral Pulse Rate 72 Respiratory Rate 24 Respiratory Effort / Characteristics Non-Labored Respiratory Depth Normal Blood Pressure 136/72 Blood Pressure Mean 93 Pulse Oximetry 85 L 96 Oxygen Delivery Method Room Air Nasal Cannula Oxygen Flow Rate 3 Sepsis Recent Fever Within 48 Hours No Sepsis New/Unexplained Change in Mental Status No Sepsis Action Taken by Nursing No Action Required GENERAL: Patient is awake alert in no acute distress patient is resting comfortably and showing no signs of anxiety EYES: The conjunctivae are clear. The pupils are round and reactive. EARS, NOSE, MOUTH AND THROAT: The nose is without any evidence of any deformity. Mucous membranes are moist. Tongue is midline. NECK: The neck is nontender and supple. RESPIRATORY: Normal respiratory effort is noted there is no evidence of wheezing rhonchi or rales CARDIOVASCULAR: Regular rate and rhythm noted there no murmurs rubs or gallops normal S1 normal S2. GASTROINTESTINAL: The abdomen is soft. Abdomen is nontender. Morbidly obese PELVIS: The Pelvis is stable. No tenderness to palpation is noted. BACK: No midline tenderness or or step-off noted range of motion in flexion extension as well as rotation no signs of muscle spasm noted MUSCULOSKELETAL/EXTREMITIES: There is no evidence of gross deformity full range of motion is noted in the hips and shoulders. SKIN: There is no obvious evidence of any rash. There are no petechiae, pallor or cyanosis noted. NEUROLOGIC: Patient is awake alert and oriented x3 Course Reevaluation(s) Reevaluation #1: Patient is resting in no distress, will be admitted for weakness Time: 04:19 Consultations Consultation #1: [facility] Time: 04:19 Medical Decision Making Medical Records Attestation: I reviewed the patient's medical records. Home Medications Current Medication List: was personally reviewed by me Laboratory Data Attestation: I reviewed the patient's lab results. [facility] Narrative Medical decision making differential diagnosis includes generalized weakness deconditioning ambulatory dysfunction. Plan is to readmit for placement Nursing notes are appreciated I spoke to EMS independently regarding this patient's presentation Reviewed prior labs and admission notes Discussed the case with the [facility] hospitalist for admission and he accepts the patient for inpatient admission Impression & Plan Weakness Discharge Plan Visit Data Chief Complaint: Illness Stated Complaint: Illness ED Provider: Jerome Calloway Discharge Problem: Weakness Patient Disposition: Admitted As Inpatient Forms Stand Alone Forms: [facility] Prescriptions Prescriptions: No Action verapamil 240 mg Capsule,Ext Rel. Pellets 24 Hr 240 mg PO QAM calcium carbonate [Tums] 200 mg calcium (500 mg) Tablet,Chewable 500 mg PO TID PRN (Reason: dyspepsia) Qty: 30 0RF warfarin 1 mg Tablet 0.5 mg PO DAILY@1600 30 Days Qty: 30 0RF hydroxychloroquine 200 mg Tablet 200 mg PO HS 30 Days Qty: 30 0RF metoprolol tartrate 25 mg Tablet 25 mg PO BID 30 Days Qty: 60 0RF pantoprazole 40 mg Tablet,Delayed Release (Dr/Ec) 40 mg PO BID 30 Days Qty: 60 0RF ergocalciferol (vitamin D2) 1,250 mcg (50,000 unit) Capsule 50,000 unit PO Q7D@0800 30 Days Qty: 4 0RF carvedilol 12.5 mg tablet 12.5 mg PO BID Qty: 60 0RF Rx Instructions: must administer with a meal/food torsemide 20 mg tablet 20 mg PO QAM Qty: 30 0RF Referrals Referrals: King Holcomb DO [Primary Care Provider] -
[2022-10-12] MEDS ORDERED: POLYETHYLENE (MIRALAX) 17 GM PACK PO PRN (06:40)
[2022-10-12] MEDS ORDERED: NITROGLYCERIN SL 0.4 MG/TAB TAB SL PRN (06:40)
[2022-10-12] MEDS ORDERED: CALCIUM CARBONATE 500 MG CHEWABLE TAB PO PRN (06:40)
[2022-10-12 06:49] LABS: Basophils # (auto) 0.08 K/uL (0-0.2); Eosinophils # (auto) 2.05 K/uL (0-0.50); Eosinophils % (auto) 26.6 %; Hematocrit (blood only) 34.3 % (40.1-51.0); Hemoglobin 10.3 g/dl (14.0-18.0); Immature Granulocytes # (auto) 0.04 K/uL (0.00-0.02); Immature Granulocytes % (auto) 0.5 %; Lymphocytes # (auto) 1.67 K/uL (1.2-3.4); Lymphocytes % (auto) 21.7 %; Mean Corpuscular Hemoglobin 27.8 pg (25.0-34.0); Mean Corpuscular Volume 92.7 fL (80.0-100.0); Mean Platelet Volume 10.5 fL (9.4-12.4); Monocytes # (auto) 0.54 K/uL (0.24-0.82); Neutrophils # (auto) 3.33 K/uL (1.4-6.5); Neutrophils % (auto) 43.2 %; Nucleated RBC # (auto) 0.02 K/uL (0-0); Nucleated RBC % (auto) 0.3 %; Platelet Count 313 K/uL (130-400); RDW Coefficient of Variation 16.5 % (11.5-14.5); RDW Standard Deviation 55.9 fL (36.4-46.3); White Blood Count 7.71 K/ul (4.8-10.8)
[2022-10-12 06:56] LABS: INR 3.3 (0.9-1.1); Prothrombin Time 32.9 Seconds (9.0-12.0)
[2022-10-12 07:06] LABS: Albumin Level 2.4 gm/dl (3.4-5.0); Bilirubin Direct 0.2 mg/dl (0-0.2); Bilirubin,Total 0.7 mg/dl (0.2-1.0); Calcium 10.5 mg/dl (8.5-10.1); Magnesium 1.7 mg/dl (1.7-2.4); Potassium 3.5 mmol/L (3.5-5.1)
[2022-10-12 07:12] LABS: BUN Creatinine Ratio 14.2 (10-20); Creatinine Clr Calc Pharmacy 43.1 ml/min; Est GFR (African American) 21.6 ml/min; Est GFR (Non-African American) 18.7 ml/min; Total Protein 6.1 gm/dl (6.0-8.3)
[2022-10-12 07:14] LABS: Base Excess ABG 7.7 mEq/L (-9-1.8); HCO3 ABG 33 mmol/L (19-24); Oxygen Saturation ABG 97.5 % (90-95); PCO2 ABG 50 mmHg (35-46); PO2 ABG 78 mmHg (80-95); pH ABG 7.43 (7.35-7.45)
[2022-10-12 07:17] LABS: Allen Test Pos (Pos)
[2022-10-12 07:30] LABS: Estimated Average Glucose 108 mg/dl; Hemoglobin A1C 5.4 % (4.5-5.6)
[2022-10-12] MEDS ORDERED: SODIUM CHLORIDE 0.9% 500 ML IV SCH (07:40)
[2022-10-12] MEDS: ACETAMINOPHEN 325 MG TAB PO PRN (07:46)
[2022-10-12] MEDS ORDERED: oxyCODONE HCL IR 5 MG TAB (IMMEDIATE RELEASE) PO STA (08:31)
[2022-10-12] MEDS ORDERED: VERAPAMIL HCL 240 MG TABCR PO SCH (09:00)
[2022-10-12] MEDS: METOPROLOL TARTRATE 25 MG TAB PO SCH ×2 (09:00→21:47)
--- NOTE | 2022-10-12 10:11 | History and Physical Report ---
DATE OF ADMISSION: 10/12/2022 CHIEF COMPLAINT: Ambulatory dysfunction, generalized weakness, and placement. HISTORY OF PRESENT ILLNESS: This is a 57-year-old male with past medical history significant for, hypertension,HLD, morbid obesity, chronic diastolic CHF, and ambulatory dysfunction hx of gout, rheumatoid arthritis, tobacco abuse,chronic back pain, medication non compliance presents from home as gardenia says cannot take care of him at home and requests for placement. The patient was recently in the hospital who was admitted on 08/29/2022 to the hospital feeling sick for 3 days, nausea, vomiting, and bloody diarrhea, increased weakness, and , his hemoglobin at the time of presentation was 5.9.As per previous h and p looks like he moved to [place] from [place] last June of 2022. It seems, the patient had 3 hospitalizations at [place] for kidney failure and hypoxia as per last H and P. The patient had prolonged hospital stay in our hospital from 08/29/2022 to oct 09 2022.. He was treated for anemia. He received 6 units of PRBC transfusions and also his iron level was low, status post iron transfusion x2. GI evaluated and the patient is status post EGD , which showed polyps were biopsied showing nonspecific duodenitis, negative for malignancy and had colonoscopy on 09/01/2022 and a 10-mm polyp was found in the rectum, which was removed with cold snare, it showed tubular adenoma, negative for high-grade dysplasia and also found to have diverticulosis of the sigmoid colon, nonbleeding internal hemorrhoids. Recommendation was to repeat colonoscopy in 5 years. His hemoglobin was stable and he was discharged on 10/09/2022 to home as per his 's request. The patient was waiting for placement, but wanted to take him home. His hemoglobin at discharge was 10.3. On last admission, he also found to have distal left brachial vein positive for DVT. He is on Coumadin. He was also found to have vitamin D deficiency with vitamin D less than 7, on weekly 50,000 units started on 09/17/2022 for 6 weeks and he had also CHERYL, and creatinine was 2.06 on presentation baseline at that time seemed to be 1.4. It went up to 3.6, then trended down to 2, then again went up to 5.5, then it trended down again to 2.8, and again went to 4, and at the time of discharge, it was 3.6. Nephrology followed the patient. They thought his previous these episodes of oliguric acute kidney injury was thought to be due to ischemic ATN in the setting of acute blood loss anemia and also because of his hypoxia, and since he is not making much urine, he was placed on torsemide 20 daily. He was also having nocturnal hypoxia, possible obstructive sleep apnea. He seemed to be noncompliant with BiPAP, used intermittently, seen by pulmonary, recommended to continue BiPAP while sleeping and at bedtime.Discharged home on oxygen, but was advised to get an outpatient sleep study as soon as possible. The patient was discharged home on Sunday and says that now she cannot take care of him at home and brought him to the hospital requesting for placement. She states there is no change since the discharge. The patient is eating and drinking okay, though his appetite is very poor. No difficulty swallowing. Denies any chest pain. No headaches. Currently, denies any back pain, no shortness of breath, no nausea, no abdominal pain. Normal bowel and bladder movements. Denies any bloody stools, black stools, or any hematuria. He says his vision is not good, but he uses glasses. Denies any runny nose or sore throat. He has occasional cough with whitish phlegm. No earaches. Currently, hemodynamically stable.Any movement of upper extremities causing pain ALLERGIES: IODINATED CONTRAST MEDIA AND IODINE. PAST MEDICAL HISTORY: As mentioned above. PAST SURGICAL HISTORY: EGD, colonoscopy, right knee arthroscopy, tonsillectomy, adenoidectomy, and tooth removal. MEDICATIONS: The patient is on vitamin D2 50,000 units weekly, 4 more weeks left; hydroxychloroquine 200 mg p.o. at bedtime; metoprolol tartrate 25 mg p.o. b.i.d.; Protonix 40 mg p.o. b.i.d.; torsemide 20 mg p.o. a.m.; verapamil 240 mg p.o. a.m.; and warfarin 0.5 mg p.o. daily. FAMILY HISTORY: Significant for mother, who had diabetes and hypertension. SOCIAL HISTORY: Quit smoking in 2010. No alcohol. No drug use. REVIEW OF SYSTEMS: As per HPI. Rest of review of systems is negative. PHYSICAL EXAMINATION: GENERAL: The patient is morbidly obese, currently not in acute distress. VITAL SIGNS: Temperature 37, pulse 102, respiratory rate 24, blood pressure 136/72, and oxygen saturation 96% on 3 L. HEENT: Pupils equal, round, and reactive to light. Oral mucosa dry. NECK: No JVD or neck masses. CARDIOVASCULAR: S1 and S2 heard. Regular rate and rhythm. No murmur. No gallop. RESPIRATORY SYSTEM: Normal AP diameter. No accessory muscle use. No wheezing. No crackles. ABDOMEN: Soft, bowel sounds present, nontender, no distention. CENTRAL NERVOUS SYSTEM: Alert and oriented. Speech is clear. No facial droop. Obeys simple commands. Moves extremities. EXTREMITIES: Lower extremity edema is present. No erythema seen. SKIN: No decubitus pressure ulcer seen. LABORATORY DATA: Unavailable at this time. ASSESSMENT AND PLAN: This is a 57-year-old male with past medical history significant for hypertension; morbid obesity ambulatory dysfunction, chronic kidney disease, currently his baseline creatinine increased; chronic anemia, baseline hemoglobin 9; morbid obesity; possible obstructive sleep apnea; gout; history of rheumatoid arthritis; chronic back pain; and tobacco abuse; who was recently in the hospital with hemoglobin of 5.9, status post 6 units of PRBC transfusion, nocturnal hypoxia, possibly RUTH started on BiPAP; acute deep vein thrombosis of the left upper extremity, on Coumadin, was supposed to go longterm, but wanted to take him home, was discharged on Sunday, comes back because states she could not take care of him at home and wants placement. 1. Ambulatory dysfunction and deconditioning. The patient recently had prolonged stay in the hospital and discharged last Sunday to home as wanted to take him home, but now brings him back requesting for placement. The patient is mostly non mobile since last 1 year as per the .As per prior to last admission patient was able to sit on the bed and stand for some time but since the last admission, he is not even able to get up or move on the bed. We will do PT/OT. Social service to help with the placement. 2. Chronic kidney disease, stage IV. New baseline. His creatinine remained increased on the last admission. Prior to that, his creatinine baseline was 1.4, seen by nephro, currently on torsemide 20 mg p.o. daily, follow today's creatinine and if any worsening, will consult nephrology again. 3. History of acute blood loss anemia recently secondary to lower gastrointestinal bleed. At last admission, he received 6 units of PRBC, status post iron transfusion x2, status post EGD and colonoscopy. Recommended colonoscopy in 5 years; showed tubular adenoma, also nonspecific duodenitis. He is on Protonix, which we will continue. His hemoglobin was 10.3 at discharge on 10/09/2022. We will follow today's labs. 4. Left upper extremity deep vein thrombosis, on Coumadin. We will follow the PT/INR. 5. Vitamin D deficiency, vitamin D level was less than 7, started on weekly 50,000 units for 6 weeks, 4 more doses, then to continue regular oral dose. 6. Hypertension, currently on metoprolol tartrate and torsemide. blood pressure seems stable. 7. History of rheumatoid arthritis, currently on Plaquenil 200 mg daily was on 400 mg prior to last admission. 8. Morbid obesity and possible obstructive sleep apnea. Last admission, he had nocturnal pulse ox study, which showed desaturation events and spent greater than 5 minutes with saturation less than 89%. His a.m. ABG on 09/09/2022, pCO2 of 55. Currently on home oxygen.,He seems noncompliant with BiPAP last admit. Ordered bipap q hs and while sleeping. we will follow the repeat ABG today. 9. Prediabetes Follow Hba1c levels. 10. Hyperlipidemia. Will follow Lipid profile. 11. Deep venous thrombosis prophylaxis, on Coumadin. We will follow the PT/INR. DISPOSITION: Closely monitor in the med tele. PT/OT. Social service to help with discharge planning. The patient's wants him to be placed. Level 1 full code as per my discussion with the . Job ID: [id number] MTDD
[2022-10-12] MEDS: TORSEMIDE 20 MG TAB PO SCH (11:06)
[2022-10-12] MEDS: ERGOCALCIFEROL 50,000 UNITS 1250 MCG CAP PO SCH (11:06)
[2022-10-12] MEDS: PANTOprazole 40 MG TAB PO SCH ×2 (11:06→21:47)
--- NOTE | 2022-10-12 15:33 | Communication Note ---
Date of Service: October 12, 2022 Patient seen and examined in the emergency department. He is lying on the bed comfortably; not in any distress. Blood pressure on the lower side; was given fluid bolus. Verapamil stopped for now. PT OT evaluation ordered Case management on board for possible placement.
[2022-10-12] MEDS ORDERED: FLUARIX QUADRIVALENT 0.5 ML SYR IM ONE (18:48)
[2022-10-12] MEDS: HYDROXYCHLOROQUINE SULFATE 200 MG TAB PO SCH (21:47)
[2022-10-13 06:08] LABS: Basophils # (auto) 0.09 K/uL (0-0.2); Basophils % (auto) 1.2 %; Eosinophils # (auto) 1.89 K/uL (0-0.50); Hematocrit (blood only) 37.3 % (40.1-51.0); Hemoglobin 10.9 g/dl (14.0-18.0); Immature Granulocytes # (auto) 0.04 K/uL (0.00-0.02); Immature Granulocytes % (auto) 0.5 %; Lymphocytes # (auto) 1.34 K/uL (1.2-3.4); Lymphocytes % (auto) 17.7 %; Mean Corpuscular Hemoglobin 27.5 pg (25.0-34.0); Mean Corpuscular Hgb Conc 29.2 g/dL (32.0-36.0); Mean Corpuscular Volume 94.2 fL (80.0-100.0); Mean Platelet Volume 9.5 fL (9.4-12.4); Monocytes # (auto) 0.63 K/uL (0.24-0.82); Monocytes % (auto) 8.3 %; Neutrophils # (auto) 3.56 K/uL (1.4-6.5); Neutrophils % (auto) 47.3 %; Platelet Count 312 K/uL (130-400); RDW Coefficient of Variation 16.6 % (11.5-14.5); RDW Standard Deviation 57.5 fL (36.4-46.3); Red Blood Count 3.96 M/uL (4.63-6.08); White Blood Count 7.55 K/ul (4.8-10.8)
[2022-10-13 06:22] LABS: INR 3.7 (0.9-1.1); Prothrombin Time 36.5 Seconds (9.0-12.0)
[2022-10-13 06:25] LABS: Albumin Level 2.5 gm/dl (3.4-5.0); Bilirubin,Total 0.5 mg/dl (0.2-1.0); Calcium 10.4 mg/dl (8.5-10.1); Potassium 3.9 mmol/L (3.5-5.1)
[2022-10-13 06:35] LABS: Albumin Globulin Ratio 0.6 (0.9-2); BUN Creatinine Ratio 11.2 (10-20); Chol HDL Ratio 7.7 (0-5); Est GFR (African American) 15.4 ml/min; Est GFR (Non-African American) 13.3 ml/min; Globulin 3.9 gm/dl (2.5-4.0); Total Protein 6.4 gm/dl (6.0-8.3)
[2022-10-13] MEDS: cefTRIAXone SODIUM 2,000 MG in DEXTROSE 5% 50 ML IV SCH (08:13)
[2022-10-13] MEDS: TORSEMIDE 20 MG TAB PO SCH (08:13)
[2022-10-13] MEDS: LACTATED RINGER'S 1,000 ML IV SCH ×2 (08:13→17:54)
[2022-10-13] MEDS: PANTOprazole 40 MG TAB PO SCH ×2 (08:13→20:19)
--- NOTE | 2022-10-13 10:33 | Electrocardiogram Report ---
Test Reason : Blood Pressure : / mmHG Vent. Rate : 076 BPM Atrial Rate : 076 BPM P-R Int : 166 ms QRS Dur : 122 ms QT Int : 406 ms P-R-T Axes : 030 -32 011 degrees QTc Int : 456 ms Normal sinus rhythm Left axis deviation Inferior infarct Anterolateral infarct Abnormal ECG When compared with ECG of 01-OCT-2022 21:17, Right bundle branch block is no longer Present Borderline criteria for Anterolateral infarct are now Present Confirmed by Yovany Kerr ([id number]) on 10/13/2022 10:32:50 AM Referred By: REFERRED SELF Confirmed By:Yovany Kerr
[2022-10-13] MEDS: ACETAMINOPHEN 325 MG TAB PO PRN (11:18)
--- NOTE | 2022-10-13 13:23 | Ultrasound Report ---
ULTRASOUND KIDNEYS AND BLADDER CLINICAL HISTORY: Acute on chronic renal insufficiency. COMPARISON STUDY: Abdominal CT dated 08/29/2022. Renal ultrasound dated 08/30/2022 TECHNIQUE: Real-time, grayscale, and color flow sonography of the kidneys and bladder is performed. I mages are reviewed in the transverse and longitudinal planes. FINDINGS: Kidneys: The kidneys are atrophic and echogenic indicating medical renal disease. The right kidney me asures 13.9 cm in length and the left kidney measures 11.4 cm. There is no hydronephrosis. No shadow ing renal calculi are identified. Bilateral renal cysts measure up to 5 cm. There is no sonographic e vidence of contour deforming renal mass lesion. No perinephric fluid is identified. Bladder: The bladder is decompressed and could not be evaluated Upper abdomen: Survey images of the liver show evidence of steatosis. IMPRESSION: 1. The kidneys are atrophic and echogenic indicating medical renal disease. 2. No hydronephrosis. 3. The bladder was decompressed and could not be assessed. ACT 112: Negative or not required by law. Electronically signed by: Jethro Mills M.D. 10/13/2022 1:22 PM
--- NOTE | 2022-10-13 13:35 | Nephrology Consultation ---
Date of Consultation October 13, 2022 Assessment & Plan (1) CHERYL (acute kidney injury): nonoliguric stage 1 CHERYL on CKD 4, cause unclear. BP is lower/labile which may have a role; ? if he may somehow have also had torsemide at home yesterday prior to presentation. agree w/ LR for now stopped torsemide f/u pending UA continue strict I/o daily bmp -ok to do w/o crenshaw for now -low threshold for renal diet but monitor for need -no indication for dialysis discussion at this time -continue to avoid nephrotoxins adn to support bp (2) CKD (chronic kidney disease) stage 4, GFR 15-29 ml/min: rapidly progressive per report of baseline 1.4 in fall 2021 and worse in September 2022 than in 08/2022 > would call his baseline currently in the 3s. History of Present Illness Reason for Consultation: CHERYL on CKD Requesting Physician: Dr Hines Attending Physician: Jayson Hines MD History of Present Illness 57 y/o M whom I'm asked to see for CHERYL on CKD was brought back to hospital by after recent d/c home at her insistence now requesting placement after she realized she could not care for him at home. his presenting creatinine was 3.4, up to 4.6 today. PMH includes super morbid obesity, extended series of hospital admissions and bedbound for past 11 months during these, HFpEF, HTN, HL, chronic back pain, CKD w/ very labile renal function but creatinine often hovering around 3 more recently and w/ recurrent episodes of CHERYL w/ attempts at diuresis, severe debilitation/deconditioning unable to feed himself at hospital d/c.. He was admitted here 08/29 - 10/09 after presenting w/ n/v/bloody diarrhea and hgb 5.9. he had 6 units pRBC; 09/01 colonoscopy showed no active bleeding source or malignancy w/ recommendation to repeat in 5 years. D/c hgb in 10s. he was started on coumadin for LUE DVT. He had very labile renal function during the admission w/ recurrent episodes of nonoliguric CHERYL in response to attempts at diuresis. His admitting and victor manuel creatinine was 2, peak 5.6 on 09/13, and 3.6 at d/c. There were reports that prior to admission his baseline was 1.4 but the timing and data for that are not available to verify this. He was diagnosed during the admission w/ nocturnal hypoxia and presumptive sleep apnea, w/ at best intermittent BIPAP adherence in hospital. He moved here from [place] in June 2022. In [place] he had 3 hospitalizations for CHERYL per report (details unavailable). his outpatient 20 mg torsemide daily was continued starting yesterday. his sbp has been labile since coming back and w/ some drops to the 80s systolic. he is refusing a crenshaw catheter pt on bipap and very difficult to arouse when I evaluted him. ROS in H&P reviewed; unable to be obtained today d/t MS Allergies Allergy/AdvReac Type Severity Reaction Status Date / Time Iodinated Contrast Media Allergy Hives Verified 10/12/22 15:49 iodine Allergy Hives Verified 10/12/22 15:49 Home Medications Medication Instructions Recorded Confirmed Type verapamil 240 mg 24 hr 240 mg PO QAM 08/29/22 10/12/22 History capsule,extended release calcium carbonate 200 mg calcium 500 mg PO TID PRN dyspepsia #30 10/07/22 10/12/22 Rx (500 mg) chewable tablet (Tums) tabs carvedilol 12.5 mg tablet 12.5 mg PO BID #60 tabs 10/07/22 10/12/22 Rx ergocalciferol (vitamin D2) 1,250 50,000 unit PO Q7D@0800 30 days #4 10/07/22 10/12/22 Rx mcg (50,000 unit) capsule caps hydroxychloroquine 200 mg tablet 200 mg PO HS 30 days #30 tabs 10/07/22 10/12/22 Rx metoprolol tartrate 25 mg tablet 25 mg PO BID 30 days #60 tabs 10/07/22 10/12/22 Rx pantoprazole 40 mg tablet,delayed 40 mg PO BID 30 days #60 tabs 10/07/22 10/12/22 Rx release torsemide 20 mg tablet 20 mg PO QAM #30 tabs 10/07/22 10/12/22 Rx warfarin 1 mg tablet 0.5 mg PO DAILY@1600 30 days #30 10/07/22 10/12/22 Rx tabs Patient History Medical History (Updated 10/13/22 @ 13:57 by Nina Richards MD, PhD) CHERYL (acute kidney injury) Anemia CKD (chronic kidney disease) stage 4, GFR 15-29 ml/min DVT (deep venous thrombosis) Morbid obesity Obesity hypoventilation syndrome Social History Smoking Status: Never smoker Hx Alcohol Use: No Hx Substance Use: No Preferred Language: Yakut Communication Ability: Effective Insurance Account Specialist Required: No Beliefs That Will Affect Care: None Current Living Situation: Spouse Feels Safe at Home: Yes Safety Concerns: Feels Safe At This Time Assistive Devices: Oxygen - Continuous Review of Systems Review of Systems: Unobtainable due to reduced consciousness Physical Exam Constitutional: well developed, well nourished, + morbidly obese, + lethargic and + mechanically ventilated (bipap); no acute distress Eyes: EOM intact bilaterally ENMT: Ears: no external ear abnormality Nose: no external nose abnormality Mouth: + dry oral mucous membranes Neck: no nuchal rigidity Respiratory: normal respiratory effort Auscultation: + diminished lung sounds Cardiovascular: Rate/Rhythm: regular rate and regular rhythm Extremities: + edema (3+ pedal) Gastrointestinal (Abdomen): Inspection/Auscultation: normal bowel sounds Pe rcussion/Palpation: abdomen soft; abdomen nontender Musculoskeletal: Extremities: + abnormal strength Skin: no rashes, warm and dry Neurologic: lethargic Results & Data ([facility]) Vital Signs (Past 12 Hours) Vital Signs Temp Pulse Pulse Resp BP BP Pulse Ox 10/13/22 11:27 36.4 C L 77 19 108/76 100 10/13/22 08:15 10/13/22 08:12 36.9 C 72 20 107/79 99 10/13/22 07:49 70 10/13/22 02:30 24 94 10/13/22 02:53 36.7 C 75 19 81/55 L 97 O2 Del Method O2 Flow Rate 10/13/22 11:27 Nasal Cannula 4 10/13/22 08:15 Nasal Cannula 4 10/13/22 08:12 Nasal CPAP 10/13/22 07:49 10/13/22 02:30 4 10/13/22 02:53 Nasal Cannula 4 Laboratory Results 10/13/22 05:28 10/13/22 05:28 Diagnostic Findings unremarkabel renal u/s
[2022-10-13] MEDS ORDERED: oxyCODONE HCL IR 5 MG TAB (IMMEDIATE RELEASE) PO STA (15:12)
--- NOTE | 2022-10-13 15:55 | Hospitalist Progress Note ---
Date of Service October 13, 2022 Assessment & Plan (1) CHERYL (acute kidney injury): (2) CKD (chronic kidney disease) stage 4, GFR 15-29 ml/min: (3) Morbid obesity: (4) Obesity hypoventilation syndrome: (5) Weakness: Plan Past medical history of hypertension, morbid obesity, ambulatory dysfunction, CKD, anemia, upper extremity DVT on warfarin, obesity hypoventilation syndrome presented from home due to generalized weakness. He was discharged 2 days prior to presentation to home. He was brought back as was unable to take care of him at home and wants SNF placement. Acute kidney injury on CKD: Hypotensive episodes intermittently since admission Was on verapamil, metoprolol and torsemide Creatinine up trended to 4.56 today; baseline around 3. Renal ultrasoundno hydronephrosis Plan; Hold antihypertensives to allow blood pressure to increase. LR at 125 cc/h for presumed prerenal CHERYL Strict input output monitoring Nephro on board; appreciate recommendation Morbid obesity Obesity hypoventilation syndrome Ambulatory dysfunction Generalized weakness Reports that he has been bedbound since November 2021; likely due to morbid obesity As nocturnal hypoxia; chronic CO2 retention Last admission; recommended to be discharged to SNF; wanted to go home. Came back in 3 days PlanPT OT, counseling done regarding morbid obesity, CPAP at night, History of acute DVT in left upper extremity Supratherapeutic INR Warfarin currently on hold; Will resume at a lower dose Vitamin D deficiency Vitamin D level less than 7 On vitamin D 50,000 units weekly for 6 weeks Other conditions; Hypertensioncurrently metoprolol, torsemide and verapamil on hold Rheumatoid arthritison Plaquenil. Anemia; likely due to lower GI bleed. Has EGD done on August 31, 2022; had 2 duodenal polyp likely hyperplastic. Negative for malignancy. Colonoscopy done in September 01, 2022; 10 mm polyp removed; tubular adenoma. Repeat colonoscopy in 5 years. Hemoglobin currently stable Full code DVT prophylaxis warfarin dispositioncurrently hospitalized due to acute kidney injury on CKD; placement to SNF when available. Admission and Anticipated Discharge Date Admission Date: October 12, 2022 Subjective Patient seen and examined at bedside. He is comfortably lying in the bed; not in any distress. Blood pressure on the lower side. Review of Systems Review of Systems: All systems reviewed & are unremarkable except as noted in Subjective Physical Exam Physical Exam: Constitutional: Alert, oriented x3; morbidly obese Respiratory: Bilateral clear breath sound Cardiovascular: RRR, no murmur, no edema Vessels: no JVD or carotid bruit Chest: normal inspection of chest Abdomen: Abdomen distended; nontender. Musculoskeletal: no cyanosis or clubbing, extremities motor strength 5/5 Skin: no rashes, warm and dry normal turgor Neurologic: Grossly intact; Psychiatric: A+Ox3, euthymic affect : deferred Results & Data Results & Data ([facility]) Vital Signs (Past 12 Hours) Vital Signs Temp Pulse Pulse Resp BP BP Pulse Ox 10/13/22 15:36 76 10/13/22 11:27 36.4 C L 77 19 108/76 100 10/13/22 08:15 10/13/22 08:12 36.9 C 72 20 107/79 99 10/13/22 07:49 70 O2 Del Method O2 Flow Rate 10/13/22 15:36 10/13/22 11:27 Nasal Cannula 4 10/13/22 08:15 Nasal Cannula 4 10/13/22 08:12 Nasal CPAP 10/13/22 07:49 Laboratory Results Laboratory Results WBC 7.55 K/ul (4.8-10.8) 10/13/22 05:28 RBC 3.96 M/uL (4.63-6.08) L 10/13/22 05:28 Hgb 10.9 g/dl (14.0-18.0) L 10/13/22 05:28 Hct 37.3 % (40.1-51.0) L 10/13/22 05:28 MCV 94.2 fL (80.0-100.0) 10/13/22 05:28 MCH 27.5 pg (25.0-34.0) 10/13/22 05:28 MCHC 29.2 g/dL (32.0-36.0) L 10/13/22 05:28 RDW Std Deviation 57.5 fL (36.4-46.3) H 10/13/22 05:28 RDW Coeff of Cheryl 16.6 % (11.5-14.5) H 10/13/22 05:28 Plt Count 312 K/uL (130-400) 10/13/22 05:28 MPV 9.5 fL (9.4-12.4) 10/13/22 05:28 Immature Gran % (Auto) 0.5 % 10/13/22 05:28 Neut % (Auto) 47.3 % 10/13/22 05:28 Lymph % (Auto) 17.7 % 10/13/22 05:28 [place] % (Auto) 8.3 % 10/13/22 05:28 Eos % (Auto) 25.0 % 10/13/22 05:28 Baso % (Auto) 1.2 % 10/13/22 05:28 Neut # (Auto) 3.56 K/uL (1.4-6.5) 10/13/22 05:28 Lymph # (Auto) 1.34 K/uL (1.2-3.4) 10/13/22 05:28 [place] # (Auto) 0.63 K/uL (0.24-0.82) 10/13/22 05:28 Eos # (Auto) 1.89 K/uL (0-0.50) H 10/13/22 05:28 Baso # (Auto) 0.09 K/uL (0-0.2) 10/13/22 05:28 Immature Gran # (Auto) 0.04 K/uL (0.00-0.02) H 10/13/22 05:28 Absolute Nucleated RBC 0.02 K/uL (0-0) H 10/12/22 05:38 Nucleated RBC % (auto) 0.3 % 10/12/22 05:38 PT 36.5 Seconds (9.0-12.0) H 10/13/22 05:28 INR 3.7 (0.9-1.1) H 10/13/22 05:28 ABG pH 7.43 (7.35-7.45) 10/12/22 06:59 ABG pCO2 50 mmHg (35-46) H 10/12/22 06:59 ABG pO2 78 mmHg (80-95) L 10/12/22 06:59 ABG HCO3 33 mmol/L (19-24) H 10/12/22 06:59 ABG O2 Saturation 97.5 % (90-95) H 10/12/22 06:59 ABG Base Excess 7.7 mEq/L (-9-1.8) H 10/12/22 06:59 Galen Test Pos (Pos) 10/12/22 06:59 Oxygen Given 4L 10/12/22 06:59 Sodium 138 mmol/L (136-145) 10/13/22 05:28 Potassium 3.9 mmol/L (3.5-5.1) 10/13/22 05:28 Chloride 98 mmol/L (98-107) 10/13/22 05:28 Carbon Dioxide 31 mmol/L (21-32) 10/13/22 05:28 Anion Gap 9 (3-11) 10/13/22 05:28 BUN 51 mg/dl (6-23) H 10/13/22 05:28 Creatinine 4.56 mg/dl (0.6-1.4) H* D 10/13/22 05:28 Est Cr Clr Drug Dosing 32.0 ml/min 10/13/22 05:28 Est GFR ( Amer) 15.4 ml/min 10/13/22 05:28 Est GFR (Non-Af Amer) 13.3 ml/min 10/13/22 05:28 BUN/Creatinine Ratio 11.2 (10-20) 10/13/22 05:28 Glucose 87 mg/dl (70-99(Fasting)) 10/13/22 05:28 POC Glucose 93 mg/dl (70-99) 10/12/22 16:50 Estimat Average Glucose 108 mg/dl 10/12/22 05:38 Hemoglobin A1c 5.4 % (4.5-5.6) 10/12/22 05:38 Calcium 10.4 mg/dl (8.5-10.1) H 10/13/22 05:28 Magnesium 1.7 mg/dl (1.7-2.4) 10/12/22 05:38 Total Bilirubin 0.5 mg/dl (0.2-1.0) 10/13/22 05:28 Direct Bilirubin 0.2 mg/dl (0-0.2) 10/12/22 05:38 AST 18 U/L (13-39) 10/13/22 05:28 ALT 9 U/L (7-52) 10/13/22 05:28 Alkaline Phosphatase 59 U/L (34-104) 10/13/22 05:28 Total Creatine Kinase 48 U/L (30-223) 10/13/22 05:28 Total Protein 6.4 gm/dl (6.0-8.3) 10/13/22 05:28 Albumin 2.5 gm/dl (3.4-5.0) L 10/13/22 05:28 Globulin 3.9 gm/dl (2.5-4.0) 10/13/22 05:28 Albumin/Globulin Ratio 0.6 (0.9-2) L 10/13/22 05:28 Triglycerides 200 mg/dl (0-150) H 10/13/22 05:28 Cholesterol 131 mg/dl (0-200) 10/13/22 05:28 LDL Cholesterol, Calc 74 mg/dl 10/13/22 05:28 VLDL Cholesterol, Calc 40 mg/dl (0-30) H 10/13/22 05:28 HDL Cholesterol 17 mg/dl 10/13/22 05:28 Cholesterol/HDL Ratio 7.7 (0-5) H 10/13/22 05:28 SARS-CoV-2, RNA, NAAT NEGATIVE (NEGATIVE) 10/12/22 05:23 Impressions Renal Ultrasound 10/13/22 07:41 ULTRASOUND KIDNEYS AND BLADDER CLINICAL HISTORY: Acute on chronic renal insufficiency. COMPARISON STUDY: Abdominal CT dated 08/29/2022. Renal ultrasound dated 08/30/2022 TECHNIQUE: Real-time, grayscale, and color flow sonography of the kidneys and bladder is performed. Images are reviewed in the transverse and longitudinal planes. FINDINGS: Kidneys: The kidneys are atrophic and echogenic indicating medical renal disease. The right kidney measures 13.9 cm in length and the left kidney measures 11.4 cm. There is no hydronephrosis. No shadowing renal calculi are identified. Bilateral renal cysts measure up to 5 cm. There is no sonographic evidence of contour deforming renal mass lesion. No perinephric fluid is identified. Bladder: The bladder is decompressed and could not be evaluated Upper abdomen: Survey images of the liver show evidence of steatosis. IMPRESSION: 1. The kidneys are atrophic and echogenic indicating medical renal disease. 2. No hydronephrosis. 3. The bladder was decompressed and could not be assessed. ACT 112: Negative or not required by law. Electronically signed by: Jethro Mills M.D. 10/13/2022 1:22 PM
[2022-10-13] MEDS: HYDROXYCHLOROQUINE SULFATE 200 MG TAB PO SCH (20:19)
[2022-10-14 01:07] LABS: A calco-baum cmplx NotReported Not Detected (NotDetected); Bact fragilis Not Reported Not Detected (NotDetected); C auris Not Reported Not Detected (NotDetected); Calbicans Not Reported Not Detected (NotDetected); Candida glabrata Not Reported Not Detected (NotDetected); Candida krusei Not Reported Not Detected (NotDetected); Cneoformans/gatti Not Reported Not Detected (NotDetected); Cparapsilosis Not Reported Not Detected (NotDetected); Ctropicalis Not Reported Not Detected (NotDetected); E cloacae compx Not Reported Not Detected (NotDetected); Efaecalis Not Reported Not Detected (NotDetected); Efaecium Not Reported Not Detected (NotDetected); Enterobacterales Not Reported Not Detected (NotDetected); Escherichia coli Not Reported Not Detected (NotDetected); H influenzae Not Reported Not Detected (NotDetected); K aerogenes Not Reported Not Detected (NotDetected); Koxytoca Not Reported Not Detected (NotDetected); Kpneumoniae grp Not Reported Not Detected (NotDetected); Lmonocyt Not Reported Not Detected (NotDetected); N meningitidis Not Reported Not Detected (NotDetected); P aeruginosa Not Reported Not Detected (NotDetected); Proteus spp Not Reported Not Detected (NotDetected); Salmonella spp Not Reported Not Detected (NotDetected); Smarcescens Not Reported Not Detected (NotDetected); Staph lugdunensis Not Reported Not Detected (NotDetected); Staph spp. Not Reported DETECTED (NotDetected); Staphaureus Not Reported Not Detected (NotDetected); Staphepi Not Reported DETECTED (NotDetected); Stenmaltophilia Not Reported Not Detected (NotDetected); Strep agal(GrpB) Not Reported Not Detected (NotDetected); Strep pneum Not Reported Not Detected (NotDetected); Strep pyog (GrpA) Not Reported Not Detected (NotDetected); Strep spp Not Reported Not Detected (NotDetected)
[2022-10-14 01:24] LABS: Staphylococcus epidermidis DETECTED (NotDetected); Staphylococcus spp. DETECTED (NotDetected); mecAC Resistant Gene DETECTED (NotDetected)
[2022-10-14] MEDS: LACTATED RINGER'S 1,000 ML IV SCH (01:27)
[2022-10-14] MEDS: DAPTOmycin 800 MG in SYRINGE 0 ML IV SCH (02:47)
[2022-10-14 07:46] LABS: Basophils # (auto) 0.07 K/uL (0-0.2); Eosinophils # (auto) 2.04 K/uL (0-0.50); Eosinophils % (auto) 28.4 %; Hemoglobin 9.4 g/dl (14.0-18.0); Immature Granulocytes # (auto) 0.02 K/uL (0.00-0.02); Immature Granulocytes % (auto) 0.3 %; Lymphocytes # (auto) 1.35 K/uL (1.2-3.4); Lymphocytes % (auto) 18.8 %; Mean Corpuscular Hemoglobin 27.5 pg (25.0-34.0); Mean Corpuscular Hgb Conc 29.4 g/dL (32.0-36.0); Mean Corpuscular Volume 93.6 fL (80.0-100.0); Mean Platelet Volume 9.7 fL (9.4-12.4); Monocytes # (auto) 0.64 K/uL (0.24-0.82); Monocytes % (auto) 8.9 %; Neutrophils # (auto) 3.06 K/uL (1.4-6.5); Neutrophils % (auto) 42.6 %; Platelet Count 283 K/uL (130-400); RDW Coefficient of Variation 16.9 % (11.5-14.5); RDW Standard Deviation 57.1 fL (36.4-46.3); Red Blood Count 3.42 M/uL (4.63-6.08); White Blood Count 7.18 K/ul (4.8-10.8)
[2022-10-14 08:08] LABS: INR 3.9 (0.9-1.1); Prothrombin Time 38.4 Seconds (9.0-12.0)
[2022-10-14] MEDS: PANTOprazole 40 MG TAB PO SCH ×2 (08:18→20:47)
[2022-10-14] MEDS: cefTRIAXone SODIUM 2,000 MG in DEXTROSE 5% 50 ML IV SCH (08:22)
[2022-10-14] MEDS: ACETAMINOPHEN 325 MG TAB PO PRN ×2 (08:23→14:19)
[2022-10-14 08:44] LABS: Albumin Level 2.3 gm/dl (3.4-5.0); Bilirubin,Total 0.3 mg/dl (0.2-1.0); Calcium 9.6 mg/dl (8.5-10.1); Potassium 3.5 mmol/L (3.5-5.1)
[2022-10-14 09:02] LABS: Albumin Globulin Ratio 0.7 (0.9-2); BUN Creatinine Ratio 11.4 (10-20); Creatinine Clr Calc Pharmacy 31.2 ml/min; Est GFR (African American) 14.7 ml/min; Est GFR (Non-African American) 12.6 ml/min; Globulin 3.4 gm/dl (2.5-4.0); Total Protein 5.7 gm/dl (6.0-8.3)
--- NOTE | 2022-10-14 12:38 | Hospitalist Progress Note ---
Date of Service October 14, 2022 Assessment & Plan (1) CHERYL (acute kidney injury): (2) CKD (chronic kidney disease) stage 4, GFR 15-29 ml/min: (3) Morbid obesity: (4) Obesity hypoventilation syndrome: (5) Weakness: Plan Past medical history of hypertension, morbid obesity, ambulatory dysfunction, CKD, anemia, upper extremity DVT on warfarin, obesity hypoventilation syndrome presented from home due to generalized weakness. He was discharged 2 days prior to presentation to home. He was brought back as was unable to take care of him at home and wants SNF placement. Acute kidney injury on CKD: Hypotensive episodes intermittently since admission Was on verapamil, metoprolol and torsemide Creatinine up trended to 4.75 today; baseline around 3. Renal ultrasoundno hydronephrosis Oliguric since last 2 days. Plan; Nephrology on board; recommend Lasix 40 mg IV twice daily. Strict input output monitoring. Patient unable to void; RN not able to place [place]. Urology consulted. Gram-positive cocci in clusters; PCR positive for staph epidermis -Started on daptomycin; -We will follow-up on repeat blood culture. -Discontinue antibiotic if follow-up blood culture is negative. Morbid obesity Obesity hypoventilation syndrome Ambulatory dysfunction Generalized weakness Reports that he has been bedbound since November 2021; likely due to morbid obesity As nocturnal hypoxia; chronic CO2 retention Last admission; recommended to be discharged to SNF; wanted to go home. Came back in 3 days PlanPT OT, counseling done regarding morbid obesity, CPAP at night, History of acute DVT in left upper extremity Supratherapeutic INR Warfarin currently on hold; Will resume at a lower dose Vitamin D deficiency Vitamin D level less than 7 On vitamin D 50,000 units weekly for 6 weeks Other conditions; Hypertensioncurrently metoprolol, torsemide and verapamil on hold Rheumatoid arthritison Plaquenil. Anemia; likely due to lower GI bleed. Has EGD done on August 31, 2022; had 2 duodenal polyp likely hyperplastic. Negative for malignancy. Colonoscopy done in September 01, 2022; 10 mm polyp removed; tubular adenoma. Repeat colonoscopy in 5 years. Hemoglobin currently stable Full code DVT prophylaxis warfarin dispositioncurrently hospitalized due to acute kidney injury on CKD; placement to SNF when available. Admission and Anticipated Discharge Date Admission Date: October 12, 2022 Subjective Patient seen and examined at bedside. He reports urge to void but has not been able to do so. Urine output in last 24 hours afebrile. Blood pressure stable; Review of Systems Review of Systems: All systems reviewed & are unremarkable except as noted in Subjective Physical Exam Physical Exam: Constitutional: Alert, oriented x3; morbidly obese Respiratory: Bilateral clear breath sound Cardiovascular: RRR, no murmur, no edema Vessels: no JVD or carotid bruit Chest: normal inspection of chest Abdomen: Abdomen distended; nontender. Musculoskeletal: no cyanosis or clubbing, extremities motor strength 5/5 Skin: no rashes, warm and dry normal turgor Neurologic: Grossly intact; Psychiatric: A+Ox3, euthymic affect : deferred Results & Data Results & Data ([facility]) Vital Signs (Past 12 Hours) Vital Signs Temp Pulse Pulse Resp BP BP Pulse Ox 10/14/22 12:19 36.5 C 74 12 119/77 96 10/14/22 08:25 10/14/22 07:30 36.5 C 86 12 124/75 93 10/14/22 03:45 37.0 C 84 20 101/67 97 O2 Del Method O2 Flow Rate 10/14/22 12:19 Oxymask 10/14/22 08:25 Nasal Cannula 3 10/14/22 07:30 Nasal Cannula 4 10/14/22 03:45 Nasal Cannula 4
--- NOTE | 2022-10-14 12:48 | Nephrology Progress Note ---
Date of Service October 14, 2022 Assessment & Plan (1) CHERYL (acute kidney injury): Plan: nonoliguric stage 1 CHERYL on CKD 4, cause unclear. BP is lower/labile which may have a role; ? if he may somehow have also had torsemide at home yesterday prior to presentation. - Renal fucntion have declined further and it is difficult to asses exact UOP - Needs foleys, agree with involving Urology - D/C fluids - start on furosemide 40 mg Iv BID -daily bmp, I/o -renal diet -no indication for dialysis discussion at this time -continue to avoid nephrotoxins adn to support bp (2) CKD (chronic kidney disease) stage 4, GFR 15-29 ml/min: Plan: rapidly progressive per report of baseline 1.4 in fall 2021 and worse in September 2022 than in 08/2022 > would call his baseline currently in the 3s. Admission and Anticipated Discharge Date Admission Date: October 12, 2022 Subjective Patient seen and examined at bedside. He reports urge to void but has not been able to do so. Blood pressure stable; Review of Systems Review of Systems: Grossly obese, bilateral pedal edema , more om the foot and hands Results & Data ([facility]) Vital Signs (Past 12 Hours) Vital Signs Temp Pulse Pulse Resp BP BP Pulse Ox 10/14/22 12:19 36.5 C 74 12 119/77 96 10/14/22 08:25 10/14/22 07:30 36.5 C 86 12 124/75 93 10/14/22 03:45 37.0 C 84 20 101/67 97 O2 Del Method O2 Flow Rate 10/14/22 12:19 Oxymask 10/14/22 08:25 Nasal Cannula 3 10/14/22 07:30 Nasal Cannula 4 10/14/22 03:45 Nasal Cannula 4 Laboratory Results 10/14/22 07:14 10/14/22 07:14
[2022-10-14] MEDS: FUROSEMIDE 40 MG/4 ML VIAL IV SCH ×2 (13:21→20:46)
[2022-10-14] MEDS ORDERED: ONDANSETRON INJ 2 MG/ML 2 ML VIAL IV STA (20:26)
[2022-10-14] MEDS: HYDROXYCHLOROQUINE SULFATE 200 MG TAB PO SCH (20:47)
[2022-10-14 22:38] LABS: Appearance Urine Cloudy (Clear); Bacteria Urine Automated Negative (Negative); Bilirubin Urine Negative (Negative); Blood Urine 2+ (Negative); Color Urine Yellow; Epithelial Cell Urine Auto 20-30 /lpf (0-5); Glucose Urine UA Negative (Negative); Ketones Urine Trace (Negative); Leukocyte Esterase Urine 2+ (Negative); Nitrite Urine Negative (Negative); Protein Urine Trace (Negative); Specific Gravity Urine 1.015 (1.000-1.030); Urobilinogen Urine Negative (Negative); WBC Urine Automated >30 /hpf (0-5)
[2022-10-14 23:10] LABS: Urine Potassium 29.4 mmol/L
[2022-10-15] MEDS: DAPTOmycin 800 MG in SYRINGE 0 ML IV SCH (03:03)
[2022-10-15] MEDS: LACTATED RINGER'S 1,000 ML IV SCH (05:31)
[2022-10-15 06:30] LABS: Basophils # (auto) 0.09 K/uL (0-0.2); Basophils % (auto) 1.3 %; Eosinophils # (auto) 2.02 K/uL (0-0.50); Eosinophils % (auto) 29.2 %; Hematocrit (blood only) 30.5 % (40.1-51.0); Hemoglobin 9.2 g/dl (14.0-18.0); Immature Granulocytes # (auto) 0.03 K/uL (0.00-0.02); Immature Granulocytes % (auto) 0.4 %; Lymphocytes # (auto) 1.19 K/uL (1.2-3.4); Lymphocytes % (auto) 17.2 %; Mean Corpuscular Hemoglobin 28.1 pg (25.0-34.0); Mean Corpuscular Hgb Conc 30.2 g/dL (32.0-36.0); Mean Corpuscular Volume 93.3 fL (80.0-100.0); Mean Platelet Volume 9.9 fL (9.4-12.4); Monocytes # (auto) 0.51 K/uL (0.24-0.82); Monocytes % (auto) 7.4 %; Neutrophils # (auto) 3.08 K/uL (1.4-6.5); Neutrophils % (auto) 44.5 %; Platelet Count 262 K/uL (130-400); RDW Standard Deviation 57.7 fL (36.4-46.3); Red Blood Count 3.27 M/uL (4.63-6.08); White Blood Count 6.92 K/ul (4.8-10.8)
[2022-10-15 06:40] LABS: Prothrombin Time 39.4 Seconds (9.0-12.0)
[2022-10-15 07:11] LABS: Albumin Level 2.4 gm/dl (3.4-5.0); Bilirubin,Total 0.3 mg/dl (0.2-1.0); Calcium 9.6 mg/dl (8.5-10.1); Potassium 3.5 mmol/L (3.5-5.1)
[2022-10-15 07:17] LABS: Albumin Globulin Ratio 0.7 (0.9-2); Creatinine Clr Calc Pharmacy 34.8 ml/min; Est GFR (African American) 16.9 ml/min; Est GFR (Non-African American) 14.5 ml/min; Globulin 3.4 gm/dl (2.5-4.0); Total Protein 5.8 gm/dl (6.0-8.3)
[2022-10-15] MEDS: PANTOprazole 40 MG TAB PO SCH ×2 (08:16→21:27)
[2022-10-15] MEDS: FUROSEMIDE 40 MG/4 ML VIAL IV SCH ×2 (08:16→21:30)
[2022-10-15] MEDS ORDERED: ACETAMINOPHEN 1,000 MG/100 ML VIAL IV PRN (09:07)
--- NOTE | 2022-10-15 09:34 | Nephrology Progress Note ---
Date of Service October 15, 2022 Assessment & Plan (1) CHERYL (acute kidney injury): Plan: nonoliguric stage 1 CHERYL on CKD 4, cause unclear. BP is lower/labile which may have a role; ? if he may somehow have also had torsemide at home yesterday prior to presentation. - Renal fucntion have improved with diuresis, UOP is better. = Continue on lasix to 40 mg IV bid -Daily bmp, I/o and weight, preferbly on the same scale -renal diet -no indication for dialysis discussion at this time -continue to avoid nephrotoxins adn to support bp (2) CKD (chronic kidney disease) stage 4, GFR 15-29 ml/min: Plan: rapidly progressive per report of baseline 1.4 in fall 2021 and worse in September 2022 than in 08/2022 > would call his baseline currently in the 3s. Admission and Anticipated Discharge Date Admission Date: October 12, 2022 Subjective Patient seen and examined at bedside. UOP improved Blood pressure stable; Review of Systems Review of Systems: Grossly obese, bilateral pedal edema , more om the foot and hands Results & Data ([facility]) Vital Signs (Past 12 Hours) Vital Signs Temp Pulse Pulse Resp BP BP Pulse Ox 10/15/22 08:02 85 10/15/22 07:37 36.4 C L 87 20 107/75 97 10/15/22 03:06 36.4 C L 82 18 103/69 96 10/14/22 22:01 85 10/14/22 22:56 36.4 C L 81 18 117/82 93 O2 Del Method O2 Flow Rate 10/15/22 08:02 10/15/22 07:37 Nasal Cannula 4 10/15/22 03:06 Nasal Cannula 4 10/14/22 22:01 10/14/22 22:56 Oxymask 4 Laboratory Results 10/15/22 05:52 10/15/22 05:52
[2022-10-15] MEDS: ONDANSETRON INJ 2 MG/ML 2 ML VIAL IV PRN ×2 (09:56→17:28)
[2022-10-15] MEDS ORDERED: Nursing to Pharmacy Communication SCH (10:15)
--- NOTE | 2022-10-15 13:29 | Hospitalist Progress Note ---
Date of Service October 15, 2022 Assessment & Plan (1) CHERYL (acute kidney injury): (2) CKD (chronic kidney disease) stage 4, GFR 15-29 ml/min: (3) Morbid obesity: (4) Obesity hypoventilation syndrome: (5) Weakness: Plan Past medical history of hypertension, morbid obesity, ambulatory dysfunction, CKD, anemia, upper extremity DVT on warfarin, obesity hypoventilation syndrome presented from home due to generalized weakness. He was discharged 2 days prior to presentation to home. He was brought back as was unable to take care of him at home and wants SNF placement. Acute kidney injury on CKD: Hypotensive episodes intermittently since admission Was on verapamil, metoprolol and torsemide Creatinine up trended to 4.75; slight improvement Renal ultrasoundno hydronephrosis Was oliguric initially for 2 days on admission; improvement in urine output since starting IV Lasix. Plan; Nephrology on board; on Lasix as per nephrology. Strict input output monitoring. Patient unable to void; Starks placed by RN; Gram-positive cocci in clusters; PCR positive for staph epidermis -Was initially started on daptomycin. -Repeat blood culture negative; discontinue antibiotics. Morbid obesity Obesity hypoventilation syndrome Ambulatory dysfunction Generalized weakness Reports that he has been bedbound since November 2021; likely due to morbid obesity As nocturnal hypoxia; chronic CO2 retention Last admission; recommended to be discharged to SNF; wanted to go home. Came back in 3 days PlanPT OT, counseling done regarding morbid obesity, CPAP at night, History of acute DVT in left upper extremity Supratherapeutic INR Warfarin currently on hold; Will resume at a lower dose Vitamin D deficiency Vitamin D level less than 7 On vitamin D 50,000 units weekly for 6 weeks Other conditions; Hypertensioncurrently metoprolol, torsemide and verapamil on hold Rheumatoid arthritison Plaquenil. Anemia; likely due to lower GI bleed. Has EGD done on August 31, 2022; had 2 duodenal polyp likely hyperplastic. Negative for malignancy. Colonoscopy done in September 01, 2022; 10 mm polyp removed; tubular adenoma. Repeat colonoscopy in 5 years. Hemoglobin currently stable Full code DVT prophylaxis warfarin dispositioncurrently hospitalized due to acute kidney injury on CKD; placement to SNF when available. Admission and Anticipated Discharge Date Admission Date: October 12, 2022 Subjective Patient seen and examined at bedside. He reports nausea; has poor oral intake due to it. Urine output improved. Review of Systems Review of Systems: All systems reviewed & are unremarkable except as noted in Subjective Physical Exam Physical Exam: Constitutional: Alert, oriented x3; morbidly obese Respiratory: Bilateral clear breath sound Cardiovascular: RRR, no murmur, no edema Vessels: no JVD or carotid bruit Chest: normal inspection of chest Abdomen: Abdomen distended; nontender. Musculoskeletal: no cyanosis or clubbing, extremities motor strength 5/5 Skin: no rashes, warm and dry normal turgor Neurologic: Grossly intact; Psychiatric: A+Ox3, euthymic affect : deferred Results & Data Results & Data ([facility]) Vital Signs (Past 12 Hours) Vital Signs Temp Pulse Pulse Resp BP BP Pulse Ox 10/15/22 11:34 36.8 C 68 19 143/84 H 95 10/15/22 07:30 10/15/22 08:02 85 10/15/22 07:37 36.4 C L 87 20 107/75 97 10/15/22 03:06 36.4 C L 82 18 103/69 96 O2 Del Method O2 Flow Rate 10/15/22 11:34 Nasal Cannula 4 10/15/22 07:30 Nasal Cannula 3 10/15/22 08:02 10/15/22 07:37 Nasal Cannula 4 10/15/22 03:06 Nasal Cannula 4 Laboratory Results Laboratory Results WBC 6.92 K/ul (4.8-10.8) 10/15/22 05:52 RBC 3.27 M/uL (4.63-6.08) L 10/15/22 05:52 Hgb 9.2 g/dl (14.0-18.0) L 10/15/22 05:52 Hct 30.5 % (40.1-51.0) L 10/15/22 05:52 MCV 93.3 fL (80.0-100.0) 10/15/22 05:52 MCH 28.1 pg (25.0-34.0) 10/15/22 05:52 MCHC 30.2 g/dL (32.0-36.0) L 10/15/22 05:52 RDW Std Deviation 57.7 fL (36.4-46.3) H 10/15/22 05:52 RDW Coeff of Cheryl 17.0 % (11.5-14.5) H 10/15/22 05:52 Plt Count 262 K/uL (130-400) 10/15/22 05:52 MPV 9.9 fL (9.4-12.4) 10/15/22 05:52 Immature Gran % (Auto) 0.4 % 10/15/22 05:52 Neut % (Auto) 44.5 % 10/15/22 05:52 Lymph % (Auto) 17.2 % 10/15/22 05:52 [place] % (Auto) 7.4 % 10/15/22 05:52 Eos % (Auto) 29.2 % 10/15/22 05:52 Baso % (Auto) 1.3 % 10/15/22 05:52 Neut # (Auto) 3.08 K/uL (1.4-6.5) 10/15/22 05:52 Lymph # (Auto) 1.19 K/uL (1.2-3.4) L 10/15/22 05:52 [place] # (Auto) 0.51 K/uL (0.24-0.82) 10/15/22 05:52 Eos # (Auto) 2.02 K/uL (0-0.50) H 10/15/22 05:52 Baso # (Auto) 0.09 K/uL (0-0.2) 10/15/22 05:52 Immature Gran # (Auto) 0.03 K/uL (0.00-0.02) H 10/15/22 05:52 Absolute Nucleated RBC 0.02 K/uL (0-0) H 10/12/22 05:38 Nucleated RBC % (auto) 0.3 % 10/12/22 05:38 PT 39.4 Seconds (9.0-12.0) H 10/15/22 05:52 INR 4.0 (0.9-1.1) H 10/15/22 05:52 ABG pH 7.43 (7.35-7.45) 10/12/22 06:59 ABG pCO2 50 mmHg (35-46) H 10/12/22 06:59 ABG pO2 78 mmHg (80-95) L 10/12/22 06:59 ABG HCO3 33 mmol/L (19-24) H 10/12/22 06:59 ABG O2 Saturation 97.5 % (90-95) H 10/12/22 06:59 ABG Base Excess 7.7 mEq/L (-9-1.8) H 10/12/22 06:59 Galen Test Pos (Pos) 10/12/22 06:59 Oxygen Given 4L 10/12/22 06:59 Sodium 138 mmol/L (136-145) 10/15/22 05:52 Potassium 3.5 mmol/L (3.5-5.1) 10/15/22 05:52 Chloride 99 mmol/L (98-107) 10/15/22 05:52 Carbon Dioxide 31 mmol/L (21-32) 10/15/22 05:52 Anion Gap 8 (3-11) 10/15/22 05:52 BUN 55 mg/dl (6-23) H 10/15/22 05:52 Creatinine 4.23 mg/dl (0.6-1.4) H D 10/15/22 05:52 Est Cr Clr Drug Dosing 34.8 ml/min 10/15/22 05:52 Est GFR ( Amer) 16.9 ml/min 10/15/22 05:52 Est GFR (Non-Af Amer) 14.5 ml/min 10/15/22 05:52 BUN/Creatinine Ratio 13.0 (10-20) 10/15/22 05:52 Glucose 68 mg/dl (70-99(Fasting)) L 10/15/22 05:52 POC Glucose 93 mg/dl (70-99) 10/12/22 16:50 Estimat Average Glucose 108 mg/dl 10/12/22 05:38 Hemoglobin A1c 5.4 % (4.5-5.6) 10/12/22 05:38 Calcium 9.6 mg/dl (8.5-10.1) 10/15/22 05:52 Magnesium 1.7 mg/dl (1.7-2.4) 10/12/22 05:38 Total Bilirubin 0.3 mg/dl (0.2-1.0) 10/15/22 05:52 Direct Bilirubin 0.2 mg/dl (0-0.2) 10/12/22 05:38 AST 16 U/L (13-39) 10/15/22 05:52 ALT 8 U/L (7-52) 10/15/22 05:52 Alkaline Phosphatase 55 U/L (34-104) 10/15/22 05:52 Total Creatine Kinase 48 U/L (30-223) 10/13/22 05:28 Total Protein 5.8 gm/dl (6.0-8.3) L 10/15/22 05:52 Albumin 2.4 gm/dl (3.4-5.0) L 10/15/22 05:52 Globulin 3.4 gm/dl (2.5-4.0) 10/15/22 05:52 Albumin/Globulin Ratio 0.7 (0.9-2) L 10/15/22 05:52 Triglycerides 200 mg/dl (0-150) H 10/13/22 05:28 Cholesterol 131 mg/dl (0-200) 10/13/22 05:28 LDL Cholesterol, Calc 74 mg/dl 10/13/22 05:28 VLDL Cholesterol, Calc 40 mg/dl (0-30) H 10/13/22 05:28 HDL Cholesterol 17 mg/dl 10/13/22 05:28 Cholesterol/HDL Ratio 7.7 (0-5) H 10/13/22 05:28 Urine Color Yellow 10/14/22 22:20 Urine Appearance Cloudy (Clear) A 10/14/22 22:20 Urine pH 5.0 (4.5-7.5) 10/14/22 22:20 Ur Specific [place] 1.015 (1.000-1.030) 10/14/22 22:20 Urine Protein Trace (Negative) H 10/14/22 22:20 Urine Glucose (UA) Negative (Negative) 10/14/22 22:20 Urine Ketones Trace (Negative) H 10/14/22 22:20 Urine Blood 2+ (Negative) H 10/14/22 22:20 Urine Nitrite Negative (Negative) 10/14/22 22:20 Urine Bilirubin Negative (Negative) 10/14/22 22:20 Urine Urobilinogen Negative (Negative) 10/14/22 22:20 Ur Leukocyte Esterase 2+ (Negative) H 10/14/22 22:20 Urine WBC (Auto) >30 /hpf (0-5) H 10/14/22 22:20 Urine RBC (Auto) 10-30 /hpf (0-4) H 10/14/22 22:20 U Hyaline Cast (Auto) 10-30 /lpf (0-5) H 10/14/22 22:20 U Epithel Cells (Auto) 20-30 /lpf (0-5) H 10/14/22 22:20 Urine Bacteria (Auto) Negative (Negative) 10/14/22 22:20 Urine Yeast Not Reportable 10/14/22 22:20 Ur Random Creatinine 197.0 mg/dl 10/14/22 22:20 Urine Sodium 44 mmol/L 10/14/22 22:20 Urine Potassium 29.4 mmol/L 10/14/22 22:20 Urine Chloride 49 mmol/L 10/14/22 22:20 SARS-CoV-2, RNA, NAAT NEGATIVE (NEGATIVE) 10/12/22 05:23 Staphylococcus sp PCR DETECTED (NotDetected) A 10/13/22 05:28 mecA/C-Methicil Resis Gene DETECTED (NotDetected) A 10/13/22 05:28 Staph epidermidis (PCR) DETECTED (NotDetected) A 10/13/22 05:28 Bld Cult ID Panel PCR See PCR Comment (NotDetected) 10/13/22 05:28 Impressions Renal Ultrasound 10/13/22 07:41 ULTRASOUND KIDNEYS AND BLADDER CLINICAL HISTORY: Acute on chronic renal insufficiency. COMPARISON STUDY: Abdominal CT dated 08/29/2022. Renal ultrasound dated 08/30/2022 TECHNIQUE: Real-time, grayscale, and color flow sonography of the kidneys and bladder is performed. Images are reviewed in the transverse and longitudinal planes. FINDINGS: Kidneys: The kidneys are atrophic and echogenic indicating medical renal disease. The right kidney measures 13.9 cm in length and the left kidney measures 11.4 cm. There is no hydronephrosis. No shadowing renal calculi are identified. Bilateral renal cysts measure up to 5 cm. There is no sonographic evidence of contour deforming renal mass lesion. No perinephric fluid is identified. Bladder: The bladder is decompressed and could not be evaluated Upper abdomen: Survey images of the liver show evidence of steatosis. IMPRESSION: 1. The kidneys are atrophic and echogenic indicating medical renal disease. 2. No hydronephrosis. 3. The bladder was decompressed and could not be assessed. ACT 112: Negative or not required by law. Electronically signed by: Jethro Mills M.D. 10/13/2022 1:22 PM
[2022-10-15] MEDS: HYDROXYCHLOROQUINE SULFATE 200 MG TAB PO SCH (21:26)
[2022-10-16 06:18] LABS: Basophils # (auto) 0.05 K/uL (0-0.2); Basophils % (auto) 0.6 %; Eosinophils # (auto) 2.85 K/uL (0-0.50); Eosinophils % (auto) 36.6 %; Hematocrit (blood only) 33.4 % (40.1-51.0); Hemoglobin 9.9 g/dl (14.0-18.0); Immature Granulocytes # (auto) 0.02 K/uL (0.00-0.02); Immature Granulocytes % (auto) 0.3 %; Lymphocytes # (auto) 1.29 K/uL (1.2-3.4); Lymphocytes % (auto) 16.6 %; Mean Corpuscular Hemoglobin 28.2 pg (25.0-34.0); Mean Corpuscular Hgb Conc 29.6 g/dL (32.0-36.0); Mean Corpuscular Volume 95.2 fL (80.0-100.0); Mean Platelet Volume 9.6 fL (9.4-12.4); Monocytes # (auto) 0.55 K/uL (0.24-0.82); Monocytes % (auto) 7.1 %; Neutrophils # (auto) 3.02 K/uL (1.4-6.5); Neutrophils % (auto) 38.8 %; Platelet Count 277 K/uL (130-400); RDW Coefficient of Variation 17.2 % (11.5-14.5); RDW Standard Deviation 59.7 fL (36.4-46.3); Red Blood Count 3.51 M/uL (4.63-6.08); White Blood Count 7.78 K/ul (4.8-10.8)
[2022-10-16] MEDS ORDERED: PROMETHAZINE HCL 12.5 MG in SODIUM CHLORIDE 0.9% 50 ML IV ONE (06:30)
[2022-10-16 06:48] LABS: Albumin Globulin Ratio 0.7 (0.9-2); Albumin Level 2.6 gm/dl (3.4-5.0); BUN Creatinine Ratio 13.8 (10-20); Bilirubin,Total 0.4 mg/dl (0.2-1.0); Calcium 10.2 mg/dl (8.5-10.1); Creatinine Clr Calc Pharmacy 38.3 ml/min; Est GFR (Non-African American) 16.4 ml/min; Globulin 3.8 gm/dl (2.5-4.0); Potassium 3.5 mmol/L (3.5-5.1); Total Protein 6.4 gm/dl (6.0-8.3)
[2022-10-16 06:53] LABS: INR 3.3 (0.9-1.1); Prothrombin Time 33.1 Seconds (9.0-12.0)
[2022-10-16] MEDS: PANTOprazole 40 MG TAB PO SCH ×2 (07:59→20:36)
[2022-10-16] MEDS: FUROSEMIDE 40 MG/4 ML VIAL IV SCH ×2 (08:01→20:35)
--- NOTE | 2022-10-16 10:24 | Nephrology Progress Note ---
Date of Service October 16, 2022 Assessment & Plan Admission and Anticipated Discharge Date Admission Date: October 12, 2022 Subjective Assessment & Plan (1) CHERYL (acute kidney injury): Plan: CHERYL on CKD 4, cause unclear. BP is lower/labile and also o2 likely caused another episode of ATN. His repeated episodes of ATN causing ARF frequently are related with these Sudden drop in o2, BP and higher HR. very prone to ATN Renal function have improved with diuresis, UOP is better. Continue on lasix 80 mg IV bid -Daily bmp, I/o and weight, preferbly on the same scale -renal diet -no indication for dialysis discussion at this time -continue to avoid nephrotoxins and to support bp (2) CKD (chronic kidney disease) stage 4, GFR 15-29 ml/min: Plan: rapidly progressive per report of baseline 1.4 in fall 2021 and worse in September 2022 than in 08/2022 > would call his baseline currently in the 3s. Subjective Patient seen and examined at bedside. UOP improved Blood pressure stable. On o2 4 liter Review of Systems Review of Systems: Grossly obese, bilateral pedal edema , more om the foot and hands Results & Data ([facility]) Vital Signs (Past 12 Hours) Vital Signs Temp Pulse Pulse Resp BP Pulse Ox Pulse Ox 10/16/22 07:00 95 10/16/22 07:57 36.9 C 61 16 117/89 95 10/16/22 03:21 36.9 C 89 18 116/73 99 10/16/22 02:09 88 23 77 L 10/15/22 23:07 36.9 C 70 20 112/75 95 10/15/22 22:57 85 O2 Del Method O2 Del Method O2 Flow Rate O2 Flow Rate 10/16/22 07:00 Nasal Cannula 3 10/16/22 07:57 Nasal Cannula 4 10/16/22 03:21 BiPAP 10/16/22 02:09 4 10/15/22 23:07 BiPAP 10/15/22 22:57
--- NOTE | 2022-10-16 14:52 | Hospitalist Progress Note ---
Date of Service October 16, 2022 Assessment & Plan (1) CHERYL (acute kidney injury): (2) CKD (chronic kidney disease) stage 4, GFR 15-29 ml/min: (3) Morbid obesity: (4) Obesity hypoventilation syndrome: (5) Weakness: Plan Past medical history of hypertension, morbid obesity, ambulatory dysfunction, CKD, anemia, upper extremity DVT on warfarin, obesity hypoventilation syndrome presented from home due to generalized weakness. He was discharged 2 days prior to presentation to home. He was brought back as was unable to take care of him at home and wants SNF placement. Acute kidney injury on CKD: Hypotensive episodes intermittently since admission Was on verapamil, metoprolol and torsemide Creatinine up trended to 4.75 after admission; baseline is around 3. Initially given IV fluids. Currently on IV Lasix 80 mg twice daily. Creatinine down trending. Renal ultrasoundno hydronephrosis Was oliguric initially for 2 days on admission; improvement in urine output since starting IV Lasix. Plan; Nephrology on board; on Lasix as per nephrology. Strict input output monitoring. Patient unable to void; Straks placed by RN; Gram-positive cocci in clusters; PCR positive for staph epidermis -Was initially started on daptomycin. -Repeat blood culture negative; discontinue antibiotics. Morbid obesity Obesity hypoventilation syndrome Ambulatory dysfunction Generalized weakness Reports that he has been bedbound since November 2021; likely due to morbid obesity As nocturnal hypoxia; chronic CO2 retention Last admission; recommended to be discharged to SNF; wanted to go home. Came back in 3 days PlanPT OT, counseling done regarding morbid obesity, CPAP at night, History of acute DVT in left upper extremity Supratherapeutic INR Warfarin currently on hold; Will resume at a lower dose Vitamin D deficiency Vitamin D level less than 7 On vitamin D 50,000 units weekly for 6 weeks Other conditions; Hypertensioncurrently metoprolol, torsemide and verapamil on hold Rheumatoid arthritison Plaquenil. Anemia; likely due to lower GI bleed. Has EGD done on August 31, 2022; had 2 duodenal polyp likely hyperplastic. Negative for malignancy. Colonoscopy done in September 01, 2022; 10 mm polyp removed; tubular adenoma. Repeat colonoscopy in 5 years. Hemoglobin currently stable Full code DVT prophylaxis warfarin dispositioncurrently hospitalized due to acute kidney injury on CKD; placement to SNF when available. Admission and Anticipated Discharge Date Admission Date: October 12, 2022 Subjective Patient seen and examined at bedside. He is sleepy but awake evaluate voice. He denies any fever, chills, chest pain, shortness of breath, abdominal pain or urinary symptoms. Urine output of 750 cc in last 24 hours. Review of Systems Review of Systems: All systems reviewed & are unremarkable except as noted in Subjective Physical Exam Physical Exam: Constitutional: Alert, oriented x3; morbidly obese Respiratory: Bilateral clear breath sound Cardiovascular: RRR, no murmur, no edema Vessels: no JVD or carotid bruit Chest: normal inspection of chest Abdomen: Abdomen distended; nontender. Musculoskeletal: no cyanosis or clubbing, extremities motor strength 5/5 Skin: no rashes, warm and dry normal turgor Neurologic: Grossly intact; Psychiatric: A+Ox3, euthymic affect : deferred Results & Data Results & Data ([facility]) Vital Signs (Past 12 Hours) Vital Signs Temp Pulse Resp BP Pulse Ox Pulse Ox O2 Del Method 10/16/22 12:00 Nasal Cannula 10/16/22 11:28 36.9 C 90 16 139/78 96 Room Air 10/16/22 07:00 95 10/16/22 07:57 36.9 C 61 16 117/89 95 Nasal Cannula 10/16/22 03:21 36.9 C 89 18 116/73 99 BiPAP O2 Del Method O2 Flow Rate O2 Flow Rate 10/16/22 12:00 3 10/16/22 11:28 10/16/22 07:00 Nasal Cannula 3 10/16/22 07:57 4 10/16/22 03:21 Laboratory Results Laboratory Results WBC 7.78 K/ul (4.8-10.8) 10/16/22 05:59 RBC 3.51 M/uL (4.63-6.08) L 10/16/22 05:59 Hgb 9.9 g/dl (14.0-18.0) L 10/16/22 05:59 Hct 33.4 % (40.1-51.0) L 10/16/22 05:59 MCV 95.2 fL (80.0-100.0) 10/16/22 05:59 MCH 28.2 pg (25.0-34.0) 10/16/22 05:59 MCHC 29.6 g/dL (32.0-36.0) L 10/16/22 05:59 RDW Std Deviation 59.7 fL (36.4-46.3) H 10/16/22 05:59 RDW Coeff of Cheryl 17.2 % (11.5-14.5) H 10/16/22 05:59 Plt Count 277 K/uL (130-400) 10/16/22 05:59 MPV 9.6 fL (9.4-12.4) 10/16/22 05:59 Immature Gran % (Auto) 0.3 % 10/16/22 05:59 Neut % (Auto) 38.8 % 10/16/22 05:59 Lymph % (Auto) 16.6 % 10/16/22 05:59 [place] % (Auto) 7.1 % 10/16/22 05:59 Eos % (Auto) 36.6 % 10/16/22 05:59 Baso % (Auto) 0.6 % 10/16/22 05:59 Neut # (Auto) 3.02 K/uL (1.4-6.5) 10/16/22 05:59 Lymph # (Auto) 1.29 K/uL (1.2-3.4) 10/16/22 05:59 [place] # (Auto) 0.55 K/uL (0.24-0.82) 10/16/22 05:59 Eos # (Auto) 2.85 K/uL (0-0.50) H 10/16/22 05:59 Baso # (Auto) 0.05 K/uL (0-0.2) 10/16/22 05:59 Immature Gran # (Auto) 0.02 K/uL (0.00-0.02) 10/16/22 05:59 Absolute Nucleated RBC 0.02 K/uL (0-0) H 10/12/22 05:38 Nucleated RBC % (auto) 0.3 % 10/12/22 05:38 PT 33.1 Seconds (9.0-12.0) H 10/16/22 05:59 INR 3.3 (0.9-1.1) H 10/16/22 05:59 ABG pH 7.43 (7.35-7.45) 10/12/22 06:59 ABG pCO2 50 mmHg (35-46) H 10/12/22 06:59 ABG pO2 78 mmHg (80-95) L 10/12/22 06:59 ABG HCO3 33 mmol/L (19-24) H 10/12/22 06:59 ABG O2 Saturation 97.5 % (90-95) H 10/12/22 06:59 ABG Base Excess 7.7 mEq/L (-9-1.8) H 10/12/22 06:59 Galen Test Pos (Pos) 10/12/22 06:59 Oxygen Given 4L 10/12/22 06:59 Sodium 139 mmol/L (136-145) 10/16/22 05:59 Potassium 3.5 mmol/L (3.5-5.1) 10/16/22 05:59 Chloride 98 mmol/L (98-107) 10/16/22 05:59 Carbon Dioxide 32 mmol/L (21-32) 10/16/22 05:59 Anion Gap 9 (3-11) 10/16/22 05:59 BUN 53 mg/dl (6-23) H 10/16/22 05:59 Creatinine 3.84 mg/dl (0.6-1.4) H D 10/16/22 05:59 Est Cr Clr Drug Dosing 38.3 ml/min 10/16/22 05:59 Est GFR ( Amer) 19.0 ml/min 10/16/22 05:59 Est GFR (Non-Af Amer) 16.4 ml/min 10/16/22 05:59 BUN/Creatinine Ratio 13.8 (10-20) 10/16/22 05:59 Glucose 67 mg/dl (70-99(Fasting)) L 10/16/22 05:59 POC Glucose 93 mg/dl (70-99) 10/12/22 16:50 Estimat Average Glucose 108 mg/dl 10/12/22 05:38 Hemoglobin A1c 5.4 % (4.5-5.6) 10/12/22 05:38 Calcium 10.2 mg/dl (8.5-10.1) H 10/16/22 05:59 Magnesium 1.7 mg/dl (1.7-2.4) 10/12/22 05:38 Total Bilirubin 0.4 mg/dl (0.2-1.0) 10/16/22 05:59 Direct Bilirubin 0.2 mg/dl (0-0.2) 10/12/22 05:38 AST 18 U/L (13-39) 10/16/22 05:59 ALT 9 U/L (7-52) 10/16/22 05:59 Alkaline Phosphatase 60 U/L (34-104) 10/16/22 05:59 Total Creatine Kinase 48 U/L (30-223) 10/13/22 05:28 Total Protein 6.4 gm/dl (6.0-8.3) 10/16/22 05:59 Albumin 2.6 gm/dl (3.4-5.0) L 10/16/22 05:59 Globulin 3.8 gm/dl (2.5-4.0) 10/16/22 05:59 Albumin/Globulin Ratio 0.7 (0.9-2) L 10/16/22 05:59 Triglycerides 200 mg/dl (0-150) H 10/13/22 05:28 Cholesterol 131 mg/dl (0-200) 10/13/22 05:28 LDL Cholesterol, Calc 74 mg/dl 10/13/22 05:28 VLDL Cholesterol, Calc 40 mg/dl (0-30) H 10/13/22 05:28 HDL Cholesterol 17 mg/dl 10/13/22 05:28 Cholesterol/HDL Ratio 7.7 (0-5) H 10/13/22 05:28 Urine Color Yellow 10/14/22 22:20 Urine Appearance Cloudy (Clear) A 10/14/22 22:20 Urine pH 5.0 (4.5-7.5) 10/14/22 22:20 Ur Specific [place] 1.015 (1.000-1.030) 10/14/22 22:20 Urine Protein Trace (Negative) H 10/14/22 22:20 Urine Glucose (UA) Negative (Negative) 10/14/22 22:20 Urine Ketones Trace (Negative) H 10/14/22 22:20 Urine Blood 2+ (Negative) H 10/14/22 22:20 Urine Nitrite Negative (Negative) 10/14/22 22:20 Urine Bilirubin Negative (Negative) 10/14/22 22:20 Urine Urobilinogen Negative (Negative) 10/14/22 22:20 Ur Leukocyte Esterase 2+ (Negative) H 10/14/22 22:20 Urine WBC (Auto) >30 /hpf (0-5) H 10/14/22 22:20 Urine RBC (Auto) 10-30 /hpf (0-4) H 10/14/22 22:20 U Hyaline Cast (Auto) 10-30 /lpf (0-5) H 10/14/22 22:20 U Epithel Cells (Auto) 20-30 /lpf (0-5) H 10/14/22 22:20 Urine Bacteria (Auto) Negative (Negative) 10/14/22 22:20 Urine Yeast Not Reportable 10/14/22 22:20 Ur Random Creatinine 197.0 mg/dl 10/14/22 22:20 Urine Sodium 44 mmol/L 10/14/22 22:20 Urine Potassium 29.4 mmol/L 10/14/22 22:20 Urine Chloride 49 mmol/L 10/14/22 22:20 SARS-CoV-2, RNA, NAAT NEGATIVE (NEGATIVE) 10/12/22 05:23 Staphylococcus sp PCR DETECTED (NotDetected) A 10/13/22 05:28 mecA/C-Methicil Resis Gene DETECTED (NotDetected) A 10/13/22 05:28 Staph epidermidis (PCR) DETECTED (NotDetected) A 10/13/22 05:28 Bld Cult ID Panel PCR See PCR Comment (NotDetected) 10/13/22 05:28 Impressions Renal Ultrasound 10/13/22 07:41 ULTRASOUND KIDNEYS AND BLADDER CLINICAL HISTORY: Acute on chronic renal insufficiency. COMPARISON STUDY: Abdominal CT dated 08/29/2022. Renal ultrasound dated 08/30/2022 TECHNIQUE: Real-time, grayscale, and color flow sonography of the kidneys and bladder is performed. Images are reviewed in the transverse and longitudinal planes. FINDINGS: Kidneys: The kidneys are atrophic and echogenic indicating medical renal disease. The right kidney measures 13.9 cm in length and the left kidney measures 11.4 cm. There is no hydronephrosis. No shadowing renal calculi are identified. Bilateral renal cysts measure up to 5 cm. There is no sonographic evidence of contour deforming renal mass lesion. No perinephric fluid is identified. Bladder: The bladder is decompressed and could not be evaluated Upper abdomen: Survey images of the liver show evidence of steatosis. IMPRESSION: 1. The kidneys are atrophic and echogenic indicating medical renal disease. 2. No hydronephrosis. 3. The bladder was decompressed and could not be assessed. ACT 112: Negative or not required by law. Electronically signed by: Jethro Mills M.D. 10/13/2022 1:22 PM
[2022-10-16] MEDS: HYDROXYCHLOROQUINE SULFATE 200 MG TAB PO SCH (20:36)
[2022-10-17] MEDS ORDERED: PHENAZOPYRIDINE HCL 200 MG TAB PO PRN (00:49)
[2022-10-17 07:58] LABS: Basophils # (auto) 0.06 K/uL (0-0.2); Basophils % (auto) 0.7 %; Eosinophils % (auto) 42.3 %; Hematocrit (blood only) 30.9 % (40.1-51.0); Hemoglobin 9.1 g/dl (14.0-18.0); Immature Granulocytes # (auto) 0.02 K/uL (0.00-0.02); Immature Granulocytes % (auto) 0.2 %; Lymphocytes # (auto) 1.25 K/uL (1.2-3.4); Lymphocytes % (auto) 15.6 %; Mean Corpuscular Hemoglobin 27.9 pg (25.0-34.0); Mean Corpuscular Hgb Conc 29.4 g/dL (32.0-36.0); Mean Corpuscular Volume 94.8 fL (80.0-100.0); Mean Platelet Volume 9.8 fL (9.4-12.4); Monocytes # (auto) 0.55 K/uL (0.24-0.82); Monocytes % (auto) 6.8 %; Neutrophils # (auto) 2.75 K/uL (1.4-6.5); Neutrophils % (auto) 34.4 %; Platelet Count 235 K/uL (130-400); RDW Coefficient of Variation 17.1 % (11.5-14.5); RDW Standard Deviation 58.5 fL (36.4-46.3); Red Blood Count 3.26 M/uL (4.63-6.08); White Blood Count 8.03 K/ul (4.8-10.8)
[2022-10-17 08:10] LABS: INR 2.9 (0.9-1.1); Prothrombin Time 28.7 Seconds (9.0-12.0)
[2022-10-17 08:36] LABS: Albumin Level 2.3 gm/dl (3.4-5.0); Bilirubin,Total 0.4 mg/dl (0.2-1.0); Calcium 9.7 mg/dl (8.5-10.1); Potassium 3.1 mmol/L (3.5-5.1)
[2022-10-17 08:42] LABS: Albumin Globulin Ratio 0.7 (0.9-2); BUN Creatinine Ratio 12.8 (10-20); Creatinine Clr Calc Pharmacy 36.4 ml/min; Est GFR (African American) 17.7 ml/min; Est GFR (Non-African American) 15.3 ml/min; Globulin 3.5 gm/dl (2.5-4.0); Total Protein 5.8 gm/dl (6.0-8.3)
[2022-10-17] MEDS: PANTOprazole 40 MG TAB PO SCH ×2 (09:28→20:33)
[2022-10-17] MEDS: FUROSEMIDE 40 MG/4 ML VIAL IV SCH (09:31)
[2022-10-17] MEDS ORDERED: POTASSIUM CHLORIDE CRTAB 20 MEQ TABCR PO STA (09:34)
[2022-10-17] MEDS ORDERED: POTASSIUM CHLORIDE PWD 20 MEQ PACK PO ONE (09:57)
--- NOTE | 2022-10-17 10:20 | Nephrology Progress Note ---
Date of Service October 17, 2022 Assessment & Plan Admission and Anticipated Discharge Date Admission Date: October 12, 2022 Subjective Subjective Assessment & Plan (1) CHERYL (acute kidney injury): Plan: CHERYL on CKD 4, cause unclear.BP is lower/labile and also o2 likely caused another episode of ATN. His repeated episodes of ATN causing ARF frequently are related with these Sudden drop in o2, BP and higher HR. very prone to ATN. Creat goes up and down with no clear cause and pattern Low 4 and high 3's would be baseline for now Already got iv lasix this AM. will not give PM dose. reassess in AM after AM labs Renal function have improved with diuresis, UOP is better. -Daily bmp, I/o and weight -renal diet -no indication for dialysis discussion at this time -continue to avoid nephrotoxins and to support bp (2) CKD (chronic kidney disease) stage 4, GFR 15-29 ml/min: Plan: rapidly progressive per report of baseline 1.4 in fall 2021 and worse in September 2022 than in 08/2022 Subjective Patient seen and examined at bedside. UOP improved Blood pressure stable. On o2 4 liter Review of Systems Review of Systems: Grossly obese, bilateral pedal edema , more om the foot and hands Exam__morbidly obese. chest Clear. NO resp distress in rest CVS-_Distant RRR and No murmur Abd--soft non tender. ext--1 + edema. Results & Data ([facility]) Vital Signs (Past 12 Hours) Vital Signs Temp Pulse Pulse Pulse Resp BP Pulse Ox 10/17/22 07:41 36.7 C 59 L 20 146/93 H 95 10/17/22 07:00 88 10/17/22 04:00 36.6 C 92 H 20 144/83 H 92 10/17/22 00:00 36.7 C 91 H 18 145/82 H 92 10/17/22 00:06 97 H 18 92 10/16/22 23:00 93 H 10/16/22 23:00 O2 Del Method O2 Flow Rate 10/17/22 07:41 Nasal Cannula 3 10/17/22 07:00 10/17/22 04:00 Nasal Cannula 4 10/17/22 00:00 Nasal Cannula 4 10/17/22 00:06 4 10/16/22 23:00 10/16/22 23:00 Nasal Cannula 4
--- NOTE | 2022-10-17 13:45 | Hospitalist Progress Note ---
Date of Service October 17, 2022 Assessment & Plan (1) CHERYL (acute kidney injury): (2) CKD (chronic kidney disease) stage 4, GFR 15-29 ml/min: (3) Morbid obesity: (4) Obesity hypoventilation syndrome: (5) Weakness: Plan Past medical history of hypertension, morbid obesity, ambulatory dysfunction, CKD, anemia, upper extremity DVT on warfarin, obesity hypoventilation syndrome presented from home due to generalized weakness. He was discharged 2 days prior to presentation to home. He was brought back as was unable to take care of him at home and wants SNF placement. Acute kidney injury on CKD: Hypotensive episodes intermittently since admission Was on verapamil, metoprolol and torsemide Creatinine up trended to 4.75 after admission; baseline is around 3. Initially given IV fluids. Currently on IV Lasix 80 mg twice daily. Creatinine around 4. Renal ultrasoundno hydronephrosis Was oliguric initially for 2 days on admission; improvement in urine output since starting IV Lasix. Plan; Nephrology on board; on Lasix as per nephrology. Strict input output monitoring. Patient unable to void; Starks placed by RN; Gram-positive cocci in clusters; PCR positive for staph epidermis -Was initially started on daptomycin. -Repeat blood culture negative; discontinue antibiotics. Eosinophilia: Noted to have eosinophilia since October 06, 2022. Eosinophil count of 3400 today. We will obtain peripheral smear. Monitor Morbid obesity Obesity hypoventilation syndrome Ambulatory dysfunction Generalized weakness Reports that he has been bedbound since November 2021; likely due to morbid obesity As nocturnal hypoxia; chronic CO2 retention Last admission; recommended to be discharged to SNF; wanted to go home. Came back in 3 days PlanPT OT, counseling done regarding morbid obesity, CPAP at night, History of acute DVT in left upper extremity Supratherapeutic INR Warfarin currently on hold; Will resume at a lower dose Vitamin D deficiency Vitamin D level less than 7 On vitamin D 50,000 units weekly for 6 weeks Other conditions; Hypertensioncurrently metoprolol, torsemide and verapamil on hold Rheumatoid arthritison Plaquenil. Anemia; likely due to lower GI bleed. Has EGD done on August 31, 2022; had 2 duodenal polyp likely hyperplastic. Negative for malignancy. Colonoscopy done in September 01, 2022; 10 mm polyp removed; tubular adenoma. Repeat colonoscopy in 5 years. Hemoglobin currently stable Full code DVT prophylaxis warfarin dispositioncurrently hospitalized due to acute kidney injury on CKD; placement to SNF when available. Admission and Anticipated Discharge Date Admission Date: October 12, 2022 Subjective Patient seen and examined at bedside. Reports nausea and vomiting. Unable to undergo a KUB due to size. Urine output reassuring. Having regular bowel movement. Review of Systems Review of Systems: All systems reviewed & are unremarkable except as noted in Subjective Physical Exam Physical Exam: Constitutional: Alert, oriented x3; morbidly obese Respiratory: Bilateral clear breath sound Cardiovascular: RRR, no murmur, no edema Vessels: no JVD or carotid bruit Chest: normal inspection of chest Abdomen: Abdomen distended; nontender. Musculoskeletal: no cyanosis or clubbing, extremities motor strength 5/5 Skin: no rashes, warm and dry normal turgor Neurologic: Grossly intact; Psychiatric: A+Ox3, euthymic affect : deferred Results & Data Results & Data ([facility]) Vital Signs (Past 12 Hours) Vital Signs Temp Pulse Pulse Pulse Resp BP Pulse Ox 10/17/22 11:08 36.6 C 94 H 20 130/83 97 10/17/22 08:00 10/17/22 07:41 36.7 C 59 L 20 146/93 H 95 10/17/22 07:00 88 10/17/22 04:00 36.6 C 92 H 20 144/83 H 92 O2 Del Method O2 Flow Rate 10/17/22 11:08 Nasal Cannula 3 10/17/22 08:00 Room Air 10/17/22 07:41 Nasal Cannula 3 10/17/22 07:00 10/17/22 04:00 Nasal Cannula 4 Laboratory Results Laboratory Results WBC 8.03 K/ul (4.8-10.8) 10/17/22 07:17 RBC 3.26 M/uL (4.63-6.08) L 10/17/22 07:17 Hgb 9.1 g/dl (14.0-18.0) L 10/17/22 07:17 Hct 30.9 % (40.1-51.0) L 10/17/22 07:17 MCV 94.8 fL (80.0-100.0) 10/17/22 07:17 MCH 27.9 pg (25.0-34.0) 10/17/22 07:17 MCHC 29.4 g/dL (32.0-36.0) L 10/17/22 07:17 RDW Std Deviation 58.5 fL (36.4-46.3) H 10/17/22 07:17 RDW Coeff of Cheryl 17.1 % (11.5-14.5) H 10/17/22 07:17 Plt Count 235 K/uL (130-400) 10/17/22 07:17 MPV 9.8 fL (9.4-12.4) 10/17/22 07:17 Immature Gran % (Auto) 0.2 % 10/17/22 07:17 Neut % (Auto) 34.4 % 10/17/22 07:17 Lymph % (Auto) 15.6 % 10/17/22 07:17 Callahan % (Auto) 6.8 % 10/17/22 07:17 Eos % (Auto) 42.3 % 10/17/22 07:17 Baso % (Auto) 0.7 % 10/17/22 07:17 Neut # (Auto) 2.75 K/uL (1.4-6.5) 10/17/22 07:17 Lymph # (Auto) 1.25 K/uL (1.2-3.4) 10/17/22 07:17 Callahan # (Auto) 0.55 K/uL (0.24-0.82) 10/17/22 07:17 Eos # (Auto) 3.40 K/uL (0-0.50) H 10/17/22 07:17 Baso # (Auto) 0.06 K/uL (0-0.2) 10/17/22 07:17 Immature Gran # (Auto) 0.02 K/uL (0.00-0.02) 10/17/22 07:17 Absolute Nucleated RBC 0.02 K/uL (0-0) H 10/12/22 05:38 Nucleated RBC % (auto) 0.3 % 10/12/22 05:38 PT 28.7 Seconds (9.0-12.0) H 10/17/22 07:17 INR 2.9 (0.9-1.1) H 10/17/22 07:17 ABG pH 7.43 (7.35-7.45) 10/12/22 06:59 ABG pCO2 50 mmHg (35-46) H 10/12/22 06:59 ABG pO2 78 mmHg (80-95) L 10/12/22 06:59 ABG HCO3 33 mmol/L (19-24) H 10/12/22 06:59 ABG O2 Saturation 97.5 % (90-95) H 10/12/22 06:59 ABG Base Excess 7.7 mEq/L (-9-1.8) H 10/12/22 06:59 Galen Test Pos (Pos) 10/12/22 06:59 Oxygen Given 4L 10/12/22 06:59 Sodium 139 mmol/L (136-145) 10/17/22 07:17 Potassium 3.1 mmol/L (3.5-5.1) L 10/17/22 07:17 Chloride 99 mmol/L (98-107) 10/17/22 07:17 Carbon Dioxide 34 mmol/L (21-32) H 10/17/22 07:17 Anion Gap 6 (3-11) 10/17/22 07:17 BUN 52 mg/dl (6-23) H 10/17/22 07:17 Creatinine 4.06 mg/dl (0.6-1.4) H 10/17/22 07:17 Est Cr Clr Drug Dosing 36.4 ml/min 10/17/22 07:17 Est GFR ( Amer) 17.7 ml/min 10/17/22 07:17 Est GFR (Non-Af Amer) 15.3 ml/min 10/17/22 07:17 BUN/Creatinine Ratio 12.8 (10-20) 10/17/22 07:17 Glucose 72 mg/dl (70-99(Fasting)) 10/17/22 07:17 POC Glucose 93 mg/dl (70-99) 10/12/22 16:50 Estimat Average Glucose 108 mg/dl 10/12/22 05:38 Hemoglobin A1c 5.4 % (4.5-5.6) 10/12/22 05:38 Calcium 9.7 mg/dl (8.5-10.1) 10/17/22 07:17 Magnesium 1.7 mg/dl (1.7-2.4) 10/12/22 05:38 Total Bilirubin 0.4 mg/dl (0.2-1.0) 10/17/22 07:17 Direct Bilirubin 0.2 mg/dl (0-0.2) 10/12/22 05:38 AST 16 U/L (13-39) 10/17/22 07:17 ALT 9 U/L (7-52) 10/17/22 07:17 Alkaline Phosphatase 51 U/L (34-104) 10/17/22 07:17 Total Creatine Kinase 48 U/L (30-223) 10/13/22 05:28 Total Protein 5.8 gm/dl (6.0-8.3) L 10/17/22 07:17 Albumin 2.3 gm/dl (3.4-5.0) L 10/17/22 07:17 Globulin 3.5 gm/dl (2.5-4.0) 10/17/22 07:17 Albumin/Globulin Ratio 0.7 (0.9-2) L 10/17/22 07:17 Triglycerides 200 mg/dl (0-150) H 10/13/22 05:28 Cholesterol 131 mg/dl (0-200) 10/13/22 05:28 LDL Cholesterol, Calc 74 mg/dl 10/13/22 05:28 VLDL Cholesterol, Calc 40 mg/dl (0-30) H 10/13/22 05:28 HDL Cholesterol 17 mg/dl 10/13/22 05:28 Cholesterol/HDL Ratio 7.7 (0-5) H 10/13/22 05:28 Urine Color Yellow 10/14/22 22:20 Urine Appearance Cloudy (Clear) A 10/14/22 22:20 Urine pH 5.0 (4.5-7.5) 10/14/22 22:20 Ur Specific [place] 1.015 (1.000-1.030) 10/14/22 22:20 Urine Protein Trace (Negative) H 10/14/22 22:20 Urine Glucose (UA) Negative (Negative) 10/14/22 22:20 Urine Ketones Trace (Negative) H 10/14/22 22:20 Urine Blood 2+ (Negative) H 10/14/22 22:20 Urine Nitrite Negative (Negative) 10/14/22 22:20 Urine Bilirubin Negative (Negative) 10/14/22 22:20 Urine Urobilinogen Negative (Negative) 10/14/22 22:20 Ur Leukocyte Esterase 2+ (Negative) H 10/14/22 22:20 Urine WBC (Auto) >30 /hpf (0-5) H 10/14/22 22:20 Urine RBC (Auto) 10-30 /hpf (0-4) H 10/14/22 22:20 U Hyaline Cast (Auto) 10-30 /lpf (0-5) H 10/14/22 22:20 U Epithel Cells (Auto) 20-30 /lpf (0-5) H 10/14/22 22:20 Urine Bacteria (Auto) Negative (Negative) 10/14/22 22:20 Urine Yeast Not Reportable 10/14/22 22:20 Ur Random Creatinine 197.0 mg/dl 10/14/22 22:20 Urine Sodium 44 mmol/L 10/14/22 22:20 Urine Potassium 29.4 mmol/L 10/14/22 22:20 Urine Chloride 49 mmol/L 10/14/22 22:20 SARS-CoV-2, RNA, NAAT NEGATIVE (NEGATIVE) 10/12/22 05:23 Staphylococcus sp PCR DETECTED (NotDetected) A 10/13/22 05:28 mecA/C-Methicil Resis Gene DETECTED (NotDetected) A 10/13/22 05:28 Staph epidermidis (PCR) DETECTED (NotDetected) A 10/13/22 05:28 Bld Cult ID Panel PCR See PCR Comment (NotDetected) 10/13/22 05:28 Impressions Renal Ultrasound 10/13/22 07:41 ULTRASOUND KIDNEYS AND BLADDER CLINICAL HISTORY: Acute on chronic renal insufficiency. COMPARISON STUDY: Abdominal CT dated 08/29/2022. Renal ultrasound dated 08/30/2022 TECHNIQUE: Real-time, grayscale, and color flow sonography of the kidneys and bladder is performed. Images are reviewed in the transverse and longitudinal planes. FINDINGS: Kidneys: The kidneys are atrophic and echogenic indicating medical renal disease. The right kidney measures 13.9 cm in length and the left kidney measures 11.4 cm. There is no hydronephrosis. No shadowing renal calculi are identified. Bilateral renal cysts measure up to 5 cm. There is no sonographic evidence of contour deforming renal mass lesion. No perinephric fluid is identified. Bladder: The bladder is decompressed and could not be evaluated Upper abdomen: Survey images of the liver show evidence of steatosis. IMPRESSION: 1. The kidneys are atrophic and echogenic indicating medical renal disease. 2. No hydronephrosis. 3. The bladder was decompressed and could not be assessed. ACT 112: Negative or not required by law. Electronically signed by: Jethro Mills M.D. 10/13/2022 1:22 PM
[2022-10-17] MEDS: HYDROXYCHLOROQUINE SULFATE 200 MG TAB PO SCH (20:33)
[2022-10-18 07:26] LABS: Basophils # (auto) 0.07 K/uL (0-0.2); Basophils % (auto) 0.9 %; Eosinophils # (auto) 3.17 K/uL (0-0.50); Eosinophils % (auto) 41.4 %; Hematocrit (blood only) 29.8 % (40.1-51.0); Immature Granulocytes # (auto) 0.01 K/uL (0.00-0.02); Immature Granulocytes % (auto) 0.1 %; Lymphocytes # (auto) 1.43 K/uL (1.2-3.4); Lymphocytes % (auto) 18.7 %; Mean Corpuscular Hemoglobin 28.4 pg (25.0-34.0); Mean Corpuscular Hgb Conc 30.2 g/dL (32.0-36.0); Monocytes # (auto) 0.53 K/uL (0.24-0.82); Monocytes % (auto) 6.9 %; Neutrophils # (auto) 2.44 K/uL (1.4-6.5); Platelet Count 231 K/uL (130-400); RDW Coefficient of Variation 17.2 % (11.5-14.5); RDW Standard Deviation 58.8 fL (36.4-46.3); Red Blood Count 3.17 M/uL (4.63-6.08); White Blood Count 7.65 K/ul (4.8-10.8)
[2022-10-18 07:41] LABS: Albumin Globulin Ratio 0.6 (0.9-2); Albumin Level 2.2 gm/dl (3.4-5.0); Bilirubin,Total 0.4 mg/dl (0.2-1.0); Calcium 9.9 mg/dl (8.5-10.1); Creatinine Clr Calc Pharmacy 38.8 ml/min; Est GFR (Non-African American) 16.4 ml/min; Globulin 3.5 gm/dl (2.5-4.0); Potassium 3.1 mmol/L (3.5-5.1); Total Protein 5.7 gm/dl (6.0-8.3)
[2022-10-18] MEDS: PANTOprazole 40 MG TAB PO SCH ×2 (07:50→20:22)
--- NOTE | 2022-10-18 12:44 | Nephrology Progress Note ---
Date of Service October 18, 2022 Assessment & Plan Admission and Anticipated Discharge Date Admission Date: October 12, 2022 Subjective Assessment & Plan (1) CHERYL (acute kidney injury): Plan: CHERYL on CKD 4, cause unclear.BP is lower/labile and also o2 likely caused another episode of ATN. His repeated episodes of ATN causing ARF frequently are related with these Sudden drop in o2, BP and higher HR. very prone to ATN. Creat goes up and down with no clear cause and pattern Low 4 and high 3's would be baseline for now Stop Iv lasix. Willl put him on torsemide 40 daily--without Diuretics his Urine output is really low. -no indication for dialysis discussion at this time -continue to avoid nephrotoxins and to support bp (2) CKD (chronic kidney disease) stage 4, GFR 15-29 ml/min: Plan: rapidly progressive per report of baseline 1.4 in fall 2021 and worse in September 2022 than in 08/2022 Subjective Patient seen and examined at bedside. Blood pressure stable. On room Air now. Review of Systems Review of Systems: Grossly obese, bilateral pedal edema , more om the foot and hands Exam__morbidly obese. chest Clear. NO resp distress in rest CVS-_Distant RRR and No murmur Abd--soft non tender. ext--1 + edema. Results & Data ([facility]) Vital Signs (Past 12 Hours) Vital Signs Temp Pulse Pulse Resp BP BP Pulse Ox 10/18/22 11:40 36.3 C L 94 H 16 129/86 96 10/18/22 11:15 10/18/22 07:00 10/18/22 07:01 36.4 C L 97 H 20 126/74 93 10/18/22 06:55 93 H 10/18/22 03:00 36.4 C L 93 H 20 123/77 93 Pulse Ox O2 Del Method O2 Del Method O2 Flow Rate O2 Flow Rate 10/18/22 11:40 Room Air 10/18/22 11:15 Nasal Cannula 3 10/18/22 07:00 93 Nasal Cannula 2 10/18/22 07:01 Nasal Cannula 3 10/18/22 06:55 10/18/22 03:00 Nasal Cannula 4
[2022-10-18] MEDS: TORSEMIDE 10 MG TAB PO SCH (13:11)
[2022-10-18] MEDS ORDERED: POTASSIUM CHLORIDE PWD 20 MEQ PACK PO ONE (14:21)
--- NOTE | 2022-10-18 14:37 | Hospitalist Progress Note ---
Date of Service October 18, 2022 Assessment & Plan (1) CHERYL (acute kidney injury): (2) CKD (chronic kidney disease) stage 4, GFR 15-29 ml/min: (3) Morbid obesity: (4) Obesity hypoventilation syndrome: (5) Weakness: Plan Past medical history of hypertension, morbid obesity, ambulatory dysfunction, CKD, anemia, upper extremity DVT on warfarin, obesity hypoventilation syndrome presented from home due to generalized weakness. He was discharged 2 days prior to presentation to home. He was brought back as was unable to take care of him at home and wants SNF placement. Acute kidney injury on CKD: Hypotensive episodes intermittently since admission Was on verapamil, metoprolol and torsemide Creatinine up trended to 4.75 after admission; baseline is around 3. Initially given IV fluids. Received IV Lasix as per nephrology initially; now switched to oral torsemide. Renal ultrasoundno hydronephrosis Was oliguric initially for 2 days on admission; improvement in urine output since starting IV Lasix. Plan; Nephrology on board; on torsemide. Strict input output monitoring. Patient unable to void; Starks placed by RN; Gram-positive cocci in clusters; PCR positive for staph epidermis -Was initially started on daptomycin. -Repeat blood culture negative; discontinue antibiotics. Eosinophilia: Noted to have eosinophilia since October 06, 2022. Peripheral smear consult was done; remarkable for eosinophilia with reactive changes. Suspect that it may be related to allergy condition or drug allergy. 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 Consult placed; Morbid obesity Obesity hypoventilation syndrome Ambulatory dysfunction Generalized weakness Reports that he has been bedbound since November 2021; likely due to morbid obesity As nocturnal hypoxia; chronic CO2 retention Last admission; recommended to be discharged to SNF; wanted to go home. Came back in 3 days PlanPT OT, counseling done regarding morbid obesity, CPAP at night, History of acute DVT in left upper extremity Supratherapeutic INR INR improved; Warfarin resumed Vitamin D deficiency Vitamin D level less than 7 On vitamin D 50,000 units weekly for 6 weeks Other conditions; Hypertensioncurrently metoprolol, torsemide and verapamil on hold Rheumatoid arthritison Plaquenil. Anemia; likely due to lower GI bleed. Has EGD done on August 31, 2022; had 2 duodenal polyp likely hyperplastic. Negative for malignancy. Colonoscopy done in September 01, 2022; 10 mm polyp removed; tubular adenoma. Repeat colonoscopy in 5 years. Hemoglobin currently stable Full code DVT prophylaxis warfarin dispositioncurrently hospitalized due to acute kidney injury on CKD; placement to SNF when available. Admission and Anticipated Discharge Date Admission Date: October 12, 2022 Subjective Patient seen and examined at bedside. He says his appetite is slightly better; nausea and vomiting has improved. Urine output of 700 cc in last 24 hours. Review of Systems Review of Systems: All systems reviewed & are unremarkable except as noted in Subjective Physical Exam Physical Exam: Constitutional: Alert, oriented x3; morbidly obese Respiratory: Bilateral clear breath sound Cardiovascular: RRR, no murmur, no edema Vessels: no JVD or carotid bruit Chest: normal inspection of chest Abdomen: Abdomen distended; nontender. Musculoskeletal: no cyanosis or clubbing, extremities motor strength 5/5 Skin: no rashes, warm and dry normal turgor Neurologic: Grossly intact; Psychiatric: A+Ox3, euthymic affect : deferred Results & Data Results & Data ([facility]) Vital Signs (Past 12 Hours) Vital Signs Temp Pulse Pulse Resp BP BP Pulse Ox 10/18/22 11:40 36.3 C L 94 H 16 129/86 96 10/18/22 11:15 10/18/22 07:00 10/18/22 07:01 36.4 C L 97 H 20 126/74 93 10/18/22 06:55 93 H 10/18/22 03:00 36.4 C L 93 H 20 123/77 93 Pulse Ox O2 Del Method O2 Del Method O2 Flow Rate O2 Flow Rate 10/18/22 11:40 Room Air 10/18/22 11:15 Nasal Cannula 3 10/18/22 07:00 93 Nasal Cannula 2 10/18/22 07:01 Nasal Cannula 3 10/18/22 06:55 10/18/22 03:00 Nasal Cannula 4 Laboratory Results Laboratory Results WBC 7.65 K/ul (4.8-10.8) 10/18/22 06:14 RBC 3.17 M/uL (4.63-6.08) L 10/18/22 06:14 Hgb 9.0 g/dl (14.0-18.0) L 10/18/22 06:14 Hct 29.8 % (40.1-51.0) L 10/18/22 06:14 MCV 94.0 fL (80.0-100.0) 10/18/22 06:14 MCH 28.4 pg (25.0-34.0) 10/18/22 06:14 MCHC 30.2 g/dL (32.0-36.0) L 10/18/22 06:14 RDW Std Deviation 58.8 fL (36.4-46.3) H 10/18/22 06:14 RDW Coeff of Cheryl 17.2 % (11.5-14.5) H 10/18/22 06:14 Plt Count 231 K/uL (130-400) 10/18/22 06:14 MPV 10.0 fL (9.4-12.4) 10/18/22 06:14 Immature Gran % (Auto) 0.1 % 10/18/22 06:14 Neut % (Auto) 32.0 % 10/18/22 06:14 Lymph % (Auto) 18.7 % 10/18/22 06:14 [place] % (Auto) 6.9 % 10/18/22 06:14 Eos % (Auto) 41.4 % 10/18/22 06:14 Baso % (Auto) 0.9 % 10/18/22 06:14 Neut # (Auto) 2.44 K/uL (1.4-6.5) 10/18/22 06:14 Lymph # (Auto) 1.43 K/uL (1.2-3.4) 10/18/22 06:14 [place] # (Auto) 0.53 K/uL (0.24-0.82) 10/18/22 06:14 Eos # (Auto) 3.17 K/uL (0-0.50) H 10/18/22 06:14 Baso # (Auto) 0.07 K/uL (0-0.2) 10/18/22 06:14 Immature Gran # (Auto) 0.01 K/uL (0.00-0.02) 10/18/22 06:14 Absolute Nucleated RBC 0.02 K/uL (0-0) H 10/12/22 05:38 Nucleated RBC % (auto) 0.3 % 10/12/22 05:38 Peripher Smr Path Cons 10/17/22 07:17 PT 28.7 Seconds (9.0-12.0) H 10/17/22 07:17 INR 2.9 (0.9-1.1) H 10/17/22 07:17 ABG pH 7.43 (7.35-7.45) 10/12/22 06:59 ABG pCO2 50 mmHg (35-46) H 10/12/22 06:59 ABG pO2 78 mmHg (80-95) L 10/12/22 06:59 ABG HCO3 33 mmol/L (19-24) H 10/12/22 06:59 ABG O2 Saturation 97.5 % (90-95) H 10/12/22 06:59 ABG Base Excess 7.7 mEq/L (-9-1.8) H 10/12/22 06:59 Galen Test Pos (Pos) 10/12/22 06:59 Oxygen Given 4L 10/12/22 06:59 Sodium 140 mmol/L (136-145) 10/18/22 06:14 Potassium 3.1 mmol/L (3.5-5.1) L 10/18/22 06:14 Chloride 99 mmol/L (98-107) 10/18/22 06:14 Carbon Dioxide 33 mmol/L (21-32) H 10/18/22 06:14 Anion Gap 8 (3-11) 10/18/22 06:14 BUN 50 mg/dl (6-23) H 10/18/22 06:14 Creatinine 3.84 mg/dl (0.6-1.4) H 10/18/22 06:14 Est Cr Clr Drug Dosing 38.8 ml/min 10/18/22 06:14 Est GFR ( Amer) 19.0 ml/min 10/18/22 06:14 Est GFR (Non-Af Amer) 16.4 ml/min 10/18/22 06:14 BUN/Creatinine Ratio 13.0 (10-20) 10/18/22 06:14 Glucose 70 mg/dl (70-99(Fasting)) 10/18/22 06:14 POC Glucose 93 mg/dl (70-99) 10/12/22 16:50 Estimat Average Glucose 108 mg/dl 10/12/22 05:38 Hemoglobin A1c 5.4 % (4.5-5.6) 10/12/22 05:38 Calcium 9.9 mg/dl (8.5-10.1) 10/18/22 06:14 Magnesium 1.7 mg/dl (1.7-2.4) 10/12/22 05:38 Total Bilirubin 0.4 mg/dl (0.2-1.0) 10/18/22 06:14 Direct Bilirubin 0.2 mg/dl (0-0.2) 10/12/22 05:38 AST 17 U/L (13-39) 10/18/22 06:14 ALT 8 U/L (7-52) 10/18/22 06:14 Alkaline Phosphatase 47 U/L (34-104) 10/18/22 06:14 Total Creatine Kinase 48 U/L (30-223) 10/13/22 05:28 Total Protein 5.7 gm/dl (6.0-8.3) L 10/18/22 06:14 Albumin 2.2 gm/dl (3.4-5.0) L 10/18/22 06:14 Globulin 3.5 gm/dl (2.5-4.0) 10/18/22 06:14 Albumin/Globulin Ratio 0.6 (0.9-2) L 10/18/22 06:14 Triglycerides 200 mg/dl (0-150) H 10/13/22 05:28 Cholesterol 131 mg/dl (0-200) 10/13/22 05:28 LDL Cholesterol, Calc 74 mg/dl 10/13/22 05:28 VLDL Cholesterol, Calc 40 mg/dl (0-30) H 10/13/22 05:28 HDL Cholesterol 17 mg/dl 10/13/22 05:28 Cholesterol/HDL Ratio 7.7 (0-5) H 10/13/22 05:28 Urine Color Yellow 10/14/22 22:20 Urine Appearance Cloudy (Clear) A 10/14/22 22:20 Urine pH 5.0 (4.5-7.5) 10/14/22 22:20 Ur Specific [place] 1.015 (1.000-1.030) 10/14/22 22:20 Urine Protein Trace (Negative) H 10/14/22 22:20 Urine Glucose (UA) Negative (Negative) 10/14/22 22:20 Urine Ketones Trace (Negative) H 10/14/22 22:20 Urine Blood 2+ (Negative) H 10/14/22 22:20 Urine Nitrite Negative (Negative) 10/14/22 22:20 Urine Bilirubin Negative (Negative) 10/14/22 22:20 Urine Urobilinogen Negative (Negative) 10/14/22 22:20 Ur Leukocyte Esterase 2+ (Negative) H 10/14/22 22:20 Urine WBC (Auto) >30 /hpf (0-5) H 10/14/22 22:20 Urine RBC (Auto) 10-30 /hpf (0-4) H 10/14/22 22:20 U Hyaline Cast (Auto) 10-30 /lpf (0-5) H 10/14/22 22:20 U Epithel Cells (Auto) 20-30 /lpf (0-5) H 10/14/22 22:20 Urine Bacteria (Auto) Negative (Negative) 10/14/22 22:20 Urine Yeast Not Reportable 10/14/22 22:20 Ur Random Creatinine 197.0 mg/dl 10/14/22 22:20 Urine Sodium 44 mmol/L 10/14/22 22:20 Urine Potassium 29.4 mmol/L 10/14/22 22:20 Urine Chloride 49 mmol/L 10/14/22 22:20 SARS-CoV-2, RNA, NAAT NEGATIVE (NEGATIVE) 10/12/22 05:23 Staphylococcus sp PCR DETECTED (NotDetected) A 10/13/22 05:28 mecA/C-Methicil Resis Gene DETECTED (NotDetected) A 10/13/22 05:28 Staph epidermidis (PCR) DETECTED (NotDetected) A 10/13/22 05:28 Bld Cult ID Panel PCR See PCR Comment (NotDetected) 10/13/22 05:28 Impressions Renal Ultrasound 10/13/22 07:41 ULTRASOUND KIDNEYS AND BLADDER CLINICAL HISTORY: Acute on chronic renal insufficiency. COMPARISON STUDY: Abdominal CT dated 08/29/2022. Renal ultrasound dated 08/30/2022 TECHNIQUE: Real-time, grayscale, and color flow sonography of the kidneys and bladder is performed. Images are reviewed in the transverse and longitudinal planes. FINDINGS: Kidneys: The kidneys are atrophic and echogenic indicating medical renal disease. The right kidney measures 13.9 cm in length and the left kidney measures 11.4 cm. There is no hydronephrosis. No shadowing renal calculi are identified. Bilateral renal cysts measure up to 5 cm. There is no sonographic evidence of contour deforming renal mass lesion. No perinephric fluid is identified. Bladder: The bladder is decompressed and could not be evaluated Upper abdomen: Survey images of the liver show evidence of steatosis. IMPRESSION: 1. The kidneys are atrophic and echogenic indicating medical renal disease. 2. No hydronephrosis. 3. The bladder was decompressed and could not be assessed. ACT 112: Negative or not required by law. Electronically signed by: Jethro Mills M.D. 10/13/2022 1:22 PM
[2022-10-18] MEDS: WARFARIN SOD 0.5 MG TAB PO SCH (16:26)
[2022-10-18] MEDS: ACETAMINOPHEN 325 MG TAB PO PRN (19:07)
[2022-10-18] MEDS: HYDROXYCHLOROQUINE SULFATE 200 MG TAB PO SCH (20:22)
--- NOTE | 2022-10-18 21:23 | Allergy & Immunology Consult ---
Date of Consultation October 18, 2022 Assessment & Plan (1) Eosinophilia: Patients presents with a very high eosinophil level, much too high to be related to atopic disease. DDx includes: 1. Drug allergy/ Drug-induced AIN: Most often these are associated with rashes and/or fever, but can present without these findings. Most common drugs based on what he has received is PPI, and less likely diuretics. He has not had any antibiotics temporally related. However, there was a big gap in checking blood eos levels, so difficult to know what the levels were like. Also Cr has not mirrored eos rise, but it does not completely rule out AIN. I recommend that we discontinue the protonix. Unfortunately there is high cross reactivity between PPIs, so would avoid all for now. If one is absolutely needed, Prevacid may have the least cross reactivity. This can be difficult to diagnose. Recommend getting UA to evaluate stain for eos, WBC casts. 2. Hypereosinophilic syndrome (HES). This is also high on the list. We should evaluate for this is well: Tryptase level, Vitamin B12 level, Fip1-PGDFRA translocation, T-cell receptor rearragement, flow for lymphoma/leukemia markers, troponin to screen for cardiac involvement, possibly need to repeat echo 3. Vasculitis. No findings that would make me concerned about EGPA 4. Malignancy. CT chest/abd/pelvis showed no masses or lymphadenopathy, so low on the list. 5. Parasitic infection. Unlikely, but should check strongyloides serology. Can be seen in warmer states and he moved from [place] last fall. 6. Adrenal insufficiency. Unlikely at this point, and usually eos don't go this high. Once blood work and urine has been sent, recommend starting on prednisone 60-80 mg/day with serial CBC with diff to confirm eos are dropping. Eos in this range can infiltrate tissue (heart, [employer] [employer], blood vessels, kidney, liver), so essential to get level below 1500 cells/mcl, ideally below 1000 cells/mcl and remove an culprit drugs that may be contributing. (2) Severe anemia: Etiology still not clear. Common to see in HES, so this is still a concern. (3) CHERYL (acute kidney injury): History of Present Illness Attending Physician: Jayson Hines MD History of Present Illness This is a 57 year old male that presented initially in Aug 2022 with acute on chronic renal failure, encephalopathy, anemia. During his hospitalization, he developed a DVT, elevated troponin, respiratory distress. He was discharged briefly in Sep, but readmitted within a few days due to weakness and ongoing renal failure. He was found to have increasing blood eosinophil levels, first noted on 10/06/22. It increased to a max of 3400 cells/mcl. A peripheral smear was sent, but it showed only increased eos. Eos levels are below. His creatinine has waxed and waned through the inpatient stay, but not necessarily related to eosinophil level. His anemia has been stable. No other WBC abnormality. PMNs and lymphs have been stable. No history of asthma. He moved to [place] from [place] in 2021. No other travel history. In terms of his current symptoms, the main issue today is nausea vomiting. He says that he is not able to keep anything down. He also had diarrhea yesterday despite eating much. He continues to have generalized weakness. He denies any rashes or itching. He denies any shortness of breath. Workup has included: 08/31: colonoscopy to look for GI bleed given anemia (none found); 2 polyps, no eos on bx 08/29: EKG and Echo given bump in troponin, unremarkable (prior to eos increase) 08/29: Chest, abdomen, pelvis CT, unremarkable other than possible kidney cysts b/l - ? hemorrhagic/proteinaceous. Repeat u/s recommended to exclude solid mass. U/S c/w simple and complex renal cysts. 09/13: RUE doppler positive for right cephalic vein thrombus (from antcubital fossa to distal forearm 09/13: blood cx positive for coag neg staph. Multiple other blood cultures. I reviewed his medication history inpatient. - He was started on protonix on 08-29-22 and this has been continued since. - Started on Coumadin on 09/08 and continued - Started on verpamil on 08/29 and continued - started on metoprolol on 08/29 - Treated with Cefepime from 08/29-09/04 - Hydroxycholoroquine started on 10/01/22 - Has been getting different diuretics - lasix, metolazone, torsemide - Carvedilol, started... - He was also treated with prednsione for a few days starting on 09/02. No mention of why in hospital notes. Allergies Allergy/AdvReac Type Severity Reaction Status Date / Time Iodinated Contrast Media Allergy Hives Verified 10/12/22 15:49 iodine Allergy Hives Verified 10/12/22 15:49 Home Medications Medication Instructions Recorded Confirmed Type verapamil 240 mg 24 hr 240 mg PO QAM 08/29/22 10/12/22 History capsule,extended release calcium carbonate 200 mg calcium 500 mg PO TID PRN dyspepsia #30 10/07/22 10/12/22 Rx (500 mg) chewable tablet (Tums) tabs carvedilol 12.5 mg tablet 12.5 mg PO BID #60 tabs 10/07/22 10/12/22 Rx ergocalciferol (vitamin D2) 1,250 50,000 unit PO Q7D@0800 30 days #4 10/07/22 10/12/22 Rx mcg (50,000 unit) capsule caps hydroxychloroquine 200 mg tablet 200 mg PO HS 30 days #30 tabs 10/07/22 10/12/22 Rx metoprolol tartrate 25 mg tablet 25 mg PO BID 30 days #60 tabs 10/07/22 10/12/22 Rx pantoprazole 40 mg tablet,delayed 40 mg PO BID 30 days #60 tabs 10/07/22 10/12/22 Rx release torsemide 20 mg tablet 20 mg PO QAM #30 tabs 10/07/22 10/12/22 Rx warfarin 1 mg tablet 0.5 mg PO DAILY@1600 30 days #30 10/07/22 10/12/22 Rx tabs Patient History Medical History CHERYL (acute kidney injury) Anemia CKD (chronic kidney disease) stage 4, GFR 15-29 ml/min DVT (deep venous thrombosis) Eosinophilia Morbid obesity Obesity hypoventilation syndrome Social History Smoking Status: Never smoker Hx Alcohol Use: No Hx Substance Use: No Preferred Language: Amharic Communication Ability: Effective Pond Worker Required: No Beliefs That Will Affect Care: None Current Living Situation: Spouse Feels Safe at Home: Yes Safety Concerns: Feels Safe At This Time Assistive Devices: Oxygen - Continuous Review of Systems Constitutional: as per Subjective / HPI Eyes: as per Subjective / HPI Ear, Nose, Mouth, Throat: as per Subjective / HPI Respiratory: as per Subjective / HPI Cardiovascular: as per Subjective / HPI Gastrointestinal: as per Subjective / HPI Genitourinary: + as per Subjective / HPI Musculoskeletal: as per Subjective / HPI Integumentary: as per Subjective / HPI Neurologic: as per Subjective / HPI Psychiatric: as per Subjective / HPI Endocrine: as per Subjective / HPI Hematologic / Lymphatic: as per Subjective / HPI Allergy / Immunological: as per Subjective / HPI Physical Exam Constitutional: WD/WN, vitals as above Eyes: no conjunctival abnormality and sclerae not anicteric ENMT: external ear and nose normal, oropharynx normal Neck: trachea midline Respiratory: normal respiratory effort and able to speak in complete sentences; does not use accessory muscles Musculoskeletal: Head/Neck/Chest: head atraumatic Gait: normal gait Skin: no rashes and no lesions Psychiatric: A+Ox3, euthymic affect Results & Data ([facility]) Vital Signs (Past 12 Hours) Vital Signs Temp Pulse Pulse Resp BP BP Pulse Ox 10/18/22 20:00 36.9 C 93 H 20 133/82 94 10/18/22 16:14 37.2 C 97 H 16 119/79 97 10/18/22 15:07 101 H 10/18/22 11:40 36.3 C L 94 H 16 129/86 96 10/18/22 11:15 O2 Del Method O2 Flow Rate 10/18/22 20:00 Nasal Cannula 3 10/18/22 16:14 Nasal Cannula 3 10/18/22 15:07 10/18/22 11:40 Room Air 10/18/22 11:15 Nasal Cannula 3 Coding Level of Care Code 97422 INT INP/OBS CARE 3/75MIN Diagnoses Eosinophilia D72.19 Severe anemia D64.9 CHERYL (acute kidney injury) N17.9
[2022-10-19 06:51] LABS: INR 2.2 (0.9-1.1); Prothrombin Time 22.4 Seconds (9.0-12.0)
[2022-10-19] MEDS: PANTOprazole 40 MG TAB PO SCH (07:49)
[2022-10-19] MEDS: TORSEMIDE 10 MG TAB PO SCH (07:49)
[2022-10-19] MEDS: ACETAMINOPHEN 325 MG TAB PO PRN (07:49)
[2022-10-19] MEDS: ERGOCALCIFEROL 50,000 UNITS 1250 MCG CAP PO SCH (07:50)
[2022-10-19] MEDS ORDERED: FAMOTIDINE 20 MG TAB PO SCH (09:00)
[2022-10-19] MEDS: predniSONE 20 MG TAB PO SCH (09:53)
[2022-10-19 10:12] LABS: BUN Creatinine Ratio 13.2 (10-20); Calcium 9.9 mg/dl (8.5-10.1); Creatinine Clr Calc Pharmacy 40.4 ml/min; Est GFR (African American) 20.1 ml/min; Est GFR (Non-African American) 17.4 ml/min; Potassium 3.1 mmol/L (3.5-5.1)
[2022-10-19 10:18] LABS: Troponin I High Sensitivity 10.8 pg/ml (0-20)
[2022-10-19 10:26] LABS: Appearance Urine Clear (Clear); Bacteria Urine Automated Negative (Negative); Bilirubin Urine Negative (Negative); Blood Urine Trace (Negative); Color Urine Yellow; Glucose Urine UA Negative (Negative); Ketones Urine Negative (Negative); Leukocyte Esterase Urine Trace (Negative); Nitrite Urine Negative (Negative); Protein Urine Negative (Negative); RBC Urine Automated 0-4 /hpf (0-4); Specific Gravity Urine 1.011 (1.000-1.030); Urobilinogen Urine Negative (Negative)
[2022-10-19] MEDS ORDERED: POTASSIUM CHLORIDE CRTAB 20 MEQ TABCR PO SCH (10:30)
--- NOTE | 2022-10-19 10:32 | Nephrology Progress Note ---
Date of Service October 19, 2022 Assessment & Plan Admission and Anticipated Discharge Date Admission Date: October 12, 2022 Subjective Assessment & Plan (1) CHERYL (acute kidney injury): Plan: CHERYL on CKD 4, cause unclear.BP is lower/labile and also o2 likely caused another episode of ATN. His repeated episodes of ATN causing ARF frequently are related with these Sudden drop in o2, BP and higher HR. very prone to ATN. Creat goes up and down with no clear cause and pattern Low 4 and high 3's would be baseline for now torsemide 40 daily--without Diuretics his Urine output is really low. K is low so 40meq bid. -no indication for dialysis discussion at this time -continue to avoid nephrotoxins and to support bp reviewed Allergy note regarding Eosinophilia. ? About AIN. however the random rise and fall in creat does not seem to fit the pattern we see in AIN--clinically seems more in line with Intermittent ATN. hard to r/o AIN without renal biopsy which with his body habitus is too risky. Creat trending down for now anyway. Note plan for empiric prednisone which will be deferred to Allergy (2) CKD (chronic kidney disease) stage 4, GFR 15-29 ml/min: Plan: rapidly progressive per report of baseline 1.4 in fall 2021 and worse in September 2022 than in 08/2022 Subjective Patient seen and examined at bedside. Blood pressure stable. On room Air now. Review of Systems Review of Systems: Grossly obese, bilateral pedal edema , more om the foot and hands Exam__morbidly obese. chest Clear. NO resp distress in rest CVS-_Distant RRR and No murmur Abd--soft non tender. ext--1 + edema. Results & Data ([facility]) Vital Signs (Past 12 Hours) Vital Signs Temp Pulse Pulse Resp BP BP Pulse Ox 10/19/22 10:19 88 10/19/22 07:00 10/19/22 07:55 10/19/22 07:45 36.7 C 95 H 16 124/78 95 10/19/22 04:31 36.8 C 95 H 20 136/85 92 10/18/22 22:44 98 H O2 Del Method O2 Del Method O2 Flow Rate 10/19/22 10:19 10/19/22 07:00 Room Air 10/19/22 07:55 Nasal Cannula 3 10/19/22 07:45 Nasal Cannula 4 10/19/22 04:31 Nasal Cannula 4 10/18/22 22:44
[2022-10-19] MEDS ORDERED: ALUMINUM/MAGNESIUM SUSP 30 ML UDC PO STA (14:02)
[2022-10-19] MEDS ORDERED: ALUMINUM/MAGNESIUM SUSP 30 ML UDC PO PRN (14:02)
--- NOTE | 2022-10-19 14:50 | Gastrointestinal Consultation ---
Date of Consultation October 19, 2022 Assessment & Plan (1) Nausea & vomiting: (2) Epigastric abdominal pain: Patient is a 57 years old male with morbid obesity, DM II, RA, HTN, HLD, RUTH, chronic anemia, DVT on Warfarin, who is currently admitted for weakness, ambulatory dysfunction and for placement as is unable to care for him at home anymore. We are seeing him for n/v, and epigastric pain symptoms. Last abdominal imaging studies about [address] abdomen pelvis without contrast. At that point no acute obstructive, inflammatory or gallbladder pathology is noted. He has had EGD and colonoscopy done over the last month as well for anemia, with findings of duodenitis, tubular adenoma rectal polyp, hemorrhoids and diverticulosis. DDx: gastritis/duodenitis, gastroparesis, ? related to eosinophilia, depression - Repeat CT abd/pelvis wo contrast (has ATN) - Consider gastric emptying study - Continue Protonix and Pepcid at current doses; add Carafate 1g BID - Diet as tolerated - Symptomatic management with antiemetics prn History of Present Illness Reason for Consultation: Epigastric pain, nausea and vomiting Requesting Physician: Dr. Lai Rebolledo Attending Physician: Dr. Rosalinda Guzman History of Present Illness Mr. Bowie is a 57 years old male with medical history of diabetes mellitus type 2, rheumatoid arthritis, RUTH, chronic anemia, CKD, HTN, HLD, gout, DVT on warfarin, morbid obesity with BMI 55, who was admitted for weakness, ambulatory dysfunction and for placement as his cannot take care of him at home anymore. He was just admitted in this hospital from August 29 through October 09. During that time. He was seen by our GI group for anemia. Had EGD and colonoscopy evaluations which showed upper GI polyps, nonspecific duodenitis negative for malignancy, rectal polyp which was tubular adenoma but negative for high-grade dysplasia, diverticulosis of the sigmoid colon and internal hemorrhoids. GI is consulted today as patient is complaining of persistent nausea, vomiting and very poor appetite. He is also complaining of epigastric abdominal pain as soon as he eats. LFTs normal. Denies odynophagia or dysphagia. Denies any other associated symptoms including fever, chills, chest pain, shortness of breath. Is moving his bowels well, had 4 episodes of bowel movements yesterday. No black or tarry stools or rectal bleeding. So far he is receiving Protonix and Pepcid on a twice daily dose by mouth, Zofran as needed as well. Noted that he is currently being followed by nephrology for suspected ATN. Allergy also seen him for eosinophilia, going to be started on prednisone. Allergies Allergy/AdvReac Type Severity Reaction Status Date / Time Iodinated Contrast Media Allergy Hives Verified 10/12/22 15:49 iodine Allergy Hives Verified 10/12/22 15:49 Home Medications Medication Instructions Recorded Confirmed Type verapamil 240 mg 24 hr 240 mg PO QAM 08/29/22 10/12/22 History capsule,extended release calcium carbonate 200 mg calcium 500 mg PO TID PRN dyspepsia #30 10/07/22 10/12/22 Rx (500 mg) chewable tablet (Tums) tabs carvedilol 12.5 mg tablet 12.5 mg PO BID #60 tabs 10/07/22 10/12/22 Rx ergocalciferol (vitamin D2) 1,250 50,000 unit PO Q7D@0800 30 days #4 10/07/22 10/12/22 Rx mcg (50,000 unit) capsule caps hydroxychloroquine 200 mg tablet 200 mg PO HS 30 days #30 tabs 10/07/22 10/12/22 Rx metoprolol tartrate 25 mg tablet 25 mg PO BID 30 days #60 tabs 10/07/22 10/12/22 Rx pantoprazole 40 mg tablet,delayed 40 mg PO BID 30 days #60 tabs 10/07/22 10/12/22 Rx release torsemide 20 mg tablet 20 mg PO QAM #30 tabs 10/07/22 10/12/22 Rx warfarin 1 mg tablet 0.5 mg PO DAILY@1600 30 days #30 10/07/22 10/12/22 Rx tabs Patient History Medical History CHERYL (acute kidney injury) Anemia CKD (chronic kidney disease) stage 4, GFR 15-29 ml/min DVT (deep venous thrombosis) Eosinophilia Morbid obesity Obesity hypoventilation syndrome Social History Smoking Status: Never smoker Hx Alcohol Use: No Hx Substance Use: No Preferred Language: Polish Communication Ability: Effective Sales Service Rep Required: No Beliefs That Will Affect Care: None Current Living Situation: Spouse Feels Safe at Home: Yes Safety Concerns: Feels Safe At This Time Assistive Devices: Oxygen - Continuous Review of Systems Review of Systems: All systems reviewed & are unremarkable except as noted in HPI & below Physical Exam Constitutional: + morbidly obese and cooperative Eyes: PERRL, conjunctivae normal, anicteric sclerae ENMT: external ear and nose normal, oropharynx normal Respiratory: normal respiratory effort, lungs clear to auscultation Cardiovascular: RRR, no murmur, no edema Gastrointestinal (Abdomen): TTP epigastric, BS +, soft, non distended Skin: no rashes, warm and dry no jaundice Psychiatric: A+Ox3, euthymic affect Lymphatic: no lymphedema Results & Data ([facility]) Vital Signs (Past 12 Hours) Vital Signs Temp Pulse Pulse Resp BP BP Pulse Ox 10/19/22 11:28 37.2 C 92 H 16 124/75 92 10/19/22 10:19 88 10/19/22 07:00 10/19/22 07:55 10/19/22 07:45 36.7 C 95 H 16 124/78 95 10/19/22 04:31 36.8 C 95 H 20 136/85 92 O2 Del Method O2 Del Method O2 Flow Rate 10/19/22 11:28 Nasal Cannula 4 10/19/22 10:19 10/19/22 07:00 Room Air 10/19/22 07:55 Nasal Cannula 3 10/19/22 07:45 Nasal Cannula 4 10/19/22 04:31 Nasal Cannula 4
--- NOTE | 2022-10-19 16:14 | Hospitalist Progress Note ---
Date of Service October 19, 2022 Assessment & Plan (1) CHERYL (acute kidney injury): (2) CKD (chronic kidney disease) stage 4, GFR 15-29 ml/min: Plan: per Dr. Hines's notes with addendum: Past medical history of hypertension, morbid obesity, ambulatory dysfunction, CKD, anemia, upper extremity DVT on warfarin, obesity hypoventilation syndrome presented from home due to generalized weakness. He was discharged 2 days prior to presentation to home. He was brought back as was unable to take care of him at home and wants SNF placement. Acute kidney injury on CKD: Hypotensive episodes intermittently since admission Was on verapamil, metoprolol and torsemide Creatinine up trended to 4.75 after admission; baseline is around 3. Initially given IV fluids. Received IV Lasix as per nephrology initially; now switched to oral torsemide. Renal ultrasoundno hydronephrosis Was oliguric initially for 2 days on admission; improvement in urine output since starting IV Lasix. Plan; 10/19 Creatinine 3.6 Currently on torsemide 20 mg p.o. daily Nephrology service on board Eosinophilia: Noted to have eosinophilia since October 06, 2022. Peripheral smear consult was done; remarkable for eosinophilia with reactive changes. Suspect that it may be related to allergy condition or drug allergy. 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 10/19 Discussed with manager research development Dr. Ferrell Possible etiology: Hypereosinophilic syndrome, versus drug reaction from Protonix Serologic markers ordered Protonix discontinued, transition to famotidine twice daily Started on prednisone 60 mg p.o. daily Monitor CBC with differentials Persistent nausea, epigastric pain Status post EGD last August 2022: Positive polyps CT abdomen pelvis ordered Hypereosinophilia contributing? Prednisone started As needed meds ordered for dyspepsia Gram-positive cocci in clusters; PCR positive for staph epidermis -Was initially started on daptomycin. -Repeat blood culture negative; discontinue antibiotics. Morbid obesity Obesity hypoventilation syndrome Ambulatory dysfunction Generalized weakness Reports that he has been bedbound since November 2021; likely due to morbid obesity As nocturnal hypoxia; chronic CO2 retention Last admission; recommended to be discharged to SNF; wanted to go home. Came back in 3 days PlanPT OT, counseling done regarding morbid obesity, CPAP at night, History of acute DVT in left upper extremity Supratherapeutic INR INR improved; Warfarin resumed INR 2.2 Vitamin D deficiency Vitamin D level less than 7 On vitamin D 50,000 units weekly for 6 weeks Other conditions; Hypertensioncurrently metoprolol, torsemide and verapamil on hold Rheumatoid arthritison Plaquenil. Anemia; likely due to lower GI bleed. Has EGD done on August 31, 2022; had 2 duodenal polyp likely hyperplastic. Negative for malignancy. Colonoscopy done in September 01, 2022; 10 mm polyp removed; tubular adenoma. Repeat colonoscopy in 5 years. Hemoglobin currently stable Full code DVT prophylaxis warfarin dispositioncurrently hospitalized due to acute kidney injury on CKD; placement to SNF when available. Admission and Anticipated Discharge Date Admission Date: October 12, 2022 Subjective Follow-up for acute kidney injury on CKD, elevated eosinophil's, etc. Seen resting in bed, appears tired States he is having persistent epigastric pain and nausea, not tolerating food for few days now Reports having regular bowel movements No shortness of breath, cough, chest pain, fevers or chills No other symptoms Review of Systems Review of Systems: all noted and negative except for above Physical Exam Physical Exam: General- oriented x 3, not in distress, speaks in sentences with no effort or accessory muscle use Eyes- anicteric Neck- no JVD Lungs- clear breath sounds bilaterally, no rales/wheezes Heart- normal rate, regular rhythm; no murmurs Abdomen- normal bowel sounds, nondistended, soft, positive mild tenderness in the epigastric area Extremities-patient with lower extremity edema, no erythema/warmth, no calf tenderness Neuro- alert, oriented x 3; no gross focal neurologic deficits Skin- warm & dry Results & Data Results & Data ([facility]) Vital Signs (Past 12 Hours) Vital Signs Temp Pulse Pulse Resp BP BP Pulse Ox 10/19/22 16:04 36.7 C 95 H 20 124/86 90 10/19/22 14:56 96 H 10/19/22 11:28 37.2 C 92 H 16 124/75 92 10/19/22 10:19 88 10/19/22 07:00 10/19/22 07:55 10/19/22 07:45 36.7 C 95 H 16 124/78 95 10/19/22 04:31 36.8 C 95 H 20 136/85 92 O2 Del Method O2 Del Method O2 Flow Rate 10/19/22 16:04 Room Air 10/19/22 14:56 10/19/22 11:28 Nasal Cannula 4 10/19/22 10:19 10/19/22 07:00 Room Air 10/19/22 07:55 Nasal Cannula 3 10/19/22 07:45 Nasal Cannula 4 10/19/22 04:31 Nasal Cannula 4 all noted and reviewed including below
[2022-10-19] MEDS ORDERED: MICONAZOLE NITRATE POWDER 43 GM EXT PRN (16:19)
--- NOTE | 2022-10-19 16:58 | CT Scan Report ---
ABDOMEN AND PELVIS CT WITHOUT CONTRAST CT DOSE: 2469.26 mGy.cm HISTORY: epigastric abd pain, nausea TECHNIQUE: Multiaxial CT images of the abdomen and pelvis were performed without contrast. A dose lo wering technique was utilized adhering to the principles of ALARA. COMPARISON STUDY: Abdomen and pelvis CT 08/29/2022. FINDINGS: A few bibasilar linear densities suggestive of scarring or subsegmental atelectasis. No pne umoperitoneum. No pneumatosis. No suspicious lytic or blastic osseous lesions. Artifact within the ab domen and pelvis due to the patient's body abutting the gantry. Hepatic steatosis. Hyperdense materia l within the gallbladder may represent small stones and sludge. No gallbladder wall thickening. The u nenhanced pancreas, spleen, and adrenal glands are unremarkable. No retroperitoneal lymphadenopathy. Mild calcified plaque within the normal caliber abdominal aorta. No pelvic lymphadenopathy. No renal or ureteral stones. No hydronephrosis. Multiple bilateral hypodense and hyperdense renal lesions evan in stable. These are incompletely characterized on this noncontrast study but statistically represent hyperdense and simple cysts. Dominant hypodense lesion within the right kidney on image 246 measures 4 cm. The bladder is decompressed by a Starks catheter. Suboptimal evaluation for bowel pathology due to the lack of intravenous and oral contrast. However, there is no definite bowel wall thickening or obstruction. Colonic diverticulosis. No evidence for acute diverticulitis. Normal appendix. IMPRESSION: 1. No bowel wall thickening or obstruction. 2. Colonic diverticulosis. No evidence for acute diverticulitis. 3. Normal appendix. 4. No hydronephrosis. 5. Hepatic steatosis. 6. Hyperdense material within the gallbladder favors a combination of small stones and sludge. No gal lbladder wall thickening. 7. Additional findings as described above. ACT 112: Negative or not required by law. Electronically signed by: Abdirashid Garcia M.D. 10/19/2022 4:56 PM
[2022-10-19] MEDS: WARFARIN SOD 0.5 MG TAB PO SCH (17:08)
[2022-10-19] MEDS ORDERED: MAGNESIUM SULFATE / D5W 1 GM/100 ML BAG IV ONE (19:38)
[2022-10-19] MEDS: HYDROXYCHLOROQUINE SULFATE 200 MG TAB PO SCH (20:25)
[2022-10-19] MEDS: POTASSIUM CHLORIDE CRTAB 20 MEQ TABCR PO SCH (20:25)
[2022-10-19] MEDS: FAMOTIDINE 20 MG TAB PO SCH (20:25)
[2022-10-19] MEDS: SUCRALFATE 1 GM/10 ML UDC PO SCH (20:26)
[2022-10-19 20:51] LABS: Partial Thromboplastin Ratio 1.4
[2022-10-19 21:01] LABS: Troponin I High Sensitivity 10.6 pg/ml (0-20)
[2022-10-19 21:41] LABS: Potassium 4.1 mmol/L (3.5-5.1)
[2022-10-19 22:02] LABS: Magnesium 1.6 mg/dl (1.7-2.4)
[2022-10-20] MEDS: SUCRALFATE 1 GM/10 ML UDC PO SCH ×2 (08:07→21:10)
[2022-10-20] MEDS: POTASSIUM CHLORIDE CRTAB 20 MEQ TABCR PO SCH (08:07)
[2022-10-20] MEDS: FAMOTIDINE 20 MG TAB PO SCH ×2 (08:07→21:10)
[2022-10-20] MEDS: predniSONE 20 MG TAB PO SCH (08:08)
[2022-10-20] MEDS: TORSEMIDE 10 MG TAB PO SCH (08:08)
[2022-10-20] MEDS: ONDANSETRON INJ 2 MG/ML 2 ML VIAL IV PRN (08:16)
--- NOTE | 2022-10-20 09:07 | Gastroenterology Progress Note ---
Date of Service October 20, 2022 Assessment & Plan (1) Nausea & vomiting: (2) Epigastric abdominal pain: Plan: Patient is a 57 years old male with morbid obesity, DM II, RA, HTN, HLD, RUTH, chronic anemia, DVT on Warfarin, who is currently admitted for weakness, ambu latory dysfunction and for placement as is unable to care for him at home anymore. We are seeing him for n/v, and epigastric pain symptoms. Last abdominal imaging studies about [address] abdomen pelvis without contrast. At that point no acute obstructive, inflammatory or gallbladder pathology is noted. He has had EGD and colonoscopy done over the last month as well for anemia, with findings of duodenitis, tubular adenoma rectal polyp, hemorrhoids and diverticulosis. DDx: gastritis/duodenitis, gastroparesis, ? related to eosinophilia, depression CT abd/pelvis wo contrast (ATN) 10/19 showed small gallstones and sludge wo gallbladder inflammation. No other acute findings such as abd obstruction or inflammatory changes. He vomited this AM but attributed it to potassium pills' taste. He was able to tolerate dinner otherwise. Denies any more abd pain - Continue Protonix, Pepcid, Carafate at current doses. However if any concerns for drug induced allergy or AIH related to PPI,may consider stopping Protonix - Diet as tolerated - Symptomatic management with antiemetics prn - Consider gastric emptying study if n/v continues - GI to sign off; pls recall prn Admission and Anticipated Discharge Date Admission Date: October 12, 2022 Supervising Physician Co-Signing Physician Notes I saw and evaluated the patient, we were consulted for evaluation of nausea, the patient was admitted due to inability to care for himself at home as result of his morbid obesity. Patient did have a recent upper endoscopy and colonoscopy performed by my partner who found inflammatory changes within the small intestine of unclear etiology. Physical examination Morbidly obese male No right upper quadrant tenderness Impression: Patient with nausea, inflammatory changes noted in the duodenum on prior upper endoscopy. Would recommend addition of Carafate and monitoring over the next few days to see if the symptoms improve. Please call with any questions or concerns over the weekend Subjective Pt had nausea this morning, vomited after having potassium tabs. Last evening ate some chicken. Denies any more abd pain Review of Systems Review of Systems: All systems reviewed & are unremarkable except as noted in HPI & below Physical Exam Constitutional: + morbidly obese and cooperative Eyes: PERRL, conjunctivae normal, anicteric sclerae ENMT: external ear and nose normal, oropharynx normal Respiratory: normal respiratory effort, lungs clear to auscultation Cardiovascular: RRR, no murmur, no edema Gastrointestinal (Abdomen): normal bowel sounds, soft, nontender, no hepatosplenomegaly Skin: no rashes, warm and dry no jaundice Psychiatric: A+Ox3, euthymic affect Lymphatic: no lymphedema Results & Data ([facility]) Vital Signs (Past 12 Hours) Vital Signs Temp Pulse Pulse Pulse Resp BP BP 10/20/22 08:00 36.7 C 95 H 20 145/89 H 10/20/22 08:00 10/20/22 08:00 10/20/22 07:56 87 10/20/22 07:05 82 19 10/19/22 22:00 98 H 10/20/22 03:24 93 H 18 10/20/22 03:05 36.7 C 97 H 20 150/90 H 10/20/22 00:24 79 22 10/19/22 23:08 36.7 C 93 H 20 136/85 Pulse Ox O2 Del Method O2 Del Method O2 Flow Rate O2 Flow Rate 10/20/22 08:00 92 Nasal Cannula 3 10/20/22 08:00 Nasal Cannula 3 10/20/22 08:00 Nasal Cannula 3 10/20/22 07:56 10/20/22 07:05 92 13 10/19/22 22:00 10/20/22 03:24 88 L 10 10/20/22 03:05 93 BiPAP 9 10/20/22 00:24 89 L 7 10/19/22 23:08 92 Nasal Cannula 4
--- NOTE | 2022-10-20 10:02 | Nephrology Progress Note ---
Date of Service October 20, 2022 Assessment & Plan Admission and Anticipated Discharge Date Admission Date: October 12, 2022 Subjective Assessment & Plan (1) CHERYL (acute kidney injury): Plan: CHERYL on CKD 4, cause unclear.BP is lower/labile and also o2 likely caused another episode of ATN. His repeated episodes of ATN causing ARF frequently are related with these Sudden drop in o2, BP and higher HR. very prone to ATN. Creat goes up and down with no clear cause and pattern Low 4 and high 3's would be baseline for now torsemide 40 daily--without Diuretics his Urine output is really low. K is low so 40meq bid. -no indication for dialysis discussion at this time -continue to avoid nephrotoxins and to support bp reviewed Allergy note regarding Eosinophilia. ? About AIN. The random rise and fall in creat does not seem to fit the pattern we see in AIN--clinically seems more in line with Intermittent ATN. hard to r/o AIN without renal biopsy which with his body habitus is too risky. Creat trending down even before prednisone Started anyway so no plan for renal biopsy. has been Started on empiric prednisone by Allergy. (2) CKD (chronic kidney disease) stage 4, GFR 15-29 ml/min: Plan: rapidly progressive per report of baseline 1.4 in fall 2021 and worse in September 2022 than in 08/2022 Subjective Patient seen and examined at bedside. Blood pressure stable. On room Air now. Review of Systems Review of Systems: Grossly obese, bilateral pedal edema , more om the foot and hands Exam__morbidly obese. chest Clear. NO resp distress in rest CVS-_Distant RRR and No murmur Abd--soft non tender. ext--1 + edema. Results & Data ([facility]) Vital Signs (Past 12 Hours) Vital Signs Temp Pulse Pulse Pulse Resp BP BP 10/20/22 08:00 36.7 C 95 H 20 145/89 H 10/20/22 08:00 10/20/22 08:00 10/20/22 07:56 87 10/20/22 07:05 82 19 10/20/22 03:24 93 H 18 10/20/22 03:05 36.7 C 97 H 20 150/90 H 10/20/22 00:24 79 22 10/19/22 23:08 36.7 C 93 H 20 136/85 Pulse Ox O2 Del Method O2 Del Method O2 Flow Rate O2 Flow Rate 10/20/22 08:00 92 Nasal Cannula 3 10/20/22 08:00 Nasal Cannula 3 10/20/22 08:00 Nasal Cannula 3 10/20/22 07:56 10/20/22 07:05 92 13 10/20/22 03:24 88 L 10 10/20/22 03:05 93 BiPAP 9 10/20/22 00:24 89 L 7 10/19/22 23:08 92 Nasal Cannula 4
[2022-10-20 11:34] LABS: Calcium 9.8 mg/dl (8.5-10.1); Magnesium 1.8 mg/dl (1.7-2.4)
[2022-10-20 11:40] LABS: BUN Creatinine Ratio 13.5 (10-20); Creatinine Clr Calc Pharmacy 41.1 ml/min; Est GFR (African American) 20.8 ml/min
[2022-10-20] MEDS ORDERED: predniSONE 20 MG TAB PO SCH (11:45)
[2022-10-20 12:38] LABS: Basophils # (auto) 0.02 K/uL (0-0.2); Basophils % (auto) 0.4 %; Hematocrit (blood only) 31.1 % (42.0-52.0); Hemoglobin 9.6 g/dl (14.0-18.0); Immature Granulocytes # (auto) 0.03 K/uL (0.01-0.20); Immature Granulocytes % (auto) 0.6 %; Lymphocytes # (auto) 0.64 K/uL (1.2-3.4); Lymphocytes % (auto) 13.4 %; Mean Corpuscular Hemoglobin 28.1 pg (25.0-34.0); Mean Corpuscular Hgb Conc 30.9 g/dL (32.0-36.0); Mean Corpuscular Volume 90.9 fL (80.0-100.0); Mean Platelet Volume 10.3 fL (9.4-12.4); Monocytes # (auto) 0.32 K/uL (0.11-0.59); Monocytes % (auto) 6.7 %; Neutrophils # (auto) 3.76 K/uL (1.40-6.50); Neutrophils % (auto) 78.9 %; Platelet Count 249 K/uL (130-400); RDW Coefficient of Variation 17.3 % (11.5-14.5); Red Blood Count 3.42 M/uL (4.70-6.10); White Blood Count 4.77 K/ul (4.8-10.8)
--- NOTE | 2022-10-20 13:41 | Hospitalist Progress Note ---
Date of Service October 20, 2022 Assessment & Plan (1) CHERYL (acute kidney injury): (2) Epigastric abdominal pain: Plan: (1) CHERYL (acute kidney injury): (2) CKD (chronic kidney disease) stage 4, GFR 15-29 ml/min: Plan: per Dr. Hines's notes with addendum: Past medical history of hypertension, morbid obesity, ambulatory dysfunction, CKD, anemia, upper extremity DVT on warfarin, obesity hypoventilation syndrome presented from home due to generalized weakness. He was discharged 2 days prior to presentation to home. He was brought back as was unable to take care of him at home and wants SNF placement. Acute kidney injury on CKD: Hypotensive episodes intermittently since admission Was on verapamil, metoprolol and torsemide Creatinine up trended to 4.75 after admission; baseline is around 3. Initially given IV fluids. Received IV Lasix as per nephrology initially; now switched to oral torsemide. Renal ultrasoundno hydronephrosis Was oliguric initially for 2 days on admission; improvement in urine output since starting IV Lasix. 10/20 Creatinine 3.5 Currently on torsemide 40 mg p.o. daily Nephrology service on board Eosinophilia: Noted to have eosinophilia since October 06, 2022. Peripheral smear consult was done; remarkable for eosinophilia with reactive changes. Suspect that it may be related to allergy condition or drug allergy. 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 10/[address] shearer operator Dr[address] Ferrell Possible etiology: Hypereosinophilic syndrome, versus drug reaction from Protonix Serologic markers ordered Protonix discontinued, transition to famotidine twice daily Started on prednisone 60 mg p.o. Day 2 Eosinophils trending down epigastric improving Persistent nausea, epigastric pain Status post EGD last August 2022: Positive polyps CT abdomen pelvis ordered Hypereosinophilia contributing? Prednisone started As needed meds ordered for dyspepsia -- resolving Gram-positive cocci in clusters; PCR positive for staph epidermis -Was initially started on daptomycin. -Repeat blood culture negative; discontinue antibiotics. Morbid obesity Obesity hypoventilation syndrome Ambulatory dysfunction Generalized weakness Reports that he has been bedbound since November 2021; likely due to morbid obesity As nocturnal hypoxia; chronic CO2 retention Last admission; recommended to be discharged to SNF; wanted to go home. Came back in 3 days PlanPT OT, counseling done regarding morbid obesity, CPAP at night, History of acute DVT in left upper extremity Supratherapeutic INR INR improved; Warfarin resumed INR 2.2 Vitamin D deficiency Vitamin D level less than 7 On vitamin D 50,000 units weekly for 6 weeks Other conditions; Hypertensioncurrently metoprolol, torsemide and verapamil on hold Rheumatoid arthritison Plaquenil. Anemia; likely due to lower GI bleed. Has EGD done on August 31, 2022; had 2 duodenal polyp likely hyperplastic. Negative for malignancy. Colonoscopy done in September 01, 2022; 10 mm polyp removed; tubular adenoma. Repeat colonoscopy in 5 years. Hemoglobin currently stable Full code DVT prophylaxis warfarin dispositioncurrently hospitalized due to acute kidney injury on CKD; placement to SNF when available. Admission and Anticipated Discharge Date Admission Date: October 12, 2022 Subjective ff up for acute kidney injury, hypereosinophilia, etc seen resting in bed, comfortable in good spirits states he feels better today epigastric pain resolved, able to tolerate diet had nausea this AM, resolved no chest pain, dyspnea, palpitations, dizziness no other symptoms Review of Systems Review of Systems: all noted and negative except for above Physical Exam Physical Exam: General- oriented x 3, not in distress, speaks in sentences with no effort or accessory muscle use Eyes- anicteric Neck- no JVD Lungs- clear BS bilaterally, no rales/wheezes Heart- normal rate, regular rhythm; no murmurs Abdomen- normal bowel sounds, nondistended, soft, nontender Extremities- no pretibial edema, no calf tenderness Neuro- alert, oriented x 3; no gross focal neurologic deficits Skin- warm & dry Results & Data Results & Data ([facility]) Vital Signs (Past 12 Hours) Vital Signs Temp Pulse Pulse Resp BP BP Pulse Ox 10/20/22 11:33 36.6 C 96 H 20 144/94 H 93 10/20/22 08:00 36.7 C 95 H 20 145/89 H 92 10/20/22 08:00 10/20/22 08:00 10/20/22 07:56 87 10/20/22 07:05 82 19 92 10/20/22 03:24 93 H 18 88 L 10/20/22 03:05 36.7 C 97 H 20 150/90 H 93 O2 Del Method O2 Del Method O2 Flow Rate O2 Flow Rate 10/20/22 11:33 Nasal Cannula 3 01/27/23 08:00 Nasal Cannula 3 10/20/22 08:00 Nasal Cannula 3 10/20/22 08:00 Nasal Cannula 3 10/20/22 07:56 10/20/22 07:05 13 10/20/22 03:24 10 10/20/22 03:05 BiPAP 9 all noted and reviewed including below
--- NOTE | 2022-10-20 15:16 | Electrocardiogram Report ---
Test Reason : Blood Pressure : / mmHG Vent. Rate : 097 BPM Atrial Rate : 097 BPM P-R Int : 164 ms QRS Dur : 130 ms QT Int : 400 ms P-R-T Axes : 040 -36 046 degrees QTc Int : 508 ms Normal sinus rhythm Left axis deviation Non-specific intra-ventricular conduction block Abnormal ECG Confirmed by King Cedeño ([id number]) on 10/20/2022 3:15:57 PM Referred By: REFERRED SELF Confirmed By:Antoni Cedeño
[2022-10-20] MEDS: WARFARIN SOD 0.5 MG TAB PO SCH (16:49)
[2022-10-20 17:29] LABS: INR 2.1 (0.9-1.1); Prothrombin Time 21.2 Seconds (9.0-12.0)
[2022-10-20] MEDS: HYDROXYCHLOROQUINE SULFATE 200 MG TAB PO SCH (21:10)
[2022-10-21] MEDS ORDERED: MAGNESIUM SULFATE / D5W 1 GM/100 ML BAG IV ONE (03:33)
[2022-10-21 03:47] LABS: Basophils # (auto) 0.01 K/uL (0-0.2); Basophils % (auto) 0.2 %; Eosinophils # (auto) 0.01 K/uL (0-0.50); Eosinophils % (auto) 0.2 %; Hematocrit (blood only) 29.9 % (42.0-52.0); Hemoglobin 9.2 g/dl (14.0-18.0); Immature Granulocytes # (auto) 0.03 K/uL (0.01-0.20); Immature Granulocytes % (auto) 0.6 %; Lymphocytes # (auto) 0.84 K/uL (1.2-3.4); Lymphocytes % (auto) 16.6 %; Mean Corpuscular Hemoglobin 28.4 pg (25.0-34.0); Mean Corpuscular Hgb Conc 30.8 g/dL (32.0-36.0); Mean Corpuscular Volume 92.3 fL (80.0-100.0); Mean Platelet Volume 9.4 fL (9.4-12.4); Monocytes % (auto) 9.9 %; Neutrophils # (auto) 3.68 K/uL (1.40-6.50); Neutrophils % (auto) 72.5 %; Platelet Count 240 K/uL (130-400); RDW Coefficient of Variation 17.7 % (11.5-14.5); RDW Standard Deviation 60.4 fL (36.4-46.3); Red Blood Count 3.24 M/uL (4.70-6.10); White Blood Count 5.07 K/ul (4.8-10.8)
[2022-10-21 03:58] LABS: INR 1.9 (0.9-1.1); Partial Thromboplastin Ratio 1.2; Partial Thromboplastin Time 34.2 Seconds (21.0-31.0); Prothrombin Time 19.9 Seconds (9.0-12.0)
[2022-10-21 04:22] LABS: Potassium 3.8 mmol/L (3.5-5.1)
[2022-10-21] MEDS ORDERED: WARFARIN SOD 1 MG TAB PO STA (04:25)
[2022-10-21 04:27] LABS: BUN Creatinine Ratio 14.1 (10-20); Creatinine Clr Calc Pharmacy 40.3 ml/min; Est GFR (African American) 20.4 ml/min; Est GFR (Non-African American) 17.6 ml/min
[2022-10-21] MEDS: FAMOTIDINE 20 MG TAB PO SCH ×2 (08:46→19:24)
[2022-10-21] MEDS: predniSONE 20 MG TAB PO SCH (08:46)
[2022-10-21] MEDS: SUCRALFATE 1 GM/10 ML UDC PO SCH ×2 (08:47→19:24)
[2022-10-21] MEDS: TORSEMIDE 10 MG TAB PO SCH (08:47)
--- NOTE | 2022-10-21 11:16 | Nephrology Progress Note ---
Date of Service October 21, 2022 Assessment & Plan (1) CKD (chronic kidney disease) stage 4, GFR 15-29 ml/min: Plan: rapidly progressive per report of baseline 1.4 in fall 2021 and worse in September 2022 than in 08/2022 > would call his baseline currently in the mid 3s to mid 4s. hx of repeated CHERYL / ATN episodes related to hypoxia, hx of labile BP, high HR. very prone to ATN, very sensitive to diuretics. -cont trial of 40 torsemide daily and K suppls ?AIN among other ddxs d/t eosinophilia per allergy eval. not a renal bx candidate d/t body habitus/ clotting/bleeding issues. AIN usually dx'd w/ renal bx; on empiric prednisone for now per allergy and Joint pain improved some. creat trends so far not correlating w/ steroids. (2) CHERYL (acute kidney injury): Admission and Anticipated Discharge Date Admission Date: October 12, 2022 Subjective feels prednisone is helping him; no sob, no edema Review of Systems Review of Systems: All systems reviewed & are unremarkable except as noted in Subjective Physical Exam Constitutional: well developed, well nourished, + morbidly obese and + physical limitations; no acute distress Eyes: EOM intact bilaterally ENMT: Ears: no external ear abnormality Nose: no external nose abnormality Mouth: + dry oral mucous membranes Neck: no nuchal rigidity Respiratory: normal respiratory effort Auscultation: + diminished lung sounds Cardiovascular: Rate/Rhythm: regular rate and regular rhythm Extremities: + edema (3+ pedal; trace dependent) Gastrointestinal (Abdomen): Inspection/Auscultation: normal bowel sounds Percussion/Palpation: abdomen soft; abdomen nontender Musculoskeletal: Extremities: + abnormal strength Skin: no rashes, warm and dry Results & Data ([facility]) Vital Signs (Past 12 Hours) Vital Signs Temp Pulse Pulse Resp BP Pulse Ox O2 Del Method 10/21/22 07:44 36.9 C 93 H 16 136/81 94 Nasal Cannula 10/21/22 07:30 93 H 10/21/22 03:12 36.3 C L 91 H 16 111/75 96 BiPAP 10/21/22 04:28 96 Nasal Cannula 10/21/22 02:42 68 18 94 O2 Flow Rate 10/21/22 07:44 4 10/21/22 07:30 10/21/22 03:12 10/21/22 04:28 4 10/21/22 02:42 3 Laboratory Results 10/21/22 03:37 10/21/22 03:37
--- NOTE | 2022-10-21 15:45 | Hospitalist Progress Note ---
Date of Service October 21, 2022 Assessment & Plan (1) CHERYL (acute kidney injury): (2) Epigastric abdominal pain: Plan: (1) CHERYL (acute kidney injury): (2) CKD (chronic kidney disease) stage 4, GFR 15-29 ml/min: Plan: per Dr. Hines's notes with addendum: Past medical history of hypertension, morbid obesity, ambulatory dysfunction, CKD, anemia, upper extremity DVT on warfarin, obesity hypoventilation syndrome presented from home due to generalized weakness. He was discharged 2 days prior to presentation to home. He was brought back as was unable to take care of him at home and wants SNF placement. Acute kidney injury on CKD: Hypotensive episodes intermittently since admission Was on verapamil, metoprolol and torsemide Creatinine up trended to 4.75 after admission; baseline is around 3. Initially given IV fluids. Received IV Lasix as per nephrology initially; now switched to oral torsemide. Renal ultrasoundno hydronephrosis Was oliguric initially for 2 days on admission; improvement in urine output since starting IV Lasix. 10/21 Creatinine 3.6 Currently on torsemide 40 mg p.o. daily Nephrology service on board Eosinophilia: Noted to have eosinophilia since October 06, 2022. Peripheral smear consult was done; remarkable for eosinophilia with reactive changes. Suspect that it may be related to allergy condition or drug allergy. 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 10/[address] parts counterperson Dr. Ferrell Possible etiology: Hypereosinophilic syndrome, versus drug reaction from Protonix Serologic markers ordered Protonix discontinued, transition to famotidine twice daily Started on prednisone 60 mg p.o. Day 3 Taper prednisone by 10 mg every 5 to 7 days, until finished Eosinophils trending down Persistent nausea, epigastric pain Status post EGD last August 2022: Positive polyps CT abdomen pelvis ordered Hypereosinophilia contributing? Prednisone started As needed meds ordered for dyspepsia -- resolving Gram-positive cocci in clusters; PCR positive for staph epidermis -Was initially started on daptomycin. -Repeat blood culture negative; discontinue antibiotics. Morbid obesity Obesity hypoventilation syndrome Ambulatory dysfunction Generalized weakness Reports that he has been bedbound since November 2021; likely due to morbid obesity As nocturnal hypoxia; chronic CO2 retention Last admission; recommended to be discharged to SNF; wanted to go home. Came back in 3 days PlanPT OT, counseling done regarding morbid obesity, CPAP at night, History of acute DVT in left upper extremity Supratherapeutic INR INR 1.9 Continue Coumadin Vitamin D deficiency Vitamin D level less than 7 On vitamin D 50,000 units weekly for 6 weeks Other conditions; Hypertensioncurrently metoprolol, torsemide and verapamil on hold Rheumatoid arthritison Plaquenil. Anemia; likely due to lower GI bleed. Has EGD done on August 31, 2022; had 2 duodenal polyp likely hyperplastic. Negative for malignancy. Colonoscopy done in September 01, 2022; 10 mm polyp removed; tubular adenoma. Repeat colonoscopy in 5 years. Hemoglobin currently stable Full code DVT prophylaxis warfarin dispositioncurrently hospitalized due to acute kidney injury on CKD; placement to SNF when available. Admission and Anticipated Discharge Date Admission Date: October 12, 2022 Subjective Follow-up for acute kidney injury, hypereosinophilic syndrome, etc. Seen resting in bed, sitting up, listening to music States he feels better overall Abdominal pain resolved, states he is able to tolerate food normally no No shortness of breath, cough, chest pain, leg pain No fevers or chills No other symptoms Review of Systems Review of Systems: all noted and negative except for above Physical Exam Physical Exam: General- oriented x 3, not in distress, speaks in sentences with no effort or accessory muscle use Eyes- anicteric Neck- no JVD Lungs- clear BS bilaterally, no rales/wheezes Heart- normal rate, regular rhythm; no murmurs Abdomen- normal bowel sounds, nondistended, soft, nontender Extremities-grade 1 lower extremity edema, no calf tenderness Neuro- alert, oriented x 3; no gross focal neurologic deficits Skin- warm & dry Results & Data Results & Data ([facility]) Vital Signs (Past 12 Hours) Vital Signs Temp Pulse Pulse Resp BP Pulse Ox O2 Del Method 10/21/22 11:56 Nasal Cannula 10/21/22 11:24 37.1 C 94 H 16 154/91 H 95 Nasal Cannula 10/21/22 07:44 36.9 C 93 H 16 136/81 94 Nasal Cannula 10/21/22 07:30 93 H 10/21/22 04:28 96 Nasal Cannula O2 Flow Rate 10/21/22 11:56 4 10/21/22 11:24 4 10/21/22 07:44 4 10/21/22 07:30 10/21/22 04:28 4 all noted and reviewed including below
[2022-10-21] MEDS: ACETAMINOPHEN 325 MG TAB PO PRN (19:23)
[2022-10-21] MEDS: HYDROXYCHLOROQUINE SULFATE 200 MG TAB PO SCH (19:24)
[2022-10-22 08:52] LABS: INR 1.8 (0.9-1.1)
[2022-10-22] MEDS: TORSEMIDE 10 MG TAB PO SCH (09:24)
[2022-10-22] MEDS: FAMOTIDINE 20 MG TAB PO SCH ×2 (09:24→22:11)
[2022-10-22] MEDS: predniSONE 20 MG TAB PO SCH (09:25)
[2022-10-22] MEDS: SUCRALFATE 1 GM/10 ML UDC PO SCH ×2 (09:25→22:11)
[2022-10-22] MEDS: LIDOCAINE 5% 1 PATCH TD SCH (11:42)
--- NOTE | 2022-10-22 12:08 | XRay Report ---
XR shoulder LT min 2V routine CLINICAL HISTORY: Left shoulder pain. COMPARISON: None FINDINGS: Alignment of the left shoulder is anatomic. There is no acute fracture. There is no osseou s lesion. 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 IMPRESSION: 1. No acute fracture or dislocation within the left shoulder. 2. Moderate degenerative changes within the left shoulder. ACT 112: Negative or not required by law. Electronically signed by: Shan Pedroza M.D. 10/22/2022 12:07 PM
--- NOTE | 2022-10-22 15:03 | Hospitalist Progress Note ---
Date of Service October 22, 2022 Assessment & Plan (1) CHERYL (acute kidney injury): (2) Epigastric abdominal pain: Plan: (1) CHERYL (acute kidney injury): (2) CKD (chronic kidney disease) stage 4, GFR 15-29 ml/min: Plan: per Dr. Hines's notes with addendum: Past medical history of hypertension, morbid obesity, ambulatory dysfunction, CKD, anemia, upper extremity DVT on warfarin, obesity hypoventilation syndrome presented from home due to generalized weakness. He was discharged 2 days prior to presentation to home. He was brought back as was unable to take care of him at home and wants SNF placement. Acute kidney injury on CKD: Hypotensive episodes intermittently since admission Was on verapamil, metoprolol and torsemide Creatinine up trended to 4.75 after admission; baseline is around 3. Initially given IV fluids. Received IV Lasix as per nephrology initially; now switched to oral torsemide. Renal ultrasoundno hydronephrosis Was oliguric initially for 2 days on admission; improvement in urine output since starting IV Lasix. 10/21 Creatinine 3.6 Currently on torsemide 40 mg p.o. daily Nephrology service on board Eosinophilia: Noted to have eosinophilia since October 06, 2022. Peripheral smear consult was done; remarkable for eosinophilia with reactive changes. Suspect that it may be related to allergy condition or drug allergy. 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 10/[address] offc spec Dr. Ferrell Possible etiology: Hypereosinophilic syndrome, versus drug reaction from Protonix Serologic markers ordered Protonix discontinued, transition to famotidine twice daily Started on prednisone 60 mg p.o. Day 3 Taper prednisone by 10 mg every 5 to 7 days, until finished Eosinophils trending down Persistent nausea, epigastric pain Status post EGD last August 2022: Positive polyps CT abdomen pelvis ordered Hypereosinophilia contributing? Prednisone started As needed meds ordered for dyspepsia -- resolving Gram-positive cocci in clusters; PCR positive for staph epidermis -Was initially started on daptomycin. -Repeat blood culture negative; discontinue antibiotics. Morbid obesity Obesity hypoventilation syndrome Ambulatory dysfunction Generalized weakness Reports that he has been bedbound since November 2021; likely due to morbid obesity As nocturnal hypoxia; chronic CO2 retention Last admission; recommended to be discharged to SNF; wanted to go home. Came back in 3 days PlanPT OT, counseling done regarding morbid obesity, CPAP at night, History of acute DVT in left upper extremity Supratherapeutic INR INR 1.8 Coumadin 2.0 mg one dose today Vitamin D deficiency Vitamin D level less than 7 On vitamin D 50,000 units weekly for 6 weeks Other conditions; Hypertensioncurrently metoprolol, torsemide and verapamil on hold Rheumatoid arthritison Plaquenil. Anemia; likely due to lower GI bleed. Has EGD done on August 31, 2022; had 2 duodenal polyp likely hyperplastic. Negative for malignancy. Colonoscopy done in September 01, 2022; 10 mm polyp removed; tubular adenoma. Repeat colonoscopy in 5 years. Hemoglobin currently stable Full code DVT prophylaxis warfarin dispositioncurrently hospitalized due to acute kidney injury on CKD; placement to SNF when available. Admission and Anticipated Discharge Date Admission Date: October 12, 2022 Subjective ff up for CHERYL, etc seen resting in bed, not in distress reports L upper arm/shoulder pain no chest pain, dyspnea, palpitations, dizziness no abdominal pain, tolerating diet well no other symptoms Review of Systems Review of Systems: all noted and negative except for above Physical Exam Physical Exam: General- oriented x 3, not in distress, speaks in sentences with no effort or accessory muscle use Eyes- anicteric Neck- no JVD Lungs- clear BS bilaterally, no crackles Heart- normal rate, regular rhythm; no murmurs Abdomen- normal bowel sounds, nondistended, soft, no tenderness Extremities- mild lower ext edema, no calf tenderness L shoulder- mild tenderness, no erythema/edema/warmth Neuro- alert, oriented x 3; no gross focal neurologic deficits Skin- warm & dry Results & Data Results & Data ([facility]) Vital Signs (Past 12 Hours) Vital Signs Temp Pulse Pulse Resp BP Pulse Ox O2 Del Method 10/22/22 12:11 36.6 C 85 16 147/98 H 95 Nasal Cannula 10/22/22 09:00 Nasal Cannula 10/22/22 08:00 94 H 10/22/22 08:07 36.7 C 87 16 151/87 H 94 Nasal Cannula O2 Flow Rate 10/22/22 12:11 4 10/22/22 09:00 4 10/22/22 08:00 10/22/22 08:07 4 all noted and reviewed including below
[2022-10-22] MEDS ORDERED: WARFARIN SOD 2 MG TAB PO ONE (16:00)
[2022-10-22] MEDS ORDERED: WARFARIN SOD 0.5 MG TAB PO SCH (16:00)
[2022-10-22] MEDS ORDERED: WARFARIN SOD 0.5 MG TAB PO ONE (16:00)
[2022-10-22] MEDS: HYDROXYCHLOROQUINE SULFATE 200 MG TAB PO SCH (22:11)
[2022-10-23] MEDS: TORSEMIDE 10 MG TAB PO SCH (09:04)
[2022-10-23] MEDS: FAMOTIDINE 20 MG TAB PO SCH ×2 (09:04→21:07)
[2022-10-23] MEDS: LIDOCAINE 5% 1 PATCH TD SCH (09:04)
[2022-10-23] MEDS: SUCRALFATE 1 GM/10 ML UDC PO SCH ×2 (09:05→21:07)
[2022-10-23] MEDS: predniSONE 20 MG TAB PO SCH (09:05)
--- NOTE | 2022-10-23 13:29 | Hospitalist Progress Note ---
Date of Service October 23, 2022 Assessment & Plan (1) CHERYL (acute kidney injury): (2) Epigastric abdominal pain: Plan: (1) CHERYL (acute kidney injury): (2) CKD (chronic kidney disease) stage 4, GFR 15-29 ml/min: Plan: per Dr. Hines's notes with addendum: Past medical history of hypertension, morbid obesity, ambulatory dysfunction, CKD, anemia, upper extremity DVT on warfarin, obesity hypoventilation syndrome presented from home due to generalized weakness. He was discharged 2 days prior to presentation to home. He was brought back as was unable to take care of him at home and wants SNF placement. Acute kidney injury on CKD: Hypotensive episodes intermittently since admission Was on verapamil, metoprolol and torsemide Creatinine up trended to 4.75 after admission; baseline is around 3. Initially given IV fluids. Received IV Lasix as per nephrology initially; now switched to oral torsemide. Renal ultrasoundno hydronephrosis Was oliguric initially for 2 days on admission; improvement in urine output since starting IV Lasix. 10/23 Creatinine 3.6 Currently on torsemide 40 mg p.o. daily Nephrology service on board Eosinophilia: Noted to have eosinophilia since October 06, 2022. Peripheral smear consult was done; remarkable for eosinophilia with reactive changes. Suspect that it may be related to allergy condition or drug allergy. 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 10/23 Discussed with shoulder boner Dr. Ferrell Possible etiology: Hypereosinophilic syndrome, versus drug reaction from Protonix Serologic markers ordered Protonix discontinued, transition to famotidine twice daily Started on prednisone 60 mg p.o. Day 4 Taper prednisone by 10 mg every 5 to 7 days, until finished Eosinophils trending down Persistent nausea, epigastric pain Status post EGD last August 2022: Positive polyps CT abdomen pelvis ordered Hypereosinophilia contributing? Prednisone started As needed meds ordered for dyspepsia -- resolving Gram-positive cocci in clusters; PCR positive for staph epidermis -Was initially started on daptomycin. -Repeat blood culture negative; discontinue antibiotics. Morbid obesity Obesity hypoventilation syndrome Ambulatory dysfunction Generalized weakness Reports that he has been bedbound since November 2021; likely due to morbid obesity As nocturnal hypoxia; chronic CO2 retention Last admission; recommended to be discharged to SNF; wanted to go home. Came back in 3 days PlanPT OT, counseling done regarding morbid obesity, CPAP at night, History of acute DVT in left upper extremity Supratherapeutic INR INR pending Coumadin 2.0 mg one dose today Vitamin D deficiency Vitamin D level less than 7 On vitamin D 50,000 units weekly for 6 weeks Other conditions; Hypertensioncurrently metoprolol, torsemide and verapamil on hold Rheumatoid arthritison Plaquenil. Anemia; likely due to lower GI bleed. Has EGD done on August 31, 2022; had 2 duodenal polyp likely hyperplastic. Negative for malignancy. Colonoscopy done in September 01, 2022; 10 mm polyp removed; tubular adenoma. Repeat colonoscopy in 5 years. Hemoglobin currently stable Full code DVT prophylaxis warfarin disposition: Patient prefers to return home with physical therapy on Sunday Admission and Anticipated Discharge Date Admission Date: October 12, 2022 Subjective Follow-up for acute kidney injury, hypereosinophilic syndrome, etc. Seen resting in bed, awake, comfortable, not in distress, in good spirits States he continues to feel good overall No abdominal pain, tolerating diet well States he is able to move around better, able to eat independently, etc. No other symptoms Review of Systems Review of Systems: all noted and negative except for above Physical Exam Physical Exam: General- oriented x 3, not in distress, speaks in sentences with no effort or accessory muscle use Eyes- anicteric Neck- no JVD Lungs- clear BS bilaterally, no rales/wheezes Heart- normal rate, regular rhythm; no murmurs Abdomen- normal bowel sounds, nondistended, soft, nontender Extremities- gr 1 lower extremity edema, no calf tenderness Neuro- alert, oriented x 3; no gross focal neurologic deficits Skin- warm & dry Results & Data Results & Data ([facility]) Vital Signs (Past 12 Hours) Vital Signs Temp Pulse Pulse Resp BP Pulse Ox O2 Del Method 10/23/22 12:58 Nasal Cannula 10/23/22 07:59 36.5 C 85 20 149/95 H 97 Nasal Cannula 10/23/22 07:06 80 10/23/22 03:37 36.4 C L 82 20 153/93 H 91 Nasal Cannula O2 Flow Rate 10/23/22 12:58 4 10/23/22 07:59 4 10/23/22 07:06 10/23/22 03:37 4 all noted and reviewed including below
[2022-10-23 17:01] LABS: INR 1.6 (0.9-1.1); Prothrombin Time 16.8 Seconds (9.0-12.0)
[2022-10-23] MEDS ORDERED: WARFARIN SOD 3 MG TAB PO ONE (17:30)
[2022-10-23] MEDS: DICLOFENAC SOD 1% GEL 100 GM TUBE EXT PRN (21:07)
[2022-10-23] MEDS: HEPARIN SOD 5,000 UNIT/0.5 ML VIAL SQ SCH (21:07)
[2022-10-23] MEDS: HYDROXYCHLOROQUINE SULFATE 200 MG TAB PO SCH (21:07)
[2022-10-24 06:27] LABS: BUN Creatinine Ratio 18.9 (10-20); Calcium 9.6 mg/dl (8.5-10.1); Creatinine Clr Calc Pharmacy 51.8 ml/min; Est GFR (African American) 27.8 ml/min; Potassium 3.9 mmol/L (3.5-5.1)
[2022-10-24] MEDS: HEPARIN SOD 5,000 UNIT/0.5 ML VIAL SQ SCH ×3 (06:32→21:19)
[2022-10-24] MEDS: LIDOCAINE 5% 1 PATCH TD SCH (07:44)
[2022-10-24] MEDS: predniSONE 20 MG TAB PO SCH (07:57)
[2022-10-24] MEDS: SUCRALFATE 1 GM/10 ML UDC PO SCH ×2 (07:57→21:16)
[2022-10-24] MEDS: TORSEMIDE 10 MG TAB PO SCH (07:57)
[2022-10-24] MEDS: DICLOFENAC SOD 1% GEL 100 GM TUBE EXT PRN ×2 (07:58→21:25)
[2022-10-24] MEDS: FAMOTIDINE 20 MG TAB PO SCH ×2 (07:58→21:16)
--- NOTE | 2022-10-24 10:22 | Nephrology Progress Note ---
Date of Service October 24, 2022 Assessment & Plan (1) CKD (chronic kidney disease) stage 4, GFR 15-29 ml/min: Plan: rapidly progressive per report of baseline 1.4 in fall 2021 and worse in September 2022 than in 08/2022 > would call his baseline currently in the mid 3s to mid 4s, though again significant lability past few months and in past few days marked improvement. renal function is improving on prednisone; no eos on urine stuies hx of repeated CHERYL / ATN episodes related to hypoxia, hx of labile BP, high HR. very prone to ATN, very sensitive to diuretics. >lowered torsemide dose to 20 mg daily -for now no K supplement needed -continue crenshaw for now unless there is an adequate plan for cleaning this pt after spontaneous voiding ?AIN among other ddxs d/t eosinophilia per allergy eval. not a renal bx candidate d/t body habitus/ clotting/bleeding issues. AIN usually dx'd w/ renal bx; on empiric prednisone for now per allergy and Joint pain improved some. creat has improved w/ steroids and allowed some diuresis. Admission and Anticipated Discharge Date Admission Date: October 12, 2022 Subjective tolerating steroids well and renal function improving as is volume status; pt wondering about removing crenshaw. pt per RN feeds self intermittently at best. he c/o ongoing shoulder pain Review of Systems Review of Systems: All systems reviewed & are unremarkable except as noted in Subjective Physical Exam Constitutional: well developed, well nourished, + morbidly obese and + physical limitations; no acute distress Eyes: EOM intact bilaterally ENMT: Ears: no external ear abnormality Nose: no external nose abnormality Mouth: + dry oral mucous membranes Neck: no nuchal rigidity Respiratory: normal respiratory effort Auscultation: + diminished lung sounds Cardiovascular: Rate/Rhythm: regular rate and regular rhythm Extremities: + edema (trace) Gastrointestinal (Abdomen): Inspection/Auscultation: normal bowel sounds Percussion/Palpation: abdomen soft; abdomen nontender Musculoskeletal: Extremities: + abnormal strength Skin: no rashes, warm and dry Neurologic: [place], fluent speech , no tremor Genitourinary: crenshaw w/ ample urine Results & Data ([facility]) Vital Signs (Past 12 Hours) Vital Signs Temp Pulse Pulse Resp BP Pulse Ox O2 Del Method 10/24/22 07:43 36.4 C L 90 21 146/108 H 93 Nasal Cannula 10/24/22 07:06 83 10/24/22 03:03 36.4 C L 84 16 152/93 H 90 Nasal Cannula 10/23/22 22:45 36.5 C 96 H 20 157/99 H 95 Nasal Cannula 10/23/22 23:11 95 H 10/23/22 22:52 97 H 145/91 H O2 Flow Rate 10/24/22 07:43 3 10/24/22 07:06 10/24/22 03:03 4 10/23/22 22:45 4 10/23/22 23:11 10/23/22 22:52 Laboratory Results 10/21/22 03:37 10/24/22 05:40
[2022-10-24] MEDS: METOPROLOL TARTRATE 25 MG TAB PO SCH ×2 (13:06→21:17)
--- NOTE | 2022-10-24 14:46 | Hospitalist Progress Note ---
Date of Service October 24, 2022 Assessment & Plan (1) CHERYL (acute kidney injury): (2) Epigastric abdominal pain: Plan: (1) CHERYL (acute kidney injury): (2) CKD (chronic kidney disease) stage 4, GFR 15-29 ml/min: Plan: per Dr. Hines's notes with addendum: Past medical history of hypertension, morbid obesity, ambulatory dysfunction, CKD, anemia, upper extremity DVT on warfarin, obesity hypoventilation syndrome presented from home due to generalized weakness. He was discharged 2 days prior to presentation to home. He was brought back as was unable to take care of him at home and wants SNF placement. Acute kidney injury on CKD: Hypotensive episodes intermittently since admission Was on verapamil, metoprolol and torsemide Creatinine up trended to 4.75 after admission; baseline is around 3. Initially given IV fluids. Received IV Lasix as per nephrology initially; now switched to oral torsemide. Renal ultrasoundno hydronephrosis Was oliguric initially for 2 days on admission; improvement in urine output since starting IV Lasix. 10/24 Creatinine improving from 4, now 2.6 (baseline in the 3s as per patient) Torsemide decreased from 40 to 20 mg p.o. daily Nephrology service on board Eosinophilia: Noted to have eosinophilia since October 06, 2022. Peripheral smear consult was done; remarkable for eosinophilia with reactive changes. Suspect that it may be related to allergy condition or drug allergy. 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 Discussed with industrial engineering intern Dr. Ferrell Possible etiology: Hypereosinophilic syndrome, versus drug reaction from Protonix Serologic markers ordered Protonix discontinued, transition to famotidine twice daily Started on prednisone 60 mg p.o. Day 5 Decrease to 50mg po daily starting tomorrow Taper prednisone by 10 mg every 5 days, until finished Eosinophils now 0 Persistent nausea, epigastric pain Status post EGD last August 2022: Positive polyps CT abdomen pelvis ordered Hypereosinophilia contributing? Prednisone started As needed meds ordered for dyspepsia -- resolved Gram-positive cocci in clusters; PCR positive for staph epidermis -Was initially started on daptomycin. -Repeat blood culture negative; discontinue antibiotics. Morbid obesity Obesity hypoventilation syndrome Ambulatory dysfunction Generalized weakness Reports that he has been bedbound since November 2021; likely due to morbid obesity As nocturnal hypoxia; chronic CO2 retention Last admission; recommended to be discharged to SNF; wanted to go home. Came back in 3 days --patient prefers to return home, at bedside agrees states he can do PT/OT at home History of acute DVT in left upper extremity Supratherapeutic INR INR pending Coumadin daily Vitamin D deficiency Vitamin D level less than 7 On vitamin D 50,000 units weekly for 6 weeks Other conditions; Hypertensioncontinue metoprolol, torsemide, verapamil Rheumatoid arthritison Plaquenil. Anemia; likely due to lower GI bleed. Has EGD done on August 31, 2022; had 2 duodenal polyp likely hyperplastic. Negative for malignancy. Colonoscopy done in September 01, 2022; 10 mm polyp removed; tubular adenoma. Repeat colonoscopy in 5 years. Hemoglobin currently stable Full code DVT prophylaxis warfarin disposition: Patient prefers to return home with physical therapy Admission and Anticipated Discharge Date Admission Date: October 12, 2022 Subjective ff up for acute kidney injury, etc seen resting in bed, comfortable 2 L NC states he feels fine overall has some pain L lower ext, distal lateral aspect no foot pain no chest pain, dyspnea, palpitations, dizziness appetite is good, tolerating diet well no other symptoms Review of Systems Review of Systems: all noted and negative except for above Physical Exam Physical Exam: General- oriented x 3, not in distress, speaks in sentences with no effort or accessory muscle use Eyes- anicteric Neck- no JVD Lungs- clear BS bilaterally, no crackles/wheezing Heart- normal rate, regular rhythm; no murmurs Abdomen- normal bowel sounds, nondistended, soft, no tenderness Extremities- mild lower ext edema, no calf tenderness (+) moderate tenderness area above the ankle no erythema/warmth Neuro- alert, oriented x 3; no gross focal neurologic deficits Skin- warm & dry Results & Data Results & Data ([facility]) Vital Signs (Past 12 Hours) Vital Signs Temp Pulse Pulse Resp BP Pulse Ox O2 Del Method 10/24/22 12:00 36.7 C 70 21 164/108 H 95 Nasal Cannula 10/24/22 07:50 Nasal Cannula 10/24/22 07:43 36.4 C L 90 21 146/108 H 93 Nasal Cannula 10/24/22 07:06 83 10/24/22 03:03 36.4 C L 84 16 152/93 H 90 Nasal Cannula O2 Flow Rate 10/24/22 12:00 4 10/24/22 07:50 4 10/24/22 07:43 3 10/24/22 07:06 10/24/22 03:03 4 all noted and reviewed including below
[2022-10-24 15:54] LABS: INR 1.8 (0.9-1.1); Prothrombin Time 18.2 Seconds (9.0-12.0)
[2022-10-24] MEDS: VERAPAMIL HCL 240 MG TABCR PO SCH (16:20)
[2022-10-24] MEDS ORDERED: WARFARIN SOD 2 MG TAB PO ONE (19:20)
[2022-10-24] MEDS: HYDROXYCHLOROQUINE SULFATE 200 MG TAB PO SCH (21:18)
[2022-10-25] MEDS: HEPARIN SOD 5,000 UNIT/0.5 ML VIAL SQ SCH (06:14)
[2022-10-25] MEDS: DICLOFENAC SOD 1% GEL 100 GM TUBE EXT PRN (06:20)
[2022-10-25 07:17] LABS: INR 1.9 (0.9-1.1); Prothrombin Time 19.3 Seconds (9.0-12.0)
[2022-10-25] MEDS: LIDOCAINE 5% 1 PATCH TD SCH (07:41)
[2022-10-25] MEDS: predniSONE 20 MG TAB PO SCH (07:51)
[2022-10-25] MEDS: TORSEMIDE 10 MG TAB PO SCH (07:51)
[2022-10-25] MEDS: SUCRALFATE 1 GM/10 ML UDC PO SCH (07:52)
[2022-10-25] MEDS: METOPROLOL TARTRATE 25 MG TAB PO SCH (07:52)
[2022-10-25] MEDS: FAMOTIDINE 20 MG TAB PO SCH (07:52)
[2022-10-25] MEDS: VERAPAMIL HCL 240 MG TABCR PO SCH (09:07)
--- NOTE | 2022-10-25 11:19 | Nephrology Progress Note ---
Date of Service October 25, 2022 Assessment & Plan (1) CKD (chronic kidney disease) stage 4, GFR 15-29 ml/min: Plan: rapidly progressive per report of baseline 1.4 in fall 2021 and worse in September 2022 than in 08/2022 > would call his baseline currently in the mid 3s to mid 4s, though again significant lability past few months and in past few days marked improvement so may be trending more to baseline in 2s-3s. possible AIN among other differential diagnoses. not a renal bx candidate d/t body habitus/clotting and bleeding issues. on empiric prednisone which has improved creatinine and allowed for some diuresis. on 10/24 he was on Day 5 of 60 mg daily prednisone; has 50 mg daily prednisone starting today; to taper by 10 mg every 5 days until finished. renal function had been improving on prednisone; no eos on urine studies x 1 will need to monitor renal function as prednisone is tapered and stopped hx of repeated CHERYL / ATN episodes related to hypoxia, hx of labile BP, high HR. very prone to ATN, very sensitive to diuretics. >continue 10/24 lowered torsemide dose 20 mg daily -for now no K supplement needed NEPHRO D/C RECS -taper prednisone as per allergy -d/c on 20 mg daily torsemide and no K supplements -weekly bmp, cbc/d to be ordered by neph RN at hospital d/c -HOSPITAL DISCHARGE appt w/ me or Dr Glez in 2-3 wks at [facility] Admission and Anticipated Discharge Date Admission Date: October 12, 2022 Subjective no complaints; crenshaw out and feels he's voiding well. at bedside. no sob, no edema. Review of Systems Review of Systems: All systems reviewed & are unremarkable except as noted in Subjective Physical Exam Constitutional: well developed, well nourished, + morbidly obese, + physical limitations and cooperative; no acute distress Eyes: EOM intact bilaterally ENMT: Ears: no external ear abnormality Nose: no external nose abnormality Mouth: + dry oral mucous membranes Neck: no nuchal rigidity Respiratory: normal respiratory effort Auscultation: + diminished lung sounds Cardiovascular: Rate/Rhythm: regular rate and regular rhythm Extremities: + edema (trace) Gastrointestinal (Abdomen): Inspection/Auscultation: normal bowel sounds Percussion/Palpation: abdomen soft; abdomen nontender Musculoskeletal: Extremities: + abnormal strength Skin: no rashes, warm and dry Neurologic: [place], fluent speech, no tremor Psychiatric: Orientation: alert and oriented x 3 Results & Data ([facility]) Vital Signs (Past 12 Hours) Vital Signs Temp Pulse Resp BP Pulse Ox O2 Del Method O2 Flow Rate 10/25/22 07:45 Nasal Cannula 4 10/25/22 08:03 36.6 C 63 16 156/99 H 94 Nasal Cannula 4 10/25/22 03:14 36.5 C 68 18 151/95 H 91 Nasal Cannula 4 Laboratory Results 10/21/22 03:37 10/24/22 05:40 date noted
--- NOTE | 2022-10-25 11:53 | Hospitalist Progress Note ---
Date of Service October 25, 2022 Assessment & Plan (1) CHERYL (acute kidney injury): (2) Epigastric abdominal pain: Plan: (1) CHERYL (acute kidney injury): (2) CKD (chronic kidney disease) stage 4, GFR 15-29 ml/min: Plan: per Dr. Hines's notes with addendum: Past medical history of hypertension, morbid obesity, ambulatory dysfunction, CKD, anemia, upper extremity DVT on warfarin, obesity hypoventilation syndrome presented from home due to generalized weakness. He was discharged 2 days prior to presentation to home. He was brought back as was unable to take care of him at home and wants SNF placement. Acute kidney injury on CKD: Hypotensive episodes intermittently since admission Was on verapamil, metoprolol and torsemide Creatinine up trended to 4.75 after admission; baseline is around 3. Initially given IV fluids. Received IV Lasix as per nephrology initially; now switched to oral torsemide. Renal ultrasoundno hydronephrosis Was oliguric initially for 2 days on admission; improvement in urine output since starting IV Lasix. 10/24 Creatinine improving from 4, now 2.6 (baseline in the 3s as per patient) Torsemide decreased from 40 to 20 mg p.o. daily 10/25/2022 Remains stable and denies any symptoms No chest pain, shortness of breath, no abdominal pain, nausea and or vomiting Wants to go home this afternoon and does not want to go to rehab Stressed on going to rehab but the patient and the refused Discussed with the termite helper He will be discharged this afternoon Eosinophilia: Normalized Noted to have eosinophilia since October 06, 2022. Peripheral smear consult was done; remarkable for eosinophilia with reactive changes. Suspect that it may be related to allergy condition or drug allergy. 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 Discussed with speech language pathology assistant Dr. Ferrell Possible etiology: Hypereosinophilic syndrome, versus drug reaction from Protonix Serologic markers ordered Protonix discontinued, transition to famotidine twice daily Started on prednisone 60 mg p.o. Day 5 Decrease to 50mg po daily starting tomorrow Taper prednisone by 10 mg every 5 days, until finished Eosinophils now 0 Persistent nausea, epigastric pain-resolved Status post EGD last August 2022: Positive polyps CT abdomen pelvis ordered Hypereosinophilia contributing? Prednisone started As needed meds ordered for dyspepsia Gram-positive cocci in clusters; PCR positive for staph epidermis -Was initially started on daptomycin. -Repeat blood culture negative; discontinue antibiotics. -Does not have any signs and or symptoms of infection Morbid obesity Obesity hypoventilation syndrome Ambulatory dysfunction Generalized weakness Reports that he has been bedbound since November 2021; likely due to morbid obesity As nocturnal hypoxia; chronic CO2 retention Last admission; recommended to be discharged to SNF; wanted to go home. Came back in 3 days --patient prefers to return home, at bedside agrees states he can do PT/OT at home History of acute DVT in left upper extremity Supratherapeutic INR INR 1.9 as of 10/25/2022 We will continue outpatient dose of Coumadin Vitamin D deficiency Vitamin D level less than 7 On vitamin D 50,000 units weekly for 6 weeks Other conditions; Hypertensioncontinue metoprolol, torsemide, verapamil Rheumatoid arthritison Plaquenil. Anemia; likely due to lower GI bleed. Has EGD done on August 31, 2022; had 2 d uodenal polyp likely hyperplastic. Negative for malignancy. Colonoscopy done in September 01, 2022; 10 mm polyp removed; tubular adenoma. Repeat colonoscopy in 5 years. Hemoglobin currently stable Full code DVT prophylaxis warfarin Discussed with the manager of case, and the patient He will be discharged home this afternoon Admission and Anticipated Discharge Date Admission Date: October 12, 2022 Subjective 10/25/2022 The patient was seen and examined in medical telemetry unit He has been stable and denies any symptoms He wants to go home This was discussed in detail with the patient is well Review of Systems Review of Systems: All systems reviewed and are unremarkable except as noted below Physical Exam Physical Exam: Lying in bed comfortably Constitutional: well developed, well nourished and + morbidly obese Eyes: PERRL, conjunctivae normal, anicteric sclerae ENMT: external ear and nose normal, oropharynx normal Neck: trachea midline, no thyromegaly Respiratory: no respiratory distress Auscultation: lungs clear to auscultation bilaterally and + diminished lung sounds; no crackles Cardiovascular: Rate/Rhythm: regular rate and regular rhythm; not tachycardic Heart Sounds: normal S1 and normal S2; no murmur Extremities: + edema (1+ edema bilaterally) Gastrointestinal (Abdomen): Inspection/Auscultation: normal bowel sounds; abdomen not distended Percussion/Palpation: abdomen soft; abdomen nontender Musculoskeletal: No acute arthritis involving any joint Neurologic: Alert, awake and oriented x3. No focal sensory and motor deficit appreciated Psychiatric: A+Ox3, euthymic affect Lymphatic: no cervical or axillary lymphadenopathy Results & Data Results & Data ([facility]) Vital Signs (Past 12 Hours) Vital Signs Temp Pulse Resp BP Pulse Ox O2 Del Method O2 Flow Rate 10/25/22 07:45 Nasal Cannula 4 10/25/22 08:03 36.6 C 63 16 156/99 H 94 Nasal Cannula 4 10/25/22 03:14 36.5 C 68 18 151/95 H 91 Nasal Cannula 4 Medications Administered Current Inpatient Medications Acetaminophen (Acetaminophen 325 Mg Tab) 650 mg PO Q4H PRN PRN Reason: Pain or Fever Stop: 11/11/22 06:39 Last Admin: 10/21/22 19:23 Dose: 650 mg Al Hydrox/Mg Hydrox/Simethicone (Aluminum/Magnesium Susp 30 Ml Udc) 30 ml PO Q6H PRN PRN Reason: dyspepsia Stop: 11/18/22 14:01 Calcium Carbonate (Calcium Carbonate 500 Mg Chewable Tab) 500 mg PO TID PRN PRN Reason: dyspepsia Stop: 11/11/22 06:39 Diclofenac Sodium (Diclofenac Sod 1% Gel 100 Gm Tube) 2 gm EXT QID PRN; Protocol PRN Reason: shoulder pain Stop: 11/22/22 19:17 Last Admin: 10/25/22 06:20 Dose: 2 gm Ergocalciferol (Ergocalciferol 50,000 Units 1250 Mcg Cap) 50,000 units PO Q7D@0800 [facility] Stop: 11/11/22 07:59 Last Admin: 10/19/22 07:50 Dose: 50,000 units Famotidine (Famotidine 20 Mg Tab) 20 mg PO BID [facility] Stop: 11/18/22 19:34 Last Admin: 10/25/22 07:52 Dose: 20 mg Heparin Sodium (Porcine) (Heparin Sod 5,000 Unit/0.5 Ml Vial) 5,000 units SQ Q8 [facility]; Protocol Stop: 11/22/22 21:59 Last Admin: 10/25/22 06:14 Dose: 5,000 units Hydroxychloroquine Sulfate (Hydroxychloroquine Sulfate 200 Mg Tab) 200 mg PO HS [facility] Stop: 11/11/22 20:59 Last Admin: 10/24/22 21:18 Dose: 200 mg Lidocaine (Lidocaine 5% 1 Patch) 1 patch TD QAM [facility] Stop: 11/21/22 11:29 Last Admin: 10/25/22 07:41 Dose: Not Given Metoprolol Tartrate (Metoprolol Tartrate 25 Mg Tab) 25 mg PO BID [facility] Stop: 11/23/22 11:59 Last Admin: 10/25/22 07:52 Dose: 25 mg Miconazole Nitrate (Miconazole Nitrate Powder 43 Gm) 1 appln EXT PRN PRN PRN Reason: Affected Skin Folds Stop: 11/18/22 16:18 Miscellaneous (Remove Lidoderm Patch) 1 each N/A DAILY@2100 [facility] Stop: 11/21/22 20:59 Last Admin: 10/24/22 21:18 Dose: Not Given Nitroglycerin (Nitroglycerin Sl 0.4 Mg/Tab Tab) 0.4 mg SL UD PRN PRN Reason: Chest Pain Stop: 11/11/22 06:39 Ondansetron HCl (Ondansetron Inj 2 Mg/Ml 2 Ml Vial) 4 mg IV Q6H PRN PRN Reason: Nausea And Vomiting Stop: 11/14/22 09:06 Last Admin: 10/20/22 08:16 Dose: 4 mg Pantoprazole Sodium (Pantoprazole 40 Mg Tab) 40 mg PO BID [facility] Stop: 11/11/22 08:59 Last Admin: 10/19/22 07:49 Dose: Not Given Prednisone (Prednisone 20 Mg Tab) 60 mg PO DAILY [facility] Stop: 11/18/22 08:59 Last Admin: 10/25/22 07:51 Dose: 60 mg Sucralfate (Sucralfate 1 Gm/10 Ml Udc) 1 gm PO BID [facility] Stop: 11/18/22 20:59 Last Admin: 10/25/22 07:52 Dose: 1 gm Torsemide (Torsemide 10 Mg Tab) [facility] Stop: 11/17/22 12:44 Last Admin: 10/25/22 07:51 Dose: 40 mg Verapamil HCl (Verapamil Hcl 240 Mg Tabcr) 240 mg PO QAM [facility] Stop: 11/23/22 13:59 Last Admin: 10/25/22 09:07 Dose: 240 mg
[2022-10-25 11:56] VITALS: PULSE 66; TEMP 98.6; O2SAT 95
[2022-10-25 12:33] VITALS: BP 114/82
--- NOTE | 2022-10-26 07:16 | Discharge Summary ---
Date of Service October 25, 2022 Admission HPI Per Admitting Provider DICTATED BY:Gustavo Dawkins MD DATE OF ADMISSION: 10/12/2022 CHIEF COMPLAINT: Ambulatory dysfunction, generalized weakness, and placement. HISTORY OF PRESENT ILLNESS: This is a 57-year-old male with past medical history significant for, hypertension,HLD, morbid obesity, chronic diastolic CHF, and ambulatory dysfunction hx of gout, rheumatoid arthritis, tobacco abuse,chronic back pain, medication non compliance presents from home as wierika says cannot take care of him at home and requests for placement. The patient was recently in the hospital who was admitted on 08/29/2022 to the hospital feeling sick for 3 days, nausea, vomiting, and bloody diarrhea, increased weakness, and , his hemoglobin at the time of presentation was 5.9.As per previous h and p looks like he moved to [place] from [place] last June of 2022. It seems, the patient had 3 hospitalizations at [place] for kidney failure and hypoxia as per last H and P. The patient had prolonged hospital stay in our hospital from 08/29/2022 to oct 09 2022.. He was treated for anemia. He received 6 units of PRBC transfusions and also his iron level was low, status post iron transfusion x2. GI evaluated and the patient is status post EGD , which showed polyps were biopsied showing nonspecific duodenitis, negative for malignancy and had colonoscopy on 09/01/2022 and a 10-mm polyp was found in the rectum, which was removed with cold snare, it showed tubular adenoma, negative for high-grade dysplasia and also found to have diverticulosis of the sigmoid colon, nonbleeding internal hemorrhoids. Recommendation was to repeat colonoscopy in 5 years. His hemoglobin was stable and he was discharged on 10/09/2022 to home as per his 's request. The patient was waiting for placement, but wanted to take him home. His hemoglobin at discharge was 10.3. On last admission, he also found to have distal left brachial vein positive for DVT. He is on Coumadin. He was also found to have vitamin D deficiency with vitamin D less than 7, on weekly 50,000 units started on 09/17/2022 for 6 weeks and he had also CHERYL, and creatinine was 2.06 on presentation baseline at that time seemed to be 1.4. It went up to 3.6, then trended down to 2, then again went up to 5.5, then it trended down again to 2.8, and again went to 4, and at the time of discharge, it was 3.6. Nephrology followed the patient. They thought his previous these episodes of oliguric acute kidney injury was thought to be due to ischemic ATN in the setting of acute blood loss anemia and also because of his hypoxia, and since he is not making much urine, he was placed on torsemide 20 daily. He was also having nocturnal hypoxia, possible obstructive sleep apnea. He seemed to be noncompliant with BiPAP, used intermittently, seen by pulmonary, recommended to continue BiPAP while sleeping and at bedtime.Discharged home on oxygen, but was advised to get an outpatient sleep study as soon as possible. The patient was discharged home on Sunday and says that now she cannot take care of him at home and brought him to the hospital requesting for placement. She states there is no change since the discharge. The patient is eating and drinking okay, though his appetite is very poor. No difficulty swallowing. Denies any chest pain. No headaches. Currently, denies any back pain, no shortness of breath, no nausea, no abdominal pain. Normal bowel and bladder movements. Denies any bloody stools, black stools, or any hematuria. He says his vision is not good, but he uses glasses. Denies any runny nose or sore throat. He has occasional cough with whitish phlegm. No earaches. Currently, hemodynamically stable.Any movement of upper extremities causing pain Admission Exam Per Admitting Provider GENERAL: The patient is morbidly obese, currently not in acute distress. VITAL SIGNS: Temperature 37, pulse 102, respiratory rate 24, blood pressure 136/72, and oxygen saturation 96% on 3 L. HEENT: Pupils equal, round, and reactive to light. Oral mucosa dry. NECK: No JVD or neck masses. CARDIOVASCULAR: S1 and S2 heard. Regular rate and rhythm. No murmur. No gallop. RESPIRATORY SYSTEM: Normal AP diameter. No accessory muscle use. No wheezing. No crackles. ABDOMEN: Soft, bowel sounds present, nontender, no distention. CENTRAL NERVOUS SYSTEM: Alert and oriented. Speech is clear. No facial droop. Obeys simple commands. Moves extremities. EXTREMITIES: Lower extremity edema is present. No erythema seen. SKIN: No decubitus pressure ulcer seen. Principal Diagnosis Acute on chronic kidney disease, eosinophilia, morbid obesity, ambulatory dysfunction, obesity hypoventilation syndrome Discharge Exam Lying in bed comfortably Constitutional well developed, well nourished and + morbidly obese Eyes PERRL, conjunctivae normal, anicteric sclerae ENMT external ear and nose normal, oropharynx normal Neck trachea midline, no thyromegaly Respiratory no respiratory distress Auscultation: lungs clear to auscultation bilaterally and + diminished lung soun ds; no crackles Cardiovascular Rate/Rhythm: regular rate and regular rhythm; not tachycardic Heart Sounds: normal S1 and normal S2; no murmur Extremities: + edema (1+ edema bilaterally) Gastrointestinal (Abdomen) Inspection/Auscultation: normal bowel sounds; abdomen not distended Percussion/Palpation: abdomen soft; abdomen nontender Psychiatric A+Ox3, euthymic affect Lymphatic no cervical or axillary lymphadenopathy Discharge Data Allergies Allergy/AdvReac Type Severity Reaction Status Date / Time Iodinated Contrast Media Allergy Hives Verified 10/12/22 15:49 iodine Allergy Hives Verified 10/12/22 15:49 Consultations 10/12/22 04:09 ED Decision to Admit Stat 10/13/22 07:35 Consult Nephrology Routine 10/19/22 09:00 Consult Allergy / Immunology Routine 10/19/22 14:02 Consult Gastroenterology Routine Ordered Studies 10/13/22 07:41 US Renal Bladder [US renal/blad retro comp] Routine 10/19/22 14:45 CT abd pelvis wo con Routine Hospital Course (1) CHERYL (acute kidney injury): (2) Epigastric abdominal pain: (1) CHERYL (acute kidney injury): (2) CKD (chronic kidney disease) stage 4, GFR 15-29 ml/min: Plan: per Dr. Hines's notes with addendum: Past medical history of hypertension, morbid obesity, ambulatory dysfunction, CKD, anemia, upper extremity DVT on warfarin, obesity hypoventilation syndrome presented from home due to generalized weakness. He was discharged 2 days prior to presentation to home. He was brought back as was unable to take care of him at home and wants SNF placement. Acute kidney injury on CKD: Hypotensive episodes intermittently since admission Was on verapamil, metoprolol and torsemide Creatinine up trended to 4.75 after admission; baseline is around 3. Initially given IV fluids. Received IV Lasix as per nephrology initially; now switched to oral torsemide. Renal ultrasoundno hydronephrosis Was oliguric initially for 2 days on admission; improvement in urine output since starting IV Lasix. 10/24 Creatinine improving from 4, now 2.6 (baseline in the 3s as per patient) Torsemide decreased from 40 to 20 mg p.o. daily 10/25/2022 Remains stable and denies any symptoms No chest pain, shortness of breath, no abdominal pain, nausea and or vomiting Wants to go home this afternoon and does not want to go to rehab Stressed on going to rehab but the patient and the refused Discussed with the fountain jerk He will be discharged this afternoon Eosinophilia: Normalized Noted to have eosinophilia since October 06, 2022. Peripheral smear consult was done; remarkable for eosinophilia with reactive changes. Suspect that it may be related to allergy condition or drug allergy. 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 Discussed with chalk machine operator Dr. Ferrell Possible etiology: Hypereosinophilic syndrome, versus drug reaction from Protonix Serologic markers ordered Protonix discontinued, transition to famotidine twice daily Started on prednisone 60 mg p.o. Day 5 Decrease to 50mg po daily starting tomorrow Taper prednisone by 10 mg every 5 days, until finished Eosinophils now 0 Persistent nausea, epigastric pain-resolved Status post EGD last August 2022: Positive polyps CT abdomen pelvis ordered Hypereosinophilia contributing? Prednisone started As needed meds ordered for dyspepsia Gram-positive cocci in clusters; PCR positive for staph epidermis -Was initially started on daptomycin. -Repeat blood culture negative; discontinue antibiotics. -Does not have any signs and or symptoms of infection Morbid obesity Obesity hypoventilation syndrome Ambulatory dysfunction Generalized weakness Reports that he has been bedbound since November 2021; likely due to morbid obesity As nocturnal hypoxia; chronic CO2 retention Last admission; recommended to be discharged to SNF; wanted to go home. Came back in 3 days --patient prefers to return home, at bedside agrees states he can do PT/OT at home History of acute DVT in left upper extremity Supratherapeutic INR INR 1.9 as of 10/25/2022 We will continue outpatient dose of Coumadin Vitamin D deficiency Vitamin D level less than 7 On vitamin D 50,000 units weekly for 6 weeks Other conditions; Hypertensioncontinue metoprolol, torsemide, verapamil Rheumatoid arthritison Plaquenil. Anemia; likely due to lower GI bleed. Has EGD done on August 31, 2022; had 2 duodenal polyp likely hyperplastic. Negative for malignancy. Colonoscopy done in September 01, 2022; 10 mm polyp removed; tubular adenoma. Repeat colonoscopy in 5 years. Hemoglobin currently stable Full code DVT prophylaxis warfarin Discussed with the caser up, and the patient He will be discharged home this afternoon Total Time Total Time Spent Total Time Spent (In Minutes): 45 minutes Discharge Plan Discharge Items Patient Disposition: Home - Home Health Services Reason For Visit: ILLNESS Discharge Diagnosis: Acute on chronic kidney disease, eosinophilia, morbid obesity, ambulatory dysfunction, obesity hypoventilation syndrome Condition on Discharge: Good Activity: Resume your previous activity Activity Comment: Will need PT and OT Non-emergency contact: Primary Care Provider Call non-emergency contact if: you have any medication questions and your symptoms worsen Follow-up/Referrals: Nestor Glez MD [Surgeon] - (Date & Time 11/08/2022 1:00 PM Provider Nestor Glez MD Department Nephrology, [facility] ) Nichole Escalante MD [Outside Practitioners] - (Date & Time 10/30/2022 10:20 AM Provider Nichole Escalante MD Department General Internal Medicine [facility] ) Diet: Carb Consistent or DM2 and Heart Healthy Addtl Attending Provider Instructions: Please take precautions to avoid falls Take your medications as advised Please keep appointment with your healthcare providers Continue physical therapy Pending Studies at Discharge: No Stand-Alone Forms: My [facility], Smoking Cessation Medications and DC Order Prescriptions: New lidocaine 5 % Adhesive Patch,Medicated 1 patch transdermal QAM 30 Days Qty: 30 0RF prednisone 10 mg tablet 10 mg PO UD Qty: 75 0RF Rx Instructions: 5 p.o. daily for 5 days, 4 p.o. daily for 5, 3 p.o. daily for 5, 2 p.o. daily for 5, 1 p.o. daily for 5 days. sucralfate 1 gram tablet 1 g PO BID Qty: 60 0RF Continued verapamil 240 mg Capsule,Ext Rel. Pellets 24 Hr 240 mg PO QAM calcium carbonate [Tums] 200 mg calcium (500 mg) Tablet,Chewable 500 mg PO TID PRN (Reason: dyspepsia) Qty: 30 0RF warfarin 1 mg Tablet 0.5 mg PO DAILY@1600 30 Days Qty: 30 0RF hydroxychloroquine 200 mg Tablet 200 mg PO HS 30 Days Qty: 30 0RF metoprolol tartrate 25 mg Tablet 25 mg PO BID 30 Days Qty: 60 0RF pantoprazole 40 mg Tablet,Delayed Release (Dr/Ec) 40 mg PO BID 30 Days Qty: 60 0RF ergocalciferol (vitamin D2) 1,250 mcg (50,000 unit) Capsule 50,000 unit PO Q7D@0800 30 Days Qty: 4 0RF carvedilol 12.5 mg tablet 12.5 mg PO BID Qty: 60 0RF Rx Instructions: must administer with a meal/food torsemide 20 mg tablet 20 mg PO QAM Qty: 30 0RF Discharge Orders: Discharge Order (Routine); Ordered 10/25/22 Ordered By: Laura Young Admission Data Admit Date/Time: 10/12/22 05:00 Attending Provider: Laura Young Admit Provider: Gustavo Dawkins Primary Care Provider: King Holcomb Other Providers: Gustavo Dawkins ; Nicole Coyle ; Nina Richards ; Nazia Ferrell ; Jayson Hines ; Rosalinda Guzman ; Lai Rebolledo Other Interventions: Discharge Summary Assessment (RN) Last Done: 10/25/22 12:33
== END 2022-10-25 13:20 | disposition home health service (06) | DRG 683 ==
LOC: ED 03:51 → SUATTDRO 05:00 → EDINP 05:00 → 2W 06:27

== ENCOUNTER 2023-05-11 22:17 | Inpatient (IN) ==
--- NOTE | 2023-05-11 22:43 | Emergency Department Note ---
Impression & Plan Slurring of speech, Hypoxia, Chronic anticoagulation ED Provider Note Provider: Alex Ching MD DATE OF SERVICE: 05/11/2023 CHIEF COMPLAINT: Stroke symptoms, speech issues HISTORY OF PRESENT ILLNESS: Patient is a 57-year-old gentleman history of DVT on warfarin, CKD, morbid obesity obesity hypoventilation syndrome, and heart failure presenting here today via ambulance from his apartment. Patient relays that he had a stroke about 3 months ago. States he had vision issues then but that is resolved. Evidently this evening had sudden onset of speech issues around 830 or so. Slurring his speech and was difficulty getting words out. Denies other new numbness or tingling extremities or face. Denies falls or trauma. No recent fevers reported. Noted for EMS to be somewhat hypoxic and he states he does have some low oxygen levels occasionally. Denies any chest pain or abdominal pain. May be of mild headache but not anything significant. Denies history of similar symptoms. Denies wounds or nausea or vomiting to me. Made a stroke alert prior arrival taken immediately to CT scanner. PAST MEDICAL HISTORY: As noted above MEDICATIONS: Reviewed home medication list includes warfarin SOCIAL HISTORY: Lives in [facility] apartment, reportedly PHYSICAL EXAM: GENERAL: alert and oriented in no acute distress on stretcher Head: normocephalic and atraumatic EYES: No injection, discharge or icterus. NECK: Trachea midline. ENT: Mucous membranes pink and moist. LUNGS: Airway patent. No retractions. Breath sounds generally diminished HEART: Regular rate and rhythm. No chest wall tenderness ABDOMEN: Soft, obese, and non-tender, without guarding or rebound. SKIN: Acyanotic, warm, dry, without rashes EXTREMITIES: Without swelling, tenderness or deformity NEUROLOGICAL: Slight aphasia and some slurred speech appreciated. Ambulatory. EK bpm normal sinus rhythm with incomplete right bundle branch block. No PVC noted. QTc 478. Left axis. CONTINUOUS CARDIAC MONITORING: was ordered and showed a heart rate of 70s-80s bpm in normal sinus rhythm 1 view chest x-ray per my interpretation: No pneumothorax. No pneumonia with some trace effusion at the left lung base. Patient's laboratory studies and imaging reviewed. Differential includes Infection, dehydration, metabolic abnormality, hypo/hyperglycemia, electrolyte disturbance, anemia, hypoxia, cardiac sources, intracerebral event, toxicologic, neurologic, as well as other pathologies. IMPRESSION/MEDICAL DECISION MAKING: Made a stroke alert prior to arrival given reports of neurological change with slurred speech possible aphasia. Take immediately to CT scanner. Patient relays warfarin use supportive care warfarin obtained and is therapeutic at 2.3. As such not a TNK/tPA candidate given the INR elevation from his therapeutic Coumadin usage. CT scan of the head completed to exclude intracranial bleed. No large hemiparesis or significant numbness or weakness newly appreciated in the extremities that is not symmetric. Maybe a bit of slurred speech and slight aphasia. No severe facial droop. Basic blood work obtained. Reviewed prior medical record notes indicate significant history of CKD as well as iodine allergy and as such noncontrast scans completed we will avoid CTAs at this time. Lab work sent as well as given some history of possible infections blood culture sent as well as VBG given the oxygen usage as may be some hypercarbia could be contributing to symptoms. Chest x-ray ordered. Blood returns with out anemia or thrombocytopenia. White blood cell count 11.13 nonspecifically elevated. VBG without significant acidosis or hypercarbia. Lactate within normal limits. Call from radiology with report that head CT without signs of bleed or obvious acute intracranial abnormality. Per patient request attempted call his at listed phone number in the chart without answer. Procalcitonin undetectably low and doubt systemic infection or sepsis. Renal function today actually returns significantly improved from recent previous but still would not proceed with IV contrast at this time given the allergies and as not to provoke significant renal dysfunction. Again formal INR is therapeutic excluding any possible thrombolysis. Do have some concern the patient suffered a CVA event but likely not hemorrhagic. Unfortunately there will not be any other acute intervention I can offer to him at this time. Discussed with him staying for further evaluation the hospitalist contacted. DIAGNOSIS: Slurred speech, hypoxia DISPOSITION: Hospitalist will evaluate Patient was agreeable with this plan. Past Med/Surg History Medical History CHERYL (acute kidney injury) Anemia CKD (chronic kidney disease) stage 4, GFR 15-29 ml/min DVT (deep venous thrombosis) Eosinophilia Morbid obesity Obesity hypoventilation syndrome Social History Smoking Status: Current some day smoker Tobacco Type: Cigarettes and E-cigarettes / Vaping Hx Alcohol Use: No Hx Substance Use: No Preferred Language: Slovak Communication Ability: Effective Press Washer Required: No Beliefs That Will Affect Care: None Current Living Situation: Spouse Feels Safe at Home: Yes Assistive Devices: Oxygen - Continuous Allergies Allergies Allergy/AdvReac Type Severity Reaction Status Date / Time Iodinated Contrast Media Allergy Hives Verified 05/12/23 00:10 iodine Allergy Hives Verified 05/12/23 00:10 Home Meds Home Medications Medication Instructions Recorded Confirmed verapamil 240 mg 24 hr 240 mg PO QAM 08/29/22 05/12/23 capsule,extended release albuterol sulfate 90 mcg/actuation 2 puff inhalation Q4 PRN Wheezing 05/12/23 05/12/23 aerosol inhaler ferrous sulfate 325 mg (65 mg 325 mg PO DAILY 05/12/23 05/12/23 iron) tablet (FeroSul) sildenafil 50 mg tablet 50 mg PO DAILY PRN .. 05/12/23 05/12/23 Previous Rx's Medication Instructions Recorded carvedilol 12.5 mg tablet 12.5 mg PO BID #60 tabs 10/07/22 torsemide 20 mg tablet 20 mg PO QAM #30 tabs 10/07/22 prednisone 10 mg tablet 10 mg PO UD #75 tabs 10/25/22 Results & Data (ED) Vital Signs Vital Signs - 24 hr 05/11/23 22:31 05/11/23 22:46 05/11/23 22:46 Temperature 36.8 C Temperature Source Oral Pulse Rate 72 78 82 Pulse Rate from SpO2 Sensor 78 Pulse Rhythm Regular Pulse Strength Normal Respiratory Rate 20 19 Respiratory Effort / Characteristics Non-Labored Spontaneous Respiratory Depth Normal Respiratory Pattern Regular Blood Pressure 148/127 H Blood Pressure Mean 134 Blood Pressure Position Lying Pulse Oximetry 96 100 Oxygen Delivery Method Nasal Cannula Oxygen Flow Rate 2 Sepsis Recent Fever Within 48 Hours No Sepsis New/Unexplained Change in Mental Status No Sepsis Action Taken by Nursing No Action Required 05/11/23 22:50 05/11/23 22:50 05/11/23 23:00 Temperature Temperature Source Pulse Rate 77 77 Pulse Rate from SpO2 Sensor 76 79 Pulse Rhythm Pulse Strength Respiratory Rate 24 23 Respiratory Effort / Characteristics Respiratory Depth Respiratory Pattern Blood Pressure 144/83 H Blood Pressure Mean 103 Blood Pressure Position Pulse Oximetry 100 97 Oxygen Delivery Method Oxygen Flow Rate Sepsis Recent Fever Within 48 Hours Sepsis New/Unexplained Change in Mental Status Sepsis Action Taken by Nursing 05/11/23 23:01 05/11/23 23:01 05/11/23 23:10 Temperature Temperature Source Pulse Rate 86 74 Pulse Rate from SpO2 Sensor 84 71 Pulse Rhythm Pulse Strength Respiratory Rate 22 27 H Respiratory Effort / Characteristics Respiratory Depth Respiratory Pattern Blood Pressure 137/110 H Blood Pressure Mean 119 Blood Pressure Position Pulse Oximetry 98 97 Oxygen Delivery Method Oxygen Flow Rate Sepsis Recent Fever Within 48 Hours Sepsis New/Unexplained Change in Mental Status Sepsis Action Taken by Nursing 05/11/23 23:17 05/11/23 23:17 05/11/23 23:20 Temperature Temperature Source Pulse Rate 80 79 Pulse Rate from SpO2 Sensor 79 80 Pulse Rhythm Pulse Strength Respiratory Rate 22 26 H Respiratory Effort / Characteristics Respiratory Depth Respiratory Pattern Blood Pressure 145/101 H Blood Pressure Mean 115 Blood Pressure Position Pulse Oximetry 98 97 Oxygen Delivery Method Oxygen Flow Rate Sepsis Recent Fever Within 48 Hours Sepsis New/Unexplained Change in Mental Status Sepsis Action Taken by Nursing 05/11/23 23:35 05/11/23 23:40 Temperature Temperature Source Pulse Rate 75 76 Pulse Rate from SpO2 Sensor 78 75 Pulse Rhythm Pulse Strength Respiratory Rate 21 23 Respiratory Effort / Characteristics Respiratory Depth Respiratory Pattern Blood Pressure Blood Pressure Mean Blood Pressure Position Pulse Oximetry 93 94 Oxygen Delivery Method Oxygen Flow Rate Sepsis Recent Fever Within 48 Hours Sepsis New/Unexplained Change in Mental Status Sepsis Action Taken by Nursing Laboratory Data 05/11/23 22:36 05/11/23 22:36 Lab Results 05/11/23 05/11/23 05/11/23 Range/Units 22:35 22:36 22:36 WBC 11.13 H (4.8-10.8) K/ul RBC 5.14 (4.70-6.10) M/uL Hgb 15.8 (14.0-18.0) g/dl Hct 48.9 (42.0-52.0) % MCV 95.1 (80.0-100.0) fL MCH 30.7 (25.0-34.0) pg MCHC 32.3 (32.0-36.0) g/dL RDW Std Deviation 55.9 H (36.4-46.3) fL RDW Coeff of Cheryl 15.9 H (11.5-14.5) % Plt Count 232 (130-400) K/uL MPV 10.1 (9.4-12.4) fL Immature Gran % (Auto) 0.7 % Neut % (Auto) 74.7 % Lymph % (Auto) 14.5 % Quay % (Auto) 6.3 % Eos % (Auto) 3.4 % Baso % (Auto) 0.4 % Neut # (Auto) 8.31 H (1.40-6.50) K/uL Lymph # (Auto) 1.61 (1.2-3.4) K/uL Quay # (Auto) 0.70 H (0.11-0.59) K/uL Eos # (Auto) 0.38 (0-0.50) K/uL Baso # (Auto) 0.05 (0-0.2) K/uL Immature Gran # (Auto) 0.08 (0.01-0.20) K/uL PT (9.0-12.0) Seconds INR (0.9-1.1) APTT (21.0-31.0) Seconds PTT Ratio VBG pH (7.36-7.41) VBG pCO2 (38-50) mmHg VBG pO2 mmHg VBG HCO3 mmol/L VBG O2 Saturation % VBG Base Excess mEq/L Sodium (136-145) mmol/L Potassium (3.5-5.1) mmol/L Chloride (98-107) mmol/L Carbon Dioxide (21-32) mmol/L Anion Gap (3-11) BUN (6-23) mg/dl Creatinine (0.6-1.4) mg/dl Est Cr Clr Drug Dosing ml/min Est GFR ( Amer) ml/min Est GFR (Non-Af Amer) ml/min BUN/Creatinine Ratio (10-20) Glucose (70-99(Fasting)) mg/dl POC Glucose 100 H (70-99) mg/dl Lactate (0.4-2.0) mmol/L Calcium (8.6-10.3) mg/dl Magnesium (1.7-2.4) mg/dl Total Bilirubin (0.2-1.0) mg/dl AST (13-39) U/L ALT (7-52) U/L Alkaline Phosphatase (34-104) U/L Troponin I High Sens (0-20) pg/ml Total Protein (6.0-8.3) gm/dl Albumin (3.4-5.0) gm/dl Globulin (2.5-4.0) gm/dl Albumin/Globulin Ratio (0.9-2) Procalcitonin (0-0.5) ng/ml Blood Type O Negative Antibody Screen NEGATIVE 05/11/23 05/11/23 05/11/23 Range/Units 22:36 22:36 22:36 WBC (4.8-10.8) K/ul RBC (4.70-6.10) M/uL Hgb (14.0-18.0) g/dl Hct (42.0-52.0) % MCV (80.0-100.0) fL MCH (25.0-34.0) pg MCHC (32.0-36.0) g/dL RDW Std Deviation (36.4-46.3) fL RDW Coeff of Cheryl (11.5-14.5) % Plt Count (130-400) K/uL MPV (9.4-12.4) fL Immature Gran % (Auto) % Neut % (Auto) % Lymph % (Auto) % Quay % (Auto) % Eos % (Auto) % Baso % (Auto) % Neut # (Auto) (1.40-6.50) K/uL Lymph # (Auto) (1.2-3.4) K/uL Quay # (Auto) (0.11-0.59) K/uL Eos # (Auto) (0-0.50) K/uL Baso # (Auto) (0-0.2) K/uL Immature Gran # (Auto) (0.01-0.20) K/uL PT 22.6 H (9.0-12.0) Seconds INR 2.2 H (0.9-1.1) APTT 38.2 H (21.0-31.0) Seconds PTT Ratio 1.4 VBG pH 7.47 H (7.36-7.41) VBG pCO2 45 (38-50) mmHg VBG pO2 49 mmHg VBG HCO3 33 mmol/L VBG O2 Saturation 85.9 % VBG Base Excess 8.0 mEq/L Sodium 139 (136-145) mmol/L Potassium 3.7 (3.5-5.1) mmol/L Chloride 103 (98-107) mmol/L Carbon Dioxide 29 (21-32) mmol/L Anion Gap 7 (3-11) BUN 26 H (6-23) mg/dl Creatinine 1.50 H (0.6-1.4) mg/dl Est Cr Clr Drug Dosing 98.8 ml/min Est GFR ( Amer) 59.0 ml/min Est GFR (Non-Af Amer) 50.9 ml/min BUN/Creatinine Ratio 17.3 (10-20) Glucose 105 H (70-99(Fasting)) mg/dl POC Glucose (70-99) mg/dl Lactate (0.4-2.0) mmol/L Calcium 9.4 (8.6-10.3) mg/dl Magnesium 1.9 (1.7-2.4) mg/dl Total Bilirubin 0.8 (0.2-1.0) mg/dl AST 12 L (13-39) U/L ALT 8 (7-52) U/L Alkaline Phosphatase 55 (34-104) U/L Troponin I High Sens 11.6 (0-20) pg/ml Total Protein 6.5 (6.0-8.3) gm/dl Albumin 3.5 (3.4-5.0) gm/dl Globulin 3.0 (2.5-4.0) gm/dl Albumin/Globulin Ratio 1.2 (0.9-2) Procalcitonin (0-0.5) ng/ml Blood Type Antibody Screen 05/11/23 05/11/23 Range/Units 22:36 22:36 WBC (4.8-10.8) K/ul RBC (4.70-6.10) M/uL Hgb (14.0-18.0) g/dl Hct (42.0-52.0) % MCV (80.0-100.0) fL MCH (25.0-34.0) pg MCHC (32.0-36.0) g/dL RDW Std Deviation (36.4-46.3) fL RDW Coeff of Cheryl (11.5-14.5) % Plt Count (130-400) K/uL MPV (9.4-12.4) fL Immature Gran % (Auto) % Neut % (Auto) % Lymph % (Auto) % Quay % (Auto) % Eos % (Auto) % Baso % (Auto) % Neut # (Auto) (1.40-6.50) K/uL Lymph # (Auto) (1.2-3.4) K/uL Quay # (Auto) (0.11-0.59) K/uL Eos # (Auto) (0-0.50) K/uL Baso # (Auto) (0-0.2) K/uL Immature Gran # (Auto) (0.01-0.20) K/uL PT (9.0-12.0) Seconds INR (0.9-1.1) APTT (21.0-31.0) Seconds PTT Ratio VBG pH (7.36-7.41) VBG pCO2 (38-50) mmHg VBG pO2 mmHg VBG HCO3 mmol/L VBG O2 Saturation % VBG Base Excess mEq/L Sodium (136-145) mmol/L Potassium (3.5-5.1) mmol/L Chloride (98-107) mmol/L Carbon Dioxide (21-32) mmol/L Anion Gap (3-11) BUN (6-23) mg/dl Creatinine (0.6-1.4) mg/dl Est Cr Clr Drug Dosing ml/min Est GFR ( Amer) ml/min Est GFR (Non-Af Amer) ml/min BUN/Creatinine Ratio (10-20) Glucose (70-99(Fasting)) mg/dl POC Glucose (70-99) mg/dl Lactate 1.7 (0.4-2.0) mmol/L Calcium (8.6-10.3) mg/dl Magnesium (1.7-2.4) mg/dl Total Bilirubin (0.2-1.0) mg/dl AST (13-39) U/L ALT (7-52) U/L Alkaline Phosphatase (34-104) U/L Troponin I High Sens (0-20) pg/ml Total Protein (6.0-8.3) gm/dl Albumin (3.4-5.0) gm/dl Globulin (2.5-4.0) gm/dl Albumin/Globulin Ratio (0.9-2) Procalcitonin < 0.05 (0-0.5) ng/ml Blood Type Antibody Screen Imaging Data Radiologist's Impression: Head CT 05/11/23 22:18 CR Exam(s): CT HEAD Without Contrast EXAM: CT Head Without Intravenous Contrast CLINICAL HISTORY: Reason for exam: neuro deficit, acute stroke suspected. TECHNIQUE: Axial computed tomography images of the head/brain without intravenous contrast. CTDI is 38.11 mGy and DLP is 695.44 mGy-cm. Automated exposure control was utilized for the study. A dose lowering technique was utilized adhering to the principles of ALARA. COMPARISON: No relevant prior studies available. FINDINGS: The study is suboptimal secondary to motion artifact. Brain: Unremarkable. No hemorrhage. Moderate nonspecific white matter changes. No edema. Ventricles: Unremarkable. No ventriculomegaly. Bones/joints: Unremarkable. No acute fracture. Soft tissues: Unremarkable. Sinuses: Unremarkable as visualized. No acute sinusitis. Mastoid air cells: Unremarkable as visualized. No mastoid effusion. IMPRESSION: No evidence of acute intracranial pathology. Communications: Call Doctor Stroke Electronically signed by: Janis Riddel MD 05/11/23 23:04 PM Discharge Plan Visit Data Chief Complaint: Stroke/CVA Symptoms Stated Complaint: SLURRED SPEECH ED Provider: Alex Ching Discharge Problem: Slurring of speech, Hypoxia, Chronic anticoagulation Patient Disposition: Being Evaluated by Hospitalist Forms Stand Alone Forms: My [facility] 117go Prescriptions Prescriptions: No Action verapamil 240 mg Capsule,Ext Rel. Pellets 24 Hr 240 mg PO QAM carvedilol 12.5 mg tablet 12.5 mg PO BID Qty: 60 0RF Rx Instructions: must administer with a meal/food torsemide 20 mg tablet 20 mg PO QAM Qty: 30 0RF prednisone 10 mg tablet 10 mg PO UD Qty: 75 0RF Rx Instructions: Taper as directed sildenafil 50 mg tablet 50 mg PO DAILY PRN (Reason: ..) ferrous sulfate [FeroSul] 325 mg (65 mg iron) tablet 325 mg PO DAILY Rx Instructions: Pt states takes daily. albuterol sulfate 90 mcg/actuation HFA aerosol inhaler 2 puff INHALATION Q4 PRN (Reason: Wheezing) Referrals Referrals: King Holcomb DO [Primary Care Provider] -
[2023-05-11 22:44] LABS: Basophils # (auto) 0.05 K/uL (0-0.2); Basophils % (auto) 0.4 %; Eosinophils # (auto) 0.38 K/uL (0-0.50); Eosinophils % (auto) 3.4 %; HCO3 VBG 33 mmol/L; Hematocrit (blood only) 48.9 % (42.0-52.0); Hemoglobin 15.8 g/dl (14.0-18.0); Immature Granulocytes # (auto) 0.08 K/uL (0.01-0.20); Immature Granulocytes % (auto) 0.7 %; Lymphocytes # (auto) 1.61 K/uL (1.2-3.4); Lymphocytes % (auto) 14.5 %; Mean Corpuscular Hemoglobin 30.7 pg (25.0-34.0); Mean Corpuscular Hgb Conc 32.3 g/dL (32.0-36.0); Mean Corpuscular Volume 95.1 fL (80.0-100.0); Mean Platelet Volume 10.1 fL (9.4-12.4); Monocytes % (auto) 6.3 %; Neutrophils # (auto) 8.31 K/uL (1.40-6.50); Neutrophils % (auto) 74.7 %; Oxygen Saturation VBG 85.9 %; PCO2 VBG 45 mmHg (38-50); PO2 VBG 49 mmHg; Platelet Count 232 K/uL (130-400); RDW Coefficient of Variation 15.9 % (11.5-14.5); RDW Standard Deviation 55.9 fL (36.4-46.3); Red Blood Count 5.14 M/uL (4.70-6.10); White Blood Count 11.13 K/ul (4.8-10.8); pH VBG 7.47 (7.36-7.41)
[2023-05-11 23:02] LABS: INR 2.2 (0.9-1.1); Partial Thromboplastin Ratio 1.4; Partial Thromboplastin Time 38.2 Seconds (21.0-31.0); Prothrombin Time 22.6 Seconds (9.0-12.0)
--- NOTE | 2023-05-11 23:05 | CT Scan Report ---
Exam(s): CT HEAD Without Contrast EXAM: CT Head Without Intravenous Contrast CLINICAL HISTORY: Reason for exam: neuro deficit, acute stroke suspected. TECHNIQUE: Axial computed tomography images of the head/brain without intravenous contrast. CTDI is 38.11 mGy and DLP is 695.44 mGy-cm. Automated exposure control was utilized for the study. A dose lowering technique was utilized adhering to the principles of ALARA. COMPARISON: No relevant prior studies available. FINDINGS: The study is suboptimal secondary to motion artifact. Brain: Unremarkable. No hemorrhage. Moderate nonspecific white matter changes. No edema. Ventricles: Unremarkable. No ventriculomegaly. Bones/joints: Unremarkable. No acute fracture. Soft tissues: Unremarkable. Sinuses: Unremarkable as visualized. No acute sinusitis. Mastoid air cells: Unremarkable as visualized. No mastoid effusion. IMPRESSION: No evidence of acute intracranial pathology. Communications: Call Doctor Stroke Electronically signed by: Janis Riddle MD 05/11/23 23:04 PM
[2023-05-11 23:09] LABS: Albumin Globulin Ratio 1.2 (0.9-2); Albumin Level 3.5 gm/dl (3.4-5.0); BUN Creatinine Ratio 17.3 (10-20); Bilirubin,Total 0.8 mg/dl (0.2-1.0); Calcium 9.4 mg/dl (8.6-10.3); Creatinine Clr Calc Pharmacy 98.8 ml/min; Est GFR (Non-African American) 50.9 ml/min; Magnesium 1.9 mg/dl (1.7-2.4); Potassium 3.7 mmol/L (3.5-5.1); Total Protein 6.5 gm/dl (6.0-8.3)
[2023-05-11 23:16] LABS: Troponin I High Sensitivity 11.6 pg/ml (0-20)
--- NOTE | 2023-05-12 03:19 | History & Physical Report ---
Date of Service May 12, 2023 Assessment & Plan (1) Slurring of speech: Plan: This is a 57-year-old male with past medical history significant for, hypertension,HLD, morbid obesity, chronic diastolic CHF, and ambulatory dysfunction currently wheelchair-bound hx of gout, rheumatoid arthritis, tobacco abuse,chronic back pain, medication non compliance, chronic kidney disease, morbid obesity, obesity hypoventilation syndrome, history of DVT on Coumadin currently living at home is brought in because of strokelike symptoms since around 5 PM he noticed to have slurred speech. Strokelike symptoms Slurred speech CT head okay CTA head and neck not done because of history of significant CHERYL in the recent past Patient on Coumadin and INR therapeutic TNK was not given because of INR therapeutic Patient states he is severely claustrophobic for MRI scan We will monitor on telemetry floor, neurochecks per protocol Speech evaluation and PT OT evaluation Permissive hypertension N.p.o. for now, gentle fluids We will get echocardiogram and carotid Doppler Consult neurology in a.m. for further recommendations Close monitoring telemetry floor Hypertension On Coreg and verapamil We will reduce Coreg dose to 6.25 for now to allow permissive hypertension We will monitor History DVT On warfarin INR therapeutic We will follow PT/INR Chronically kidney disease Creatinine 1.5 today improved from previous We will follow labs history of gout Allopurinol Rheumatoid arthritis Says currently on prednisone 30 mg daily seems to be on tapering dose Looks like he was on 5 to 10 mg daily in the past Morbid obesity Obesity hypoventilation syndrome Not using BiPAP Oxygen VBG is okay Chronic diastolic CHF On torsemide We will monitor for volume overload History of anemia On iron supplements Hemoglobin stable DVT prophylaxis on Coumadin Disposition telemetry floor Full code History of Present Illness Chief Complaint: Strokelike symptoms Primary Care Provider: King Holcomb DO This is a 57-year-old male with past medical history significant for, hypertension,HLD, morbid obesity, chronic diastolic CHF, and ambulatory dysfunction currently wheelchair-bound, hx of gout, rheumatoid arthritis, tobacco abuse,chronic back pain, medication non compliance, chronic kidney disease, morbid obesity, obesity hypoventilation syndrome, history of DVT on Coumadin currently living at home is brought in because of strokelike symptoms since around 5 PM he noticed to have slurred speech. In the ER patient was stroke alert , initial CT of the head is okay.He is on Coumadin INR is 2.3 so TNK/tPA was not given. Hemodynamics are stable. Says he is not using BiPAP at home ,only using oxygen. Denies any headache. Vision is okay. No fevers. No cough. Denies any chest pain. Has some shortness of breath. No nausea. No abdominal pain. Normal bowel and bladder movements. Patient had prolonged hospitalization in August 2022 and again in September 2022 for ambulatory dysfunction, generalized weakness and CHERYL. In August he had anemia of 5.9 received 6 units of PRBC during that admission and also had iron transfusions seen by GI s/p EGD which showed nonspecific duodenitis , s/p colonoscopy which showed nonbleeding internal hemorrhoids, diverticulosis and tubular adenoma and recommended to repeat colonoscopy in 5 years.Was also found to have DVT distal left brachial vein DVT and started on Coumadin. Creatine peaked to 5.5 in August 2022.. In September 2022.Creatinine trended up to 4.75 and was 2.8 at time of discharge on October 24, 2022. Creatinine is 1.5 today. Was Noncompliant with BiPAP and refused placement. Past medical history as mentioned above Past surgical history colonoscopy, EGD, right knee arthroscopy, left tendon repair, tonsillectomy adenoidectomy, tooth root removal Social history . quit smoking in 2010. No alcohol use. No drug use Family history mother has diabetes and hypertension Allergies Allergy/AdvReac Type Severity Reaction Status Date / Time Iodinated Contrast Media Allergy Hives Verified 05/12/23 00:10 iodine Allergy Hives Verified 05/12/23 00:10 Home Medications Medication Instructions Recorded Confirmed Type verapamil 240 mg 24 hr 240 mg PO QAM 08/29/22 05/12/23 History capsule,extended release carvedilol 12.5 mg tablet 12.5 mg PO BID #60 tabs 10/07/22 05/12/23 Rx torsemide 20 mg tablet 20 mg PO QAM #30 tabs 10/07/22 05/12/23 Rx prednisone 10 mg tablet 10 mg PO UD #75 tabs 10/25/22 05/12/23 Rx albuterol sulfate 90 mcg/actuation 2 puff inhalation Q4 PRN Wheezing 05/12/23 05/12/23 History aerosol inhaler allopurinol 300 mg tablet 300 mg PO DAILY 05/12/23 05/12/23 History ferrous sulfate 325 mg (65 mg 325 mg PO DAILY 05/12/23 05/12/23 History iron) tablet (FeroSul) sildenafil 50 mg tablet 50 mg PO DAILY PRN .. 05/12/23 05/12/23 History warfarin 2 mg tablet 4 mg PO DAILY 05/12/23 05/12/23 History Past Med/Surg History Medical History CHERYL (acute kidney injury) Anemia CKD (chronic kidney disease) stage 4, GFR 15-29 ml/min DVT (deep venous thrombosis) Eosinophilia Morbid obesity Obesity hypoventilation syndrome Social History Smoking Status: Former smoker Tobacco Type: Cigarettes and E-cigarettes / Vaping Do You Dip or Chew Tobacco: No; Hx Alcohol Use: No Hx Substance Use: No Preferred Language: Macanese Communication Ability: Effective Operations Mgr Required: No Beliefs That Will Affect Care: None Current Living Situation: Spouse Other Information That Helps Us Care for You: No Feels Safe at Home: Yes Safety Concerns: Feels Safe At This Time Assistive Devices: Wheelchair Review of Systems Review of Systems: All systems reviewed & are unremarkable except as noted in HPI & below Physical Exam Physical Exam: General-Not in acute distress. Head- atraumatic Eyes- PERRL, ENT- oropharynx clear Neck- supple, no JVD, Lungs- clear to auscultation no wheezing or crackles. Heart- regular rhythm; no murmur, no gallop. Abdomen- normal bowel sounds, soft, nontender, no distension. Extremities- mild pretibial edema, no erythema seen. Neuro- alert, oriented x 3; PERRL,Speech slurred no facial palsy;tounge midline. obeys commands.b/l weakness in extremities. Skin- warm & dry Results & Data Results & Data Vital Signs (Past 12 Hours) Vital Signs Temp Pulse Pulse Resp BP BP Pulse Ox 05/12/23 02:58 86 20 142/113 H 94 05/11/23 23:40 76 23 94 05/11/23 23:35 75 21 93 05/11/23 23:20 79 26 H 97 05/11/23 23:17 80 22 98 05/11/23 23:17 145/101 H 05/11/23 23:10 74 27 H 97 05/11/23 23:01 137/110 H 05/11/23 23:01 86 22 98 05/11/23 23:00 77 23 97 05/11/23 22:50 77 24 100 05/11/23 22:50 144/83 H 05/11/23 22:46 82 19 100 05/11/23 22:46 78 05/11/23 22:31 36.8 C 72 20 148/127 H 96 O2 Del Method O2 Flow Rate 05/12/23 02:58 Nasal Cannula 05/11/23 23:40 05/11/23 23:35 05/11/23 23:20 05/11/23 23:17 05/11/23 23:17 05/11/23 23:10 05/11/23 23:01 05/11/23 23:01 05/11/23 23:00 05/11/23 22:50 05/11/23 22:50 05/11/23 22:46 05/11/23 22:46 05/11/23 22:31 Nasal Cannula 2 Diagnostic Findings Laboratory Results WBC 11.13 K/ul (4.8-10.8) H 05/11/23 22:36 RBC 5.14 M/uL (4.70-6.10) 05/11/23 22:36 Hgb 15.8 g/dl (14.0-18.0) 05/11/23 22:36 Hct 48.9 % (42.0-52.0) 05/11/23 22:36 MCV 95.1 fL (80.0-100.0) 05/11/23 22:36 MCH 30.7 pg (25.0-34.0) 05/11/23 22:36 MCHC 32.3 g/dL (32.0-36.0) 05/11/23 22:36 RDW Std Deviation 55.9 fL (36.4-46.3) H 05/11/23 22:36 RDW Coeff of Cheryl 15.9 % (11.5-14.5) H 05/11/23 22:36 Plt Count 232 K/uL (130-400) 05/11/23 22:36 MPV 10.1 fL (9.4-12.4) 05/11/23 22:36 Immature Gran % (Auto) 0.7 % 05/11/23 22:36 Neut % (Auto) 74.7 % 05/11/23 22:36 Lymph % (Auto) 14.5 % 05/11/23 22:36 Mower % (Auto) 6.3 % 05/11/23 22:36 Eos % (Auto) 3.4 % 05/11/23 22:36 Baso % (Auto) 0.4 % 05/11/23 22:36 Neut # (Auto) 8.31 K/uL (1.40-6.50) H 05/11/23 22:36 Lymph # (Auto) 1.61 K/uL (1.2-3.4) 05/11/23 22:36 Mower # (Auto) 0.70 K/uL (0.11-0.59) H 05/11/23 22:36 Eos # (Auto) 0.38 K/uL (0-0.50) 05/11/23 22:36 Baso # (Auto) 0.05 K/uL (0-0.2) 05/11/23 22:36 Immature Gran # (Auto) 0.08 K/uL (0.01-0.20) 05/11/23 22:36 PT 22.6 Seconds (9.0-12.0) H 05/11/23 22:36 INR 2.2 (0.9-1.1) H 05/11/23 22:36 APTT 38.2 Seconds (21.0-31.0) H 05/11/23 22:36 PTT Ratio 1.4 05/11/23 22:36 VBG pH 7.47 (7.36-7.41) H 05/11/23 22:36 VBG pCO2 45 mmHg (38-50) 05/11/23 22:36 VBG pO2 49 mmHg 05/11/23 22:36 VBG HCO3 33 mmol/L 05/11/23 22:36 VBG O2 Saturation 85.9 % 05/11/23 22:36 VBG Base Excess 8.0 mEq/L 05/11/23 22:36 Sodium 139 mmol/L (136-145) 05/11/23 22:36 Potassium 3.7 mmol/L (3.5-5.1) 05/11/23 22:36 Chloride 103 mmol/L (98-107) 05/11/23 22:36 Carbon Dioxide 29 mmol/L (21-32) 05/11/23 22:36 Anion Gap 7 (3-11) 05/11/23 22:36 BUN 26 mg/dl (6-23) H 05/11/23 22:36 Creatinine 1.50 mg/dl (0.6-1.4) H 05/11/23 22:36 Est Cr Clr Drug Dosing 98.8 ml/min 05/11/23 22:36 Est GFR ( Amer) 59.0 ml/min 05/11/23 22:36 Est GFR (Non-Af Amer) 50.9 ml/min 05/11/23 22:36 BUN/Creatinine Ratio 17.3 (10-20) 05/11/23 22:36 Glucose 105 mg/dl (70-99(Fasting)) H 05/11/23 22:36 POC Glucose 100 mg/dl (70-99) H 05/11/23 22:35 Lactate 1.7 mmol/L (0.4-2.0) 05/11/23 22:36 Calcium 9.4 mg/dl (8.6-10.3) 05/11/23 22:36 Magnesium 1.9 mg/dl (1.7-2.4) 05/11/23 22:36 Total Bilirubin 0.8 mg/dl (0.2-1.0) 05/11/23 22:36 AST 12 U/L (13-39) L 05/11/23 22:36 ALT 8 U/L (7-52) 05/11/23 22:36 Alkaline Phosphatase 55 U/L (34-104) 05/11/23 22:36 Troponin I High Sens 11.6 pg/ml (0-20) 05/11/23 22:36 Total Protein 6.5 gm/dl (6.0-8.3) 05/11/23 22:36 Albumin 3.5 gm/dl (3.4-5.0) 05/11/23 22:36 Globulin 3.0 gm/dl (2.5-4.0) 05/11/23 22:36 Albumin/Globulin Ratio 1.2 (0.9-2) 05/11/23 22:36 Procalcitonin < 0.05 ng/ml (0-0.5) 05/11/23 22:36 Blood Type O Negative 05/11/23 22:36 Antibody Screen NEGATIVE 05/11/23 22:[address] 05/11/23 22:18 CR Exam(s): CT HEAD Without Contrast EXAM: CT Head Without Intravenous Contrast CLINICAL HISTORY: Reason for exam: neuro deficit, acute stroke suspected. TECHNIQUE: Axial computed tomography images of the head/brain without intravenous contrast. CTDI is 38.11 mGy and DLP is 695.44 mGy-cm. Automated exposure control was utilized for the study. A dose lowering technique was utilized adhering to the principles of ALARA. COMPARISON: No relevant prior studies available. FINDINGS: The study is suboptimal secondary to motion artifact. Brain: Unremarkable. No hemorrhage. Moderate nonspecific white matter changes. No edema. Ventricles: Unremarkable. No ventriculomegaly. Bones/joints: Unremarkable. No acute fracture. Soft tissues: Unremarkable. Sinuses: Unremarkable as visualized. No acute sinusitis. Mastoid air cells: Unremarkable as visualized. No mastoid effusion. IMPRESSION: No evidence of acute intracranial pathology. Communications: Call Doctor Stroke Electronically signed by: Janis Riddle MD 05/11/23 23:04 PM ECG Additional Comments: ECG normal sinus rhythm at rate of 81. Left axis deviation. Incomplete right bundle branch block Code Status & VTE Plan VTE Prophylaxis Plan VTE Prophylaxis will be ordered: Yes
[2023-05-12] MEDS ORDERED: PHARMACIST DISCHARGE MED REC CONSULT PRN (04:47)
[2023-05-12] MEDS ORDERED: ALBUTEROL HFA 8 GM INHALER INH PRN (04:47)
[2023-05-12] MEDS ORDERED: NITROGLYCERIN SL 0.4 MG/TAB TAB SL PRN (04:47)
[2023-05-12] MEDS: SODIUM CHLORIDE 0.9% 1,000 ML IV SCH ×2 (06:17→19:00)
--- NOTE | 2023-05-12 07:39 | XRay Report ---
XR chest 1V portable HISTORY: 57 years-old Male hypoxia acute hypoxia COMPARISON: 09/11/2022 TECHNIQUE: AP view of the chest FINDINGS: Cardiac silhouette is enlarged. Mild right hemidiaphragmatic elevation. Linear left basilar airspace opacities. No pneumothorax, pleural effusion or overt pulmonary edema. The bones appear grossly intac t. IMPRESSION: 1. Cardiomegaly without pulmonary edema. 2. Chronic right hemidiaphragmatic elevation. 3. Left basilar opacities suggestive of atelectasis. ACT 112: Negative or not required by law. The above report was generated using voice recognition software. It may contain grammatical, syntax o r spelling errors. Electronically signed by: Mayito Garza M.D. 05/12/2023 7:37 AM
--- NOTE | 2023-05-12 08:30 | Neurology Consultation ---
Date of Consultation May 12, 2023 Assessment & Plan (1) Stroke: Plan 57-year-old right-handed male with probable acute stroke, presenting with persistent dysarthria and incomplete expressive aphasia, without associated hemiparesis, ataxia, vertigo, vision loss, or diplopia. His stroke potentially localizes to the left subinsular region given findings on CT of the head, although a small brainstem stroke is also possible. Tobacco use disorder and morbid obesity are stroke risk factors for this patient. Ideally, a brain MRI should be completed although patient endorses severe claustrophobia and I am uncertain if his weight would exclude him from MRI. CT angiography cannot be performed in light of his stage IV kidney disease, further complicated by allergy to iodinated contrast media. A carotid ultrasound has been ordered, follow-up with results. If necessary, would consult vascular surgery. Follow-up with results of transthoracic echocardiogram, although I see that an echocardiogram completed in August 2022 was technically limited due to patient's body habitus. If a brain MRI cannot be completed, would recommend a repeat noncontrast CT of the head today to evaluate for evolving infarct. May allow for permissive hypertension acutely, systolic blood pressure 140 to 160 mmHg. Long-term blood pressure goal less than 130 over 80 mmHg. Would add aspirin 81 mg/day. He may continue with warfarin in light of his history of DVT. Consider adding a low-dose statin. LDL on lipid panel from this past September was 74, goal LDL less than 70. Consider checking an up-to-date lipid panel. Counseling for tobacco cessation. Consultations with PT/OT/speech therapy. Consider 30-day mobile cardiac outpatient telemetry. Patient should follow-up with his PCP for ongoing monitoring of cardiovascular risk factors. Should not require additional outpatient neurology follow-up. History of Present Illness Reason for Consultation: stroke Requesting Physician: Juancho Attending Physician: Dragan Villatoro MD History of Present Illness The patient is a 57-year-old right-handed male who presented to the emergency department last night with a chief complaint of dysarthria and expressive speech difficulty of acute onset without associated hemiparesis, change in vision, vertigo, or ataxia. History notable for morbid obesity, tobacco use, and prolonged hospitalization in August 2022 and September for ambulatory dysfunction, generalized weakness, and acute kidney injury complicated by severe anemia requiring red blood cell and iron infusions. He is on warfarin for a left brachial DVT. His dysarthria and expressive speech difficulty are persistent this morning. He denies headache, neck stiffness, or fever. I independently reviewed the CT of the head completed at the time of presentation. The study is notable for moderately extensive chronic small vessel ischemic disease with an area of relative increased lucency within the left subinsular region potentially consistent with a subacute, evolving infarct in the context of his presenting signs and symptoms. No prior studies available for comparison. There is no hemorrhage. There are vascular calcifications within the bilateral vertebral arteries which are dolichoectatic. There are calcifications within the bilateral proximal middle cerebral arteries. Electrocardiogram revealed a normal sinus rhythm. Labs reviewed. WBC 11.13, hemoglobin 15.8, hematocrit 48.9, platelet count 232, INR 2.2, sodium 139, potassium 3.7, BUN 26, creatinine 1.50, glucose 105, magnesium 1.9, AST 12, ALT 8, high-sensitivity troponin 11.6. I reviewed his lipid panel from this past J anuary. Triglycerides 200, cholesterol 131, LDL 74, VLDL 40, HDL 17. Allergies Allergy/AdvReac Type Severity Reaction Status Date / Time Iodinated Contrast Media Allergy Hives Verified 05/12/23 00:10 iodine Allergy Hives Verified 05/12/23 00:10 Home Medications Medication Instructions Recorded Confirmed Type verapamil 240 mg 24 hr 240 mg PO QAM 08/29/22 05/12/23 History capsule,extended release carvedilol 12.5 mg tablet 12.5 mg PO BID #60 tabs 10/07/22 05/12/23 Rx torsemide 20 mg tablet 20 mg PO QAM #30 tabs 10/07/22 05/12/23 Rx prednisone 10 mg tablet 10 mg PO UD #75 tabs 10/25/22 05/12/23 Rx albuterol sulfate 90 mcg/actuation 2 puff inhalation Q4 PRN Wheezing 05/12/23 05/12/23 History aerosol inhaler allopurinol 300 mg tablet 300 mg PO DAILY 05/12/23 05/12/23 History ferrous sulfate 325 mg (65 mg 325 mg PO DAILY 05/12/23 05/12/23 History iron) tablet (FeroSul) sildenafil 50 mg tablet 50 mg PO DAILY PRN .. 05/12/23 05/12/23 History warfarin 2 mg tablet 4 mg PO DAILY 05/12/23 05/12/23 History Patient History Medical History CHERYL (acute kidney injury) Anemia CKD (chronic kidney disease) stage 4, GFR 15-29 ml/min DVT (deep venous thrombosis) Eosinophilia Morbid obesity Obesity hypoventilation syndrome Social History Smoking Status: Former smoker Tobacco Type: Cigarettes and E-cigarettes / Vaping Do You Dip or Chew Tobacco: No; Hx Alcohol Use: No Hx Substance Use: No Preferred Language: Gabonese Communication Ability: Effective Biomedical Service Engineer Required: No Beliefs That Will Affect Care: None Current Living Situation: Spouse Other Information That Helps Us Care for You: No Feels Safe at Home: Yes Safety Concerns: Feels Safe At This Time Assistive Devices: Wheelchair Review of Systems Constitutional: + body aches; no fever and no chills Eyes: no blind spots and no diplopia Ear, Nose, Mouth, Throat: no hearing loss Respiratory: no cough and no dyspnea Cardiovascular: no chest pain and no palpitations Gastrointestinal: no nausea and no vomiting Genitourinary: no dysuria Musculoskeletal: + muscle weakness; no neck pain Integumentary: no rash and no lesions Neurologic: as per Subjective / HPI, + generalized weakness and + abnormal speech; no localized weakness, no loss of sensation, no tremor(s) and no headache(s) Psychiatric: no depression and no anxiety Hematologic / Lymphatic: no easy bleeding and no easy bruising Exam (Neuro) Constitutional: well developed and + morbidly obese Eyes: normal visual evans by confrontation, PERRL and EOM intact bilaterally Cardiovascular: Vessels: no carotid bruit Neurologic: Oriented to:: Person, Place and Time Memory: Short Term Intact and Remote Intact Attention: Span Intact and Concentration Intact Speech Fluency: Dysarthria and Dysfluency Speech Aphasia: Aphasia (Incomplete expressive aphasia) Fund of Knowledge: Current Events, Past History and Vocabulary Cranial Nerves: Normal II, III, IV, , V, VII, VIII, IX, X, XI and XII Motor Strength: Weakness Upper Extremities (Mild to moderate generalized weakness) and Weakness Lower Extremities; negative Hemiparesis Motor Tone: Normal Lower Extremities and Normal Upper Extremities Muscle Bulk/Involuntary Movements: No Involuntary Movements; negative Muscle Atrophy Sensation: Light Touch Intact, Pain/Temperature Intact, Vibration Intact and Proprioception Intact Coordination: negative Dysdiadochokinesia, Finger-Nose Abnormal or Heel-Marley Abnormal Deep Tendon Reflexes: Rt Triceps: 2+, Lt Triceps: 2+, Rt Biceps: 2+, Lt Biceps: 2+, Rt Brachioradialis: 2+, Lt Brachioradialis: 2+, Rt Patellar: 2+, Lt Patellar: 2+, Rt Ankle: 2+ and Lt Ankle: 2+ Special Tests: negative Babinski Present Details: Gait cannot be tested. Results & Data Vital Signs (Past 12 Hours) Vital Signs Temp Pulse Pulse Resp BP BP Pulse Ox 05/12/23 05:21 36.8 C 86 20 142/113 H 94 05/12/23 05:00 85 05/12/23 04:00 05/12/23 02:58 86 20 142/113 H 94 05/11/23 23:40 76 23 94 05/11/23 23:35 75 21 93 05/11/23 23:20 79 26 H 97 05/11/23 23:17 80 22 98 05/11/23 23:17 145/101 H 05/11/23 23:10 74 27 H 97 05/11/23 23:01 137/110 H 05/11/23 23:01 86 22 98 05/11/23 23:00 77 23 97 05/11/23 22:50 77 24 100 05/11/23 22:50 144/83 H 05/11/23 22:46 82 19 100 05/11/23 22:46 78 05/11/23 22:31 36.8 C 72 20 148/127 H 96 O2 Del Method O2 Flow Rate 05/12/23 05:21 Nasal Cannula 2 05/12/23 05:00 05/12/23 04:00 Nasal Cannula 2 05/12/23 02:58 Nasal Cannula 05/11/23 23:40 05/11/23 23:35 05/11/23 23:20 05/11/23 23:17 05/11/23 23:17 05/11/23 23:10 05/11/23 23:01 05/11/23 23:01 05/11/23 23:00 05/11/23 22:50 05/11/23 22:50 05/11/23 22:46 05/11/23 22:46 05/11/23 22:31 Nasal Cannula 2 Coding Level of Care Code 80958 INT INP/OBS CARE 255MIN Diagnoses Stroke I63.9
[2023-05-12] MEDS ORDERED: TORSEMIDE 20 MG TAB PO SCH (09:00)
[2023-05-12] MEDS ORDERED: VERAPAMIL HCL 240 MG TABCR PO SCH (09:00)
[2023-05-12] MEDS: FERROUS SULFATE 325 MG TAB PO SCH (09:16)
[2023-05-12] MEDS: predniSONE 10 MG TABLET PO SCH (09:17)
[2023-05-12] MEDS: carvediloL 6.25 MG TAB PO SCH ×2 (09:17→16:18)
[2023-05-12] MEDS: allopurinoL 300 MG TAB PO SCH (09:18)
--- NOTE | 2023-05-12 11:32 | Ultrasound Report ---
US carotid doppler BI CLINICAL HISTORY: 57 years-old Male with cva. Acute strokelike symptoms COMPARISON: None TECHNIQUE: Multiple real time sonographic images of the carotid bifurcations were obtained assessing hillman scale, color Doppler and spectral wave form appearance FINDINGS: RIGHT CAROTID: The peak systolic velocity measured within the right ICA is 56 cm/sec. The end diast olic velocity measured 21 cm/sec. The ICA to CCA ratio measured 0.7 which correlates with a stenosis of 0-50%. LEFT CAROTID: The peak systolic velocity measured within the left ICA is 44 cm/sec. The end diastol ic velocity measured 18 cm/sec. The ICA to CCA ratio measured 1.2 which correlates with a stenosis of 0-50%. Mild atherosclerosis of the carotid bulbs. There is normal antegrade vertebral flow bilaterally. IMPRESSION: 1. Mild atherosclerosis of the carotid bulbs without hemodynamically significant stenosis. 2. Normal antegrade vertebral flow bilaterally. ACT 112: Negative or not required by law. The above report was generated using voice recognition software. It may contain grammatical, syntax o r spelling errors. Electronically signed by: Mayito Garza M.D. 05/12/2023 11:30 AM
--- NOTE | 2023-05-12 11:37 | CT Scan Report ---
CT head/brain wo con CLINICAL HISTORY: 57 years-old Male with follow up cva symptoms. Acute stroke like symptoms TECHNIQUE: Multiple axial CT images of the head were obtained without contrast. A dose lowering tech nique was utilized adhering to the principles of ALARA. CT DOSE: 1499.97 mGy.cm COMPARISON: 05/11/2023 FINDINGS: Motion degraded exam. No acute intracranial hemorrhage, midline shift, intracranial mass, hydrocephal us, territorial ischemia or abnormal extra-axial collection. Involutional changes with chronic microv ascular ischemic disease. The calvarium is intact. The paranasal sinuses, mastoid air cells, and middle ear cavities are clear . IMPRESSION: Motion degraded exam without acute intracranial abnormality identified. ACT 112: Negative or not required by law. The above report was generated using voice recognition software. It may contain grammatical, syntax o r spelling errors. Electronically signed by: Mayito Garza M.D. 05/12/2023 11:35 AM
[2023-05-12 14:26] LABS: Appearance Urine Clear (Clear); Bacteria Urine Automated Negative (Negative); Bilirubin Urine Negative (Negative); Blood Urine Negative (Negative); Color Urine Yellow; Glucose Urine UA Negative (Negative); Ketones Urine Negative (Negative); Leukocyte Esterase Urine Trace (Negative); Nitrite Urine Negative (Negative); Protein Urine Trace (Negative); RBC Urine Automated 0-4 /hpf (0-4); Specific Gravity Urine 1.015 (1.000-1.030); Urobilinogen Urine Negative (Negative)
[2023-05-12 14:52] LABS: Amphetamines+Metham, Urine Neg (Neg); Barbiturates, Urine Neg (Neg); Benzodiazepine, Urine Neg (Neg); Cocaine, Urine Neg (Neg); MDMA (Ecstacy), Urine Neg (Neg); Methadone, Urine Neg (Neg); Opiate, Urine Neg (Neg); Phencyclidine, Urine Neg (Neg)
[2023-05-12] MEDS ORDERED: MICONAZOLE NITRATE POWDER 85 GM EXT PRN (15:11)
[2023-05-12] MEDS: ASPIRIN 81 MG ECTAB PO SCH (16:17)
[2023-05-12] MEDS: WARFARIN SOD 4 MG TAB PO SCH (16:17)
[2023-05-13 00:39] LABS: Base Excess ABG 1.1 mEq/L (-9-1.8); HCO3 ABG 28 mmol/L (19-24); Oxygen Saturation ABG 99.2 % (90-95); PCO2 ABG 55 mmHg (35-46); PO2 ABG 117 mmHg (80-95); pH ABG 7.32 (7.35-7.45)
[2023-05-13 00:45] LABS: Allen Test Pos (Pos)
[2023-05-13 02:02] LABS: Basophils # (auto) 0.04 K/uL (0-0.2); Basophils % (auto) 0.3 %; Eosinophils # (auto) 0.04 K/uL (0-0.50); Eosinophils % (auto) 0.3 %; Hematocrit (blood only) 49.4 % (42.0-52.0); Hemoglobin 15.6 g/dl (14.0-18.0); Immature Granulocytes % (auto) 0.8 %; Lymphocytes # (auto) 1.09 K/uL (1.2-3.4); Lymphocytes % (auto) 8.3 %; Mean Corpuscular Hemoglobin 30.8 pg (25.0-34.0); Mean Corpuscular Hgb Conc 31.6 g/dL (32.0-36.0); Mean Corpuscular Volume 97.4 fL (80.0-100.0); Mean Platelet Volume 10.3 fL (9.4-12.4); Monocytes % (auto) 6.9 %; Neutrophils # (auto) 10.89 K/uL (1.40-6.50); Neutrophils % (auto) 83.4 %; Platelet Count 234 K/uL (130-400); RDW Coefficient of Variation 16.1 % (11.5-14.5); RDW Standard Deviation 58.4 fL (36.4-46.3); Red Blood Count 5.07 M/uL (4.70-6.10); White Blood Count 13.06 K/ul (4.8-10.8)
--- NOTE | 2023-05-13 02:02 | Critical Care Consultation ---
Date of Consultation May 13, 2023 Assessment & Plan (1) Stroke: (2) Chronic anticoagulation: (3) Eosinophilia: (4) DVT (deep venous thrombosis): (5) CKD (chronic kidney disease) stage 4, GFR 15-29 ml/min: (6) Morbid obesity: (7) Weakness: (8) Obesity hypoventilation syndrome: Plan Reason Critically Ill: 57 YOM admitted for stroke like symptoms currently with worsening of aphasia, left sided weakness and tachypnea on BiPAP with concern for respiratory failure. Neuro - CVA/Stroke like symptoms, Aphasia, - Acute on chronic stroke symptoms- with possible extension of stroke vs. hemorrhage vs. uremic encephalopathy or combination - On initial evaluation not moving his left side without coaxing- on arrival to ICU and during transport patient spontaneously moving left arm and left leg - remains aphasic - CT head obtained to rule out hemorrhage - pending read - Maintain permissive HTN - Continue ASA and Warfarin as long as no hemorrhage - MRI would be beneficial- Consider sedating for completion of study if respiratory efforts improve - As stroke symptoms started yesterday and on thrombolytics- not TNK candidate - Neurology consulted- per report no further imaging at this time other than concern for hemorrhage - No Carotid Stenosis - Labs pending Cardiac - HTN, HLD, - Allow for permissive HTN- Hold Verapamil oral- as likely may need some IV meds. 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 increase to 2.61 with minimal output through the day- Plasmalyte @100ml for 1 liter - Hold Torsemide - Nephrology consulted - No acute need - Starks to gravity ENDO - No acute needs - HGB A1C 5.5 range - Goal <180mg/dl- SSI if needed HEME - Hx of Eosinophilia on chronic prednisone, HX of DVT - Follows with Allergy- on steroid taper - Continue Prednisone 30mg daily - DVT on chronic warfarin follow daily INR to goal 2-2.5 ID - No current concern of infectious etiology - Leukocytosis likely secondary to steroid use LINES/IV ACCESS - TEOFILOTereza Continue use of these lines DVT PROPHYLAXIS - SCDS, ASA, Warfarin DISPO: ICU overnight likely to follow respiratory status- patient is full code I have personally spent 45 minutes of critical care time in the direct management of this patient. This is a life/limb threatening event. This includes time spent evaluating patient, direct bedside care, chart review, placing orders, interpretation of diagnostic studies, discussion with consultants, patient, and family members, as well as other required patient management activities. This time is exclusive of all separately billable procedures, and teaching time and separate from and in addition to any other critical care service time. Thank you for allowing us to participate in the care of this patient. Please refer to my attending physician's documentation for any further recommendations. History of Present Illness Reason for Consultation: Decline in mentation status and increase work of breathiing Requesting Physician: Gustavo Dawkins Attending Physician: Dragan Villatoro MD History of Present Illness 57 Morbidly obese male with medical problems of: CVA CKD, Obesity Hypoventilation syndrome, DVT (on Warfarin), Acute on Chronic Respiratory failure, Eosinophilia (on chronic Prednisone). Patient was came to the EMD on 05/11/23 at ~ 2330 as a stroke alert secondary to slurring of speech and some expressive aphasia. He had a head CT performed which was negative for acute process- and CTA of head and neck was deferred secondary to CKD and reported contrast allergy. He was deemed not a thrombolytic candidate secondary to being on Warfarin as well as being supratherapeutic. He was admitted with neurological consultation- and felt potential CVA of the left subinsular region and possibly a brainstem CVA as possibilities. MRI was not performed secondary to claustrophobia and possibly his weight per note review. He has maintained permissive HTN, ASA was initiated in conjunction with warfarin. Carotid Ultrasounds were performed with no ICA stenosis. ECHO was obtained with normal EF and poor evaluation for PFO. Hospitalist was contacted around 0000 on 05/13 for concerns of worsening neurological exam that was reported as worsening aphasia, not moving his left arm or leg, and accessory muscle use with rapid shallow respirations. An ABG was obtained with slightly elevated paCO2 of 55 with PH of 7.32 and hyperoxia on 7L NRB. He was placed on BiPAP and had repeat head CT obtained. Hospitalist did report talking to Neurology tooth cutter pinion with no further imaging recommendations, evaluate head CT for bleed, and transfer to ICU for possible need for intubation. Currently no indication for intubation as he is tolerating his BiPAP and obtaining adequate VT. He can follow commands, and makes grunting answers however does shake his head appropriately yes and no. He follows commands on the right side and minimally on the left following a good amount of encouragement. Pupils are equal and reactive as well as EOMI intact. Awaiting CT results. Follow neurological exams as medically optimized, intubation if required for hypoventilation, hypoxia or inability to protect airway. CODE: FULL Allergies Allergy/AdvReac Type Severity Reaction Status Date / Time Iodinated Contrast Media Allergy Hives Verified 05/12/23 00:10 iodine Allergy Hives Verified 05/12/23 00:10 Home Medications Medication Instructions Recorded Confirmed Type verapamil 240 mg 24 hr 240 mg PO QAM 08/29/22 05/12/23 History capsule,extended release carvedilol 12.5 mg tablet 12.5 mg PO BID #60 tabs 10/07/22 05/12/23 Rx torsemide 20 mg tablet 20 mg PO QAM #30 tabs 10/07/22 05/12/23 Rx prednisone 10 mg tablet 10 mg PO UD #75 tabs 10/25/22 05/12/23 Rx albuterol sulfate 90 mcg/actuation 2 puff inhalation Q4 PRN Wheezing 05/12/23 05/12/23 History aerosol inhaler allopurinol 300 mg tablet 300 mg PO DAILY 05/12/23 05/12/23 History ferrous sulfate 325 mg (65 mg 325 mg PO DAILY 05/12/23 05/12/23 History iron) tablet (FeroSul) sildenafil 50 mg tablet 50 mg PO DAILY PRN .. 05/12/23 05/12/23 History warfarin 2 mg tablet 4 mg PO DAILY 05/12/23 05/12/23 History Patient History Medical History CHERYL (acute kidney injury) Anemia CKD (chronic kidney disease) stage 4, GFR 15-29 ml/min DVT (deep venous thrombosis) Eosinophilia Morbid obesity Obesity hypoventilation syndrome Social History Smoking Status: Former smoker Tobacco Type: Cigarettes and E-cigarettes / Vaping Do You Dip or Chew Tobacco: No; Hx Alcohol Use: No Hx Substance Use: No Preferred Language: Lithuanian Communication Ability: Effective Carbide Tool Maker Required: No Beliefs That Will Affect Care: None Current Living Situation: Spouse Other Information That Helps Us Care for You: No Feels Safe at Home: Yes Safety Concerns: Feels Safe At This Time Assistive Devices: Wheelchair Review of Systems Review of Systems: REVIEW OF SYSTEMS: Unable to complete secondary to aphasia Physical Exam Physical Exam: PHYSICAL EXAM: General: awake, alert, tachypneic Head: Normocephalic, atraumatic Neuro: AAO x person spontaneously awake, PEERLA, EOMI, no nystagmus, incomprehensible grunts for speech, follows commands, strength intact RIGHT bilaterally 4/5, Left 2-3/5 upper and lower extremities, withdraws to pain appropriately and normal Babinski reflex Chest: equal rise and fall of the chest, abdominal breathing, difficult lung exam secondary to body habitus, VT on BiPAP 600s. Cardiac: Regular rate and rhythm, telemetry reviewed- NSR, skin warm dry, cap refill <3 seconds, peripheral pusles +2 no JVD, no murmur, no JVD, no edema GI: NABS x 4 quadrants, soft, nontender to palpation, no rebound, guarding or tenderness : Spontaneously voiding, no pain, no CVA tenderness, Psych: RAJESH Skin: no rash or erythema Results & Data Results & Data Vital Signs (Past 12 Hours) Vital Signs Temp Pulse Pulse Resp BP Pulse Ox O2 Del Method 05/13/23 00:00 69 05/12/23 23:15 36.7 C 72 22 165/102 H 96 Room Air 05/13/23 00:51 85 21 95 05/13/23 00:00 Oxymask 05/12/23 20:13 36.7 C 77 20 151/98 H 96 Oxymask 05/12/23 15:57 36.4 C L 65 22 141/93 H 96 Nasal Cannula 05/12/23 15:46 59 L O2 Flow Rate 05/13/23 00:00 05/12/23 23:15 05/13/23 00:51 4 05/13/23 00:00 7 05/12/23 20:13 7 05/12/23 15:57 3 05/12/23 15:46 Laboratory Results Abnormal lab results 05/11/23 05/12/23 05/13/23 Range/Units 22:33 14:16 00:31 WBC (4.8-10.8) K/ul MCHC (32.0-36.0) g/dL RDW Std Deviation (36.4-46.3) fL RDW Coeff of Cheryl (11.5-14.5) % Neut # (Auto) (1.40-6.50) K/uL Lymph # (Auto) (1.2-3.4) K/uL [place] # (Auto) (0.11-0.59) K/uL PT (9.0-12.0) Seconds POC INR 2.3 H (0.9-1.1) INR (0.9-1.1) ABG pH 7.32 L (7.35-7.45) ABG pCO2 55 H (35-46) mmHg ABG pO2 117 H (80-95) mmHg ABG HCO3 28 H (19-24) mmol/L ABG O2 Saturation 99.2 H (90-95) % BUN (6-23) mg/dl Creatinine (0.6-1.4) mg/dl Glucose (70-99(Fasting)) mg/dl AST (13-39) U/L Triglycerides (0-150) mg/dl Cholesterol (0-200) mg/dl VLDL Cholesterol, Calc (0-30) mg/dl Cholesterol/HDL Ratio (0-5) Urine Protein Trace H (Negative) Ur Leukocyte Esterase Trace H (Negative) U Hyaline Cast (Auto) 5-10 H (0-5) /lpf U Epithel Cells (Auto) 5-10 H (0-5) /lpf 05/13/23 05/13/23 05/13/23 Range/Units 01:41 01:41 01:41 WBC 13.06 H (4.8-10.8) K/ul MCHC 31.6 L (32.0-36.0) g/dL RDW Std Deviation 58.4 H (36.4-46.3) fL RDW Coeff of Cheryl 16.1 H (11.5-14.5) % Neut # (Auto) 10.89 H (1.40-6.50) K/uL Lymph # (Auto) 1.09 L (1.2-3.4) K/uL [place] # (Auto) 0.90 H (0.11-0.59) K/uL PT 20.3 H (9.0-12.0) Seconds POC INR (0.9-1.1) INR 1.9 H (0.9-1.1) ABG pH (7.35-7.45) ABG pCO2 (35-46) mmHg ABG pO2 (80-95) mmHg ABG HCO3 (19-24) mmol/L ABG O2 Saturation (90-95) % BUN 38 H (6-23) mg/dl Creatinine 2.61 H D (0.6-1.4) mg/dl Glucose 103 H (70-99(Fasting)) mg/dl AST 9 L (13-39) U/L Triglycerides 173 H (0-150) mg/dl Cholesterol 281 H (0-200) mg/dl VLDL Cholesterol, Calc 35 H (0-30) mg/dl Cholesterol/HDL Ratio 7.0 H (0-5) Urine Protein (Negative) Ur Leukocyte Esterase (Negative) U Hyaline Cast (Auto) (0-5) /lpf U Epithel Cells (Auto) (0-5) /lpf Diagnostic Findings Chest X-Ray 05/11/23 22:38 XR chest 1V portable HISTORY: 57 years-old Male hypoxia acute hypoxia COMPARISON: 09/11/2022 TECHNIQUE: AP view of the chest FINDINGS: Cardiac silhouette is enlarged. Mild right hemidiaphragmatic elevation. Linear left basilar airspace opacities. No pneumothorax, pleural effusion or overt pulmonary edema. The bones appear grossly intact. IMPRESSION: 1. Cardiomegaly without pulmonary edema. 2. Chronic right hemidiaphragmatic elevation. 3. Left basilar opacities suggestive of atelectasis. ACT 112: Negative or not required by law. The above report was generated using voice recognition software. It may contain grammatical, syntax or spelling errors. Electronically signed by: Mayito Garza M.D. 05/12/2023 7:37 AM Carotid Doppler Study 05/12/23 04:47 US carotid doppler BI CLINICAL HISTORY: 57 years-old Male with cva. Acute strokelike symptoms COMPARISON: None TECHNIQUE: Multiple real time sonographic images of the carotid bifurcations were obtained assessing hillman scale, color Doppler and spectral wave form appearance FINDINGS: RIGHT CAROTID: The peak systolic velocity measured within the right ICA is 56 cm/sec. The end diastolic velocity measured 21 cm/sec. The ICA to CCA ratio measured 0.7 which correlates with a stenosis of 0-50%. LEFT CAROTID: The peak systolic velocity measured within the left ICA is 44 cm/sec. The end diastolic velocity measured 18 cm/sec. The ICA to CCA ratio measured 1.2 which correlates with a stenosis of 0-50%. Mild atherosclerosis of the carotid bulbs. There is normal antegrade vertebral flow bilaterally. IMPRESSION: 1. Mild atherosclerosis of the carotid bulbs without hemodynamically significant stenosis. 2. Normal antegrade vertebral flow bilaterally. ACT 112: Negative or not required by law. The above report was generated using voice recognition software. It may contain grammatical, syntax or spelling errors. Electronically signed by: Mayito Garza M.D. 05/12/2023 11:[address] 05/12/23 09:16 CT head/brain wo con CLINICAL HISTORY: 57 years-old Male with follow up cva symptoms. Acute stroke like symptoms TECHNIQUE: Multiple axial CT images of the head were obtained without contrast. A dose lowering technique was utilized adhering to the principles of ALARA. CT DOSE: 1499.97 mGy.cm COMPARISON: 05/11/2023 FINDINGS: Motion degraded exam. No acute intracranial hemorrhage, midline shift, intracranial mass, hydrocephalus, territorial ischemia or abnormal extra-axial collection. Involutional changes with chronic microvascular ischemic disease. The calvarium is intact. The paranasal sinuses, mastoid air cells, and middle ear cavities are clear. IMPRESSION: Motion degraded exam without acute intracranial abnormality identified. ACT 112: Negative or not required by law. The above report was generated using voice recognition software. It may contain grammatical, syntax or spelling errors. Electronically signed by: Mayito Garza M.D. 05/12/2023 11:35 AM Exam(s): CT HEAD Without Contrast EXAM: CT Head Without Intravenous Contrast CLINICAL HISTORY: Reason for exam: ams. TECHNIQUE: Axial computed tomography images of the head/brain without intravenous contrast. Automated exposure control was utilized for the study. A dose lowering technique was utilized adhering to the principles of ALARA. COMPARISON: Comparison made to prior head CT from May 12, 2023. FINDINGS: The study is suboptimal secondary to motion artifact. Brain: Unremarkable. No hemorrhage. Moderate nonspecific white matter changes. No edema. Ventricles: Unremarkable. No ventriculomegaly. Bones/joints: Unremarkable. No acute fracture. Soft tissues: Findings concerning for thyroid ophthalmopathy, which can be seen in the setting of Graves' disease. Sinuses: Unremarkable as visualized. No acute sinusitis. Mastoid air cells: Unremarkable as visualized. No mastoid effusion. IMPRESSION: No evidence of acute intracranial pathology. Electronically signed by: Janis Riddle MD 05/13/23 04:13 AM Dictated:05/13/23412 Transcribed: 05/13/23412 Medications Administered Home Medications verapamil 240 mg 24 hr capsule,extended release 240 mg PO QAM 08/29/22 [History Confirmed 05/12/23] carvedilol 12.5 mg tablet 12.5 mg PO BID #60 tabs 10/07/22 [Rx Confirmed 05/12/23] torsemide 20 mg tablet 20 mg PO QAM #30 tabs 10/07/22 [Rx Confirmed 05/12/23] prednisone 10 mg tablet 10 mg PO UD #75 tabs 10/25/22 [Rx Confirmed 05/12/23] albuterol sulfate 90 mcg/actuation aerosol inhaler 2 puff inhalation Q4 PRN Wheezing 05/12/23 [History Confirmed 05/12/23] allopurinol 300 mg tablet 300 mg PO DAILY 05/12/23 [History Confirmed 05/12/23] ferrous sulfate 325 mg (65 mg iron) tablet (FeroSul) 325 mg PO DAILY 05/12/23 [History Confirmed 05/12/23] sildenafil 50 mg tablet 50 mg PO DAILY PRN .. 05/12/23 [History Confirmed 05/12/23] warfarin 2 mg tablet 4 mg PO DAILY 05/12/23 [History Confirmed 05/12/23] Active Medications Albuterol (Albuterol Hfa 8 Gm Inhaler) 2 puffs INH Q4 PRN PRN Reason: Wheezing Stop: 06/11/23 04:46 Allopurinol (Allopurinol 300 Mg Tab) 300 mg PO DAILY STACY Stop: 06/11/23 08:59 Last Admin: 05/12/23 09:18 Dose: 300 mg Aspirin (Aspirin 81 Mg Ectab) [facility] Stop: 06/11/23 12:59 Last Admin: 05/12/23 16:17 Dose: 81 mg Atorvastatin Calcium (Atorvastatin 40 Mg Tab) 40 mg PO QAM [facility] Stop: 06/12/23 08:59 Carvedilol (Carvedilol 6.25 Mg Tab) 6.25 mg PO BIDM [facility] Stop: 06/11/23 07:59 Last Admin: 05/12/23 16:18 Dose: 6.25 mg Ferrous Sulfate (Ferrous Sulfate 325 Mg Tab) 325 mg PO DAILY [facility] Stop: 06/11/23 08:59 Last Admin: 05/12/23 09:16 Dose: 325 mg Miconazole Nitrate (Miconazole Nitrate Powder 85 Gm) 1 appln EXT PRN PRN PRN Reason: Affected Skin Folds Stop: 06/11/23 15:10 Miscellaneous Information (Pharmacist Discharge Med Rec Consult) 1 each N/A UD PRN PRN Reason: Consult Stop: 06/11/23 04:46 Nitroglycerin (Nitroglycerin Sl 0.4 Mg/Tab Tab) 0.4 mg SL Q5M PRN PRN Reason: Chest Pain Stop: 06/11/23 04:46 Prednisone (Prednisone 10 Mg Tablet) 30 mg PO DAILY [facility] Stop: 06/11/23 08:59 Last Admin: 05/12/23 09:17 Dose: 30 mg Torsemide (Torsemide 20 Mg Tab) [facility] [place] Stop: 06/11/23 08:59 Last Admin: 05/12/23 09:16 Dose: 20 mg Verapamil HCl (Verapamil Hcl 240 Mg Tabcr) 240 mg PO [facility] Stop: 06/11/23 08:59 Last Admin: 05/12/23 09:17 Dose: 240 mg Warfarin Sodium (Warfarin Sod 4 Mg Tab) 4 mg PO DAILY@1600 [facility] Stop: 06/11/23 15:59 Last Admin: 05/12/23 16:17 Dose: 4 mg Coding Level of Care Code 82443 CRITICAL CARE 1ST 30-74M Diagnoses Stroke I63.9 Chronic anticoagulation Z79.01 Eosinophilia D72.19 DVT (deep venous thrombosis) I82.409 CKD (chronic kidney disease) stage 4, GFR 15-29 ml/min N18.4 Morbid obesity E66.01 Weakness R53.1 Obesity hypoventilation syndrome E66.2
[2023-05-13 02:34] LABS: Albumin Globulin Ratio 1.1 (0.9-2); Albumin Level 3.6 gm/dl (3.4-5.0); BUN Creatinine Ratio 14.6 (10-20); Bilirubin,Total 0.7 mg/dl (0.2-1.0); Calcium 9.5 mg/dl (8.6-10.3); Creatinine Clr Calc Pharmacy 56.8 ml/min; Est GFR (African American) 30.2 ml/min; Est GFR (Non-African American) 26.1 ml/min; Globulin 3.3 gm/dl (2.5-4.0); INR 1.9 (0.9-1.1); Magnesium 2.1 mg/dl (1.7-2.4); Potassium 4.7 mmol/L (3.5-5.1); Prothrombin Time 20.3 Seconds (9.0-12.0); Total Protein 6.9 gm/dl (6.0-8.3); Troponin I High Sensitivity 12.4 pg/ml (0-20)
[2023-05-13] MEDS ORDERED: LABETALOL HCL IV 5 MG/ML 20ML IV STA (03:01)
[2023-05-13] MEDS ORDERED: LABETALOL HCL IV 5 MG/ML 20ML IV ONE (03:01)
[2023-05-13] MEDS ORDERED: PLASMA-LYTE A 1,000 ML IV SCH (03:45)
[2023-05-13 04:10] LABS: Estimated Average Glucose 128 mg/dl; Hemoglobin A1C 6.1 % (4.5-5.6)
--- NOTE | 2023-05-13 04:14 | CT Scan Report ---
Exam(s): CT HEAD Without Contrast EXAM: CT Head Without Intravenous Contrast CLINICAL HISTORY: Reason for exam: ams. TECHNIQUE: Axial computed tomography images of the head/brain without intravenous contrast. Automated exposure control was utilized for the study. A dose lowering technique was utilized adhering to the principles of ALARA. COMPARISON: Comparison made to prior head CT from May 12, 2023. FINDINGS: The study is suboptimal secondary to motion artifact. Brain: Unremarkable. No hemorrhage. Moderate nonspecific white matter changes. No edema. Ventricles: Unremarkable. No ventriculomegaly. Bones/joints: Unremarkable. No acute fracture. Soft tissues: Findings concerning for thyroid ophthalmopathy, which can be seen in the setting of Graves' disease. Sinuses: Unremarkable as visualized. No acute sinusitis. Mastoid air cells: Unremarkable as visualized. No mastoid effusion. IMPRESSION: No evidence of acute intracranial pathology. Electronically signed by: Janis Riddle MD 05/13/23 04:13 AM
--- NOTE | 2023-05-13 07:18 | Communication Note ---
Date of Service: May 13, 2023 Around midnight bret was confused and was having labored breathing. He opens eyes but not answering. Stat abg and stat ct chest ordered.Squeeze hand on command.Able to wiggle right toes , left toes somewhat difficult to wiggle. abg was not bad ph 7.32 and co2 55. Then he was belly breathing. cxr looked ok. Placed on bipap.d/w ICU and neurology and transferred to ICU for close monitor. CT head came back no acute findings. Called and left voice mail .Notified am providers.
--- NOTE | 2023-05-13 07:38 | XRay Report ---
XR chest 1V portable HISTORY: Shortness of breath. COMPARISON: Chest 05/11/2023. FINDINGS: There are low lung volumes. No pneumothorax. No pleural effusions. Left basilar linear dens ities favor scarring or subsegmental atelectasis. No new focal lung consolidations. No evidence for p ulmonary edema. This is similar to the prior study. There is mild elevation of the right hemidiaphrag m, unchanged. IMPRESSION: No significant change compared to the prior study. No acute process. Low lung volumes and cardiomegal y again noted. ACT 112: Negative or not required by law. Electronically signed by: Abdirashid Garcia M.D. 05/13/2023 7:35 AM
[2023-05-13] MEDS: carvediloL 6.25 MG TAB PO SCH ×2 (08:35→16:02)
[2023-05-13] MEDS: allopurinoL 300 MG TAB PO SCH (08:35)
[2023-05-13] MEDS: ATORVASTATIN 40 MG TAB PO SCH (08:36)
[2023-05-13] MEDS: ASPIRIN 81 MG ECTAB PO SCH (08:36)
[2023-05-13] MEDS: FERROUS SULFATE 325 MG TAB PO SCH (08:36)
[2023-05-13] MEDS: predniSONE 10 MG TABLET PO SCH (08:36)
--- NOTE | 2023-05-13 08:47 | Nephrology Consultation ---
Date of Consultation May 13, 2023 Assessment & Plan (1) CHERYL (acute kidney injury): baseline creatinine 1.7-1.9 in pt quite prone to CHERYL based on previous admissions' renal profile. now w/ creatinine 2.6 in the wake of IV contrast and ongoing torsemide. no hemodynamic instability. admission UA unremarkable for inflammation; no eosinophilia currently or as of spring. serum chemistries acceptable; mild respiratory acidosis addressed w/ bipap. he has made nearly a liter of urine today; and is on his 3rd L of IVF. 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 (2) CKD (chronic kidney disease) stage 3, GFR 30-59 ml/min: baseline creatinine 1.7-1.9 as OP in 2022 > follows w/ Dr Agee (3) Stroke: per primary service and neuro (4) Bedbound: -for about 18 months now for clinically unclear reasons; curious if neurology may have insight/recommend further w/u once acute stroke issue stabilized History of Present Illness Reason for Consultation: CHERYL on CKD Requesting Physician: Dr Dubon Attending Physician: Dragan Villatoro MD History of Present Illness 57 y/o M whom I'm asked to see for CHERYL on CKD was admitted overnight on the night of 05/12 for stroke like symptoms including aphasia. 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 Significant generalized weakness for unclear reasons and bed bound literally since November 2021. he had 2 extended admissions here late last year/early this year for generalized weakness, inability to be cared for at home (though ultimately d/c home and has been there ever since)> w/ these had worsening respiratory status and volume overload needing aggressive diuresis. he had repeated CHERYL episodes and unknown baseline creatinine ([place]). at those hospital courses, he was ultimately diagnosed w/ CKD 4; however renal function has improved since d/c and he is on outpatient labs in 2022 more a CKD 3B w/ baseline creatinine 1.7-1.9, most recently 05/02/23. Follows w/ Dr Agee in CKD clinic. 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 Cause of his severe generalized weakness lasting months has never been established > had been question of inflammatory process in past maintained on plaquenil previously, ? dx in past of rheumatoid arthritis. Also had several challenges w/ anemia during extended admissions early this year needing 6 units pRBC and IV iron; bidire ctional endoscopy showed no GI bleeding source. he presented at about 2330 on 05/11 w/ expressive aphasia and slurred speech. not a thrombolytic candidate. Diagnosed w/ possible L subinsular and possibly brainstem sroke based on CTA head/neck. MRI not feasible d/t wt and anxiety. About 30 minutes later pt noted to have worsening aphasia, not moving L side, acute respiratory failure needing BiPAP. Again overnight he decompensated w/ worsening aphasia and respiratory failure and moved to ICU for closer monitoring. His creatinine on presentation was 1.5; it increased to 2.6 w/ decreased UOP yesterday per report (crenshaw placed today and w/ 825 mL UOP; however only 75 mL uop ON and 40-50 mL [id number]). as an OP he takes torsemide 20 mg daily which he did receive yesterday AM. Also had 2L NS yesterday. 10 mg daily prednisone increased to 30 mg daily. Not taking much po and nothing po today d/t MS/stroke concerns. overnight Torsemide was stopped and he is receiving 100 mL hourly maria elena smalyte. Currently in ICU on bipap. Neurology following and recommends permissive hypertension target 140-160 SBP acutely; added ASA; and in lieu of MRI which was not clinically feasible he did repeat head CT which did not show evolving infarct. Pt is arouseable and can grunt, shake head Y/N to 2-3 questions. does tell me he hurts; can't say where. denies sob. rest of ros unobtainable d/t MS. Allergies Allergy/AdvReac Type Severity Reaction Status Date / Time Iodinated Contrast Media Allergy Hives Verified 05/12/23 00:10 iodine Allergy Hives Verified 05/12/23 00:10 Home Medications Medication Instructions Recorded Confirmed Type verapamil 240 mg 24 hr 240 mg PO QAM 08/29/22 05/12/23 History capsule,extended release carvedilol 12.5 mg tablet 12.5 mg PO BID #60 tabs 10/07/22 05/12/23 Rx torsemide 20 mg tablet 20 mg PO QAM #30 tabs 10/07/22 05/12/23 Rx prednisone 10 mg tablet 10 mg PO UD #75 tabs 10/25/22 05/12/23 Rx albuterol sulfate 90 mcg/actuation 2 puff inhalation Q4 PRN Wheezing 05/12/23 05/12/23 History aerosol inhaler allopurinol 300 mg tablet 300 mg PO DAILY 05/12/23 05/12/23 History ferrous sulfate 325 mg (65 mg 325 mg PO DAILY 05/12/23 05/12/23 History iron) tablet (FeroSul) sildenafil 50 mg tablet 50 mg PO DAILY PRN .. 05/12/23 05/12/23 History warfarin 2 mg tablet 4 mg PO DAILY 05/12/23 05/12/23 History Patient History Medical History (Updated 05/13/23 @ 09:15 by Nina Richards MD, PhD) CHERYL (acute kidney injury) recurrent Anemia Bedbound since 11/2021 for unclear causes CKD (chronic kidney disease) stage 3, GFR 30-59 ml/min DVT (deep venous thrombosis) Gout Morbid obesity Obesity hypoventilation syndrome Social History Smoking Status: Former smoker Tobacco Type: Cigarettes and E-cigarettes / Vaping Do You Dip or Chew Tobacco: No; Hx Alcohol Use: No Hx Substance Use: No Preferred Language: Romansh Communication Ability: Effective Seafood Processor Required: No Beliefs That Will Affect Care: None Current Living Situation: Spouse Other Information That Helps Us Care for You: No Feels Safe at Home: Yes Safety Concerns: Feels Safe At This Time Assistive Devices: Wheelchair Review of Systems Review of Systems: Unobtainable due to reduced consciousness Physical Exam Constitutional: well developed, well nourished, + morbidly obese, + altered mental status, + behavioral limitations, + physical limitations and + lethargic; no acute distress Eyes: EOM intact bilaterally ENMT: Ears: no external ear abnormality Nose: no external nose abnormality Mouth: + dry oral mucous membranes Neck: no nuchal rigidity Respiratory: normal respiratory effort Auscultation: + diminished lung sounds Cardiovascular: Rate/Rhythm: regular rhythm and + tachycardic Extremities: no edema Gastrointestinal (Abdomen): Inspection/Auscultation: normal bowel sounds Percussion/Palpation: abdomen soft; abdomen nontender Musculoskeletal: Extremities: + abnormal strength Skin: no rashes, warm and dry Neurologic: does not move extremities, as above limited speech, no tremor Results & Data Vital Signs (Past 12 Hours) Vital Signs Temp Pulse Pulse Resp BP BP Pulse Ox 05/13/23 08:21 85 20 96 05/13/23 06:24 149/98 H 05/13/23 06:24 90 26 H 95 05/13/23 06:00 80 20 96 05/13/23 05:01 177/101 H 05/13/23 05:01 78 20 95 05/13/23 05:00 77 19 99 05/13/23 04:07 73 19 141/98 H 100 05/13/23 04:07 78 20 93 05/13/23 04:00 71 19 96 05/13/23 03:15 75 22 96 05/13/23 03:12 149/102 H 05/13/23 03:12 76 24 05/13/23 03:00 84 22 100 05/13/23 02:59 183/120 H 05/13/23 02:59 85 21 98 05/13/23 02:55 80 23 100 05/13/23 02:55 180/126 H 05/13/23 02:40 77 100 05/13/23 03:35 05/13/23 03:26 05/13/23 03:18 72 149/102 H 05/13/23 03:03 85 183/120 H 05/13/23 02:52 89 30 H 97 05/13/23 00:00 69 05/12/23 23:15 36.7 C 72 22 165/102 H 96 05/13/23 00:51 85 21 95 05/13/23 00:00 Pulse Ox O2 Del Method O2 Del Method O2 Flow Rate O2 Flow Rate FiO2 05/13/23 08:21 40 05/13/23 06:24 05/13/23 06:24 05/13/23 06:00 05/13/23 05:01 05/13/23 05:01 05/13/23 05:00 05/13/23 04:07 BiPAP 05/13/23 04:07 05/13/23 04:00 05/13/23 03:15 BiPAP 40 05/13/23 03:12 05/13/23 03:12 05/13/23 03:00 BiPAP 05/13/23 02:59 05/13/23 02:59 05/13/23 02:55 05/13/23 02:55 05/13/23 02:40 05/13/23 03:35 BiPAP 40 05/13/23 03:26 97 BiPAP 98 05/13/23 03:18 05/13/23 03:03 05/13/23 02:52 05/13/23 00:00 05/12/23 23:15 Room Air 05/13/23 00:51 4 05/13/23 00:00 Oxymask 7 Laboratory Results 05/13/23 01:41 05/13/23 01:[address], CXR reviewed
--- NOTE | 2023-05-13 09:48 | Neurology Progress Note ---
Date of Service May 13, 2023 Assessment & Plan (1) Stroke: Plan 57-year-old male presenting with dysarthria, incomplete expressive aphasia, without hemiparesis, ataxia, vertigo, vision loss or diplopia, probable acute stroke localizing to either the left cerebral hemisphere or brainstem. Overnight, he developed respiratory distress and left hemiparesis. A follow-up CT of the head was negative for hemorrhage or obvious signs of evolving infarct. I would recommend a noncontrast brain MRI to evaluate for acute stroke. Severe claustrophobia and morbid obesity potential limiting factors. MRI can be completed when he can tolerate holding BiPAP. Agree with addition of aspirin and atorvastatin, he may continue with warfarin. Continue to allow for permissive hypertension, systolic blood pressure 140 to 160 mmHg. See my consultation report from yesterday for additional details. Admission and Anticipated Discharge Date Admission Date: May 12, 2023 Subjective Follow-up for stroke The patient is a 57-year-old male who had presented to the hospital 2 days ago with dysarthria, aphasia, without associated hemiparesis, or ataxia. His prese ntation was concerning for acute stroke potentially localizing to the left cerebral hemisphere or possibly brainstem. History notable for tobacco use, morbid obesity, stage IV kidney disease, and allergy to iodinated contrast media. Initial CT of the head was negative for obvious acute process but did reveal chronic small vessel ischemic disease. A carotid ultrasound revealed mild atherosclerosis of the carotid bulbs without hemodynamically significant stenosis and antegrade vertebral flow bilaterally. A follow-up CT of the head was negative for hemorrhage or obvious evolving infarct. His systolic blood pressure has been running from 140 to 180 mmHg in the context of permissive hypertension. He had an episode of labored breathing, altered mental status and left-sided weakness last night around midnight. An urgent CT of the head was completed which was negative for hemorrhage or obvious signs of evolving infarct. The study was suboptimal due to motion artifact. I did independently review these images. He was transferred to the intensive care unit for further monitoring. He is currently resting comfortably, on BiPAP. He is somnolent and exhibits generalized weakness, left greater than right at this time. Review of Systems Review of Systems: Unobtainable due to reduced consciousness Results & Data Vital Signs (Past 12 Hours) Vital Signs Temp Pulse Pulse Resp BP BP Pulse Ox 05/13/23 08:21 85 20 96 05/13/23 06:24 149/98 H 05/13/23 06:24 90 26 H 95 05/13/23 06:00 80 20 96 05/13/23 05:01 177/101 H 05/13/23 05:01 78 20 95 05/13/23 05:00 77 19 99 05/13/23 04:07 73 19 141/98 H 100 05/13/23 04:07 78 20 93 05/13/23 04:00 71 19 96 05/13/23 03:15 75 22 96 05/13/23 03:12 149/102 H 05/13/23 03:12 76 24 05/13/23 03:00 84 22 100 05/13/23 02:59 183/120 H 05/13/23 02:59 85 21 98 05/13/23 02:55 80 23 100 05/13/23 02:55 180/126 H 05/13/23 02:40 77 100 05/13/23 03:35 05/13/23 03:26 05/13/23 03:18 72 149/102 H 05/13/23 03:03 85 183/120 H 05/13/23 02:52 89 30 H 97 05/13/23 00:00 69 05/12/23 23:15 36.7 C 72 22 165/102 H 96 05/13/23 00:51 85 21 95 05/13/23 00:00 Pulse Ox O2 Del Method O2 Del Method O2 Flow Rate O2 Flow Rate FiO2 05/13/23 08:21 40 05/13/23 06:24 05/13/23 06:24 05/13/23 06:00 05/13/23 05:01 05/13/23 05:01 05/13/23 05:00 05/13/23 04:07 BiPAP 05/13/23 04:07 05/13/23 04:00 05/13/23 03:15 BiPAP 40 05/13/23 03:12 05/13/23 03:12 05/13/23 03:00 BiPAP 05/13/23 02:59 05/13/23 02:59 05/13/23 02:55 05/13/23 02:55 05/13/23 02:40 05/13/23 03:35 BiPAP 40 05/13/23 03:26 97 BiPAP 98 05/13/23 03:18 05/13/23 03:03 05/13/23 02:52 05/13/23 00:00 05/12/23 23:15 Room Air 05/13/23 00:51 4 05/13/23 00:00 Oxymask 7 Laboratory Results WBC 13.06, hemoglobin 15.6, hematocrit 49.4, platelet count 234, INR 1.9, sodium 137, potassium 4.7, BUN 38, creatinine 2.61, glucose 103, magnesium 2.1, triglycerides 173, cholesterol 281, LDL 206, VLDL 35, HDL 40 Diagnostic Findings An echocardiogram completed yesterday was technically limited, EF 60 to 65%, moderate concentric left ventricular hypertrophy, left atrial size normal, nondiagnostic bubble study. Exam (Neuro) Constitutional: well developed and well nourished Neurologic: Attention: Other (Patient does open eyes to voice, follows simple commands.); negative Span Intact or Concentration Intact Speech Fluency: Dysarthria, Dysfluency and Other Cranial Nerves: Normal II, III, IV, , V, VII and VIII Motor Strength: Hemiparesis Laterality: Left; negative Normal Lower Extremities or Normal Upper Extremities Motor Tone: Normal Lower Extremities and Normal Upper Extremities Coding Level of Care Code 24980 SUB INP/OBS CARE MIN Diagnoses Stroke I63.9
[2023-05-13] MEDS ORDERED: LABETALOL HCL IV 5 MG/ML 20ML IV PRN (12:25)
--- NOTE | 2023-05-13 13:00 | Hospitalist Progress Note ---
Date of Service May 13, 2023 Assessment & Plan (1) Slurring of speech: Plan: This is a 57 yo M w/ hypertension,HLD, morbid obesity, chronic diastolic CHF, and ambulatory dysfunction currently wheelchair-bound hx of gout, rheumatoid arthritis, tobacco abuse,chronic back pain, medication non compliance, chronic kidney disease, morbid obesity, obesity hypoventilation syndrome, history of DVT on Coumadin currently living at home is brought in because of strokelike symptoms since around 5 PM he noticed to have slurred speech. Strokelike symptoms Slurred speech CT head in ER - negative CTA head and neck not done because of history of significant CHERYL in the recent past Patient on Coumadin and INR therapeutic TNK was not given because of INR therapeutic Patient states he is severely claustrophobic for MRI scan monitor on telemetry, neurochecks per protocol Speech evaluation and PT OT evaluation Permissive hypertension N.p.o. for now, gentle fluids Echocardiogram ordered and carotid Doppler 05/12 CT head repeat - negative Added aspirin 81 and statin pt is already on coumadin a1c 6.1% LDL 206 Neurology consulted and following - ideally would obtain MRI of brain Overnight pt confused and with labored breathing. Possibly w/ more weakness. pt refused bipap during the day. He was transferred to ICU and currently on bipap Hypertension On Coreg and verapamil Reduced Coreg dose to 6.25 for now to allow permissive hypertension We will monitor care per ICU History DVT On warfarin INR therapeutic We will follow PT/INR Chronically kidney disease Creatinine 1.5 on admission- improved from previous Cr worsened now and nephrology consulted We will follow labs history of gout Allopurinol Rheumatoid arthritis Says currently on prednisone 30 mg daily seems to be on tapering dose Looks like he was on 5 to 10 mg daily in the past Morbid obesity Obesity hypoventilation syndrome Not using BiPAP Oxygen VBG ok on admission Now on bipap in icu Chronic diastolic CHF On torsemide monitor for volume overload nephrology also following at this time History of anemia On iron supplements Hemoglobin stable DVT prophylaxis on Coumadin Disposition - ICU Full code Admission and Anticipated Discharge Date Admission Date: May 12, 2023 Subjective Pt seen in follow up of stroke-like symptoms Transferred to ICU overnight - as pt confused and breathing labored. Pt refused bipap during the day. He opened his eyes but was not able to answer. also, poss. incr. weakness - pls see vending service technician note for more detail CT head repeated on 05/12 twice - and negative Currently on bipap When asked questions - he is able to nod. shake his head no. Denies abdominal pain or chest pain. Does not seem to have a headache. He has chronic joint pain. He is following commands/ seems as he is trying to. very minimal movements of his extremities, 2 RNs at the bedside with me as well. Review of Systems Review of Systems: All systems reviewed & are unremarkable except as noted in Subjective Physical Exam Physical Exam: General- morbidly obese M in NAD, on bipap Head- atraumatic Eyes- PERRL Neck- supple, no JVD, Lungs- clear to auscultation no wheezing or crackles. Heart- regular rhythm; no murmur Abdomen- normal bowel sounds, soft, nontender, no distension. + obese Extremities- mild pretibial edema, no erythema seen. Neuro- awake and alert, able to nod/ shake his head, following commands, only making minimal movements with his extremities; PERRL,Speech slurred, and he is on bipap Skin- warm & dry Results & Data Results & Data Vital Signs (Past 12 Hours) Vital Signs Pulse Resp BP Pulse Ox Pulse Ox O2 Del Method O2 Del Method 05/13/23 12:00 94 H 23 96 BiPAP 05/13/23 12:00 162/104 H 05/13/23 11:23 99 H 24 96 05/13/23 11:23 152/116 H 05/13/23 11:00 92 H 23 97 05/13/23 10:00 86 21 98 05/13/23 09:00 89 21 100 05/13/23 08:00 87 22 98 05/13/23 07:01 150/103 H 05/13/23 07:01 84 20 96 05/13/23 07:00 83 19 97 05/13/23 08:00 BiPAP 05/13/23 08:21 85 20 96 05/13/23 06:24 149/98 H 05/13/23 06:24 90 26 H 95 05/13/23 06:00 80 20 96 05/13/23 05:01 177/101 H 05/13/23 05:01 78 20 95 05/13/23 05:00 77 19 99 05/13/23 04:07 73 19 141/98 H 100 BiPAP 05/13/23 04:07 78 20 93 08/23 04:00 71 19 96 05/13/23 03:15 75 22 96 BiPAP 05/13/23 03:12 149/102 H 05/13/23 03:12 76 24 05/13/23 03:00 84 22 100 BiPAP 05/13/23 02:59 183/120 H 05/13/23 02:59 85 21 98 05/13/23 02:55 80 23 100 05/13/23 02:55 180/126 H 05/13/23 02:40 77 100 05/13/23 03:35 BiPAP 05/13/23 03:26 97 BiPAP 05/13/23 03:18 72 149/102 H 05/13/23 03:03 85 183/120 H 05/13/23 02:52 89 30 H 97 O2 Flow Rate FiO2 05/13/23 12:00 0.4 05/13/23 12:00 05/13/23 11:23 05/13/23 11:23 05/13/23 11:00 05/13/23 10:00 05/13/23 09:00 05/13/23 08:00 05/13/23 07:01 05/13/23 07:01 05/13/23 07:00 05/13/23 08:00 0.4 05/13/23 08:21 40 05/13/23 06:24 05/13/23 06:24 05/13/23 06:00 05/13/23 05:01 05/13/23 05:01 05/13/23 05:00 05/13/23 04:07 05/13/23 04:07 05/13/23 04:00 05/13/23 03:15 40 05/13/23 03:12 05/13/23 03:12 05/13/23 03:00 05/13/23 02:59 05/13/23 02:59 05/13/23 02:55 05/13/23 02:55 05/13/23 02:40 05/13/23 03:35 40 05/13/23 03:26 98 05/13/23 03:18 05/13/23 03:03 05/13/23 02:52 Laboratory Results 05/13/23 05/13/23 05/13/23 Range/Units 01:41 01:41 01:41 WBC 13.06 H (4.8-10.8) K/ul RBC 5.07 (4.70-6.10) M/uL Hgb 15.6 (14.0-18.0) g/dl Hct 49.4 (42.0-52.0) % MCV 97.4 (80.0-100.0) fL MCH 30.8 (25.0-34.0) pg MCHC 31.6 L (32.0-36.0) g/dL RDW Std Deviation 58.4 H (36.4-46.3) fL RDW Coeff of Cheryl 16.1 H (11.5-14.5) % Plt Count 234 (130-400) K/uL MPV 10.3 (9.4-12.4) fL Immature Gran % (Auto) 0.8 % Neut % (Auto) 83.4 % Lymph % (Auto) 8.3 % [place] % (Auto) 6.9 % Eos % (Auto) 0.3 % Baso % (Auto) 0.3 % Neut # (Auto) 10.89 H (1.40-6.50) K/uL Lymph # (Auto) 1.09 L (1.2-3.4) K/uL [place] # (Auto) 0.90 H (0.11-0.59) K/uL Eos # (Auto) 0.04 (0-0.50) K/uL Baso # (Auto) 0.04 (0-0.2) K/uL Immature Gran # (Auto) 0.10 (0.01-0.20) K/uL PT 20.3 H (9.0-12.0) Seconds POC INR (0.9-1.1) INR 1.9 H (0.9-1.1) ABG pH (7.35-7.45) ABG pCO2 (35-46) mmHg ABG pO2 (80-95) mmHg ABG HCO3 (19-24) mmol/L ABG O2 Saturation (90-95) % ABG Base Excess (-9-1.8) mEq/L Galen Test (Pos) Oxygen Given Sodium 137 (136-145) mmol/L Potassium 4.7 D (3.5-5.1) mmol/L Chloride 100 (98-107) mmol/L Carbon Dioxide 28 (21-32) mmol/L Anion Gap 9 (3-11) BUN 38 H (6-23) mg/dl Creatinine 2.61 H D (0.6-1.4) mg/dl Est Cr Clr Drug Dosing 56.8 ml/min Est GFR ( Amer) 30.2 ml/min Est GFR (Non-Af Amer) 26.1 ml/min BUN/Creatinine Ratio 14.6 (10-20) Glucose 103 H (70-99(Fasting)) mg/dl Estimat Average Glucose mg/dl Hemoglobin A1c (4.5-5.6) % Calcium 9.5 (8.6-10.3) mg/dl Magnesium 2.1 (1.7-2.4) mg/dl Total Bilirubin 0.7 (0.2-1.0) mg/dl AST 9 L (13-39) U/L ALT 8 (7-52) U/L Alkaline Phosphatase 62 (34-104) U/L Troponin I High Sens 12.4 (0-20) pg/ml Total Protein 6.9 (6.0-8.3) gm/dl Albumin 3.6 (3.4-5.0) gm/dl Globulin 3.3 (2.5-4.0) gm/dl Albumin/Globulin Ratio 1.1 (0.9-2) Triglycerides 173 H (0-150) mg/dl Cholesterol 281 H (0-200) mg/dl LDL Cholesterol, Calc 206 mg/dl VLDL Cholesterol, Calc 35 H (0-30) mg/dl HDL Cholesterol 40 mg/dl Cholesterol/HDL Ratio 7.0 H (0-5) Urine Color Urine Appearance (Clear) Urine pH (4.5-7.5) Ur Specific [place] (1.000-1.030) Urine Protein (Negative) Urine Glucose (UA) (Negative) Urine Ketones (Negative) Urine Blood (Negative) Urine Nitrite (Negative) Urine Bilirubin (Negative) Urine Urobilinogen (Negative) Ur Leukocyte Esterase (Negative) Urine WBC (Auto) (0-5) /hpf Urine RBC (Auto) (0-4) /hpf U Hyaline Cast (Auto) (0-5) /lpf U Epithel Cells (Auto) (0-5) /lpf Urine Bacteria (Auto) (Negative) Urine Opiates Screen (Neg) Ur Methadone, Qual (Neg) Urine Barbiturates (Neg) Ur Phencyclidine (PCP) (Neg) U Amphetamin/Meth Scrn (Neg) MDMA (Ecstasy) Screen (Neg) U Benzodiazepines Scrn (Neg) Ur Cocaine Metabolite (Neg) U Marijuana (THC) Screen (Neg) 05/13/23 05/13/23 05/12/23 Range/Units 01:41 00:31 14:22 WBC (4.8-10.8) K/ul RBC (4.70-6.10) M/uL Hgb (14.0-18.0) g/dl Hct (42.0-52.0) % MCV (80.0-100.0) fL MCH (25.0-34.0) pg MCHC (32.0-36.0) g/dL RDW Std Deviation (36.4-46.3) fL RDW Coeff of Cheryl (11.5-14.5) % Plt Count (130-400) K/uL MPV (9.4-12.4) fL Immature Gran % (Auto) % Neut % (Auto) % Lymph % (Auto) % [place] % (Auto) % Eos % (Auto) % Baso % (Auto) % Neut # (Auto) (1.40-6.50) K/uL Lymph # (Auto) (1.2-3.4) K/uL [place] # (Auto) (0.11-0.59) K/uL Eos # (Auto) (0-0.50) K/uL Baso # (Auto) (0-0.2) K/uL Immature Gran # (Auto) (0.01-0.20) K/uL PT (9.0-12.0) Seconds POC INR (0.9-1.1) INR (0.9-1.1) ABG pH 7.32 L (7.35-7.45) ABG pCO2 55 H (35-46) mmHg ABG pO2 117 H (80-95) mmHg ABG HCO3 28 H (19-24) mmol/L ABG O2 Saturation 99.2 H (90-95) % ABG Base Excess 1.1 (-9-1.8) mEq/L Galen Test Pos (Pos) Oxygen Given 7L Sodium (136-145) mmol/L Potassium (3.5-5.1) mmol/L Chloride (98-107) mmol/L Carbon Dioxide (21-32) mmol/L Anion Gap (3-11) BUN (6-23) mg/dl Creatinine (0.6-1.4) mg/dl Est Cr Clr Drug Dosing ml/min Est GFR ( Amer) ml/min Est GFR (Non-Af Amer) ml/min BUN/Creatinine Ratio (10-20) Glucose (70-99(Fasting)) mg/dl Estimat Average Glucose 128 mg/dl Hemoglobin A1c 6.1 H (4.5-5.6) % Calcium (8.6-10.3) mg/dl Magnesium (1.7-2.4) mg/dl Total Bilirubin (0.2-1.0) mg/dl AST (13-39) U/L ALT (7-52) U/L Alkaline Phosphatase (34-104) U/L Troponin I High Sens (0-20) pg/ml Total Protein (6.0-8.3) gm/dl Albumin (3.4-5.0) gm/dl Globulin (2.5-4.0) gm/dl Albumin/Globulin Ratio (0.9-2) Triglycerides (0-150) mg/dl Cholesterol (0-200) mg/dl LDL Cholesterol, Calc mg/dl VLDL Cholesterol, Calc (0-30) mg/dl HDL Cholesterol mg/dl Cholesterol/HDL Ratio (0-5) Urine Color Urine Appearance (Clear) Urine pH (4.5-7.5) Ur Specific [place] (1.000-1.030) Urine Protein (Negative) Urine Glucose (UA) (Negative) Urine Ketones (Negative) Urine Blood (Negative) Urine Nitrite (Negative) Urine Bilirubin (Negative) Urine Urobilinogen (Negative) Ur Leukocyte Esterase (Negative) Urine WBC (Auto) (0-5) /hpf Urine RBC (Auto) (0-4) /hpf U Hyaline Cast (Auto) (0-5) /lpf U Epithel Cells (Auto) (0-5) /lpf Urine Bacteria (Auto) (Negative) Urine Opiates Screen Neg (Neg) Ur Methadone, Qual Neg (Neg) Urine Barbiturates Neg (Neg) Ur Phencyclidine (PCP) Neg (Neg) U Amphetamin/Meth Scrn Neg (Neg) MDMA (Ecstasy) Screen Neg (Neg) U Benzodiazepines Scrn Neg (Neg) Ur Cocaine Metabolite Neg (Neg) U Marijuana (THC) Screen Neg (Neg) 05/12/23 05/11/23 Range/Units 14:16 22:33 WBC (4.8-10.8) K/ul RBC (4.70-6.10) M/uL Hgb (14.0-18.0) g/dl Hct (42.0-52.0) % MCV (80.0-100.0) fL MCH (25.0-34.0) pg MCHC (32.0-36.0) g/dL RDW Std Deviation (36.4-46.3) fL RDW Coeff of Cheryl (11.5-14.5) % Plt Count (130-400) K/uL MPV (9.4-12.4) fL Immature Gran % (Auto) % Neut % (Auto) % Lymph % (Auto) % [place] % (Auto) % Eos % (Auto) % Baso % (Auto) % Neut # (Auto) (1.40-6.50) K/uL Lymph # (Auto) (1.2-3.4) K/uL [place] # (Auto) (0.11-0.59) K/uL Eos # (Auto) (0-0.50) K/uL Baso # (Auto) (0-0.2) K/uL Immature Gran # (Auto) (0.01-0.20) K/uL PT (9.0-12.0) Seconds POC INR 2.3 H (0.9-1.1) INR (0.9-1.1) ABG pH (7.35-7.45) ABG pCO2 (35-46) mmHg ABG pO2 (80-95) mmHg ABG HCO3 (19-24) mmol/L ABG O2 Saturation (90-95) % ABG Base Excess (-9-1.8) mEq/L Galen Test (Pos) Oxygen Given Sodium (136-145) mmol/L Potassium (3.5-5.1) mmol/L Chloride (98-107) mmol/L Carbon Dioxide (21-32) mmol/L Anion Gap (3-11) BUN (6-23) mg/dl Creatinine (0.6-1.4) mg/dl Est Cr Clr Drug Dosing ml/min Est GFR ( Amer) ml/min Est GFR (Non-Af Amer) ml/min BUN/Creatinine Ratio (10-20) Glucose (70-99(Fasting)) mg/dl Estimat Average Glucose mg/dl Hemoglobin A1c (4.5-5.6) % Calcium (8.6-10.3) mg/dl Magnesium (1.7-2.4) mg/dl Total Bilirubin (0.2-1.0) mg/dl AST (13-39) U/L ALT (7-52) U/L Alkaline Phosphatase (34-104) U/L Troponin I High Sens (0-20) pg/ml Total Protein (6.0-8.3) gm/dl Albumin (3.4-5.0) gm/dl Globulin (2.5-4.0) gm/dl Albumin/Globulin Ratio (0.9-2) Triglycerides (0-150) mg/dl Cholesterol (0-200) mg/dl LDL Cholesterol, Calc mg/dl VLDL Cholesterol, Calc (0-30) mg/dl HDL Cholesterol mg/dl Cholesterol/HDL Ratio (0-5) Urine Color Yellow Urine Appearance Clear (Clear) Urine pH 5.0 (4.5-7.5) Ur Specific [place] 1.015 (1.000-1.030) Urine Protein Trace H (Negative) Urine Glucose (UA) Negative (Negative) Urine Ketones Negative (Negative) Urine Blood Negative (Negative) Urine Nitrite Negative (Negative) Urine Bilirubin Negative (Negative) Urine Urobilinogen Negative (Negative) Ur Leukocyte Esterase Trace H (Negative) Urine WBC (Auto) 1-5 (0-5) /hpf Urine RBC (Auto) 0-4 (0-4) /hpf U Hyaline Cast (Auto) 5-10 H (0-5) /lpf U Epithel Cells (Auto) 5-10 H (0-5) /lpf Urine Bacteria (Auto) Negative (Negative) Urine Opiates Screen (Neg) Ur Methadone, Qual (Neg) Urine Barbiturates (Neg) Ur Phencyclidine (PCP) (Neg) U Amphetamin/Meth Scrn (Neg) MDMA (Ecstasy) Screen (Neg) U Benzodiazepines Scrn (Neg) Ur Cocaine Metabolite (Neg) U Marijuana (THC) Screen (Neg) Medications Administered Current Inpatient Medications Albuterol (Albuterol Hfa 8 Gm Inhaler) 2 puffs INH Q4 PRN PRN Reason: Wheezing Stop: 06/11/23 04:46 Allopurinol (Allopurinol 300 Mg Tab) 300 mg PO DAILY [facility] Stop: 06/11/23 08:59 Last Admin: 05/13/23 08:35 Dose: Not Given Aspirin (Aspirin 81 Mg Ectab) 81 mg PO QAM [facility] Stop: 06/11/23 12:59 Last Admin: 05/13/23 08:36 Dose: Not Given Atorvastatin Calcium (Atorvastatin 40 Mg Tab) [facility] [place] Stop: 06/12/23 08:59 Last Admin: 05/13/23 08:36 Dose: Not Given Carvedilol (Carvedilol 6.25 Mg Tab) 6.25 mg PO BIDM [facility] Stop: 06/11/23 07:59 Last Admin: 05/13/23 08:35 Dose: Not Given Ferrous Sulfate (Ferrous Sulfate 325 Mg Tab) 325 mg PO DAILY [facility] Stop: 06/11/23 08:59 Last Admin: 05/13/23 08:36 Dose: Not Given Parenteral Electrolytes (Plasma-Lyte A Ph 7.4) 1,000 mls @ 100 mls/hr IV .Q10H [facility] Stop: 05/13/23 13:44 Last Admin: 05/13/23 03:49 Dose: 100 mls/hr Labetalol HCl (Labetalol Hcl Iv 5 Mg/Ml 20ml) 5 mg IV Q4H PRN PRN Reason: Blood Pressure - High Stop: 06/12/23 12:24 Miconazole Nitrate (Miconazole Nitrate Powder 85 Gm) 1 appln EXT PRN PRN PRN Reason: Affected Skin Folds Stop: 06/11/23 15:10 Miscellaneous Information (Pharmacist Discharge Med Rec Consult) 1 each N/A UD PRN PRN Reason: Consult Stop: 06/11/23 04:46 Nitroglycerin (Nitroglycerin Sl 0.4 Mg/Tab Tab) 0.4 mg SL Q5M PRN PRN Reason: Chest Pain Stop: 06/11/23 04:46 Prednisone (Prednisone 10 Mg Tablet) 30 mg PO DAILY [facility] Stop: 06/11/23 08:59 Last Admin: 05/13/23 08:36 Dose: Not Given Torsemide (Torsemide 20 Mg Tab) 20 mg PO [facility] Stop: 06/11/23 08:59 Last Admin: 05/12/23 09:16 Dose: 20 mg Verapamil HCl (Verapamil Hcl 240 Mg Tabcr) 240 mg PO [facility] Stop: 06/11/23 08:59 Last Admin: 05/12/23 09:17 Dose: 240 mg Warfarin Sodium (Warfarin Sod 4 Mg Tab) 4 mg PO DAILY@1600 [facility] Stop: 06/11/23 15:59 Last Admin: 05/12/23 16:17 Dose: 4 mg
[2023-05-13] MEDS: WARFARIN SOD 4 MG TAB PO SCH (16:02)
[2023-05-14] MEDS: SODIUM CHLORIDE 0.9% 1,000 ML IV SCH ×2 (02:30→18:07)
[2023-05-14 04:08] LABS: iSTAT Allen Test Pass; iSTAT Art Bld Gas pCO2 Correct 45 mmHg (35-46); iSTAT Art Bld Gas pH Corrected 7.384 (7.35-7.45); iSTAT Arterial Blood Gas HCO3 27 meg/L (19-24); iSTAT Arterial Blood Gas pCO2 46 mmHg (35-46); iSTAT Arterial Blood Gas pH 7.38 (7.35-7.45); iSTAT Arterial Blood Gas pO2 67 mmHg (80-95); iSTAT Arterial Blood Gas pO2 C 66; iSTAT Carbon Dioxide 28 mmol/L (24-31); iSTAT FiO2 30 %; iSTAT Hematocrit 45 % (42-52); iSTAT Hemoglobin 15.3 g/dl (14.0-18.0); iSTAT Potassium 4.2 mmol/L (3.3-5.0); iSTAT Site R Radial; iSTAT Sodium 139 mmol/L (135-144)
[2023-05-14 04:25] LABS: Basophils # (auto) 0.04 K/uL (0-0.2); Basophils % (auto) 0.3 %; Eosinophils # (auto) 0.09 K/uL (0-0.50); Eosinophils % (auto) 0.6 %; Hematocrit (blood only) 47.2 % (42.0-52.0); Hemoglobin 14.9 g/dl (14.0-18.0); Immature Granulocytes % (auto) 0.7 %; Lymphocytes # (auto) 0.93 K/uL (1.2-3.4); Lymphocytes % (auto) 6.5 %; Mean Corpuscular Hemoglobin 30.3 pg (25.0-34.0); Mean Corpuscular Hgb Conc 31.6 g/dL (32.0-36.0); Mean Corpuscular Volume 96.1 fL (80.0-100.0); Mean Platelet Volume 10.3 fL (9.4-12.4); Monocytes # (auto) 1.23 K/uL (0.11-0.59); Monocytes % (auto) 8.6 %; Neutrophils # (auto) 11.99 K/uL (1.40-6.50); Neutrophils % (auto) 83.3 %; Platelet Count 226 K/uL (130-400); RDW Coefficient of Variation 15.9 % (11.5-14.5); RDW Standard Deviation 56.2 fL (36.4-46.3); Red Blood Count 4.91 M/uL (4.70-6.10); White Blood Count 14.38 K/ul (4.8-10.8)
[2023-05-14 04:42] LABS: BUN Creatinine Ratio 16.9 (10-20); Calcium 9.6 mg/dl (8.6-10.3); Creatinine Clr Calc Pharmacy 48.8 ml/min; Est GFR (Non-African American) 22.4 ml/min; Magnesium 2.1 mg/dl (1.7-2.4); Phosphorus 4.5 mg/dl (2.5-4.9); Potassium 4.3 mmol/L (3.5-5.1)
[2023-05-14 05:04] LABS: INR 2.2 (0.9-1.1); Prothrombin Time 22.7 Seconds (9.0-12.0)
--- NOTE | 2023-05-14 08:14 | Critical Care Progress Note ---
Date of Service May 14, 2023 Assessment & Plan (1) CKD (chronic kidney disease) stage 3, GFR 30-59 ml/min: (2) Stroke: (3) Slurring of speech: (4) Hypoxia: (5) Epigastric abdominal pain: (6) Eosinophilia: (7) DVT (deep venous thrombosis): Plan Reason Critically Ill: 57 YOM admitted for stroke like symptoms currently with worsening of aphasia, left sided weakness and tachypnea on BiPAP with concern for respiratory failure. Neuro -CVA/Stroke like symptoms, Aphasia, -Acute on chronic stroke symptoms- with possible extension of stroke vs. uremic encephalopathy or combination - On initial evaluation not moving his left side without coaxing- on arrival to ICU and during transport patient spontaneously moving left arm and left leg - remains aphasic - CT head negative x2, no signs of bleeding - Continue ASA and Warfarin as long as no hemorrhage - MRI would be beneficial- Consider sedating for completion of study if respiratory efforts improve - As stroke symptoms started yesterday and on thrombolytics- not TNK candidate - Neurology consulted - No Carotid Stenosis Cardiac -HTN, HLD, - Allow for permissive HTN We will start the patient on metoprolol IV given that he failed swallow eval - High Dose statin therapy - 40mg Atorvastatin Respiratory -Acute on Chronic Respiratory failure, Obesity Hypoventilation syndrome -Mild hypercapnia- 7.32/55/117/28- continue with CPAP/BiPAP GI -Morbid Obesity - no acute needs RENAL/LYTES - CHERYL on CKD - Follow daily BMPs- avoid nephrotoxic agents as able and if needed minimize exposure time - Nephrology on board - No acute need - Starks to gravity ENDO - No acute needs - HGB A1C 5.5 range -Continue with ICU hypoglycemia protocol HEME -Hx of Eosinophilia on chronic prednisone, HX of DVT History of eosinophil count as high as 3400 10/17/2022 - Follows with Allergy- on steroid taper -On prednisone taper since 04/28/2023. Was started on 40 mg and was supposed to decrease by 10 mg every week. --DVT on chronic warfarin follow daily INR to goal 2-2.5 ID - No current concern of infectious etiology - Leukocytosis likely secondary to steroid use --Prophylaxis VTE: Warfarin GI: Pepcid Lines: Peripheral Diet: N.p.o. Plan: In/out: +510, urine output 490, +1.3 L since coming to the hospital ABG 7.38/46/67 on BiPAP Start the patient on Normosol 75 mill an hour for 1.5 L after giving 250 mL bolus In and out Unfortunately patient failed swallow eval. Depression/psych issues might also be playing a role in patient's presentation. Currently is able to maintain his airway. Given the elevated BMI he will be a high risk intubation. Continue with neurochecks Decrease prednisone to 20 mg on a daily basis for 7 days followed by 10 mg for 7 days and then stop We will consider NGT if there is no improvement in mentation I have personally spent 38 minutes of critical care time in the direct management of this patient. This is a life/limb threatening event. This includes time spent evaluating patient, direct bedside care, chart review, placing orders, interpretation of diagnostic studies, discussion with consultants, patient, and family members, as well as other required patient management activities. This time is exclusive of all separately billable procedures, and teaching time and separate from and in addition to any other critical care service time. Please note the above document was generated using voice recognition software. It may contain grammatical, syntax or spelling errors. Admission and Anticipated Discharge Date Admission Date: May 12, 2023 Subjective Patient seen and examined at bedside. No acute distress, notable since overnight He was on BiPAP 14/5 saturating well. Getting tidal volume 650 He is awake, easily arousable. He answers questions by nodding the head yes or no. Is not moving his extremities bilateral upper and lower. Denies any chest pain, no shortness of breath, no headache, no nausea, no vomiting Asking to have some food. Review of Systems Review of Systems: Unobtainable due to mental health condition and Unobtainable due to cognitive status Physical Exam Physical Exam: Constitutional: No acute distress HEENT: EOMI, PERRLA Respiratory system: Decreased air entry bilaterally, no wheeze, no rhonchi, no crackles CVS: S1-S2 positive, no murmurs or gallops, distant heart sounds Abdomen: Soft, nontender, nondistended, positive bowel sounds x4, obese Extremities: +2 pulses bilaterally radialis/ dorsalis pedis, no cyanosis, no edema Neuro: Awake and alert, unable to move bilateral upper and lower extremities, Babinski negative Psych: Flat mood and affect G/U: Positive Starks Skin: no rashes, warm and dry Lymphatic: no cervical or axillary lymphadenopathy Results & Data Results & Data Vital Signs (Past 12 Hours) Vital Signs Temp Pulse Pulse Resp BP BP Pulse Ox 05/14/23 07:32 104 H 26 H 98 05/14/23 05:00 115 H 16 164/104 H 96 05/14/23 03:00 109 H 16 154/103 H 95 05/14/23 04:00 106 H 16 163/100 H 96 05/14/23 06:00 107 H 16 163/100 H 91 05/14/23 01:52 103 H 27 H 98 05/14/23 01:00 104 H 26 H 98 05/14/23 00:50 103 H 25 H 97 05/14/23 00:40 109 H 27 H 99 05/14/23 00:30 107 H 30 H 98 05/14/23 00:20 108 H 30 H 98 05/14/23 00:10 108 H 28 H 98 05/14/23 00:01 109 H 28 H 94 05/14/23 00:01 141/99 H 05/14/23 00:00 106 H 27 H 98 05/13/23 23:50 108 H 27 H 97 05/13/23 23:40 102 H 26 H 99 05/13/23 23:30 104 H 25 H 99 05/13/23 23:20 102 H 27 H 98 05/13/23 23:10 102 H 25 H 99 05/13/23 23:01 183/91 H 05/13/23 23:01 105 H 26 H 95 05/13/23 23:00 102 H 25 H 98 05/13/23 22:50 102 H 26 H 99 05/13/23 22:40 100 H 28 H 98 05/13/23 22:30 101 H 27 H 98 05/13/23 22:20 103 H 26 H 98 05/13/23 22:10 102 H 28 H 99 05/13/23 22:01 147/101 H 05/13/23 22:01 104 H 28 H 93 05/13/23 22:00 100 H 26 H 98 05/13/23 21:50 111 H 27 H 98 05/13/23 21:40 108 H 26 H 99 05/13/23 21:30 107 H 27 H 98 05/13/23 21:20 107 H 28 H 98 05/13/23 21:10 108 H 26 H 99 05/13/23 21:01 174/104 H 05/13/23 21:01 110 H 25 H 05/13/23 21:00 107 H 26 H 98 05/13/23 20:50 105 H 26 H 96 05/13/23 20:46 156/104 H 05/13/23 20:46 115 H 31 H 76 L 05/13/23 20:40 108 H 26 H 100 05/13/23 20:30 108 H 25 H 100 05/13/23 20:20 108 H 27 H 99 05/14/23 01:45 36.7 C 05/13/23 22:19 103 H 27 H 97 05/13/23 22:06 100 H 147/101 H 05/13/23 21:49 110 H 174/104 H 05/13/23 20:29 107 H 26 H 100 O2 Del Method FiO2 05/14/23 07:32 30 05/14/23 05:00 BiPAP 05/14/23 03:00 BiPAP 05/14/23 04:00 BiPAP 05/14/23 06:00 BiPAP 05/14/23 01:52 30 05/14/23 01:00 05/14/23 00:50 05/14/23 00:40 05/14/23 00:30 05/14/23 00:20 05/14/23 00:10 05/14/23 00:01 05/14/23 00:01 05/14/23 00:00 05/13/23 23:50 05/13/23 23:40 05/13/23 23:30 05/13/23 23:20 05/13/23 23:10 05/13/23 23:01 05/13/23 23:01 05/13/23 23:00 05/13/23 22:50 05/13/23 22:40 05/13/23 22:30 05/13/23 22:20 05/13/23 22:10 05/13/23 22:01 05/13/23 22:01 05/13/23 22:00 05/13/23 21:50 05/13/23 21:40 05/13/23 21:30 05/13/23 21:20 05/13/23 21:10 05/13/23 21:01 05/13/23 21:01 05/13/23 21:00 05/13/23 20:50 05/13/23 20:46 05/13/23 20:46 05/13/23 20:40 05/13/23 20:30 05/13/23 20:20 05/14/23 01:45 05/13/23 22:19 30 05/13/23 22:06 05/13/23 21:49 05/13/23 20:29 30 Laboratory Results 05/14/23 04:06 05/14/23 04:06 Coding Level of Care Code 39706 CRITICAL CARE 1ST 30-74M Diagnoses CKD (chronic kidney disease) stage 3, GFR 30-59 ml/min N18.30 Stroke I63.9 Slurring of speech R47.81 Hypoxia R09.02 Epigastric abdominal pain R10.13 Eosinophilia D72.19 DVT (deep venous thrombosis) I82.409 Time Spent (min) 38
[2023-05-14] MEDS: METOPROLOL TARTRATE 1 MG/ML VIAL IV SCH ×3 (08:27→22:00)
[2023-05-14] MEDS: FAMOTIDINE 20 MG in SYRINGE 3 ML IV SCH (08:42)
--- NOTE | 2023-05-14 08:59 | Electrocardiogram Report ---
Test Reason : Blood Pressure : / mmHG Vent. Rate : 081 BPM Atrial Rate : 081 BPM P-R Int : 144 ms QRS Dur : 118 ms QT Int : 412 ms P-R-T Axes : 041 -33 043 degrees QTc Int : 478 ms Poor data quality, interpretation may be adversely affected Normal sinus rhythm Left axis deviation Incomplete right bundle branch block Abnormal ECG When compared with ECG of 19-OCT-2022 19:53, Borderline criteria for Lateral infarct are no longer Present Confirmed by Zaheer Calzada ([id number]) on 05/14/2023 8:59:24 AM Referred By: REFERRED SELF Confirmed By:Zaheer Calzada
--- NOTE | 2023-05-14 09:24 | Hospitalist Progress Note ---
Date of Service May 14, 2023 Assessment & Plan (1) Slurring of speech: Plan: This is a 57 yo M w/ hypertension,HLD, morbid obesity, chronic diastolic CHF, and ambulatory dysfunction currently wheelchair-bound hx of gout, rheumatoid arthritis, tobacco abuse,chronic back pain, medication non compliance, chronic kidney disease, morbid obesity, obesity hypoventilation syndrome, history of DVT on Coumadin currently living at home is brought in because of strokelike symptoms since around 5 PM he noticed to have slurred speech. Strokelike symptoms Slurred speech CT head in ER - negative CTA head and neck not done because of history of significant CHERYL in the recent past Patient on Coumadin and INR therapeutic TNK was not given because of INR therapeutic Patient states he is severely claustrophobic for MRI scan monitor on telemetry, neurochecks per protocol Speech evaluation and PT OT evaluation-> pt failed swallow study today (05/14/23) Permissive hypertension N.p.o. for now, gentle fluids Echocardiogram ordered and carotid Doppler Echo - EF 60 to 65%. Moderate concentric LVH. RV is grossly normal size. RV systolic function is qualitatively normal. Poorly visualized valvular anatomy. Carotid Doppler - 1. Mild atherosclerosis of the carotid bulbs without hemodynamically significant stenosis. 2. Normal antegrade vertebral flow bilaterally. 05/12 CT head repeat - negative Added aspirin 81 and statin pt is already on coumadin a1c 6.1% LDL 206 Neurology consulted and following - ideally would obtain MRI of brain Overnight pt confused and with labored breathing. Possibly w/ more weakness. pt refused bipap during the day. He was transferred to ICU and currently on bipap 05/14 Pt continues to be in ICU on bipap Hypertension On Coreg and verapamil Reduced Coreg dose to 6.25 for now to allow permissive hypertension We will monitor care per ICU History DVT On warfarin INR therapeutic We will follow PT/INR Chronically kidney disease Creatinine 1.5 on admission- improved from previous Cr worsened now and nephrology consulted We will follow labs history of gout Allopurinol Rheumatoid arthritis Says currently on prednisone 30 mg daily seems to be on tapering dose Looks like he was on 5 to 10 mg daily in the past Tapering now per ICU team Morbid obesity Obesity hypoventilation syndrome Not using BiPAP at home. Says he had nocturnal study done recently and he does not have results yet. Oxygen VBG ok on admission Bipap ordered and pt refused during the day (05/12) Now on bipap in icu Chronic diastolic CHF On torsemide monitor for volume overload nephrology also following at this time History of anemia On iron supplements Hemoglobin stable DVT prophylaxis on Coumadin Disposition - ICU Full code Admission and Anticipated Discharge Date Admission Date: May 12, 2023 Subjective Pt seen in follow up of stroke-like symptoms Transferred to ICU - as pt confused and breathing labored. Pt refused bipap during the day. He opened his eyes but was not able to answer. also, poss. incr. weakness - pls see physician practice coordinator note for more detail CT head repeated on 05/12 twice - and negative Currently on bipap Currently he is in ICU , laying in bed in NAD, on Bipap. He is able to nod. shake his head no. Denies abdominal pain or chest pain. Does not seem to have a headache. He has chronic joint pain. He is following simple commands/ not moving extremities for me but RN says he was moving extremities today. Failed swallow test today. Per RN, pt's father called and was updated, likely will be visiting tomorrow. Review of Systems Review of Systems: All systems reviewed & are unremarkable except as noted in Subjective Physical Exam Physical Exam: General- morbidly obese M in NAD, on bipap Head- atraumatic Eyes- PERRL Neck- supple, no JVD, Lungs- clear to auscultation no wheezing or crackles. Heart- regular rhythm; no murmur Abdomen- normal bowel sounds, soft, nontender, no distension. + obese Extremities- mild pretibial edema, no erythema seen. Neuro- awake, able to nod/ shake his head, following simple commands, not moving extremities on my exam today, PERRL,Speech slurred, and he is on bipap Skin- warm & dry Results & Data Results & Data Vital Signs (Past 12 Hours) Vital Signs Temp Pulse Pulse Resp BP BP Pulse Ox 05/14/23 08:42 95 H 05/14/23 08:27 110 H 05/14/23 07:32 104 H 26 H 98 05/14/23 05:00 115 H 16 164/104 H 96 05/14/23 03:00 109 H 16 154/103 H 95 05/14/23 04:00 106 H 16 163/100 H 96 05/14/23 06:00 107 H 16 163/100 H 91 05/14/23 01:52 103 H 27 H 98 05/14/23 01:00 104 H 26 H 98 05/14/23 00:50 103 H 25 H 97 05/14/23 00:40 109 H 27 H 99 05/14/23 00:30 107 H 30 H 98 05/14/23 00:20 108 H 30 H 98 05/14/23 00:10 108 H 28 H 98 05/14/23 00:01 109 H 28 H 94 05/14/23 00:01 141/99 H 05/14/23 00:00 106 H 27 H 98 05/13/23 23:50 108 H 27 H 97 05/13/23 23:40 102 H 26 H 99 05/13/23 23:30 104 H 25 H 99 05/13/23 23:20 102 H 27 H 98 05/13/23 23:10 102 H 25 H 99 05/13/23 23:01 183/91 H 05/13/23 23:01 105 H 26 H 95 05/13/23 23:00 102 H 25 H 98 05/13/23 22:50 102 H 26 H 99 05/13/23 22:40 100 H 28 H 98 05/13/23 22:30 101 H 27 H 98 05/13/23 22:20 103 H 26 H 98 05/13/23 22:10 102 H 28 H 99 05/13/23 22:01 147/101 H 05/13/23 22:01 104 H 28 H 93 05/13/23 22:00 100 H 26 H 98 05/13/23 21:50 111 H 27 H 98 05/13/23 21:40 108 H 26 H 99 05/13/23 21:30 107 H 27 H 98 05/14/23 01:45 36.7 C 05/13/23 22:19 103 H 27 H 97 05/13/23 22:06 100 H 147/101 H 05/13/23 21:49 110 H 174/104 H O2 Del Method FiO2 05/14/23 08:42 05/14/23 08:27 05/14/23 07:32 30 05/14/23 05:00 BiPAP 05/14/23 03:00 BiPAP 05/14/23 04:00 BiPAP 05/14/23 06:00 BiPAP 05/14/23 01:52 30 05/14/23 01:00 05/14/23 00:50 05/14/23 00:40 05/14/23 00:30 05/14/23 00:20 05/14/23 00:10 05/14/23 00:01 05/14/23 00:01 05/14/23 00:00 05/13/23 23:50 05/13/23 23:40 05/13/23 23:30 05/13/23 23:20 05/13/23 23:10 05/13/23 23:01 05/13/23 23:01 05/13/23 23:00 05/13/23 22:50 05/13/23 22:40 05/13/23 22:30 05/13/23 22:20 05/13/23 22:10 05/13/23 22:01 05/13/23 22:01 05/13/23 22:00 05/13/23 21:50 05/13/23 21:40 05/13/23 21:30 05/14/23 01:45 05/13/23 22:19 30 05/13/23 22:06 05/13/23 21:49 Laboratory Results 05/14/23 05/14/23 05/14/23 Range/Units 04:06 04:06 04:06 WBC 14.38 H (4.8-10.8) K/ul RBC 4.91 (4.70-6.10) M/uL Hgb 14.9 (14.0-18.0) g/dl POC Hgb (14.0-18.0) g/dl Hct 47.2 (42.0-52.0) % POC Hct (42-52) % MCV 96.1 (80.0-100.0) fL MCH 30.3 (25.0-34.0) pg MCHC 31.6 L (32.0-36.0) g/dL RDW Std Deviation 56.2 H (36.4-46.3) fL RDW Coeff of Cheryl 15.9 H (11.5-14.5) % Plt Count 226 (130-400) K/uL MPV 10.3 (9.4-12.4) fL Immature Gran % (Auto) 0.7 % Neut % (Auto) 83.3 % Lymph % (Auto) 6.5 % Smyth % (Auto) 8.6 % Eos % (Auto) 0.6 % Baso % (Auto) 0.3 % Neut # (Auto) 11.99 H (1.40-6.50) K/uL Lymph # (Auto) 0.93 L (1.2-3.4) K/uL Smyth # (Auto) 1.23 H (0.11-0.59) K/uL Eos # (Auto) 0.09 (0-0.50) K/uL Baso # (Auto) 0.04 (0-0.2) K/uL Immature Gran # (Auto) 0.10 (0.01-0.20) K/uL PT 22.7 H (9.0-12.0) Seconds INR 2.2 H (0.9-1.1) Sample Site POC pH (7.35-7.45) POC pCO2 (35-46) mmHg POC pO2 (80-95) mmHg POC HCO3 (19-24) derek/L POC Total CO2 (24-31) mmol/L POC Base Excess (-9-1.8) derek/L ABG pH (Temp Correct) (7.35-7.45) ABG pCO2 (Temp Corrct (35-46) mmHg POC ABG pO2 at Pt Temp POC ABG O2 Sat (90-95) % Galen Test O2 Delivery Device POC O2 Rate POC FiO2 % IPAP POC Sodium (135-144) mmol/L Sodium 137 (136-145) mmol/L POC Potassium (3.3-5.0) mmol/L Potassium 4.3 (3.5-5.1) mmol/L Chloride 102 (98-107) mmol/L Carbon Dioxide 24 (21-32) mmol/L Anion Gap 11 (3-11) BUN 50 H (6-23) mg/dl Creatinine 2.96 H D (0.6-1.4) mg/dl Est Cr Clr Drug Dosing 48.8 ml/min Est GFR ( Amer) 26.0 ml/min Est GFR (Non-Af Amer) 22.4 ml/min BUN/Creatinine Ratio 16.9 (10-20) Glucose 113 H (70-99(Fasting)) mg/dl POC Glucose (70-99) mg/dl Calcium 9.6 (8.6-10.3) mg/dl Phosphorus 4.5 (2.5-4.9) mg/dl Magnesium 2.1 (1.7-2.4) mg/dl 05/14/23 05/13/23 Range/Units 03:55 17:09 WBC (4.8-10.8) K/ul RBC (4.70-6.10) M/uL Hgb (14.0-18.0) g/dl POC Hgb 15.3 (14.0-18.0) g/dl Hct (42.0-52.0) % POC Hct 45 (42-52) % MCV (80.0-100.0) fL MCH (25.0-34.0) pg MCHC (32.0-36.0) g/dL RDW Std Deviation (36.4-46.3) fL RDW Coeff of Cheryl (11.5-14.5) % Plt Count (130-400) K/uL MPV (9.4-12.4) fL Immature Gran % (Auto) % Neut % (Auto) % Lymph % (Auto) % Smyth % (Auto) % Eos % (Auto) % Baso % (Auto) % Neut # (Auto) (1.40-6.50) K/uL Lymph # (Auto) (1.2-3.4) K/uL Smyth # (Auto) (0.11-0.59) K/uL Eos # (Auto) (0-0.50) K/uL Baso # (Auto) (0-0.2) K/uL Immature Gran # (Auto) (0.01-0.20) K/uL PT (9.0-12.0) Seconds INR (0.9-1.1) Sample Site R Radial POC pH 7.38 (7.35-7.45) POC pCO2 46 (35-46) mmHg POC pO2 67 L (80-95) mmHg POC HCO3 27 H (19-24) derek/L POC Total CO2 28 (24-31) mmol/L POC Base Excess 2.0 H (-9-1.8) derek/L ABG pH (Temp Correct) 7.384 (7.35-7.45) ABG pCO2 (Temp Corrct 45 (35-46) mmHg POC ABG pO2 at Pt Temp 66 POC ABG O2 Sat 92.0 (90-95) % Galen Test Pass O2 Delivery Device BIPAP POC O2 Rate 14 POC FiO2 30 % IPAP 14 POC Sodium 139 (135-144) mmol/L Sodium (136-145) mmol/L POC Potassium 4.2 (3.3-5.0) mmol/L Potassium (3.5-5.1) mmol/L Chloride (98-107) mmol/L Carbon Dioxide (21-32) mmol/L Anion Gap (3-11) BUN (6-23) mg/dl Creatinine (0.6-1.4) mg/dl Est Cr Clr Drug Dosing ml/min Est GFR ( Amer) ml/min Est GFR (Non-Af Amer) ml/min BUN/Creatinine Ratio (10-20) Glucose (70-99(Fasting)) mg/dl POC Glucose 107 H (70-99) mg/dl Calcium (8.6-10.3) mg/dl Phosphorus (2.5-4.9) mg/dl Magnesium (1.7-2.4) mg/dl Medications Administered Current Inpatient Medications Albuterol (Albuterol Hfa 8 Gm Inhaler) 2 puffs INH Q4 PRN PRN Reason: Wheezing Stop: 06/11/23 04:46 Allopurinol (Allopurinol 300 Mg Tab) 300 mg PO DAILY [facility] Stop: 06/11/23 08:59 Last Admin: 05/13/23 08:35 Dose: Not Given Aspirin (Aspirin 81 Mg Ectab) 81 mg PO QAM [facility] Stop: 06/11/23 12:59 Last Admin: 05/13/23 08:36 Dose: Not Given Atorvastatin Calcium (Atorvastatin 40 Mg Tab) 40 mg PO QAM [facility] Stop: 06/12/23 08:59 Last Admin: 05/13/23 08:36 Dose: Not Given Carvedilol (Carvedilol 6.25 Mg Tab) 6.25 mg PO BIDM [facility] Stop: 06/11/23 07:59 Last Admin: 05/13/23 16:02 Dose: Not Given Ferrous Sulfate (Ferrous Sulfate 325 Mg Tab) 325 mg PO DAILY [facility] Stop: 06/11/23 08:59 Last Admin: 05/13/23 08:36 Dose: Not Given Famotidine 20 mg/ Syringe 5 mls @ 2.5 mls/min IV DAILY [facility] Stop: 06/13/23 08:59 Last Admin: 05/14/23 08:42 Dose: 2.5 mls/min Labetalol HCl (Labetalol Hcl Iv 5 Mg/Ml 20ml) 5 mg IV Q4H PRN PRN Reason: Blood Pressure - High Stop: 06/12/23 12:24 Last Admin: 05/13/23 21:49 Dose: 5 mg Metoprolol Tartrate (Metoprolol Tartrate 1 Mg/Ml Vial) 5 mg IV Q8 [facility] Stop: 06/13/23 08:29 Last Admin: 05/14/23 08:27 Dose: 5 mg Miconazole Nitrate (Miconazole Nitrate Powder 85 Gm) 1 appln EXT PRN PRN PRN Reason: Affected Skin Folds Stop: 06/11/23 15:10 Miscellaneous Information (Pharmacist Discharge Med Rec Consult) 1 each N/A UD PRN PRN Reason: Consult Stop: 06/11/23 04:46 Nitroglycerin (Nitroglycerin Sl 0.4 Mg/Tab Tab) 0.4 mg SL Q5M PRN PRN Reason: Chest Pain Stop: 06/11/23 04:46 Prednisone (Prednisone 10 Mg Tablet) 30 mg PO DAILY [facility] Stop: 06/11/23 08:59 Last Admin: 05/13/23 08:36 Dose: Not Given Torsemide (Torsemide 20 Mg Tab) 20 mg PO QAM [facility] Stop: 06/11/23 08:59 Last Admin: 05/12/23 09:16 Dose: 20 mg Verapamil HCl ([facility]apamil Hcl 240 Mg Tabcr) [facility] [place] Stop: 06/11/23 08:59 Last Admin: 05/12/23 09:17 Dose: 240 mg Warfarin Sodium (Warfarin Sod 4 Mg Tab) 4 mg PO DAILY@1600 [facility] Stop: 06/11/23 15:59 Last Admin: 05/13/23 16:02 Dose: Not Given
--- NOTE | 2023-05-14 10:26 | Pharmacy Report ---
- Date of Service May 14, 2023 - Pharmacy CVA/TIA Medication Review Medications to Prevent Stroke handout has been added to the patients discharge packet. Antiplatelet(s) * Aspirin 81 mg PO AM Cholesterol * High intensity statin: atorvastatin 40 mg daily DVT Prophylaxis * On therapeutic anticoagulation Therapeutic Anticoagulation * No history of Afib/Aflutter noted but patient is on chronic Warfarin therapy secondary to a DVT in the past Type 2 Diabetes * Patient has pre-diabetes that is diet controlled
[2023-05-14] MEDS: carvediloL 6.25 MG TAB PO SCH (10:45)
[2023-05-14] MEDS: FERROUS SULFATE 325 MG TAB PO SCH (13:00)
[2023-05-14] MEDS: ATORVASTATIN 40 MG TAB PO SCH (13:00)
[2023-05-14] MEDS: allopurinoL 300 MG TAB PO SCH (13:00)
[2023-05-14] MEDS: ASPIRIN 81 MG ECTAB PO SCH (13:00)
[2023-05-14] MEDS: predniSONE 10 MG TABLET PO SCH (13:02)
[2023-05-14] MEDS: WARFARIN SOD 4 MG TAB PO SCH (15:49)
[2023-05-14] MEDS ORDERED: PLASMA-LYTE A 250 ML IV ONE (19:01)
[2023-05-14] MEDS ORDERED: FOLIC ACID 1 MG in SYRINGE 9.8 ML IV ONE (19:15)
[2023-05-14] MEDS: PLASMA-LYTE A 1,000 ML IV SCH (19:35)
[2023-05-14] MEDS: THIAMINE HCL 500 MG in SODIUM CHLORIDE 0.9% 50 ML IV SCH (19:58)
--- NOTE | 2023-05-14 21:07 | Nephrology Progress Note ---
Date of Service May 14, 2023 Assessment & Plan (1) CHERYL (acute kidney injury): Plan: baseline creatinine 1.7-1.9 in pt quite prone to CHERYL based on previous admissi ons' renal profile. now w/ creatinine 2.6 in the wake of IV contrast and ongoing torsemide and increased today to 3. no hemodynamic instability. admission UA unremarkable for inflammation; no eosinophilia currently or as of spring. serum chemistries acceptable; mild respiratory acidosis addressed w/ bipap. he has made nearly a liter of urine today; and is on his 3rd L of IVF. not fluid overloaded on imaging; exam is very difficult to assess volume status meaningfully -continue plasmalyte current rate ongoing -daily bmp -avoid further IV contrast unless life/limbsaving -continue to hold torsemide -continue gentle hydration > agree w/plasmlyte at 75 ml/hr -permissive HTN for now per neuro -no indication for TAX DIRECTOR (2) CKD (chronic kidney disease) stage 3, GFR 30-59 ml/min: Plan: baseline creatinine 1.7-1.9 as OP in 2022 > follows w/ Dr Agee (3) Stroke: Plan: per primary service and neuro (4) Bedbound: Plan: -for about 18 months now for clinically unclear reasons; curious if neurology may have insight/recommend further w/u once acute stroke issue stabilized Admission and Anticipated Discharge Date Admission Date: May 12, 2023 Subjective seen on afternoon rounds. not much change in condition > moving better but not consistently followintg commands. Review of Systems Review of Systems: Unobtainable due to reduced consciousness Physical Exam Constitutional: well developed, well nourished, + morbidly obese, + altered mental status, + behavioral limitations, + physical limitations and + lethargic; no acute distress Eyes: EOM intact bilaterally ENMT: Ears: no external ear abnormality Nose: no external nose abnormality Mouth: + dry oral mucous membranes Neck: no nuchal rigidity Respiratory: normal respiratory effort Auscultation: + diminished lung sounds Cardiovascular: Rate/Rhythm: regular rhythm and + tachycardic Extremities: no edema Gastrointestinal (Abdomen): Inspection/Auscultation: normal bowel sounds Percussion/Palpation: abdomen soft; abdomen nontender Musculoskeletal: Extremities: + abnormal strength Skin: no rashes, warm and dry Neurologic: occasionally opens eyes; grunts at times Results & Data Vital Signs (Past 12 Hours) Vital Signs Temp Pulse Resp BP Pulse Ox FiO2 05/14/23 20:21 110 H 24 94 28 05/14/23 18:01 139/96 05/14/23 18:01 103 H 27 H 97 05/14/23 18:00 101 H 26 H 97 05/14/23 17:30 105 H 26 H 96 05/14/23 17:01 150/101 H 05/14/23 17:01 100 H 17 97 05/14/23 17:00 99 H 21 97 05/14/23 16:30 100 H 23 96 05/14/23 16:01 101 H 28 H 95 05/14/23 16:01 145/81 H 05/14/23 16:00 102 H 28 H 95 05/14/23 15:30 102 H 27 H 95 05/14/23 15:01 137/92 05/14/23 15:01 102 H 26 H 97 05/14/23 15:00 100 H 25 H 96 05/14/23 14:30 95 H 19 97 05/14/23 16:00 101 H 05/14/23 16:00 37.1 C 05/14/23 15:15 101 H 26 H 96 28 05/14/23 14:10 93 H 05/14/23 14:01 150/100 H 05/14/23 14:01 108 H 25 H 88 L 05/14/23 14:00 107 H 25 H 90 05/14/23 13:30 106 H 26 H 90 05/14/23 13:01 121/92 05/14/23 13:01 106 H 26 H 92 05/14/23 13:00 105 H 26 H 90 05/14/23 13:57 107 H 05/14/23 12:30 106 H 26 H 91 05/14/23 12:01 105 H 24 91 05/14/23 12:01 154/99 H 05/14/23 12:01 154/99 H 05/14/23 12:00 103 H 24 91 05/14/23 11:30 104 H 25 H 93 05/14/23 11:01 102 H 25 H 05/14/23 11:01 143/96 H 05/14/23 11:01 143/96 H 05/14/23 11:00 101 H 25 H 93 05/14/23 10:30 99 H 22 94 05/14/23 10:01 100 H 25 H 92 05/14/23 10:01 141/93 H 05/14/23 10:00 97 H 24 94 05/14/23 09:30 100 H 29 H 94 05/14/23 11:16 37.5 C 05/14/23 10:21 99 H 24 96 30 Laboratory Results 05/14/23 04:06 05/14/23 04:06
[2023-05-15] MEDS: THIAMINE HCL 500 MG in SODIUM CHLORIDE 0.9% 50 ML IV SCH ×3 (04:08→19:41)
[2023-05-15] MEDS: PLASMA-LYTE A 1,000 ML IV SCH ×2 (04:08→18:26)
[2023-05-15 04:37] LABS: Hematocrit (blood only) 45.1 % (42.0-52.0); Hemoglobin 14.5 g/dl (14.0-18.0); Mean Corpuscular Hemoglobin 30.5 pg (25.0-34.0); Mean Corpuscular Hgb Conc 32.2 g/dL (32.0-36.0); Mean Corpuscular Volume 94.9 fL (80.0-100.0); RDW Coefficient of Variation 15.9 % (11.5-14.5); RDW Standard Deviation 56.3 fL (36.4-46.3); Red Blood Count 4.75 M/uL (4.70-6.10); White Blood Count 11.66 K/ul (4.8-10.8)
[2023-05-15 04:38] LABS: Basophils # (auto) 0.03 K/uL (0-0.2); Basophils % (auto) 0.3 %; Eosinophils # (auto) 0.13 K/uL (0-0.50); Eosinophils % (auto) 1.1 %; Immature Granulocytes # (auto) 0.06 K/uL (0.01-0.20); Immature Granulocytes % (auto) 0.5 %; Lymphocytes # (auto) 1.02 K/uL (1.2-3.4); Lymphocytes % (auto) 8.7 %; Mean Platelet Volume 10.9 fL (9.4-12.4); Monocytes # (auto) 1.07 K/uL (0.11-0.59); Monocytes % (auto) 9.2 %; Neutrophils # (auto) 9.35 K/uL (1.40-6.50); Neutrophils % (auto) 80.2 %; Platelet Count 231 K/uL (130-400)
[2023-05-15 04:54] LABS: BUN Creatinine Ratio 16.6 (10-20); Calcium 9.6 mg/dl (8.6-10.3); Creatinine Clr Calc Pharmacy 36.5 ml/min; Est GFR (African American) 18.1 ml/min; Est GFR (Non-African American) 15.7 ml/min; Magnesium 2.4 mg/dl (1.7-2.4); Potassium 4.7 mmol/L (3.5-5.1)
[2023-05-15] MEDS: METOPROLOL TARTRATE 1 MG/ML VIAL IV SCH ×4 (05:07→23:49)
[2023-05-15 05:12] LABS: INR 1.8 (0.9-1.1); Prothrombin Time 18.8 Seconds (9.0-12.0)
--- NOTE | 2023-05-15 05:52 | Electrocardiogram Report ---
Test Reason : Blood Pressure : / mmHG Vent. Rate : 100 BPM Atrial Rate : 100 BPM P-R Int : 166 ms QRS Dur : 100 ms QT Int : 346 ms P-R-T Axes : 019 -27 005 degrees QTc Int : 446 ms Normal sinus rhythm Incomplete right bundle branch block Possible Lateral infarct , age undetermined Inferior infarct , age undetermined Abnormal ECG When compared with ECG of 11-MAY-2023 22:32, Questionable change in QRS duration Borderline criteria for Lateral infarct are now Present Inferior infarct is now Present Confirmed by Zaheer Calzada ([id number]) on 05/15/2023 5:52:25 AM Referred By: REFERRED SELF Confirmed By:Zaheer Calzada
--- NOTE | 2023-05-15 07:41 | Critical Care Progress Note ---
Date of Service May 15, 2023 Assessment & Plan (1) CKD (chronic kidney disease) stage 3, GFR 30-59 ml/min: (2) Stroke: (3) Slurring of speech: (4) Hypoxia: (5) Epigastric abdominal pain: (6) Eosinophilia: (7) DVT (deep venous thrombosis): Plan Reason Critically Ill: 57 YOM admitted for stroke like symptoms currently with worsening of aphasia, left sided weakness and tachypnea on BiPAP with concern for respiratory failure. Neuro -CVA/Stroke like symptoms, Aphasia, -Acute on chronic stroke symptoms- with possible extension of stroke vs. uremic encephalopathy or combination - On initial evaluation not moving his left side without coaxing- on arrival to ICU and during transport patient spontaneously moving left arm and left leg - remains aphasic - CT head negative x2, no signs of bleeding - Continue ASA and Warfarin as long as no hemorrhage - MRI would be beneficial- Consider sedating for completion of study if respiratory efforts improve - As stroke symptoms started yesterday and on thrombolytics- not TNK candidate - Neurology consulted - No Carotid Stenosis Cardiac -HTN, HLD, - Allow for permissive HTN We will start the patient on metoprolol IV given that he failed swallow eval - High Dose statin therapy - 40mg Atorvastatin Respiratory -Acute on Chronic Respiratory failure, Obesity Hypoventilation syndrome -Mild hypercapnia- 7.32/55/117/28- continue with CPAP/BiPAP GI -Morbid Obesity - no acute needs RENAL/LYTES - CHERYL on CKD - Follow daily BMPs- avoid nephrotoxic agents as able and if needed minimize exposure time - Nephrology on board - No acute need - Starks to gravity ENDO - No acute needs - HGB A1C 5.5 range -Continue with ICU hypoglycemia protocol HEME -Hx of Eosinophilia on chronic prednisone, HX of DVT History of eosinophil count as high as 3400 10/17/2022 - Follows with Allergy- on steroid taper -On prednisone taper since 04/28/2023. Was started on 40 mg and was supposed to decrease by 10 mg every week. --DVT on chronic warfarin follow daily INR to goal 2-2.5 ID - No current concern of infectious etiology - Leukocytosis likely secondary to steroid use --Prophylaxis VTE: Heparin drip GI: Pepcid Lines: Peripheral Diet: N.p.o. Plan: In/out: +1.8 L, urine output 310, +1.3 L since coming to the hospital ABG 7.42/39/61 Give 500 mL of bolus, continue with 100 mL an hour of Normosol I will order TSH, KEELY has been ordered. ESR and CRP UA with urine lites along with renal ultrasound Increase metoprolol to 5 mg every 6 hours I discussed the case with nephrology. We will try to put a NGT later today so that we can give him his medications and feed him Decrease prednisone to 20 mg on a daily basis for 7 days followed by 10 mg for 7 days and then stop I have personally spent 42 minutes of critical care time in the direct management of this patient. This is a life/limb threatening event. This includes time spent evaluating patient, direct bedside care, chart review, placing orders, interpretation of diagnostic studies, discussion with consultants, patient, and family members, as well as other required patient management activities. This time is exclusive of all separately billable procedures, and teaching time and separate from and in addition to any other critical care service time. Please note the above document was generated using voice recognition software. It may contain grammatical, syntax or spelling errors. Admission and Anticipated Discharge Date Admission Date: May 12, 2023 Subjective Patient seen and examined at bedside. No acute distress, notable chills overnight He was on BiPAP FiO2 28% saturating 93-94 He is easily arousable, denies any chest pain, does complain of mild shortness of breath He was breathing in the mid 20s. Afebrile Denies any nausea vomiting Today he is able to move bilateral lower legs as well as the right upper extremity to command Review of Systems Review of Systems: Unobtainable due to mental health condition and Unobtainable due to cognitive status Physical Exam Physical Exam: Constitutional: No acute distress HEENT: EOMI, PERRLA Respiratory system: Decreased air entry bilaterally, no wheeze, no rhonchi, no crackles CVS: S1-S2 positive, no murmurs or gallops, distant heart sounds Abdomen: Soft, nontender, nondistended, positive bowel sounds x4, obese Extremities: +2 pulses bilaterally radialis/ dorsalis pedis, no cyanosis, no edema Neuro: Awake and alert, bilateral lower extremity 3 out of 5, right upper extremity 3 out of 5, left upper extremity 0 out of 5, Babinski negative Psych: Flat mood and affect G/U: Positive Starks Skin: no rashes, warm and dry Lymphatic: no cervical or axillary lymphadenopathy Results & Data Results & Data Vital Signs (Past 12 Hours) Vital Signs Temp Pulse Resp BP Pulse Ox O2 Del Method FiO2 05/15/23 05:10 105 H 21 94 05/15/23 05:02 114 H 29 H 93 05/15/23 05:02 166/119 H 05/15/23 05:00 108 H 26 H 92 05/15/23 04:50 108 H 19 94 05/15/23 04:40 107 H 24 94 05/15/23 04:30 111 H 22 92 05/15/23 04:20 108 H 20 91 05/15/23 04:10 107 H 25 H 92 05/15/23 04:01 109 H 22 91 05/15/23 04:01 142/104 H 05/15/23 04:00 107 H 22 91 05/15/23 03:50 107 H 25 H 91 05/15/23 03:40 105 H 21 92 05/15/23 03:30 106 H 26 H 92 05/15/23 03:20 108 H 26 H 91 05/15/23 03:10 107 H 24 91 05/15/23 05:16 94 H 132/96 05/15/23 05:07 106 H 166/119 H 05/15/23 03:01 108 H 24 91 05/15/23 03:01 142/99 H 05/15/23 03:00 106 H 19 90 05/15/23 02:50 107 H 23 91 05/15/23 02:40 107 H 26 H 92 05/15/23 02:30 109 H 25 H 92 05/15/23 02:20 109 H 25 H 92 05/15/23 02:10 102 H 21 93 05/15/23 02:01 108 H 26 H 92 05/15/23 02:01 145/110 H 05/15/23 02:00 107 H 26 H 92 05/15/23 01:50 104 H 23 92 05/15/23 01:40 109 H 26 H 91 05/15/23 01:30 109 H 25 H 92 05/15/23 01:20 107 H 23 92 05/15/23 01:10 106 H 24 94 05/15/23 01:01 107 H 25 H 93 05/15/23 01:01 140/100 05/15/23 01:00 107 H 26 H 92 05/15/23 00:50 104 H 23 94 05/15/23 00:40 107 H 24 93 05/15/23 00:30 108 H 26 H 93 05/15/23 00:20 109 H 25 H 94 05/15/23 00:10 105 H 24 94 05/15/23 00:01 105 H 22 95 05/15/23 00:01 128/94 05/15/23 00:00 104 H 22 95 05/14/23 23:50 106 H 22 94 05/14/23 23:40 102 H 21 95 05/14/23 23:30 101 H 22 95 05/14/23 23:20 101 H 24 94 05/14/23 23:10 100 H 22 94 05/14/23 23:01 142/84 H 05/14/23 23:01 103 H 24 95 05/14/23 23:00 102 H 26 H 94 05/14/23 22:50 101 H 25 H 94 05/14/23 22:40 97 H 23 94 05/15/23 03:07 37 C 05/15/23 02:45 107 H 25 H 91 28 05/14/23 23:21 101 H 23 94 28 05/14/23 22:30 98 H 23 93 05/14/23 22:20 97 H 22 94 05/14/23 22:10 96 H 22 94 05/14/23 22:01 149/109 H 05/14/23 22:01 107 H 22 94 05/14/23 22:01 149/109 H 05/14/23 22:00 107 H 23 94 05/14/23 21:50 107 H 24 94 05/14/23 21:40 109 H 23 94 05/14/23 21:30 107 H 22 95 05/14/23 21:20 108 H 23 94 05/14/23 21:10 110 H 23 94 05/14/23 21:01 109 H 23 94 05/14/23 21:01 147/102 H 05/14/23 21:00 109 H 23 94 05/14/23 20:50 109 H 22 95 05/14/23 20:40 110 H 23 94 05/14/23 20:30 112 H 25 H 94 05/14/23 20:20 113 H 25 H 94 05/14/23 20:10 108 H 27 H 94 05/14/23 20:01 110 H 24 94 05/14/23 20:01 131/94 05/14/23 20:00 109 H 23 94 05/14/23 19:50 101 H 25 H 96 05/14/23 19:40 100 H 24 96 05/14/23 22:35 37 C 05/14/23 22:14 97 H 149/109 H 05/14/23 22:00 108 H 147/102 H 05/14/23 20:00 BiPAP 05/14/23 20:21 110 H 24 94 28 Laboratory Results 05/15/23 04:04 05/15/23 04:04 Coding Level of Care Code 66918 CRITICAL CARE 1ST 30-74M Diagnoses CKD (chronic kidney disease) stage 3, GFR 30-59 ml/min N18.30 Stroke I63.9 Slurring of speech R47.81 Hypoxia R09.02 Epigastric abdominal pain R10.13 Eosinophilia D72.19 DVT (deep venous thrombosis) I82.409 Time Spent (min) 42
[2023-05-15] MEDS: FOLIC ACID 1 MG in SYRINGE 9.8 ML IV SCH (07:42)
[2023-05-15] MEDS: FAMOTIDINE 20 MG in SYRINGE 3 ML IV SCH (07:42)
--- NOTE | 2023-05-15 08:12 | Nephrology Progress Note ---
Date of Service May 15, 2023 Assessment & Plan (1) CHERYL (acute kidney injury): Plan: Nonoliguric stage II acute kidney injury likely ischemic ATN multifactorial in the setting of one diuretic dose, mild tachycardia in pt at baseline quite susceptible to CHERYL. Baseline creatinine 1.7-1.9 in pt quite prone to CHERYL based on previous admissions' renal profile. now w/ creatinine 2.6>4 in the wake of IV contrast and now held torsemide. Mildly tachycardic. Admission UA unremarkable for inflammation; no eosinophilia currently or as of spring. serum chemistries acceptable; mild respiratory acidosis addressed w/ bipap. Urine output remains borderline. not fluid overloaded on imaging 05/13; exam is very difficult to assess volume status meaningfully -continue plasmalyte current rate ongoing >>would focus for today on rate control >> uptitrate metoprolol versus other -daily bmp -avoid IV contrast ->>repeat UA ordered >>pls obtain renal imaging u/s versus CT noncon >> BL cysts, probably w/ some complexity -continue to hold torsemide -permissive HTN for now per neuro -no indication for [employer] but cannot rule out need for discussion of it this admission; he is a very poor dialysis candidate Care coordinated w/ Dr Wray. (2) CKD (chronic kidney disease) stage 3, GFR 30-59 ml/min: Plan: baseline creatinine 1.7-1.9 as OP in 2022 > follows w/ Dr Agee (3) Stroke: Plan: per primary service and neuro (4) Bedbound: Plan: -for about 18 months now for clinically unclear reasons; exceptional deconditioning; curious if neurology may have insight/recommend further w/u if/once acute stroke issue stabilized Admission and Anticipated Discharge Date Admission Date: May 12, 2023 Subjective 1 L Plasma-Lyte bolus overnight; started on IV Lopressor in lieu of Coreg yesterday a.m. >> so far heart rate remains in the 100s; blood pressure improved and even elevated at times; failed swallow eval; father at bedside later in AM Review of Systems Review of Systems: Other (pt not answering/interacting) Physical Exam Constitutional: well developed, well nourished, + morbidly obese, + altered mental status, + behavioral limitations, + physical limitations and + lethargic; no acute distress Eyes: EOM intact bilaterally ENMT: Ears: no external ear abnormality Nose: no external nose abnormality Mouth: + dry oral mucous membranes Neck: no nuchal rigidity Respiratory: normal respiratory effort Auscultation: + diminished lung sounds Cardiovascular: Rate/Rhythm: regular rhythm and + tachycardic Extremities: no edema Gastrointestinal (Abdomen): Inspection/Auscultation: normal bowel sounds Percussion/Palpation: abdomen soft; abdomen nontender Musculoskeletal: Extremities: + abnormal strength Skin: no rashes, warm and dry Neurologic: moves 3 of 4 limbs; not speaking Results & Data Vital Signs (Past 12 Hours) Vital Signs Temp Pulse Resp BP Pulse Ox FiO2 05/15/23 07:51 106 H 22 93 28 05/15/23 05:10 105 H 21 94 05/15/23 05:02 114 H 29 H 93 05/15/23 05:02 166/119 H 05/15/23 05:00 108 H 26 H 92 05/15/23 04:50 108 H 19 94 05/15/23 04:40 107 H 24 94 05/15/23 04:30 111 H 22 92 05/15/23 04:20 108 H 20 91 05/15/23 04:10 107 H 25 H 92 05/15/23 04:01 109 H 22 91 05/15/23 04:01 142/104 H 05/15/23 04:00 107 H 22 91 05/15/23 03:50 107 H 25 H 91 05/15/23 03:40 105 H 21 92 05/15/23 03:30 106 H 26 H 92 05/15/23 03:20 108 H 26 H 91 05/15/23 03:10 107 H 24 91 05/15/23 05:16 94 H 132/96 05/15/23 05:07 106 H 166/119 H 05/15/23 03:01 108 H 24 91 05/15/23 03:01 142/99 H 05/15/23 03:00 106 H 19 90 05/15/23 02:50 107 H 23 91 05/15/23 02:40 107 H 26 H 92 05/15/23 02:30 109 H 25 H 92 05/15/23 02:20 109 H 25 H 92 05/15/23 02:10 102 H 21 93 05/15/23 02:01 108 H 26 H 92 05/15/23 02:01 145/110 H 05/15/23 02:00 107 H 26 H 92 05/15/23 01:50 104 H 23 92 05/15/23 01:40 109 H 26 H 91 05/15/23 01:30 109 H 25 H 92 05/15/23 01:20 107 H 23 92 05/15/23 01:10 106 H 24 94 05/15/23 01:01 107 H 25 H 93 05/15/23 01:01 140/100 05/15/23 01:00 107 H 26 H 92 05/15/23 00:50 104 H 23 94 05/15/23 00:40 107 H 24 93 05/15/23 00:30 108 H 26 H 93 05/15/23 00:20 109 H 25 H 94 05/15/23 00:10 105 H 24 94 05/15/23 00:01 105 H 22 95 05/15/23 00:01 128/94 05/15/23 00:00 104 H 22 95 05/14/23 23:50 106 H 22 94 05/14/23 23:40 102 H 21 95 05/14/23 23:30 101 H 22 95 05/14/23 23:20 101 H 24 94 05/14/23 23:10 100 H 22 94 05/14/23 23:01 142/84 H 05/14/23 23:01 103 H 24 95 05/14/23 23:00 102 H 26 H 94 05/14/23 22:50 101 H 25 H 94 05/14/23 22:40 97 H 23 94 05/15/23 03:07 37 C 05/15/23 02:45 107 H 25 H 91 28 05/14/23 23:21 101 H 23 94 28 05/14/23 22:30 98 H 23 93 05/14/23 22:20 97 H 22 94 05/14/23 22:10 96 H 22 94 05/14/23 22:01 149/109 H 05/14/23 22:01 107 H 22 94 05/14/23 22:01 149/109 H 05/14/23 22:00 107 H 23 94 05/14/23 21:50 107 H 24 94 05/14/23 21:40 109 H 23 94 05/14/23 21:30 107 H 22 95 05/14/23 21:20 108 H 23 94 05/14/23 21:10 110 H 23 94 05/14/23 21:01 109 H 23 94 05/14/23 21:01 147/102 H 05/14/23 21:00 109 H 23 94 05/14/23 20:50 109 H 22 95 05/14/23 20:40 110 H 23 94 05/14/23 20:30 112 H 25 H 94 05/14/23 20:20 113 H 25 H 94 05/14/23 20:10 108 H 27 H 94 05/14/23 22:35 37 C 05/14/23 22:14 97 H 149/109 H 05/14/23 22:00 108 H 147/102 H 05/14/23 20:21 110 H 24 94 28 Laboratory Results 05/15/23 04:04 05/15/23 04:04
[2023-05-15] MEDS ORDERED: SODIUM CHLORIDE 0.9% 500 ML IV ONE (08:15)
[2023-05-15 08:44] LABS: iSTAT Allen Test Pass; iSTAT Art Bld Gas pCO2 Correct 40 mmHg (35-46); iSTAT Art Bld Gas pH Corrected 7.417 (7.35-7.45); iSTAT Arterial Blood Gas HCO3 26 meg/L (19-24); iSTAT Arterial Blood Gas pCO2 39 mmHg (35-46); iSTAT Arterial Blood Gas pH 7.43 (7.35-7.45); iSTAT Arterial Blood Gas pO2 61 mmHg (80-95); iSTAT Arterial Blood Gas pO2 C 64; iSTAT Carbon Dioxide 27 mmol/L (24-31); iSTAT FiO2 28 %; iSTAT Hematocrit 42 % (42-52); iSTAT Hemoglobin 14.3 g/dl (14.0-18.0); iSTAT Potassium 4.7 mmol/L (3.3-5.0); iSTAT Site R Radial; iSTAT Sodium 138 mmol/L (135-144)
[2023-05-15] MEDS ORDERED: HEPARIN SOD (PORCINE) 1000 UNIT/ML IV ONE (08:48)
[2023-05-15] MEDS: Heparin IV Adult Wt-Based Standard WITH Bolus Protocol IV SCH ×3 (08:57→10:14)
[2023-05-15] MEDS: HEPARIN SODIUM/DEXTROSE 25,000 UNITS/500 ML BAG IV SCH ×3 (09:00→22:38)
--- NOTE | 2023-05-15 09:16 | Hospitalist Progress Note ---
Date of Service May 15, 2023 Assessment & Plan (1) Slurring of speech: Plan: This is a 57 yo M w/ hypertension,HLD, morbid obesity, chronic diastolic CHF, and ambulatory dysfunction currently wheelchair-bound hx of gout, rheumatoid arthritis, tobacco abuse,chronic back pain, medication non compliance, chronic kidney disease, morbid obesity, obesity hypoventilation syndrome, history of DVT on Coumadin currently living at home is brought in because of strokelike symptoms since around 5 PM he noticed to have slurred speech. Strokelike symptoms Slurred speech CT head in ER - negative CTA head and neck not done because of history of significant CHERYL in the recent past Patient on Coumadin and INR therapeutic TNK was not given because of INR therapeutic Patient states he is severely claustrophobic for MRI scan monitor on telemetry, neurochecks per protocol Speech evaluation and PT OT evaluation-> pt failed swallow study today (05/14/23) Permissive hypertension N.p.o. for now, gentle fluids Echocardiogram ordered and carotid Doppler Echo - EF 60 to 65%. Moderate concentric LVH. RV is grossly normal size. RV systolic function is qualitatively normal. Poorly visualized valvular anatomy. Carotid Doppler - 1. Mild atherosclerosis of the carotid bulbs without hemodynamically significant stenosis. 2. Normal antegrade vertebral flow bilaterally. 05/12 CT head repeat - negative Added aspirin 81 and statin pt is already on coumadin a1c 6.1% LDL 206 Neurology consulted and following - ideally would obtain MRI of brain Overnight pt confused and with labored breathing. Possibly w/ more weakness. pt refused bipap during the day. He was transferred to ICU and currently on bipap 05/14- Pt continues to be in ICU on bipap 05/15 discussed again w/ neurology - recommend to dc asa given pt is on warfarin Hypertension On Coreg and verapamil Reduced Coreg dose to 6.25 for now to allow permissive hypertension We will monitor care per ICU History DVT On warfarin INR therapeutic We will follow PT/INR Chronically kidney disease Creatinine 1.5 on admission- improved from previous Cr worsened now and nephrology consulted We will follow labs - Cr continues to rise history of gout Allopurinol Rheumatoid arthritis Says currently on prednisone 30 mg daily seems to be on tapering dose Looks like he was on 5 to 10 mg daily in the past Tapering now per ICU team Morbid obesity Obesity hypoventilation syndrome Not using BiPAP at home. Says he had nocturnal study done recently and he does not have results yet. Oxygen VBG ok on admission Bipap ordered and pt refused during the day (05/12) Now on bipap in icu Chronic diastolic CHF On torsemide monitor for volume overload nephrology also following at this time History of anemia On iron supplements Hemoglobin stable DVT prophylaxis on Coumadin Disposition - ICU Full code Admission and Anticipated Discharge Date Admission Date: May 12, 2023 Subjective Pt seen in follow up of stroke-like symptoms Transferred to ICU - as pt confused and breathing labored. Pt refused bipap during the day. He opened his eyes but was not able to answer. also, poss. incr. 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 He is able to nod. shake his head no. Denies abdominal pain or chest pain. No headache. He has chronic joint pain. He is opening his eyes but not really moving extremities for me. Failed swallow test yesterday. Cr increased, nephrology following. Per RN, pt's father was visiting. Psych consulted and neuro contacted for follow up. Review of Systems Review of Systems: All systems reviewed & are unremarkable except as noted in Subjective Physical Exam Physical Exam: General- morbidly obese M in NAD, on bipap Head- atraumatic Eyes- PERRL Neck- supple, no JVD, Lungs- clear to auscultation no wheezing or crackles. Heart- regular rhythm; no murmur Abdomen- normal bowel sounds, soft, nontender, no distension. + obese Extremities- mild pretibial edema, no erythema seen. Neuro- awake, able to nod/ shake his head, following simple commands, not moving extremities on my exam today, PERRL,Speech slurred, and he is on bipap Skin- warm & dry Results & Data Results & Data Vital Signs (Past 12 Hours) Vital Signs Temp Pulse Resp BP Pulse Ox FiO2 05/15/23 07:51 106 H 22 93 28 05/15/23 05:10 105 H 21 94 05/15/23 05:02 114 H 29 H 93 05/15/23 05:02 166/119 H 05/15/23 05:00 108 H 26 H 92 05/15/23 04:50 108 H 19 94 05/15/23 04:40 107 H 24 94 05/15/23 04:30 111 H 22 92 05/15/23 04:20 108 H 20 91 05/15/23 04:10 107 H 25 H 92 05/15/23 04:01 109 H 22 91 05/15/23 04:01 142/104 H 05/15/23 04:00 107 H 22 91 05/15/23 03:50 107 H 25 H 91 05/15/23 03:40 105 H 21 92 05/15/23 03:30 106 H 26 H 92 05/15/23 03:20 108 H 26 H 91 05/15/23 03:10 107 H 24 91 05/15/23 05:16 94 H 132/96 05/15/23 05:07 106 H 166/119 H 05/15/23 03:01 108 H 24 91 05/15/23 03:01 142/99 H 05/15/23 03:00 106 H 19 90 05/15/23 02:50 107 H 23 91 05/15/23 02:40 107 H 26 H 92 05/15/23 02:30 109 H 25 H 92 05/15/23 02:20 109 H 25 H 92 05/15/23 02:10 102 H 21 93 05/15/23 02:01 108 H 26 H 92 05/15/23 02:01 145/110 H 05/15/23 02:00 107 H 26 H 92 05/15/23 01:50 104 H 23 92 05/15/23 01:40 109 H 26 H 91 05/15/23 01:30 109 H 25 H 92 05/15/23 01:20 107 H 23 92 05/15/23 01:10 106 H 24 94 05/15/23 01:01 107 H 25 H 93 05/15/23 01:01 140/100 05/15/23 01:00 107 H 26 H 92 05/15/23 00:50 104 H 23 94 05/15/23 00:40 107 H 24 93 05/15/23 00:30 108 H 26 H 93 05/15/23 00:20 109 H 25 H 94 05/15/23 00:10 105 H 24 94 05/15/23 00:01 105 H 22 95 05/15/23 00:01 128/94 05/15/23 00:00 104 H 22 95 08/23 23:50 106 H 22 94 05/14/23 23:40 102 H 21 95 05/14/23 23:30 101 H 22 95 05/14/23 23:20 101 H 24 94 05/14/23 23:10 100 H 22 94 05/14/23 23:01 142/84 H 05/14/23 23:01 103 H 24 95 05/14/23 23:00 102 H 26 H 94 05/14/23 22:50 101 H 25 H 94 05/14/23 22:40 97 H 23 94 05/15/23 03:07 37 C 05/15/23 02:45 107 H 25 H 91 28 05/14/23 23:21 101 H 23 94 28 05/14/23 22:30 98 H 23 93 05/14/23 22:20 97 H 22 94 05/14/23 22:10 96 H 22 94 05/14/23 22:01 149/109 H 05/14/23 22:01 107 H 22 94 05/14/23 22:01 149/109 H 05/14/23 22:00 107 H 23 94 05/14/23 21:50 107 H 24 94 05/14/23 21:40 109 H 23 94 05/14/23 21:30 107 H 22 95 05/14/23 21:20 108 H 23 94 05/14/23 22:35 37 C 05/14/23 22:14 97 H 149/109 H 05/14/23 22:00 108 H 147/102 H Laboratory Results 05/15/23 05/15/23 05/15/23 Range/Units 08:30 04:04 04:04 WBC (4.8-10.8) K/ul RBC (4.70-6.10) M/uL Hgb (14.0-18.0) g/dl POC Hgb 14.3 (14.0-18.0) g/dl Hct (42.0-52.0) % POC Hct 42 (42-52) % MCV (80.0-100.0) fL MCH (25.0-34.0) pg MCHC (32.0-36.0) g/dL RDW Std Deviation (36.4-46.3) fL RDW Coeff of Cheryl (11.5-14.5) % Plt Count (130-400) K/uL MPV (9.4-12.4) fL Immature Gran % (Auto) % Neut % (Auto) % Lymph % (Auto) % [place] % (Auto) % Eos % (Auto) % Baso % (Auto) % Neut # (Auto) (1.40-6.50) K/uL Lymph # (Auto) (1.2-3.4) K/uL [place] # (Auto) (0.11-0.59) K/uL Eos # (Auto) (0-0.50) K/uL Baso # (Auto) (0-0.2) K/uL Immature Gran # (Auto) (0.01-0.20) K/uL PT (9.0-12.0) Seconds INR (0.9-1.1) APTT Pending PTT Ratio Pending Sample Site R Radial POC pH 7.43 (7.35-7.45) POC pCO2 39 (35-46) mmHg POC pO2 61 L (80-95) mmHg POC HCO3 26 H (19-24) derek/L POC Total CO2 27 (24-31) mmol/L POC Base Excess 1.0 (-9-1.8) derek/L ABG pH (Temp Correct) 7.417 (7.35-7.45) ABG pCO2 (Temp Corrct 40 (35-46) mmHg POC ABG pO2 at Pt Temp 64 POC ABG O2 Sat 92.0 (90-95) % Galen Test Pass O2 Delivery Device BIPAP POC O2 Rate 14 POC FiO2 28 % IPAP 16 POC Sodium 138 (135-144) mmol/L Sodium 138 (136-145) mmol/L POC Potassium 4.7 (3.3-5.0) mmol/L Potassium 4.7 (3.5-5.1) mmol/L Chloride 103 (98-107) mmol/L Carbon Dioxide 23 (21-32) mmol/L Anion Gap 12 H (3-11) BUN 66 H (6-23) mg/dl Creatinine 3.98 H D (0.6-1.4) mg/dl Est Cr Clr Drug Dosing 36.5 ml/min Est GFR ( Amer) 18.1 ml/min Est GFR (Non-Af Amer) 15.7 ml/min BUN/Creatinine Ratio 16.6 (10-20) Glucose 116 H (70-99(Fasting)) mg/dl POC Glucose (70-99) mg/dl Calcium 9.6 (8.6-10.3) mg/dl Magnesium 2.4 (1.7-2.4) mg/dl 05/15/23 05/15/23 05/14/23 Range/Units 04:04 04:04 17:49 WBC 11.66 H (4.8-10.8) K/ul RBC 4.75 (4.70-6.10) M/uL Hgb 14.5 (14.0-18.0) g/dl POC Hgb (14.0-18.0) g/dl Hct 45.1 (42.0-52.0) % POC Hct (42-52) % MCV 94.9 (80.0-100.0) fL MCH 30.5 (25.0-34.0) pg MCHC 32.2 (32.0-36.0) g/dL RDW Std Deviation 56.3 H (36.4-46.3) fL RDW Coeff of Cheryl 15.9 H (11.5-14.5) % Plt Count 231 (130-400) K/uL MPV 10.9 (9.4-12.4) fL Immature Gran % (Auto) 0.5 % Neut % (Auto) 80.2 % Lymph % (Auto) 8.7 % [place] % (Auto) 9.2 % Eos % (Auto) 1.1 % Baso % (Auto) 0.3 % Neut # (Auto) 9.35 H (1.40-6.50) K/uL Lymph # (Auto) 1.02 L (1.2-3.4) K/uL [place] # (Auto) 1.07 H (0.11-0.59) K/uL Eos # (Auto) 0.13 (0-0.50) K/uL Baso # (Auto) 0.03 (0-0.2) K/uL Immature Gran # (Auto) 0.06 (0.01-0.20) K/uL PT 18.8 H (9.0-12.0) Seconds INR 1.8 H (0.9-1.1) APTT PTT Ratio Sample Site POC pH (7.35-7.45) POC pCO2 (35-46) mmHg POC pO2 (80-95) mmHg POC HCO3 (19-24) derek/L POC Total CO2 (24-31) mmol/L POC Base Excess (-9-1.8) derek/L ABG pH (Temp Correct) (7.35-7.45) ABG pCO2 (Temp Corrct (35-46) mmHg POC ABG pO2 at Pt Temp POC ABG O2 Sat (90-95) % Galen Test O2 Delivery Device POC O2 Rate POC FiO2 % IPAP POC Sodium (135-144) mmol/L Sodium (136-145) mmol/L POC Potassium (3.3-5.0) mmol/L Potassium (3.5-5.1) mmol/L Chloride (98-107) mmol/L Carbon Dioxide (21-32) mmol/L Anion Gap (3-11) BUN (6-23) mg/dl Creatinine (0.6-1.4) mg/dl Est Cr Clr Drug Dosing ml/min Est GFR ( Amer) ml/min Est GFR (Non-Af Amer) ml/min BUN/Creatinine Ratio (10-20) Glucose (70-99(Fasting)) mg/dl POC Glucose 129 H (70-99) mg/dl Calcium (8.6-10.3) mg/dl Magnesium (1.7-2.4) mg/dl 05/14/23 Range/Units 11:39 WBC (4.8-10.8) K/ul RBC (4.70-6.10) M/uL Hgb (14.0-18.0) g/dl POC Hgb (14.0-18.0) g/dl Hct (42.0-52.0) % POC Hct (42-52) % MCV (80.0-100.0) fL MCH (25.0-34.0) pg MCHC (32.0-36.0) g/dL RDW Std Deviation (36.4-46.3) fL RDW Coeff of Cheryl (11.5-14.5) % Plt Count (130-400) K/uL MPV (9.4-12.4) fL Immature Gran % (Auto) % Neut % (Auto) % Lymph % (Auto) % [place] % (Auto) % Eos % (Auto) % Baso % (Auto) % Neut # (Auto) (1.40-6.50) K/uL Lymph # (Auto) (1.2-3.4) K/uL [place] # (Auto) (0.11-0.59) K/uL Eos # (Auto) (0-0.50) K/uL Baso # (Auto) (0-0.2) K/uL Immature Gran # (Auto) (0.01-0.20) K/uL PT (9.0-12.0) Seconds INR (0.9-1.1) APTT PTT Ratio Sample Site POC pH (7.35-7.45) POC pCO2 (35-46) mmHg POC pO2 (80-95) mmHg POC HCO3 (19-24) derek/L POC Total CO2 (24-31) mmol/L POC Base Excess (-9-1.8) derek/L ABG pH (Temp Correct) (7.35-7.45) ABG pCO2 (Temp Corrct (35-46) mmHg POC ABG pO2 at Pt Temp POC ABG O2 Sat (90-95) % Galen Test O2 Delivery Device POC O2 Rate POC FiO2 % IPAP POC Sodium (135-144) mmol/L Sodium (136-145) mmol/L POC Potassium (3.3-5.0) mmol/L Potassium (3.5-5.1) mmol/L Chloride (98-107) mmol/L Carbon Dioxide (21-32) mmol/L Anion Gap (3-11) BUN (6-23) mg/dl Creatinine (0.6-1.4) mg/dl Est Cr Clr Drug Dosing ml/min Est GFR ( Amer) ml/min Est GFR (Non-Af Amer) ml/min BUN/Creatinine Ratio (10-20) Glucose (70-99(Fasting)) mg/dl POC Glucose 141 H (70-99) mg/dl Calcium (8.6-10.3) mg/dl Magnesium (1.7-2.4) mg/dl Medications Administered Current Inpatient Medications Albuterol (Albuterol Hfa 8 Gm Inhaler) 2 puffs INH Q4 PRN PRN Reason: Wheezing Stop: 06/11/23 04:46 Allopurinol (Allopurinol 300 Mg Tab) 300 mg PO DAILY [facility] Stop: 06/11/23 08:59 Last Admin: 05/14/23 13:00 Dose: Not Given Aspirin (Aspirin 81 Mg Ectab) 81 mg PO QAM [facility] Stop: 06/11/23 12:59 Last Admin: 05/14/23 13:00 Dose: Not Given Atorvastatin Calcium (Atorvastatin 40 Mg Tab) 40 mg PO QAM [facility] Stop: 06/12/23 08:59 Last Admin: 05/14/23 13:00 Dose: Not Given Carvedilol (Carvedilol 6.25 Mg Tab) 6.25 mg PO BIDM [facility] Stop: 06/11/23 07:59 Last Admin: 05/14/23 10:45 Dose: Not Given Ferrous Sulfate (Ferrous Sulfate 325 Mg Tab) 325 mg PO DAILY [facility] Stop: 06/11/23 08:59 Last Admin: 05/14/23 13:00 Dose: Not Given Famotidine 20 mg/ Syringe 5 mls @ 2.5 mls/min IV DAILY [facility] Stop: 06/13/23 08:59 Last Admin: 05/15/23 07:42 Dose: 2.5 mls/min Thiamine HCl 500 mg/ Sodium (Chloride) 55 mls @ 210 mls/hr IV Q8H [facility] Stop: 06/13/23 18:44 Last Infusion: 05/15/23 04:24 Dose: Infused Folic Acid 1 mg/ Syringe 10 mls @ [facility] Stop: 06/14/23 08:59 Last Admin: 05/15/23 07:42 Dose: 5 mls/min Parenteral Electrolytes (Plasma-Lyte A Ph 7.4) 1,000 mls @ 90 mls/hr IV .[id number] [facility] Stop: 06/13/23 19:14 Last Admin: 05/15/23 04:08 Dose: 90 mls/hr Heparin Sodium/Dextrose (Heparin Sodium/Dextrose) 25,000 units in 500 mls @ 46 mls/hr IV .[id number] [facility]; Protocol Stop: 06/14/23 08:49 Last Admin: 05/15/23 09:00 Dose: 2,300 units/hr, 46 mls/hr Labetalol HCl (Labetalol Hcl Iv 5 Mg/Ml 20ml) 5 mg IV Q4H PRN PRN Reason: Blood Pressure - High Stop: 06/12/23 12:24 Last Admin: 05/13/23 21:49 Dose: 5 mg Metoprolol Tartrate (Metoprolol Tartrate 1 Mg/Ml Vial) 5 mg IV Q8 [facility] Stop: 06/13/23 08:29 Last Admin: 05/15/23 05:07 Dose: 5 mg Miconazole Nitrate (Miconazole Nitrate Powder 85 Gm) 1 appln EXT PRN PRN PRN Reason: Affected Skin Folds Stop: 06/11/23 15:10 Nitroglycerin (Nitroglycerin Sl 0.4 Mg/Tab Tab) 0.4 mg SL Q5M PRN PRN Reason: Chest Pain Stop: 06/11/23 04:46 Prednisone (Prednisone 10 Mg Tablet) 20 mg PO DAILY [facility]; Taper Stop: 05/25/23 08:59 Torsemide (Torsemide 20 Mg Tab) 20 mg PO [facility] Stop: 06/11/23 08:59 Last Admin: 05/12/23 09:16 Dose: 20 mg Verapamil HCl (Verapamil Hcl 240 Mg Tabcr) 240 mg PO [facility] Stop: 06/11/23 08:59 Last Admin: 05/12/23 09:17 Dose: 240 mg Warfarin Sodium (Warfarin Sod 4 Mg Tab) 4 mg PO DAILY@1600 [facility] Stop: 06/11/23 15:59 Last Admin: 05/14/23 15:49 Dose: Not Given
[2023-05-15 09:27] LABS: Partial Thromboplastin Ratio 1.6
[2023-05-15 09:30] LABS: Partial Thromboplastin Time 45.9 Seconds (21.0-31.0)
--- NOTE | 2023-05-15 10:27 | Psychiatric Consultation ---
Date of Consultation May 15, 2023 Impression / Recommendations Impression Diagnostically very difficult to assess for the presence of any co-occurring psychiatric conditions given his current BiPap use and possible aphasia. It's unclear what he understands or even his orientation to determine if encephalopathy is present. Certainly patients who experience medical and especially ICU admission can develop PTSD-like symptoms or mood changes due to medical issues/extended hospitalization and this can be better assessed as he can start to communicate verbally or non-verbally consistently. Post-stroke mood changes, including depression, are also very common and should be followed over time. Agree with ongoing stroke workup and brain MRI when able given multiple risk factors. Functional neurological disorder can sometimes mimic stroke or other neurological deficits but is a diagnosis of exclusion after other organic causes have been ruled out and typically would not present with this level of aphasia. Overall, I spent a total of 35 minutes with this case including review of chart records, review of labwork, review of head CT, direct evaluation of the patient at bedside, discussion with the psychiatric liason during clinical rounds, review of collateral historian information from the family and documentation in the electronic health record. (1) Slurring of speech: (2) Stroke: Plan -Psych liason will continue to follow and re-assess Judson's mood when he is more alert and better able to communicate verbally or non-verbally -No indication for psychiatric medication at this time -Agree with brain MRI when he is able to safely tolerate this Psych History Identifying Data 57 yo man with history of HTN, obesity, RUTH, anemia, obesity hypoventilation syndrome, HLD, CHF, gout, RA, chronic back pain, tobacco use, CKD, hx DVT on coumadin, wheelchair-bound admitted medically for slurred speech and concern for stroke. Psychiatry consulted for "psychiatric issues". Chief Complaint non-verbal History of Present Illness Judson was admitted medically due to concern for possible stroke after developing slurred speech at home. Head CT was done in the ED but brain MRI has not been able to be completed yet due to ongoing need for BiPap along with claustrophobia per neurology notes. Concern from critical care/ICU team about possible role for depression impacting his presentation but unfortunately he's been unable to communicate, possibly due to requiring BiPap versus aphasia? He was previously seen by Dr. Morgan by our consult service on 09/16/2022 while admitted for suspected encephalopathy. During that evaluation he and his denied any psychiatric history of depression, anxiety or other mental health conditions, no history of prior psychiatric hospitalizations, no history of SI or suicide attempts. On evaluation this morning he opens his eyes briefly and is lying in bed wearing Bipap mask. Attempts to communicate via having him shake his head, squeeze psych liason's hand, or respond verbally are unsuccessful making assessment of any current mood symptoms extremely difficult. Allergies Allergy/AdvReac Type Severity Reaction Status Date / Time Iodinated Contrast Media Allergy Hives Verified 05/12/23 00:10 iodine Allergy Hives Verified 05/12/23 00:10 Home Medications Medication Instructions Recorded Confirmed Type verapamil 240 mg 24 hr 240 mg PO QAM 08/29/22 05/12/23 History capsule,extended release carvedilol 12.5 mg tablet 12.5 mg PO BID #60 tabs 10/07/22 05/12/23 Rx torsemide 20 mg tablet 20 mg PO QAM #30 tabs 10/07/22 05/12/23 Rx prednisone 10 mg tablet 10 mg PO UD #75 tabs 10/25/22 05/12/23 Rx albuterol sulfate 90 mcg/actuation 2 puff inhalation Q4 PRN Wheezing 05/12/23 05/12/23 History aerosol inhaler allopurinol 300 mg tablet 300 mg PO DAILY 05/12/23 05/12/23 History ferrous sulfate 325 mg (65 mg 325 mg PO DAILY 05/12/23 05/12/23 History iron) tablet (FeroSul) sildenafil 50 mg tablet 50 mg PO DAILY PRN .. 05/12/23 05/12/23 History warfarin 2 mg tablet 4 mg PO DAILY 05/12/23 05/12/23 History Patient History Medical History CHERYL (acute kidney injury) recurrent Anemia Bedbound since 11/2021 for unclear causes CKD (chronic kidney disease) stage 3, GFR 30-59 ml/min DVT (deep venous thrombosis) Gout Morbid obesity Obesity hypoventilation syndrome Social History Smoking Status: Former smoker Tobacco Type: Cigarettes and E-cigarettes / Vaping Do You Dip or Chew Tobacco: No; Hx Alcohol Use: No Hx Substance Use: No Preferred Language: Romanian Communication Ability: Impaired Pressure Sealer And Tester Required: No Beliefs That Will Affect Care: None Current Living Situation: Spouse Other Information That Helps Us Care for You: No Feels Safe at Home: Yes Safety Concerns: Feels Safe At This Time Assistive Devices: Scooter/Electric Scooter Physical Exam Psychiatric: Eye Contact: + poor eye contact Speech: + mute Affect: + constricted affect Vital Signs (Past 24 Hours): Last Vital Signs Temp 37 C 05/15/23 03:07 Pulse 106 H 05/15/23 07:51 Resp 22 05/15/23 07:51 BP 132/96 05/15/23 05:16 Pulse Ox 93 05/15/23 07:51 O2 Del Method BiPAP 05/14/23 20:00 O2 Flow Rate 98 05/13/23 03:26 FiO2 28 05/15/23 07:51 Review of Systems Unobtainable due to reduced consciousness Results & Data (PSY) Medications Administered Allopurinol (Allopurinol 300 Mg Tab) 300 mg PO DAILY [facility] Stop: 06/11/23 08:59 Last Admin: 05/14/23 13:00 Dose: Not Given Documented By: Admin: 05/13/23 08:35 Dose: Not Given Documented By: Admin: 05/12/23 09:18 Dose: 300 mg Documented By: Aspirin (Aspirin 81 Mg Ectab) [address] [facility] Stop: 06/11/23 12:59 Last Admin: 05/14/23 13:00 Dose: Not Given Documented By: Admin: 05/13/23 08:36 Dose: Not Given Documented By: Admin: 05/12/23 16:17 Dose: 81 mg Documented By: Atorvastatin Calcium (Atorvastatin 40 Mg Tab) [facility] [place] Stop: 06/12/23 08:59 Last Admin: 05/14/23 13:00 Dose: Not Given Documented By: Admin: 05/13/23 08:36 Dose: Not Given Documented By: TIM Carvedilol (Carvedilol 6.25 Mg Tab) [facility] [place] Stop: 06/11/23 07:59 Last Admin: 05/14/23 10:45 Dose: Not Given Documented By: Admin: 05/13/23 16:02 Dose: Not Given Documented By: Admin: 05/13/23 08:35 Dose: Not Given Documented By: Admin: 05/12/23 16:18 Dose: 6.25 mg Documented By: Admin: 05/12/23 09:17 Dose: 6.25 mg Documented By: Ferrous Sulfate (Ferrous Sulfate 325 Mg Tab) 325 mg PO DAILY [facility] Stop: 06/11/23 08:59 Last Admin: 05/14/23 13:00 Dose: Not Given Documented By: Admin: 05/13/23 08:36 Dose: Not Given Documented By: Admin: 05/12/23 09:16 Dose: 325 mg Documented By: Famotidine 20 mg/ Syringe 5 mls @ 2.5 mls/min IV DAILY [facility] Stop: 06/13/23 08:59 Last Admin: 05/15/23 07:42 Dose: 2.5 mls/min Documented By: Admin: 05/14/23 08:42 Dose: 2.5 mls/min Documented By: REBECCA Thiamine HCl 500 mg/ Sodium (Chloride) 55 mls @ 210 mls/hr IV Q8H [facility] Stop: 06/13/23 18:44 Last Infusion: 05/15/23 04:24 Dose: 0 mls/hr Documented By: Admin: 05/15/23 04:08 Dose: 210 mls/hr Documented By: Infusion: 05/14/23 20:20 Dose: 0 mls/hr Documented By: Admin: 05/14/23 19:58 Dose: 210 mls/hr Documented By: TEREZA Folic Acid 1 mg/ Syringe 10 mls @ 5 mls/min IV QAM [facility] Stop: 06/14/23 08:59 Last Admin: 05/15/23 07:42 Dose: 5 mls/min Documented By: HEIDIK Parenteral Electrolytes (Plasma-Lyte A Ph 7.4) 1,000 mls @ 90 mls/hr IV .Q11H7M [facility] Stop: 06/13/23 19:14 Last Admin: 05/15/23 04:08 Dose: 90 mls/hr Documented By: Infusion: 05/15/23 04:08 Dose: 90 mls/hr Documented By: Admin: 05/14/23 19:35 Dose: 90 mls/hr Documented By: TEREZA Heparin Sodium/Dextrose (Heparin Sodium/Dextrose) 25,000 units in 500 mls @ 46 mls/hr IV .[id number] [facility]; Protocol Stop: 06/14/23 08:49 Last Admin: 05/15/23 09:00 Dose: 2,300 units/hr, 46 mls/hr Documented By: RASHAD Co-signed By: SHANNON Labetalol HCl (Labetalol Hcl Iv 5 Mg/Ml 20ml) 5 mg IV Q4H PRN PRN Reason: Blood Pressure - High Stop: 06/12/23 12:24 Last Admin: 05/13/23 21:49 Dose: 5 mg Documented By: TEREZA Co-signed By: YUE Metoprolol Tartrate (Metoprolol Tartrate 1 Mg/Ml Vial) 5 mg IV Q8 [facility] Stop: 06/13/23 08:29 Last Admin: 05/15/23 05:07 Dose: 5 mg Documented By: Admin: 05/14/23 22:00 Dose: 5 mg Documented By: Admin: 05/14/23 13:57 Dose: 5 mg Documented By: Admin: 05/14/23 08:27 Dose: 5 mg Documented By: REBECCA Torsemide (Torsemide 20 Mg Tab) [address] [facility] Stop: 06/11/23 08:59 Last Admin: 05/12/23 09:16 Dose: 20 mg Documented By: Verapamil HCl (Verapamil Hcl 240 Mg Tabcr) [address] [facility] Stop: 06/11/23 08:59 Last Admin: 05/12/23 09:17 Dose: 240 mg Documented By: Warfarin Sodium (Warfarin Sod 4 Mg Tab) 4 mg PO DAILY@1600 [facility] Stop: 06/11/23 15:59 Last Admin: 05/14/23 15:49 Dose: Not Given Documented By: Admin: 05/13/23 16:02 Dose: Not Given Documented By: Admin: 05/12/23 16:17 Dose: 4 mg Documented By: Coding Level of Care Code 76259 IN/OBS CONSULT LVL 2,35M Diagnoses Slurring of speech R47.81 Stroke I63.9
[2023-05-15] MEDS: ASPIRIN 81 MG ECTAB PO SCH (11:00)
[2023-05-15] MEDS: ATORVASTATIN 40 MG TAB PO SCH (11:00)
[2023-05-15] MEDS: predniSONE 10 MG TABLET PO SCH (11:00)
[2023-05-15] MEDS: allopurinoL 300 MG TAB PO SCH (11:00)
[2023-05-15] MEDS: FERROUS SULFATE 325 MG TAB PO SCH (11:00)
[2023-05-15 12:21] LABS: Chloride Random Urine < 15 mmol/L; Potassium Random Urine 75.2 mmol/L; Sodium Random Urine 27 mmol/L
[2023-05-15 12:29] LABS: Creatinine Urine Random 198.6 mg/dl
--- NOTE | 2023-05-15 12:46 | Ultrasound Report ---
RENAL ULTRASOUND HISTORY: Acute kidney injury CHERYL COMPARISON: 10/19/2022 FINDINGS: Right kidney: 13.8 cm. No hydronephrosis. Diffuse cortical thinning with increased parenchymal echoge nicity. 4.9 cm cyst of the inferior pole. Left kidney: 14.5 cm. No hydronephrosis. Diffuse cortical thinning with increased parenchymal echogen icity. Left renal cysts measure up to 3 cm. Bladder: Decompressed with Starks catheter. Limited exam secondary to patient body habitus. IMPRESSION: 1. Limited exam secondary to patient body habitus. 2. Evidence of chronic medical renal disease. 3. Probable complex and simple cysts of the kidneys are suboptimally visualized. ACT 112: Negative or not required by law. Electronically signed by: Mayito Garza M.D. 05/15/2023 12:44 PM
--- NOTE | 2023-05-15 15:55 | Neurology Progress Note ---
Date of Service May 15, 2023 Assessment & Plan (1) Stroke: Patient continues to have altered mental status despite supportive care with L sided weakness and expressive aphasia complicated by BiPAP. He does appear to be able to reliably follow commands. His mental status is fluctuating consistent with encephalopathy which is presumed multifactorial based on his BUN, hypercarbia and presumed stroke. As there is no clear stroke localization - L sided weakness + language I suspect it may be embolic which would also explain the encephalopathy. 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 Would stop aspirin given the risk of bleeding. Would try to obtain MRI if possible but otherwise continue supportive care. Would consider EEG to determine if there is any focality to his encephalopathy. -- Stop aspirin -- Does not need permissive HTN -- Continue anticoagulation as ordered -- MRI if possible -- Routine EEG would be helpful -- Continue supportive care Subjective Telehealth Information I performed this visit using a real-time telehealth connection between my location and the patients location ([facility]). After connecting through interactive tele-video, patient was identified by name and date of and/or wristband check.Patient (or authorized healthcare investment representative) was informed that this was a telemedicine visit and it was being conducted confidentially over secure lines. My office door was closed and no one else was present in the room with me.Patient (or authorized healthcare investment representative) provided consent to proceed with the visit, expressed an understanding of privacy and security of the telemedicine visit, and gave permission to have a hospital investment representative in the room in order to assist with the visit and to conduct portions of the visit, as needed. I informed the patient (or authorized healthcare investment representative) that I reviewed their record and presented the opportunity for them to ask any questions regarding the visit today. The patient agreed to participate. Judson Bowie is a 57 yo M presenting initially on 05/12 for slurred speech in the setting of bipap noncompliance. Since admission he was noted to have aphasia and L sided weakness with waxing/waning mental status despite supportive care with BiPAP. He is otherwise unable to contribute to the history. Prior notes from Dr. Hernandez reviewed. Review of Systems Unable to obtain due to bipap and aphasia Physical Exam Alerts briefly to voice but requires attention to maintain alertness. Will open eyes to voice and seems to nod his head appropriately to questions when asked. No movement noted on the left side including distal movement in the hands and feet. Distal movement of the R hand and foot intact but no antigravity movement noted. No abnormal movements. Results & Data Vital Signs (Past 12 Hours) Vital Signs Pulse Resp BP Pulse Ox O2 Del Method O2 Flow Rate FiO2 05/15/23 14:01 98 H 22 125/95 94 BiPAP 28 05/15/23 13:00 95 H 20 148/106 H 93 BiPAP 28 05/15/23 12:01 108 H 26 H 145/73 H 91 Nasal Cannula 4 05/15/23 11:01 108 H 30 H 147/107 H 93 Nasal Cannula 4 05/15/23 10:01 106 H 27 H 142/97 H 94 Nasal Cannula 4 05/15/23 09:01 104 H 25 H 92 BiPAP 40 05/15/23 09:00 102 H 23 152/111 H 92 05/15/23 08:00 105 H 25 H 121/94 90 BiPAP 40 05/15/23 07:01 102 H 23 139/102 H 95 05/15/23 12:20 95 H 145/73 H 05/15/23 12:01 110 H 147/107 H 05/15/23 07:51 106 H 22 93 28 05/15/23 05:10 105 H 21 94 05/15/23 05:02 114 H 29 H 93 05/15/23 05:02 166/119 H 05/15/23 05:00 108 H 26 H 92 05/15/23 04:50 108 H 19 94 05/15/23 04:40 107 H 24 94 05/15/23 04:30 111 H 22 92 05/15/23 04:20 108 H 20 91 05/15/23 04:10 107 H 25 H 92 05/15/23 04:01 109 H 22 91 05/15/23 04:01 142/104 H 05/15/23 04:00 107 H 22 91 05/15/23 05:16 94 H 132/96 05/15/23 05:07 106 H 166/119 H Laboratory Results Abnormal lab results 05/14/23 05/15/23 05/15/23 Range/Units 17:49 04:04 04:04 WBC 11.66 H (4.8-10.8) K/ul RDW Std Deviation 56.3 H (36.4-46.3) fL RDW Coeff of Cheryl 15.9 H (11.5-14.5) % Neut # (Auto) 9.35 H (1.40-6.50) K/uL Lymph # (Auto) 1.02 L (1.2-3.4) K/uL Otoe # (Auto) 1.07 H (0.11-0.59) K/uL PT 18.8 H (9.0-12.0) Seconds INR 1.8 H (0.9-1.1) APTT (21.0-31.0) Seconds POC pO2 (80-95) mmHg POC HCO3 (19-24) derek/L Anion Gap (3-11) BUN (6-23) mg/dl Creatinine (0.6-1.4) mg/dl Glucose (70-99(Fasting)) mg/dl POC Glucose 129 H (70-99) mg/dl Urine Osmolality (500-800) mOsm/kg 05/15/23 05/15/23 05/15/23 Range/Units 04:04 04:04 08:30 WBC (4.8-10.8) K/ul RDW Std Deviation (36.4-46.3) fL RDW Coeff of Cheryl (11.5-14.5) % Neut # (Auto) (1.40-6.50) K/uL Lymph # (Auto) (1.2-3.4) K/uL Otoe # (Auto) (0.11-0.59) K/uL PT (9.0-12.0) Seconds INR (0.9-1.1) APTT 45.9 H* (21.0-31.0) Seconds POC pO2 61 L (80-95) mmHg POC HCO3 26 H (19-24) derek/L Anion Gap 12 H (3-11) BUN 66 H (6-23) mg/dl Creatinine 3.98 H D (0.6-1.4) mg/dl Glucose 116 H (70-99(Fasting)) mg/dl POC Glucose (70-99) mg/dl Urine Osmolality (500-800) mOsm/kg 05/15/23 Range/Units 10:35 WBC (4.8-10.8) K/ul RDW Std Deviation (36.4-46.3) fL RDW Coeff of Cheryl (11.5-14.5) % Neut # (Auto) (1.40-6.50) K/uL Lymph # (Auto) (1.2-3.4) K/uL Otoe # (Auto) (0.11-0.59) K/uL PT (9.0-12.0) Seconds INR (0.9-1.1) APTT (21.0-31.0) Seconds POC pO2 (80-95) mmHg POC HCO3 (19-24) derek/L Anion Gap (3-11) BUN (6-23) mg/dl Creatinine (0.6-1.4) mg/dl Glucose (70-99(Fasting)) mg/dl POC Glucose (70-99) mg/dl Urine Osmolality 384 L (500-800) mOsm/kg Diagnostic Findings CT head - Unremarkable
[2023-05-15 16:40] LABS: Calcium 9.2 mg/dl (8.6-10.3); Potassium 4.6 mmol/L (3.5-5.1)
[2023-05-15 16:48] LABS: BUN Creatinine Ratio 16.2 (10-20); Creatinine Clr Calc Pharmacy 33.2 ml/min; Est GFR (African American) 16.1 ml/min; Est GFR (Non-African American) 13.9 ml/min
[2023-05-15 16:50] LABS: Appearance Urine Turbid (Clear); Blood Urine 3+ (Negative); Color Urine Dark Yellow; Glucose Urine UA Negative (Negative); Ketones Urine Negative (Negative); Leukocyte Esterase Urine 2+ (Negative); Nitrite Urine Negative (Negative); Protein Urine Trace (Negative); Specific Gravity Urine 1.019 (1.000-1.030); Urobilinogen Urine Negative (Negative); WBC Urine Automated >30 /hpf (0-5)
[2023-05-15 17:08] LABS: Partial Thromboplastin Ratio 1.7
[2023-05-15 17:09] LABS: Partial Thromboplastin Time 46.8 Seconds (21.0-31.0)
[2023-05-15 17:09] LABS: Bilirubin Urine 1+ (Negative)
[2023-05-15 17:19] LABS: Amorphous Sediment Urine Present (None Prsent)
[2023-05-15 17:20] LABS: Bacteria Urine Automated 2+ (Negative)
--- NOTE | 2023-05-15 18:21 | XRay Report ---
XR chest 1V portable CLINICAL HISTORY: Hypoxia requiring bipap and coresafe placement TECHNIQUE: Single frontal radiograph of the chest was obtained. Comparison: Comparison is made to chest radiograph 05/13/2023 FINDINGS: Enteric tube terminates within the stomach. Cardiomegaly is noted. Lungs are underinflated but clear. No evidence of pleural effusion or pneumothorax. IMPRESSION: Satisfactory appearance of enteric tube. ACT 112: Negative or not required by law. Electronically signed by: Taz Wang M.D. 05/15/2023 6:19 PM
[2023-05-15] MEDS: cefTRIAXone SODIUM 2,000 MG in DEXTROSE 5% 50 ML IV SCH (18:25)
[2023-05-16] MEDS: PLASMA-LYTE A 1,000 ML IV SCH ×3 (02:47→20:49)
[2023-05-16] MEDS: THIAMINE HCL 500 MG in SODIUM CHLORIDE 0.9% 50 ML IV SCH ×3 (03:53→20:49)
[2023-05-16] MEDS: METOPROLOL TARTRATE 1 MG/ML VIAL IV SCH ×4 (04:58→23:35)
[2023-05-16 05:02] LABS: Hematocrit (blood only) 39.6 % (42.0-52.0); Hemoglobin 12.7 g/dl (14.0-18.0); Mean Corpuscular Hemoglobin 30.7 pg (25.0-34.0); Mean Corpuscular Hgb Conc 32.1 g/dL (32.0-36.0); Mean Corpuscular Volume 95.7 fL (80.0-100.0); Mean Platelet Volume 11.1 fL (9.4-12.4); Platelet Count 239 K/uL (130-400); RDW Coefficient of Variation 16.2 % (11.5-14.5); RDW Standard Deviation 57.1 fL (36.4-46.3); Red Blood Count 4.14 M/uL (4.70-6.10); White Blood Count 9.73 K/ul (4.8-10.8)
[2023-05-16 05:14] LABS: BUN Creatinine Ratio 17.1 (10-20); Calcium 9.3 mg/dl (8.6-10.3); Creatinine Clr Calc Pharmacy 33.7 ml/min; Est GFR (African American) 16.4 ml/min; Est GFR (Non-African American) 14.1 ml/min; Magnesium 2.6 mg/dl (1.7-2.4); Phosphorus 4.9 mg/dl (2.5-4.9); Potassium 4.4 mmol/L (3.5-5.1)
[2023-05-16 05:31] LABS: INR 1.7 (0.9-1.1); Partial Thromboplastin Ratio 1.7; Prothrombin Time 18.2 Seconds (9.0-12.0)
[2023-05-16 05:54] LABS: Partial Thromboplastin Time 46.7 Seconds (21.0-31.0)
--- NOTE | 2023-05-16 07:55 | Critical Care Progress Note ---
Date of Service May 16, 2023 Assessment & Plan (1) CKD (chronic kidney disease) stage 3, GFR 30-59 ml/min: (2) Stroke: (3) Slurring of speech: (4) Hypoxia: (5) Epigastric abdominal pain: (6) Eosinophilia: (7) DVT (deep venous thrombosis): Plan Reason Critically Ill: 57 YOM admitted for stroke like symptoms currently with worsening of aphasia, left sided weakness and tachypnea on BiPAP with concern for respiratory failure. Neuro -CVA/Stroke like symptoms, Aphasia --Encephalopathy -Acute on chronic stroke symptoms- with possible extension of stroke vs. uremic encephalopathy or combination - On initial evaluation not moving his left side without coaxing- on arrival to ICU and during transport patient spontaneously moving left arm and left leg - remains aphasic - CT head negative x2, no signs of bleeding - MRI would be beneficial- Consider sedating for completion of study if respiratory efforts improve -Stroke system started more than 24 hours ago --> not TNK candidate - No Carotid Stenosis -TSH, sodium, calcium, glucose within normal limit on 05/15/2023 -Follow-up autoimmune work-up -ESR and CRP are elevated for the patient which is nonspecific Neurology on board Cardiac -HTN, HLD - Allow for permissive HTN We will start the patient on metoprolol IV given that he failed swallow eval - High Dose statin therapy - 40mg Atorvastatin Respiratory -Acute on Chronic Respiratory failure, Obesity Hypoventilation syndrome -Mild hypercapnia- 7.32/55/117/28- continue with CPAP/BiPAP GI -Morbid Obesity - no acute needs RENAL/LYTES - CHERYL on CKD - Follow daily BMPs- avoid nephrotoxic agents as able and if needed minimize exposure time - Nephrology on board - No acute need - Starks to gravity ENDO - No acute needs - HGB A1C 5.5 range -Continue with ICU hypoglycemia protocol HEME -Hx of Eosinophilia on chronic prednisone, HX of DVT History of eosinophil count as high as 3400 10/17/2022 - Follows with Allergy- on steroid taper -On prednisone taper since 04/28/2023. Was started on 40 mg and was supposed to decrease by 10 mg every week. --DVT on chronic warfarin follow daily INR to goal 2-2.5 ID - --Dirty urine Started on Rocephin 05/15/2023 --Prophylaxis VTE: Heparin drip GI: Pepcid Lines: Peripheral Diet: N.p.o. --> tube feeds Plan: In/out: +2.6 L, urine output 420 mL, +5 L since coming to the hospital Urine is dirty and patient is spiking low-grade fever, continue with Rocephin for at least 7 days Patient's creatinine seems to be plateaued. I did notice that patient's hemoglobin is usually around 10. He came in with hemoglobin of 15. This mild incline that he was severely dehydrated. Chest x-ray does not show any significant vascular congestion. Okay to continue with IV fluids at 100 mL/h We will start the patient on trophic tube feeds today Decrease prednisone to 20 mg on a daily basis for 7 days followed by 10 mg for 7 days and then stop I have personally spent 38 minutes of critical care time in the direct manageme nt of this patient. This is a life/limb threatening event. This includes time spent evaluating sheryl ent, direct bedside care, chart review, placing orders, interpretation of diagnostic studies, discussion with consultants, patient, and family members, as well as other required patient management activities. This time is exclusive of all separately billable procedures, and teaching time and separate from and in addition to any other critical care service time. Please note the above document was generated using voice recognition software. It may contain grammatical, syntax or spelling errors. Admission and Anticipated Discharge Date Admission Date: May 12, 2023 Subjective Patient seen and examined at bedside. No acute distress. No adverse events overnight He was on BiPAP with NGT. Saturation was 94% on 28% FiO2 He is again easily arousable. Denies any headache, no chest pain, no belly pain Does complain of shortness of breath. Asking for food Review of Systems Review of Systems: Unobtainable due to mental health condition and Unobtainable due to cognitive status Physical Exam Physical Exam: Constitutional: No acute distress HEENT: EOMI, PERRLA Respiratory system: Decreased air entry bilaterally, no wheeze, no rhonchi, no crackles CVS: S1-S2 positive, no murmurs or gallops, distant heart sounds Abdomen: Soft, nontender, nondistended, positive bowel sounds x4, obese Extremities: +2 pulses bilaterally radialis/ dorsalis pedis, no cyanosis, no edema Neuro: Awake and alert, bilateral lower extremity 3 out of 5, right upper extremity 3 out of 5, left upper extremity 0 out of 5, Babinski negative Psych: Flat mood and affect G/U: Positive Starks Skin: no rashes, warm and dry Lymphatic: no cervical or axillary lymphadenopathy Results & Data Results & Data Vital Signs (Past 12 Hours) Vital Signs Temp Pulse Resp BP Pulse Ox O2 Del Method FiO2 05/16/23 06:00 95 H 23 96 05/16/23 06:00 143/103 H 05/16/23 05:50 95 H 25 H 96 05/16/23 05:40 92 H 22 95 05/16/23 05:30 93 H 24 94 05/16/23 05:20 87 21 95 05/16/23 05:10 87 19 94 05/16/23 05:01 88 22 93 05/16/23 05:01 145/84 H 05/16/23 05:00 91 H 18 94 05/16/23 04:50 95 H 20 95 05/16/23 05:02 88 145/84 H 05/16/23 04:58 95 H 151/100 H 05/16/23 04:40 101 H 23 94 05/16/23 04:30 91 H 19 92 05/16/23 04:20 101 H 23 92 05/16/23 04:10 103 H 15 94 05/16/23 04:01 151/100 H 05/16/23 04:01 100 H 20 94 05/16/23 04:00 101 H 24 94 05/16/23 03:50 100 H 24 95 05/16/23 03:40 99 H 23 94 05/16/23 03:30 98 H 24 94 05/16/23 03:20 97 H 26 H 94 05/16/23 03:10 97 H 25 H 92 05/16/23 03:01 153/97 H 05/16/23 03:01 96 H 24 92 05/16/23 03:00 98 H 20 93 05/16/23 02:50 98 H 24 92 05/16/23 02:40 97 H 22 93 05/16/23 02:30 98 H 23 95 05/16/23 02:53 99 H 23 93 28 05/16/23 02:51 37.8 C H 05/16/23 02:20 98 H 20 95 05/16/23 02:10 98 H 23 94 05/16/23 02:01 98 H 23 95 05/16/23 02:01 158/103 H 05/16/23 02:00 97 H 23 96 05/16/23 01:50 97 H 21 95 05/16/23 01:40 93 H 19 94 05/16/23 01:30 99 H 24 96 05/16/23 01:20 95 H 21 95 05/16/23 01:10 96 H 22 96 05/16/23 01:00 95 H 21 97 05/16/23 01:00 153/97 H 05/16/23 00:50 95 H 21 96 05/16/23 00:40 93 H 20 96 05/16/23 00:30 95 H 21 96 05/16/23 00:20 93 H 21 95 05/16/23 00:10 93 H 25 H 97 05/16/23 00:01 94 H 22 96 05/16/23 00:01 146/98 H 05/16/23 00:00 92 H 20 96 05/15/23 23:50 102 H 24 95 05/15/23 23:40 103 H 25 H 96 05/15/23 23:30 103 H 23 96 05/15/23 23:20 102 H 26 H 95 05/15/23 23:10 103 H 25 H 95 05/15/23 23:01 104 H 25 H 96 05/15/23 23:01 158/107 H 05/15/23 23:00 104 H 23 96 05/15/23 22:50 105 H 26 H 96 05/15/23 22:40 101 H 24 95 05/15/23 22:30 104 H 21 98 05/15/23 22:20 99 H 24 94 05/15/23 22:10 101 H 20 95 05/15/23 22:01 156/97 H 05/15/23 22:01 100 H 23 96 05/15/23 22:00 100 H 23 96 05/15/23 21:50 102 H 21 96 05/15/23 21:40 103 H 25 H 96 05/15/23 21:30 102 H 23 96 05/15/23 21:20 101 H 24 95 05/15/23 21:10 103 H 26 H 96 05/15/23 21:01 103 H 25 H 97 05/15/23 21:01 150/102 H 05/15/23 21:00 100 H 24 96 05/15/23 20:50 101 H 22 96 05/15/23 20:40 100 H 23 97 05/16/23 00:05 95 H 146/98 H 05/15/23 23:49 103 H 158/107 H 05/15/23 23:33 37.7 C H 05/15/23 22:42 103 H 22 96 28 05/15/23 20:30 101 H 24 96 05/15/23 20:20 101 H 20 94 05/15/23 20:10 99 H 24 97 05/15/23 20:00 99 H 24 96 05/15/23 20:00 148/95 H 05/15/23 20:36 37.9 C H 05/15/23 20:30 99 H 23 96 28 05/15/23 20:24 BiPAP Laboratory Results 05/16/23 04:38 05/16/23 04:38 Coding Level of Care Code 09791 CRITICAL CARE 1ST 30-74M Diagnoses CKD (chronic kidney disease) stage 3, GFR 30-59 ml/min N18.30 Stroke I63.9 Slurring of speech R47.81 Hypoxia R09.02 Epigastric abdominal pain R10.13 Eosinophilia D72.19 DVT (deep venous thrombosis) I82.409 Time Spent (min) 38
--- NOTE | 2023-05-16 09:02 | XRay Report ---
XR chest 1V portable CLINICAL HISTORY: f/u TECHNIQUE: Single frontal radiograph of the chest was obtained. Comparison: Comparison is made to chest radiograph 05/15/2023 FINDINGS: Enteric tube is stable. Cardiomegaly is noted. Lungs are underinflated but clear. No evidence of pleu ral effusion or pneumothorax. IMPRESSION: Stable appearance of enteric tube. ACT 112: Negative or not required by law. Electronically signed by: Taz Wang M.D. 05/16/2023 9:01 AM
[2023-05-16] MEDS: allopurinoL 300 MG TAB PO SCH (09:05)
[2023-05-16] MEDS: FOLIC ACID 1 MG in SYRINGE 9.8 ML IV SCH (09:06)
[2023-05-16] MEDS: ATORVASTATIN 40 MG TAB PO SCH (09:06)
[2023-05-16] MEDS: FAMOTIDINE 20 MG in SYRINGE 3 ML IV SCH (09:06)
[2023-05-16] MEDS: FERROUS SULFATE 325 MG TAB PO SCH (09:07)
[2023-05-16] MEDS: predniSONE 10 MG TABLET PO SCH (09:07)
[2023-05-16] MEDS: carvediloL 6.25 MG TAB PO SCH ×2 (10:50→16:23)
[2023-05-16] MEDS: NOVASOURCE RENAL 2.0 CAL 1000ML BAG NG SCH (11:43)
[2023-05-16] MEDS: TUBE FEEDING WATER FLUSH NG SCH ×4 (11:44→23:35)
[2023-05-16] MEDS: HEPARIN SODIUM/DEXTROSE 25,000 UNITS/500 ML BAG IV SCH (12:13)
--- NOTE | 2023-05-16 14:38 | Nephrology Progress Note ---
Date of Service May 16, 2023 Assessment & Plan (1) CHERYL (acute kidney injury): Plan: Nonoliguric stage II acute kidney injury likely ischemic ATN multifactorial in the setting of one diuretic dose, mild tachycardia in pt at baseline quite susceptible to CHERYL. Baseline creatinine 1.7-1.9 in pt quite prone to CHERYL based on previous admissions' renal profile. did have single 20 mg torsemide 05/12. presented 05/11 w/ creatinine 1.5, then rapidly up to 2.6 after single torsemide dose > peak creatinine 4.4 on 05/15, down slightly today to 4.3. Mildly tachycardic. Admission UA unremarkable for inflammation; no eosinophilia currently or as of spring. serum chemistries acceptable; mild respiratory acidosis addressed w/ bipap. Urine output remains borderline. not fluid overloaded on imaging 05/13; exam is very difficult to assess volume status meaningfully. renal u/s w/ BL cysts, probably w/ some complexity overall he is 6.9 L positive on the admission; UOP up slightly 05/15 follow up UA c/w anali crenshaw but may also suggest other inflammation/nephritis -- new since admission; urine cx w/ GNR covered w/ ceftriaxone -continue plasmalyte current rate ongoing >>appreciate continued focus on rate control >> IV metoprolol -daily bmp -avoid IV contrast -target SBP 130-140s, HR <90 if feasible -continue to hold torsemide -no indication for [employer] but cannot rule out need for discussion of it this admission; he is a very poor dialysis candidate -cont strict I/O (2) CKD (chronic kidney disease) stage 3, GFR 30-59 ml/min: Plan: baseline creatinine 1.7-1.9 as OP in 2022 > follows w/ Dr Agee (3) Stroke: Plan: per primary service and neuro (4) Bedbound: Plan: -for about 18 months now for clinically unclear reasons; exceptional deconditioning; curious if neurology may have insight/recommend further w/u if/once acute stroke issue stabilized Admission and Anticipated Discharge Date Admission Date: May 12, 2023 Subjective starting trophic feeds; neuro following; pt unable/does not participate in ROS Review of Systems Review of Systems: Unobtainable due to mental health condition and Unobtainable due to reduced consciousness Physical Exam Constitutional: well developed, well nourished, + morbidly obese, + behavioral limitations, + physical limitations and + lethargic; no acute distress Eyes: EOM intact bilaterally ENMT: Ears: no external ear abnormality Nose: no external nose abnormality Mouth: + dry oral mucous membranes Neck: no nuchal rigidity Respiratory: normal respiratory effort Auscultation: + diminished lung sounds Cardiovascular: Rate/Rhythm: regular rate and regular rhythm Extremities: no edema Gastrointestinal (Abdomen): Inspection/Auscultation: normal bowel sounds Percussion/Palpation: abdomen soft; abdomen nontender Musculoskeletal: Extremities: + abnormal strength Skin: no rashes, warm and dry Neurologic: opens eyes, tracks briefly, grimaces; watkins snot follow commands for me Results & Data Vital Signs (Past 12 Hours) Vital Signs Temp Pulse Resp BP Pulse Ox O2 Del Method FiO2 05/16/23 12:00 91 H 05/16/23 12:01 136/87 05/16/23 12:01 87 23 92 05/16/23 12:00 87 25 H 93 05/16/23 11:30 100 H 25 H 89 L 05/16/23 11:00 100 H 23 92 05/16/23 11:00 162/105 H 05/16/23 10:30 99 H 26 H 91 05/16/23 10:01 99 H 21 93 05/16/23 10:01 147/98 H 05/16/23 10:00 102 H 22 93 05/16/23 09:30 101 H 21 94 05/16/23 12:07 37.1 C 05/16/23 11:47 92 H 05/16/23 11:35 97 H 23 90 28 05/16/23 08:00 99 H 05/16/23 08:00 BiPAP 28 05/16/23 09:01 157/95 H 05/16/23 09:01 99 H 21 93 05/16/23 09:00 99 H 22 92 05/16/23 08:30 98 H 20 95 05/16/23 08:01 166/101 H 05/16/23 08:01 100 H 21 94 05/16/23 08:00 100 H 20 95 05/16/23 07:30 101 H 29 H 90 05/16/23 07:00 96 H 16 91 05/16/23 07:00 166/107 H 05/16/23 06:30 95 H 23 96 05/16/23 08:00 37.3 C 05/16/23 08:03 100 H 25 H 93 28 05/16/23 06:00 95 H 23 96 05/16/23 06:00 143/103 H 05/16/23 05:50 95 H 25 H 96 05/16/23 05:40 92 H 22 95 05/16/23 05:30 93 H 24 94 05/16/23 05:20 87 21 95 05/16/23 05:10 87 19 94 05/16/23 05:01 88 22 93 05/16/23 05:01 145/84 H 05/16/23 05:00 91 H 18 94 05/16/23 04:50 95 H 20 95 05/16/23 05:02 88 145/84 H 05/16/23 04:58 95 H 151/100 H 05/16/23 04:40 101 H 23 94 05/16/23 04:30 91 H 19 92 05/16/23 04:20 101 H 23 92 05/16/23 04:10 103 H 15 94 05/16/23 04:01 151/100 H 05/16/23 04:01 100 H 20 94 05/16/23 04:00 101 H 24 94 05/16/23 03:50 100 H 24 95 05/16/23 03:40 99 H 23 94 05/16/23 03:30 98 H 24 94 05/16/23 03:20 97 H 26 H 94 05/16/23 03:10 97 H 25 H 92 05/16/23 03:01 153/97 H 05/16/23 03:01 96 H 24 92 05/16/23 03:00 98 H 20 93 05/16/23 02:50 98 H 24 92 05/16/23 02:40 97 H 22 93 05/16/23 02:30 98 H 23 95 05/16/23 02:53 99 H 23 93 28 05/16/23 02:51 37.8 C H Laboratory Results 05/16/23 04:38 05/16/23 04:38
[2023-05-16 16:59] LABS: BUN Creatinine Ratio 18.5 (10-20); Calcium 9.5 mg/dl (8.6-10.3); Est GFR (African American) 16.9 ml/min; Est GFR (Non-African American) 14.6 ml/min
[2023-05-16] MEDS: cefTRIAXone SODIUM 2,000 MG in DEXTROSE 5% 50 ML IV SCH (17:22)
[2023-05-16] MEDS ORDERED: PATIROMER CALCIUM SORBITEX 8.4 GM PACK PO SCH (17:30)
--- NOTE | 2023-05-16 17:44 | Hospitalist Progress Note ---
Date of Service May 16, 2023 Assessment & Plan (1) Slurring of speech: Plan: This is a 57 yo M w/ hypertension,HLD, morbid obesity, chronic diastolic CHF, and ambulatory dysfunction currently wheelchair-bound hx of gout, rheumatoid arthritis, tobacco abuse,chronic back pain, medication non compliance, chronic kidney disease, morbid obesity, obesity hypoventilation syndrome, history of DVT on Coumadin currently living at home is brought in because of strokelike symptoms since around 5 PM he noticed to have slurred speech. 1.) Probable acute CVA The medical record reflects the following clinical evidence: Clinical Indicators: H/P and subsequent progress notes indicate stroke like symptoms; however, neurology progress note indicates probable acute stroke in the consultation and subsequent progress note. Treatment: neurology consult, repeat CT head, permissive HTN, ASA and coumadin, Risk Factor(s): age, morbid obesity, tobacco use disorder, CKD 2.) Metabolic encephalopathy Strokelike symptoms Slurred speech CT head in ER - negative CTA head and neck not done because of history of significant CHERYL in the recent past Patient on Coumadin and INR therapeutic TNK was not given because of INR therapeutic Patient states he is severely claustrophobic for MRI scan monitor on telemetry, neurochecks per protocol Speech evaluation and PT OT evaluation-> pt failed swallow study today (05/14/23) Permissive hypertension N.p.o. for now, gentle fluids Echocardiogram ordered and carotid Doppler Echo - EF 60 to 65%. Moderate concentric LVH. RV is grossly normal size. RV systolic function is qualitatively normal. Poorly visualized valvular anatomy. Carotid Doppler - 1. Mild atherosclerosis of the carotid bulbs without hemody namically significant stenosis. 2. Normal antegrade vertebral flow bilaterally. 05/12 CT head repeat - negative Added aspirin 81 and statin pt is already on coumadin a1c 6.1% LDL 206 Neurology consulted and following - ideally would obtain MRI of brain Overnight pt confused and with labored breathing. Possibly w/ more weakness. pt refused bipap during the day. He was transferred to ICU and currently on bipap 05/14- Pt continues to be in ICU on bipap 05/15 discussed again w/ neurology - recommend to dc asa given pt is on warfarin Hypertension On Coreg and verapamil Reduced Coreg dose to 6.25 for now to allow permissive hypertension We will monitor care per ICU History DVT On warfarin INR therapeutic We will follow PT/INR Chronically kidney disease Creatinine 1.5 on admission- improved from previous Cr worsened now and nephrology consulted We will follow labs - Cr continues to rise history of gout Allopurinol Rheumatoid arthritis Says currently on prednisone 30 mg daily seems to be on tapering dose Looks like he was on 5 to 10 mg daily in the past Tapering now per ICU team Morbid obesity Obesity hypoventilation syndrome Not using BiPAP at home. Says he had nocturnal study done recently and he does not have results yet. Oxygen VBG ok on admission Bipap ordered and pt refused during the day (05/12) Now on bipap in icu Chronic diastolic CHF On torsemide monitor for volume overload nephrology also following at this time History of anemia On iron supplements Hemoglobin stable DVT prophylaxis on Coumadin Disposition - ICU Full code Admission and Anticipated Discharge Date Admission Date: May 12, 2023 Results & Data Results & Data Vital Signs (Past 12 Hours) Vital Signs Temp Pulse Resp BP Pulse Ox O2 Del Method O2 Del Method 05/16/23 17:28 81 05/16/23 16:01 126 H 18 94 05/16/23 16:01 161/95 H 05/16/23 16:00 132 H 19 94 05/16/23 15:30 84 18 91 05/16/23 15:55 107 H 17 93 05/16/23 16:18 37 C 05/16/23 16:18 107 H 05/16/23 16:00 BiPAP 05/16/23 15:00 87 17 92 05/16/23 15:00 138/98 05/16/23 14:30 83 16 93 05/16/23 14:00 90 18 90 05/16/23 14:00 139/93 05/16/23 14:00 139/93 05/16/23 13:30 90 22 90 05/16/23 13:01 87 21 93 05/16/23 13:01 131/87 05/16/23 13:00 88 21 93 05/16/23 12:30 91 H 22 92 05/16/23 12:00 91 H 05/16/23 12:01 136/87 05/16/23 12:01 87 23 92 05/16/23 12:00 87 25 H 93 05/16/23 11:30 100 H 25 H 89 L 05/16/23 11:00 100 H 23 92 05/16/23 11:00 162/105 H 05/16/23 10:30 99 H 26 H 91 05/16/23 10:01 99 H 21 93 05/16/23 10:01 147/98 H 05/16/23 10:00 102 H 22 93 05/16/23 09:30 101 H 21 94 05/16/23 12:07 37.1 C 05/16/23 11:47 92 H 05/16/23 11:35 97 H 23 90 05/16/23 08:00 99 H 05/16/23 08:00 BiPAP 05/16/23 09:01 157/95 H 05/16/23 09:01 99 H 21 93 05/16/23 09:00 99 H 22 92 05/16/23 08:30 98 H 20 95 05/16/23 08:01 166/101 H 05/16/23 08:01 100 H 21 94 05/16/23 08:00 100 H 20 95 05/16/23 07:30 101 H 29 H 90 05/16/23 07:00 96 H 16 91 05/16/23 07:00 166/107 H 05/16/23 06:30 95 H 23 96 05/16/23 08:00 37.3 C 05/16/23 08:03 100 H 25 H 93 05/16/23 06:00 95 H 23 96 05/16/23 06:00 143/103 H 05/16/23 05:50 95 H 25 H 96 FiO2 05/16/23 17:28 05/16/23 16:01 05/16/23 16:01 05/16/23 16:00 05/16/23 15:30 05/16/23 15:55 28 05/16/23 16:18 05/16/23 16:18 05/16/23 16:00 05/16/23 15:00 05/16/23 15:00 05/16/23 14:30 05/16/23 14:00 05/16/23 14:00 05/16/23 14:00 05/16/23 13:30 05/16/23 13:01 05/16/23 13:01 05/16/23 13:00 05/16/23 12:30 05/16/23 12:00 05/16/23 12:01 05/16/23 12:01 05/16/23 12:00 05/16/23 11:30 05/16/23 11:00 05/16/23 11:00 05/16/23 10:30 05/16/23 10:01 05/16/23 10:01 05/16/23 10:00 05/16/23 09:30 05/16/23 12:07 05/16/23 11:47 05/16/23 11:35 28 05/16/23 08:00 05/16/23 08:00 05/16/23 09:01 05/16/23 09:01 05/16/23 09:00 05/16/23 08:30 05/16/23 08:01 05/16/23 08:01 05/16/23 08:00 05/16/23 07:30 05/16/23 07:00 05/16/23 07:00 05/16/23 06:30 05/16/23 08:00 05/16/23 08:03 05/16/23 06:00 05/16/23 06:00 05/16/23 05:50
[2023-05-17] MEDS: HEPARIN SODIUM/DEXTROSE 25,000 UNITS/500 ML BAG IV SCH (01:19)
[2023-05-17] MEDS: THIAMINE HCL 500 MG in SODIUM CHLORIDE 0.9% 50 ML IV SCH ×3 (04:34→19:34)
[2023-05-17] MEDS: TUBE FEEDING WATER FLUSH NG SCH ×3 (04:34→10:15)
[2023-05-17 05:32] LABS: iSTAT Allen Test Pass; iSTAT Art Bld Gas pCO2 Correct 53 mmHg (35-46); iSTAT Art Bld Gas pH Corrected 7.347 (7.35-7.45); iSTAT Arterial Blood Gas HCO3 29 meg/L (19-24); iSTAT Arterial Blood Gas pCO2 53 mmHg (35-46); iSTAT Arterial Blood Gas pH 7.35 (7.35-7.45); iSTAT Arterial Blood Gas pO2 71 mmHg (80-95); iSTAT Arterial Blood Gas pO2 C 72; iSTAT Carbon Dioxide 31 mmol/L (24-31); iSTAT FiO2 28 %; iSTAT Hematocrit 62 % (42-52); iSTAT Hemoglobin 21.1 g/dl (14.0-18.0); iSTAT Site L Radial; iSTAT Sodium 137 mmol/L (135-144)
[2023-05-17 05:51] LABS: Basophils # (auto) 0.02 K/uL (0.00-0.20); Basophils % (auto) 0.2 %; Eosinophils # (auto) 0.24 K/uL (0.00-0.50); Hematocrit (blood only) 37.7 % (42.0-52.0); Immature Granulocytes # (auto) 0.04 K/uL (0.01-0.20); Immature Granulocytes % (auto) 0.5 %; Lymphocytes # (auto) 0.63 K/uL (1.20-3.40); Lymphocytes % (auto) 7.8 %; Mean Corpuscular Hemoglobin 30.2 pg (25.0-34.0); Mean Corpuscular Hgb Conc 31.8 g/dL (32.0-36.0); Mean Corpuscular Volume 94.7 fL (80.0-100.0); Mean Platelet Volume 10.8 fL (9.4-12.4); Monocytes # (auto) 0.73 K/uL (0.11-0.59); Monocytes % (auto) 9.1 %; Neutrophils % (auto) 79.4 %; Platelet Count 238 K/uL (130-400); RDW Coefficient of Variation 16.1 % (11.5-14.5); RDW Standard Deviation 56.6 fL (36.4-46.3); Red Blood Count 3.98 M/uL (4.70-6.10); White Blood Count 8.06 K/ul (4.8-10.8)
[2023-05-17] MEDS: PLASMA-LYTE A 1,000 ML IV SCH ×3 (05:51→23:53)
[2023-05-17] MEDS: METOPROLOL TARTRATE 1 MG/ML VIAL IV SCH ×4 (06:09→23:51)
[2023-05-17 06:11] LABS: BUN Creatinine Ratio 19.2 (10-20); Calcium 9.4 mg/dl (8.6-10.3); Creatinine Clr Calc Pharmacy 38.4 ml/min; Est GFR (African American) 18.9 ml/min; Est GFR (Non-African American) 16.3 ml/min; Magnesium 2.8 mg/dl (1.7-2.4); Phosphorus 4.9 mg/dl (2.5-4.9); Potassium 4.4 mmol/L (3.5-5.1)
[2023-05-17 06:30] LABS: INR 1.7 (0.9-1.1); Partial Thromboplastin Ratio 1.7
[2023-05-17 06:45] LABS: Partial Thromboplastin Time 48.6 Seconds (21.0-31.0)
--- NOTE | 2023-05-17 08:10 | Critical Care Progress Note ---
Date of Service May 17, 2023 Assessment & Plan (1) CKD (chronic kidney disease) stage 3, GFR 30-59 ml/min: (2) Stroke: (3) Slurring of speech: (4) Hypoxia: (5) Epigastric abdominal pain: (6) Eosinophilia: (7) DVT (deep venous thrombosis): Plan Reason Critically Ill: 57 YOM admitted for stroke like symptoms currently with worsening of aphasia, left sided weakness and tachypnea on BiPAP with concern for respiratory failure. Neuro -CVA/Stroke like symptoms, Aphasia --Encephalopathy -Acute on chronic stroke symptoms- with possible extension of stroke vs. uremic encephalopathy or combination - On initial evaluation not moving his left side without coaxing- on arrival to ICU and during transport patient spontaneously moving left arm and left leg - remains aphasic - CT head negative x2, no signs of bleeding - MRI would be beneficial- Consider sedating for completion of study if respiratory efforts improve -Stroke system started more than 24 hours ago --> not TNK candidate - No Carotid Stenosis -TSH, sodium, calcium, glucose within normal limit on 05/15/2023 -Follow-up autoimmune work-up -ESR and CRP are elevated for the patient which is nonspecific Neurology on board Cardiac -HTN, HLD - Allow for permissive HTN We will start the patient on metoprolol IV given that he failed swallow eval - High Dose statin therapy - 40mg Atorvastatin Respiratory -Acute on Chronic Respiratory failure, Obesity Hypoventilation syndrome -Mild hypercapnia- 7.32/55/117/28- continue with CPAP/BiPAP GI -Morbid Obesity - no acute needs RENAL/LYTES - CHERYL on CKD - Follow daily BMPs- avoid nephrotoxic agents as able and if needed minimize exposure time - Nephrology on board - No acute need - Starks to gravity ENDO - No acute needs - HGB A1C 5.5 range -Continue with ICU hypoglycemia protocol HEME -Hx of Eosinophilia on chronic prednisone, HX of DVT History of eosinophil count as high as 3400 10/17/2022 - Follows with Allergy- on steroid taper -On prednisone taper since 04/28/2023. Was started on 40 mg and was supposed to decrease by 10 mg every week. --DVT on chronic warfarin follow daily INR to goal 2-2.5 ID - -- Pseudomonas pansensitive in the urine Started on Rocephin 05/15/2023 --> changed to cefepime 05/17/2023, will continue for 10 days --Prophylaxis VTE: Heparin drip GI: Pepcid Lines: Peripheral Diet: Tube feeds Plan: In/out: +3.1 L, urine output 1335 Patient's ABG from today showed mild hypercapnia. His IPAP was increased which is elevated and better pH of 7.39. Patient still requiring BiPAP [id number]. It has been more than 72 hours that he has been needing it. I did call father at [phone] and spoke regarding the need for tracheostomy. He is agreeable to it but wanted me to get in touch with patient's Rima. I called [phone] but unfortunately nobody picked up and there is no voicemail set. We do not have an ENT available this week. I will speak with one of my colleagues who does percutaneous tracheostomy to see if he will be able to do the procedure on him tomorrow I have personally spent 35 minutes of critical care time in the direct management of this patient. This is a life/limb threatening event. This includes time spent evaluating patient, direct bedside care, chart review, placing orders, interpretation of diagnostic studies, discussion with consultants, patient, and family members, as well as other required patient management activities. This time is exclusive of all separately billable procedures, and teaching time and separate from and in addition to any other critical care service time. Please note the above document was generated using voice recognition software. It may contain grammatical, syntax or spelling errors. Admission and Anticipated Discharge Date Admission Date: May 12, 2023 Subjective Patient seen and examined at bedside. No acute distress, no adverse events overnight He was on BiPAP. Saturating 94-95% on 28% FiO2. Denied any headache, no nausea or vomiting No chest pain, no abdominal pain. Does complain of shortness of breath when we take him off the BiPAP. Review of Systems Review of Systems: All systems reviewed & are unremarkable except as noted in Subjective and Unobtainable due to cognitive status Physical Exam Physical Exam: Constitutional: No acute distress HEENT: EOMI, PERRLA Respiratory system: Decreased air entry bilaterally, no wheeze, no rhonchi, no crackles CVS: S1-S2 positive, no murmurs or gallops, distant heart sounds Abdomen: Soft, nontender, nondistended, positive bowel sounds x4, obese Extremities: +2 pulses bilaterally radialis/ dorsalis pedis, no cyanosis, no edema Neuro: Awake and alert, bilateral lower extremity 3 out of 5, right upper extremity 3 out of 5, left upper extremity 0 out of 5, Babinski negative Psych: Flat mood and affect G/U: Positive Starks Skin: no rashes, warm and dry Lymphatic: no cervical or axillary lymphadenopathy Results & Data Results & Data Vital Signs (Past 12 Hours) Vital Signs Temp Pulse Resp BP Pulse Ox O2 Del Method FiO2 05/17/23 06:20 76 132/87 05/17/23 06:01 85 15 147/94 H 97 BiPAP 05/17/23 05:01 86 20 152/87 H 96 BiPAP 05/17/23 05:12 37.1 C 05/17/23 06:09 86 147/94 H 05/17/23 04:00 85 19 170/88 H 94 05/17/23 03:00 81 18 149/81 H 95 05/17/23 03:06 86 18 93 28 05/17/23 02:01 79 19 132/82 92 05/17/23 01:00 84 22 160/84 H 94 05/17/23 00:00 82 20 145/84 H 95 05/17/23 01:09 86 05/16/23 23:55 82 145/84 H 05/16/23 23:00 79 19 132/79 93 BiPAP 05/16/23 22:01 92 H 19 147/80 H 95 BiPAP 05/16/23 23:35 86 132/79 05/16/23 22:14 80 19 96 28 05/16/23 21:48 BiPAP 05/16/23 21:00 83 21 140/88 96 05/16/23 21:41 37.0 C 05/16/23 20:55 79 18 93 28 Laboratory Results 05/17/23 05:26 05/17/23 05:26 Coding Level of Care Code 32347 CRITICAL CARE 1ST 30-74M Diagnoses CKD (chronic kidney disease) stage 3, GFR 30-59 ml/min N18.30 Stroke I63.9 Slurring of speech R47.81 Hypoxia R09.02 Epigastric abdominal pain R10.13 Eosinophilia D72.19 DVT (deep venous thrombosis) I82.409 Time Spent (min) 35
[2023-05-17] MEDS: CEFEPIME 1,000 MG in SYRINGE 0 ML IV SCH ×2 (08:22→19:34)
[2023-05-17] MEDS: FAMOTIDINE 20 MG in SYRINGE 3 ML IV SCH (08:23)
[2023-05-17] MEDS: predniSONE 10 MG TABLET PO SCH (08:38)
[2023-05-17] MEDS: FERROUS SULFATE 325 MG TAB PO SCH (08:40)
[2023-05-17] MEDS: carvediloL 6.25 MG TAB PO SCH ×2 (08:41→17:53)
[2023-05-17] MEDS: FOLIC ACID 1 MG TAB PO SCH (08:41)
[2023-05-17] MEDS: ATORVASTATIN 40 MG TAB PO SCH (08:41)
[2023-05-17] MEDS: allopurinoL 300 MG TAB PO SCH (08:41)
[2023-05-17 09:43] LABS: iSTAT Allen Test Pass; iSTAT Art Bld Gas pCO2 Correct 46 mmHg (35-46); iSTAT Art Bld Gas pH Corrected 7.404 (7.35-7.45); iSTAT Arterial Blood Gas HCO3 29 meg/L (19-24); iSTAT Arterial Blood Gas pCO2 47 mmHg (35-46); iSTAT Arterial Blood Gas pO2 51 mmHg (80-95); iSTAT Arterial Blood Gas pO2 C 50; iSTAT Carbon Dioxide 30 mmol/L (24-31); iSTAT FiO2 21 %; iSTAT Hematocrit 36 % (42-52); iSTAT Hemoglobin 12.2 g/dl (14.0-18.0); iSTAT Site R Radial; iSTAT Sodium 138 mmol/L (135-144)
--- NOTE | 2023-05-17 13:01 | Communication Note ---
Date of Service: May 17, 2023 Critical CARE addendum: I was able to speak with patient's Rima Bowie on the phone. I explained the current condition of the patient and the need for tracheostomy given that he is BiPAP dependent for the last 4 days. She is agreeable to go ahead with the procedure given the necessity. Her and Judson Bowie are pursuing 2 separate legally. Still they are on paper. I did explain to her that she is the POA right now as Judson is not able to make decision on his own. She did asked me to reach out to patient's father which I have already reached out and he is also agreeable to the procedure. Plan will be to have the patient intubated and then tracheostomy to be done around [address] Dubon, Dr. Dubon also came and saw the patient in the afternoon. Please note the above document was generated using voice recognition software. It may contain grammatical, syntax or spelling errors.Any formal questions or concerns about the content, text or information contained within the body of this dictation should be directly addressed to the provider for clarification. Coding Level of Care Code 65832 CRITICAL CARE EA ADD 30M
[2023-05-17] MEDS ORDERED: fentaNYL BOLUS from BAG IV PRN (13:21)
[2023-05-17] MEDS ORDERED: PROPOFOL BOLUS FROM BAG IV PRN (13:21)
[2023-05-17] MEDS ORDERED: STAT IV Infusion **Titration per Protocol STA (13:21)
[2023-05-17] MEDS ORDERED: PROPOFOL IV EMULSION 10 MG/ML 100 ML VIAL IV ONE (13:25)
[2023-05-17] MEDS ORDERED: fentaNYL citrate 2,500 MCG/250 ML BAG IV ONE (13:25)
[2023-05-17] MEDS ORDERED: fentaNYL citrate 2,500 MCG/250 ML BAG IV SCH (13:30)
[2023-05-17] MEDS: propofoL 1,000 MG/100 ML VIAL IV SCH ×3 (13:33→23:50)
[2023-05-17] MEDS ORDERED: NOREPINEPHRINE/D5W 4 MG/250 ML IV ONE (13:48)
--- NOTE | 2023-05-17 13:56 | Anesthesia Procedure Note ---
Anesthesia Procedure Note Intubation Note Vital Signs: Patient medical history, medication, allergies and vitals reviewed. Date of procedure: 05/17/23 Indication for intubation: Unable to protect airway and Unable to maintain airway patency Consent: Risk / Benefits Reviewed With: PT / POA / Parent / Guardian, Accepts Plan, Informed Consent Obtained and All Questions Answered Monitors attached: Blood Pressure, CO2, EKG and Pulse Oximetry Time out completed: Yes Premedication: Propofol (mg) (150) Paralytic medication: Succinylcholine (mg) (60) Intubation technique: Adequate preoxygenation, Mask ventilation (after failed rsi), Two-hand mask, RSI (cricoid, but unable to intubate 1st attempt) and Cricoid pressure Equipment: Glidescope View: Grade 1 Endotracheal tube: 7.5 Attempts: 2 Tube placement confirmation: auscultation and Positive CO2 detection Post-procedure: Pt hemodynamically stable, Pt tolerates well, No complication and Post placement CXR ordered
--- NOTE | 2023-05-17 14:17 | XRay Report ---
PORTABLE SEMIUPRIGHT AP CHEST RADIOGRAPH CLINICAL HISTORY: post intubation COMPARISON STUDY: Chest radiograph May 16, 2023. Chest CT August 29, 2022. FINDINGS: The tip of the endotracheal tube is 2.7 cm above the onesimo. Tip of nasogastric tube is wit hin the proximal body of the stomach. Cardiomediastinal silhouette is stable. No evidence for pulmona ry edema. There is no lobar consolidation. There is possible left lower lobe airspace opacity. IMPRESSION: 1. Satisfactory positioning of the endotracheal tube. 2. No lobar consolidation. Possible left lower lobe airspace opacity. 3. Cardiomegaly without evidence for pulmonary edema. ACT 112: Negative or not required by law. Electronically signed by: Shan Pedroza M.D. 05/17/2023 2:14 PM
[2023-05-17] MEDS ORDERED: LIDOCAINE 1% LOCAL 20 ML VIAL ONE (15:33)
[2023-05-17] MEDS ORDERED: VECURONIUM BROMIDE 10 MG VIAL IV ONE (16:00)
[2023-05-17] MEDS ORDERED: fentaNYL BOLUS from BAG IV ONE (16:34)
--- NOTE | 2023-05-17 16:35 | Procedure Note ---
Procedure Note Date of Service May 17, 2023 Note Procedure: 1. Percutaneous dilatation of 8.0 proximal XLT Shiley tracheostomy Indication respiratory failure Line Server Dr. Leon Dubon Clother In: Dr. Wisam Wray Anesthesia: Patient was maintained on a propofol infusion. Fentanyl infusion was administered. The patient was bolused 20 mL of propofol and 100 mics of fentanyl during the procedure. 10 mg vecuronium. Consent: Risks and benefits were discussed with the patient's . Consent was verified and timeout was performed prior to starting the procedure. Consent was obtained by Dr. Wray Estimated blood loss: Less than 10 mL Procedure: The patient is in the ICU intubated and on the ventilator. He is placed on 100 percent FiO2. A timeout was performed. Consent was verified. Patient was paralyzed and sedation maintained. Once anesthesia was appropriate, neck roll was placed under the shoulders to allow for extension of the neck. Landmarks were difficult to palpate due to the patient's body habitus. An ultrasound was performed of the anterior neck which did not reveal any large bridging vessels. An area approximately 1 cm below the cricoid cartilage was cleaned and draped using chlorhexidine. A sterile field was established. Using an 11 blade scalpel, a 1.5 cm longitudinal incision of the trachea was made. Blunt dissection with my index finger and the curved hemostats was conducted down until I could palpate tracheal rings with my index finger. At that point in time, Dr. Wray advanced the bronchoscope through the existing endotracheal tube. The bronchoscope was left at the tip of the ET tube. The cuff was deflated and the bronchoscope and endotracheal tube were withdrawn to a level just below the glottis. I was able to observe external ballottement using a curved forceps. Using an 18-gauge over the needle Angiocath, the trachea was entered between the first and second cartilaginous ring. A wire was passed through the catheter into the distal airway and visualized bronchoscopically to be distending into the lower airways. Catheter was removed leaving the wire in place. Stiff dilator was used to dilate the tract and then the Rhino dilator and guiding catheter were advanced over the wire into the airway. The Rhino di lator was removed leaving the wire and guiding catheter in place. A previously tested 8.0 proximal XLT Shiley cuffed tracheostomy had been lubricated and loading on a 26 Wolof delivery catheter. This was advanced over the wire and guiding catheter into the airway. Once the tracheostomy was in place, the loading catheter, guiding catheter, and wire were removed. The bronchoscope was then removed from the endotracheal tube and advanced through the newly placed tracheostomy tube and verified to be within the airway. The balloon was inflated. The inner cannula was replaced and the patient was attached to the ventilator. Good return tidal volumes were obtained. 2 Vicryl stay sutures were placed in the newly placed tracheostomy through the 12 and at the 6 o'clock position. A drain sponge was placed and trach ties were attached. The roll under the shoulder blades was removed. Patient tolerated the procedure well. Coding CPT Codes ENT - ENT: 44603 Incision of windpipe ([id number]) Pulmonary/Thoracic - Pulmonary and Thoracic: 33993 US, Chest, real time with imaging documentation ([id number]) [facility] Procedure Codes (Charges) ENT ENT: 55471 Incision of windpipe Pulmonary/Thoracic Procedure 2: Pulmonary and Thoracic: 79999 US, Chest, real time with imaging documentation
--- NOTE | 2023-05-17 17:00 | Procedure Note ---
Procedure Note: Bronchoscopy Procedure PREOPERATIVE DIAGNOSIS: Vent dependent respiratory failure POSTOPERATIVE DIAGNOSIS: Vent dependent respiratory failure with tracheostomy in place PROCEDURE PERFORMED: Flexible fiberoptic bronchoscopy COMPLICATIONS: None. INDICATION: To assist and confirm the placement of trach is correct PROCEDURE: After obtaining an informed consent, The patient had appropriate oxygen, blood pressure, heart rate, and respiratory rate monitoring applied and monitored continuously throughout the procedure Patient was already intubated. Subsequent to this, the patient was premedicated with 20 ML of propofol and 100 mcg of fentanyl. Bronchoscope was advanced through the ETT The trachea appeared normal.The bronchoscope was then advanced through the onesimo, which was sharp. The scope was then advanced into the right main stem and each segment, subsegement in the right upper lobe which was bifurcated, right middle lobe and right lower lobe were visualized. There were minimal amount of clear secretion which were suctioned out. There were no other findings including evidence of mass, anatomic distortions, or hemorrhage. The bronchoscope was subsequently withdrawn and advanced into the left mainstem. Again, each segment and subsegment was well visualized. No specific masses or other lesions were identified throughout the tracheobronchial tree on the left. There was minimal amount of secretion which was suctioned out. Under direct visualization endotracheal tube was withdrawn after deflating the cuff to the level just below the glottis. Needle insertion was visualized. Guidewire going inferiorly into the lumen. Trach was seen going into the lumen as well. Once the trach was in the lumen bronchoscope was withdrawn and inserted through the trach which showed good placement. Blood was suctioned out from the both sides. No active bleeding was appreciated. Bronchoscope was withdrawn from the trach. Bronchoscope was reinserted from the mouth with the help of a glide a scope to make sure the balloon is not closing the osteotomy. It was well below. The bronchoscope was then withdrawn.The area was suctioned clear. The bronchoscope was then withdrawn. The patient tolerated the procedure well without evidence of desaturation or complications. Recommendations: Follow-up chest x-ray Please note the above document was generated using voice recognition software. It may contain grammatical, syntax or spelling errors.Any formal questions or concerns about the content, text or information contained within the body of this dictation should be directly addressed to the provider for clarification. [facility] [place] Procedure Codes (Charges) Pulmonary/Thoracic Procedure 1: Pulmonary and Thoracic: 97213 Bronchoscopy, clear airways
--- NOTE | 2023-05-17 17:09 | Nephrology Progress Note ---
Date of Service May 17, 2023 Assessment & Plan (1) CHERYL (acute kidney injury): Plan: Improving nonoliguric stage II acute kidney injury likely ischemic ATN multifa ctorial in the setting of one diuretic dose, mild tachycardia in pt at baseline quite susceptible to CHERYL. Baseline creatinine 1.7-1.9 in pt quite prone to CHERYL based on previous admissions' renal profile. did have single 20 mg torsemide 05/12. presented 05/11 w/ creatinine 1.5, then rapidly up to 2.6 after single torsemide dose > peak creatinine 4.4 on 05/15, down further today to 4.3. Admission UA unremarkable for inflammation; no eosinophilia currently or as of spring. serum chemistries acceptable; mild respiratory acidosis addressed w/ bipap. Urine output remains borderline. not fluid overloaded on imaging 05/13; exam is very difficult to assess volume status meaningfully. renal u/s w/ BL cysts, probably w/ some complexity overall he is just under 10 L positive on the admission; UOP up today after long wait 05/15 follow up UA c/w a crenshaw but may also suggest other inflammation/nephritis -- new since admission; urine cx w/ e coli covered w/ ceftriaxone -continue plasmalyte current rate ongoing perhaps a day more >>appreciate continued focus on rate control >> IV metoprolol -daily bmp -avoid IV contrast -target SBP 130-140s, HR <90 if feasible -continue to hold torsemide -no indication for [employer] but cannot rule out need for discussion of it this admission; he is a very poor dialysis candidate -cont strict I/O with TF on board and FW flushes may soon be able to pull back some on IVF but for now continue same Care coordinated w/ Dr Wray. (2) CKD (chronic kidney disease) stage 3, GFR 30-59 ml/min: Plan: baseline creatinine 1.7-1.9 as OP in 2022 > follows w/ Dr Agee (3) Stroke: Plan: per primary service and neuro (4) Bedbound: Plan: -for about 18 months now for clinically unclear reasons; exceptional deconditioning; curious if neurology may have insight/recommend further w/u if/once acute stroke issue stabilized Admission and Anticipated Discharge Date Admission Date: May 12, 2023 Subjective seen on rounds late this AM; some improvement in kidney labs and now up to 1.3L UOP.. ICU team was working to get consent for trach which pt subsequently underwent Review of Systems Review of Systems: All systems reviewed & are unremarkable except as noted in Subjective Physical Exam Constitutional: well developed, well nourished, + morbidly obese, + altered mental status, + behavioral limitations, + physical limitations and + lethargic; no acute distress Eyes: EOM intact bilaterally ENMT: Ears: no external ear abnormality Nose: no external nose abnormality Mouth: + dry oral mucous membranes Neck: no nuchal rigidity Respiratory: normal respiratory effort (on bipap) Auscultation: + diminished lung sounds Cardiovascular: Rate/Rhythm: regular rate and regular rhythm Extremities: no edema Gastrointestinal (Abdomen): Inspection/Auscultation: normal bowel sounds Percussion/Palpation: abdomen soft; abdomen nontender Musculoskeletal: Extremities: + abnormal strength Skin: no rashes, warm and dry Neurologic: [place]atham but won't follow commands Results & Data Vital Signs (Past 12 Hours) Vital Signs Temp Pulse Pulse Resp BP BP Pulse Ox 05/17/23 14:50 138/89 05/17/23 14:50 82 22 92 05/17/23 14:45 85 20 88 L 05/17/23 14:45 142/104 H 05/17/23 14:40 139/91 05/17/23 14:40 82 23 92 05/17/23 14:35 136/85 05/17/23 14:35 83 18 92 05/17/23 14:30 84 19 90 05/17/23 14:30 139/90 05/17/23 14:25 129/85 05/17/23 14:25 83 19 92 05/17/23 14:21 83 22 92 05/17/23 14:21 140/80 05/17/23 14:15 90 14 91 05/17/23 14:15 150/91 H 05/17/23 14:10 84 16 92 05/17/23 14:10 140/88 05/17/23 14:05 140/85 05/17/23 14:05 86 18 91 05/17/23 14:01 121/83 05/17/23 14:01 86 15 92 05/17/23 14:00 87 12 92 05/17/23 13:55 152/92 H 05/17/23 13:55 89 24 90 05/17/23 13:53 167/144 H 05/17/23 13:53 95 H 24 90 05/17/23 13:51 167/137 H 05/17/23 13:51 87 15 91 05/17/23 14:13 85 24 91 05/17/23 13:50 89 16 90 05/17/23 13:50 134/88 05/17/23 13:37 84 18 98 05/17/23 13:37 151/91 H 05/17/23 13:35 190/103 H 05/17/23 13:35 86 20 98 05/17/23 13:32 90 25 H 97 05/17/23 13:32 158/91 H 05/17/23 13:30 86 19 82 L 05/17/23 13:30 140/89 05/17/23 13:00 93 H 18 95 05/17/23 13:00 158/100 H 05/17/23 12:30 81 22 94 05/17/23 12:06 88 21 93 05/17/23 12:06 154/92 H 05/17/23 12:00 84 19 94 05/17/23 12:00 146/89 H 05/17/23 11:41 146/89 H 05/17/23 11:41 90 19 94 05/17/23 11:30 89 25 H 96 05/17/23 11:00 81 19 95 05/17/23 11:00 137/81 05/17/23 10:30 79 21 97 05/17/23 12:13 90 19 94 05/17/23 12:05 83 154/92 H 05/17/23 11:44 91 H 146/89 H 05/17/23 11:40 89 22 146/89 H 95 05/17/23 10:00 05/17/23 07:15 80 20 91 05/17/23 10:10 76 18 96 05/17/23 10:00 79 20 05/17/23 10:00 124/83 05/17/23 09:42 05/17/23 09:31 36.7 C 88 22 145/85 H 91 05/17/23 09:00 86 22 147/85 H 92 05/17/23 08:01 133/87 05/17/23 08:01 79 18 98 05/17/23 08:00 80 18 97 05/17/23 07:01 81 22 98 05/17/23 08:57 86 05/17/23 06:20 76 132/87 05/17/23 06:01 85 15 147/94 H 97 05/17/23 05:12 37.1 C 05/17/23 06:09 86 147/94 H O2 Del Method FiO2 05/17/23 14:50 05/17/23 14:50 05/17/23 14:45 05/17/23 14:45 05/17/23 14:40 05/17/23 14:40 05/17/23 14:35 05/17/23 14:35 05/17/23 14:30 05/17/23 14:30 05/17/23 14:25 05/17/23 14:25 05/17/23 14:21 05/17/23 14:21 05/17/23 14:15 05/17/23 14:15 05/17/23 14:10 05/17/23 14:10 05/17/23 14:05 05/17/23 14:05 05/17/23 14:01 05/17/23 14:01 05/17/23 14:00 05/17/23 13:55 05/17/23 13:55 05/17/23 13:53 05/17/23 13:53 05/17/23 13:51 05/17/23 13:51 05/17/23 14:13 60 05/17/23 13:50 05/17/23 13:50 05/17/23 13:37 05/17/23 13:37 05/17/23 13:35 05/17/23 13:35 05/17/23 13:32 05/17/23 13:32 05/17/23 13:30 05/17/23 13:30 05/17/23 13:00 05/17/23 13:00 05/17/23 12:30 05/17/23 12:06 05/17/23 12:06 05/17/23 12:00 05/17/23 12:00 05/17/23 11:41 05/17/23 11:41 05/17/23 11:30 05/17/23 11:00 05/17/23 11:00 05/17/23 10:30 05/17/23 12:13 30 05/17/23 12:05 05/17/23 11:44 05/17/23 11:40 BiPAP 05/17/23 10:00 30 05/17/23 07:15 21 05/17/23 10:10 05/17/23 10:00 05/17/23 10:00 05/17/23 09:42 BiPAP 05/17/23 09:31 BiPAP 05/17/23 09:00 05/17/23 08:01 05/17/23 08:01 05/17/23 08:00 05/17/23 07:01 05/17/23 08:57 05/17/23 06:20 05/17/23 06:01 BiPAP 05/17/23 05:12 05/17/23 06:09 Laboratory Results 05/17/23 05:26 05/17/23 05:26
--- NOTE | 2023-05-17 17:39 | XRay Report ---
XR chest 1V portable HISTORY: Tracheostomy placement. COMPARISON: Chest 05/17/2023. FINDINGS: Interval placement of a tracheostomy tube which appears in good position. This terminates 5 cm from the onesimo. There are low lung volumes. A few bibasilar linear densities favor subsegmental atelectasis. No evidence for pulmonary edema The heart is enlarged. There is mild central pulmonary v ascular congestion without overt edema. Patchy left basilar densities persist. A right basilar lucenc y has slightly changed in appearance and could represent a small right pneumothorax in a supine patie nt. No left-sided pneumothorax identified. A nasogastric tube terminates in the stomach. Trace left p leural effusion. IMPRESSION: 1. Satisfactory support line placement. 2. Small lucency within the right medial lung base. This is slightly changed in position and could re present a small pneumothorax in a supine patient. Follow-up recommended. 2. Patchy left basilar densities and a trace left pleural effusion persist. ACT 112: Negative or not required by law. Electronically signed by: Abdirashid Garcia M.D. 05/17/2023 5:38 PM
[2023-05-17 18:03] LABS: iSTAT Allen Test Pass; iSTAT Art Bld Gas pCO2 Correct 44 mmHg (35-46); iSTAT Art Bld Gas pH Corrected 7.373 (7.35-7.45); iSTAT Arterial Blood Gas HCO3 26 meg/L (19-24); iSTAT Arterial Blood Gas pCO2 45 mmHg (35-46); iSTAT Arterial Blood Gas pH 7.37 (7.35-7.45); iSTAT Arterial Blood Gas pO2 58 mmHg (80-95); iSTAT Arterial Blood Gas pO2 C 57; iSTAT Carbon Dioxide 27 mmol/L (24-31); iSTAT FiO2 60 %; iSTAT Hematocrit 38 % (42-52); iSTAT Hemoglobin 12.9 g/dl (14.0-18.0); iSTAT Potassium 4.4 mmol/L (3.3-5.0); iSTAT Site L Radial; iSTAT Sodium 138 mmol/L (135-144)
--- NOTE | 2023-05-17 19:03 | Hospitalist Progress Note ---
Date of Service May 17, 2023 Assessment & Plan (1) Slurring of speech: Plan: per previous attending notes with addendum: This is a 57 yo M w/ hypertension,HLD, morbid obesity, chronic diastolic CHF, and ambulatory dysfunction currently wheelchair-bound hx of gout, rheumatoid arthritis, tobacco abuse,chronic back pain, medication non compliance, chronic kidney disease, morbid obesity, obesity hypoventilation syndrome, history of DVT on Coumadin currently living at home is brought in because of strokelike symptoms since around 5 PM he noticed to have slurred speech. Metabolic encephalopathy Probable acute CVA Strokelike symptoms Slurred speech CT head in ER - negative CTA head and neck not done because of history of significant CHERYL in the recent past Patient on Coumadin and INR therapeutic TNK was not given because of INR therapeutic Patient states he is severely claustrophobic for MRI scan Echo - EF 60 to 65%. Moderate concentric LVH. RV is grossly normal size. RV systolic function is qualitatively normal. Poorly visualized valvular anatomy. Carotid Doppler 1. Mild atherosclerosis of the carotid bulbs without hemodynamically significant stenosis. 2. Normal antegrade vertebral flow bilaterally. 05/12 CT head repeat - negative Added aspirin 81 and statin transferred to ICU and currently on bipap continues to [facility] Crea 4.2 to 3.8 Hypertension On Coreg and verapamil IV Metoprolol History DVT on heparin drip history of gout Allopurinol Rheumatoid arthritis Says currently on prednisone 30 mg daily seems to be on tapering dose Looks like he was on 5 to 10 mg daily in the past Tapering now per ICU team Morbid obesity Obesity hypoventilation syndrome Not using BiPAP at home. Says he had nocturnal study done recently and he does not have results yet. Chronic diastolic CHF Torsemide on hold due to CHERYL History of anemia On iron supplements Hemoglobin stable DVT prophylaxis on Coumadin Disposition - pending Full code Admission and Anticipated Discharge Date Admission Date: May 12, 2023 Subjective ff up for encephalopathy, etc seen with EMMA Yanes sedated, not in distress no signs of discomfort intubated awaiting trach placement no other issues Review of Systems Review of Systems: all noted and negative except for above Physical Exam Physical Exam: General- not in distress, breathing with no effort or accessory muscle use Eyes- anicteric Neck- no JVD Lungs- clear breath sounds bilaterally Heart- normal rate, regular rhythm; no murmurs Abdomen- normal bowel sounds, nondistended, soft, nontender Extremities- no pretibial edema, no calf tenderness Neuro- sedated Skin- warm & dry Results & Data Results & Data Vital Signs (Past 12 Hours) Vital Signs Temp Pulse Pulse Resp BP BP Pulse Ox 05/17/23 18:31 157/97 H 05/17/23 18:31 86 22 95 05/17/23 18:30 85 22 95 05/17/23 18:25 161/100 H 05/17/23 18:25 89 22 95 05/17/23 18:20 151/110 H 05/17/23 18:20 89 19 95 05/17/23 18:16 86 22 95 05/17/23 18:16 152/97 H 05/17/23 18:10 172/98 H 05/17/23 18:10 87 22 95 05/17/23 18:05 148/114 H 05/17/23 18:05 86 19 95 05/17/23 18:01 88 22 93 05/17/23 18:01 151/93 H 05/17/23 18:00 90 22 94 05/17/23 17:55 154/95 H 05/17/23 17:55 88 22 92 05/17/23 17:50 151/93 H 05/17/23 17:50 86 19 90 05/17/23 17:46 87 22 90 05/17/23 17:46 146/94 H 05/17/23 17:40 154/105 H 05/17/23 17:40 87 22 88 L 05/17/23 17:35 144/104 H 05/17/23 17:35 81 19 96 05/17/23 17:31 141/107 H 05/17/23 17:31 89 22 95 05/17/23 17:30 88 22 96 05/17/23 17:26 87 19 95 05/17/23 17:26 163/96 H 05/17/23 17:20 164/98 H 05/17/23 17:20 89 19 97 05/17/23 17:16 152/106 H 05/17/23 17:16 87 22 99 05/17/23 17:10 171/99 H 05/17/23 17:10 88 22 99 05/17/23 17:05 154/99 H 05/17/23 17:05 89 19 98 05/17/23 17:04 156/103 H 05/17/23 17:04 87 22 99 05/17/23 17:00 87 19 98 05/17/23 16:56 91 H 19 89 L 05/17/23 16:56 149/98 H 05/17/23 16:51 87 19 97 05/17/23 16:51 168/102 H 05/17/23 16:45 172/112 H 05/17/23 16:45 87 19 96 05/17/23 16:41 85 19 96 05/17/23 16:41 162/99 H 05/17/23 16:35 166/96 H 05/17/23 16:35 86 4 L 97 05/17/23 16:31 84 2 L 97 05/17/23 16:31 155/94 H 05/17/23 16:30 85 2 L 97 05/17/23 17:58 90 05/17/23 17:50 87 146/94 H 05/17/23 17:43 88 22 96 05/17/23 17:35 05/17/23 17:27 88 163/96 H 05/17/23 16:00 05/17/23 16:00 83 05/17/23 14:50 138/89 05/17/23 14:50 82 22 92 05/17/23 14:45 85 20 88 L 05/17/23 14:45 142/104 H 05/17/23 14:40 139/91 05/17/23 14:40 82 23 92 05/17/23 14:35 136/85 05/17/23 14:35 83 18 92 05/17/23 14:30 84 19 90 05/17/23 14:30 139/90 05/17/23 14:25 129/85 05/17/23 14:25 83 19 92 05/17/23 14:21 83 22 92 05/17/23 14:21 140/80 05/17/23 14:15 90 14 91 05/17/23 14:15 150/91 H 05/17/23 14:10 84 16 92 05/17/23 14:10 140/88 05/17/23 14:05 140/85 05/17/23 14:05 86 18 91 05/17/23 14:01 121/83 05/17/23 14:01 86 15 92 05/17/23 14:00 87 12 92 05/17/23 13:55 152/92 H 05/17/23 13:55 89 24 90 05/17/23 13:53 167/144 H 05/17/23 13:53 95 H 24 90 05/17/23 13:51 167/137 H 05/17/23 13:51 87 15 91 05/17/23 14:13 85 24 91 05/17/23 13:50 89 16 90 05/17/23 13:50 134/88 05/17/23 13:37 84 18 98 05/17/23 13:37 151/91 H 05/17/23 13:35 190/103 H 05/17/23 13:35 86 20 98 05/17/23 13:32 90 25 H 97 05/17/23 13:32 158/91 H 05/17/23 13:30 86 19 82 L 05/17/23 13:30 140/89 05/17/23 13:00 93 H 18 95 05/17/23 13:00 158/100 H 05/17/23 12:30 81 22 94 05/17/23 12:06 88 21 93 05/17/23 12:06 154/92 H 05/17/23 12:00 84 19 94 05/17/23 12:00 146/89 H 05/17/23 11:41 146/89 H 05/17/23 11:41 90 19 94 05/17/23 11:30 89 25 H 96 05/17/23 11:00 81 19 95 05/17/23 11:00 137/81 05/17/23 10:30 79 21 97 05/17/23 12:13 90 19 94 05/17/23 12:05 83 154/92 H 05/17/23 11:44 91 H 146/89 H 05/17/23 11:40 89 22 146/89 H 95 05/17/23 10:00 05/17/23 07:15 80 20 91 05/17/23 10:10 76 18 96 05/17/23 10:00 79 20 05/17/23 10:00 124/83 05/17/23 09:42 05/17/23 09:31 36.7 C 88 22 145/85 H 91 05/17/23 09:00 86 22 147/85 H 92 05/17/23 08:01 133/87 05/17/23 08:01 79 18 98 05/17/23 08:00 80 18 97 05/17/23 07:01 81 22 98 05/17/23 08:57 86 O2 Del Method O2 Del Method FiO2 05/17/23 18:31 05/17/23 18:31 05/17/23 18:30 05/17/23 18:25 05/17/23 18:25 05/17/23 18:20 05/17/23 18:20 05/17/23 18:16 05/17/23 18:16 05/17/23 18:10 05/17/23 18:10 05/17/23 18:05 05/17/23 18:05 05/17/23 18:01 05/17/23 18:01 05/17/23 18:00 05/17/23 17:55 05/17/23 17:55 05/17/23 17:50 05/17/23 17:50 05/17/23 17:46 05/17/23 17:46 05/17/23 17:40 05/17/23 17:40 05/17/23 17:35 05/17/23 17:35 05/17/23 17:31 05/17/23 17:31 05/17/23 17:30 05/17/23 17:26 05/17/23 17:26 05/17/23 17:20 05/17/23 17:20 05/17/23 17:16 05/17/23 17:16 05/17/23 17:10 05/17/23 17:10 05/17/23 17:05 05/17/23 17:05 05/17/23 17:04 05/17/23 17:04 05/17/23 17:00 05/17/23 16:56 05/17/23 16:56 05/17/23 16:51 05/17/23 16:51 05/17/23 16:45 05/17/23 16:45 05/17/23 16:41 05/17/23 16:41 05/17/23 16:35 05/17/23 16:35 05/17/23 16:31 05/17/23 16:31 05/17/23 16:30 05/17/23 17:58 70 05/17/23 17:50 05/17/23 17:43 60 05/17/23 17:35 Mechanical Vent 05/17/23 17:27 05/17/23 16:00 Mechanical Vent 05/17/23 16:00 05/17/23 14:50 05/17/23 14:50 05/17/23 14:45 05/17/23 14:45 05/17/23 14:40 05/17/23 14:40 05/17/23 14:35 05/17/23 14:35 05/17/23 14:30 05/17/23 14:30 05/17/23 14:25 05/17/23 14:25 05/17/23 14:21 05/17/23 14:21 05/17/23 14:15 05/17/23 14:15 05/17/23 14:10 05/17/23 14:10 05/17/23 14:05 05/17/23 14:05 05/17/23 14:01 05/17/23 14:01 05/17/23 14:00 05/17/23 13:55 05/17/23 13:55 05/17/23 13:53 05/17/23 13:53 05/17/23 13:51 05/17/23 13:51 05/17/23 14:13 60 05/17/23 13:50 05/17/23 13:50 05/17/23 13:37 05/17/23 13:37 05/17/23 13:35 05/17/23 13:35 05/17/23 13:32 05/17/23 13:32 05/17/23 13:30 05/17/23 13:30 05/17/23 13:00 05/17/23 13:00 05/17/23 12:30 05/17/23 12:06 05/17/23 12:06 05/17/23 12:00 05/17/23 12:00 05/17/23 11:41 05/17/23 11:41 05/17/23 11:30 05/17/23 11:00 05/17/23 11:00 05/17/23 10:30 05/17/23 12:13 30 05/17/23 12:05 05/17/23 11:44 05/17/23 11:40 BiPAP 05/17/23 10:00 30 05/17/23 07:15 21 05/17/23 10:10 05/17/23 10:00 05/17/23 10:00 05/17/23 09:42 BiPAP 05/17/23 09:31 BiPAP 05/17/23 09:00 05/17/23 08:01 05/17/23 08:01 05/17/23 08:00 05/17/23 07:01 05/17/23 08:57 all noted and reviewed including below
[2023-05-18] MEDS: propofoL 1,000 MG/100 ML VIAL IV SCH ×4 (04:10→11:11)
[2023-05-18 05:56] LABS: Basophils # (auto) 0.02 K/uL (0.00-0.20); Basophils % (auto) 0.4 %; Eosinophils # (auto) 0.13 K/uL (0.00-0.50); Eosinophils % (auto) 2.4 %; Hematocrit (blood only) 37.6 % (42.0-52.0); Hemoglobin 11.9 g/dl (14.0-18.0); Immature Granulocytes # (auto) 0.06 K/uL (0.01-0.20); Immature Granulocytes % (auto) 1.1 %; Lymphocytes # (auto) 0.61 K/uL (1.20-3.40); Lymphocytes % (auto) 11.4 %; Mean Corpuscular Hemoglobin 29.9 pg (25.0-34.0); Mean Corpuscular Hgb Conc 31.6 g/dL (32.0-36.0); Mean Corpuscular Volume 94.5 fL (80.0-100.0); Mean Platelet Volume 11.2 fL (9.4-12.4); Monocytes # (auto) 0.59 K/uL (0.11-0.59); Monocytes % (auto) 11.1 %; Neutrophils # (auto) 3.92 K/uL (1.40-6.50); Neutrophils % (auto) 73.6 %; Platelet Count 246 K/uL (130-400); RDW Coefficient of Variation 16.4 % (11.5-14.5); RDW Standard Deviation 57.2 fL (36.4-46.3); Red Blood Count 3.98 M/uL (4.70-6.10); White Blood Count 5.33 K/ul (4.8-10.8)
[2023-05-18 06:02] LABS: Partial Thromboplastin Ratio 1.4; Partial Thromboplastin Time 39.8 Seconds (21.0-31.0)
[2023-05-18 06:11] LABS: BUN Creatinine Ratio 23.9 (10-20); Calcium 9.7 mg/dl (8.6-10.3); Creatinine Clr Calc Pharmacy 45.7 ml/min; Est GFR (African American) 23.1 ml/min; Est GFR (Non-African American) 19.9 ml/min; Magnesium 2.8 mg/dl (1.7-2.4); Potassium 4.5 mmol/L (3.5-5.1)
[2023-05-18] MEDS: METOPROLOL TARTRATE 1 MG/ML VIAL IV SCH ×3 (06:18→22:14)
[2023-05-18] MEDS ORDERED: DEXTROSE 50% 50 ML SYRINGE IV ONE ×3 (07:14→08:32)
--- NOTE | 2023-05-18 07:29 | XRay Report ---
XR chest 1V portable HISTORY: 57 years-old Male Resp failure acute respiratory failure. COMPARISON: 05/17/2023 TECHNIQUE: AP view of the chest FINDINGS: Cardiac silhouette is enlarged. Tracheostomy cannula overlies the midline, 4.7 cm superior to the car sharan. Enteric tube distal tip projects over the gastric body. Hypoinflation with mild right hemidiaphr agmatic elevation. Trace left pleural effusion with mild left basilar predominant opacities. Degenera tive changes of the shoulders and spine. IMPRESSION: 1. Tube positioning as above. 2. Hypoinflation. 3. Unchanged small left pleural effusion with left basilar opacities. ACT 112: Negative or not required by law. The above report was generated using voice recognition software. It may contain grammatical, syntax o r spelling errors. Electronically signed by: Mayito Garza M.D. 05/18/2023 7:27 AM
[2023-05-18] MEDS ORDERED: Nursing to Pharmacy Communication SCH ×2 (07:45→08:15)
[2023-05-18] MEDS: CEFEPIME 1,000 MG in SYRINGE 0 ML IV SCH (07:46)
[2023-05-18] MEDS: carvediloL 6.25 MG TAB PO SCH (07:47)
[2023-05-18] MEDS ORDERED: carvediloL 6.25 MG TAB PO ONE (08:10)
[2023-05-18] MEDS: HEPARIN SODIUM/DEXTROSE 25,000 UNITS/500 ML BAG IV SCH ×2 (08:19→19:39)
[2023-05-18] MEDS: PLASMA-LYTE A 1,000 ML IV SCH ×4 (08:21→14:32)
--- NOTE | 2023-05-18 08:22 | Critical Care Progress Note ---
Date of Service May 18, 2023 Assessment & Plan (1) CKD (chronic kidney disease) stage 3, GFR 30-59 ml/min: (2) Stroke: (3) Slurring of speech: (4) Hypoxia: (5) Epigastric abdominal pain: (6) Eosinophilia: (7) DVT (deep venous thrombosis): Plan Reason Critically Ill: 57 YOM admitted for stroke like symptoms currently with worsening of aphasia, left sided weakness and tachypnea on BiPAP with concern for respiratory failure. Neuro -CVA/Stroke like symptoms, Aphasia --Encephalopathy -Acute on chronic stroke symptoms- with possible extension of stroke vs. uremic encephalopathy or combination - On initial evaluation not moving his left side without coaxing- on arrival to ICU and during transport patient spontaneously moving left arm and left leg - remains aphasic - CT head negative x2, no signs of bleeding - MRI would be beneficial- Consider sedating for completion of study if respiratory efforts improve -Stroke system started more than 24 hours ago --> not TNK candidate - No Carotid Stenosis -TSH, sodium, calcium, glucose within normal limit on 05/15/2023 -Follow-up autoimmune work-up -ESR and CRP are elevated for the patient which is nonspecific Neurology on board Cardiac -HTN, HLD - Allow for permissive HTN We will start the patient on metoprolol IV given that he failed swallow eval - High Dose statin therapy - 40mg Atorvastatin Respiratory -Acute on Chronic Respiratory failure, Obesity Hypoventilation syndrome -- Trach dependent respiratory failure Trach size 8 XLT proximal placed by Dr. Dubon 05/17/2023 GI -Morbid Obesity - no acute needs RENAL/LYTES - CHERYL on CKD --> improving -Monitor BUNs/creatinine -Avoid nephrotoxic medication - Nephrology on board - No acute need - Starks to gravity ENDO - No acute needs - HGB A1C 5.5 range -Continue with ICU hypoglycemia protocol HEME -Hx of Eosinophilia on chronic prednisone, HX of DVT History of eosinophil count as high as 3400 10/17/2022 - Follows with Allergy- on steroid taper -On prednisone taper since 04/28/2023. Was started on 40 mg and was supposed to decrease by 10 mg every week. -- History of DVT On chronic warfarin follow daily INR to goal 2-2.5 ID - -- Pseudomonas pansensitive in the urine Started on Rocephin 05/15/2023 --> changed to cefepime 05/17/2023, will continue for 10 days --Prophylaxis VTE: Heparin drip GI: Pepcid Lines: Peripheral Diet: Tube feeds Plan: In/out: +1.2 L, urine output 1700 mL I will decrease the IV fluid rate to 50 mL/h Increase the tube feeds rate gradually. I will increase the Coreg to 12.5 mg twice daily and gradually increase it so that we are able to get him off of IV metoprolol. Currently we will decrease metoprolol rate to 5 mg every 8 hours Resume heparin drip Patient will need long-term placement. Case was discussed with Dr. Rea I have personally spent 37 minutes of critical care time in the direct management of this patient. This is a life/limb threatening event. This includes time spent evaluating patient, direct bedside care, chart review, placing orders, interpretation of diagnostic studies, discussion with consultants, patient, and family members, as well as other required patient management activities. This time is exclusive of all separately billable procedures, and teaching time and separate from and in addition to any other critical care service time. Please note the above document was generated using voice recognition software. It may contain grammatical, syntax or spelling errors. Admission and Anticipated Discharge Date Admission Date: May 12, 2023 Subjective Patient seen and examined at bedside. No acute distress, no adverse events overnight He was on 10 of propofol and 75 of fentanyl at time of examination He is awaking and answering question by nodding his head. Denied any headache, no chest pain Was complaining of feeling cold. Review of Systems 2 Review of Systems: All systems reviewed & are unremarkable except as noted in Subjective Physical Exam Physical Exam: Constitutional: No acute distress HEENT: EOMI, PERRLA, positive trach Respiratory system: Decreased air entry bilaterally, no wheeze, no rhonchi, no crackles CVS: S1-S2 positive, no murmurs or gallops, distant heart sounds Abdomen: Soft, nontender, nondistended, positive bowel sounds x4, obese Extremities: +2 pulses bilaterally radialis/ dorsalis pedis, no cyanosis, no edema Neuro: Awake and alert, bilateral lower extremity 3 out of 5, right upper extremity 3 out of 5, left upper extremity 0 out of 5, Babinski negative Psych: Flat mood and affect G/U: Positive Starks Skin: no rashes, warm and dry Lymphatic: no cervical or axillary lymphadenopathy Results & Data Results & Data Vital Signs (Past 12 Hours) Vital Signs Temp Pulse Resp BP Pulse Ox O2 Del Method FiO2 05/18/23 07:45 83 28 H 91 50 05/18/23 06:42 71 141/92 H 05/18/23 06:18 71 130/93 05/18/23 03:16 37.2 C 05/18/23 04:00 77 22 126/87 92 45 05/18/23 03:30 72 22 136/86 96 45 05/18/23 03:00 73 22 125/88 95 45 05/18/23 02:30 99 H 22 137/91 95 05/18/23 02:14 70 22 145/93 H 95 05/18/23 03:33 22 45 05/18/23 02:16 77 05/18/23 02:00 73 22 145/93 H 95 45 05/17/23 23:01 81 22 154/83 H 98 05/17/23 22:00 72 22 149/97 H 99 05/17/23 21:00 75 22 129/89 98 05/18/23 00:25 94 Mechanical Vent 45 05/18/23 00:25 37.1 C 05/17/23 23:40 22 70 05/18/23 00:08 77 05/17/23 23:51 78 154/83 H 05/17/23 21:10 37.0 C 05/17/23 20:45 Mechanical Vent 70 05/17/23 20:31 77 22 132/98 99 Laboratory Results 05/18/23 05:31 05/18/23 05:31 Coding Level of Care Code 32911 CRITICAL CARE 1ST 30-74M Diagnoses CKD (chronic kidney disease) stage 3, GFR 30-59 ml/min N18.30 Stroke I63.9 Slurring of speech R47.81 Hypoxia R09.02 Epigastric abdominal pain R10.13 Eosinophilia D72.19 DVT (deep venous thrombosis) I82.409 Time Spent (min) 37
[2023-05-18] MEDS: allopurinoL 300 MG TAB PO SCH (08:39)
[2023-05-18] MEDS: FAMOTIDINE 20 MG in SYRINGE 3 ML IV SCH (08:40)
[2023-05-18] MEDS: ATORVASTATIN 40 MG TAB PO SCH (08:40)
[2023-05-18] MEDS: FERROUS SULFATE 325 MG TAB PO SCH (08:40)
[2023-05-18] MEDS: FOLIC ACID 1 MG TAB PO SCH (08:40)
[2023-05-18] MEDS: THIAMINE HCL 100 MG TAB NG SCH (08:40)
[2023-05-18] MEDS: predniSONE 10 MG TABLET PO SCH (08:40)
[2023-05-18] MEDS: NOVASOURCE RENAL 2.0 CAL 1000ML BAG NG SCH (09:00)
[2023-05-18] MEDS ORDERED: GLUCAGON FOR INJ 1 MG VIAL IM PRN (11:00)
[2023-05-18] MEDS ORDERED: GLUCOSE 40% GEL 15 GM TUBE PO PRN (11:00)
[2023-05-18] MEDS ORDERED: DEXTROSE 50% 50 ML SYRINGE IV PRN (11:00)
[2023-05-18] MEDS ORDERED: CARBOHYDRATES FOR HYPOGLYCEMIA PO PRN (11:00)
[2023-05-18] MEDS ORDERED: GLUCOSE 10 TAB/TUBE PO PRN (11:00)
[2023-05-18 13:17] LABS: Uric Acid, Random Urine 17 mg/dL
[2023-05-18] MEDS: TUBE FEEDING WATER FLUSH NG SCH ×3 (14:32→22:30)
[2023-05-18 15:36] LABS: Partial Thromboplastin Ratio 2.3
[2023-05-18 15:40] LABS: Partial Thromboplastin Time 64.7 Seconds (21.0-31.0)
--- NOTE | 2023-05-18 15:50 | Nephrology Progress Note ---
Date of Service May 18, 2023 Assessment & Plan (1) CHERYL (acute kidney injury): Plan: Further improving nonoliguric stage II acute kidney injury likely ischemic ATN multifactorial in the setting of one diuretic dose, mild tachycardia in pt at baseline quite susceptible to CHERYL. Baseline creatinine 1.7-1.9 in pt quite prone to CHERYL based on previous admissions' renal profile. did have single 20 mg torsemide 05/12. presented 05/11 w/ creatinine 1.5, then rapidly up to 2.6 after single torsemide dose > peak creatinine 4.4 on 05/15, down further today to 4.3. Admission UA unremarkable for inflammation; no eosinophilia currently or as of spring. serum chemistries acceptable; mild respiratory acidosis addressed w/ bipap. Urine output remains borderline. not fluid overloaded on imaging 05/13; exam is very difficult to assess volume status meaningfully. renal u/s w/ BL cysts, probably w/ some complexity overall he is just under 10 L positive on the admission; UOP up today after long wait 05/15 follow up UA c/w a crenshaw but may also suggest other inflammation/nephritis -- new since admission; urine cx w/ e coli covered w/ ceftriaxone ->>today halved plasmaylte rate >continue uptitration of TF, FW flushes resumed today >>continue IV metoprolol -daily bmp -avoid IV contrast -target SBP 130-140s, HR <90 if feasible -continue to hold torsemide -cont strict I/O Care coordinated w/ Dr Wray. (2) CKD (chronic kidney disease) stage 3, GFR 30-59 ml/min: Plan: baseline creatinine 1.7-1.9 as OP in 2022 > follows w/ Dr Agee (3) Stroke: Plan: per primary service and neuro (4) Bedbound: Plan: -for about 18 months now for clinically unclear reasons; exceptional deconditioning; curious if neurology may have insight/recommend further w/u if/once acute stroke issue stabilized Admission and Anticipated Discharge Date Admission Date: May 12, 2023 Subjective seen on rounds at 0800; restarting TF and FWF and uptitrating. sedated still after trach yesterday; on ventilator still Review of Systems Review of Systems: Unobtainable due to reduced consciousness Physical Exam Constitutional: well developed, well nourished and + morbidly obese; no acute distress Eyes: EOM intact bilaterally ENMT: Ears: no external ear abnormality Nose: no external nose abnormality Mouth: + dry oral mucous membranes Neck: + tracheostomy present; no nuchal rigidity Respiratory: normal respiratory effort Auscultation: + diminished lung sounds Cardiovascular: Rate/Rhythm: regular rate and regular rhythm Extremities: no edema Gastrointestinal (Abdomen): Inspection/Auscultation: normal bowel sounds Percussion/Palpation: abdomen soft; abdomen nontender Musculoskeletal: Extremities: + abnormal strength Skin: no rashes, warm and dry Results & Data Vital Signs (Past 12 Hours) Vital Signs Temp Pulse Resp BP Pulse Ox O2 Del Method FiO2 05/18/23 15:00 81 19 132/77 91 Mechanical Vent 50 05/18/23 14:34 85 23 92 50 05/18/23 14:00 82 22 145/85 H 92 Mechanical Vent 50 05/18/23 13:00 78 22 137/83 91 Mechanical Vent 50 05/18/23 12:00 37.1 C 05/18/23 12:00 80 22 134/80 94 Mechanical Vent 50 05/18/23 11:30 83 22 142/92 H 93 Mechanical Vent 50 05/18/23 07:00 37.0 C 05/18/23 11:49 89 22 92 50 05/18/23 11:00 76 22 129/79 93 Mechanical Vent 50 05/18/23 10:30 19 145/97 H 93 Mechanical Vent 50 05/18/23 10:00 75 22 130/80 94 Mechanical Vent 50 05/18/23 09:30 77 22 137/89 95 Mechanical Vent 50 05/18/23 10:00 Mechanical Vent 50 05/18/23 09:00 73 22 126/79 94 Mechanical Vent 50 05/18/23 08:30 77 22 123/86 93 Mechanical Vent 50 05/18/23 08:01 86 22 147/93 H 99 Mechanical Vent 50 05/18/23 07:30 71 22 136/83 91 Mechanical Vent 50 05/18/23 07:01 102 H 22 142/86 H 91 Mechanical Vent 50 05/18/23 07:45 83 28 H 91 50 05/18/23 06:42 71 141/92 H 05/18/23 06:18 71 130/93 05/18/23 04:00 77 22 126/87 92 45 Laboratory Results 05/18/23 05:31 05/18/23 05:31
[2023-05-18] MEDS ORDERED: carvediloL 12.5 MG TAB PO SCH (17:00)
--- NOTE | 2023-05-18 19:00 | Hospitalist Progress Note ---
Date of Service May 18, 2023 Assessment & Plan (1) Slurring of speech: Plan: per previous attending notes with addendum: This is a 57 yo M w/ hypertension,HLD, morbid obesity, chronic diastolic CHF, and ambulatory dysfunction currently wheelchair-bound hx of gout, rheumatoid arthritis, tobacco abuse,chronic back pain, medication non compliance, chronic kidney disease, morbid obesity, obesity hypoventilation syndrome, history of DVT on Coumadin currently living at home is brought in because of strokelike symptoms since around 5 PM he noticed to have slurred speech. Metabolic encephalopathy Probable acute CVA Strokelike symptoms Slurred speech CT head in ER - negative CTA head and neck not done because of history of significant CHERYL in the recent past Patient on Coumadin and INR therapeutic TNK was not given because of INR therapeutic Patient states he is severely claustrophobic for MRI scan Echo - EF 60 to 65%. Moderate concentric LVH. RV is grossly normal size. RV systolic function is qualitatively normal. Poorly visualized valvular anatomy. Carotid Doppler 1. Mild atherosclerosis of the carotid bulbs without hemodynamically significant stenosis. 2. Normal antegrade vertebral flow bilaterally. 05/12 CT head repeat - negative Added aspirin 81 and statin transferred to ICU, required bipap x 3 days s/p trach placement Vent Mgt per ICU Acute Kidney Injury Crea 4.2 to 3.2 Hypertension On Coreg and verapamil IV Metoprolol History DVT on heparin drip history of gout Allopurinol Rheumatoid arthritis Says currently on prednisone 30 mg daily seems to be on tapering dose Looks like he was on 5 to 10 mg daily in the past Tapering now per ICU team Morbid obesity Obesity hypoventilation syndrome Not using BiPAP at home. Says he had nocturnal study done recently and he does n ot have results yet. Chronic diastolic CHF Torsemide on hold due to CHERYL History of anemia On iron supplements Hemoglobin stable DVT prophylaxis Heparin drip Disposition - pending Full code Admission and Anticipated Discharge Date Admission Date: May 12, 2023 Subjective ff up for encephalopathy, etc sedated, intubated not in distress no signs of pain Review of Systems Review of Systems: Unobtainable due to endotracheal tube Physical Exam Physical Exam: General- sedated, breathing with no effort or accessory muscle use Eyes- anicteric Neck- no JVD Lungs- clear breath sounds bilaterally Heart- normal rate, regular rhythm; no murmurs Abdomen- normal bowel sounds, nondistended, soft, nontender Extremities- no pretibial edema, no calf tenderness Neuro- sedated Skin- warm & dry Results & Data Results & Data Vital Signs (Past 12 Hours) Vital Signs Temp Pulse Resp BP Pulse Ox O2 Del Method FiO2 05/18/23 18:01 81 22 149/91 H 90 Mechanical Vent 50 05/18/23 17:00 84 19 155/96 H 91 Room Air 05/18/23 16:00 77 19 145/84 H 92 Mechanical Vent 50 05/18/23 16:00 36.7 C 05/18/23 15:00 81 19 132/77 91 Mechanical Vent 50 05/18/23 14:34 85 23 92 50 05/18/23 14:00 82 22 145/85 H 92 Mechanical Vent 50 05/18/23 13:00 78 22 137/83 91 Mechanical Vent 50 05/18/23 12:00 37.1 C 05/18/23 12:00 80 22 134/80 94 Mechanical Vent 50 05/18/23 11:30 83 22 142/92 H 93 Mechanical Vent 50 05/18/23 07:00 37.0 C 05/18/23 11:49 89 22 92 50 05/18/23 11:00 76 22 129/79 93 Mechanical Vent 50 05/18/23 10:30 19 145/97 H 93 Mechanical Vent 50 05/18/23 10:00 75 22 130/80 94 Mechanical Vent 50 05/18/23 09:30 77 22 137/89 95 Mechanical Vent 50 05/18/23 10:00 Mechanical Vent 50 05/18/23 09:00 73 22 126/79 94 Mechanical Vent 50 05/18/23 08:30 77 22 123/86 93 Mechanical Vent 50 05/18/23 08:01 86 22 147/93 H 99 Mechanical Vent 50 05/18/23 07:30 71 22 136/83 91 Mechanical Vent 50 05/18/23 07:01 102 H 22 142/86 H 91 Mechanical Vent 50 05/18/23 07:45 83 28 H 91 50
[2023-05-18] MEDS ORDERED: fentaNYL citrate PF 100 MCG/2 ML VIAL IV STA ×2 (19:53→21:45)
[2023-05-18] MEDS ORDERED: ALBUTEROL 0.083% NEBU SOLN 3 ML VIAL NEB PRN (21:44)
[2023-05-18] MEDS ORDERED: fentaNYL citrate PF 100 MCG/2 ML VIAL IV ONE (21:45)
[2023-05-18] MEDS: CEFEPIME 2,000 MG in SYRINGE 0 ML IV SCH (21:55)
--- NOTE | 2023-05-19 00:25 | Magnetic Resonance Report ---
Exam(s): MRI HEAD Without Contrast EXAM: MR Head Without Intravenous Contrast CLINICAL HISTORY: Reason for exam: Stroke. TECHNIQUE: Magnetic resonance images of the head/brain without intravenous contrast in multiple planes. COMPARISON: Comparison made to prior head CT from May 13, 2023. FINDINGS: Brain: There is a large acute/subacute ischemic injury of the lake with extensive cytotoxic edema. Mild to moderate nonspecific white matter changes. No evidence of hemorrhagic transformation. No mass. No hemorrhage. The flow voids at the base the brain are intact. Ventricles: Mild ventriculomegaly. Bones/joints: Unremarkable. Sinuses: Chronic maxillary, sphenoid and ethmoid sinusitis. No acute sinusitis. Mastoid air cells: There is a small amount of fluid in the right mastoid air cells. No mastoid effusion. Orbits: Findings concerning for thyroid ophthalmopathy, which can be seen in the setting of Graves' disease. IMPRESSION: Acute/subacute ischemic injury of the lake without evidence of hemorrhagic transformation. Electronically signed by: Janis Riddle MD 05/19/23 00:24 AM
[2023-05-19] MEDS: TUBE FEEDING WATER FLUSH NG SCH ×6 (02:30→22:30)
[2023-05-19] MEDS ORDERED: fentaNYL citrate PF 100 MCG/2 ML VIAL IV ONE (03:04)
[2023-05-19] MEDS: PLASMA-LYTE A 1,000 ML IV SCH (03:18)
[2023-05-19] MEDS ORDERED: fentaNYL citrate PF 100 MCG/2 ML VIAL ONE (03:21)
[2023-05-19 04:53] LABS: Basophils # (auto) 0.04 K/uL (0.00-0.20); Basophils % (auto) 0.6 %; Eosinophils # (auto) 0.15 K/uL (0.00-0.50); Eosinophils % (auto) 2.3 %; Hematocrit (blood only) 37.1 % (42.0-52.0); Hemoglobin 11.7 g/dl (14.0-18.0); Immature Granulocytes # (auto) 0.15 K/uL (0.01-0.20); Immature Granulocytes % (auto) 2.3 %; Lymphocytes # (auto) 0.78 K/uL (1.20-3.40); Lymphocytes % (auto) 11.8 %; Mean Corpuscular Hemoglobin 29.8 pg (25.0-34.0); Mean Corpuscular Hgb Conc 31.5 g/dL (32.0-36.0); Mean Corpuscular Volume 94.6 fL (80.0-100.0); Mean Platelet Volume 10.9 fL (9.4-12.4); Monocytes # (auto) 0.74 K/uL (0.11-0.59); Monocytes % (auto) 11.2 %; Neutrophils # (auto) 4.73 K/uL (1.40-6.50); Neutrophils % (auto) 71.8 %; Platelet Count 256 K/uL (130-400); RDW Coefficient of Variation 16.1 % (11.5-14.5); RDW Standard Deviation 55.8 fL (36.4-46.3); Red Blood Count 3.92 M/uL (4.70-6.10); White Blood Count 6.59 K/ul (4.8-10.8)
[2023-05-19 05:10] LABS: BUN Creatinine Ratio 27.4 (10-20); Calcium 9.5 mg/dl (8.6-10.3); Creatinine Clr Calc Pharmacy 54.2 ml/min; Est GFR (African American) 28.5 ml/min; Est GFR (Non-African American) 24.6 ml/min; Magnesium 2.7 mg/dl (1.7-2.4); Phosphorus 3.7 mg/dl (2.5-4.9)
[2023-05-19] MEDS: METOPROLOL TARTRATE 1 MG/ML VIAL IV SCH (05:20)
[2023-05-19 05:38] LABS: iSTAT Allen Test Pass; iSTAT Art Bld Gas pCO2 Correct 47 mmHg (35-46); iSTAT Art Bld Gas pH Corrected 7.404 (7.35-7.45); iSTAT Arterial Blood Gas HCO3 29 meg/L (19-24); iSTAT Arterial Blood Gas pCO2 46 mmHg (35-46); iSTAT Arterial Blood Gas pH 7.41 (7.35-7.45); iSTAT Arterial Blood Gas pO2 72 mmHg (80-95); iSTAT Arterial Blood Gas pO2 C 74; iSTAT Carbon Dioxide 30 mmol/L (24-31); iSTAT FiO2 60 %; iSTAT Hematocrit 36 % (42-52); iSTAT Hemoglobin 12.2 g/dl (14.0-18.0); iSTAT Potassium 3.8 mmol/L (3.3-5.0); iSTAT Site R Radial; iSTAT Sodium 137 mmol/L (135-144)
[2023-05-19 05:40] LABS: Partial Thromboplastin Ratio 2.5
[2023-05-19 05:44] LABS: Partial Thromboplastin Time 70.6 Seconds (21.0-31.0)
[2023-05-19] MEDS: HEPARIN SODIUM/DEXTROSE 25,000 UNITS/500 ML BAG IV SCH ×3 (07:14→18:22)
[2023-05-19] MEDS ORDERED: METOPROLOL TARTRATE 1 MG/ML VIAL IV PRN (07:45)
--- NOTE | 2023-05-19 07:49 | Critical Care Progress Note ---
Date of Service May 19, 2023 Assessment & Plan (1) CKD (chronic kidney disease) stage 3, GFR 30-59 ml/min: (2) Stroke: (3) Slurring of speech: (4) Hypoxia: (5) Epigastric abdominal pain: (6) Eosinophilia: (7) DVT (deep venous thrombosis): Plan Reason Critically Ill: 57 YOM admitted for stroke like symptoms currently with worsening of aphasia, left sided weakness and tachypnea on BiPAP with concern for respiratory failure. Neuro -CVA/Stroke like symptoms, Aphasia -- Acute stroke - On initial evaluation not moving his left side without coaxing - remains aphasic - CT head negative x2, no signs of bleeding -Stroke system started more than 24 hours ago --> not TNK candidate - No Carotid Stenosis - c/w Aspirin and statin Brain MRI 05/18/2023 acute/subacute injury of the lake without evidence of hemorrhagic transformation. -TSH, sodium, calcium, glucose within normal limit on 05/15/2023 -Follow-up autoimmune work-up -ESR and CRP are elevated for the patient which is nonspecific 2D echo 05/12/2023: EF 60-65%, moderate concentric LVH, RV systolic function normal Neurology on board Cardiac -HTN, HLD - High Dose statin therapy - 40mg Atorvastatin Respiratory -Acute on Chronic Respiratory failure, Obesity Hypoventilation syndrome -- Trach dependent respiratory failure Trach size 8 XLT proximal placed by Dr. Dubon 05/17/2023 GI -Morbid Obesity - no acute needs RENAL/LYTES - CHERYL on CKD --> improving -Monitor BUNs/creatinine -Avoid nephrotoxic medication - Nephrology on board - No acute need - Starks to gravity ENDO - No acute needs - HGB A1C 5.5 range -Continue with ICU hypoglycemia protocol HEME -Hx of Eosinophilia on chronic prednisone, HX of DVT History of eosinophil count as high as 3400 10/17/2022 - Follows with Allergy- on steroid taper -On prednisone taper since 04/28/2023. Was started on 40 mg and was supposed to decrease by 10 mg every week. -- History of DVT On chronic warfarin follow daily INR to goal 2-2.5 ID - -- Pseudomonas pansensitive in the urine Started on Rocephin 05/15/2023 --> changed to cefepime 05/17/2023, will continue for 10 days --Prophylaxis VTE: Heparin drip GI: Pepcid Lines: Peripheral Diet: Tube feeds Plan: In/out: +1.5 L, urine output 1100 mL Chest x-ray from today shows trach 8 cm above the onesimo Trach seems to be in place, sutures are in place.I did tighten the trach collar. Patient is getting volumes with no leak Increase Coreg to 25 mg every 12. Change metoprolol to only as needed IV 5 mg DC IV fluids. Continue with tube feeds Patient will need long-term placement. Case discussed with nephro. I have personally spent 38 minutes of critical care time in the direct management of this patient. This is a life/limb threatening event. This includes time spent evaluating patient, direct bedside care, chart review, placing orders, interpretation of diagnostic studies, discussion with consultants, patient, and family members, as well as other required patient management activities. This time is exclusive of all separately billable procedures, and teaching time and separate from and in addition to any other critical care service time. Please note the above document was generated using voice recognition software. It may contain grammatical, syntax or spelling errors. Admission and Anticipated Discharge Date Admission Date: May 12, 2023 Subjective Patient seen and examined at bedside. No acute distress, notable since overnight He had an MRI of the brain done yesterday which showed lake acute stroke He denies any headaches Does complain of some abdominal pain Denies any nausea vomiting Has been afebrile Review of Systems Review of Systems: All systems reviewed & are unremarkable except as noted in Subjective Physical Exam Physical Exam: Constitutional: No acute distress HEENT: EOMI, PERRLA, positive trach Respiratory system: Decreased air entry bilaterally, no wheeze, no rhonchi, no crackles CVS: S1-S2 positive, no murmurs or gallops, distant heart sounds Abdomen: Soft, nontender, nondistended, positive bowel sounds x4, obese Extremities: +2 pulses bilaterally radialis/ dorsalis pedis, no cyanosis, no edema Neuro: Awake and alert, bilateral lower extremity 3 out of 5, right upper extremity 3 out of 5, left upper extremity 0 out of 5, Babinski negative Psych: Flat mood and affect G/U: Positive Starks Skin: no rashes, warm and dry Lymphatic: no cervical or axillary lymphadenopathy Results & Data Results & Data Vital Signs (Past 12 Hours) Vital Signs Temp Pulse Resp BP Pulse Ox O2 Del Method FiO2 05/19/23 05:35 85 139/92 05/19/23 05:00 93 H 19 96 05/19/23 05:00 150/92 H 05/19/23 04:00 99 H 27 H 05/19/23 04:00 122/101 H 05/19/23 03:00 86 22 93 05/19/23 03:00 157/93 H 05/19/23 02:46 87 22 94 05/19/23 02:46 154/94 H 05/19/23 02:00 102 H 22 94 05/19/23 02:00 158/95 H 05/19/23 05:20 93 H 150/92 H 05/19/23 02:32 95 H 22 92 60 05/19/23 01:45 87 22 93 05/19/23 01:30 86 22 94 05/19/23 01:15 87 22 93 05/19/23 01:00 89 22 93 05/19/23 01:00 158/97 H 05/19/23 00:45 20 05/19/23 00:30 94 H 22 05/19/23 00:15 81 22 94 05/19/23 00:00 86 22 94 05/19/23 00:00 154/94 H 05/18/23 23:45 96 H 23 93 05/18/23 23:30 132 H 22 05/18/23 23:16 155/99 H 05/18/23 23:16 86 22 92 05/18/23 23:15 85 22 92 05/18/23 23:00 84 22 93 05/18/23 23:00 154/100 H 05/18/23 22:45 78 22 93 05/18/23 22:30 83 22 05/18/23 22:15 84 20 05/18/23 22:15 154/100 H 05/18/23 22:00 86 23 92 05/18/23 22:00 155/96 H 05/18/23 21:45 85 23 95 05/18/23 21:35 163/97 H 05/18/23 21:35 89 22 95 05/18/23 21:32 89 23 95 05/18/23 20:30 86 20 91 05/18/23 20:15 85 20 90 05/18/23 20:00 83 19 88 L 05/18/23 20:00 143/81 H 05/18/23 19:45 84 19 87 L 05/18/23 20:00 Mechanical Vent 05/18/23 20:00 37 C 05/18/23 22:29 84 155/99 H 05/18/23 22:58 77 22 92 60 05/18/23 22:14 90 154/100 H Laboratory Results 05/19/23 04:34 05/19/23 04:34 Coding Level of Care Code 07485 CRITICAL CARE 1ST 30-74M Diagnoses CKD (chronic kidney disease) stage 3, GFR 30-59 ml/min N18.30 Stroke I63.9 Slurring of speech R47.81 Hypoxia R09.02 Epigastric abdominal pain R10.13 Eosinophilia D72.19 DVT (deep venous thrombosis) I82.409 Time Spent (min) 38
[2023-05-19] MEDS: CEFEPIME 2,000 MG in SYRINGE 0 ML IV SCH ×2 (08:03→21:20)
[2023-05-19] MEDS: FAMOTIDINE 20 MG in SYRINGE 3 ML IV SCH (08:03)
[2023-05-19] MEDS: carvediloL 25 MG TAB PO SCH ×2 (08:25→17:53)
[2023-05-19] MEDS: FOLIC ACID 1 MG TAB PO SCH (08:26)
[2023-05-19] MEDS: ATORVASTATIN 40 MG TAB PO SCH (08:26)
[2023-05-19] MEDS: allopurinoL 300 MG TAB PO SCH (08:26)
[2023-05-19] MEDS: FERROUS SULFATE 325 MG TAB PO SCH (08:26)
[2023-05-19] MEDS: predniSONE 10 MG TABLET PO SCH (08:27)
[2023-05-19] MEDS: THIAMINE HCL 100 MG TAB NG SCH (08:27)
--- NOTE | 2023-05-19 08:43 | XRay Report ---
XR chest 1V portable CLINICAL HISTORY: Respiratory failure. COMPARISON STUDY: Chest radiograph May 18, 2023. FINDINGS: The tip of the tracheostomy tube is 7.8 cm above the onesimo. Elevation of the right hemidia phragm is noted. Cardiomegaly is unchanged. There is no evidence for pulmonary edema. Left basilar op acity persists. No pneumothorax is present. Tip of nasogastric tube is within the stomach. IMPRESSION: 1. Tip of tracheostomy tube 7.8 cm above the onesimo. Mild advancement might be considered. 2. No significant change in left basilar opacity. 3. Cardiomegaly without evidence for pulmonary edema. 4. No pneumothorax. ACT 112: Negative or not required by law. Electronically signed by: Shan Pedroza M.D. 05/19/2023 8:40 AM
--- NOTE | 2023-05-19 09:22 | Nephrology Progress Note ---
Date of Service May 19, 2023 Assessment & Plan (1) CHERYL (acute kidney injury): Plan: Further improving nonoliguric stage II acute kidney injury likely ischemic ATN multifactorial in the setting of one diuretic dose, mild tachycardia in pt at baseline quite susceptible to CHERYL. Baseline creatinine 1.7-1.9 in pt quite prone to CHERYL based on previous admissions' renal profile. did have single 20 mg torsemide 05/12. presented 05/11 w/ creatinine 1.5, then rapidly up to 2.6 after single torsemide dose > peak creatinine 4.4 on 05/15, down further today to 4.3. Admission UA unremarkable for inflammation; no eosinophilia currently or as of spring. serum chemistries acceptable; mild respiratory acidosis addressed w/ bipap. Urine output remains borderline. not fluid overloaded on imaging 05/13; exam is very difficult to assess volume status meaningfully. renal u/s w/ BL cysts, probably w/ some complexity overall he is just under 10 L positive on the admission; UOP up today after long wait 05/15 follow up UA c/w a crenshaw but may also suggest other inflammation/nephritis -- new since admission; urine cx w/ e coli covered w/ ceftriaxone ->>d/c IV fluids as he has now got pedal edema >continue uptitration of TF and FW flushes -daily bmp -avoid IV contrast -target SBP 130-140s, HR <90 if feasible -continue to hold torsemide -cont strict I/O Care coordinated w/ Dr Wray. (2) CKD (chronic kidney disease) stage 3, GFR 30-59 ml/min: Plan: baseline creatinine 1.7-1.9 as OP in 2022 > follows w/ Dr Agee (3) Stroke: Plan: per primary service and neuro (4) Bedbound: Plan: -for about 18 months now for clinically unclear reasons; exceptional decondi tioning; curious if neurology may have insight/recommend further w/u if/once acute stroke issue stabilized Admission and Anticipated Discharge Date Admission Date: May 12, 2023 Subjective ff up for encephalopathy, etc Awake, but confused,Has isidro Follows simple commands, UOP good Review of Systems Review of Systems: Unobtainable due to cognitive status Results & Data Vital Signs (Past 12 Hours) Vital Signs Temp Pulse Resp BP Pulse Ox FiO2 05/19/23 07:40 87 22 96 60 05/19/23 07:00 90 22 140/92 96 50 05/19/23 07:45 37.0 C 05/19/23 05:35 85 139/92 05/19/23 05:00 93 H 19 96 05/19/23 05:00 150/92 H 05/19/23 04:00 99 H 27 H 05/19/23 04:00 122/101 H 05/19/23 03:00 86 22 93 05/19/23 03:00 157/93 H 05/19/23 02:46 87 22 94 05/19/23 02:46 154/94 H 05/19/23 02:00 102 H 22 94 05/19/23 02:00 158/95 H 05/19/23 05:20 93 H 150/92 H 05/19/23 02:32 95 H 22 92 60 05/19/23 01:45 87 22 93 05/19/23 01:30 86 22 94 05/19/23 01:15 87 22 93 05/19/23 01:00 89 22 93 05/19/23 01:00 158/97 H 05/19/23 00:45 20 05/19/23 00:30 94 H 22 05/19/23 00:15 81 22 94 05/19/23 00:00 86 22 94 05/19/23 00:00 154/94 H 05/18/23 23:45 96 H 23 93 05/18/23 23:30 132 H 22 05/18/23 23:16 155/99 H 05/18/23 23:16 86 22 92 05/18/23 23:15 85 22 92 05/18/23 23:00 84 22 93 05/18/23 23:00 154/100 H 05/18/23 22:45 78 22 93 05/18/23 22:30 83 22 05/18/23 22:15 84 20 05/18/23 22:15 154/100 H 05/18/23 22:00 86 23 92 05/18/23 22:00 155/96 H 05/18/23 21:45 85 23 95 05/18/23 21:35 163/97 H 05/18/23 21:35 89 22 95 05/18/23 21:32 89 23 95 08/25/23 22:29 84 155/99 H 08/25/23 22:58 77 22 92 60 05/18/23 22:14 90 154/100 H Laboratory Results 05/19/23 04:34 05/19/23 04:34
--- NOTE | 2023-05-19 09:26 | XRay Report ---
XR chest 1V portable CLINICAL HISTORY: Trach adjustment/Check Placement COMPARISON STUDY: Chest radiograph performed earlier today. FINDINGS: Tip of the tracheostomy tube is 7.2 cm above the onesimo. There is no pneumothorax. No defin ite pleural effusion. Cardiomegaly is unchanged. Left basilar opacity persists. Elevation of the righ t hemidiaphragm is unchanged. Tip of nasogastric tube is likely within the stomach. IMPRESSION: 1. Tip of tracheostomy tube 7.2 cm above the onesimo. Additional advancement might be considered. 2. No significant change in appearance of the chest, as described above. ACT 112: Negative or not required by law. Electronically signed by: Shan Pedroza M.D. 05/19/2023 9:24 AM
[2023-05-19] MEDS: NOVASOURCE RENAL 2.0 CAL 1000ML BAG NG SCH (10:02)
--- NOTE | 2023-05-19 11:09 | Neurology Progress Note ---
Date of Service May 19, 2023 Assessment & Plan (1) Stroke: MRI now reveals the cause of the patients anarthria and weakness. Though he was bedbound at baseline, with a stroke of this size in [place] I suspect he is locked in. I was unable to have him reliably look up during my encounter and he does have some additional movement on the R side suggesting a partial locked-in. He is no longer encephalopathic. Prognosis is very poor, especially considering his baseline function and other medical problems managed by the critical care team. Agree he would require long-term care with at least a PEG for nutrition. In light of this MRI finding, would consider palliative care involvement, this is a difficult situation primarily because the patient may have capacity to make these decisions but no way to express himself. Ethics is often needed in this case as well. -- Okay to continue warfarin for secondary stroke prevention. -- Goals of care discussion regarding LTC/PEG/quality of life given partial locked-in state Subjective Telehealth Information I performed this visit using a real-time telehealth connection between my location and the patients location ([facility]). After connecting through interactive tele-video, patient was identified by name and date of and/or wristband check.Patient (or authorized healthcare bank representative) was informed that this was a telemedicine visit and it was being conducted confidentially over secure lines. My office door was closed and no one else was present in the room with me.Patient (or authorized healthcare bank representative) provided consent to proceed with the visit, expressed an understanding of privacy and security of the telemedicine visit, and gave permission to have a hospital bank representative in the room in order to assist with the visit and to conduct portions of the visit, as needed. I informed the patient (or authorized healthcare bank representative) that I reviewed their record and presented the opportunity for them to ask any questions regarding the visit today. The patient agreed to participate. Judson Bowie is a 57 yo M presenting initially on 05/12 for slurred speech in the setting of bipap noncompliance. Since admission he was noted to have aphasia and L sided weakness with waxing/waning mental status despite supportive care with BiPAP. He is otherwise unable to contribute to the history. Prior notes from Dr. Hernnadez reviewed. No significant change since last visit on 05/15. Patient remains unable to communicate but follows commands briskly. Review of Systems Unable to answer Physical Exam Awake, alert. Able to open eyes and look up to command, otherwise gaze is dysconjugate. Subtle ability to nod head. Slight movement of the R side of his face. Slight movement of the R hand, R foot and L foot. Otherwise no movement proximally in those extremities and no movement of LUE. Results & Data Vital Signs (Past 12 Hours) Vital Signs Temp Pulse Resp BP Pulse Ox O2 Del Method FiO2 05/19/23 10:00 78 22 114/69 97 Mechanical Vent 50 05/19/23 09:00 92 H 22 123/85 95 Mechanical Vent 50 05/19/23 08:00 90 22 142/88 H 96 Mechanical Vent 50 05/19/23 07:40 87 22 96 60 05/19/23 09:13 Mechanical Vent 50 05/19/23 07:00 90 22 140/92 96 50 05/19/23 07:45 37.0 C 05/19/23 05:35 85 139/92 05/19/23 05:00 93 H 19 96 05/19/23 05:00 150/92 H 05/19/23 04:00 99 H 27 H 05/19/23 04:00 122/101 H 05/19/23 03:00 86 22 93 05/19/23 03:00 157/93 H 05/19/23 02:46 87 22 94 05/19/23 02:46 154/94 H 05/19/23 02:00 102 H 22 94 05/19/23 02:00 158/95 H 05/19/23 05:20 93 H 150/92 H 05/19/23 02:32 95 H 22 92 60 05/19/23 01:45 87 22 93 05/19/23 01:30 86 22 94 05/19/23 01:15 87 22 93 05/19/23 01:00 89 22 93 05/19/23 01:00 158/97 H 05/19/23 00:45 20 05/19/23 00:30 94 H 22 05/19/23 00:15 81 22 94 05/19/23 00:00 86 22 94 05/19/23 00:00 154/94 H 05/18/23 23:45 96 H 23 93 05/18/23 23:30 132 H 22 05/18/23 23:16 155/99 H 05/18/23 23:16 86 22 92 05/18/23 23:15 85 22 92 Laboratory Results Abnormal lab results 05/18/23 05/18/23 05/18/23 Range/Units 11:25 14:19 18:34 RBC (4.70-6.10) M/uL Hgb (14.0-18.0) g/dl POC Hgb (14.0-18.0) g/dl Hct (42.0-52.0) % POC Hct (42-52) % MCHC (32.0-36.0) g/dL RDW Std Deviation (36.4-46.3) fL RDW Coeff of Cheryl (11.5-14.5) % Lymph # (Auto) (1.20-3.40) K/uL Stewart # (Auto) (0.11-0.59) K/uL APTT 64.7 H* (21.0-31.0) Seconds POC pO2 (80-95) mmHg POC HCO3 (19-24) derek/L POC Base Excess (-9-1.8) derek/L ABG pCO2 (Temp Corrct (35-46) mmHg BUN (6-23) mg/dl Creatinine (0.6-1.4) mg/dl BUN/Creatinine Ratio (10-20) Glucose (70-99(Fasting)) mg/dl POC Glucose 108 H 119 H (70-99) mg/dl Magnesium (1.7-2.4) mg/dl 05/19/23 05/19/23 05/19/23 Range/Units 01:13 04:34 04:34 RBC 3.92 L (4.70-6.10) M/uL Hgb 11.7 L (14.0-18.0) g/dl POC Hgb (14.0-18.0) g/dl Hct 37.1 L (42.0-52.0) % POC Hct (42-52) % MCHC 31.5 L (32.0-36.0) g/dL RDW Std Deviation 55.8 H (36.4-46.3) fL RDW Coeff of Cheryl 16.1 H (11.5-14.5) % Lymph # (Auto) 0.78 L (1.20-3.40) K/uL Stewart # (Auto) 0.74 H (0.11-0.59) K/uL APTT (21.0-31.0) Seconds POC pO2 (80-95) mmHg POC HCO3 (19-24) derek/L POC Base Excess (-9-1.8) derek/L ABG pCO2 (Temp Corrct (35-46) mmHg BUN 75 H (6-23) mg/dl Creatinine 2.74 H D (0.6-1.4) mg/dl BUN/Creatinine Ratio 27.4 H (10-20) Glucose 106 H (70-99(Fasting)) mg/dl POC Glucose 107 H (70-99) mg/dl Magnesium 2.7 H (1.7-2.4) mg/dl 05/19/23 05/19/23 05/19/23 Range/Units 04:34 05:22 07:06 RBC (4.70-6.10) M/uL Hgb (14.0-18.0) g/dl POC Hgb 12.2 L (14.0-18.0) g/dl Hct (42.0-52.0) % POC Hct 36 L (42-52) % MCHC (32.0-36.0) g/dL RDW Std Deviation (36.4-46.3) fL RDW Coeff of Cheryl (11.5-14.5) % Lymph # (Auto) (1.20-3.40) K/uL Stewart # (Auto) (0.11-0.59) K/uL APTT 70.6 H* (21.0-31.0) Seconds POC pO2 72 L (80-95) mmHg POC HCO3 29 H (19-24) derek/L POC Base Excess 4.0 H (-9-1.8) derek/L ABG pCO2 (Temp Corrct 47 H (35-46) mmHg BUN (6-23) mg/dl Creatinine (0.6-1.4) mg/dl BUN/Creatinine Ratio (10-20) Glucose (70-99(Fasting)) mg/dl POC Glucose 127 H (70-99) mg/dl Magnesium (1.7-2.4) mg/dl Diagnostic Findings MRI brain - Large pontine infarct
[2023-05-19 14:15] LABS: Partial Thromboplastin Ratio 1.8
[2023-05-19 14:17] LABS: Partial Thromboplastin Time 51.5 Seconds (21.0-31.0)
--- NOTE | 2023-05-19 15:20 | Hospitalist Progress Note ---
Date of Service May 19, 2023 Assessment & Plan (1) Slurring of speech: Plan: per previous attending notes with addendum: This is a 57 yo M w/ hypertension,HLD, morbid obesity, chronic diastolic CHF, and ambulatory dysfunction currently wheelchair-bound hx of gout, rheumatoid arthritis, tobacco abuse,chronic back pain, medication non compliance, chronic kidney disease, morbid obesity, obesity hypoventilation syndrome, history of DVT on Coumadin currently living at home is brought in because of strokelike symptoms since around 5 PM he noticed to have slurred speech. Metabolic encephalopathy Acute CVA, Robby Strokelike symptoms Slurred speech CT head in ER - negative CTA head and neck not done because of history of significant CHERYL in the recent past Patient on Coumadin and INR therapeutic TNK was not given because of INR therapeutic Patient states he is severely claustrophobic for MRI scan Echo - EF 60 to 65%. Moderate concentric LVH. RV is grossly normal size. RV systolic function is qualitatively normal. Poorly visualized valvular anatomy. Carotid Doppler 1. Mild atherosclerosis of the carotid bulbs without hemodynamically significant stenosis. 2. Normal antegrade vertebral flow bilaterally. 05/12 CT head repeat - negative Added aspirin 81 and statin transferred to ICU, required bipap x 3 days s/p trach placement Vent Mgt per ICU will need LTAC Acute Kidney Injury Crea 4.2 to 3.2 to 2.7 Hypertension On Coreg and verapamil IV Metoprolol History DVT on heparin drip history of gout Allopurinol Rheumatoid arthritis Says currently on prednisone 30 mg daily seems to be on tapering dose Looks like he was on 5 to 10 mg daily in the past Tapering now per ICU team Morbid obesity Obesity hypoventilation syndrome Not using BiPAP at home. Says he had nocturnal study done recently and he does not have results yet. Chronic diastolic CHF Torsemide on hold due to CHERYL History of anemia On iron supplements Hemoglobin stable DVT prophylaxis Heparin drip Disposition - pending Full code Admission and Anticipated Discharge Date Admission Date: May 12, 2023 Subjective ff up for encephalopathy, etc trach in place sleeping but easily awakened Denies pain, shortness of breath Able to follow simple commands no other symptoms no other issues per pediatric physiatrist of Systems Review of Systems: all noted and negative except for above Physical Exam Physical Exam: General- drowsy but arousable, not in distress, breathing with no effort or accessory muscle use Eyes- anicteric Nose- NG tube in place with tube feeding Neck- no JVD trach in place Lungs- clear breath sounds bilaterally, no crackles or wheezing Heart- normal rate, regular rhythm; no murmurs Abdomen- normal bowel sounds, nondistended, soft, nontender Extremities- mild pretibial edema, no calf tenderness Neuro- drowsy, follows simple commands, motor strength r > l Skin- warm & dry Results & Data Results & Data Vital Signs (Past 12 Hours) Vital Signs Temp Pulse Resp BP Pulse Ox O2 Del Method FiO2 05/19/23 14:00 95 H 23 133/93 93 Mechanical Vent 50 05/19/23 13:00 84 22 137/85 94 Mechanical Vent 50 05/19/23 12:00 82 22 134/87 92 Mechanical Vent 50 05/19/23 11:00 84 19 142/85 H 94 Mechanical Vent 50 05/19/23 12:00 37 C 05/19/23 11:20 80 22 94 50 05/19/23 10:00 78 22 114/69 97 Mechanical Vent 50 05/19/23 09:00 92 H 22 123/85 95 Mechanical Vent 50 05/19/23 08:00 90 22 142/88 H 96 Mechanical Vent 50 05/19/23 07:40 87 22 96 60 05/19/23 09:13 Mechanical Vent 50 05/19/23 07:00 90 22 140/92 96 50 05/19/23 07:45 37.0 C 05/19/23 05:35 85 139/92 05/19/23 05:00 93 H 19 96 05/19/23 05:00 150/92 H 05/19/23 04:00 99 H 27 H 05/19/23 04:00 122/101 H 05/19/23 05:20 93 H 150/92 H all noted and reviewed including below
[2023-05-19] MEDS: ICU Protocol for HYPERglycemia SCH ×2 (17:43→21:00)
[2023-05-20] MEDS ORDERED: fentaNYL citrate PF 100 MCG/2 ML VIAL IV STA (00:40)
[2023-05-20] MEDS: TUBE FEEDING WATER FLUSH NG SCH ×6 (02:30→22:56)
[2023-05-20 04:13] LABS: iSTAT Allen Test Pass; iSTAT Art Bld Gas pCO2 Correct 44 mmHg (35-46); iSTAT Art Bld Gas pH Corrected 7.444 (7.35-7.45); iSTAT Arterial Blood Gas HCO3 30 meg/L (19-24); iSTAT Arterial Blood Gas pCO2 43 mmHg (35-46); iSTAT Arterial Blood Gas pH 7.45 (7.35-7.45); iSTAT Arterial Blood Gas pO2 63 mmHg (80-95); iSTAT Arterial Blood Gas pO2 C 65; iSTAT Carbon Dioxide 31 mmol/L (24-31); iSTAT FiO2 50 %; iSTAT Hematocrit 45 % (42-52); iSTAT Hemoglobin 15.3 g/dl (14.0-18.0); iSTAT Potassium 3.7 mmol/L (3.3-5.0); iSTAT Site R Radial; iSTAT Sodium 137 mmol/L (135-144)
[2023-05-20 05:08] LABS: Hematocrit (blood only) 36.5 % (42.0-52.0); Hemoglobin 11.5 g/dl (14.0-18.0); Mean Corpuscular Hemoglobin 29.9 pg (25.0-34.0); Mean Corpuscular Hgb Conc 31.5 g/dL (32.0-36.0); Mean Corpuscular Volume 94.8 fL (80.0-100.0); Mean Platelet Volume 11.5 fL (9.4-12.4); Nucleated RBC # (auto) 0.02 K/uL (0.00-0.12); Nucleated RBC % (auto) 0.3 %; Platelet Count 283 K/uL (130-400); RDW Coefficient of Variation 16.3 % (11.5-14.5); RDW Standard Deviation 57.1 fL (36.4-46.3); Red Blood Count 3.85 M/uL (4.70-6.10); White Blood Count 7.25 K/ul (4.8-10.8)
[2023-05-20 05:23] LABS: BUN Creatinine Ratio 35.4 (10-20); Calcium 9.6 mg/dl (8.6-10.3); Creatinine Clr Calc Pharmacy 63.2 ml/min; Est GFR (Non-African American) 29.3 ml/min; Magnesium 2.5 mg/dl (1.7-2.4); Potassium 3.7 mmol/L (3.5-5.1)
[2023-05-20 05:30] LABS: Basophils # (auto) 0.04 K/uL (0.00-0.20); Basophils % (auto) 0.6 %; Eosinophils # (auto) 0.21 K/uL (0.00-0.50); Eosinophils % (auto) 2.9 %; Immature Granulocytes # (auto) 0.42 K/uL (0.01-0.20); Immature Granulocytes % (auto) 5.8 %; Lymphocytes # (auto) 0.99 K/uL (1.20-3.40); Lymphocytes % (auto) 13.7 %; Monocytes # (auto) 0.69 K/uL (0.11-0.59); Monocytes % (auto) 9.5 %; Neutrophils % (auto) 67.5 %; Polychromasia 1+
[2023-05-20 05:53] LABS: Partial Thromboplastin Ratio 2.3
[2023-05-20 05:54] LABS: Partial Thromboplastin Time 64.8 Seconds (21.0-31.0)
[2023-05-20] MEDS: HEPARIN SODIUM/DEXTROSE 25,000 UNITS/500 ML BAG IV SCH ×2 (06:14→17:19)
[2023-05-20] MEDS: POTASSIUM CHLORIDE / WTR 10 MEQ/100 ML PLCT IV SCH ×2 (06:52→07:46)
[2023-05-20] MEDS: ICU Protocol for HYPERglycemia SCH ×4 (07:40→20:06)
[2023-05-20] MEDS: CEFEPIME 2,000 MG in SYRINGE 0 ML IV SCH ×2 (07:46→20:02)
[2023-05-20] MEDS: FAMOTIDINE 20 MG in SYRINGE 3 ML IV SCH (07:46)
[2023-05-20] MEDS: carvediloL 25 MG TAB PO SCH ×2 (07:47→17:05)
--- NOTE | 2023-05-20 08:07 | Critical Care Progress Note ---
Date of Service May 20, 2023 Assessment & Plan (1) CKD (chronic kidney disease) stage 3, GFR 30-59 ml/min: (2) Stroke: (3) Slurring of speech: (4) Hypoxia: (5) Epigastric abdominal pain: (6) Eosinophilia: (7) DVT (deep venous thrombosis): Plan Reason Critically Ill: 57 YOM admitted for stroke like symptoms currently with worsening of aphasia, left sided weakness and tachypnea on BiPAP with concern for respiratory failure. 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 -TSH, sodium, calcium, glucose within normal limit on 05/15/2023 -Follow-up autoimmune work-up -ESR and CRP are elevated for the patient which is nonspecific 2D echo 05/12/2023: EF 60-65%, moderate concentric LVH, RV systolic function normal Neurology on board Cardiac -HTN, HLD - High Dose statin therapy - 40mg Atorvastatin Respiratory -Acute on Chronic Respiratory failure, Obesity Hypoventilation syndrome -- Trach dependent respiratory failure Trach size 8 XLT proximal placed by Dr. Dubon 05/17/2023 GI -Morbid Obesity - no acute needs RENAL/LYTES - CHERYL on CKD --> improving -Monitor BUNs/creatinine -Avoid nephrotoxic medication - Nephrology on board - No acute need - Starks to gravity ENDO - No acute needs - HGB A1C 5.5 range -Continue with ICU hypoglycemia protocol HEME -Hx of Eosinophilia on chronic prednisone, HX of DVT History of eosinophil count as high as 3400 10/17/2022 - Follows with Allergy- on steroid taper -On prednisone taper since 04/28/2023. Was started on 40 mg and was supposed to decrease by 10 mg every week. -- History of DVT On chronic warfarin follow daily INR to goal 2-2.5 ID - -- Pseudomonas pansensitive in the urine Started on Rocephin 05/15/2023 --> changed to cefepime 05/17/2023, will continue for 10 days --Prophylaxis VTE: Heparin drip GI: Pepcid Lines: Peripheral Diet: Tube feeds Plan: In/out: +315 mL, urine output 1385 Chest x-ray from today shows trach 7 cm above the onesimo. Currently has size 8 XLT-P. Patient getting good volumes. He might need Brovana given his thick neck Try pressure support today. If he does well today then tomorrow we can try trach collar Continue with vent nightly Potassium being replaced Overall prognosis is poor Patient will need long-term placement and PEG tube placement in future I have personally spent 36 minutes of critical care time in the direct management of this patient. This is a life/limb threatening event. This includes time spent evaluating patient, direct bedside care, chart review, placing orders, interpretation of diagnostic studies, discussion with consultants, patient, and family members, as well as other required patient management activities. This time is exclusive of all separately billable procedures, and teaching time and separate from and in addition to any other critical care service time. Please note the above document was generated using voice recognition software. It may contain grammatical, syntax or spelling errors. Admission and Anticipated Discharge Date Admission Date: May 12, 2023 Subjective Patient seen and examined at bedside. No acute distress, no adverse events overnight Denied any headache, no chest pain, no belly pain, no nausea vomiting No abdominal pain. Was moving right upper extremity, right lower extremity to command Review of Systems Review of Systems: All systems reviewed & are unremarkable except as noted in Subjective Physical Exam Physical Exam: Constitutional: No acute distress HEENT: EOMI, PERRLA, positive trach Respiratory system: Decreased air entry bilaterally, no wheeze, no crackles, mild rhonchi right side CVS: S1-S2 positive, no murmurs or gallops, distant heart sounds Abdomen: Soft, nontender, nondistended, positive bowel sounds x4, obese Extremities: +2 pulses bilaterally radialis/ dorsalis pedis, no cyanosis, no edema Neuro: Awake and alert, right lower extremity 3 out of 5, left lower extremity 2 out of 5, right upper extremity 3 out of 5, left upper extremity 0 out of 5, Babinski negative Psych: Flat mood and affect G/U: Positive Starks Skin: no rashes, warm and dry Lymphatic: no cervical or axillary lymphadenopathy Results & Data Results & Data Vital Signs (Past 12 Hours) Vital Signs Pulse Resp BP Pulse Ox O2 Del Method FiO2 05/20/23 06:00 81 22 94 05/20/23 06:00 137/86 05/20/23 05:00 71 22 95 05/20/23 05:00 132/77 05/20/23 04:01 77 22 94 05/20/23 04:01 132/81 05/20/23 04:00 81 22 93 05/20/23 03:00 78 22 94 05/20/23 03:00 150/88 H 05/20/23 02:28 81 23 95 05/20/23 02:28 139/96 05/20/23 02:00 84 22 95 05/20/23 01:00 84 22 94 05/20/23 01:00 159/91 H 05/20/23 00:00 83 22 93 05/20/23 00:00 150/92 H 05/19/23 23:00 76 22 95 05/19/23 23:00 145/92 H 05/19/23 22:00 80 22 94 05/19/23 22:00 141/89 H 05/19/23 22:00 141/89 H 05/19/23 21:00 79 22 95 05/19/23 21:00 146/95 H 05/19/23 21:00 Mechanical Vent 05/20/23 00:03 81 05/20/23 03:55 79 23 93 50 05/19/23 22:46 79 22 96 50 Laboratory Results 05/20/23 04:25 05/20/23 04:25 Coding Level of Care Code 37841 CRITICAL CARE 1ST 30-74M Diagnoses CKD (chronic kidney disease) stage 3, GFR 30-59 ml/min N18.30 Stroke I63.9 Slurring of speech R47.81 Hypoxia R09.02 Epigastric abdominal pain R10.13 Eosinophilia D72.19 DVT (deep venous thrombosis) I82.409 Time Spent (min) 36
--- NOTE | 2023-05-20 08:10 | XRay Report ---
XR chest 1V portable HISTORY: Respiratory failure. COMPARISON: Chest 05/19/2023. FINDINGS: No pneumothorax. The heart remains enlarged. No evidence for pulmonary edema. The tracheost libby tube remains 7.2 cm from the onesimo. Nasogastric tube terminates below the diaphragm. The tip is not included on this study. Chronic elevation right hemidiaphragm again noted. Left basilar linear de nsities persist. IMPRESSION: 1. Lines and tubes remain unchanged in position. 2. Stable cardiomegaly. ACT 112: Negative or not required by law. Electronically signed by: Abdirashid Garcia M.D. 05/20/2023 8:08 AM
[2023-05-20 09:00] LABS: Phosphorus 2.9 mg/dl (2.5-4.9)
[2023-05-20] MEDS ORDERED: FUROSEMIDE INJ 20 MG/2 ML VIAL IV ONE (09:36)
[2023-05-20] MEDS: predniSONE 10 MG TABLET PO SCH (09:37)
[2023-05-20] MEDS: FERROUS SULFATE 325 MG TAB PO SCH (09:37)
[2023-05-20] MEDS: allopurinoL 300 MG TAB PO SCH (09:37)
[2023-05-20] MEDS: FOLIC ACID 1 MG TAB PO SCH (09:37)
[2023-05-20] MEDS: THIAMINE HCL 100 MG TAB NG SCH (09:37)
[2023-05-20] MEDS: ATORVASTATIN 40 MG TAB PO SCH (09:37)
[2023-05-20] MEDS: NOVASOURCE RENAL 2.0 CAL 1000ML BAG NG SCH (09:46)
--- NOTE | 2023-05-20 10:55 | Nephrology Progress Note ---
Date of Service May 20, 2023 Assessment & Plan (1) CHERYL (acute kidney injury): Plan: Further improving nonoliguric stage II acute kidney injury likely ischemic ATN multifactorial in the setting of one diuretic dose, mild tachycardia in pt at baseline quite susceptible to CHERYL. Baseline creatinine 1.7-1.9 in pt quite prone to CHERYL based on previous admissions' renal profile. did have single 20 mg torsemide 05/12. presented 05/11 w/ creatinine 1.5, then rapidly up to 2.6 after single torsemide dose > peak creatinine 4.4 on 05/15, down further today to 4.3. Admission UA unremarkable for inflammation; no eosinophilia currently or as of spring. serum chemistries acceptable; mild respiratory acidosis addressed w/ bipap. Urine output remains borderline. not fluid overloaded on imaging 05/13; exam is very difficult to assess volume status meaningfully. renal u/s w/ BL cysts, probably w/ some complexity overall he is just under 10 L positive on the admission;He has b/l pedal edema now. - Noted neurology, poor prognosis. ->> start furosemide 20 mg iV , >continue uptitration of TF and FW flushes -daily bmp -avoid IV contrast -target SBP 130-140s, HR <90 if feasible -cont strict I/O (2) CKD (chronic kidney disease) stage 3, GFR 30-59 ml/min: Plan: baseline creatinine 1.7-1.9 as OP in 2022 > follows w/ Dr Agee (3) Stroke: Plan: per primary service and neuro (4) Bedbound: Plan: -for about 18 months now for clinically unclear reasons; exceptional deconditioning; curious if neurology may have insight/recommend further w/u if/once acute stroke issue stabilized Admission and Anticipated Discharge Date Admission Date: May 12, 2023 Subjective Patient seen and examined at bedside. No acute distress Follows simple commands B/L 1+ Edema Review of Systems Review of Systems: All systems reviewed & are unremarkable except as noted in HPI & below Results & Data Vital Signs (Past 12 Hours) Vital Signs Pulse Resp BP Pulse Ox O2 Del Method FiO2 05/20/23 07:30 Mechanical Vent 50 05/20/23 09:00 81 21 123/76 93 CPAP 45 05/20/23 08:23 83 16 93 45 05/20/23 08:08 82 23 93 50 05/20/23 08:00 88 22 136/87 91 Mechanical Vent 50 05/20/23 07:00 84 22 132/82 94 Mechanical Vent 50 05/20/23 06:00 81 22 94 05/20/23 06:00 137/86 05/20/23 05:00 71 22 95 05/20/23 05:00 132/77 05/20/23 04:01 77 22 94 05/20/23 04:01 132/81 05/20/23 04:00 81 22 93 05/20/23 03:00 78 22 94 05/20/23 03:00 150/88 H 05/20/23 02:28 81 23 95 05/20/23 02:28 139/96 05/20/23 02:00 84 22 95 05/20/23 01:00 84 22 94 05/20/23 01:00 159/91 H 05/20/23 00:00 83 22 93 05/20/23 00:00 150/92 H 05/19/23 23:00 76 22 95 05/19/23 23:00 145/92 H 05/20/23 00:03 81 05/20/23 03:55 79 23 93 50 Laboratory Results 05/20/23 04:25 05/20/23 04:25
[2023-05-21] MEDS: TUBE FEEDING WATER FLUSH NG SCH ×5 (02:30→18:26)
[2023-05-21 03:19] LABS: iSTAT Allen Test Pass; iSTAT Art Bld Gas pCO2 Correct 44 mmHg (35-46); iSTAT Art Bld Gas pH Corrected 7.444 (7.35-7.45); iSTAT Arterial Blood Gas HCO3 30 meg/L (19-24); iSTAT Arterial Blood Gas pCO2 44 mmHg (35-46); iSTAT Arterial Blood Gas pH 7.45 (7.35-7.45); iSTAT Arterial Blood Gas pO2 64 mmHg (80-95); iSTAT Arterial Blood Gas pO2 C 65; iSTAT Carbon Dioxide 32 mmol/L (24-31); iSTAT FiO2 45 %; iSTAT Hematocrit 33 % (42-52); iSTAT Hemoglobin 11.2 g/dl (14.0-18.0); iSTAT Potassium 3.6 mmol/L (3.3-5.0); iSTAT Site R Radial; iSTAT Sodium 138 mmol/L (135-144)
[2023-05-21 04:28] LABS: Hematocrit (blood only) 34.9 % (42.0-52.0); Hemoglobin 11.3 g/dl (14.0-18.0); Mean Corpuscular Hemoglobin 30.9 pg (25.0-34.0); Mean Corpuscular Hgb Conc 32.4 g/dL (32.0-36.0); Mean Corpuscular Volume 95.4 fL (80.0-100.0); Mean Platelet Volume 11.2 fL (9.4-12.4); Platelet Count 275 K/uL (130-400); RDW Coefficient of Variation 16.1 % (11.5-14.5); RDW Standard Deviation 57.3 fL (36.4-46.3); Red Blood Count 3.66 M/uL (4.70-6.10); White Blood Count 7.57 K/ul (4.8-10.8)
[2023-05-21 04:45] LABS: BUN Creatinine Ratio 36.3 (10-20); Calcium 9.5 mg/dl (8.6-10.3); Creatinine Clr Calc Pharmacy 66.3 ml/min; Phosphorus 2.5 mg/dl (2.5-4.9); Potassium 3.7 mmol/L (3.5-5.1)
[2023-05-21] MEDS: HEPARIN SODIUM/DEXTROSE 25,000 UNITS/500 ML BAG IV SCH ×2 (05:08→16:10)
[2023-05-21 05:28] LABS: Partial Thromboplastin Ratio 2.1
[2023-05-21 05:29] LABS: Basophils # (auto) 0.04 K/uL (0.00-0.20); Basophils % (auto) 0.5 %; Eosinophils # (auto) 0.28 K/uL (0.00-0.50); Eosinophils % (auto) 3.7 %; Immature Granulocytes # (auto) 0.54 K/uL (0.01-0.20); Immature Granulocytes % (auto) 7.1 %; Lymphocytes # (auto) 1.25 K/uL (1.20-3.40); Lymphocytes % (auto) 16.5 %; Monocytes # (auto) 0.69 K/uL (0.11-0.59); Monocytes % (auto) 9.1 %; Neutrophils # (auto) 4.77 K/uL (1.40-6.50); Neutrophils % (auto) 63.1 %; Partial Thromboplastin Time 59.4 Seconds (21.0-31.0); RBC Morphology Unremarkable
[2023-05-21] MEDS: FAMOTIDINE 20 MG in SYRINGE 3 ML IV SCH (07:48)
[2023-05-21] MEDS: CEFEPIME 2,000 MG in SYRINGE 0 ML IV SCH ×2 (07:48→21:03)
[2023-05-21] MEDS: carvediloL 25 MG TAB PO SCH ×2 (07:49→16:09)
[2023-05-21] MEDS: ICU Protocol for HYPERglycemia SCH ×2 (07:49→12:02)
[2023-05-21] MEDS: NOVASOURCE RENAL 2.0 CAL 1000ML BAG NG SCH (08:29)
[2023-05-21] MEDS: allopurinoL 300 MG TAB PO SCH (08:30)
[2023-05-21] MEDS: FERROUS SULFATE 325 MG TAB PO SCH (08:30)
[2023-05-21] MEDS: predniSONE 10 MG TABLET PO SCH (08:30)
[2023-05-21] MEDS: THIAMINE HCL 100 MG TAB NG SCH (08:30)
[2023-05-21] MEDS: FOLIC ACID 1 MG TAB PO SCH (08:30)
[2023-05-21] MEDS: ATORVASTATIN 40 MG TAB PO SCH (08:30)
[2023-05-21 14:56] LABS: iSTAT Allen Test Pass; iSTAT Art Bld Gas pCO2 Correct 44 mmHg (35-46); iSTAT Art Bld Gas pH Corrected 7.434 (7.35-7.45); iSTAT Arterial Blood Gas HCO3 29 meg/L (19-24); iSTAT Arterial Blood Gas pCO2 44 mmHg (35-46); iSTAT Arterial Blood Gas pH 7.44 (7.35-7.45); iSTAT Arterial Blood Gas pO2 134 mmHg (80-95); iSTAT Arterial Blood Gas pO2 C 136; iSTAT Carbon Dioxide 31 mmol/L (24-31); iSTAT FiO2 100 %; iSTAT Hematocrit 34 % (42-52); iSTAT Hemoglobin 11.6 g/dl (14.0-18.0); iSTAT Site L Radial; iSTAT Sodium 136 mmol/L (135-144)
--- NOTE | 2023-05-21 14:58 | XRay Report ---
XR chest 1V portable CLINICAL HISTORY: hypoxia TECHNIQUE: Single frontal radiograph of the chest was obtained. Comparison: Comparison is made to chest radiograph 05/20/2023 FINDINGS: Exam is limited by underpenetration. Cardiomegaly is noted. Lungs are underinflated but clear. No claudy dence of pleural effusion or pneumothorax. IMPRESSION: Stable cardiomegaly. No acute abnormalities to suggest pneumonia. ACT 112: Negative or not required by law. Electronically signed by: Taz Wang M.D. 05/21/2023 2:56 PM
--- NOTE | 2023-05-21 16:49 | Critical Care Progress Note ---
Date of Service May 21, 2023 Assessment & Plan (1) CKD (chronic kidney disease) stage 3, GFR 30-59 ml/min: (2) Stroke: (3) Slurring of speech: (4) Hypoxia: (5) Epigastric abdominal pain: (6) Eosinophilia: (7) DVT (deep venous thrombosis): Plan Reason Critically Ill: 57 YOM admitted for stroke like symptoms currently with worsening of aphasia, left sided weakness and tachypnea on BiPAP with concern for respiratory failure. 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 -TSH, sodium, calcium, glucose within normal limit on 05/15/2023 -Follow-up autoimmune work-up -ESR and CRP are elevated for the patient which is nonspecific 2D echo 05/12/2023: EF 60-65%, moderate concentric LVH, RV systolic function normal Neurology on board Cardiac -HTN, HLD - High Dose statin therapy - 40mg Atorvastatin Respiratory -Acute on Chronic Respiratory failure, Obesity Hypoventilation syndrome -- Trach dependent respiratory failure Trach size 8 XLT proximal placed by Dr. Dubon 05/17/2023 -serial CXR'S GI -Morbid Obesity - no acute needs RENAL/LYTES - CHERYL on CKD --> improving -Monitor BUNs/creatinine -Avoid nephrotoxic medication - Nephrology on board -CHERYL-Stage II -diuresis with Lasix 20mg - No acute need - Starks to gravity ENDO - No acute needs - HGB A1C 5.5 range -Continue with ICU hypoglycemia protocol HEME -Hx of Eosinophilia on chronic prednisone, HX of DVT History of eosinophil count as high as 3400 10/17/2022 - Follows with Allergy- on steroid taper -On prednisone taper since 04/28/2023. Was started on 40 mg and was supposed to decrease by 10 mg every week. -- History of DVT On chronic warfarin follow daily INR to goal 2-2.5 ID - -- Pseudomonas pansensitive in the urine Started on Rocephin 05/15/2023 --> changed to cefepime 05/17/2023, will continue for 10 days -Depression -will be seen by Psychiatry -start anti-depressant --Prophylaxis VTE: Heparin drip GI: Pepcid Lines: Peripheral Diet: Tube feeds Plan: In/out: 2301mL/ urine output 1725ml Chest x-ray from today shows trach 7 cm above the onesimo. Currently has size 8 XLT-P. Patient getting good volumes. He might need Brovana given his thick neck Try pressure support today. If he does well today then tomorrow we can try trach collar Continue with vent nightly Potassium being replaced Continue diuresis Overall prognosis is poor Patient will need long-term placement and PEG tube placement in future Discussion on rounds as to who patient's POA will be since his wants divorce, will speak have rn social services speak to father about taking POA I have personally spent 41 minutes of critical care time in the direct management of this patient. This is a life/limb threatening event. This includes time spent evaluating patient, direct bedside care, chart review, placing orders, interpretation of diagnostic studies, discussion with consultants, patient, and family members, as well as other required patient management activities. This time is exclusive of all separately billable procedures, and teaching time and separate from and in addition to any other critical care service time. Please note the above document was generated using voice recognition software. It may contain grammatical, syntax or spelling errors. Admission and Anticipated Discharge Date Admission Date: May 12, 2023 Subjective Patient seen and examined at bedside with nursing personnel and BAUDILIO, Alfonso Gonzalez Did have an episode of hypoxia earlier today although repeat chest x-ray unremarkable at this time and patient's FiO2 being weaned from 100%, no other acute changes Review of Systems Review of Systems: All systems reviewed & are unremarkable except as noted in Subjective Physical Exam Constitutional: Remains on mechanical ventilation with tracheostomy. Eyes: PERRL, conjunctivae normal, anicteric sclerae ENMT: Neck Short thick tracheostomy in place. Neck: Tracheostomy midline Respiratory: Diminished at the bases bilaterally. Chest x-ray does show poor inspiration with diminished aeration to the bases. No new wheezing or crackles. Cardiovascular: Rate/Rhythm: regular rate and regular rhythm Gastrointestinal (Abdomen): normal bowel sounds, soft, nontender, no hepatosplenomegaly Musculoskeletal: no cyanosis or clubbing, extremities motor strength 5/5 Skin: no rashes, warm and dry Neurologic: Awake and alert, diminished motor strength to bilateral lower extremities 2-3/5 Babinski negative. Patient with locked-in syndrome recent MRI revealing pontine stroke Psychiatric: Patient does admit to depression due to his current condition. He will be seen by psychiatry. Results & Data Results & Data Vital Signs (Past 12 Hours) Vital Signs Temp Pulse Resp BP Pulse Ox O2 Del Method FiO2 05/21/23 15:01 77 22 151/88 H 98 Mechanical Vent 80 05/21/23 14:00 84 23 150/83 H 87 L CPAP 45 05/21/23 15:35 37.2 C 05/21/23 13:01 75 18 144/76 H 95 CPAP 45 05/21/23 12:00 77 17 147/79 H 94 CPAP 45 05/21/23 12:00 36.8 C 05/21/23 11:15 75 19 90 45 05/21/23 11:00 73 21 145/81 H 91 CPAP 45 05/21/23 10:00 72 15 144/78 H 95 CPAP 45 05/21/23 09:01 75 18 135/73 96 CPAP 45 05/21/23 08:01 83 24 154/84 H 94 CPAP 45 05/21/23 08:00 37.1 C 05/21/23 07:43 84 18 94 45 05/21/23 07:01 82 22 157/91 H 94 CPAP 45 05/21/23 07:00 CPAP 45 Critical Care Results & Data Vital Signs (Past 12 Hours) Vital Signs Temp Pulse Resp BP Pulse Ox O2 Del Method FiO2 05/21/23 15:01 77 22 151/88 H 98 Mechanical Vent 80 05/21/23 14:00 84 23 150/83 H 87 L CPAP 45 05/21/23 15:35 37.2 C 05/21/23 13:01 75 18 144/76 H 95 CPAP 45 05/21/23 12:00 77 17 147/79 H 94 CPAP 45 05/21/23 12:00 36.8 C 05/21/23 11:15 75 19 90 45 05/21/23 11:00 73 21 145/81 H 91 CPAP 45 05/21/23 10:00 72 15 144/78 H 95 CPAP 45 05/21/23 09:01 75 18 135/73 96 CPAP 45 05/21/23 08:01 83 24 154/84 H 94 CPAP 45 05/21/23 08:00 37.1 C 05/21/23 07:43 84 18 94 45 05/21/23 07:01 82 22 157/91 H 94 CPAP 45 05/21/23 07:00 CPAP 45 Lab & Micro Results (Past 24 Hours) RBC 3.66 M/uL (4.70-6.10) L 05/21/23 WBC 7.57 K/ul (4.8-10.8) 05/21/23 Hgb 11.3 g/dl (14.0-18.0) L 05/21/23 Hct 34.9 % (42.0-52.0) L 05/21/23 MCV 95.4 fL (80.0-100.0) 05/21/23 MCH 30.9 pg (25.0-34.0) 05/21/23 MCHC 32.4 g/dL (32.0-36.0) 05/21/23 RDW Standard Deviation 57.3 fL (36.4-46.3) H 05/21/23 RDW Coefficient of Variation 16.1 % (11.5-14.5) H 05/21/23 Plt Count 275 K/uL (130-400) 05/21/23 MPV 11.2 fL (9.4-12.4) 05/21/23 Neutrophils (%) (Auto) 63.1 % 05/21/23 Lymphocytes (%) (Auto) 16.5 % 05/21/23 Monocytes # (Auto) 0.69 K/uL (0.11-0.59) H 05/21/23 Eosinophils # (Auto) 0.28 K/uL (0.00-0.50) 05/21/23 Immature Granulocyte % (Auto) 7.1 % 05/21/23 Neutrophils # (Auto) 4.77 K/uL (1.40-6.50) 05/21/23 Lymphocytes # (Auto) 1.25 K/uL (1.20-3.40) 05/21/23 Monocytes # (Auto) 0.69 K/uL (0.11-0.59) H 05/21/23 Eosinophils # (Auto) 0.28 K/uL (0.00-0.50) 05/21/23 Basophils # (Auto) 0.04 K/uL (0.00-0.20) 05/21/23 Immature Granulocyte # (Auto) 0.54 K/uL (0.01-0.20) H 05/21 Red Blood Cell Morphology Unremarkable 05/21/23 Na 138 mmol/L (136-145) 05/21/23 K 3.7 mmol/L (3.5-5.1) 05/21/23 Cl 102 mmol/L (98-107) 05/21/23 CO2 29 mmol/L (21-32) 05/21/23 Anion Gap 7 (3-11) 05/21/23 BUN 82 mg/dl (6-23) H 05/21/23 Creatinine 2.26 mg/dl (0.6-1.4) H 05/21/23 Estimated GFR ( Amer) 36.0 ml/min 05/21/23 Estimated GFR (Non-Af Amer) 31.0 ml/min 05/21/23 BUN/Creatinine Ratio 36.3 (10-20) H 05/21/23 Glu 116 mg/dl (70-99(Fasting)) H 05/21/23 Ca 9.5 mg/dl (8.6-10.3) 05/21/23 Phosphorus Level 2.5 mg/dl (2.5-4.9) 05/21/23 Mg 2.0 mg/dl (1.7-2.4) 05/21/23 04:08 Calcium Level 9.5 mg/dl (8.6-10.3) 05/21/23 04:08 Galen Test Pass 05/21/23 14:39 Microbiology 05/16/23 08:16 Aerobic Blood Culture - Final Blood No growth in Aerobic bottle after 5 days. Anaerobic Blood Culture - Final No growth in Anaerobic bottle after 5 days. 05/16/23 08:01 Aerobic Blood Culture - Final Blood No growth in Aerobic bottle after 5 days. Anaerobic Blood Culture - Final Diagnostic Findings (Past 24 Hours) Chest X-Ray 05/21/23 14:10 XR chest 1V portable CLINICAL HISTORY: hypoxia TECHNIQUE: Single frontal radiograph of the chest was obtained. Comparison: Comparison is made to chest radiograph 05/20/2023 FINDINGS: Exam is limited by underpenetration. Cardiomegaly is noted. Lungs are underinflated but clear. No evidence of pleural effusion or pneumothorax. IMPRESSION: Stable cardiomegaly. No acute abnormalities to suggest pneumonia. ACT 112: Negative or not required by law. Electronically signed by: Taz Wang M.D. 05/21/2023 2:56 PM I & O Totals 24 Hours 05/20/23 05/21/23 05/22/23 06:59 06:59 06:59 Intake Total 1600.867 / 1463.385 6382.833 / 3589.095 3445.183 / 1149.183 Output Total 1385 / 1385 1950 / 1950 600 / 600 Balance 215.867 / 215.867 -248.167 / -248.167 549.183 / 549.183 Cumulative 05/11/23 22:14 thru 05/21/23 16:10 Intake Total 60746.647 Output Total 79273 Balance 61592.647 RT Ventilator Mngmt (Last Documented) Ventilator Ordered Settings Ventilator Support Mode CPAP 05/21/23 11:15 Respiratory Rate 22 05/21/23 15:01 Ventilator Tidal Volume 500 05/21/23 03:04 Setting Minute Ventilation 9.6 05/21/23 11:15 Ventilator Positive Pressure 14 05/21/23 11:15 Support Setting Positive End Expiratory 6 05/21/23 11:15 Pressure Fraction of Inspired Oxygen 80 05/21/23 15:01 Machine Comment pt felt SOB, placed on full vent 05/20/23 19 :18 support for overnight Ventilator - PT Measurements Respiratory Rate 22 Exhaled Tidal Volume 478 Minute Ventilation 9.6 Peak Inspiratory Airway 22 Pressure Plateau Pressure 19.8 Respiratory Cycle Inspiratory: 1:1.7 Expiratory Ratio Inspiratory Phase Time 0.84 End-Tidal CO2 32 Static Lung Compliance 36.09 Dynamic Lung Compliance 29.88 Normal Static Lung Compliance 47.00 Patient Measurements Comment trach care completed Coding Level of Care Code 09888 CRITICAL CARE 1ST 30-74M Diagnoses CKD (chronic kidney disease) stage 3, GFR 30-59 ml/min N18.30 Stroke I63.9 Slurring of speech R47.81 Hypoxia R09.02 Epigastric abdominal pain R10.13 Eosinophilia D72.19 DVT (deep venous thrombosis) I82.409
--- NOTE | 2023-05-21 19:50 | Psychiatric Progress Note ---
Date of Service May 21, 2023 Impression / Recommendations Impression 57 y/o man with a preadmission history of reported very passive, bedbound life now hospitalized post-stroke with very limited communication ability. Attempts by my team to assess possibility of need for psychiatric treatment have been hampered by that limited communication ability, but in the past 2 days he's been more able to provide what appear to be reliable responses to yes/no questions. Yesterday he told the psychiatric liaison nurse he was not depressed and today told a different one that he is depressed. He indicated to me that he is feeling depressed and was interested in treatment. In terms of diagnosis, "depression" alone would typically be unacceptably vague and nonspecific within my specialty. In this instance, however, I'm unable to obtain sufficient information to tell whether he has a major depressive episode (or a history of previous episodes, though he indicates ""no" to that with me), an adjustment disorder with depressed mood (entirely plausible under the circumstances but by no means certain), or an organic mood disorder resulting from his recent vascular brain injury. over the fci it would helpful to try to sort this out. In terms of immediate treatment, each of those would be approached the same way so it seems appropriate to proceed with treatment. Medications used should present minimal side effect risk since he's currently unable spontaneously to report side effects or detail about them. (1) Depression: Plan I discussed a trial of escitalopram including risks of GI upset or headaches, expected need to titrate to an appropriate dose, and delay to evident benefit in the range of 1-2 months. Pt indicated agreement with a trial of this medication. After speaking with the hospitalist, I've ordered escitalopram solution 5 mg per NGT daily. This will almost certainly need to be titrated to 20 mg/day given his size. Suicide Risk Level Suicide Risk Level: Low (q15 min observation checks) Suicide Risk Level Comments: repeatedly denies suicidal thoughts (and would currently be incapable of acting on any that he declined to endorse) Interval History Identifying Information 57 yo man with history of HTN, obesity, RUTH, anemia, obesity hypoventilation syndrome, HLD, CHF, gout, RA, chronic back pain, tobacco use, CKD, hx DVT on coumadin, wheelchair-bound admitted medically for slurred speech and concern for stroke. Psychiatry consulted for "psychiatric issues". Chief Complaint Pt unable to communicate beyond yes/no indicators Subjective Subjective Patient was seen & assessed and interval progress reviewed in a multidisciplinary team meeting with psychiatric liaison nursing and social work. For details, see the "Impression" section. Physical Exam Psychiatric Pt lies in bed with eyes closed on approach. He doesn't respond to my calling his name but when I touch his arm opens his eyes and finds me at his bedside. After introducing myself and my role, I established his ability to provide consistent responses of "yes" (upward gaze with very slight head nod), "no" ([id number] head shake), and "maybe, I don't know, or I don't understand" (slight shoulder shrug and right hand squeeze). He was able to repeat these consistently. He appears to be oriented to person and being in a hospital. He indicated "yes" to feeling depressed, sad, negative and "no" to feeling hopeless or suicidal. Vital Signs (Past 24 Hours) Last Vital Signs Temp 37.2 C 05/21/23 15:35 Pulse 71 05/21/23 17:00 Resp 22 05/21/23 17:00 BP 138/86 05/21/23 17:00 Pulse Ox 95 05/21/23 17:00 O2 Del Method Mechanical Vent 05/21/23 17:00 O2 Flow Rate 4 05/15/23 16:56 FiO2 60 05/21/23 17:00 Results & Data ([facility]) Laboratory Results Laboratory Results - last 24 hr 05/16/23 05/20/23 05/21/23 04:38 20:05 03:05 WBC RBC Hgb POC Hgb 11.2 L Hct POC Hct 33 L MCV MCH MCHC RDW Std Deviation RDW Coeff of Cheryl Plt Count MPV Immature Gran % (Auto) Neut % (Auto) Lymph % (Auto) Mchenry % (Auto) Eos % (Auto) Baso % (Auto) Neut # (Auto) Lymph # (Auto) Mchenry # (Auto) Eos # (Auto) Baso # (Auto) Immature Gran # (Auto) RBC Morphology APTT PTT Ratio Sample Site R Radial POC pH 7.45 POC pCO2 44 POC pO2 64 L POC HCO3 30 H POC Total CO2 32 H POC Base Excess 6.0 H ABG pH (Temp Correct) 7.444 ABG pCO2 (Temp Corrct 44 POC ABG pO2 at Pt Temp 65 POC ABG O2 Sat 93.0 Galen Test Pass O2 Delivery Device Ventilator POC O2 Rate 22 Minute Ventilation POC FiO2 45 Tidal Volume 500 PEEP 6 POC Sodium 138 Sodium POC Potassium 3.6 Potassium Chloride Carbon Dioxide Anion Gap BUN Creatinine Est Cr Clr Drug Dosing Est GFR ( Amer) Est GFR (Non-Af Amer) BUN/Creatinine Ratio Glucose POC Glucose 146 H Calcium Phosphorus Magnesium Histone Ab, Qual <1.0 05/21/23 05/21/23 05/21/23 04:08 04:08 04:08 WBC 7.57 RBC 3.66 L Hgb 11.3 L POC Hgb Hct 34.9 L POC Hct MCV 95.4 MCH 30.9 MCHC 32.4 RDW Std Deviation 57.3 H RDW Coeff of Cheryl 16.1 H Plt Count 275 MPV 11.2 Immature Gran % (Auto) 7.1 Neut % (Auto) 63.1 Lymph % (Auto) 16.5 Mchenry % (Auto) 9.1 Eos % (Auto) 3.7 Baso % (Auto) 0.5 Neut # (Auto) 4.77 Lymph # (Auto) 1.25 Mchenry # (Auto) 0.69 H Eos # (Auto) 0.28 Baso # (Auto) 0.04 Immature Gran # (Auto) 0.54 H RBC Morphology Unremarkable APTT 59.4 H* PTT Ratio 2.1 Sample Site POC pH POC pCO2 POC pO2 POC HCO3 POC Total CO2 POC Base Excess ABG pH (Temp Correct) ABG pCO2 (Temp Corrct POC ABG pO2 at Pt Temp POC ABG O2 Sat Galen Test O2 Delivery Device POC O2 Rate Minute Ventilation POC FiO2 Tidal Volume PEEP POC Sodium Sodium 138 POC Potassium Potassium 3.7 Chloride 102 Carbon Dioxide 29 Anion Gap 7 BUN 82 H Creatinine 2.26 H Est Cr Clr Drug Dosing 66.3 Est GFR ( Amer) 36.0 Est GFR (Non-Af Amer) 31.0 BUN/Creatinine Ratio 36.3 H Glucose 116 H POC Glucose Calcium 9.5 Phosphorus 2.5 Magnesium 2.0 Histone Ab, Qual 05/21/23 05/21/23 05/21/23 08:05 12:01 14:39 WBC RBC Hgb POC Hgb 11.6 L Hct POC Hct 34 L MCV MCH MCHC RDW Std Deviation RDW Coeff of Cheryl Plt Count MPV Immature Gran % (Auto) Neut % (Auto) Lymph % (Auto) Mchenry % (Auto) Eos % (Auto) Baso % (Auto) Neut # (Auto) Lymph # (Auto) Mchenry # (Auto) Eos # (Auto) Baso # (Auto) Immature Gran # (Auto) RBC Morphology APTT PTT Ratio Sample Site L Radial POC pH 7.44 POC pCO2 44 POC pO2 134 H POC HCO3 29 H POC Total CO2 31 POC Base Excess 5.0 H ABG pH (Temp Correct) 7.434 ABG pCO2 (Temp Corrct 44 POC ABG pO2 at Pt Temp 136 POC ABG O2 Sat 99.0 H Galen Test Pass O2 Delivery Device Ventilator POC O2 Rate 22 Minute Ventilation 11.0 POC FiO2 100 Tidal Volume 500 PEEP 8 POC Sodium 136 Sodium POC Potassium 4.0 Potassium Chloride Carbon Dioxide Anion Gap BUN Creatinine Est Cr Clr Drug Dosing Est GFR ( Amer) Est GFR (Non-Af Amer) BUN/Creatinine Ratio Glucose POC Glucose 120 H 173 H Calcium Phosphorus Magnesium Histone Ab, Qual 05/21/23 16:27 WBC RBC Hgb POC Hgb Hct POC Hct MCV MCH MCHC RDW Std Deviation RDW Coeff of Cheryl Plt Count MPV Immature Gran % (Auto) Neut % (Auto) Lymph % (Auto) Mchenry % (Auto) Eos % (Auto) Baso % (Auto) Neut # (Auto) Lymph # (Auto) Mchenry # (Auto) Eos # (Auto) Baso # (Auto) Immature Gran # (Auto) RBC Morphology APTT PTT Ratio Sample Site POC pH POC pCO2 POC pO2 POC HCO3 POC Total CO2 POC Base Excess ABG pH (Temp Correct) ABG pCO2 (Temp Corrct POC ABG pO2 at Pt Temp POC ABG O2 Sat Galen Test O2 Delivery Device POC O2 Rate Minute Ventilation POC FiO2 Tidal Volume PEEP POC Sodium Sodium POC Potassium Potassium Chloride Carbon Dioxide Anion Gap BUN Creatinine Est Cr Clr Drug Dosing Est GFR ( Amer) Est GFR (Non-Af Amer) BUN/Creatinine Ratio Glucose POC Glucose 139 H Calcium Phosphorus Magnesium Histone Ab, Qual Current Inpatient Medications Current Inpatient Medications: Current Inpatient Medications Albuterol (Albuterol 0.083% Nebu Soln 3 Ml Vial) 2.5 mg NEB Q6R PRN; Protocol PRN Reason: Shortness Of Breath Or Wheezing Stop: 06/17/23 21:43 Allopurinol (Allopurinol 300 Mg Tab) 300 mg PO DAILY STACY Stop: 06/11/23 08:59 Last Admin: 05/21/23 08:30 Dose: 300 mg Atorvastatin Calcium (Atorvastatin 40 Mg Tab) 40 mg PO QAM STACY Stop: 06/12/23 08:59 Last Admin: 05/21/23 08:30 Dose: 40 mg Carvedilol (Carvedilol 25 Mg Tab) 25 mg PO BIDM STACY Stop: 06/18/23 07:59 Last Admin: 05/21/23 16:09 Dose: 25 mg Dextrose (Dextrose 50% 50 Ml Syringe) 25 - 50 ml IV UD PRN; Protocol PRN Reason: Hypoglycemia Protocol Stop: 06/17/23 10:59 Enteral Nutritional Formula (Novasource Renal 2.0 Luke 1000ml Bag) 1,000 ml NG UD STACY; Protocol Stop: 06/15/23 10:29 Last Admin: 05/21/23 08:29 Dose: 1,000 ml Ferrous Sulfate (Ferrous Sulfate 325 Mg Tab) 325 mg PO DAILY STACY Stop: 06/11/23 08:59 Last Admin: 05/21/23 08:30 Dose: 325 mg Folic Acid (Folic Acid 1 Mg Tab) 1 mg PO DAILY STACY Stop: 06/16/23 08:59 Last Admin: 05/21/23 08:30 Dose: 1 mg Glucagon (Glucagon For Inj 1 Mg Vial) 1 mg IM UD PRN; Protocol PRN Reason: Hypoglycemia Protocol Stop: 06/17/23 10:59 Glucose (Glucose 40% Gel 15 Gm Tube) 15 - 30 gm PO UD PRN; Protocol PRN Reason: Hypoglycemia Protocol Stop: 06/17/23 10:59 Glucose (Glucose 10 Tab/Tube) 4 - 8 tab PO UD PRN; Protocol PRN Reason: Hypoglycemia Protocol Stop: 06/17/23 10:59 Heparin Sodium (Beef Lung) (Heparin 10 Unit/Ml 5 Ml Flush) 5 ml FLUSH PRN PRN PRN Reason: Flush Stop: 06/18/23 11:05 Last Admin: 05/19/23 18:21 Dose: 5 ml Famotidine 20 mg/ Syringe 5 mls @ 2.5 mls/min IV DAILY STACY Stop: 06/13/23 08:59 Last Admin: 05/21/23 07:48 Dose: 2.5 mls/min Heparin Sodium/Dextrose (Heparin Sodium/Dextrose) 25,000 units in 500 mls @ 43 mls/hr IV .[id number] [facility]; Protocol Stop: 06/14/23 08:49 Last Titration: 05/21/23 18:59 Dose: 2,150 units/hr, 43 mls/hr Cefepime HCl 2,000 mg/ Syringe 20 mls @ 5 mls/min IV Q12H [facility]; Protocol Stop: 05/27/23 07:59 Last Admin: 05/21/23 07:48 Dose: 5 mls/min Metoprolol Tartrate (Metoprolol Tartrate 1 Mg/Ml Vial) 5 mg IV Q6 PRN PRN Reason: SBP>150, HR>110 Stop: 06/18/23 11:59 Miconazole Nitrate (Miconazole Nitrate Powder 85 Gm) 1 appln EXT PRN PRN PRN Reason: Affected Skin Folds Stop: 06/11/23 15:10 Last Admin: 05/21/23 12:05 Dose: 1 appln Miscellaneous (Carbohydrates For Hypoglycemia ) 15 - 30 gm PO UD PRN PRN Reason: Hypoglycemia Treatment Stop: 06/17/23 10:59 Nitroglycerin (Nitroglycerin Sl 0.4 Mg/Tab Tab) 0.4 mg SL Q5M PRN PRN Reason: Chest Pain Stop: 06/11/23 04:46 Prednisone (Prednisone 10 Mg Tablet) 10 mg PO DAILY [facility]; Taper Stop: 05/25/23 08:59 Last Admin: 05/21/23 08:30 Dose: 10 mg Sterile Water (Tube Feeding Water Flush) 30 ml NG Q4H [facility] Stop: 06/15/23 10:29 Last Admin: 05/21/23 18:26 Dose: 30 ml Thiamine HCl (Thiamine Hcl 100 Mg Tab) 100 mg NG DAILY [facility] Stop: 06/17/23 08:59 Last Admin: 05/21/23 08:30 Dose: 100 mg Torsemide (Torsemide 20 Mg Tab) 20 mg PO QAM [facility] Stop: 06/11/23 08:59 Last Admin: 05/12/23 09:16 Dose: 20 mg Verapamil HCl (Verapamil Hcl 240 Mg Tabcr) 240 mg PO QAM [facility] Stop: 06/11/23 08:59 Last Admin: 05/12/23 09:17 Dose: 240 mg Warfarin Sodium (Warfarin Sod 4 Mg Tab) 4 mg PO DAILY@1600 [facility] Stop: 06/11/23 15:59 Last Admin: 05/14/23 15:49 Dose: Not Given
[2023-05-22] MEDS: TUBE FEEDING WATER FLUSH NG SCH ×7 (00:14→22:32)
[2023-05-22] MEDS: HEPARIN SODIUM/DEXTROSE 25,000 UNITS/500 ML BAG IV SCH ×2 (03:52→15:55)
[2023-05-22 06:00] LABS: Hematocrit (blood only) 38.5 % (42.0-52.0); Mean Corpuscular Hemoglobin 30.2 pg (25.0-34.0); Mean Corpuscular Hgb Conc 31.2 g/dL (32.0-36.0); Mean Corpuscular Volume 96.7 fL (80.0-100.0); Mean Platelet Volume 11.2 fL (9.4-12.4); Nucleated RBC # (auto) 0.02 K/uL (0.00-0.12); Nucleated RBC % (auto) 0.2 %; Platelet Count 297 K/uL (130-400); RDW Standard Deviation 56.7 fL (36.4-46.3); Red Blood Count 3.98 M/uL (4.70-6.10); White Blood Count 8.74 K/ul (4.8-10.8)
[2023-05-22 06:05] LABS: Calcium 9.6 mg/dl (8.6-10.3); Creatinine Clr Calc Pharmacy 76.1 ml/min; Est GFR (African American) 41.7 ml/min; Phosphorus 2.5 mg/dl (2.5-4.9); Potassium 3.8 mmol/L (3.5-5.1)
[2023-05-22 06:15] LABS: Partial Thromboplastin Ratio 2.1
[2023-05-22 06:16] LABS: Partial Thromboplastin Time 59.1 Seconds (21.0-31.0)
[2023-05-22 06:22] LABS: Basophils # (auto) 0.06 K/uL (0.00-0.20); Basophils % (auto) 0.7 %; Eosinophils # (auto) 0.35 K/uL (0.00-0.50); Immature Granulocytes # (auto) 0.82 K/uL (0.01-0.20); Immature Granulocytes % (auto) 9.4 %; Lymphocytes # (auto) 1.22 K/uL (1.20-3.40); Monocytes # (auto) 0.73 K/uL (0.11-0.59); Monocytes % (auto) 8.4 %; Neutrophils # (auto) 5.56 K/uL (1.40-6.50); Neutrophils % (auto) 63.5 %
[2023-05-22 06:25] LABS: iSTAT Allen Test Pass; iSTAT Art Bld Gas pCO2 Correct 40 mmHg (35-46); iSTAT Art Bld Gas pH Corrected 7.487 (7.35-7.45); iSTAT Arterial Blood Gas HCO3 31 meg/L (19-24); iSTAT Arterial Blood Gas pCO2 40 mmHg (35-46); iSTAT Arterial Blood Gas pH 7.49 (7.35-7.45); iSTAT Arterial Blood Gas pO2 110 mmHg (80-95); iSTAT Arterial Blood Gas pO2 C 110; iSTAT Carbon Dioxide 32 mmol/L (24-31); iSTAT FiO2 60 %; iSTAT Hematocrit 36 % (42-52); iSTAT Hemoglobin 12.2 g/dl (14.0-18.0); iSTAT Potassium 3.6 mmol/L (3.3-5.0); iSTAT Site L Radial; iSTAT Sodium 136 mmol/L (135-144)
[2023-05-22] MEDS: NOVASOURCE RENAL 2.0 CAL 1000ML BAG NG SCH (08:08)
[2023-05-22] MEDS: carvediloL 25 MG TAB PO SCH ×2 (08:09→17:02)
[2023-05-22] MEDS: CEFEPIME 2,000 MG in SYRINGE 0 ML IV SCH ×2 (08:10→19:29)
[2023-05-22] MEDS: FAMOTIDINE 20 MG in SYRINGE 3 ML IV SCH (08:10)
[2023-05-22] MEDS: ATORVASTATIN 40 MG TAB PO SCH (08:25)
[2023-05-22] MEDS: FOLIC ACID 1 MG TAB PO SCH (08:25)
[2023-05-22] MEDS: FERROUS SULFATE 325 MG TAB PO SCH (08:25)
[2023-05-22] MEDS: allopurinoL 300 MG TAB PO SCH (08:25)
[2023-05-22] MEDS: THIAMINE HCL 100 MG TAB NG SCH (08:26)
[2023-05-22] MEDS: predniSONE 10 MG TABLET PO SCH (08:26)
[2023-05-22] MEDS ORDERED: FUROSEMIDE 40 MG/4 ML VIAL IV ONE (10:00)
--- NOTE | 2023-05-22 10:54 | Critical Care Progress Note ---
Date of Service May 22, 2023 Assessment & Plan (1) CKD (chronic kidney disease) stage 3, GFR 30-59 ml/min: (2) Stroke: (3) Slurring of speech: (4) Hypoxia: (5) Epigastric abdominal pain: (6) Eosinophilia: (7) DVT (deep venous thrombosis): Plan Reason Critically Ill: 57 YOM admitted for stroke like symptoms currently with worsening of aphasia, left sided weakness and tachypnea on BiPAP with concern for respiratory failure. 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 -TSH, sodium, calcium, glucose within normal limit on 05/15/2023 -Follow-up autoimmune work-up -ESR and CRP are elevated for the patient which is nonspecific 2D echo 05/12/2023: EF 60-65%, moderate concentric LVH, RV systolic function normal Neurology on board Cardiac -HTN, HLD - High Dose statin therapy - 40mg Atorvastatin Respiratory -Acute on Chronic Respiratory failure, Obesity Hypoventilation syndrome -- Trach dependent respiratory failure Trach size 8 XLT proximal placed by Dr. Dubon 05/17/2023 -serial CXR'S -Continue pulmonary hygiene GI -Morbid Obesity - no acute needs RENAL/LYTES - CHERYL on CKD --> improving -Monitor BUNs/creatinine which is improving with creatinine of 2.0 today -Avoid nephrotoxic medications - Nephrology on board -CHERYL-Stage II -diuresis with Lasix 40mg - No acute need - Starks to gravity ENDO - No acute needs - HGB A1C 5.5 range -Continue with ICU hypoglycemia protocol HEME -Hx of Eosinophilia on chronic prednisone, HX of DVT History of eosinophil count as high as 3400 10/17/2022 - Follows with Allergy- on steroid taper -On prednisone taper since 04/28/2023. Was started on 40 mg and was supposed to decrease by 10 mg every week. -- History of DVT On chronic warfarin follow daily INR to goal 2-2.5 ID - -- Pseudomonas pansensitive in the urine Started on Rocephin 05/15/2023 --> changed to cefepime 05/17/2023, will continue for 10 days -Depression - seen by Psychiatry -start anti-depressant --Prophylaxis VTE: Heparin drip GI: Pepcid Lines: Peripheral Diet: Tube feeds Plan: In/out: 2301mL/ urine output 1725ml Chest x-ray from today shows trach 7 cm above the onesimo. Currently has size 8 XLT-P. Patient getting good volumes. He might need Brovana given his thick neck Try pressure support today. If he does well today then tomorrow we can try trach collar Continue with vent nightly Potassium being replaced Continue diuresis Overall prognosis is poor Patient will need long-term placement and PEG tube placement in future Discussion on rounds as to who patient's POA will be since his wants divorce, will speak have social work professor speak to father about taking POA I have personally spent 38 minutes of critical care time in the direct management of this patient today on 05/22/2023. This is a life/limb threatening event. This includes time spent evaluating patient, direct bedside care, chart review, placing orders, interpretation of diagnostic studies, discussion with consultants, patient, and family members, as well as other required patient management activities. This time is exclusive of all separately billable procedures, and teaching time and separate from and in addition to any other critical care service time. Please note the above document was generated using voice recognition software. It may contain grammatical, syntax or spelling errors. Admission and Anticipated Discharge Date Admission Date: May 12, 2023 Subjective No acute or new problems overnight. Patient remains on CPAP this morning and using more ventilatory support at night. Tracheostomy in place with a Shiley XLT #8. Patient seen at bedside with nursing personnel and YUMIKO Gutiérrez Review of Systems Review of Systems: All systems reviewed & are unremarkable except as noted in Subjective Physical Exam Constitutional: WD/WN, vitals as above Very large morbidly obese gentleman. No acute distress Eyes: PERRL, conjunctivae normal, anicteric sclerae ENMT: external ear and nose normal, oropharynx normal Neck: Very short thick neck with tracheostomy site at midline. Respiratory: Diminished breath sounds to bases with poor aeration no new wheezing or rhonchi appreciated. Currently on CPAP mode of ventilation at 12/ with an FiO2 of 40% Cardiovascular: Rate/Rhythm: regular rate and regular rhythm Gastrointestinal (Abdomen): normal bowel sounds, soft, nontender, no hepatosplenomegaly Musculoskeletal: no cyanosis or clubbing, extremities motor strength 5/5 Skin: no rashes, warm and dry Neurologic: Patient is awake and somewhat responsive does understand questioning from nursing personnel, significantly diminished motor strength to bilateral lower extremities 2/5 with a negative Babinski. Patient does have some mild hand grasp right stronger than left. Noted to have "locked-in syndrome" with recent MRI revealing pontine stroke Psychiatric: Orientation: alert Patient depressed in regards to his current medical situation. Therefore he has been seen by psychiatry yesterday. Results & Data Results & Data Vital Signs (Past 12 Hours) Vital Signs Temp Pulse Resp BP Pulse Ox O2 Del Method O2 Flow Rate 05/22/23 10:00 78 17 126/75 94 CPAP 05/22/23 07:00 37.0 C 05/22/23 09:05 82 24 94 05/22/23 09:00 89 28 H 130/81 94 CPAP 05/22/23 08:00 82 22 115/78 94 Mechanical Vent 05/22/23 07:00 90 22 145/86 H 94 Mechanical Vent 05/22/23 07:00 Mechanical Vent 40 05/22/23 06:00 88 22 96 05/22/23 05:00 75 22 95 05/22/23 05:00 124/84 05/22/23 04:00 86 24 93 05/22/23 04:00 144/89 H 05/22/23 02:40 88 29 H 97 05/22/23 03:00 84 24 91 05/22/23 03:00 150/92 H 05/22/23 02:00 83 22 93 05/22/23 02:00 161/90 H 05/22/23 01:00 83 23 94 05/22/23 01:00 167/94 H 05/22/23 00:00 78 24 93 05/22/23 00:00 174/101 H 05/21/23 23:00 81 25 H 93 05/21/23 23:00 164/90 H FiO2 05/22/23 10:00 40 05/22/23 07:00 05/22/23 09:05 40 05/22/23 09:00 40 05/22/23 08:00 40 05/22/23 07:00 40 05/22/23 07:00 05/22/23 06:00 05/22/23 05:00 05/22/23 05:00 05/22/23 04:00 05/22/23 04:00 05/22/23 02:40 40 05/22/23 03:00 05/22/23 03:00 05/22/23 02:00 05/22/23 02:00 05/22/23 01:00 05/22/23 01:00 05/22/23 00:00 05/22/23 00:00 05/21/23 23:00 05/21/23 23:00 Critical Care Results & Data Vital Signs (Past 12 Hours) Vital Signs Temp Pulse Resp BP Pulse Ox O2 Del Method O2 Flow Rate 05/22/23 10:00 78 17 126/75 94 CPAP 05/22/23 07:00 37.0 C 05/22/23 09:05 82 24 94 05/22/23 09:00 89 28 H 130/81 94 CPAP 05/22/23 08:00 82 22 115/78 94 Mechanical Vent 05/22/23 07:00 90 22 145/86 H 94 Mechanical Vent 05/22/23 07:00 Mechanical Vent 40 05/22/23 06:00 88 22 96 05/22/23 05:00 75 22 95 05/22/23 05:00 124/84 05/22/23 04:00 86 24 93 05/22/23 04:00 144/89 H 05/22/23 02:40 88 29 H 97 05/22/23 03:00 84 24 91 05/22/23 03:00 150/92 H 05/22/23 02:00 83 22 93 05/22/23 02:00 161/90 H 05/22/23 01:00 83 23 94 05/22/23 01:00 167/94 H 05/22/23 00:00 78 24 93 05/22/23 00:00 174/101 H FiO2 05/22/23 10:00 40 05/22/23 07:00 05/22/23 09:05 40 05/22/23 09:00 40 05/22/23 08:00 40 05/22/23 07:00 40 05/22/23 07:00 05/22/23 06:00 05/22/23 05:00 05/22/23 05:00 05/22/23 04:00 05/22/23 04:00 05/22/23 02:40 40 05/22/23 03:00 05/22/23 03:00 05/22/23 02:00 05/22/23 02:00 05/22/23 01:00 05/22/23 01:00 05/22/23 00:00 05/22/23 00:00 Lab & Micro Results (Past 24 Hours) RBC 3.98 M/uL (4.70-6.10) L 05/22/23 WBC 8.74 K/ul (4.8-10.8) 05/22/23 Hgb 12.0 g/dl (14.0-18.0) L 05/22/23 Hct 38.5 % (42.0-52.0) L 05/22/23 MCV 96.7 fL (80.0-100.0) 05/22/23 MCH 30.2 pg (25.0-34.0) 05/22/23 MCHC 31.2 g/dL (32.0-36.0) L 05/22/23 RDW Standard Deviation 56.7 fL (36.4-46.3) H 05/22/23 RDW Coefficient of Variation 16.0 % (11.5-14.5) H 05/22/23 Plt Count 297 K/uL (130-400) 05/22/23 MPV 11.2 fL (9.4-12.4) 05/22/23 Nucleated Red Blood Cells % (auto) 0.2 % 05/22 Nucleated RBC Absolute Count (auto) 0.02 K/uL (0.00-0.12) 0 05/22/23 Neutrophils (%) (Auto) 63.5 % 05/22/23 Lymphocytes (%) (Auto) 14.0 % 05/22/23 Monocytes # (Auto) 0.73 K/uL (0.11-0.59) H 05/22/23 Eosinophils # (Auto) 0.35 K/uL (0.00-0.50) 05/22/23 Immature Granulocyte % (Auto) 9.4 % 05/22/23 Neutrophils # (Auto) 5.56 K/uL (1.40-6.50) 05/22/23 Lymphocytes # (Auto) 1.22 K/uL (1.20-3.40) 05/22/23 Monocytes # (Auto) 0.73 K/uL (0.11-0.59) H 05/22/23 Eosinophils # (Auto) 0.35 K/uL (0.00-0.50) 05/22/23 Basophils # (Auto) 0.06 K/uL (0.00-0.20) 05/22/23 Immature Granulocyte # (Auto) 0.82 K/uL (0.01-0.20) H 05/22 Na 137 mmol/L (136-145) 05/22/23 K 3.8 mmol/L (3.5-5.1) 05/22/23 Cl 101 mmol/L (98-107) 05/22/23 CO2 29 mmol/L (21-32) 05/22/23 Anion Gap 7 (3-11) 05/22/23 BUN 82 mg/dl (6-23) H 05/22/23 Creatinine 2.00 mg/dl (0.6-1.4) H 05/22/23 Estimated GFR ( Amer) 41.7 ml/min 05/22/23 Estimated GFR (Non-Af Amer) 36.0 ml/min 05/22/23 BUN/Creatinine Ratio 41.0 (10-20) H 05/22/23 Glu 114 mg/dl (70-99(Fasting)) H 05/22/23 Ca 9.6 mg/dl (8.6-10.3) 05/22/23 Phosphorus Level 2.5 mg/dl (2.5-4.9) 05/22/23 Mg 2.0 mg/dl (1.7-2.4) 05/22/23 05:32 Calcium Level 9.6 mg/dl (8.6-10.3) 05/22/23 05:32 Galen Test Pass 05/22/23 06:12 Microbiology 05/16/23 08:16 Aerobic Blood Culture - Final Blood No growth in Aerobic bottle after 5 days. Anaerobic Blood Culture - Final No growth in Anaerobic bottle after 5 days. 05/16/23 08:01 Aerobic Blood Culture - Final Blood No growth in Aerobic bottle after 5 days. Anaerobic Blood Culture - Final Diagnostic Findings (Past 24 Hours) Chest X-Ray 05/21/23 14:10 XR chest 1V portable CLINICAL HISTORY: hypoxia TECHNIQUE: Single frontal radiograph of the chest was obtained. Comparison: Comparison is made to chest radiograph 05/20/2023 FINDINGS: Exam is limited by underpenetration. Cardiomegaly is noted. Lungs are underinflated but clear. No evidence of pleural effusion or pneumothorax. IMPRESSION: Stable cardiomegaly. No acute abnormalities to suggest pneumonia. ACT 112: Negative or not required by law. Electronically signed by: Taz Wang M.D. 05/21/2023 2:56 PM I & O Totals 24 Hours 05/21/23 05/22/23 05/23/23 06:59 06:59 06:59 Intake Total 1701.833 / 1607.635 9366.750 / 1975.750 200 / 200 Output Total 1950 / 1949 1550 / 1550 525 / 525 Balance -248.167 / -248.167 426.750 / 426.750 -325 / -325 Cumulative 05/11/23 22:14 thru 05/22/23 10:53 Intake Total 31437.214 Output Total 13032 Balance 59597.214 RT Ventilator Mngmt (Last Documented) Ventilator Ordered Settings Ventilator Support Mode CPAP 05/22/23 09:05 Respiratory Rate 17 05/22/23 10:00 Ventilator Tidal Volume 500 05/22/23 02:40 Setting Minute Ventilation 16 05/22/23 09:05 Ventilator Positive Pressure 12 05/22/23 09:05 Support Setting Positive End Expiratory 6 05/22/23 09:05 Pressure Fraction of Inspired Oxygen 40 05/22/23 10:00 Peak Inspiratory Flow 40 05/21/23 16:36 Machine Comment pt felt SOB, placed on full vent 05/20/23 19:18 support for overnight Ventilator - PT Measurements Respiratory Rate 17 Exhaled Tidal Volume 494 Minute Ventilation 16 Peak Inspiratory Airway 19 Pressure Plateau Pressure 23 Respiratory Cycle Inspiratory: 1:1.2 Expiratory Ratio Inspiratory Phase Time 1.0 End-Tidal CO2 46 Static Lung Compliance 32.60 Dynamic Lung Compliance 38.00 Normal Static Lung Compliance 48.00 Patient Measurements Comment trach care completed Coding Level of Care Code 37051 CRITICAL CARE 1ST 30-74M Diagnoses CKD (chronic kidney disease) stage 3, GFR 30-59 ml/min N18.30 Stroke I63.9 Slurring of speech R47.81 Hypoxia R09.02 Epigastric abdominal pain R10.13 Eosinophilia D72.19 DVT (deep venous thrombosis) I82.409
--- NOTE | 2023-05-22 13:41 | Gastrointestinal Consultation ---
Date of Consultation May 22, 2023 Assessment & Plan (1) Stroke: Pt is a 57 yo male admitted with stroke on lake, and trach dependent, seen for possible PEG tube placement for group home nutritional support. Currently has NGT feeding. He is not able to verbalize but can communicate via squeezing R hand (for 'yes' answer), and shakes head (for 'no' answer). He indicates that he doesn't want feeding tube placement (witnessed response by his shift RN Dawson). There's also an issue with determining pt's legal POA if he's deemed to be incompetent to make his own medical decision - wants divorce, father and daughter not comfortable to make medical decisions for pt. I spoke w ICU team - would recommend ethics committee to be consulted and for legal POA to be determined before proceeding with decision if PEG tube should be placed or not. Pls recall GI PRN Supervising Physician Co-Signing Physician Notes Patient was seen and examined on 05/22 with KAY Nunez whose note reflects our findings and plan. patient with CVA and inability to talk(nods head and squeezes hand to answer yes no questions) or eat. Complicated family situation regarding decision making and POA. Ethichs to provide consulation. Please con tact when decision has been lade and can further discuss PEG placement. History of Present Illness Reason for Consultation: PEG tube placement evaluation Requesting Physician: Dr. Lai Rebolledo Attending Physician: Dr. Harriet Murray History of Present Illness Patient is a 57 years old male with past medical history is include hypertension, hyperlipidemia, morbid obesity, chronic diastolic CHF, gout, RA, tobacco abuse, CKD history of DVT on Coumadin who is currently admitted with stroke in the [place] region. He is currently trach dependent as well. GI consulted for PEG tube placement evaluation for nutritional support. He is currently receiving feeding through NG tube. Pt is limited in his ability to follow commands. Unable to move L side of body, but able to follow commands by squeezing R hand and moving R foot, shaking head. Warfarin on hold since 05/12, last INR 1.7 on 05/17/2023. No known hx of abdominal surgeries Allergies Allergy/AdvReac Type Severity Reaction Status Date / Time Iodinated Contrast Media Allergy Hives Verified 05/12/23 00:10 iodine Allergy Hives Verified 05/12/23 00:10 Home Medications Medication Instructions Recorded Confirmed Type verapamil 240 mg 24 hr 240 mg PO QAM 08/29/22 05/12/23 History capsule,extended release carvedilol 12.5 mg tablet 12.5 mg PO BID #60 tabs 10/07/22 05/12/23 Rx torsemide 20 mg tablet 20 mg PO QAM #30 tabs 10/07/22 05/12/23 Rx prednisone 10 mg tablet 10 mg PO UD #75 tabs 10/25/22 05/12/23 Rx albuterol sulfate 90 mcg/actuation 2 puff inhalation Q4 PRN Wheezing 05/12/23 05/12/23 History aerosol inhaler allopurinol 300 mg tablet 300 mg PO DAILY 05/12/23 05/12/23 History ferrous sulfate 325 mg (65 mg 325 mg PO DAILY 05/12/23 05/12/23 History iron) tablet (FeroSul) sildenafil 50 mg tablet 50 mg PO DAILY PRN .. 05/12/23 05/12/23 History warfarin 2 mg tablet 4 mg PO DAILY 05/12/23 05/12/23 History Patient History Medical History (Updated 05/23/23 @ 04:07 by Lai Rebolledo MD) CHERYL (acute kidney injury) recurrent Anemia Bedbound since 11/2021 for unclear causes CKD (chronic kidney disease) stage 3, GFR 30-59 ml/min Depression DVT (deep venous thrombosis) Gout Morbid obesity Obesity hypoventilation syndrome Social History Smoking Status: Former smoker Tobacco Type: Cigarettes and E-cigarettes / Vaping Do You Dip or Chew Tobacco: No; Hx Alcohol Use: No Hx Substance Use: No Preferred Language: Gambian Communication Ability: Impaired Physical Therapy Nurse Required: No Beliefs That Will Affect Care: None Current Living Situation: Spouse Other Information That Helps Us Care for You: No Feels Safe at Home: Yes Safety Concerns: Feels Safe At This Time Assistive Devices: Scooter/Electric Scooter Review of Systems Review of Systems: Unobtainable due to cognitive status Physical Exam Constitutional: + morbidly obese, well groomed, cooperative and comfortable Eyes: PERRL, conjunctivae normal, anicteric sclerae ENMT: external ear and nose normal, oropharynx normal Respiratory: Normal respiratory effort, + tracheostomy Cardiovascular: RRR, no murmur, no edema Gastrointestinal (Abdomen): normal bowel sounds, soft, nontender, no hepatosplenomegaly Skin: no rashes, warm and dry no jaundice Neurologic: able to squeeze R hand and move toes on R foot; unable to verbalize otherwise Lymphatic: + lymphedema Results & Data Vital Signs (Past 12 Hours) Vital Signs Temp Pulse Resp BP Pulse Ox O2 Del Method O2 Flow Rate 05/22/23 12:00 85 19 124/85 93 CPAP 05/22/23 11:00 77 20 116/73 91 CPAP 05/22/23 11:41 79 22 91 05/22/23 10:00 78 17 126/75 94 CPAP 05/22/23 07:00 37.0 C 05/22/23 09:05 82 24 94 05/22/23 09:00 89 28 H 130/81 94 CPAP 05/22/23 08:00 82 22 115/78 94 Mechanical Vent 05/22/23 07:00 90 22 145/86 H 94 Mechanical Vent 05/22/23 07:00 Mechanical Vent 40 05/22/23 06:00 88 22 96 05/22/23 05:00 75 22 95 05/22/23 05:00 124/84 05/22/23 04:00 86 24 93 05/22/23 04:00 144/89 H 05/22/23 02:40 88 29 H 97 05/22/23 03:00 84 24 91 05/22/23 03:00 150/92 H 05/22/23 02:00 83 22 93 05/22/23 02:00 161/90 H FiO2 05/22/23 12:00 50 05/22/23 11:00 40 05/22/23 11:41 50 05/22/23 10:00 40 05/22/23 07:00 05/22/23 09:05 40 05/22/23 09:00 40 05/22/23 08:00 40 05/22/23 07:00 40 05/22/23 07:00 05/22/23 06:00 05/22/23 05:00 05/22/23 05:00 05/22/23 04:00 05/22/23 04:00 05/22/23 02:40 40 05/22/23 03:00 05/22/23 03:00 05/22/23 02:00 05/22/23 02:00
[2023-05-22 15:32] LABS: BUN Creatinine Ratio 40.6 (10-20); Calcium 9.7 mg/dl (8.6-10.3); Creatinine Clr Calc Pharmacy 74.9 ml/min; Est GFR (African American) 41.2 ml/min; Est GFR (Non-African American) 35.6 ml/min
[2023-05-22 23:47] LABS: Anti Cardiolipin Ab IgG <2.0 GPL-U/mL; Anti Cardiolipin Ab IgM 2.6 MPL-U/mL; Anti Nuclear Antibody Screen NEGATIVE (NEGATIVE); Anti-Cardiolipin Ab IgA <2.0 APL-U/mL; Anti-Centromere Ab <1.0 NEG AI (<1.0 NEG); Anti-SS-A <1.0 NEG AI (<1.0 NEG); Anti-SS-B <1.0 NEG AI (<1.0 NEG); Chromatin Antibody <1.0 NEG AI (<1.0 NEG); Complement C3 172 mg/dL (82-185); DNA ds Crithidia NEGATIVE (NEGATIVE); Microsomal Ab <1 IU/mL (<9); RNP Antibody <1.0 NEG AI (<1.0 NEG); Scleroderma Anti Scl-70 Ab <1.0 NEG AI (<1.0 NEG); Sm Antibody <1.0 NEG AI (<1.0 NEG)
[2023-05-23] MEDS: TUBE FEEDING WATER FLUSH NG SCH ×5 (02:30→20:43)
[2023-05-23] MEDS: HEPARIN SODIUM/DEXTROSE 25,000 UNITS/500 ML BAG IV SCH ×2 (03:51→16:30)
--- NOTE | 2023-05-23 04:07 | Hospitalist Progress Note ---
Date of Service May 23, 2023 delayed entry date of service 05/19 Assessment & Plan (1) Acute CVA (cerebrovascular accident): Plan: This is a 57 yo M w/ hypertension,HLD, morbid obesity, chronic diastolic CHF, and ambulatory dysfunction currently wheelchair-bound hx of gout, rheumatoid arthritis, tobacco abuse,chronic back pain, medication non compliance, chronic kidney disease, morbid obesity, obesity hypoventilation syndrome, history of DVT on Coumadin currently living at home is brought in because of strokelike symptoms since around 5 PM he noticed to have slurred speech. Metabolic encephalopathy Acute CVA, [place] Slurred speech CT head in ER - negative CTA head and neck not done because of history of significant CHERYL in the recent past Patient on Coumadin and INR therapeutic TNK was not given because of INR therapeutic Patient states he is severely claustrophobic for MRI scan Echo - EF 60 to 65%. Moderate concentric LVH. RV is grossly normal size. RV systolic function is qualitatively normal. Poorly visualized valvular anatomy. Carotid Doppler 1. Mild atherosclerosis of the carotid bulbs without hemodynamically significant stenosis. 2. Normal antegrade vertebral flow bilaterally. Brain MRI: IMPRESSION: Acute/subacute ischemic injury of the robby without evidence of hemorrhagic transformation. transferred to ICU, required bipap x 3 days found to have Acute CVA on MRI partial locked in syndrome per Neuro s/p trach placement Vent Mgt per ICU will need LTAC Acute Kidney Injury Crea 4.2 to 3.2 to 2s Nephro on board Lasix ordered Hypertension On Coreg and verapamil IV Metoprolol History DVT on heparin drip history of gout Allopurinol Rheumatoid arthritis Says currently on prednisone 30 mg daily seems to be on tapering dose Looks like he was on 5 to 10 mg daily in the past Tapering now per ICU team Morbid obesity Obesity hypoventilation syndrome Not using BiPAP at home. Says he had nocturnal study done recently and he does not have results yet. Chronic diastolic CHF Lasix ordered History of anemia On iron supplements Hemoglobin stable DVT prophylaxis Heparin drip Disposition - pending Full code Admission and Anticipated Discharge Date Admission Date: May 12, 2023 Subjective ff up for s/p acute CVA, etc s/p trach comfortable sleeping, easily awakened follows simple commands nods to answer questions denies SOB, pain no other symptoms Review of Systems Review of Systems: all noted and negative except for above Physical Exam Physical Exam: General- awake, not in distress,breathing with no effort or accessory muscle use Eyes- anicteric Neck- no JVD (+) trach Lungs- clear breath sounds bilaterally, no rales/wheezes Heart- normal rate, regular rhythm; no murmurs Abdomen- normal bowel sounds, nondistended, soft, nontender Extremities- no pretibial edema, no calf tenderness Neuro- motor strength L: 0/5 Skin- warm & dry Results & Data Results & Data Vital Signs (Past 12 Hours) Vital Signs Temp Pulse Resp BP Pulse Ox O2 Del Method O2 Flow Rate 05/22/23 20:00 05/23/23 03:56 05/23/23 00:00 76 05/22/23 20:00 37.2 C 05/23/23 00:00 77 24 96 05/23/23 00:00 139/82 05/22/23 23:00 76 24 95 05/22/23 23:00 130/81 05/23/23 00:00 37.4 C 05/23/23 00:14 05/23/23 00:07 Mechanical Vent 50 05/22/23 23:28 75 23 95 05/22/23 22:00 74 20 96 05/22/23 22:00 128/79 05/22/23 21:00 74 15 95 05/22/23 21:00 131/81 05/22/23 20:00 78 23 94 05/22/23 20:00 133/79 05/22/23 19:00 77 20 94 05/22/23 19:00 126/75 05/22/23 20:04 110 H 22 95 05/22/23 20:11 CPAP, Mechanical Vent 05/22/23 18:00 71 18 118/70 95 CPAP 05/22/23 17:00 80 20 121/74 96 CPAP FiO2 05/22/23 20:00 50 05/23/23 03:56 50 05/23/23 00:00 05/22/23 20:00 05/23/23 00:00 05/23/23 00:00 05/22/23 23:00 05/22/23 23:00 05/23/23 00:00 05/23/23 00:14 50 05/23/23 00:07 05/22/23 23:28 50 05/22/23 22:00 05/22/23 22:00 05/22/23 21:00 05/22/23 21:00 05/22/23 20:00 05/22/23 20:00 05/22/23 19:00 05/22/23 19:00 05/22/23 20:04 50 05/22/23 20:11 05/22/23 18:00 50 05/22/23 17:00 50 all noted and reviewed including below
--- NOTE | 2023-05-23 04:12 | Hospitalist Progress Note ---
Date of Service May 23, 2023 delayed entry date of service Assessment & Plan (1) Acute CVA (cerebrovascular accident): Plan: This is a 57 yo M w/ hypertension,HLD, morbid obesity, chronic diastolic CHF, and ambulatory dysfunction currently wheelchair-bound hx of gout, rheumatoid arthritis, tobacco abuse,chronic back pain, medication non compliance, chronic kidney disease, morbid obesity, obesity hypoventilation syndrome, history of DVT on Coumadin currently living at home is brought in because of strokelike symptoms since around 5 PM he noticed to have slurred speech. Metabolic encephalopathy Acute CVA, Robby Slurred speech CT head in ER - negative CTA head and neck not done because of history of significant CHERYL in the recent past Patient on Coumadin and INR therapeutic TNK was not given because of INR therapeutic Patient states he is severely claustrophobic for MRI scan Echo - EF 60 to 65%. Moderate concentric LVH. RV is grossly normal size. RV systolic function is qualitatively normal. Poorly visualized valvular anatomy. Carotid Doppler 1. Mild atherosclerosis of the carotid bulbs without hemodynamically significant stenosis. 2. Normal antegrade vertebral flow bilaterally. Brain MRI: IMPRESSION: Acute/subacute ischemic injury of the robby without evidence of hemorrhagic transformation. 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 Says he had nocturnal study done recently and he does not have results yet. Chronic diastolic CHF Lasix ordered History of anemia On iron supplements Hemoglobin stable DVT prophylaxis Heparin drip Disposition - pending Full code Admission and Anticipated Discharge Date Admission Date: May 12, 2023 Subjective ff up for acute CVA, etc seen resting in bed, sleeping switched back to vent settings per RN as patient desaturated in the AM no other issues Review of Systems Review of Systems: Unobtainable due to cognitive status Physical Exam Physical Exam: General- sleeping, not in distress,breathing with no effort or accessory muscle use Eyes- anicteric Neck- no JVD (+) trach Lungs- clear breath sounds bilaterally, no rales/wheezes Heart- normal rate, regular rhythm; no murmurs Abdomen- normal bowel sounds, nondistended, soft, nontender Extremities- no pretibial edema, no calf tenderness Neuro- no new focal symptoms Skin- warm & dry Results & Data Results & Data Vital Signs (Past 12 Hours) Vital Signs Temp Pulse Resp BP Pulse Ox O2 Del Method O2 Flow Rate 05/22/23 20:00 05/23/23 03:56 05/23/23 00:00 76 05/22/23 20:00 37.2 C 05/23/23 00:00 77 24 96 05/23/23 00:00 139/82 05/22/23 23:00 76 24 95 05/22/23 23:00 130/81 05/23/23 00:00 37.4 C 05/23/23 00:14 05/23/23 00:07 Mechanical Vent 50 05/22/23 23:28 75 23 95 05/22/23 22:00 74 20 96 05/22/23 22:00 128/79 05/22/23 21:00 74 15 95 05/22/23 21:00 131/81 05/22/23 20:00 78 23 94 05/22/23 20:00 133/79 05/22/23 19:00 77 20 94 05/22/23 19:00 126/75 05/22/23 20:04 110 H 22 95 05/22/23 20:11 CPAP, Mechanical Vent 05/22/23 18:00 71 18 118/70 95 CPAP 05/22/23 17:00 80 20 121/74 96 CPAP FiO2 05/22/23 20:00 50 05/23/23 03:56 50 05/23/23 00:00 05/22/23 20:00 05/23/23 00:00 05/23/23 00:00 05/22/23 23:00 05/22/23 23:00 05/23/23 00:00 05/23/23 00:14 50 05/23/23 00:07 05/22/23 23:28 50 05/22/23 22:00 05/22/23 22:00 05/22/23 21:00 05/22/23 21:00 05/22/23 20:00 05/22/23 20:00 05/22/23 19:00 05/22/23 19:00 05/22/23 20:04 50 05/22/23 20:11 05/22/23 18:00 50 05/22/23 17:00 50 all noted and reviewed including below
--- NOTE | 2023-05-23 04:17 | Hospitalist Progress Note ---
Date of Service May 23, 2023 delayed entry date of service 05/22 Assessment & Plan (1) Acute CVA (cerebrovascular accident): Plan: This is a 57 yo M w/ hypertension,HLD, morbid obesity, chronic diastolic CHF, and ambulatory dysfunction currently wheelchair-bound hx of gout, rheumatoid arthritis, tobacco abuse,chronic back pain, medication non compliance, chronic kidney disease, morbid obesity, obesity hypoventilation syndrome, history of DVT on Coumadin currently living at home is brought in because of strokelike symptoms since around 5 PM he noticed to have slurred speech. Metabolic encephalopathy Acute CVA, Robby admitted with Slurred speech CT head in ER - negative CTA head and neck not done because of history of significant CHERYL in the recent past Patient on Coumadin and INR therapeutic TNK was not given because of INR therapeutic Patient states he is severely claustrophobic for MRI scan Echo - EF 60 to 65%. Moderate concentric LVH. RV is grossly normal size. RV systolic function is qualitatively normal. Poorly visualized valvular anatomy. Carotid Doppler 1. Mild atherosclerosis of the carotid bulbs without hemodynamically significant stenosis. 2. Normal antegrade vertebral flow bilaterally. Brain MRI: IMPRESSION: Acute/subacute ischemic injury of the robby without evidence of hemorrhagic transformation. 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 Says he had nocturnal study done recently and he does not have results yet. 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 of Systems Review of Systems: all noted and negative except for above Physical Exam Physical Exam: General- sleeping, not in distress, breathing with no effort or accessory muscle use Eyes- anicteric Neck- no JVD trach in place Lungs- clear breath sounds bilaterally Heart- normal rate, regular rhythm; no murmurs Abdomen- normal bowel sounds, nondistended, soft, nontender Extremities- (+) upper and lower ext edema, no calf tenderness Neuro- sleeping Skin- warm & dry Results & Data Results & Data Vital Signs (Past 12 Hours) Vital Signs Temp Pulse Resp BP Pulse Ox O2 Del Method O2 Flow Rate 05/23/23 04:00 77 22 94 05/23/23 03:00 80 22 93 05/23/23 03:00 127/74 05/23/23 02:00 76 22 93 05/23/23 02:00 128/79 05/23/23 01:00 74 19 94 05/23/23 01:00 141/82 H 05/23/23 04:13 37.2 C 05/23/23 04:01 Mechanical Vent 50 05/22/23 20:00 05/23/23 03:56 05/23/23 00:00 76 05/22/23 20:00 37.2 C 05/23/23 00:00 77 24 96 05/23/23 00:00 139/82 05/22/23 23:00 76 24 95 05/22/23 23:00 130/81 05/23/23 00:00 37.4 C 05/23/23 00:14 05/23/23 00:07 Mechanical Vent 50 05/22/23 23:28 75 23 95 05/22/23 22:00 74 20 96 05/22/23 22:00 128/79 05/22/23 21:00 74 15 95 05/22/23 21:00 131/81 05/22/23 20:00 78 23 94 05/22/23 20:00 133/79 05/22/23 19:00 77 20 94 05/22/23 19:00 126/75 05/22/23 20:04 110 H 22 95 05/22/23 20:11 CPAP 05/22/23 18:00 71 18 118/70 95 CPAP 05/22/23 17:00 80 20 121/74 96 CPAP FiO2 05/23/23 04:00 05/23/23 03:00 05/23/23 03:00 05/23/23 02:00 05/23/23 02:00 05/23/23 01:00 05/23/23 01:00 05/23/23 04:13 05/23/23 04:01 05/22/23 20:00 50 05/23/23 03:56 50 05/23/23 00:00 05/22/23 20:00 05/23/23 00:00 05/23/23 00:00 05/22/23 23:00 05/22/23 23:00 05/23/23 00:00 05/23/23 00:14 50 05/23/23 00:07 05/22/23 23:28 50 05/22/23 22:00 05/22/23 22:00 05/22/23 21:00 05/22/23 21:00 05/22/23 20:00 05/22/23 20:00 05/22/23 19:00 05/22/23 19:00 05/22/23 20:04 50 05/22/23 20:11 05/22/23 18:00 50 05/22/23 17:00 50 all noted and reviewed including below
[2023-05-23 06:06] LABS: Hematocrit (blood only) 37.9 % (42.0-52.0); Hemoglobin 11.7 g/dl (14.0-18.0); Mean Corpuscular Hgb Conc 30.9 g/dL (32.0-36.0); Mean Corpuscular Volume 97.2 fL (80.0-100.0); Mean Platelet Volume 11.4 fL (9.4-12.4); Platelet Count 294 K/uL (130-400); RDW Coefficient of Variation 16.3 % (11.5-14.5); White Blood Count 8.65 K/ul (4.8-10.8)
[2023-05-23 06:22] LABS: BUN Creatinine Ratio 39.4 (10-20); Calcium 9.8 mg/dl (8.6-10.3); Creatinine Clr Calc Pharmacy 69.6 ml/min; Est GFR (Non-African American) 32.8 ml/min; Magnesium 1.9 mg/dl (1.7-2.4); Phosphorus 2.3 mg/dl (2.5-4.9); Potassium 3.7 mmol/L (3.5-5.1)
[2023-05-23 06:26] LABS: Partial Thromboplastin Ratio 2.1
[2023-05-23 06:41] LABS: Partial Thromboplastin Time 58.1 Seconds (21.0-31.0)
[2023-05-23 06:58] LABS: Eosinophils # (manual) 0.35 K/uL (0-0.50); Eosinophils % (manual) 4 %; Lymphocytes % (manual) 15 %; Metamyelocytes # (manual) 0.78 K/uL (0-0); Metamyelocytes % (manual) 9 %; Monocytes # (manual) 0.78 K/uL (0.11-0.59); Monocytes % (manual) 9 %; Myelocytes # (manual) 0.35 K/uL (0-0); Myelocytes % (manual) 4 %; Neutrophils % (manual) 59 %
[2023-05-23] MEDS: predniSONE 10 MG TABLET PO SCH (08:25)
[2023-05-23] MEDS: ESCITALOPRAM OXALATE ORAL SOLN 5 MG/5 ML UDP NG SCH (08:25)
[2023-05-23] MEDS: allopurinoL 300 MG TAB PO SCH (08:26)
[2023-05-23] MEDS: FOLIC ACID 1 MG TAB PO SCH (08:26)
[2023-05-23] MEDS: ATORVASTATIN 40 MG TAB PO SCH (08:26)
[2023-05-23] MEDS: FERROUS SULFATE 325 MG TAB PO SCH (08:26)
[2023-05-23] MEDS: THIAMINE HCL 100 MG TAB NG SCH (08:26)
[2023-05-23] MEDS: carvediloL 25 MG TAB PO SCH ×2 (08:27→16:32)
[2023-05-23] MEDS: FAMOTIDINE 20 MG in SYRINGE 3 ML IV SCH (08:28)
[2023-05-23] MEDS: CEFEPIME 2,000 MG in SYRINGE 0 ML IV SCH ×2 (08:28→20:44)
[2023-05-23 09:28] LABS: INR 1.1 (0.9-1.1); Prothrombin Time 12.4 Seconds (9.0-12.0)
--- NOTE | 2023-05-23 10:19 | XRay Report ---
XR chest 1V portable CLINICAL HISTORY: Respiratory failure. COMPARISON STUDY: Chest radiograph May 21, 2023. FINDINGS: Tip of the tracheostomy tube is 6.6 cm above the onesimo. Tip of nasogastric tube is within the stomach. There is no pneumothorax or pleural effusion. Cardiomegaly is unchanged. Low lung volume s are also unchanged. There is no evidence for pulmonary edema. Linear left basilar opacity favors at electasis. IMPRESSION: 1. Lines and tubes remain unchanged in position. 2. Stable cardiomegaly. No evidence for pulmonary edema. 3. Left basilar opacity suggestive of atelectasis. ACT 112: Negative or not required by law. Electronically signed by: Shan Pedroza M.D. 05/23/2023 10:18 AM
--- NOTE | 2023-05-23 11:09 | Nephrology Progress Note ---
Date of Service May 23, 2023 Assessment & Plan Admission and Anticipated Discharge Date Admission Date: May 12, 2023 Subjective Assessment & Plan (1) CHERYL (acute kidney injury): Plan: Further improving nonoliguric stage II acute kidney injury likely ischemic ATN multifactorial. Baseline creatinine 1.7-1.9 in pt quite prone to CHERYL based on previous admissions' renal profile. did have single 20 mg torsemide 05/12. presented 05/11 w/ creatinine 1.5, then rapidly up to 2.6 peak creatinine 4.4 on 05/15 from [facility]. Admission UA unremarkable for inflammation; no eosinophilia currently or as of spring. Creat was 2 and slightly higher today after lasix 40. So current creat is about baseline. Follow Daily BMP. CXR earlier did not show Pulm edema. Dont give lasix or iv fluid today (2) CKD (chronic kidney disease) stage 3, GFR 30-59 ml/min: Plan: baseline creatinine 1.7-1.9 as OP in 2022. Creat was 2 and slightly higher today after lasix 40. (3) Stroke: Plan: per primary service and neuro Subjective Still critical. had lasix yesterday. ? peg tube placement --issues with Consent. Unresponsive Review of Systems Review of Systems: Unobtainable due to reduced consciousness Physical Exam Constitutional: well developed, well nourished and + morbidly obese; no acute distress Eyes: EOM intact bilaterally ENMT: Ears: no external ear abnormality Nose: no external nose abnormality Mouth: + dry oral mucous membranes Neck: + tracheostomy present; no nuchal rigidity Respiratory: normal respiratory effort Auscultation: + diminished lung sounds Cardiovascular: Rate/Rhythm: regular rate and regular rhythm Extremities: no edema Gastrointestinal (Abdomen): Inspection/Auscultation: normal bowel sounds Percussion/Palpation: abdomen soft; abdomen nontender Musculoskeletal: Extremities: + abnormal strength Skin: no rashes, warm and dry Results & Data Vital Signs (Past 12 Hours) Vital Signs Temp Pulse Resp BP Pulse Ox O2 Del Method O2 Flow Rate 05/23/23 10:00 78 25 H 88 L 05/23/23 10:00 113/71 05/23/23 09:00 83 24 90 05/23/23 09:00 107/71 05/23/23 08:00 85 24 93 CPAP 05/23/23 08:00 130/76 05/23/23 07:00 81 22 91 05/23/23 07:00 126/77 05/23/23 08:00 37.4 C 05/23/23 08:30 CPAP 05/23/23 08:00 05/23/23 07:54 84 20 95 05/23/23 06:00 76 22 90 05/23/23 06:00 120/76 05/23/23 05:00 75 22 94 05/23/23 05:00 128/77 05/23/23 04:38 77 22 94 05/23/23 01:20 81 24 93 05/23/23 04:00 77 22 94 05/23/23 03:00 80 22 93 05/23/23 03:00 127/74 05/23/23 02:00 76 22 93 05/23/23 02:00 128/79 05/23/23 01:00 74 19 94 05/23/23 01:00 141/82 H 05/23/23 04:13 37.2 C 05/23/23 04:01 Mechanical Vent 50 05/23/23 03:56 05/23/23 00:00 76 05/23/23 00:00 77 24 96 05/23/23 00:00 139/82 05/23/23 00:00 37.4 C 05/23/23 00:14 05/23/23 00:07 Mechanical Vent 50 05/22/23 23:28 75 23 95 FiO2 05/23/23 10:00 05/23/23 10:00 05/23/23 09:00 05/23/23 09:00 05/23/23 08:00 0.4 05/23/23 08:00 05/23/23 07:00 05/23/23 07:00 05/23/23 08:00 05/23/23 08:30 0.4 05/23/23 08:00 50 05/23/23 07:54 40 05/23/23 06:00 05/23/23 06:00 05/23/23 05:00 05/23/23 05:00 05/23/23 04:38 50 05/23/23 01:20 60 05/23/23 04:00 05/23/23 03:00 05/23/23 03:00 05/23/23 02:00 05/23/23 02:00 05/23/23 01:00 05/23/23 01:00 05/23/23 04:13 05/23/23 04:01 05/23/23 03:56 50 05/23/23 00:00 05/23/23 00:00 05/23/23 00:00 05/23/23 00:00 05/23/23 00:14 50 05/23/23 00:07 05/22/23 23:28 50
--- NOTE | 2023-05-23 12:25 | Critical Care Progress Note ---
Date of Service May 23, 2023 Assessment & Plan (1) CKD (chronic kidney disease) stage 3, GFR 30-59 ml/min: (2) Stroke: (3) Slurring of speech: (4) Hypoxia: (5) Epigastric abdominal pain: (6) Eosinophilia: (7) DVT (deep venous thrombosis): Plan Reason Critically Ill: 57 YOM admitted for stroke like symptoms currently with worsening of aphasia, left sided weakness and tachypnea on BiPAP with concern for respiratory failure. 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 She is still deciding on POA. And has asked to video chat her father today. -will require PEG placement Brain MRI 05/18/2023 acute/subacute injury of the [place] without evidence of hemorrhagic transformation. -TSH, sodium, calcium, glucose within normal limit on 05/15/2023 -Follow-up autoimmune work-up -ESR and CRP are elevated for the patient which is nonspecific 2D echo 05/12/2023: EF 60-65%, moderate concentric LVH, RV systolic function normal Neurology on board Cardiac -HTN, HLD - High Dose statin therapy - 40mg Atorvastatin Respiratory -Acute on Chronic Respiratory failure, Obesity Hypoventilation syndrome -- Trach dependent respiratory failure Trach size 8 XLT proximal placed by Dr. Dubon 05/17/2023 -serial CXR'S -Continue pulmonary hygiene -We will continue to place patient on CPAP mode and eventually transition to trach collar during the day and ventilator mode settings of assist-control nocturnally. GI -Morbid Obesity - no acute needs RENAL/LYTES - CHERYL on CKD --> improving -Monitor BUNs/creatinine which is improving with creatinine of 2.0 today -Avoid nephrotoxic medications - Nephrology on board -CHERYL-Stage II -diuresis with Lasix 40mg intermittently. We will follow creatinine. Overall serum creatinine and renal function has improved - No acute need - Starks to gravity ENDO - No acute needs - HGB A1C 5.5 range -Continue with ICU hypoglycemia protocol HEME -Hx of Eosinophilia on chronic prednisone, HX of DVT History of eosinophil count as high as 3400 10/17/2022 - Follows with Allergy- on steroid taper -On prednisone taper since 04/28/2023. Was started on 40 mg and was supposed to decrease by 10 mg every week. -- History of DVT On chronic warfarin follow daily INR to goal 2-2.5 -- Following decision on PEG tube placement will resume patient's Coumadin for anticoagulation and remove heparin drip. ID - -- Pseudomonas pansensitive in the urine Started on Rocephin 05/15/2023 --> changed to cefepime 05/17/2023, will continue for 10 days -Depression - seen by Psychiatry -started on Lexapro --Prophylaxis VTE: Heparin drip GI: Pepcid Lines: Peripheral Diet: Tube feeds-tolerating well Plan: In/out: 2301mL/ urine output 1725ml Chest x-ray from today shows trach 7 cm above the onesimo. Currently has size 8 XLT-P. Patient getting good volumes. He might need Brovana given his thick neck Try pressure support today. If he does well today then tomorrow we can try trach collar Continue with vent nightly Potassium being replaced Continue diuresis Overall prognosis is poor Patient will need long-term placement and PEG tube placement in future. This has been discussed with his daughter, Deb, who is deciding to take POA responsibility from patient's . Discussion on rounds as to who patient's POA will be since his wants divorce, will speak have social security benefits interviewer speak to father about taking POA I have personally spent 40 minutes of critical care time in the direct management of this patient today on 05/22/2023. This is a life/limb threatening event. This includes time spent evaluating patient, direct bedside care, chart review, placing orders, interpretation of diagnostic studies, discussion with consultants, patient, and family members, as well as other required patient management activities. This time is exclusive of all separately billable procedures, and teaching time and separate from and in addition to any other critical care service time. Please note the above document was generated using voice recognition software. It may contain grammatical, syntax or spelling errors. Admission and Anticipated Discharge Date Admission Date: May 12, 2023 Subjective Patient doing well today appears to understand our speech as we talk to him and is amendable to having PEG tube inserted. Review of Systems Review of Systems: All systems reviewed & are unremarkable except as noted in HPI & below Physical Exam Constitutional: WD/WN, vitals as above Eyes: PERRL, conjunctivae normal, anicteric sclerae ENMT: external ear and nose normal, oropharynx normal Neck: trachea midline, no thyromegaly Tracheostomy midline, no evidence of bleeding, misplacement or inflammation Respiratory: normal respiratory effort, lungs clear to auscultation Cardiovascular: Rate/Rhythm: regular rate and regular rhythm Gastrointestinal (Abdomen): normal bowel sounds, soft, nontender, no hepatosplenomegaly Musculoskeletal: no cyanosis or clubbing, extremities motor strength 5/5 Skin: no rashes, warm and dry Neurologic: patellar DTR's 2+ bilat, sensation intact and PERRL, EOMI, accommodation nl, no face palsy, no dysarthria Psychiatric: Orientation: alert Genitourinary: Patient using Starks catheter. Results & Data Results & Data Vital Signs (Past 12 Hours) Vital Signs Temp Pulse Resp BP Pulse Ox O2 Del Method O2 Flow Rate 05/23/23 11:29 77 26 H 90 05/23/23 10:00 78 25 H 88 L 05/23/23 10:00 113/71 05/23/23 09:00 83 24 90 05/23/23 09:00 107/71 05/23/23 08:00 85 24 93 CPAP 05/23/23 08:00 130/76 05/23/23 07:00 81 22 91 05/23/23 07:00 126/77 05/23/23 08:00 37.4 C 05/23/23 08:30 CPAP 05/23/23 08:00 05/23/23 07:54 84 20 95 05/23/23 06:00 76 22 90 05/23/23 06:00 120/76 05/23/23 05:00 75 22 94 05/23/23 05:00 128/77 05/23/23 04:38 77 22 94 05/23/23 01:20 81 24 93 05/23/23 04:00 77 22 94 05/23/23 03:00 80 22 93 05/23/23 03:00 127/74 05/23/23 02:00 76 22 93 05/23/23 02:00 128/79 05/23/23 01:00 74 19 94 05/23/23 01:00 141/82 H 05/23/23 04:13 37.2 C 05/23/23 04:01 Mechanical Vent 50 05/23/23 03:56 05/23/23 00:14 FiO2 05/23/23 11:29 05/23/23 10:00 05/23/23 10:00 05/23/23 09:00 05/23/23 09:00 05/23/23 08:00 0.4 05/23/23 08:00 05/23/23 07:00 05/23/23 07:00 05/23/23 08:00 05/23/23 08:30 0.4 05/23/23 08:00 50 05/23/23 07:54 40 05/23/23 06:00 05/23/23 06:00 05/23/23 05:00 05/23/23 05:00 05/23/23 04:38 50 05/23/23 01:20 60 05/23/23 04:00 05/23/23 03:00 05/23/23 03:00 05/23/23 02:00 05/23/23 02:00 05/23/23 01:00 05/23/23 01:00 05/23/23 04:13 05/23/23 04:01 05/23/23 03:56 50 05/23/23 00:14 50 Laboratory Results Laboratory Results WBC 8.65 K/ul (4.8-10.8) 05/23/23 05:35 RBC 3.90 M/uL (4.70-6.10) L 05/23/23 05:35 Hgb 11.7 g/dl (14.0-18.0) L 05/23/23 05:35 POC Hgb 12.2 g/dl (14.0-18.0) L 05/22/23 06:12 Hct 37.9 % (42.0-52.0) L 05/23/23 05:35 POC Hct 36 % (42-52) L 05/22/23 06:12 MCV 97.2 fL (80.0-100.0) 08/30/23 05:35 MCH 30.0 pg (25.0-34.0) 05/23/23 05:35 MCHC 30.9 g/dL (32.0-36.0) L 05/23/23 05:35 RDW Std Deviation 58.0 fL (36.4-46.3) H 05/23/23 05:35 RDW Coeff of Cheryl 16.3 % (11.5-14.5) H 05/23/23 05:35 Plt Count 294 K/uL (130-400) 05/23/23 05:35 MPV 11.4 fL (9.4-12.4) 05/23/23 05:35 Immature Gran % (Auto) 9.4 % 05/22/23 05:32 Neut % (Auto) 63.5 % 05/22/23 05:32 Lymph % (Auto) 14.0 % 05/22/23 05:32 [place] % (Auto) 8.4 % 05/22/23 05:32 Eos % (Auto) 4.0 % 05/22/23 05:32 Baso % (Auto) 0.7 % 05/22/23 05:32 Neut # (Auto) 5.56 K/uL (1.40-6.50) 05/22/23 05:32 Lymph # (Auto) 1.22 K/uL (1.20-3.40) 05/22/23 05:32 [place] # (Auto) 0.73 K/uL (0.11-0.59) H 05/22/23 05:32 Eos # (Auto) 0.35 K/uL (0.00-0.50) 05/22/23 05:32 Baso # (Auto) 0.06 K/uL (0.00-0.20) 05/22/23 05:32 Immature Gran # (Auto) 0.82 K/uL (0.01-0.20) H 05/22/23 05:32 Absolute Nucleated RBC 0.02 K/uL (0.00-0.12) 05/22/23 05:32 Nucleated RBC % (auto) 0.2 % 05/22/23 05:32 Neutrophils % (Manual) 59 % 05/23/23 05:35 Lymphocytes % (Manual) 15 % 05/23/23 05:35 Monocytes % (Manual) 9 % 05/23/23 05:35 Eosinophils % (Manual) 4 % 05/23/23 05:35 Metamyelocytes % (Man) 9 % 05/23/23 05:35 Myelocytes % (Man) 4 % 05/23/23 05:35 Neutrophils # (Manual) 5.10 K/uL (1.40-6.50) 05/23/23 05:35 Total Absolute Neuts 5.10 K/uL (1.4-6.5) 05/23/23 05:35 Lymphocytes # (Manual) 1.30 K/uL (1.2-3.4) 05/23/23 05:35 Total Abs Lymphocytes 1.30 K/uL (1.2-3.4) 05/23/23 05:35 Monocytes # (Manual) 0.78 K/uL (0.11-0.59) H 05/23/23 05:35 Eosinophils # (Manual) 0.35 K/uL (0-0.50) 05/23/23 05:35 Metamyelocytes # (Man) 0.78 K/uL (0-0) H 05/23/23 05:35 Myelocytes # (Manual) 0.35 K/uL (0-0) H 05/23/23 05:35 RBC Morphology Unremarkable 05/21/23 04:08 Polychromasia 1+ 05/20/23 04:25 ESR > 130 mm/hr (0-20) H 05/15/23 15:50 PT 12.4 Seconds (9.0-12.0) H 05/23/23 05:25 POC INR 2.3 (0.9-1.1) H 05/11/23 22:33 INR 1.1 (0.9-1.1) 05/23/23 05:25 APTT 58.1 Seconds (21.0-31.0) H* 05/23/23 05:25 PTT Ratio 2.1 05/23/23 05:25 Sample Site L Radial 05/22/23 06:12 POC pH 7.49 (7.35-7.45) H 05/22/23 06:12 POC pCO2 40 mmHg (35-46) 05/22/23 06:12 POC pO2 110 mmHg (80-95) H 05/22/23 06:12 POC HCO3 31 derek/L (19-24) H 05/22/23 06:12 POC Total CO2 32 mmol/L (24-31) H 05/22/23 06:12 POC Base Excess 7.0 derek/L (-9-1.8) H 05/22/23 06:12 ABG pH 7.32 (7.35-7.45) L 05/13/23 00:31 ABG pH (Temp Correct) 7.487 (7.35-7.45) H 05/22/23 06:12 ABG pCO2 55 mmHg (35-46) H 05/13/23 00:31 ABG pCO2 (Temp Corrct 40 mmHg (35-46) 05/22/23 06:12 ABG pO2 117 mmHg (80-95) H 05/13/23 00:31 POC ABG pO2 at Pt Temp 110 05/22/23 06:12 ABG HCO3 28 mmol/L (19-24) H 05/13/23 00:31 POC ABG O2 Sat 99.0 % (90-95) H 05/22/23 06:12 ABG O2 Saturation 99.2 % (90-95) H 05/13/23 00:31 ABG Base Excess 1.1 mEq/L (-9-1.8) 05/13/23 00:31 Galen Test Pass 05/22/23 06:12 VBG pH 7.47 (7.36-7.41) H 05/11/23 22:36 VBG pCO2 45 mmHg (38-50) 05/11/23 22:36 VBG pO2 49 mmHg 05/11/23 22:36 VBG HCO3 33 mmol/L 05/11/23 22:36 VBG O2 Saturation 85.9 % 05/11/23 22:36 VBG Base Excess 8.0 mEq/L 05/11/23 22:36 Oxygen Given 7L 05/13/23 00:31 O2 Delivery Device Ventilator 05/22/23 06:12 POC O2 Rate 22 05/22/23 06:12 Minute Ventilation 11.0 05/21/23 14:39 POC FiO2 60 % 05/22/23 06:12 Tidal Volume 500 05/22/23 06:12 PEEP 8 05/22/23 06:12 IPAP 18 05/17/23 09:30 POC Sodium 136 mmol/L (135-144) 05/22/23 06:12 Sodium 138 mmol/L (136-145) 05/23/23 05:35 POC Potassium 3.6 mmol/L (3.3-5.0) 05/22/23 06:12 Potassium 3.7 mmol/L (3.5-5.1) 05/23/23 05:35 Chloride 100 mmol/L (98-107) 05/23/23 05:35 Carbon Dioxide 29 mmol/L (21-32) 05/23/23 05:35 Anion Gap 9 (3-11) 05/23/23 05:35 BUN 85 mg/dl (6-23) H 05/23/23 05:35 Creatinine 2.16 mg/dl (0.6-1.4) H 05/23/23 05:35 Est Cr Clr Drug Dosing 69.6 ml/min 05/23/23 05:35 Est GFR ( Amer) 38.0 ml/min 05/23/23 05:35 Est GFR (Non-Af Amer) 32.8 ml/min 05/23/23 05:35 BUN/Creatinine Ratio 39.4 (10-20) H 05/23/23 05:35 Glucose 123 mg/dl (70-99(Fasting)) H 05/23/23 05:35 POC Glucose 117 mg/dl (70-99) H 05/22/23 07:17 Estimat Average Glucose 128 mg/dl 05/13/23 01:41 Hemoglobin A1c 6.1 % (4.5-5.6) H 05/13/23 01:41 Lactate 1.7 mmol/L (0.4-2.0) 05/11/23 22:36 Calcium 9.8 mg/dl (8.6-10.3) 05/23/23 05:35 Ionized Calcium 1.24 mmol/L (1.12-1.32) 05/17/23 05:26 Phosphorus 2.3 mg/dl (2.5-4.9) L 05/23/23 05:35 Magnesium 1.9 mg/dl (1.7-2.4) 05/23/23 05:35 Total Bilirubin 0.7 mg/dl (0.2-1.0) 05/13/23 01:41 AST 9 U/L (13-39) L 05/13/23 01:41 ALT 8 U/L (7-52) 05/13/23 01:41 Alkaline Phosphatase 62 U/L (34-104) 05/13/23 01:41 Troponin I High Sens 12.4 pg/ml (0-20) 05/13/23 01:41 C-Reactive Protein 50.71 mg/dl (0-0.5) H 05/15/23 15:50 Total Protein 6.9 gm/dl (6.0-8.3) 05/13/23 01:41 Albumin 3.6 gm/dl (3.4-5.0) 05/13/23 01:41 Globulin 3.3 gm/dl (2.5-4.0) 05/13/23 01:41 Albumin/Globulin Ratio 1.1 (0.9-2) 05/13/23 01:41 Triglycerides 173 mg/dl (0-150) H 05/13/23 01:41 Cholesterol 281 mg/dl (0-200) H 05/13/23 01:41 LDL Cholesterol, Calc 206 mg/dl 05/13/23 01:41 VLDL Cholesterol, Calc 35 mg/dl (0-30) H 05/13/23 01:41 HDL Cholesterol 40 mg/dl 05/13/23 01:41 Cholesterol/HDL Ratio 7.0 (0-5) H 05/13/23 01:41 Procalcitonin < 0.05 ng/ml (0-0.5) 05/11/23 22:36 TSH 2.374 uIu/ml (0.300-4.500) 05/15/23 15:50 Urine Color Dark Yellow 05/15/23 16:35 Urine Appearance Turbid (Clear) A 05/15/23 16:35 Urine pH 5.0 (4.5-7.5) 05/15/23 16:35 Ur Specific [place] 1.019 (1.000-1.030) 05/15/23 16:35 Urine Protein Trace (Negative) H 05/15/23 16:35 Urine Glucose (UA) Negative (Negative) 05/15/23 16:35 Urine Ketones Negative (Negative) 05/15/23 16:35 Urine Blood 3+ (Negative) H 05/15/23 16:35 Urine Nitrite Negative (Negative) 05/15/23 16:35 Urine Bilirubin 1+ (Negative) H 05/15/23 16:35 Urine Urobilinogen Negative (Negative) 05/15/23 16:35 Ur Leukocyte Esterase 2+ (Negative) H 05/15/23 16:35 Urine WBC (Auto) >30 /hpf (0-5) H 05/15/23 16:35 Urine RBC (Auto) 10-30 /hpf (0-4) H 05/15/23 16:35 U Hyaline Cast (Auto) 5-10 /lpf (0-5) H 05/15/23 16:35 U Epithel Cells (Auto) 10-20 /lpf (0-5) H 05/15/23 16:35 Urine Bacteria (Auto) 2+ (Negative) H 05/15/23 16:35 Amorphous Sediment Present (None Prsent) A 05/15/23 16:35 Granular Casts 1-5 /lpf (0) H 05/15/23 16:35 Urine Yeast Not Reportable 05/15/23 16:35 Urine Osmolality 384 mOsm/kg (500-800) L 05/15/23 10:35 Ur Random Creatinine 198.6 mg/dl 05/15/23 10:35 Ur Random Sodium 27 mmol/L 05/15/23 10:35 Ur Random Potassium 75.2 mmol/L 05/15/23 10:35 Ur Random Chloride < 15 mmol/L 05/15/23 10:35 Ur Random Uric Acid 17 mg/dL 05/15/23 10:35 Urine Opiates Screen Neg (Neg) 05/12/23 14:22 Ur Methadone, Qual Neg (Neg) 05/12/23 14:22 Urine Barbiturates Neg (Neg) 05/12/23 14:22 Ur Phencyclidine (PCP) Neg (Neg) 05/12/23 14:22 U Amphetamin/Meth Scrn Neg (Neg) 05/12/23 14:22 MDMA (Ecstasy) Screen Neg (Neg) 05/12/23 14:22 U Benzodiazepines Scrn Neg (Neg) 05/12/23 14:22 Ur Cocaine Metabolite Neg (Neg) 05/12/23 14:22 U Marijuana (THC) Screen Neg (Neg) 05/12/23 14:22 KEELY Screen NEGATIVE (NEGATIVE) 05/15/23 15:50 SS-A/Ro Antibody <1.0 NEG AI (<1.0 NEG) 05/15/23 15:50 SS-B/La Antibody <1.0 NEG AI (<1.0 NEG) 05/15/23 15:50 Sm (Arora) Antibody <1.0 NEG AI (<1.0 NEG) 05/15/23 15:50 DOCUMENT IMPROVEMENT SPECIALIST Antibody <1.0 NEG AI (<1.0 NEG) 05/15/23 15:50 Scl-70 Scleroderma Ab <1.0 NEG AI (<1.0 NEG) 05/15/23 15:50 Anti-ds DNA (Crithidia) NEGATIVE (NEGATIVE) 05/15/23 15:50 Chromatin Antibody <1.0 NEG AI (<1.0 NEG) 05/15/23 15:50 Anti-Centromere Ab <1.0 NEG AI (<1.0 NEG) 05/15/23 15:50 Histone Ab, Qual <1.0 U (<1.0) 05/16/23 04:38 Thyroid Antimicrosomal <1 IU/mL (<9) 05/15/23 15:50 Anti-Cardiolipin IgG Ab <2.0 GPL-U/mL 05/15/23 15:50 Anti-Cardiolipin IgA Ab <2.0 APL-U/mL 05/15/23 15:50 Anti-Cardiolipin IgM Ab 2.6 MPL-U/mL 05/15/23 15:50 Complement C3 172 mg/dL (82-185) 05/15/23 15:50 Complement C4 50 mg/dL (15-53) 05/15/23 15:50 Blood Type O Negative 05/11/23 22:36 Antibody Screen NEGATIVE 05/11/23 22:36 Impressions Carotid Doppler Study 05/12/23 04:47 US carotid doppler BI CLINICAL HISTORY: 57 years-old Male with cva. Acute strokelike symptoms COMPARISON: None TECHNIQUE: Multiple real time sonographic images of the carotid bifurcations were obtained assessing hillman scale, color Doppler and spectral wave form appearance FINDINGS: RIGHT CAROTID: The peak systolic velocity measured within the right ICA is 56 cm/sec. The end diastolic velocity measured 21 cm/sec. The ICA to CCA ratio measured 0.7 which correlates with a stenosis of 0-50%. LEFT CAROTID: The peak systolic velocity measured within the left ICA is 44 cm/sec. The end diastolic velocity measured 18 cm/sec. The ICA to CCA ratio measured 1.2 which correlates with a stenosis of 0-50%. Mild atherosclerosis of the carotid bulbs. There is normal antegrade vertebral flow bilaterally. IMPRESSION: 1. Mild atherosclerosis of the carotid bulbs without hemodynamically significant stenosis. 2. Normal antegrade vertebral flow bilaterally. ACT 112: Negative or not required by law. The above report was generated using voice recognition software. It may contain grammatical, syntax or spelling errors. Electronically signed by: Mayito Garza M.D. 05/12/2023 11:[address] 05/12/23 23:59 Exam(s): CT HEAD Without Contrast EXAM: CT Head Without Intravenous Contrast CLINICAL HISTORY: Reason for exam: ams. TECHNIQUE: Axial computed tomography images of the head/brain without intravenous contrast. Automated exposure control was utilized for the study. A dose lowering technique was utilized adhering to the principles of ALARA. COMPARISON: Comparison made to prior head CT from May 12, 2023. FINDINGS: The study is suboptimal secondary to motion artifact. Brain: Unremarkable. No hemorrhage. Moderate nonspecific white matter changes. No edema. Ventricles: Unremarkable. No ventriculomegaly. Bones/joints: Unremarkable. No acute fracture. Soft tissues: Findings concerning for thyroid ophthalmopathy, which can be seen in the setting of Graves' disease. Sinuses: Unremarkable as visualized. No acute sinusitis. Mastoid air cells: Unremarkable as visualized. No mastoid effusion. IMPRESSION: No evidence of acute intracranial pathology. Electronically signed by: Janis Riddle MD 05/13/23 04:13 AM Renal Ultrasound 05/15/23 07:44 RENAL ULTRASOUND HISTORY: Acute kidney injury CHERYL COMPARISON: 10/19/2022 FINDINGS: Right kidney: 13.8 cm. No hydronephrosis. Diffuse cortical thinning with increased parenchymal echogenicity. 4.9 cm cyst of the inferior pole. Left kidney: 14.5 cm. No hydronephrosis. Diffuse cortical thinning with increased parenchymal echogenicity. Left renal cysts measure up to 3 cm. Bladder: Decompressed with Starks catheter. Limited exam secondary to patient body habitus. IMPRESSION: 1. Limited exam secondary to patient body habitus. 2. Evidence of chronic medical renal disease. 3. Probable complex and simple cysts of the kidneys are suboptimally visualized. ACT 112: Negative or not required by law. Electronically signed by: Mayito Garza M.D. 05/15/2023 12:44 PM Brain MRI 05/18/23 19:42 Exam(s): MRI HEAD Without Contrast EXAM: MR Head Without Intravenous Contrast CLINICAL HISTORY: Reason for exam: Stroke. TECHNIQUE: Magnetic resonance images of the head/brain without intravenous contrast in multiple planes. COMPARISON: Comparison made to prior head CT from May 13, 2023. FINDINGS: Brain: There is a large acute/subacute ischemic injury of the lake with extensive cytotoxic edema. Mild to moderate nonspecific white matter changes. No evidence of hemorrhagic transformation. No mass. No hemorrhage. The flow voids at the base the brain are intact. Ventricles: Mild ventriculomegaly. Bones/joints: Unremarkable. Sinuses: Chronic maxillary, sphenoid and ethmoid sinusitis. No acute sinusitis. Mastoid air cells: There is a small amount of fluid in the right mastoid air cells. No mastoid effusion. Orbits: Findings concerning for thyroid ophthalmopathy, which can be seen in the setting of Graves' disease. IMPRESSION: Acute/subacute ischemic injury of the lake without evidence of hemorrhagic transformation. Electronically signed by: Janis Riddle MD 05/19/23 00:24 AM Chest X-Ray 05/23/23 07:00 XR chest 1V portable CLINICAL HISTORY: Respiratory failure. COMPARISON STUDY: Chest radiograph May 21, 2023. FINDINGS: Tip of the tracheostomy tube is 6.6 cm above the onesimo. Tip of nasogastric tube is within the stomach. There is no pneumothorax or pleural effusion. Cardiomegaly is unchanged. Low lung volumes are also unchanged. There is no evidence for pulmonary edema. Linear left basilar opacity favors atelectasis. IMPRESSION: 1. Lines and tubes remain unchanged in position. 2. Stable cardiomegaly. No evidence for pulmonary edema. 3. Left basilar opacity suggestive of atelectasis. ACT 112: Negative or not required by law. Electronically signed by: Shan Pedroza M.D. 05/23/2023 10:18 AM Medications Administered Home Medications Medication Instructions Recorded Confirmed Last Taken verapamil 240 mg 24 hr 240 mg PO QAM 08/29/22 05/12/23 08/28/22 capsule,extended release carvedilol 12.5 mg tablet 12.5 mg PO BID #60 tabs 10/07/22 05/12/23 Unknown torsemide 20 mg tablet 20 mg PO QAM #30 tabs 10/07/22 05/12/23 Unknown prednisone 10 mg tablet 10 mg PO UD #75 tabs 10/25/22 05/12/23 Unknown albuterol sulfate 90 mcg/actuation 2 puff inhalation Q4 PRN Wheezing 05/12/23 05/12/23 Unknown aerosol inhaler allopurinol 300 mg tablet 300 mg PO DAILY 05/12/23 05/12/23 Unknown ferrous sulfate 325 mg (65 mg 325 mg PO DAILY 05/12/23 05/12/23 Unknown iron) tablet (FeroSul) sildenafil 50 mg tablet 50 mg PO DAILY PRN .. 05/12/23 05/12/23 Unknown warfarin 2 mg tablet 4 mg PO DAILY 05/12/23 05/12/23 Unknown Active Medications Generic Name Dose Route Start Last Admin Trade Name Freq PRN Reason Stop Dose Admin Allopurinol 300 mg 05/12/23 09:00 05/23/23 08:26 Allopurinol 300 Mg Tab PO 06/11/23 08:59 300 mg DAILY STACY Administration Atorvastatin Calcium 40 mg 05/13/23 09:00 05/23/23 08:26 Atorvastatin 40 Mg Tab PO 06/12/23 08:59 40 mg QAM STACY Administration Carvedilol 25 mg 05/19/23 08:00 05/23/23 08:27 Carvedilol 25 Mg Tab PO 06/18/23 07:59 25 mg BIDM STACY Administration Enteral Nutritional Formula 1,000 ml 05/16/23 10:30 05/22/23 08:08 Novasource Renal 2.0 Luke 1000ml Bag NG 06/15/23 10:29 1,000 ml UD STACY Administration Protocol Escitalopram Oxalate 5 mg 05/23/23 09:00 05/23/23 08:25 Escitalopram Oxalate Oral Soln 5 Mg/5 Ml Udp NG 06/22/23 08:59 5 mg QAM STACY Administration Ferrous Sulfate 325 mg 05/12/23 09:00 05/23/23 08:26 Ferrous Sulfate 325 Mg Tab PO 06/11/23 08:59 325 mg DAILY STACY Administration Folic Acid 1 mg 05/17/23 09:00 05/23/23 08:26 Folic Acid 1 Mg Tab PO 06/16/23 08:59 1 mg DAILY STACY Administration Heparin Sodium (Beef Lung) 5 ml 05/19/23 11:06 05/19/23 18:21 Heparin 10 Unit/Ml 5 Ml Flush FLUSH 06/18/23 11:05 5 ml PRN PRN Administration Flush Famotidine 20 mg/ Syringe 5 mls @ 2.5 mls/min 05/14/23 09:00 05/23/23 08:28 IV 06/13/23 08:59 2.5 mls/min DAILY STACY Administration Heparin Sodium/Dextrose 25,000 units in 500 mls @ 43 mls/hr 05/15/23 08:50 05/23/23 06:58 Heparin Sodium/Dextrose IV 06/14/23 08:49 2,150 units/hr .[id number] STACY 43 mls/hr Titration Protocol 2,150 UNITS/HR Cefepime HCl 2,000 mg/ Syringe 20 mls @ 5 mls/min 05/18/23 20:00 05/23/23 08:28 IV 05/27/23 07:59 5 mls/min Q12H STACY Administration Protocol Miconazole Nitrate 1 appln 05/12/23 15:11 05/21/23 12:05 Miconazole Nitrate Powder 85 Gm EXT 06/11/23 15:10 1 appln PRN PRN Administration Affected Skin Folds Prednisone 10 mg 05/15/23 09:00 05/23/23 08:25 Prednisone 10 Mg Tablet PO 05/25/23 08:59 10 mg DAILY STACY Administration Taper Sterile Water 30 ml 05/16/23 10:30 05/23/23 06:32 Tube Feeding Water Flush NG 06/15/23 10:29 30 ml Q4H STACY Administration Thiamine HCl 100 mg 05/18/23 09:00 05/23/23 08:26 Thiamine Hcl 100 Mg Tab NG 06/17/23 08:59 100 mg DAILY STACY Administration Torsemide 20 mg 05/12/23 09:00 05/12/23 09:16 Torsemide 20 Mg Tab PO 06/11/23 08:59 20 mg QAM STACY Administration Verapamil HCl 240 mg 05/12/23 09:00 05/12/23 09:17 Verapamil Hcl 240 Mg Tabcr PO 06/11/23 08:59 240 mg QAM STACY Administration Warfarin Sodium 4 mg 05/12/23 16:00 05/14/23 15:49 Warfarin Sod 4 Mg Tab PO 06/11/23 15:59 Not Given DAILY@[email or web address] [facility] Coding Level of Care Code 41214 CRITICAL CARE 1ST 30-74M Diagnoses CKD (chronic kidney disease) stage 3, GFR 30-59 ml/min N18.30 Stroke I63.9 Slurring of speech R47.81 Hypoxia R09.02 Epigastric abdominal pain R10.13 Eosinophilia D72.19 DVT (deep venous thrombosis) I82.409
--- NOTE | 2023-05-23 13:15 | Communication Note ---
Date of Service: May 23, 2023 We were messaged by the ICU team - pt now awake, answering questions, was deemed to have decision making capacity. He is now agreeable to PEG; daughter working on getting POA transferred to her. - Will plan PEG placement for tomorrow 05/24 - Please stop feeds at midnight tonight - Please stop heparin at midnight tonight - Discussed with ICU team and GI attending Prior to endoscopic evaluation, we appreciate assistance in the management and correction of [place] laboratory elements including the following: Please optimize pt's hemoglobin >7, INR <2, platelets >50,000, potassium levels >3.5 but <5.3, and sodium levels within 5 points of the reference range.
--- NOTE | 2023-05-23 13:41 | Hospitalist Progress Note ---
Date of Service May 23, 2023 Assessment & Plan (1) Acute CVA (cerebrovascular accident): Plan: This is a 57 yo M w/ hypertension,HLD, morbid obesity, chronic diastolic CHF, and ambulatory dysfunction currently wheelchair-bound hx of gout, rheumatoid arthritis, tobacco abuse,chronic back pain, medication non compliance, chronic kidney disease, morbid obesity, obesity hypoventilation syndrome, history of DVT on Coumadin currently living at home is brought in because of strokelike symptoms since around 5 PM he noticed to have slurred speech. Metabolic encephalopathy Acute CVA, [place] Admitted with Slurred speech CT head in ER - negative CTA head and neck not done because of history of significant CHERYL in the recent past Patient on Coumadin and INR therapeutic TNK was not given because of INR therapeutic Patient states he is severely claustrophobic for MRI scan Echo - EF 60 to 65%. Moderate concentric LVH. RV is grossly normal size. RV systolic function is qualitatively normal. Poorly visualized valvular anatomy. Carotid Doppler 1. Mild atherosclerosis of the carotid bulbs without hemodynamically significant stenosis. 2. Normal antegrade vertebral flow bilaterally. Brain MRI: IMPRESSION: Acute/subacute ischemic injury of the lake without evidence of hemorrhagic transformation. 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 Says he had nocturnal study done recently and he does not have results yet. Chronic diastolic CHF (+) edema on Torsemide History of anemia On iron supplements Hemoglobin stable DVT prophylaxis Heparin drip Disposition -awaiting PEG tube placement and possible placement in LTAC Full code Admission and Anticipated Discharge Date Admission Date: May 12, 2023 Subjective 05/23/2023 The patient was seen and examined in ICU He denies any significant symptoms and nonverbal does not have any acute distress He is willing to have PEG tube placement for feeding Review of Systems Review of Systems: All systems reviewed and are unremarkable except as noted below Physical Exam Physical Exam: Lying in bed comfortably Constitutional: well developed, well nourished, + ill appearing and + morbidly obese Eyes: PERRL, conjunctivae normal, anicteric sclerae ENMT: Status post tracheotomy and managed on vent Neck: trachea midline, no thyromegaly Respiratory: no respiratory distress Auscultation: + diminished lung sounds and + crackles (Minimal bibasilar crackles) Cardiovascular: Rate/Rhythm: regular rate and regular rhythm; not tachycardic Heart Sounds: normal S1 and normal S2; no murmur Extremities: + edema (1+ edema bilaterally) Gastrointestinal (Abdomen): Inspection/Auscultation: + abdomen distended and normal bowel sounds Percussion/Palpation: abdomen soft; abdomen nontender Musculoskeletal: No acute arthritis involving any joint Neurologic: Alert and awake. Nonverbal secondary to stroke. Very minimal movement of the right-sided extremities. Complete paralysis of the left-sided extremities Lymphatic: no cervical or axillary lymphadenopathy Results & Data Results & Data Vital Signs (Past 12 Hours) Vital Signs Temp Pulse Resp BP Pulse Ox O2 Del Method O2 Flow Rate 05/23/23 12:00 79 25 H 90 CPAP 05/23/23 12:00 116/70 05/23/23 11:00 78 27 H 90 05/23/23 11:00 113/74 05/23/23 12:00 37.2 C 05/23/23 12:00 05/23/23 11:29 77 26 H 90 05/23/23 10:00 78 25 H 88 L 05/23/23 10:00 113/71 05/23/23 09:00 83 24 90 05/23/23 09:00 107/71 05/23/23 08:00 85 24 93 CPAP 05/23/23 08:00 130/76 05/23/23 07:00 81 22 91 05/23/23 07:00 126/77 05/23/23 08:00 37.4 C 05/23/23 08:30 CPAP 05/23/23 08:00 05/23/23 07:54 84 20 95 05/23/23 06:00 76 22 90 05/23/23 06:00 120/76 05/23/23 05:00 75 22 94 05/23/23 05:00 128/77 05/23/23 04:38 77 22 94 05/23/23 04:00 77 22 94 05/23/23 03:00 80 22 93 05/23/23 03:00 127/74 05/23/23 02:00 76 22 93 05/23/23 02:00 128/79 05/23/23 04:13 37.2 C 05/23/23 04:01 Mechanical Vent 50 05/23/23 03:56 FiO2 05/23/23 12:00 0.4 05/23/23 12:00 05/23/23 11:00 05/23/23 11:00 05/23/23 12:00 05/23/23 12:00 40 05/23/23 11:29 05/23/23 10:00 05/23/23 10:00 05/23/23 09:00 05/23/23 09:00 05/23/23 08:00 0.4 05/23/23 08:00 05/23/23 07:00 05/23/23 07:00 05/23/23 08:00 05/23/23 08:30 0.4 05/23/23 08:00 50 05/23/23 07:54 40 05/23/23 06:00 05/23/23 06:00 05/23/23 05:00 05/23/23 05:00 05/23/23 04:38 50 05/23/23 04:00 05/23/23 03:00 05/23/23 03:00 05/23/23 02:00 05/23/23 02:00 05/23/23 04:13 05/23/23 04:01 05/23/23 03:56 50 Laboratory Results Short CBC 05/23/23 Range/Units 05:35 WBC 8.65 (4.8-10.8) K/ul Hgb 11.7 L (14.0-18.0) g/dl Hct 37.9 L (42.0-52.0) % Plt Count 294 (130-400) K/uL BMP 05/22/23 05/23/23 15:02 05:35 Sodium 136 138 Potassium 4.0 3.7 Chloride 100 100 Carbon Dioxide 30 29 BUN 82 H 85 H Creatinine 2.02 H 2.16 H Glucose 164 H 123 H Calcium 9.7 9.8 Medications Administered Current Inpatient Medications Albuterol (Albuterol 0.083% Nebu Soln 3 Ml Vial) 2.5 mg NEB Q6R PRN; Protocol PRN Reason: Shortness Of Breath Or Wheezing Stop: 06/17/23 21:43 Allopurinol (Allopurinol 300 Mg Tab) 300 mg PO DAILY [facility] Stop: 06/11/23 08:59 Last Admin: 05/23/23 08:26 Dose: 300 mg Atorvastatin Calcium (Atorvastatin 40 Mg Tab) 40 mg PO QAM [facility] Stop: 06/12/23 08:59 Last Admin: 05/23/23 08:26 Dose: 40 mg Carvedilol (Carvedilol 25 Mg Tab) 25 mg PO BIDM [facility] Stop: 06/18/23 07:59 Last Admin: 05/23/23 08:27 Dose: 25 mg Dextrose (Dextrose 50% 50 Ml Syringe) 25 - 50 ml IV UD PRN; Protocol PRN Reason: Hypoglycemia Protocol Stop: 06/17/23 10:59 Enteral Nutritional Formula (Novasource Renal 2.0 Luke 1000ml Bag) 1,000 ml NG UD [facility]; Protocol Stop: 06/15/23 10:29 Last Admin: 05/22/23 08:08 Dose: 1,000 ml Escitalopram Oxalate (Escitalopram Oxalate Oral Soln 5 Mg/5 Ml Udp) [facility] [place] Stop: 06/22/23 08:59 Last Admin: 05/23/23 08:25 Dose: 5 mg Ferrous Sulfate (Ferrous Sulfate 325 Mg Tab) 325 mg PO DAILY [facility] Stop: 06/11/23 08:59 Last Admin: 05/23/23 08:26 Dose: 325 mg Folic Acid (Folic Acid 1 Mg Tab) 1 mg PO DAILY [facility] Stop: 06/16/23 08:59 Last Admin: 05/23/23 08:26 Dose: 1 mg Glucagon (Glucagon For Inj 1 Mg Vial) 1 mg IM UD PRN; Protocol PRN Reason: Hypoglycemia Protocol Stop: 06/17/23 10:59 Glucose (Glucose 40% Gel 15 Gm Tube) 15 - 30 gm PO UD PRN; Protocol PRN Reason: Hypoglycemia Protocol Stop: 06/17/23 10:59 Glucose (Glucose 10 Tab/Tube) 4 - 8 tab PO UD PRN; Protocol PRN Reason: Hypoglycemia Protocol Stop: 06/17/23 10:59 Heparin Sodium (Beef Lung) (Heparin 10 Unit/Ml 5 Ml Flush) 5 ml FLUSH PRN PRN PRN Reason: Flush Stop: 06/18/23 11:05 Last Admin: 05/19/23 18:21 Dose: 5 ml Famotidine 20 mg/ Syringe 5 mls @ 2.5 mls/min IV DAILY [facility] Stop: 06/13/23 08:59 Last Admin: 05/23/23 08:28 Dose: 2.5 mls/min Heparin Sodium/Dextrose (Heparin Sodium/Dextrose) 25,000 units in 500 mls @ 43 mls/hr IV .[id number] [facility]; Protocol Stop: 06/14/23 08:49 Last Titration: 05/23/23 06:58 Dose: 2,150 units/hr, 43 mls/hr Cefepime HCl 2,000 mg/ Syringe 20 mls @ 5 mls/min IV Q12H [facility]; Protocol Stop: 05/27/23 07:59 Last Admin: 05/23/23 08:28 Dose: 5 mls/min Metoprolol Tartrate (Metoprolol Tartrate 1 Mg/Ml Vial) 5 mg IV Q6 PRN PRN Reason: SBP>150, HR>110 Stop: 06/18/23 11:59 Miconazole Nitrate (Miconazole Nitrate Powder 85 Gm) 1 appln EXT PRN PRN PRN Reason: Affected Skin Folds Stop: 06/11/23 15:10 Last Admin: 05/21/23 12:05 Dose: 1 appln Miscellaneous (Carbohydrates For Hypoglycemia ) 15 - 30 gm PO UD PRN PRN Reason: Hypoglycemia Treatment Stop: 06/17/23 10:59 Nitroglycerin (Nitroglycerin Sl 0.4 Mg/Tab Tab) 0.4 mg SL Q5M PRN PRN Reason: Chest Pain Stop: 06/11/23 04:46 Prednisone (Prednisone 10 Mg Tablet) 10 mg PO DAILY [facility]; Taper Stop: 05/25/23 08:59 Last Admin: 05/23/23 08:25 Dose: 10 mg Prednisone (Prednisone 10 Mg Tablet) 10 mg PO DAILY [facility] Stop: 06/24/23 08:59 Sterile Water (Tube Feeding Water Flush) 30 ml NG Q4H [facility] Stop: 06/15/23 10:29 Last Admin: 05/23/23 12:29 Dose: 30 ml Thiamine HCl (Thiamine Hcl 100 Mg Tab) 100 mg NG DAILY [facility] Stop: 06/17/23 08:59 Last Admin: 05/23/23 08:26 Dose: 100 mg Torsemide (Torsemide 20 Mg Tab) 20 mg PO QAM [facility] Stop: 06/11/23 08:59 Last Admin: 05/12/23 09:16 Dose: 20 mg Verapamil HCl (Verapamil Hcl 240 Mg Tabcr) 240 mg PO [facility] Stop: 06/11/23 08:59 Last Admin: 05/12/23 09:17 Dose: 240 mg Warfarin Sodium (Warfarin Sod 4 Mg Tab) 4 mg PO DAILY@1600 [facility] Stop: 06/11/23 15:59 Last Admin: 05/14/23 15:49 Dose: Not Given
[2023-05-24] MEDS: TUBE FEEDING WATER FLUSH NG SCH ×7 (00:17→20:51)
[2023-05-24 04:36] LABS: Hematocrit (blood only) 35.3 % (42.0-52.0); Hemoglobin 11.2 g/dl (14.0-18.0); Mean Corpuscular Hemoglobin 29.9 pg (25.0-34.0); Mean Corpuscular Hgb Conc 31.7 g/dL (32.0-36.0); Mean Corpuscular Volume 94.4 fL (80.0-100.0); Mean Platelet Volume 11.5 fL (9.4-12.4); Nucleated RBC # (auto) 0.04 K/uL (0.00-0.12); Nucleated RBC % (auto) 0.4 %; Platelet Count 293 K/uL (130-400); RDW Coefficient of Variation 16.1 % (11.5-14.5); RDW Standard Deviation 55.2 fL (36.4-46.3); Red Blood Count 3.74 M/uL (4.70-6.10); White Blood Count 9.16 K/ul (4.8-10.8)
[2023-05-24 04:50] LABS: BUN Creatinine Ratio 38.2 (10-20); Calcium 9.6 mg/dl (8.6-10.3); Creatinine Clr Calc Pharmacy 69.5 ml/min; Est GFR (African American) 37.8 ml/min; Est GFR (Non-African American) 32.6 ml/min; Magnesium 1.8 mg/dl (1.7-2.4); Phosphorus 2.4 mg/dl (2.5-4.9); Potassium 3.9 mmol/L (3.5-5.1)
[2023-05-24 05:44] LABS: ALC (manual) 1.65 K/uL (1.2-3.4); ANC (manual) 5.68 K/uL (1.4-6.5); Eosinophils # (manual) 0.37 K/uL (0-0.50); Eosinophils % (manual) 4 %; Lymphocytes # (manual) 1.65 K/uL (1.2-3.4); Lymphocytes % (manual) 18 %; Metamyelocytes # (manual) 0.55 K/uL (0-0); Metamyelocytes % (manual) 6 %; Monocytes # (manual) 0.27 K/uL (0.11-0.59); Monocytes % (manual) 3 %; Myelocytes # (manual) 0.64 K/uL (0-0); Myelocytes % (manual) 7 %; Neutrophils # (manual) 5.68 K/uL (1.40-6.50); Neutrophils % (manual) 62 %; Stomatocytes 1+
[2023-05-24] MEDS ORDERED: POTASSIUM PHOS 3 MMOL/1 ML INFUSION IV STA (06:49)
[2023-05-24] MEDS ORDERED: POTASSIUM PHOSPHATE 15 MMOL in SODIUM CHLORIDE 0.9% 250 ML IV ONE (07:00)
[2023-05-24] MEDS: CEFEPIME 2,000 MG in SYRINGE 0 ML IV SCH ×2 (08:01→20:51)
[2023-05-24] MEDS: FAMOTIDINE 20 MG in SYRINGE 3 ML IV SCH (08:01)
[2023-05-24] MEDS: MAGNESIUM SULFATE / D5W 1 GM/100 ML BAG IV SCH ×2 (08:15→10:30)
--- NOTE | 2023-05-24 09:39 | Anesthesiology Consultation ---
Date of Service May 24, 2023 Assessment & Plan Chart Review Chart Review: Acceptable Risk for Surgery History Surgery Operation Date: 05/24/23 16:45 Proposed Procedures p Esophagogastroduodenoscopy Dr Murray - Harriet Murray, Height/Weight Height: 6 ft 3 in Weight: 200.4 kg Allergies Allergy/AdvReac Type Severity Reaction Status Date / Time Iodinated Contrast Media Allergy Hives Verified 05/12/23 00:10 iodine Allergy Hives Verified 05/12/23 00:10 Medications Home Medications Medication Instructions Recorded Confirmed Last Taken verapamil 240 mg 24 hr 240 mg PO QAM 08/29/22 05/12/23 08/28/22 capsule,extended release carvedilol 12.5 mg tablet 12.5 mg PO BID #60 tabs 10/07/22 05/12/23 Unknown torsemide 20 mg tablet 20 mg PO QAM #30 tabs 10/07/22 05/12/23 Unknown prednisone 10 mg tablet 10 mg PO UD #75 tabs 10/25/22 05/12/23 Unknown albuterol sulfate 90 mcg/actuation 2 puff inhalation Q4 PRN Wheezing 05/12/23 05/12/23 Unknown aerosol inhaler allopurinol 300 mg tablet 300 mg PO DAILY 05/12/23 05/12/23 Unknown ferrous sulfate 325 mg (65 mg 325 mg PO DAILY 05/12/23 05/12/23 Unknown iron) tablet (FeroSul) sildenafil 50 mg tablet 50 mg PO DAILY PRN .. 05/12/23 05/12/23 Unknown warfarin 2 mg tablet 4 mg PO DAILY 05/12/23 05/12/23 Unknown Active Medications Generic Name Dose Route Start Last Admin Trade Name Freq PRN Reason Stop Dose Admin Allopurinol 300 mg 05/12/23 09:00 05/23/23 08:26 Allopurinol 300 Mg Tab PO 06/11/23 08:59 300 mg DAILY [facility] Administration Atorvastatin Calcium 40 mg 05/13/23 09:00 05/23/23 08:26 Atorvastatin 40 Mg Tab PO 06/12/23 08:59 40 mg QAM [facility] Administration Carvedilol 25 mg 05/19/23 08:00 05/23/23 16:32 Carvedilol 25 Mg Tab PO 06/18/23 07:59 25 mg BIDM [facility] Administration Enteral Nutritional Formula 1,000 ml 05/16/23 10:30 05/22/23 08:08 Novasource Renal 2.0 Luke 1000ml Bag NG 06/15/23 10:29 1,000 ml UD [facility] Administration Protocol Escitalopram Oxalate 5 mg 05/23/23 09:00 05/23/23 08:25 Escitalopram Oxalate Oral Soln 5 Mg/5 Ml Udp NG 06/22/23 08:59 5 mg QAM [facility] Administration Ferrous Sulfate 325 mg 05/12/23 09:00 05/23/23 08:26 Ferrous Sulfate 325 Mg Tab PO 06/11/23 08:59 325 mg DAILY [facility] Administration Folic Acid 1 mg 05/17/23 09:00 05/23/23 08:26 Folic Acid 1 Mg Tab PO 06/16/23 08:59 1 mg DAILY [facility] Administration Heparin Sodium (Beef Lung) 5 ml 05/19/23 11:06 05/19/23 18:21 Heparin 10 Unit/Ml 5 Ml Flush FLUSH 06/18/23 11:05 5 ml PRN PRN Administration Flush Famotidine 20 mg/ Syringe 5 mls @ 2.5 mls/min 05/14/23 09:00 05/24/23 08:01 IV 06/13/23 08:59 2.5 mls/min DAILY [facility] Administration Heparin Sodium/Dextrose 25,000 units in 500 mls @ 0 mls/hr 05/15/23 08:50 05/24/23 00:17 Heparin Sodium/Dextrose IV 06/14/23 08:49 0 units/hr .Q0M [facility] 0 mls/hr Titration Protocol 0 UNITS/HR Cefepime HCl 2,000 mg/ Syringe 20 mls @ 5 mls/min 05/18/23 20:00 05/24/23 08:01 IV 05/27/23 07:59 5 mls/min Q12H [facility] Administration Protocol Magnesium Sulfate/Dextrose 1 gm in 100 mls @ 50 mls/hr 05/24/23 07:00 05/24/23 08:15 Magnesium Sulfate / D5w IV 05/24/23 10:59 50 mls/hr Q2H [facility] Administration Miconazole Nitrate 1 appln 05/12/23 15:11 05/21/23 12:05 Miconazole Nitrate Powder 85 Gm EXT 06/11/23 15:10 1 appln PRN PRN Administration Affected Skin Folds Prednisone 10 mg 05/15/23 09:00 05/23/23 08:25 Prednisone 10 Mg Tablet PO 05/25/23 08:59 10 mg DAILY [facility] Administration Taper Sterile Water 30 ml 05/16/23 10:30 05/24/23 05:43 Tube Feeding Water Flush NG 06/15/23 10:29 Not Given Q4H [facility] Thiamine HCl 100 mg 05/18/23 09:00 05/23/23 08:26 Thiamine Hcl 100 Mg Tab NG 06/17/23 08:59 100 mg DAILY [facility] Administration Torsemide 20 mg 05/12/23 09:00 05/12/23 09:16 Torsemide 20 Mg Tab PO 06/11/23 08:59 20 mg QAM [facility] Administration Verapamil HCl 240 mg 05/12/23 09:00 05/12/23 09:17 Verapamil Hcl 240 Mg Tabcr PO 06/11/23 08:59 240 mg QAM [facility] Administration Past Medical History Medical History (Updated 05/24/23 @ 09:57 by Tung De La Vega MD) Acute CVA (cerebrovascular accident) CHERYL (acute kidney injury) recurrent Anemia Bedbound since 11/2021 for unclear causes CKD (chronic kidney disease) stage 3, GFR 30-59 ml/min Depression DVT (deep venous thrombosis) Encephalopathy Gout Morbid obesity Obesity hypoventilation syndrome Past Surgical History Surgical History (Updated 05/24/23 @ 09:57 by Tung De La Vega MD) H/O tracheostomy Social History Smoking Status: Former smoker Do You Dip or Chew Tobacco: No Hx Alcohol Use: No Hx Substance Use: No substance use type: does not use Physical Exam Vital Signs Last Vital Signs Temp 37.5 C 05/24/23 04:00 Pulse 81 05/24/23 08:35 Resp 22 05/24/23 08:35 BP 133/75 05/24/23 06:00 Pulse Ox 90 05/24/23 08:35 O2 Del Method Trach Collar 05/24/23 09:05 O2 Flow Rate 50 05/23/23 04:01 FiO2 50 05/24/23 08:35 Testing Laboratory Results 05/24/23 04:16 05/24/23 04:16 PT 12.4 Seconds (9.0-12.0) H 05/23/23 05:25 INR 1.1 (0.9-1.1) 05/23/23 05:25 APTT 58.1 Seconds (21.0-31.0) H* 05/23/23 05:25 Hemoglobin A1c 6.1 % (4.5-5.6) H 05/13/23 01:41 Urine Color Dark Yellow 05/15/23 16:35 Urine Appearance Turbid (Clear) A 05/15/23 16:35 Urine pH 5.0 (4.5-7.5) 05/15/23 16:35 Ur Specific [place] 1.019 (1.000-1.030) 05/15/23 16:35 Urine Protein Trace (Negative) H 05/15/23 16:35 Urine Glucose (UA) Negative (Negative) 05/15/23 16:35 Urine Ketones Negative (Negative) 05/15/23 16:35 Urine Nitrite Negative (Negative) 05/15/23 16:35 Ur Leukocyte Esterase 2+ (Negative) H 05/15/23 16:35 Urine WBC (Auto) >30 /hpf (0-5) H 05/15/23 16:35 Urine RBC (Auto) 10-30 /hpf (0-4) H 05/15/23 16:35 U Hyaline Cast (Auto) 5-10 /lpf (0-5) H 05/15/23 16:35 U Epithel Cells (Auto) 10-20 /lpf (0-5) H 05/15/23 16:35 Urine Bacteria (Auto) 2+ (Negative) H 05/15/23 16:35 Blood Type O Negative 05/11/23 22:36 Antibody Screen NEGATIVE 05/11/23 22:36 05/16/23 08:16 Aerobic Blood Culture - Final Blood No growth in Aerobic bottle after 5 days. Anaerobic Blood Culture - Final No growth in Anaerobic bottle after 5 days. 05/16/23 08:01 Aerobic Blood Culture - Final Blood No growth in Aerobic bottle after 5 days. Anaerobic Blood Culture - Final 05/15/23 16:35 Urine Culture - Final Urine,Straight Cath Pseudomonas aeruginosa 05/11/23 22:36 Aerobic Blood Culture - Final Blood No growth in Aerobic bottle after 5 days. Anaerobic Blood Culture - Final No growth in Anaerobic bottle after 5 days. 05/11/23 22:36 Aerobic Blood Culture - Final Blood No growth in Aerobic bottle after 5 days. Anaerobic Blood Culture - Final No growth in Anaerobic bottle after 5 days. 05/24/23 05/24/23 07:54 00:01 POC Glucose 94 118 H Electrocardiogram Date: 05/14/23 Findings: + NSR @ (100) and + RBBB (incomplete) possible Lateral infarct; inferior infarct Chest X-Ray Date: 05/12/23 Findings: + atelectasis (left basilar opacity suggestive atelectasis) and + cardiomegaly (stable) Echocardiogram Date: 05/12/23 EF: 60-65% LV Function: normal Other Findings: + LVH (moderate concentric; ) Valvular Disease: + no significant valvular disease
[2023-05-24 10:07] LABS: iSTAT Allen Test Pass; iSTAT Art Bld Gas pCO2 Correct 44 mmHg (35-46); iSTAT Art Bld Gas pH Corrected 7.402 (7.35-7.45); iSTAT Arterial Blood Gas HCO3 27 meg/L (19-24); iSTAT Arterial Blood Gas pCO2 44 mmHg (35-46); iSTAT Arterial Blood Gas pO2 66 mmHg (80-95); iSTAT Arterial Blood Gas pO2 C 66; iSTAT Carbon Dioxide 28 mmol/L (24-31); iSTAT FiO2 45 %; iSTAT Hematocrit 35 % (42-52); iSTAT Hemoglobin 11.9 g/dl (14.0-18.0); iSTAT Potassium 4.3 mmol/L (3.3-5.0); iSTAT Site R Radial; iSTAT Sodium 140 mmol/L (135-144)
--- NOTE | 2023-05-24 11:18 | Nephrology Progress Note ---
Date of Service May 24, 2023 Assessment & Plan Admission and Anticipated Discharge Date Admission Date: May 12, 2023 Subjective Assessment & Plan (1) CHERYL (acute kidney injury): Plan: Further improving nonoliguric stage II acute kidney injury likely ischemic [facility] multifactorial. Baseline creatinine 1.7-1.9 in pt quite prone to CHERYL based on previous admissions' renal profile. did have single 20 mg torsemide 05/12. presented 05/11 w/ creatinine 1.5, then rapidly up to 2.6 peak creatinine 4.4 on 05/15 from [facility]. Admission UA unremarkable for inflammation; no eosinophilia currently or as of spring. current creat is in the low 2's so about baseline. Follow Daily BMP. Will follow peripherally. (2) CKD (chronic kidney disease) stage 3, GFR 30-59 ml/min: Plan: baseline creatinine 1.7-1.9 as OP in 2022. Creat now around 2 (3) Stroke: Plan: per primary service and neuro Subjective Still critical. for peg tube placement today. Ongoing Discussion about level of care. Unresponsive Review of Systems Review of Systems: Unobtainable due to reduced consciousness Physical Exam Constitutional: well developed, well nourished and + morbidly obese; no acute distress Eyes: EOM intact bilaterally ENMT: Ears: no external ear abnormality Nose: no external nose abnormality Mouth: + dry oral mucous membranes Neck: + tracheostomy present; no nuchal rigidity Respiratory: normal respiratory effort Auscultation: + diminished lung sounds Cardiovascular: Rate/Rhythm: regular rate and regular rhythm Extremities: no edema Gastrointestinal (Abdomen): Inspection/Auscultation: normal bowel sounds Percussion/Palpation: abdomen soft; abdomen nontender Musculoskeletal: Extremities: + abnormal strength Skin: no rashes, warm and dry Results & Data Vital Signs (Past 12 Hours) Vital Signs Temp Pulse Pulse Resp BP BP Pulse Ox 05/24/23 10:48 36.6 C 80 22 123/69 95 05/24/23 10:29 81 24 97 05/24/23 09:05 05/24/23 08:00 05/24/23 08:35 81 22 90 05/24/23 06:00 76 22 133/75 91 05/24/23 05:00 75 22 127/73 91 05/24/23 04:00 37.5 C 74 22 123/74 91 05/24/23 04:00 05/24/23 03:00 73 22 113/65 93 05/24/23 02:00 72 22 135/76 92 05/24/23 02:19 74 22 90 05/24/23 01:00 73 22 111/66 91 05/24/23 00:00 37 C 83 22 134/73 93 05/24/23 00:00 O2 Del Method FiO2 05/24/23 10:48 Mechanical Vent 100 05/24/23 10:29 100 05/24/23 09:05 Trach Collar 05/24/23 08:00 50 05/24/23 08:35 50 05/24/23 06:00 Mechanical Vent 50 05/24/23 05:00 Mechanical Vent 50 05/24/23 04:00 Mechanical Vent 50 05/24/23 04:00 50 05/24/23 03:00 Mechanical Vent 50 05/24/23 02:00 Mechanical Vent 40 05/24/23 02:19 50 05/24/23 01:00 Mechanical Vent 40 05/24/23 00:00 Mechanical Vent 40 05/24/23 00:00 40
--- NOTE | 2023-05-24 12:51 | Hospitalist Progress Note ---
Date of Service May 24, 2023 Assessment & Plan (1) Acute CVA (cerebrovascular accident): Plan: This is a 57 yo M w/ hypertension,HLD, morbid obesity, chronic diastolic CHF, and ambulatory dysfunction currently wheelchair-bound hx of gout, rheumatoid arthritis, tobacco abuse,chronic back pain, medication non compliance, chronic kidney disease, morbid obesity, obesity hypoventilation syndrome, history of DVT on Coumadin currently living at home is brought in because of strokelike symptoms since around 5 PM he noticed to have slurred speech. Metabolic encephalopathy Acute CVA, Laek Admitted with Slurred speech CT head in ER - negative CTA head and neck not done because of history of significant CHERYL in the recent past Patient on Coumadin and INR therapeutic TNK was not given because of INR therapeutic Patient states he is severely claustrophobic for MRI scan Echo - EF 60 to 65%. Moderate concentric LVH. RV is grossly normal size. RV systolic function is qualitatively normal. Poorly visualized valvular anatomy. Carotid Doppler 1. Mild atherosclerosis of the carotid bulbs without hemodynamically significant stenosis. 2. Normal antegrade vertebral flow bilaterally. Brain MRI: IMPRESSION: Acute/subacute ischemic injury of the lake without evidence of hemorrhagic transformation. 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 Vent Mgt per ICU- currently on CPAP setting Nutritional support through nasogastric tube so far Appreciate GI input and recommendation for PEG tube placement Will need placement in LTAC Remains stable on mechanical vent via tracheostomy tube Will need to be placed in LTAC Nutritional support Appreciate GI input and recommendation Will have PEG tube placement today Acute Kidney Injury Crea 4.2 to 3.2 to 2s Nephro on board on Torsemide Creatinine remains stable at 2.16 Creatinine remains at the baseline and nephrology signed off Hypertension on Carvedilol Blood pressure is controlled History DVT on heparin drip history of gout Allopurinol Rheumatoid arthritis on Prednisone 10mg Morbid obesity Obesity hypoventilation syndrome Not using BiPAP at home. Says he had nocturnal study done recently and he does not have results yet. Chronic diastolic CHF (+) edema on Torsemide History of anemia On iron supplements Hemoglobin stable DVT prophylaxis Heparin drip Disposition -awaiting PEG tube placement and possible placement in LTAC Full code Admission and Anticipated Discharge Date Admission Date: May 12, 2023 Subjective 05/23/2023 The patient was seen and examined in ICU He denies any significant symptoms and nonverbal does not have any acute distress He is willing to have PEG tube placement for feeding 05/24/2023 The patient was seen and examined in ICU He remains stable and is nonverbal Status post tracheotomy and on mechanical vent support Will have PEG tube placement today Review of Systems Review of Systems: All systems reviewed and are unremarkable except as noted below Physical Exam Physical Exam: Lying in bed comfortably Constitutional: well developed, well nourished, + ill appearing and + morbidly obese Eyes: PERRL, conjunctivae normal, anicteric sclerae Neck: trachea midline, no thyromegaly Respiratory: no respiratory distress Auscultation: + diminished lung sounds and + crackles (Minimal bibasilar crackles) Cardiovascular: Rate/Rhythm: regular rate and regular rhythm; not tachycardic Heart Sounds: normal S1 and normal S2; no murmur Extremities: + edema (1+ edema bilaterally) Gastrointestinal (Abdomen): Inspection/Auscultation: + abdomen distended and normal bowel sounds Percussion/Palpation: abdomen soft; abdomen nontender Neurologic: Alert and awake. Nonverbal. Minimal movement in the right excited extremities. Barely any movement of the left side Lymphatic: no cervical or axillary lymphadenopathy Results & Data Results & Data Vital Signs (Past 12 Hours) Vital Signs Temp Pulse Pulse Resp BP BP Pulse Ox 05/24/23 12:00 79 22 93 05/24/23 12:00 115/69 05/24/23 11:00 78 22 95 05/24/23 11:00 112/68 05/24/23 10:00 78 22 92 05/24/23 10:00 123/69 05/24/23 09:00 80 23 90 05/24/23 09:00 123/68 05/24/23 08:00 79 22 89 L 05/24/23 08:00 120/72 05/24/23 07:00 82 22 92 05/24/23 07:00 115/75 05/24/23 06:00 68 22 92 05/24/23 12:14 78 18 115/69 95 05/24/23 09:00 36.6 C 74 22 126/69 94 05/24/23 12:00 05/24/23 07:15 76 05/24/23 10:48 36.6 C 80 22 123/69 95 05/24/23 10:29 81 24 97 08/31/23 09:05 05/24/23 08:00 05/24/23 08:35 81 22 90 05/24/23 06:00 76 22 133/75 91 05/24/23 05:00 75 22 127/73 91 05/24/23 04:00 37.5 C 74 22 123/74 91 05/24/23 04:00 05/24/23 03:00 73 22 113/65 93 05/24/23 02:00 72 22 135/76 92 05/24/23 02:19 74 22 90 05/24/23 01:00 73 22 111/66 91 O2 Del Method FiO2 05/24/23 12:00 05/24/23 12:00 05/24/23 11:00 05/24/23 11:00 05/24/23 10:00 05/24/23 10:00 05/24/23 09:00 05/24/23 09:00 05/24/23 08:00 05/24/23 08:00 05/24/23 07:00 05/24/23 07:00 05/24/23 06:00 05/24/23 12:14 Mechanical Vent 100 05/24/23 09:00 Mechanical Vent 50 05/24/23 12:00 100 05/24/23 07:15 05/24/23 10:48 Mechanical Vent 100 05/24/23 10:29 100 05/24/23 09:05 Trach Collar 05/24/23 08:00 50 05/24/23 08:35 50 05/24/23 06:00 Mechanical Vent 50 05/24/23 05:00 Mechanical Vent 50 05/24/23 04:00 Mechanical Vent 50 05/24/23 04:00 50 05/24/23 03:00 Mechanical Vent 50 05/24/23 02:00 Mechanical Vent 40 05/24/23 02:19 50 05/24/23 01:00 Mechanical Vent 40 Laboratory Results Short CBC 05/24/23 Range/Units 04:16 WBC 9.16 (4.8-10.8) K/ul Hgb 11.2 L (14.0-18.0) g/dl Hct 35.3 L (42.0-52.0) % Plt Count 293 (130-400) K/uL BMP 05/24/23 04:16 Sodium 136 Potassium 3.9 Chloride 100 Carbon Dioxide 30 BUN 83 H Creatinine 2.17 H Glucose 89 Calcium 9.6 Medications Administered Current Inpatient Medications Albuterol (Albuterol 0.083% Nebu Soln 3 Ml Vial) 2.5 mg NEB Q6R PRN; Protocol PRN Reason: Shortness Of Breath Or Wheezing Stop: 06/17/23 21:43 Allopurinol (Allopurinol 300 Mg Tab) 300 mg PO DAILY STACY Stop: 06/11/23 08:59 Last Admin: 05/23/23 08:26 Dose: 300 mg Atorvastatin Calcium (Atorvastatin 40 Mg Tab) 40 mg PO QAM STACY Stop: 06/12/23 08:59 Last Admin: 05/23/23 08:26 Dose: 40 mg Carvedilol (Carvedilol 25 Mg Tab) 25 mg PO BIDM [facility] Stop: 06/18/23 07:59 Last Admin: 05/23/23 16:32 Dose: 25 mg Dextrose (Dextrose 50% 50 Ml Syringe) 25 - 50 ml IV UD PRN; Protocol PRN Reason: Hypoglycemia Protocol Stop: 06/17/23 10:59 Enteral Nutritional Formula (Novasource Renal 2.0 Luke 1000ml Bag) 1,000 ml NG UD STACY; Protocol Stop: 06/15/23 10:29 Last Admin: 05/22/23 08:08 Dose: 1,000 ml Escitalopram Oxalate (Escitalopram Oxalate Oral Soln 5 Mg/5 Ml Udp) 5 mg NG QAM [facility] Stop: 06/22/23 08:59 Last Admin: 05/23/23 08:25 Dose: 5 mg Ferrous Sulfate (Ferrous Sulfate 325 Mg Tab) 325 mg PO DAILY STACY Stop: 06/11/23 08:59 Last Admin: 05/23/23 08:26 Dose: 325 mg Folic Acid (Folic Acid 1 Mg Tab) 1 mg PO DAILY STACY Stop: 06/16/23 08:59 Last Admin: 05/23/23 08:26 Dose: 1 mg Glucagon (Glucagon For Inj 1 Mg Vial) 1 mg IM UD PRN; Protocol PRN Reason: Hypoglycemia Protocol Stop: 06/17/23 10:59 Glucose (Glucose 40% Gel 15 Gm Tube) 15 - 30 gm PO UD PRN; Protocol PRN Reason: Hypoglycemia Protocol Stop: 06/17/23 10:59 Glucose (Glucose 10 Tab/Tube) 4 - 8 tab PO UD PRN; Protocol PRN Reason: Hypoglycemia Protocol Stop: 06/17/23 10:59 Heparin Sodium (Beef Lung) (Heparin 10 Unit/Ml 5 Ml Flush) 5 ml FLUSH PRN PRN PRN Reason: Flush Stop: 06/18/23 11:05 Last Admin: 05/19/23 18:21 Dose: 5 ml Famotidine 20 mg/ Syringe 5 mls @ 2.5 mls/min IV DAILY STACY Stop: 06/13/23 08:59 Last Admin: 05/24/23 08:01 Dose: 2.5 mls/min Heparin Sodium/Dextrose (Heparin Sodium/Dextrose) 25,000 units in 500 mls @ 0 mls/hr IV .Q0M STACY; Protocol Stop: 06/14/23 08:49 Last Titration: 05/24/23 00:17 Dose: 0 units/hr, 0 mls/hr Cefepime HCl 2,000 mg/ Syringe 20 mls @ 5 mls/min IV Q12H STACY; Protocol Stop: 05/27/23 07:59 Last Admin: 05/24/23 08:01 Dose: 5 mls/min Metoprolol Tartrate (Metoprolol Tartrate 1 Mg/Ml Vial) 5 mg IV Q6 PRN PRN Reason: SBP>150, HR>110 Stop: 06/18/23 11:59 Miconazole Nitrate (Miconazole Nitrate Powder 85 Gm) 1 appln EXT PRN PRN PRN Reason: Affected Skin Folds Stop: 06/11/23 15:10 Last Admin: 05/21/23 12:05 Dose: 1 appln Miscellaneous (Carbohydrates For Hypoglycemia ) 15 - 30 gm PO UD PRN PRN Reason: Hypoglycemia Treatment Stop: 06/17/23 10:59 Nitroglycerin (Nitroglycerin Sl 0.4 Mg/Tab Tab) 0.4 mg SL Q5M PRN PRN Reason: Chest Pain Stop: 06/11/23 04:46 Prednisone (Prednisone 10 Mg Tablet) 10 mg PO DAILY STACY; Taper Stop: 05/25/23 08:59 Last Admin: 05/23/23 08:25 Dose: 10 mg Prednisone (Prednisone 10 Mg Tablet) 10 mg PO DAILY STACY Stop: 06/24/23 08:59 Sterile Water (Tube Feeding Water Flush) 30 ml NG Q4H STACY Stop: 06/15/23 10:29 Last Admin: 05/24/23 11:22 Dose: Not Given Thiamine HCl (Thiamine Hcl 100 Mg Tab) 100 mg NG DAILY [facility] Stop: 06/17/23 08:59 Last Admin: 05/23/23 08:26 Dose: 100 mg Torsemide (Torsemide 20 Mg Tab) 20 mg PO QAM [facility] Stop: 06/11/23 08:59 Last Admin: 05/12/23 09:16 Dose: 20 mg Verapamil HCl (Verapamil Hcl 240 Mg Tabcr) 240 mg PO QAM [facility] Stop: 06/11/23 08:59 Last Admin: 05/12/23 09:17 Dose: 240 mg
--- NOTE | 2023-05-24 13:12 | History & Physical Report ---
Date of Service May 24, 2023 Assessment & Plan (1) Dysphagia due to recent cerebrovascular accident: Plan: EGD and PEG placement in the OR Admission and Anticipated Discharge Date Admission Date: May 12, 2023 History of Present Illness Chief Complaint: dysphagia following CVA Primary Care Provider: King Holcomb DO dysphagia following CVA Allergies Allergy/AdvReac Type Severity Reaction Status Date / Time Iodinated Contrast Media Allergy Hives Verified 05/12/23 00:10 iodine Allergy Hives Verified 05/12/23 00:10 Home Medications Medication Instructions Recorded Confirmed Type verapamil 240 mg 24 hr 240 mg PO QAM 08/29/22 05/12/23 History capsule,extended release carvedilol 12.5 mg tablet 12.5 mg PO BID #60 tabs 10/07/22 05/12/23 Rx torsemide 20 mg tablet 20 mg PO QAM #30 tabs 10/07/22 05/12/23 Rx prednisone 10 mg tablet 10 mg PO UD #75 tabs 10/25/22 05/12/23 Rx albuterol sulfate 90 mcg/actuation 2 puff inhalation Q4 PRN Wheezing 05/12/23 05/12/23 History aerosol inhaler allopurinol 300 mg tablet 300 mg PO DAILY 05/12/23 05/12/23 History ferrous sulfate 325 mg (65 mg 325 mg PO DAILY 05/12/23 05/12/23 History iron) tablet (FeroSul) sildenafil 50 mg tablet 50 mg PO DAILY PRN .. 05/12/23 05/12/23 History warfarin 2 mg tablet 4 mg PO DAILY 05/12/23 05/12/23 History Past Med/Surg History Medical History (Updated 05/24/23 @ 13:08 by Harriet Murray DO) Acute CVA (cerebrovascular accident) CHERYL (acute kidney injury) recurrent Anemia Bedbound since 11/2021 for unclear causes CKD (chronic kidney disease) stage 3, GFR 30-59 ml/min Depression DVT (deep venous thrombosis) Encephalopathy Gout Morbid obesity Obesity hypoventilation syndrome Surgical History (Updated 05/24/23 @ 09:57 by Tung De La Vega MD) H/O tracheostomy Social History Smoking Status: Former smoker Tobacco Type: Cigarettes and E-cigarettes / Vaping Do You Dip or Chew Tobacco: No; Hx Alcohol Use: No Hx Substance Use: No Preferred Language: British Communication Ability: Impaired Jig Builder Required: No Beliefs That Will Affect Care: None Current Living Situation: Spouse Other Information That Helps Us Care for You: No Feels Safe at Home: Yes Safety Concerns: Feels Safe At This Time Assistive Devices: Scooter/Electric Scooter Results & Data Vital Signs (Past 12 Hours) Vital Signs Temp Pulse Pulse Resp BP BP Pulse Ox 05/24/23 12:00 79 22 93 05/24/23 12:00 115/69 05/24/23 11:00 78 22 95 05/24/23 11:00 112/68 05/24/23 10:00 78 22 92 05/24/23 10:00 123/69 05/24/23 09:00 80 23 90 05/24/23 09:00 123/68 05/24/23 08:00 79 22 89 L 05/24/23 08:00 120/72 05/24/23 07:00 82 22 92 05/24/23 07:00 115/75 05/24/23 06:00 68 22 92 05/24/23 12:14 78 18 115/69 95 05/24/23 09:00 36.6 C 74 22 126/69 94 05/24/23 12:00 05/24/23 07:15 76 05/24/23 10:48 36.6 C 80 22 123/69 95 05/24/23 10:29 81 24 97 05/24/23 09:05 05/24/23 08:00 05/24/23 08:35 81 22 90 05/24/23 06:00 76 22 133/75 91 05/24/23 05:00 75 22 127/73 91 05/24/23 04:00 37.5 C 74 22 123/74 91 05/24/23 04:00 05/24/23 03:00 73 22 113/65 93 05/24/23 02:00 72 22 135/76 92 05/24/23 02:19 74 22 90 O2 Del Method FiO2 05/24/23 12:00 05/24/23 12:00 05/24/23 11:00 05/24/23 11:00 05/24/23 10:00 05/24/23 10:00 05/24/23 09:00 05/24/23 09:00 05/24/23 08:00 05/24/23 08:00 05/24/23 07:00 05/24/23 07:00 05/24/23 06:00 05/24/23 12:14 Mechanical Vent 100 05/24/23 09:00 Mechanical Vent 50 05/24/23 12:00 100 05/24/23 07:15 05/24/23 10:48 Mechanical Vent 100 05/24/23 10:29 100 05/24/23 09:05 Trach Collar 05/24/23 08:00 50 05/24/23 08:35 50 05/24/23 06:00 Mechanical Vent 50 05/24/23 05:00 Mechanical Vent 50 05/24/23 04:00 Mechanical Vent 50 05/24/23 04:00 50 05/24/23 03:00 Mechanical Vent 50 05/24/23 02:00 Mechanical Vent 40 05/24/23 02:19 50 Code Status & VTE Plan VTE Prophylaxis Plan VTE Prophylaxis will be ordered: Yes
--- NOTE | 2023-05-24 13:57 | GI REPORT ---
Patient Name: Judson Bowie Procedure Date: 05/24/2023 1:04 PM Date of : 1965 Admit Type: Inpatient Age: 57 Gender: Male Attending MD: Harriet Murray DO, Procedure: Upper GI endoscopy Providers: Harriet Murray DO Referring MD: Referred Self Indications: Dysphagia, Place PEG due to dysphagia, Place PEG due to impaired swallowing, Place PEG because patient is unable to eat due to stroke (CVA) Medicines: Monitored Anesthesia Care; (received abx in the ICU) Complications: No immediate complications. Estimated blood loss: Minimal. Estimated Blood Loss: Estimated blood loss was minimal. Procedure: Pre-Anesthesia Assessment: - Prior to the procedure, a History and Physical was performed, and patient medications, allergies and sensitivities were reviewed. The patient's tolerance of previous anesthesia was reviewed. - The risks and benefits of the procedure and the sedation options and risks were discussed with the patient. All questions were answered and informed consent was obtained. - Patient identification and proposed procedure were verified prior to the procedure by the physician and the nurse. The procedure was verified in the pre-procedure area in the procedure room. - Mental Status Examination: alert and oriented. Airway Examination: tracheostomy via ventilator. Respiratory Examination: clear to auscultation. CV Examination: normal. Abdominal Examination: bowel sounds present, abdomen soft and non-tender, no masses or organomegaly noted. - ASA Grade Assessment: IV - A patient with severe systemic disease that is a constant threat to life. After obtaining informed consent, the endoscope was passed under direct vision. Throughout the procedure, the patient's blood pressure, pulse, and oxygen saturations were monitored continuously. The Endoscope was introduced through the mouth, and advanced to the second part of duodenum. The upper GI endoscopy was accomplished without difficulty. The patient tolerated the procedure well. Findings: The esophagus was normal. The entire examined stomach was normal. The patient was placed in the supine position for PEG placement. The stomach was insufflated to appose gastric and abdominal guerra. A site was located in the body of the stomach with good transillumination and manual external pressure for placement. The abdominal wall was marked and prepped in a sterile manner. The area was anesthetized with 4 mL of 1% lidocaine. The trocar needle was introduced through the abdominal wall and into the stomach under direct endoscopic view. A snare was introduced through the endoscope and opened in the gastric lumen. The guide wire was passed through the trocar and into the open snare. The snare was closed around the guide wire. The endoscope and snare were removed, pulling the wire out through the mouth. A skin incision was made at the site of needle insertion. The externally removable 24 Fr Bard and 20 Fr Chuck-Cook gastrostomy tube was lubricated. The G-tube was tied to the guide wire and pulled through the mouth and into the stomach. The trocar needle was removed, and the gastrostomy tube was pulled out from the stomach through the skin. The external bumper was attached to the gastrostomy tube, and the tube was cut to remove the guide wire. The final position of the gastrostomy tube was confirmed by relook endoscopy, and skin marking noted to be 4 cm at the external bumper. The final tension and compression of the abdominal wall by the PEG tube and external bumper were checked and revealed that the bumper was loose and lightly touching the skin. The feeding tube was capped, and the tube site cleaned and dressed. Estimated blood loss was minimal. The examined duodenum was normal. Impression: - Normal esophagus. - Normal stomach. - Normal examined duodenum. - An externally removable PEG placement was successfully completed. - No specimens collected. Recommendation: - Please follow the post-PEG recommendations including: Nutrition consult for formula and volume, change dressing on top of bumper daily, may use PEG today for meds and water, may use PEG tomorrow for feedings, flush PEG daily with 60 ml water, antibiotic ointment to site and clean site with soap and water daily and dry thoroughly. - Return patient to ICU for ongoing care. Harriet Murray D.O. Harriet Murray DO 05/24/2023 1:56:54 PM This report has been signed electronically. Note Initiated On: 05/24/2023 1:04 PM Number of Addenda: 0 I attest to the content of the Intraoperative Record and orders documented therein, exceptions below {[id number]}
[2023-05-24] MEDS: allopurinoL 300 MG TAB PO SCH (15:25)
[2023-05-24] MEDS: predniSONE 10 MG TABLET PO SCH (15:25)
[2023-05-24] MEDS: ATORVASTATIN 40 MG TAB PO SCH (15:26)
[2023-05-24] MEDS: FERROUS SULFATE 325 MG TAB PO SCH (15:26)
[2023-05-24] MEDS: carvediloL 25 MG TAB PO SCH ×2 (15:26→15:56)
[2023-05-24] MEDS: THIAMINE HCL 100 MG TAB NG SCH (15:27)
[2023-05-24] MEDS: ESCITALOPRAM OXALATE ORAL SOLN 5 MG/5 ML UDP NG SCH (15:27)
[2023-05-24] MEDS: FOLIC ACID 1 MG TAB PO SCH (15:28)
--- NOTE | 2023-05-24 16:44 | Critical Care Progress Note ---
Date of Service May 24, 2023 Assessment & Plan (1) CKD (chronic kidney disease) stage 3, GFR 30-59 ml/min: (2) Stroke: (3) Slurring of speech: (4) Hypoxia: (5) Epigastric abdominal pain: (6) Eosinophilia: (7) DVT (deep venous thrombosis): Plan Reason Critically Ill: 57 YOM admitted for stroke like symptoms currently with worsening of aphasia, left sided weakness and tachypnea on BiPAP with concern for respiratory failure. 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 She is still deciding on POA. -Received PEG placement Brain MRI 05/18/2023 acute/subacute injury of the lake without evidence of hemorrhagic transformation. -TSH, sodium, calcium, glucose within normal limit on 05/15/2023 -Follow-up autoimmune work-up -ESR and CRP are elevated for the patient which is nonspecific 2D echo 05/12/2023: EF 60-65%, moderate concentric LVH, RV systolic function normal Neurology on board Cardiac -HTN, HLD - High Dose statin therapy - 40mg Atorvastatin Respiratory -Acute on Chronic Respiratory failure, Obesity Hypoventilation syndrome -- Trach dependent respiratory failure Trach size 8 XLT proximal placed by Dr. Dubon 05/17/2023 -serial CXR'S -Continue pulmonary hygiene - continue to place patient on CPAP mode and eventually transition to trach collar during the day and ventilator mode settings of assist-control nocturnally. GI -Morbid Obesity - no acute needs RENAL/LYTES - CHERYL on CKD --> improving -Monitor BUNs/creatinine which is improving with creatinine of 2.17 today -Avoid nephrotoxic medications - Nephrology on board -CHERYL-Stage II - We will follow creatinine. Overall serum creatinine and renal function has improved - No acute need - Starks to gravity ENDO - No acute needs - HGB A1C 5.5 range -Continue with ICU hypoglycemia protocol HEME -Hx of Eosinophilia on chronic prednisone, HX of DVT History of eosinophil count as high as 3400 10/17/2022 - Follows with Allergy- on steroid taper -On prednisone taper since 04/28/2023. Was started on 40 mg and was supposed to decrease by 10 mg every week. -- History of DVT On chronic warfarin follow daily INR to goal 2-2.5 -- Now with PEG tube placement will resume patient's Coumadin for anticoagulation and remove heparin drip and follow PTT/INR ID - -- Pseudomonas pansensitive in the urine Started on Rocephin 05/15/2023 --> changed to cefepime 05/17/2023, will continue for 10 days -Depression - seen by Psychiatry - Mark --Prophylaxis VTE: Heparin drip GI: Pepcid Lines: Peripheral Diet: Tube feeds-tolerating well Plan: In/out: 2301mL/ urine output 1725ml Chest x-ray from today shows trach 7 cm above the onesimo. Currently has size 8 XLT-P. Patient getting good volumes. He might need Brovana given his thick neck Try pressure support today. If he does well today then tomorrow we can try tra ch collar Continue with vent nightly Potassium being replaced Continue diuresis Overall prognosis is poor Patient will need long-term placement and PEG tube placement in future. This has been discussed with his daughter, Deb, who is deciding to take POA responsibility from patient's . Discussion on rounds as to who patient's POA will be since his wants divorce, will speak have social service manager speak to father about taking POA I have personally spent 43 minutes of critical care time in the direct management of this patient today on 05/24/2023. This is a life/limb threatening event. This includes time spent evaluating patient, direct bedside care, chart review, placing orders, interpretation of diagnostic studies, discussion with consultants, patient, and family members, as well as other required patient management activities. This time is exclusive of all separately billable procedures, and teaching time and separate from and in addition to any other critical care service time. Patient has been accepted by LTAC facility [facility] with transfer eminent in the next 24 to 36 hours. Please note the above document was generated using voice recognition software. It may contain grammatical, syntax or spelling errors. Admission and Anticipated Discharge Date Admission Date: May 12, 2023 Subjective Patient did undergo PEG tube placement earlier today without incident, will resume enteral feedings and transition IV heparin to DOAC. Documentation and paperwork has been filled out for LTAC of which transfer is impending to [facility] within the next 24 to 36 hours. No acute changes overnight or early this morning. Discussion with the patient yesterday in regards to his CODE STATUS with his daughter, Deb over video chat was to continue full code. Review of Systems Review of Systems: All systems reviewed & are unremarkable except as noted in Subjective Physical Exam Constitutional: WD/WN, vitals as above Eyes: PERRL, conjunctivae normal, anicteric sclerae ENMT: external ear and nose normal, oropharynx normal Neck: trachea midline, no thyromegaly Respiratory: normal respiratory effort, lungs clear to auscultation Cardiovascular: Rate/Rhythm: regular rate and regular rhythm Gastrointestinal (Abdomen): normal bowel sounds, soft, nontender, no he patosplenomegaly Musculoskeletal: no cyanosis or clubbing, extremities motor strength 5/5 Skin: no rashes, warm and dry Neurologic: patellar DTR's 2+ bilat, sensation intact and PERRL, EOMI, accommodation nl, no face palsy, no dysarthria Psychiatric: Orientation: alert Results & Data Results & Data Vital Signs (Past 12 Hours) Vital Signs Temp Pulse Pulse Resp BP BP Pulse Ox 05/24/23 16:00 05/24/23 16:00 73 22 90 05/24/23 16:00 113/73 05/24/23 15:50 116/67 05/24/23 15:50 72 22 90 05/24/23 15:40 74 22 89 L 05/24/23 15:40 119/66 05/24/23 15:30 75 22 89 L 05/24/23 15:30 124/71 05/24/23 15:20 111/68 05/24/23 15:20 73 22 89 L 05/24/23 15:10 121/69 05/24/23 15:10 75 22 89 L 05/24/23 15:00 76 22 89 L 05/24/23 15:00 128/72 05/24/23 14:50 120/68 05/24/23 14:50 75 22 90 05/24/23 14:40 121/66 08/31/23 14:40 78 22 91 05/24/23 14:30 119/66 05/24/23 14:30 78 23 91 05/24/23 14:20 123/67 05/24/23 14:20 78 20 91 05/24/23 14:10 120/68 05/24/23 14:10 76 22 92 05/24/23 14:00 76 22 97 05/24/23 14:00 111/60 05/24/23 13:57 80 20 94 05/24/23 13:57 103/58 L 05/24/23 13:45 109/58 L 05/24/23 13:45 69 15 95 05/24/23 13:43 69 16 94 05/24/23 13:43 86/63 L 05/24/23 13:40 100/54 L 05/24/23 13:40 73 12 94 05/24/23 13:38 75/44 L 05/24/23 13:38 75 6 L 98 05/24/23 13:35 78 8 L 98 05/24/23 13:35 91/47 L 05/24/23 13:33 81 8 L 98 05/24/23 13:33 99/58 L 05/24/23 13:30 85 17 95 05/24/23 13:30 120/72 05/24/23 13:28 77 11 L 94 05/24/23 13:28 111/58 L 05/24/23 13:25 79 24 94 05/24/23 13:25 125/75 05/24/23 13:25 125/75 05/24/23 13:23 82 17 96 05/24/23 13:23 128/82 05/24/23 13:00 77 22 91 05/24/23 13:00 124/78 05/24/23 14:16 22 05/24/23 13:12 80 22 125/75 94 05/24/23 12:00 79 22 93 05/24/23 12:00 115/69 05/24/23 11:00 78 22 95 05/24/23 11:00 112/68 05/24/23 10:00 78 22 92 05/24/23 10:00 123/69 05/24/23 09:00 80 23 90 05/24/23 09:00 123/68 05/24/23 08:00 79 22 89 L 05/24/23 08:00 120/72 05/24/23 07:00 82 22 92 05/24/23 07:00 115/75 05/24/23 06:00 68 22 92 05/24/23 12:14 78 18 115/69 95 05/24/23 09:00 36.6 C 74 22 126/69 94 05/24/23 12:00 05/24/23 07:15 76 05/24/23 10:48 36.6 C 80 22 123/69 95 05/24/23 10:29 81 24 97 05/24/23 09:05 05/24/23 08:00 05/24/23 08:35 81 22 90 05/24/23 06:00 76 22 133/75 91 05/24/23 05:00 75 22 127/73 91 O2 Del Method FiO2 05/24/23 16:00 60 05/24/23 16:00 05/24/23 16:00 05/24/23 15:50 05/24/23 15:50 05/24/23 15:40 05/24/23 15:40 05/24/23 15:30 05/24/23 15:30 05/24/23 15:20 05/24/23 15:20 05/24/23 15:10 05/24/23 15:10 05/24/23 15:00 05/24/23 15:00 05/24/23 14:50 05/24/23 14:50 05/24/23 14:40 05/24/23 14:40 05/24/23 14:30 05/24/23 14:30 05/24/23 14:20 05/24/23 14:20 05/24/23 14:10 05/24/23 14:10 05/24/23 14:00 05/24/23 14:00 05/24/23 13:57 05/24/23 13:57 05/24/23 13:45 05/24/23 13:45 05/24/23 13:43 05/24/23 13:43 05/24/23 13:40 05/24/23 13:40 05/24/23 13:38 05/24/23 13:38 05/24/23 13:35 05/24/23 13:35 05/24/23 13:33 05/24/23 13:33 05/24/23 13:30 05/24/23 13:30 05/24/23 13:28 05/24/23 13:28 05/24/23 13:25 05/24/23 13:25 05/24/23 13:25 05/24/23 13:23 05/24/23 13:23 05/24/23 13:00 05/24/23 13:00 05/24/23 14:16 60 05/24/23 13:12 Mechanical Vent 05/24/23 12:00 05/24/23 12:00 05/24/23 11:00 05/24/23 11:00 05/24/23 10:00 05/24/23 10:00 05/24/23 09:00 05/24/23 09:00 05/24/23 08:00 05/24/23 08:00 05/24/23 07:00 05/24/23 07:00 05/24/23 06:00 05/24/23 12:14 Mechanical Vent 100 05/24/23 09:00 Mechanical Vent 50 05/24/23 12:00 100 05/24/23 07:15 05/24/23 10:48 Mechanical Vent 100 05/24/23 10:29 100 05/24/23 09:05 Trach Collar 05/24/23 08:00 50 05/24/23 08:35 50 05/24/23 06:00 Mechanical Vent 50 05/24/23 05:00 Mechanical Vent 50 Laboratory Results Laboratory Results WBC 9.16 K/ul (4.8-10.8) 05/24/23 04:16 RBC 3.74 M/uL (4.70-6.10) L 05/24/23 04:16 Hgb 11.2 g/dl (14.0-18.0) L 05/24/23 04:16 POC Hgb 12.2 g/dl (14.0-18.0) L 05/22/23 06:12 Hct 35.3 % (42.0-52.0) L 05/24/23 04:16 POC Hct 36 % (42-52) L 05/22/23 06:12 MCV 94.4 fL (80.0-100.0) 08/31/23 04:16 MCH 29.9 pg (25.0-34.0) 05/24/23 04:16 MCHC 31.7 g/dL (32.0-36.0) L 05/24/23 04:16 RDW Std Deviation 55.2 fL (36.4-46.3) H 05/24/23 04:16 RDW Coeff of Cheryl 16.1 % (11.5-14.5) H 05/24/23 04:16 Plt Count 293 K/uL (130-400) 05/24/23 04:16 MPV 11.5 fL (9.4-12.4) 05/24/23 04:16 Immature Gran % (Auto) 9.4 % 05/22/23 05:32 Neut % (Auto) 63.5 % 05/22/23 05:32 Lymph % (Auto) 14.0 % 05/22/23 05:32 [place] % (Auto) 8.4 % 05/22/23 05:32 Eos % (Auto) 4.0 % 05/22/23 05:32 Baso % (Auto) 0.7 % 05/22/23 05:32 Neut # (Auto) 5.56 K/uL (1.40-6.50) 05/22/23 05:32 Lymph # (Auto) 1.22 K/uL (1.20-3.40) 05/22/23 05:32 [place] # (Auto) 0.73 K/uL (0.11-0.59) H 05/22/23 05:32 Eos # (Auto) 0.35 K/uL (0.00-0.50) 05/22/23 05:32 Baso # (Auto) 0.06 K/uL (0.00-0.20) 05/22/23 05:32 Immature Gran # (Auto) 0.82 K/uL (0.01-0.20) H 05/22/23 05:32 Absolute Nucleated RBC 0.04 K/uL (0.00-0.12) 05/24/23 04:16 Nucleated RBC % (auto) 0.4 % 05/24/23 04:16 Neutrophils % (Manual) 62 % 05/24/23 04:16 Lymphocytes % (Manual) 18 % 05/24/23 04:16 Monocytes % (Manual) 3 % 05/24/23 04:16 Eosinophils % (Manual) 4 % 05/24/23 04:16 Metamyelocytes % (Man) 6 % 05/24/23 04:16 Myelocytes % (Man) 7 % 05/24/23 04:16 Neutrophils # (Manual) 5.68 K/uL (1.40-6.50) 05/24/23 04:16 Total Absolute Neuts 5.68 K/uL (1.4-6.5) 05/24/23 04:16 Lymphocytes # (Manual) 1.65 K/uL (1.2-3.4) 05/24/23 04:16 Total Abs Lymphocytes 1.65 K/uL (1.2-3.4) 05/24/23 04:16 Monocytes # (Manual) 0.27 K/uL (0.11-0.59) 05/24/23 04:16 Eosinophils # (Manual) 0.37 K/uL (0-0.50) 05/24/23 04:16 Metamyelocytes # (Man) 0.55 K/uL (0-0) H 05/24/23 04:16 Myelocytes # (Manual) 0.64 K/uL (0-0) H 05/24/23 04:16 RBC Morphology Unremarkable 05/21/23 04:08 Polychromasia 1+ 05/20/23 04:25 Stomatocytes 1+ 05/24/23 04:16 ESR > 130 mm/hr (0-20) H 05/15/23 15:50 PT 12.4 Seconds (9.0-12.0) H 05/23/23 05:25 POC INR 2.3 (0.9-1.1) H 05/11/23 22:33 INR 1.1 (0.9-1.1) 05/23/23 05:25 APTT 58.1 Seconds (21.0-31.0) H* 05/23/23 05:25 PTT Ratio 2.1 05/23/23 05:25 Sample Site L Radial 05/22/23 06:12 POC pH 7.49 (7.35-7.45) H 05/22/23 06:12 POC pCO2 40 mmHg (35-46) 05/22/23 06:12 POC pO2 110 mmHg (80-95) H 05/22/23 06:12 POC HCO3 31 derek/L (19-24) H 05/22/23 06:12 POC Total CO2 32 mmol/L (24-31) H 05/22/23 06:12 POC Base Excess 7.0 derek/L (-9-1.8) H 05/22/23 06:12 ABG pH 7.32 (7.35-7.45) L 05/13/23 00:31 ABG pH (Temp Correct) 7.487 (7.35-7.45) H 05/22/23 06:12 ABG pCO2 55 mmHg (35-46) H 05/13/23 00:31 ABG pCO2 (Temp Corrct 40 mmHg (35-46) 05/22/23 06:12 ABG pO2 117 mmHg (80-95) H 05/13/23 00:31 POC ABG pO2 at Pt Temp 110 05/22/23 06:12 ABG HCO3 28 mmol/L (19-24) H 05/13/23 00:31 POC ABG O2 Sat 99.0 % (90-95) H 05/22/23 06:12 ABG O2 Saturation 99.2 % (90-95) H 05/13/23 00:31 ABG Base Excess 1.1 mEq/L (-9-1.8) 05/13/23 00:31 Galen Test Pass 05/22/23 06:12 VBG pH 7.47 (7.36-7.41) H 05/11/23 22:36 VBG pCO2 45 mmHg (38-50) 05/11/23 22:36 VBG pO2 49 mmHg 05/11/23 22:36 VBG HCO3 33 mmol/L 05/11/23 22:36 VBG O2 Saturation 85.9 % 05/11/23 22:36 VBG Base Excess 8.0 mEq/L 05/11/23 22:36 Oxygen Given 7L 05/13/23 00:31 O2 Delivery Device Ventilator 05/22/23 06:12 POC O2 Rate 22 05/22/23 06:12 Minute Ventilation 11.0 05/21/23 14:39 POC FiO2 60 % 05/22/23 06:12 Tidal Volume 500 05/22/23 06:12 PEEP 8 05/22/23 06:12 IPAP 18 05/17/23 09:30 POC Sodium 136 mmol/L (135-144) 05/22/23 06:12 Sodium 136 mmol/L (136-145) 05/24/23 04:16 POC Potassium 3.6 mmol/L (3.3-5.0) 05/22/23 06:12 Potassium 3.9 mmol/L (3.5-5.1) 05/24/23 04:16 Chloride 100 mmol/L (98-107) 05/24/23 04:16 Carbon Dioxide 30 mmol/L (21-32) 05/24/23 04:16 Anion Gap 6 (3-11) 05/24/23 04:16 BUN 83 mg/dl (6-23) H 05/24/23 04:16 Creatinine 2.17 mg/dl (0.6-1.4) H 05/24/23 04:16 Est Cr Clr Drug Dosing 69.5 ml/min 05/24/23 04:16 Est GFR ( Amer) 37.8 ml/min 05/24/23 04:16 Est GFR (Non-Af Amer) 32.6 ml/min 05/24/23 04:16 BUN/Creatinine Ratio 38.2 (10-20) H 05/24/23 04:16 Glucose 89 mg/dl (70-99(Fasting)) 05/24/23 04:16 POC Glucose 94 mg/dl (70-99) 05/24/23 07:54 Estimat Average Glucose 128 mg/dl 05/13/23 01:41 Hemoglobin A1c 6.1 % (4.5-5.6) H 05/13/23 01:41 Lactate 1.7 mmol/L (0.4-2.0) 05/11/23 22:36 Calcium 9.6 mg/dl (8.6-10.3) 05/24/23 04:16 Ionized Calcium 1.24 mmol/L (1.12-1.32) 05/17/23 05:26 Phosphorus 2.4 mg/dl (2.5-4.9) L 05/24/23 04:16 Magnesium 1.8 mg/dl (1.7-2.4) 05/24/23 04:16 Total Bilirubin 0.7 mg/dl (0.2-1.0) 05/13/23 01:41 AST 9 U/L (13-39) L 05/13/23 01:41 ALT 8 U/L (7-52) 05/13/23 01:41 Alkaline Phosphatase 62 U/L (34-104) 05/13/23 01:41 Troponin I High Sens 12.4 pg/ml (0-20) 05/13/23 01:41 C-Reactive Protein 50.71 mg/dl (0-0.5) H 05/15/23 15:50 Total Protein 6.9 gm/dl (6.0-8.3) 05/13/23 01:41 Albumin 3.6 gm/dl (3.4-5.0) 05/13/23 01:41 Globulin 3.3 gm/dl (2.5-4.0) 05/13/23 01:41 Albumin/Globulin Ratio 1.1 (0.9-2) 05/13/23 01:41 Triglycerides 173 mg/dl (0-150) H 05/13/23 01:41 Cholesterol 281 mg/dl (0-200) H 05/13/23 01:41 LDL Cholesterol, Calc 206 mg/dl 05/13/23 01:41 VLDL Cholesterol, Calc 35 mg/dl (0-30) H 05/13/23 01:41 HDL Cholesterol 40 mg/dl 05/13/23 01:41 Cholesterol/HDL Ratio 7.0 (0-5) H 05/13/23 01:41 Procalcitonin < 0.05 ng/ml (0-0.5) 05/11/23 22:36 TSH 2.374 uIu/ml (0.300-4.500) 05/15/23 15:50 Urine Color Dark Yellow 05/15/23 16:35 Urine Appearance Turbid (Clear) A 05/15/23 16:35 Urine pH 5.0 (4.5-7.5) 05/15/23 16:35 Ur Specific [place] 1.019 (1.000-1.030) 05/15/23 16:35 Urine Protein Trace (Negative) H 05/15/23 16:35 Urine Glucose (UA) Negative (Negative) 05/15/23 16:35 Urine Ketones Negative (Negative) 05/15/23 16:35 Urine Blood 3+ (Negative) H 05/15/23 16:35 Urine Nitrite Negative (Negative) 05/15/23 16:35 Urine Bilirubin 1+ (Negative) H 05/15/23 16:35 Urine Urobilinogen Negative (Negative) 05/15/23 16:35 Ur Leukocyte Esterase 2+ (Negative) H 05/15/23 16:35 Urine WBC (Auto) >30 /hpf (0-5) H 05/15/23 16:35 Urine RBC (Auto) 10-30 /hpf (0-4) H 05/15/23 16:35 U Hyaline Cast (Auto) 5-10 /lpf (0-5) H 05/15/23 16:35 U Epithel Cells (Auto) 10-20 /lpf (0-5) H 05/15/23 16:35 Urine Bacteria (Auto) 2+ (Negative) H 05/15/23 16:35 Amorphous Sediment Present (None Prsent) A 05/15/23 16:35 Granular Casts 1-5 /lpf (0) H 05/15/23 16:35 Urine Yeast Not Reportable 05/15/23 16:35 Urine Osmolality 384 mOsm/kg (500-800) L 05/15/23 10:35 Ur Random Creatinine 198.6 mg/dl 05/15/23 10:35 Ur Random Sodium 27 mmol/L 05/15/23 10:35 Ur Random Potassium 75.2 mmol/L 05/15/23 10:35 Ur Random Chloride < 15 mmol/L 05/15/23 10:35 Ur Random Uric Acid 17 mg/dL 05/15/23 10:35 Urine Opiates Screen Neg (Neg) 05/12/23 14:22 Ur Methadone, Qual Neg (Neg) 05/12/23 14:22 Urine Barbiturates Neg (Neg) 05/12/23 14:22 Ur Phencyclidine (PCP) Neg (Neg) 05/12/23 14:22 U Amphetamin/Meth Scrn Neg (Neg) 05/12/23 14:22 MDMA (Ecstasy) Screen Neg (Neg) 05/12/23 14:22 U Benzodiazepines Scrn Neg (Neg) 05/12/23 14:22 Ur Cocaine Metabolite Neg (Neg) 05/12/23 14:22 U Marijuana (THC) Screen Neg (Neg) 05/12/23 14:22 KEELY Screen NEGATIVE (NEGATIVE) 05/15/23 15:50 SS-A/Ro Antibody <1.0 NEG AI (<1.0 NEG) 05/15/23 15:50 SS-B/La Antibody <1.0 NEG AI (<1.0 NEG) 05/15/23 15:50 Sm (Arora) Antibody <1.0 NEG AI (<1.0 NEG) 05/15/23 15:50 R[employer]ARY [employer]PERATOR Antibody <1.0 NEG AI (<1.0 NEG) 05/15/23 15:50 Scl-70 Scleroderma Ab <1.0 NEG AI (<1.0 NEG) 05/15/23 15:50 Anti-ds DNA (Crithidia) NEGATIVE (NEGATIVE) 05/15/23 15:50 Chromatin Antibody <1.0 NEG AI (<1.0 NEG) 05/15/23 15:50 Anti-Centromere Ab <1.0 NEG AI (<1.0 NEG) 05/15/23 15:50 Histone Ab, Qual <1.0 U (<1.0) 05/16/23 04:38 Thyroid Antimicrosomal <1 IU/mL (<9) 05/15/23 15:50 Anti-Cardiolipin IgG Ab <2.0 GPL-U/mL 05/15/23 15:50 Anti-Cardiolipin IgA Ab <2.0 APL-U/mL 05/15/23 15:50 Anti-Cardiolipin IgM Ab 2.6 MPL-U/mL 05/15/23 15:50 Complement C3 172 mg/dL (82-185) 05/15/23 15:50 Complement C4 50 mg/dL (15-53) 05/15/23 15:50 SARS-CoV-2, RNA, NAAT NEGATIVE (NEGATIVE) 05/23/23 17:00 Blood Type O Negative 05/11/23 22:36 Antibody Screen NEGATIVE 05/11/23 22:36 Impressions Carotid Doppler Study 05/12/23 04:47 US carotid doppler BI CLINICAL HISTORY: 57 years-old Male with cva. Acute strokelike symptoms COMPARISON: None TECHNIQUE: Multiple real time sonographic images of the carotid bifurcations were obtained assessing hillman scale, color Doppler and spectral wave form appearance FINDINGS: RIGHT CAROTID: The peak systolic velocity measured within the right ICA is 56 cm/sec. The end diastolic velocity measured 21 cm/sec. The ICA to CCA ratio measured 0.7 which correlates with a stenosis of 0-50%. LEFT CAROTID: The peak systolic velocity measured within the left ICA is 44 cm/sec. The end diastolic velocity measured 18 cm/sec. The ICA to CCA ratio measured 1.2 which correlates with a stenosis of 0-50%. Mild atherosclerosis of the carotid bulbs. There is normal antegrade vertebral flow bilaterally. IMPRESSION: 1. Mild atherosclerosis of the carotid bulbs without hemodynamically significant stenosis. 2. Normal antegrade vertebral flow bilaterally. ACT 112: Negative or not required by law. The above report was generated using voice recognition software. It may contain grammatical, syntax or spelling errors. Electronically signed by: Mayito Garza M.D. 05/12/2023 11:[address] 05/12/23 23:59 Exam(s): CT HEAD Without Contrast EXAM: CT Head Without Intravenous Contrast CLINICAL HISTORY: Reason for exam: ams. TECHNIQUE: Axial computed tomography images of the head/brain without intravenous contrast. Automated exposure control was utilized for the study. A dose lowering technique was utilized adhering to the principles of ALARA. COMPARISON: Comparison made to prior head CT from May 12, 2023. FINDINGS: The study is suboptimal secondary to motion artifact. Brain: Unremarkable. No hemorrhage. Moderate nonspecific white matter changes. No edema. Ventricles: Unremarkable. No ventriculomegaly. Bones/joints: Unremarkable. No acute fracture. Soft tissues: Findings concerning for thyroid ophthalmopathy, which can be seen in the setting of Graves' disease. Sinuses: Unremarkable as visualized. No acute sinusitis. Mastoid air cells: Unremarkable as visualized. No mastoid effusion. IMPRESSION: No evidence of acute intracranial pathology. Electronically signed by: Janis Riddle MD 05/13/23 04:13 AM Renal Ultrasound 05/15/23 07:44 RENAL ULTRASOUND HISTORY: Acute kidney injury CHERYL COMPARISON: 10/19/2022 FINDINGS: Right kidney: 13.8 cm. No hydronephrosis. Diffuse cortical thinning with increased parenchymal echogenicity. 4.9 cm cyst of the inferior pole. Left kidney: 14.5 cm. No hydronephrosis. Diffuse cortical thinning with increased parenchymal echogenicity. Left renal cysts measure up to 3 cm. Bladder: Decompressed with Starks catheter. Limited exam secondary to patient body habitus. IMPRESSION: 1. Limited exam secondary to patient body habitus. 2. Evidence of chronic medical renal disease. 3. Probable complex and simple cysts of the kidneys are suboptimally visualized. ACT 112: Negative or not required by law. Electronically signed by: Mayito Garza M.D. 05/15/2023 12:44 PM Brain MRI 05/18/23 19:42 Exam(s): MRI HEAD Without Contrast EXAM: MR Head Without Intravenous Contrast CLINICAL HISTORY: Reason for exam: Stroke. TECHNIQUE: Magnetic resonance images of the head/brain without intravenous contrast in multiple planes. COMPARISON: Comparison made to prior head CT from May 13, 2023. FINDINGS: Brain: There is a large acute/subacute ischemic injury of the lake with extensive cytotoxic edema. Mild to moderate nonspecific white matter changes. No evidence of hemorrhagic transformation. No mass. No hemorrhage. The flow voids at the base the brain are intact. Ventricles: Mild ventriculomegaly. Bones/joints: Unremarkable. Sinuses: Chronic maxillary, sphenoid and ethmoid sinusitis. No acute sinusitis. Mastoid air cells: There is a small amount of fluid in the right mastoid air cells. No mastoid effusion. Orbits: Findings concerning for thyroid ophthalmopathy, which can be seen in the setting of Graves' disease. IMPRESSION: Acute/subacute ischemic injury of the lake without evidence of hemorrhagic transformation. Electronically signed by: Janis Riddle MD 05/19/23 00:24 AM Chest X-Ray 05/23/23 07:00 XR chest 1V portable CLINICAL HISTORY: Respiratory failure. COMPARISON STUDY: Chest radiograph May 21, 2023. FINDINGS: Tip of the tracheostomy tube is 6.6 cm above the onesimo. Tip of nasogastric tube is within the stomach. There is no pneumothorax or pleural effusion. Cardiomegaly is unchanged. Low lung volumes are also unchanged. There is no evidence for pulmonary edema. Linear left basilar opacity favors atelectasis. IMPRESSION: 1. Lines and tubes remain unchanged in position. 2. Stable cardiomegaly. No evidence for pulmonary edema. 3. Left basilar opacity suggestive of atelectasis. ACT 112: Negative or not required by law. Electronically signed by: Shan Pedroza M.D. 05/23/2023 10:18 AM Medications Administered Home Medications Medication Instructions Recorded Confirmed Last Taken verapamil 240 mg 24 hr 240 mg PO QAM 12/06/22 08/19/23 12/05/22 capsule,extended release carvedilol 12.5 mg tablet 12.5 mg PO BID #60 tabs 10/07/22 05/12/23 Unknown torsemide 20 mg tablet 20 mg PO QAM #30 tabs 10/07/22 05/12/23 Unknown prednisone 10 mg tablet 10 mg PO UD #75 tabs 10/25/22 05/12/23 Unknown albuterol sulfate 90 mcg/actuation 2 puff inhalation Q4 PRN Wheezing 05/12/23 0 05/12/23 Unknown aerosol inhaler allopurinol 300 mg tablet 300 mg PO DAILY 05/12/23 05/12/23 Unknown ferrous sulfate 325 mg (65 mg 325 mg PO DAILY 05/12/23 05/12/23 Unknown iron) tablet (FeroSul) sildenafil 50 mg tablet 50 mg PO DAILY PRN .. 05/12/23 05/12/23 Unknown warfarin 2 mg tablet 4 mg PO DAILY 05/12/23 05/12/23 Unknown Active Medications Generic Name Dose Route Start Last Admin Trade Name Freq PRN Reason Stop Dose Admin Allopurinol 300 mg 05/12/23 09:00 05/24/23 15:25 Allopurinol 300 Mg Tab PO 06/11/23 08:59 300 mg DAILY STACY Administration Atorvastatin Calcium 40 mg 05/13/23 09:00 05/24/23 15:26 Atorvastatin 40 Mg Tab PO 06/12/23 08:59 40 mg QAM STACY Administration Carvedilol 25 mg 05/19/23 08:00 05/24/23 15:56 Carvedilol 25 Mg Tab PO 06/18/23 07:59 25 mg BIDM STACY Administration Enteral Nutritional Formula 1,000 ml 05/16/23 10:30 05/22/23 08:08 Novasource Renal 2.0 Luke 1000ml Bag NG 06/15/23 10:29 1,000 ml UD STACY Administration Protocol Escitalopram Oxalate 5 mg 05/23/23 09:00 05/24/23 15:27 Escitalopram Oxalate Oral Soln 5 Mg/5 Ml Udp NG 06/22/23 08:59 5 mg QAM STACY Administration Ferrous Sulfate 325 mg 05/12/23 09:00 05/24/23 15:26 Ferrous Sulfate 325 Mg Tab PO 06/11/23 08:59 325 mg DAILY STACY Administration Folic Acid 1 mg 05/17/23 09:00 05/24/23 15:28 Folic Acid 1 Mg Tab PO 06/16/23 08:59 1 mg DAILY STACY Administration Heparin Sodium (Beef Lung) 5 ml 05/19/23 11:06 05/19/23 18:21 Heparin 10 Unit/Ml 5 Ml Flush FLUSH 06/18/23 11:05 5 ml PRN PRN Administration Flush Famotidine 20 mg/ Syringe 5 mls @ 2.5 mls/min 05/14/23 09:00 05/24/23 08:01 IV 06/13/23 08:59 2.5 mls/min DAILY STACY Administration Heparin Sodium/Dextrose 25,000 units in 500 mls @ 0 mls/hr 05/15/23 08:50 05/24/23 00:17 Heparin Sodium/Dextrose IV 06/14/23 08:49 0 units/hr .Q0M STACY 0 mls/hr Titration Protocol 0 UNITS/HR Cefepime HCl 2,000 mg/ Syringe 20 mls @ 5 mls/min 05/18/23 20:00 05/24/23 08:01 IV 05/27/23 07:59 5 mls/min Q12H STACY Administration Protocol Miconazole Nitrate 1 appln 05/12/23 15:11 05/21/23 12:05 Miconazole Nitrate Powder 85 Gm EXT 06/11/23 15:10 1 appln PRN PRN Administration Affected Skin Folds Prednisone 10 mg 05/15/23 09:00 05/24/23 15:25 Prednisone 10 Mg Tablet PO 05/25/23 08:59 10 mg DAILY STACY Administration Taper Sterile Water 30 ml 05/16/23 10:30 05/24/23 15:49 Tube Feeding Water Flush NG 06/15/23 10:29 30 ml Q4H STACY Administration Thiamine HCl 100 mg 05/18/23 09:00 05/24/23 15:27 Thiamine Hcl 100 Mg Tab NG 06/17/23 08:59 100 mg DAILY STACY Administration Torsemide 20 mg 05/12/23 09:00 05/12/23 09:16 Torsemide 20 Mg Tab PO 06/11/23 08:59 20 mg QAM STACY Administration Verapamil HCl 240 mg 05/12/23 09:00 05/12/23 09:17 Verapamil Hcl 240 Mg Tabcr PO 06/11/23 08:59 240 mg QAM STACY Administration Coding Level of Care Code 97608 CRITICAL CARE 1ST 30-74M Diagnoses CKD (chronic kidney disease) stage 3, GFR 30-59 ml/min N18.30 Stroke I63.9 Slurring of speech R47.81 Hypoxia R09.02 Epigastric abdominal pain R10.13 Eosinophilia D72.19 DVT (deep venous thrombosis) I82.409
[2023-05-24] MEDS: HEPARIN SODIUM/DEXTROSE 25,000 UNITS/500 ML BAG IV SCH (16:45)
--- NOTE | 2023-05-24 17:41 | Anesthesiology Progress Note ---
Date of Service May 24, 2023 Anesthesia Post Procedure Vital Signs Vital Signs: Temp Pulse Pulse Resp BP BP Pulse Ox 05/24/23 16:51 74 05/24/23 16:00 05/24/23 16:00 73 22 90 05/24/23 16:00 113/73 05/24/23 15:50 116/67 05/24/23 15:50 72 22 90 05/24/23 15:40 74 22 89 L 05/24/23 15:40 119/66 05/24/23 15:30 75 22 89 L 05/24/23 15:30 124/71 05/24/23 15:20 111/68 05/24/23 15:20 73 22 89 L 05/24/23 15:10 121/69 05/24/23 15:10 75 22 89 L 05/24/23 15:00 76 22 89 L 05/24/23 15:00 128/72 05/24/23 14:50 120/68 05/24/23 14:50 75 22 90 05/24/23 14:40 121/66 05/24/23 14:40 78 22 91 05/24/23 14:30 119/66 05/24/23 14:30 78 23 91 05/24/23 14:20 123/67 05/24/23 14:20 78 20 91 05/24/23 14:10 120/68 05/24/23 14:10 76 22 92 05/24/23 14:00 76 22 97 05/24/23 14:00 111/60 05/24/23 13:57 80 20 94 05/24/23 13:57 103/58 L 05/24/23 13:45 109/58 L 05/24/23 13:45 69 15 95 05/24/23 13:43 69 16 94 05/24/23 13:43 86/63 L 05/24/23 13:40 100/54 L 05/24/23 13:40 73 12 94 05/24/23 13:38 75/44 L 05/24/23 13:38 75 6 L 98 05/24/23 13:35 78 8 L 98 05/24/23 13:35 91/47 L 05/24/23 13:33 81 8 L 98 05/24/23 13:33 99/58 L 05/24/23 13:30 85 17 95 05/24/23 13:30 120/72 05/24/23 13:28 77 11 L 94 05/24/23 13:28 111/58 L 05/24/23 13:25 79 24 94 05/24/23 13:25 125/75 05/24/23 13:25 125/75 05/24/23 13:23 82 17 96 05/24/23 13:23 128/82 05/24/23 13:00 77 22 91 05/24/23 13:00 124/78 05/24/23 14:16 22 05/24/23 13:12 80 22 125/75 94 05/24/23 12:00 79 22 93 05/24/23 12:00 115/69 05/24/23 11:00 78 22 95 05/24/23 11:00 112/68 05/24/23 10:00 78 22 92 05/24/23 10:00 123/69 05/24/23 09:00 80 23 90 05/24/23 09:00 123/68 05/24/23 08:00 79 22 89 L 05/24/23 08:00 120/72 05/24/23 07:00 82 22 92 05/24/23 07:00 115/75 05/24/23 06:00 68 22 92 05/24/23 12:14 78 18 115/69 95 05/24/23 09:00 36.6 C 74 22 126/69 94 05/24/23 12:00 05/24/23 07:15 76 05/24/23 10:48 36.6 C 80 22 123/69 95 05/24/23 10:29 81 24 97 05/24/23 09:05 05/24/23 08:00 05/24/23 08:35 81 22 90 05/24/23 06:00 76 22 133/75 91 05/24/23 05:00 75 22 127/73 91 05/24/23 04:00 37.5 C 74 22 123/74 91 05/24/23 04:00 05/24/23 03:00 73 22 113/65 93 05/24/23 02:00 72 22 135/76 92 05/24/23 02:19 74 22 90 05/24/23 01:00 73 22 111/66 91 05/24/23 00:00 37 C 83 22 134/73 93 05/24/23 00:00 05/23/23 23:00 81 24 146/76 H 92 05/23/23 22:00 84 26 H 145/87 H 93 05/23/23 21:00 83 22 143/89 H 96 05/23/23 20:00 37.2 C 79 22 130/76 90 05/23/23 19:00 80 24 91 05/23/23 22:31 80 25 H 92 05/23/23 19:49 78 25 H 92 05/23/23 20:00 05/23/23 20:00 05/23/23 18:00 83 23 92 05/23/23 18:00 135/86 O2 Del Method FiO2 05/24/23 16:51 05/24/23 16:00 60 05/24/23 16:00 05/24/23 16:00 05/24/23 15:50 05/24/23 15:50 05/24/23 15:40 05/24/23 15:40 05/24/23 15:30 05/24/23 15:30 05/24/23 15:20 05/24/23 15:20 05/24/23 15:10 05/24/23 15:10 05/24/23 15:00 05/24/23 15:00 05/24/23 14:50 05/24/23 14:50 05/24/23 14:40 05/24/23 14:40 05/24/23 14:30 05/24/23 14:30 05/24/23 14:20 05/24/23 14:20 05/24/23 14:10 05/24/23 14:10 05/24/23 14:00 05/24/23 14:00 05/24/23 13:57 05/24/23 13:57 05/24/23 13:45 05/24/23 13:45 05/24/23 13:43 05/24/23 13:43 05/24/23 13:40 05/24/23 13:40 05/24/23 13:38 05/24/23 13:38 05/24/23 13:35 05/24/23 13:35 05/24/23 13:33 05/24/23 13:33 05/24/23 13:30 05/24/23 13:30 05/24/23 13:28 05/24/23 13:28 05/24/23 13:25 05/24/23 13:25 05/24/23 13:25 05/24/23 13:23 05/24/23 13:23 05/24/23 13:00 05/24/23 13:00 05/24/23 14:16 60 05/24/23 13:12 Mechanical Vent 05/24/23 12:00 05/24/23 12:00 05/24/23 11:00 05/24/23 11:00 05/24/23 10:00 05/24/23 10:00 05/24/23 09:00 05/24/23 09:00 05/24/23 08:00 05/24/23 08:00 05/24/23 07:00 05/24/23 07:00 05/24/23 06:00 05/24/23 12:14 Mechanical Vent 100 05/24/23 09:00 Mechanical Vent 50 05/24/23 12:00 100 05/24/23 07:15 05/24/23 10:48 Mechanical Vent 100 05/24/23 10:29 100 05/24/23 09:05 Trach Collar 05/24/23 08:00 50 05/24/23 08:35 50 05/24/23 06:00 Mechanical Vent 50 05/24/23 05:00 Mechanical Vent 50 05/24/23 04:00 Mechanical Vent 50 05/24/23 04:00 50 05/24/23 03:00 Mechanical Vent 50 05/24/23 02:00 Mechanical Vent 40 05/24/23 02:19 50 05/24/23 01:00 Mechanical Vent 40 05/24/23 00:00 Mechanical Vent 40 05/24/23 00:00 40 05/23/23 23:00 Mechanical Vent 40 05/23/23 22:00 Mechanical Vent 40 05/23/23 21:00 Mechanical Vent 40 05/23/23 20:00 Mechanical Vent 40 05/23/23 19:00 Mechanical Vent 40 05/23/23 22:31 40 05/23/23 19:49 40 05/23/23 20:00 Mechanical Vent 40 05/23/23 20:00 40 05/23/23 18:00 05/23/23 18:00 Transfer of Care Handoff Completed per policy Notes Mental Status: alert / awake / arousable and participated in evaluation Patient Amnestic to Procedure: Yes Nausea / Vomiting: adequately controlled Pain: adequately controlled Airway Patency, RR, SpO2: see Notes below BP & HR: stable & adequate Hydration State: stable & adequate Anesthetic Complications: no major complications apparent and Pt Satisfied with anesthetic care Notes: Patient had trach in place. Transferred back to ICU with portable vent managed by respiratory therapy. VSS. ICU resumed care of this patient.
[2023-05-25 00:01] LABS: Partial Thromboplastin Ratio 1.8
[2023-05-25] MEDS: TUBE FEEDING WATER FLUSH NG SCH ×3 (01:46→09:37)
[2023-05-25] MEDS: HEPARIN SODIUM/DEXTROSE 25,000 UNITS/500 ML BAG IV SCH (05:13)
[2023-05-25 05:19] LABS: Hematocrit (blood only) 34.5 % (42.0-52.0); Hemoglobin 10.8 g/dl (14.0-18.0); Mean Corpuscular Hemoglobin 30.3 pg (25.0-34.0); Mean Corpuscular Hgb Conc 31.3 g/dL (32.0-36.0); Mean Corpuscular Volume 96.6 fL (80.0-100.0); Platelet Count 288 K/uL (130-400); RDW Coefficient of Variation 16.2 % (11.5-14.5); RDW Standard Deviation 57.6 fL (36.4-46.3); Red Blood Count 3.57 M/uL (4.70-6.10); White Blood Count 9.85 K/ul (4.8-10.8)
[2023-05-25 05:27] LABS: BUN Creatinine Ratio 32.1 (10-20); Calcium 9.3 mg/dl (8.6-10.3); Creatinine Clr Calc Pharmacy 64.5 ml/min; Est GFR (African American) 34.5 ml/min; Est GFR (Non-African American) 29.8 ml/min; Potassium 4.1 mmol/L (3.5-5.1)
[2023-05-25 05:28] LABS: Magnesium 2.1 mg/dl (1.7-2.4)
[2023-05-25 05:42] LABS: Basophils # (auto) 0.06 K/uL (0.00-0.20); Basophils % (auto) 0.6 %; Eosinophils # (auto) 0.39 K/uL (0.00-0.50); Immature Granulocytes # (auto) 0.84 K/uL (0.01-0.20); Immature Granulocytes % (auto) 8.5 %; Lymphocytes # (auto) 1.34 K/uL (1.20-3.40); Lymphocytes % (auto) 13.6 %; Monocytes # (auto) 0.87 K/uL (0.11-0.59); Monocytes % (auto) 8.8 %; Neutrophils # (auto) 6.35 K/uL (1.40-6.50); Neutrophils % (auto) 64.5 %; RBC Morphology Unremarkable
[2023-05-25 05:56] LABS: Partial Thromboplastin Ratio 1.8
[2023-05-25 06:22] LABS: Partial Thromboplastin Time 49.8 Seconds (21.0-31.0)
[2023-05-25] MEDS ORDERED: predniSONE 10 MG TABLET PO SCH (09:00)
[2023-05-25] MEDS: FERROUS SULFATE 325 MG TAB PO SCH (09:13)
[2023-05-25] MEDS: allopurinoL 300 MG TAB PO SCH (09:13)
[2023-05-25] MEDS: FOLIC ACID 1 MG TAB PO SCH (09:14)
[2023-05-25] MEDS: FAMOTIDINE 20 MG in SYRINGE 3 ML IV SCH (09:14)
[2023-05-25] MEDS: THIAMINE HCL 100 MG TAB NG SCH (09:14)
[2023-05-25] MEDS: carvediloL 25 MG TAB PO SCH (09:14)
[2023-05-25] MEDS: CEFEPIME 2,000 MG in SYRINGE 0 ML IV SCH (09:14)
[2023-05-25] MEDS: ATORVASTATIN 40 MG TAB PO SCH (09:15)
[2023-05-25] MEDS: ESCITALOPRAM OXALATE ORAL SOLN 5 MG/5 ML UDP NG SCH (09:15)
[2023-05-25] MEDS ORDERED: WARFARIN SOD 6 MG TAB PO STA (10:05)
--- NOTE | 2023-05-25 10:05 | Hospitalist Progress Note ---
Date of Service May 25, 2023 Assessment & Plan (1) Acute CVA (cerebrovascular accident): Plan: This is a 57 yo M w/ hypertension,HLD, morbid obesity, chronic diastolic CHF, and ambulatory dysfunction currently wheelchair-bound hx of gout, rheumatoid arthritis, tobacco abuse,chronic back pain, medication non compliance, chronic kidney disease, morbid obesity, obesity hypoventilation syndrome, history of DVT on Coumadin currently living at home is brought in because of strokelike symptoms since around 5 PM he noticed to have slurred speech. Metabolic encephalopathy Acute CVA, Rob[place] Admitted with Slurred speech CT head in ER - negative CTA head and neck not done because of history of significant CHERYL in the recent past Patient on Coumadin and INR therapeutic TNK was not given because of INR therapeutic Patient states he is severely claustrophobic for MRI scan Echo - EF 60 to 65%. Moderate concentric LVH. RV is grossly normal size. RV systolic function is qualitatively normal. Poorly visualized valvular anatomy. Carotid Doppler 1. Mild atherosclerosis of the carotid bulbs without hemodynamically significant stenosis. 2. Normal antegrade vertebral flow bilaterally. Brain MRI: IMPRESSION: Acute/subacute ischemic injury of the rob[place] without evidence of hemorrhagic transformation. 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 Vent Mgt per ICU- currently on CPAP setting Nutritional support through nasogastric tube so far Appreciate GI input and recommendation for PEG tube placement Will need placement in LTAC Remains stable on mechanical vent via tracheostomy tube Will need to be placed in LTAC-Will be transferred to LTAC today 05/25/2023 Nutritional support Appreciate GI input and recommendation Will have PEG tube placement 05/24/2023 Feeding can be started from today 05/25/2023 Acute Kidney Injury-history of chronic kidney disease stage III Crea 4.2 to 3.2 to 2s Nephro on board on Torsemide Creatinine remains stable at 2.16 Creatinine remains at the baseline and nephrology signed off Creatinine is 2.34 as of 05/25/2023- Hypertension on Carvedilol Blood pressure is controlled History DVT on heparin drip Can be changed to Coumadin history of gout Allopurinol Rheumatoid arthritis on Prednisone 10mg Morbid obesity Obesity hypoventilation syndrome Not using BiPAP at home. Says he had nocturnal study done recently and he does not have results yet. Chronic diastolic CHF (+) edema on Torsemide History of anemia On iron supplements Hemoglobin stable DVT prophylaxis Heparin drip Disposition -status post PEG tube placement on 05/24/2023 Feeding can be started from today after 1 PM Full code Admission and Anticipated Discharge Date Admission Date: May 12, 2023 Subjective 05/23/2023 The patient was seen and examined in ICU He denies any significant symptoms and nonverbal does not have any acute distr ess He is willing to have PEG tube placement for feeding 05/24/2023 The patient was seen and examined in ICU He remains stable and is nonverbal Status post tracheotomy and on mechanical vent support Will have PEG tube placement today Physical Exam Physical Exam: Lying in bed comfortably Constitutional: well developed, well nourished, + ill appearing and + morbidly obese Eyes: PERRL, conjunctivae normal, anicteric sclerae Neck: trachea midline, no thyromegaly Respiratory: no respiratory distress Auscultation: + diminished lung sounds and + crackles (Minimal bibasilar crackles) Cardiovascular: Rate/Rhythm: regular rate and regular rhythm; not tachycardic Heart Sounds: normal S1 and normal S2; no murmur Extremities: + edema (1+ edema bilaterally) Gastrointestinal (Abdomen): Inspection/Auscultation: + abdomen distended and normal bowel sounds Percussion/Palpation: abdomen soft; abdomen nontender Lymphatic: no cervical or axillary lymphadenopathy Results & Data Results & Data Vital Signs (Past 12 Hours) Vital Signs Temp Pulse Resp BP Pulse Ox O2 Del Method FiO2 05/25/23 08:58 Mechanical Vent 65 05/25/23 08:00 65 05/25/23 07:49 78 21 91 65 05/25/23 07:00 66 05/25/23 06:00 76 22 92 05/25/23 06:00 105/63 05/25/23 05:00 72 22 92 05/25/23 05:00 122/67 05/25/23 04:00 69 22 93 05/25/23 04:00 111/62 05/25/23 03:00 71 22 93 05/25/23 03:00 36.9 C 123/67 05/25/23 02:00 64 22 92 05/25/23 02:00 138/79 05/25/23 01:00 68 22 92 05/25/23 01:00 124/73 05/25/23 04:00 65 05/25/23 02:38 70 23 94 65 05/25/23 00:00 74 22 92 05/25/23 00:00 138/78 05/24/23 23:00 71 22 92 05/24/23 23:00 123/78 05/25/23 00:00 65 05/25/23 00:00 70 05/24/23 22:09 92 H 22 70 L 65 05/24/23 22:05 Mechanical Vent
--- NOTE | 2023-05-25 10:29 | Communication Note ---
Date of Service: May 25, 2023 Pt underwent PEG placement 05/24/23 and overnight did well. No acute events overnight. ICU team informed me that pt is being dc'd to LTACH shortly this AM. No melena, hematochezia, hematemesis. Pt denies abd pain. Abd soft, nontender, BS x4 quadrants. Site looks clean and dry; no erythema, bleeding, drainage. Bumper at 6 cm. - Please follow the post-PEG recommendations including: Nutrition consult for formula and volume, change dressing on top of bumper daily, may use PEG today for meds and water, may use PEG today for feedings, flush PEG daily with 60 ml water, antibiotic ointment to site and clean site with soap and water daily and dry thoroughly. EGD 05/24 for PEG placement: - Normal esophagus. - Normal stomach. - Normal examined duodenum. - An externally removable PEG placement was successfully completed. - No specimens collected. GI will sign off, please call with questions.
--- NOTE | 2023-05-25 11:51 | Critical Care Progress Note ---
Date of Service May 25, 2023 Assessment & Plan (1) CKD (chronic kidney disease) stage 3, GFR 30-59 ml/min: (2) Stroke: (3) Slurring of speech: (4) Hypoxia: (5) Epigastric abdominal pain: (6) Eosinophilia: (7) DVT (deep venous thrombosis): Plan Reason Critically Ill: 57 YOM admitted for stroke like symptoms currently with worsening of aphasia, left sided weakness and tachypnea on BiPAP with concern for respiratory failure. 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 She is still deciding on POA. -Received PEG placement and will initiate enteral feedings later today Brain MRI 05/18/2023 acute/subacute injury of the lake without evidence of hemorrhagic transformation. -TSH, sodium, calcium, glucose within normal limit on 05/15/2023 -Follow-up autoimmune work-up -ESR and CRP are elevated for the patient which is nonspecific 2D echo 05/12/2023: EF 60-65%, moderate concentric LVH, RV systolic function normal Neurology on board Cardiac -HTN, HLD - High Dose statin therapy - 40mg Atorvastatin Respiratory -Acute on Chronic Respiratory failure, Obesity Hypoventilation syndrome -- Trach dependent respiratory failure Trach size 8 XLT proximal placed by Dr. Dubon 05/17/2023 -serial CXR'S -Continue pulmonary hygiene - continue to place patient on CPAP mode and eventually transition to trach collar during the day and ventilator mode settings of assist-control nocturnally. GI -Morbid Obesity - no acute needs RENAL/LYTES - CHERYL on CKD --> improving -Monitor BUNs/creatinine which is improving with creatinine of 2.34 today -Avoid nephrotoxic medications - Nephrology on board -CHERYL-Stage II - We will follow creatinine. Overall serum creatinine and renal function has improved - No acute need - Starks to gravity ENDO - No acute needs - HGB A1C 5.5 range -Continue with ICU hypoglycemia protocol HEME -Hx of Eosinophilia on chronic prednisone, HX of DVT History of eosinophil count as high as 3400 10/17/2022 - Follows with Allergy- on steroid taper -On prednisone taper since 04/28/2023. Was started on 40 mg and was supposed to decrease by 10 mg every week. -- History of DVT On chronic warfarin follow daily INR to goal 2-2.5 -- PEG tube placement will resume patient's Coumadin for anticoagulation and remove heparin drip and follow PTT/INR ID - -- Pseudomonas pansensitive in the urine Started on Rocephin 05/15/2023 --> changed to cefepime 05/17/2023, will continue for 10 days -Depression - seen by Psychiatry - Mark --Prophylaxis VTE: Heparin drip GI: Pepcid Lines: Peripheral Diet: Tube feeds-tolerating well Plan: In/out: 2301mL/ urine output 1725ml Chest x-ray from today shows trach 7 cm above the onesimo. Currently has size 8 XLT-P. Patient getting good volumes. He might need Brovana given his thick neck Try pressure support today. If he does well today then tomorrow we can try trach collar Continue with vent nightly Potassium being replaced Continue diuresis Overall prognosis is poor Patient being transferred today to long-term care facility in [facility]. His daughter, Deb is still deciding whether to take POA from his at this time. The rest of his family lives in the [place] area including his father and his children. I have personally spent 36 minutes of critical care time in the direct management of this patient today on 05/25/2023. This is a life/limb threatening event. This includes time spent evaluating patient, direct bedside care, chart review, placing orders, interpretation of diagnostic studies, discussion with consultants, patient, and family members, as well as other required patient management activities. This time is exclusive of all separately billable procedures, and teaching time and separate from and in addition to any other critical care service time. Please note the above document was generated using voice recognition software. It may contain grammatical, syntax or spelling errors. Admission and Anticipated Discharge Date Admission Date: May 12, 2023 Subjective No acute problems overnight as patient currently remains on CPAP/pressure support 08/31 tolerating this well. Patient did have a PEG tube yesterday and we were asked by GI to initiate enteral feedings 24 hours post PEG tube placement however we will initiate transition from heparin drip to Coumadin by providing 6 mg of Coumadin today and future discontinuation of heparin drip. Patient has been arranged to transport to LTAC facility in [facility] later this morning. Review of Systems Review of Systems: All systems reviewed & are unremarkable except as noted in Subjective Physical Exam Constitutional: WD/WN, vitals as above Eyes: PERRL, conjunctivae normal, anicteric sclerae ENMT: external ear and nose normal, oropharynx normal Neck: trachea midline, no thyromegaly Respiratory: normal respiratory effort, lungs clear to auscultation Tolerating CPAP trial well. No cough or wheezing patient has tracheostomy of a size 8 XLT. Cardiovascular: Rate/Rhythm: regular rate and regular rhythm Gastrointestinal (Abdomen): normal bowel sounds, soft, nontender, no hepatosplenomegaly Musculoskeletal: no cyanosis or clubbing, extremities motor strength 5/5 Skin: no rashes, warm and dry Neurologic: patellar DTR's 2+ bilat, sensation intact and PERRL, EOMI, accommodation nl, no face palsy, no dysarthria Psychiatric: Orientation: alert Results & Data Results & Data Vital Signs (Past 12 Hours) Vital Signs Temp Pulse Pulse Pulse Resp BP BP 05/25/23 10:00 72 17 05/25/23 10:00 120/70 05/25/23 09:00 71 17 05/25/23 09:00 140/79 05/25/23 08:00 74 24 05/25/23 08:00 111/67 05/25/23 07:01 74 22 05/25/23 07:01 142/83 H 05/25/23 07:00 70 22 05/25/23 10:33 36.9 C 80 89 21 125/75 05/25/23 08:58 05/25/23 08:00 05/25/23 07:49 78 21 05/25/23 07:00 66 05/25/23 06:00 76 22 05/25/23 06:00 105/63 05/25/23 05:00 72 22 05/25/23 05:00 122/67 05/25/23 04:00 69 22 05/25/23 04:00 111/62 05/25/23 03:00 71 22 05/25/23 03:00 36.9 C 123/67 05/25/23 02:00 64 22 05/25/23 02:00 138/79 05/25/23 01:00 68 22 05/25/23 01:00 124/73 05/25/23 04:00 05/25/23 02:38 70 23 05/25/23 00:00 74 22 05/25/23 00:00 138/78 05/25/23 00:00 05/25/23 00:00 70 Pulse Ox O2 Del Method FiO2 05/25/23 10:00 92 05/25/23 10:00 05/25/23 09:00 94 05/25/23 09:00 05/25/23 08:00 91 05/25/23 08:00 05/25/23 07:01 95 05/25/23 07:01 05/25/23 07:00 93 05/25/23 10:33 91 05/25/23 08:58 Mechanical Vent 65 05/25/23 08:00 65 05/25/23 07:49 91 65 05/25/23 07:00 05/25/23 06:00 92 05/25/23 06:00 05/25/23 05:00 92 05/25/23 05:00 05/25/23 04:00 93 05/25/23 04:00 05/25/23 03:00 93 05/25/23 03:00 05/25/23 02:00 92 05/25/23 02:00 05/25/23 01:00 92 05/25/23 01:00 05/25/23 04:00 65 05/25/23 02:38 94 65 05/25/23 00:00 92 05/25/23 00:00 05/25/23 00:00 65 05/25/23 00:00 Coding Level of Care Code 66042 CRITICAL CARE 1ST 30-74M Diagnoses CKD (chronic kidney disease) stage 3, GFR 30-59 ml/min N18.30 Stroke I63.9 Slurring of speech R47.81 Hypoxia R09.02 Epigastric abdominal pain R10.13 Eosinophilia D72.19 DVT (deep venous thrombosis) I82.409
--- NOTE | 2023-05-25 12:28 | Discharge Summary ---
Date of Service May 25, 2023 Admission HPI Per Admitting Provider dysphagia following CVA Admission Exam Per Admitting Provider Physical Exam: General-Not in acute distress. Head- atraumatic Eyes- PERRL, ENT- oropharynx clear Neck- supple, no JVD, Lungs- clear to auscultation no wheezing or crackles. Heart- regular rhythm; no murmur, no gallop. Abdomen- normal bowel sounds, soft, nontender, no distension. Extremities- mild pretibial edema, no erythema seen. Neuro- alert, oriented x 3; PERRL,Speech slurred no facial palsy;tounge midline. obeys commands.b/l weakness in extremities. Skin- warm & dry Principal Diagnosis Acute stroke, acute on chronic respiratory failure, obesity hypoventilation syndrome ,status post tracheostomy, hypertension, acute on chronic kidney disease, rheumatoid arthritis Discharge Exam Lying in bed comfortably Constitutional well developed, well nourished, + ill appearing and + morbidly obese Eyes PERRL, conjunctivae normal, anicteric sclerae Neck trachea midline, no thyromegaly Respiratory no respiratory distress Auscultation: + diminished lung sounds and + crackles (Minimal bibasilar crackles) Cardiovascular Rate/Rhythm: regular rate and regular rhythm; not tachycardic Heart Sounds: normal S1 and normal S2; no murmur Extremities: + edema (1+ edema bilaterally) Gastrointestinal (Abdomen) Inspection/Auscultation: + abdomen distended and normal bowel sounds Percussion/Palpation: abdomen soft; abdomen nontender Neurologic Alert and awake. Nonverbal. Minimal movement in the right excited extremities. Barely any movement of the left side Lymphatic no cervical or axillary lymphadenopathy Discharge Data Allergies Allergy/AdvReac Type Severity Reaction Status Date / Time Iodinated Contrast Media Allergy Hives Verified 05/12/23 00:10 iodine Allergy Hives Verified 05/12/23 00:10 Consultations 05/11/23 23:54 ED Decision to Admit Stat 05/12/23 08:00 Consult Neurology Routine 05/13/23 02:22 Consult Car Dumper Operator Helper Routine 05/13/23 06:19 Consult Nephrology Routine 05/15/23 09:09 Consult Psychiatry Routine 05/22/23 12:44 Consult Gastroenterology Routine 05/25/23 10:32 Burn CD for patient Stat Procedures Performed Operation Date: 05/24/23 16:45 <No data on this case meets the specified criteria> Ordered Studies 05/11/23 22:18 CT head/brain wo con Stat 05/12/23 04:47 US carotid doppler BI Routine 05/12/23 09:16 CT head/brain wo con Urgent 05/12/23 23:59 CT head/brain wo con Stat 05/15/23 07:44 US renal/blad retro comp Urgent 05/18/23 19:42 MRI Brain [MR brain wo con] Routine Hospital Course (1) Acute CVA (cerebrovascular accident): This is a 57 yo M w/ hypertension,HLD, morbid obesity, chronic diastolic CHF, and ambulatory dysfunction currently wheelchair-bound hx of gout, rheumatoid arthritis, tobacco abuse,chronic back pain, medication non compliance, chronic kidney disease, morbid obesity, obesity hypoventilation syndrome, history of DVT on Coumadin currently living at home is brought in because of strokelike symptoms since around 5 PM he noticed to have slurred speech. Metabolic encephalopathy Acute CVA, [place] Admitted with Slurred speech CT head in ER - negative CTA head and neck not done because of history of significant CHERYL in the recent past Patient on Coumadin and INR therapeutic TNK was not given because of INR therapeutic Patient states he is severely claustrophobic for MRI scan Echo - EF 60 to 65%. Moderate concentric LVH. RV is grossly normal size. RV systolic function is qualitatively normal. Poorly visualized valvular anatomy. Carotid Doppler 1. Mild atherosclerosis of the carotid bulbs without hemodynamically significant stenosis. 2. Normal antegrade vertebral flow bilaterally. Brain MRI: IMPRESSION: Acute/subacute ischemic injury of the lake without evidence of hemorrhagic transformation. 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 Vent Mgt per ICU- currently on CPAP setting Nutritional support through nasogastric tube so far Appreciate GI input and recommendation for PEG tube placement Will need placement in LTAC Remains stable on mechanical vent via tracheostomy tube Will need to be placed in LTAC-Will be transferred to LTAC today 05/25/2023 Nutritional support Appreciate GI input and recommendation Will have PEG tube placement 05/24/2023 Feeding can be started from today 05/25/2023 Acute Kidney Injury-history of chronic kidney disease stage III Crea 4.2 to 3.2 to 2s Nephro on board on Torsemide Creatinine remains stable at 2.16 Creatinine remains at the baseline and nephrology signed off Creatinine is 2.34 as of 05/25/2023- Hypertension on Carvedilol Blood pressure is controlled History DVT on heparin drip Can be changed to Coumadin history of gout Allopurinol Rheumatoid arthritis on Prednisone 10mg Morbid obesity Obesity hypoventilation syndrome Not using BiPAP at home. Says he had nocturnal study done recently and he does not have results yet. Chronic diastolic CHF (+) edema on Torsemide History of anemia On iron supplements Hemoglobin stable DVT prophylaxis Heparin drip Disposition -status post PEG tube placement on 05/24/2023 Feeding can be started from today after 1 PM Full code Total Time Total Time Spent Total Time Spent (In Minutes): 45 minutes Discharge Plan Discharge Items Patient Disposition: Transfer to LTAC Reason For Visit: STROKE LIKE SYMPTOMS Discharge Diagnosis: Acute stroke, acute on chronic respiratory failure, obesity hypoventilation syndrome ,status post tracheostomy, hypertension, acute on chronic kidney disease, rheumatoid arthritis Condition on Discharge: Fair Activity: As commented below Activity Comment: Requires help with ADLs Non-emergency contact: Primary Care Provider Call non-emergency contact if: you have any medication questions and your symptoms worsen Follow-up/Referrals: King Holcomb DO [Primary Care Provider] - (Please make an appointment with your PCP within 7 days following discharge from the facility) Diet: Other - See Diet Comment Diet Comment: PEG tube feeding needs to be started Addtl Attending Provider Instructions: All of his hospital medications were continued as below; Date of Service: May 25, 2023 Current Inpatient Medications Albuterol (Albuterol 0.083% Nebu Soln 3 Ml Vial) 2.5 mg NEB Q6R PRN; Protocol PRN Reason: Shortness Of Breath Or Wheezing Stop: 06/17/23 21:43 Allopurinol (Allopurinol 300 Mg Tab) 300 mg PO DAILY [facility] Stop: 06/11/23 08:59 Last Admin: 05/25/23 09:13 Dose: 300 mg Atorvastatin Calcium (Atorvastatin 40 Mg Tab) 40 mg PO QAM STACY Stop: 06/12/23 08:59 Last Admin: 05/25/23 09:15 Dose: 40 mg Carvedilol (Carvedilol 25 Mg Tab) 25 mg PO BIDM [facility] Stop: 06/18/23 07:59 Last Admin: 05/25/23 09:14 Dose: 25 mg Dextrose (Dextrose 50% 50 Ml Syringe) 25 - 50 ml IV UD PRN; Protocol PRN Reason: Hypoglycemia Protocol Stop: 06/17/23 10:59 Enteral Nutritional Formula (Novasource Renal 2.0 Luke 1000ml Bag) 1,000 ml NG UD STACY; Protocol Stop: 06/15/23 10:29 Last Admin: 05/22/23 08:08 Dose: 1,000 ml Escitalopram Oxalate (Escitalopram Oxalate Oral Soln 5 Mg/5 Ml Udp) [facility] [place] [place] Stop: 06/22/23 08:59 Last Admin: 05/25/23 09:15 Dose: 5 mg Ferrous Sulfate (Ferrous Sulfate 325 Mg Tab) 325 mg PO DAILY STACY Stop: 06/11/23 08:59 Last Admin: 05/25/23 09:13 Dose: 325 mg Folic Acid (Folic Acid 1 Mg Tab) 1 mg PO DAILY STACY Stop: 06/16/23 08:59 Last Admin: 05/25/23 09:14 Dose: 1 mg Glucagon (Glucagon For Inj 1 Mg Vial) 1 mg IM UD PRN; Protocol PRN Reason: Hypoglycemia Protocol Stop: 06/17/23 10:59 Glucose (Glucose 40% Gel 15 Gm Tube) 15 - 30 gm PO UD PRN; Protocol PRN Reason: Hypoglycemia Protocol Stop: 06/17/23 10:59 Glucose (Glucose 10 Tab/Tube) 4 - 8 tab PO UD PRN; Protocol PRN Reason: Hypoglycemia Protocol Stop: 06/17/23 10:59 Heparin Sodium (Beef Lung) (Heparin 10 Unit/Ml 5 Ml Flush) 5 ml FLUSH PRN PRN PRN Reason: Flush Stop: 06/18/23 11:05 Last Admin: 05/19/23 18:21 Dose: 5 ml Famotidine 20 mg/ Syringe 5 mls @ 2.5 mls/min IV DAILY [facility] Stop: 06/13/23 08:59 Last Admin: 05/25/23 09:14 Dose: 2.5 mls/min Heparin Sodium/Dextrose (Heparin Sodium/Dextrose) 25,000 units in 500 mls @ 43 mls/hr IV .[id number] [facility]; Protocol Stop: 06/14/23 08:49 Last Titration: 05/25/23 06:54 Dose: 2,150 units/hr, 43 mls/hr Cefepime HCl 2,000 mg/ Syringe 20 mls @ 5 mls/min IV Q12H [facility]; Protocol Stop: 05/27/23 07:59 Last Admin: 05/25/23 09:14 Dose: 5 mls/min Metoprolol Tartrate (Metoprolol Tartrate 1 Mg/Ml Vial) 5 mg IV Q6 PRN PRN Reason: SBP>150, HR>110 Stop: 06/18/23 11:59 Miconazole Nitrate (Miconazole Nitrate Powder 85 Gm) 1 appln EXT PRN PRN PRN Reason: Affected Skin Folds Stop: 06/11/23 15:10 Last Admin: 05/21/23 12:05 Dose: 1 appln Miscellaneous (Carbohydrates For Hypoglycemia ) 15 - 30 gm PO UD PRN PRN Reason: Hypoglycemia Treatment Stop: 06/17/23 10:59 Nitroglycerin (Nitroglycerin Sl 0.4 Mg/Tab Tab) 0.4 mg SL Q5M PRN PRN Reason: Chest Pain Stop: 06/11/23 04:46 Prednisone (Prednisone 10 Mg Tablet) 10 mg PO DAILY [facility] Stop: 06/24/23 08:59 Last Admin: 05/25/23 09:13 Dose: 10 mg Sterile Water (Tube Feeding Water Flush) 30 ml NG Q4H [facility] Stop: 06/15/23 10:29 Last Admin: 05/25/23 09:37 Dose: 30 ml Thiamine HCl (Thiamine Hcl 100 Mg Tab) 100 mg NG DAILY [facility] Stop: 06/17/23 08:59 Last Admin: 05/25/23 09:14 Dose: 100 mg Torsemide (Torsemide 20 Mg Tab) 20 mg PO QAM [facility] Stop: 06/11/23 08:59 Last Admin: 05/12/23 09:16 Dose: 20 mg Verapamil HCl (Verapamil Hcl 240 Mg Tabcr) 240 mg PO QAM [facility] Stop: 06/11/23 08:59 Last Admin: 05/12/23 09:17 Dose: 240 mg Pending Studies at Discharge: No Stand-Alone Forms: My [facility] [employer], Medications to Prevent Stroke Skilled Items Patient informed of condition?: Yes DNR: No Discharge Level of Care: Other Communicable Disease: No Discharge Prognosis: Stable Lines: Peripheral IV Urinary Catheter: Yes Medications and DC Order Prescriptions: Continued verapamil 240 mg Capsule,Ext Rel. Pellets 24 Hr 240 mg PO QAM carvedilol 12.5 mg tablet 12.5 mg PO BID Qty: 60 0RF Rx Instructions: must administer with a meal/food torsemide 20 mg tablet 20 mg PO QAM Qty: 30 0RF prednisone 10 mg tablet 10 mg PO UD Qty: 75 0RF Rx Instructions: Taper as directed sildenafil 50 mg tablet 50 mg PO DAILY PRN (Reason: ..) ferrous sulfate [FeroSul] 325 mg (65 mg iron) tablet 325 mg PO DAILY Rx Instructions: Pt states takes daily. albuterol sulfate 90 mcg/actuation HFA aerosol inhaler 2 puff INHALATION Q4 PRN (Reason: Wheezing) warfarin 2 mg tablet 4 mg PO DAILY allopurinol 300 mg tablet 300 mg PO DAILY Discharge Orders: Discharge Order (Routine); Ordered 05/25/23 Ordered By: Laura Astorga/Other Patient Handouts: Prediabetes, 5 Steps for Eating Healthier Admission Data Admit Date/Time: 05/12/23 02:30 Attending Provider: Laura Young Admit Provider: Gustavo Dawkins Primary Care Provider: King Holcomb Other Providers: Gustavo Dawkins ; Camilo Hernandez ; Colton Murcia ; Verónica Burgos ; Rakel Jimenez ; Thais Woods ; Judson Ramirez Kathleen ; Jerome Florez ; Vitor Ledezma ; Kilo Hurst ; Virgil Penaloza ; Ce Eldridge ; Velma Calvin ; Hasmukh Ballesteros ; Clayton Roach ; Mahendra Corea ; Sha Rios ; Eliza eFlix ; Leon Dubon ; Nina Richards ; Marni Vásquez ; Ayana Morgan ; Deric Leyva ; Dragan Villatoro ; Harriet Murray ; Lai Rebolledo Other Interventions: Discharge Summary Assessment (RN) Last Done: 05/25/23 10:33
== END 2023-05-25 12:34 | DRG 4 ==
LOC: ED 22:17 → 4W 05-12 02:30 → SUATTDRO 05-12 02:30 → 4W 05-12 03:16 → 1E 05-13 02:12